=== PATIENT | female | born 1945 | race Caucasian/White ===

== ENCOUNTER → 2017-08-24 | Day surgery (SDC) | payer OTHER ==
[2017-08-04 11:38] VITALS: Ht 170.2 cm; Wt 80.9 kg
[~2017-08-24] VITALS: Ht 170.2 cm; Wt 80.9 kg
[~2017-08-24] MED LIST: 500ML BSSPLUS 0.5ML EPI1:1000 IRRIG ONE; ACETAMINOPHEN 325 MG TAB PO PRN; ASPI325T4 PO; ATOR-24 PO; ATROPINE SULFATE 0.1 MG/ML 5ML SYR IV PRN; ATROPINE SULFATE 1% OP OINT PER APPLICATION CHARGE ONE; ATROPINE SULFATE 1% OP SOLN 2 ML BTL ONE; BSS FLUSH ONE; BUPIVACAINE HCL 0.75% 10 ML AMP/VIAL ONE; BUPR-79 PO; CEFAZOLIN SOD 1 GM VIAL ONE; CHOL1000 PO; DEXAMETHASONE SOD INJ 4 MG/ML VIAL ONE; EpINEphrine INJ 1MG/ML AMP 1 MG/ML AMP ONE; FENTANYL CITRATE INJ 50 MCG/1 ML 2 ML VIAL IV PRN; FENTANYL CITRATE INJ 50 MCG/1 ML 2 ML VIAL ONE; HYALURONIDASE HUMAN 150 UNIT/ML INJ ONE; INDOCYANINE GREEN 25 MG/10 ML ONE; LABETALOL HCL IV 5 MG/ML 20ML IV PRN; LACTATED RINGER'S 1000ML 500 ML IV SCH; LIDOCAINE HCL 2% 2 ML VIAL (20MG/ML) ONE; MELO-83 PO; MIDAZOLAM HCL 1 MG/ML 2ML VIAL ONE; NEOMYCIN/POLYMYX/DEXAMETH OP OINT PER APP CHARGE ONE; NORT25CA PO; OCUCOAT 1 ML SOLN IO ONE; ONDANSETRON INJ 2 MG/ML 2 ML VIAL IV PRN; OXYB1TAB31 PO; POVIDONE-IODINE OP SOLN (SURGERY CNTR CHARGING ONLY) ONE; PRLSR20 PO; PROPARACAINE 0.5% OP SOLN PER DROP CHARGE OPL SCH; PROPOFOL IV EMULSION 10 MG/ML 20 ML VIAL IV ONE; SUMA50TA15 PO; TIMOLOL MALEATE 0.5% OP SOLN PER DROP CHARGE ONE; TOPI100T20 PO; TRAZ100T29 PO; TRIAMCINOLONE ACETONIDE OPHTH 40 MG/ML VIAL STERILE IO ONE; VANCOMYCIN HCL 1000MG/20ML VIAL ONE; VERA1TAB60 PO
[2017-08-24] MEDS: PHENYLEPHRINE HCL 2.5% OP SOLN PER DROP CHARGE OPL SCH ×2 (08:06→08:12)
[2017-08-24] MEDS: TROPICAMIDE 1% OP SOLN PER DROP CHARGE OPL SCH ×2 (08:07→08:13)
--- NOTE | 2017-08-24 08:26 | History & Physical Bridge - SC ---
H&P Re-Evaluation Bridge Note: Pt has macular pucker left eye and is having vitrectomy left eye. I have examined the patient, reviewed the History & Physical and in the interval since the performance of the History & Physical I have noted the following changes of clinical significance: No changes noted
--- NOTE | 2017-08-24 09:18 | [facility] Operative Report ---
Operative Report Date of Service Aug 24, 2017. Operative Report PREOPERATIVE DIAGNOSIS: Epiretinal membrane, left eye. ICD10: H35.372 POSTOPERATIVE DIAGNOSIS: same. PROCEDURE: 1. Pars plana vitrectomy, 23 gauge. 2. Membrane peeling of the internal limiting membrane and overlying epiretinal membrane. All to the left eye. CPT CODE: 83159 SURGEON: Israel Mcintosh D.O. COMPLICATIONS: None. ESTIMATED BLOOD LOSS: None. SPECIMENS: None. ANESTHESIA: Retrobulbar block and MAC. INDICATIONS FOR PROCEDURE: The patient has an epiretinal membrane that is visually significant. Vitrectomy surgery is indicated to decrease risk of vision loss and potentially improve vision. CONSENT: The risks, benefits and alternatives were discussed with the patient including but not limited to decreased visual acuity, failure to achieve desired results, loss of the eye, infection, pain, glaucoma, lens changes, retinal tears, retinal detachment, the need for more procedures, drooping of the eyelid, blindness, and double vision. The patient is aware of risks and consents to the surgery. Consent is signed and on the chart. OPERATION AND FINDINGS: The patient was brought to the operating room where the patient was identified by name, date, and medical record number. The surgical site was confirmed with the informed written consent. The patient was sedated by the anesthesiology team after which a 50:50 mixture of 2% lidocaine and 0.75% bupivacaine with hyaluronidase was administered in a standard retrobulbar fashion. A total of 4 ml was administered without difficulty. The patient was then prepped and draped in the usual sterile manner for retinal surgery. A wire lid speculum was placed and an Jonny 23-gauge trocar cannula system was employed. The inferior temporal trocar cannula was first placed in an angled fashion 3.75mm posterior to the surgical limbus and the infusion cannula was inserted into this cannula after which the intravitreal position was verified prior to turning the infusion on. Two more trocar cannulas were then inserted in an angled fashion, one in the superior temporal, and one in the superior nasal quadrant both 3.75mm posterior to the surgical limbus. A light pipe and vitrector were then introduced into the eye and the BIOM wide angle viewing system was brought into place. Standard core vitrectomy was performed the vitreous was insured to be totally detached from the posterior pole with the aid of the vitrector. Next 0.05ml of indocyanine green was placed over the macular surface to stain the internal limiting membrane. This was washed from the eye after 10 seconds. At this point a flat contact lens was placed on the surface of the eye and a flex scraper and ILM forceps were used to gently peel the internal limiting membrane and overlying epiretinal membrane off of the macular surface without difficulty. At this point scleral depression was performed for 360 degrees and no retinal tears or detachments were noted. The trocar cannulas were then removed and found to be water tight. The intraocular pressure was found to be within normal limits by palpation and subconjunctival injections of Kefzol and dexamethasone were administered inferiorly and superiorly. The wire lid speculum was removed. Maxitrol was applied to the surface of the eye. A light patch and shield were taped over the surface of the eye and the patient left the Operating Room in stable condition having tolerated the procedure well. DISPOSITION: The patient has an appointment the following morning in the Ophthalmology Clinic. The patient is to call immediately if there are any problems overnight. I attest to the content of the Intraoperative Record and any orders documented therein. Any exceptions are noted below.
--- NOTE | 2017-08-24 09:18 | Discharge Instructions-SurgCtr ---
Discharge Instructions Date of Service Aug 24, 2017. Visit Reason for Visit: Left Eye Epiretinal Membrane Discharge Discharge Diagnosis / Problem: same Discharge Goals Goal(s): Improve function Activity Recommendations Activity Limitations: per Instructions/Follow-up section Anesthesia . Post Anesthesia Instructions: If you have had General Anesthesia or IV Sedation: * Do not drive today. * Resume driving when surgeon permits. * Do not make important decisions or sign legal documents today. * Call surgeon for: 1. Temperature elevations greater than 101 degrees F. 2. Uncontrollable pain. 3. Excessive bleeding. 4. Persistent nausea and vomiting. 5. Medication intolerance (nausea, vomiting or rash). * For nausea and vomiting use only clear liquids such as: tea, soda, bouillon until nausea subsides, then gradually increase diet as tolerated. * If you have any concerns or questions, call your surgeon's office. If physician is unavailable and it is an emergency, call 911 or go to the nearest emergency room. . Instructions / Follow-Up Instructions / Follow-Up * May take Tylenol if needed for discomfort. * Do NOT remove eye shield. * NO straining, heavy lifting (>15 pounds) or bending below waist. * Avoid getting water or soap directly into operative eye. * Do NOT rub eye. If you experience increasing eye pain not relieved by medication, please contact us immediately at [phone]. If you are unable to reach someone at the above number, call [phone] and ask to speak with the EYE DOCTOR RAND TACKER. Inform them that you are a Dr. Mcintosh patient who had recent surgery. Diet Recommendations Home Diet: resume previous diet Procedures Procedures Performed: Left Eye 23 Gauge Vitrectomy, Membrane Peeling Pending Studies Studies pending at discharge: no Medical Emergencies . Who to Call and When: Medical Emergencies: If at any time you feel your situation is an emergency, please call 911 immediately. . Non-Emergent Contact Non-Emergency issues call your: Aircraft Painter Apprentice . . "Provider Documentation" section prepared by Israel Mcintosh. .
[2017-08-24 09:21] VITALS: TEMP 36.1
[2017-08-24 09:47] VITALS: BP 126/77; PULSE 73; O2SAT 97
--- NOTE | 2017-08-24 09:50 | Anesthesia Progress Nt - [facility] ---
Anesthesia Post Op Note Date & Time Aug 24, 2017 at 09:49 Vital Signs Pain Intensity: 3 Vital Signs Past 12 Hours Date Time Temp Pulse Resp B/P (MAP) Pulse Ox O2 Delivery O2 Flow Rate FiO2 08/24/17 09:47 73 16 126/77 (93) 97 Room Air 08/24/17 09:21 36.1 60 16 156/84 (108) 98 Room Air 08/24/17 07:56 36.4 81 18 141/63 (89) 97 Room Air Notes Mental Status: alert / awake / arousable, participated in evaluation Pt Amnestic to Procedure: Yes Nausea / Vomiting: adequately controlled Pain: adequately controlled Airway Patency, RR, SpO2: stable & adequate BP & HR: stable & adequate Hydration State: stable & adequate Anesthetic Complications: no major complications apparent
== END | disposition home or self-care (01) ==
LOC: X.SURG 07:47
PROVIDERS: ATTEND Ophthalmology
DX: H35.372 Puckering of macula, left eye (principal); F41.1 Generalized anxiety disorder; G47.00 Insomnia, unspecified; M47.816 Spondylosis without myelopathy or radiculopathy, lumbar region; D64.9 Anemia, unspecified; E11.9 Type 2 diabetes mellitus without complications; I10 Essential (primary) hypertension; E78.00 Pure hypercholesterolemia, unspecified; M19.90 Unspecified osteoarthritis, unspecified site; E66.9 Obesity, unspecified; E78.5 Hyperlipidemia, unspecified; F33.40 Major depressive disorder, recurrent, in remission, unspecified; Z98.41 Cataract extraction status, right eye; Z98.42 Cataract extraction status, left eye; Z87.81 Personal history of (healed) traumatic fracture; Z90.710 Acquired absence of both cervix and uterus; Z83.3 Family history of diabetes mellitus; Z96.649 Presence of unspecified artificial hip joint; Z82.49 Family history of ischemic heart disease and other diseases of the circulatory system; Z82.0 Family history of epilepsy and other diseases of the nervous system; Z83.42 Family history of familial hypercholesterolemia; Z68.30 Body mass index [BMI] 30.0-30.9, adult; Z79.82 Long term (current) use of aspirin

== ENCOUNTER 2018-09-01 07:07 | Inpatient (IN) ==
[2018-09-01] MEDS ORDERED: PIPERACILL/TAZOBAC CONSULT ACTIVE PRN (12:18)
[2018-09-01] MEDS ORDERED: PHENAZOPYRIDINE HCL 200 MG TAB PO PRN (12:58)
[2018-09-01 13:03] LABS: Hematocrit (blood only) 35.1 % (37-47); Hemoglobin 11.6 g/dL (12.0-16.0); Immature Granulocytes # (auto) 0.03 K/uL (0.00-0.02); Immature Granulocytes % (auto) 0.3 %; Lymphocytes % (auto) 6.8 %; Mean Corpuscular Volume 89.8 fL (80-100); Mean Platelet Volume 9.8 fL (7.4-10.4); Monocytes # (auto) 1.24 K/uL (0.11-0.59); Monocytes % (auto) 12.1 %; Neutrophils # (auto) 8.29 K/uL (1.4-6.5); Neutrophils % (auto) 80.8 %; Platelet Count 98 K/uL (130-400); Platelet Estimate Decreased (Normal); RDW Coefficient of Variation 12.8 % (11.5-14.5); RDW Standard Deviation 41.6 fL (36.4-46.3); Red Blood Count 3.91 M/uL (4.2-5.4); White Blood Count 10.26 K/uL (4.8-10.8)
[2018-09-01 13:11] LABS: Albumin Level 2.7 gm/dl (3.4-5.0); BUN Creatinine Ratio 18.7 (10-20); Calcium 7.8 mg/dl (8.5-10.1); Creatinine Clr Calc Pharmacy 73.6 ml/min; Est GFR (African American) 74.5; Est GFR (Non-African American) 64.3; Magnesium 1.7 mg/dl (1.8-2.4); Potassium 3.4 mmol/L (3.5-5.1)
[2018-09-01 13:13] LABS: INR 1.1 (0.9-1.1); Prothrombin Time 11.4 Seconds (9.0-12.0)
[2018-09-01 13:14] LABS: Albumin Globulin Ratio 0.8 (0.9-2); Bilirubin,Total 0.5 mg/dl (0.2-1); Globulin 3.5 gm/dl (2.5-4.0); Total Protein 6.2 gm/dl (6.4-8.2)
--- NOTE | 2018-09-01 13:26 | XRay Report ---
KUB CLINICAL HISTORY: UTI, evaluate for stone COMPARISON STUDY: None. FINDINGS: A right pelvic calcification reflects a phlebolith. Postoperative findings within the lumba r spine are noted as well as bilateral hip arthroplasties. No urinary calculi are identified. Moderat e gaseous distention of the transverse colon is noted. IMPRESSION: 1. No urinary calculus identified. 2. Moderate gaseous distention of the transverse colon, a nonspecific finding. Electronically signed by: Emanuel Lacey M.D. 09/01/2018 1:25 PM
[2018-09-01] MEDS: SODIUM CHLORIDE 0.9% 1000ML 1,000 ML IV SCH ×3 (13:28→23:49)
[2018-09-01] MEDS: PIPERACILLIN/TAZOBACTAM 4.5 GM in DEXTROSE 5% 100 ML IV SCH ×2 (13:28→20:37)
[2018-09-01] MEDS: IBUPROFEN 600 MG TAB PO PRN (13:28)
--- NOTE | 2018-09-01 13:36 | History & Physical Report ---
Date of Service September 01, 2018 Assessment & Plan (1) UTI (urinary tract infection): -Transferred from [facility], admitted to [facility] -Patient presented with 5 days of fevers, chills, body aches, generalized weakness -On presentation to [facility], temp 103F, HR 102, BP 148/52; initial lactate 2.3 with repeat being 1.6, UA grossly positive for UTI, WBC 11.5 K -Possible early sepsis -History of recurrent UTIs, with most recent cultures growing tetracycline resistant enterococcus and pansensitive E. coli -About 3 weeks ago, was treated with amoxicillin for enterococcus UTI after cystoscopy -S/P Zosyn and Invanz at [facility], will continue with Zosyn for now -Blood and urine cultures obtained at [facility], will need to follow results -Repeat labs on arrival to [facility] show WBC 10.2 K, lactic acid 1.7 -Febrile at 38.8; will utilize Motrin for now given the amount of Tylenol patient received [facility] (renal functions WNL) -IVF -KUB negative for renal calculi, consider CT if patient does not improve (2) Thrombocytopenia: -Platelet count 98K -No history of thrombocytopenia -No signs of bleeding -Possibly reactionary due to underlying infection -Follow CBC (3) Abnormal chest x-ray: -CXR [facility] suggesting possible right basilar infiltrate, however patient currently without pulmonary symptoms (4) HTN (hypertension): -BP controlled, continue verapamil (5) Diabetes mellitus type 2, diet-controlled: -Hgb A1c 5.9 05/2018 -Mild hyperglycemia noted on labs today, likely due to infection -will utilize NovoLog per protocol while hospitalized (6) Dyslipidemia: -Continue statin (7) Anxiety: (8) Depression: -Continue bupropion, nortriptyline, trazodone (9) Migraine: -Continue Topamax (10) DVT prophylaxis: -SCDs due to thrombocytopenia History of Present Illness Chief Complaint: Fever Primary Care Provider: Feliciano Steen MD 73 year old female who was transferred from [facility] ED for admission for fever and UTI. Patient reports she started to feel sick about 5 days ago. She reports body aches, chills, and generalized weakness. She did not take her temperature but suspected she had one. She reports a poor appetite but denies abdominal pain, nausea, vomiting, or diarrhea. No chest pain, shortness of breath, lightheadedness, dizziness, diaphoresis, syncopal events. No cough or sputum production. She has history of recurrent UTIs but denies any urinary symptoms. On 08/06, patient had a cysto for evaluation of microscopic hematuria and persistent urinary symptoms. Cultures grew enterococcus and patient was placed on amoxicillin which she has since completed. Pathology noted to be benign. When patient presented to [facility] ED last evening, she was febrile at 103, heart rate 102, BP stable at 148/52. Labs show WBC 11.5 K, creatinine 1.1, lactic acid 2.3 with recheck being 1.6. Patient was given Tylenol, Zosyn, Invanz, [address] was negative for acute findings. CXR questioned a right basilar pneumonia. At the time of my exam, patient is resting in bed in no acute distress reports she is feeling better. Vitals on arrival include temp 38.8, heart rate 93, BP 148/62. Allergies Allergy/AdvReac Type Severity Reaction Status Date / Time pregabalin Allergy Unknown SEVERE Unverified 08/24/17 07:54 EDEMA FROM KNEES TO FEET Home Medications Home Medications Medication Instructions Recorded Confirmed Type aspirin 81 mg PO DAILY 09/01/18 09/01/18 History atorvastatin 40 mg HS 09/01/18 09/01/18 History bupropion HCl 150 mg PO BID 09/01/18 09/01/18 History conjugated estrogens [Premarin] 1 applic VAGINAL MOWEFR 09/01/18 09/01/18 History meloxicam 15 mg PO DAILY 09/01/18 09/01/18 History nortriptyline 50 mg PO HS 09/01/18 09/01/18 History omeprazole 20 mg PO DAILY 09/01/18 09/01/18 History oxybutynin chloride 5 mg PO DAILY 09/01/18 09/01/18 History phenazopyridine [Pyridium] 200 mg PO TID PRN 09/01/18 09/01/18 History sumatriptan succinate [Imitrex] 50 mg PO UD PRN 09/01/18 09/01/18 History topiramate 100 mg PO HS 09/01/18 09/01/18 History trazodone 100 mg PO HS 02/27/19 02/27/19 History verapamil 240 mg PO DAILY 09/01/18 09/01/18 History Past Med/Surg History Medical History Anxiety (Chronic) Depression (Chronic) Migraine (Chronic) Esophageal stricture (Chronic) HTN (hypertension) (Chronic) Dyslipidemia (Chronic) Diabetes mellitus type 2, diet-controlled (Chronic) H/O: hysterectomy (Inactive) Surgical History H/O bladder repair surgery (Chronic) History of total left hip arthroplasty (Chronic) S/P TYLER (total abdominal hysterectomy) (Chronic) History of nasal surgery (Chronic) Previous back surgery (Chronic) History of cataract surgery (Chronic) H/O repair of left rotator cuff (Chronic) History of back surgery (Inactive) History of cataract surgery (Inactive) History of hip replacement (Inactive) left and right Family History Brother Heart attack, Onset Age: 46 Fatal Mother Parkinson's disease Father Multiple sclerosis Social History Preferred Language: Portuguese Communication Ability: Effective 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 Beliefs That Will Affect Care: None Current Living Situation: Spouse Other Information That Helps Us Care for You: No Feels Safe at Home: Yes Safety Concerns: Feels Safe At This Time Smoking Status: Never smoker Hx Alcohol Use: No Hx Substance Use: No Review of Systems ROS per HPI, all other systems reviewed and negative Physical Exam Vital Signs (Past 24 Hours): Last Vital Signs Temp 38.8 C H 09/01/18 11:17 Pulse 93 H 09/01/18 11:17 Resp 18 09/01/18 11:17 BP 148/62 H 09/01/18 11:17 Pulse Ox 98 09/01/18 11:17 Constitutional: WD/WN, vitals as above Eyes: PERRL, conjunctivae normal, anicteric sclerae ENMT: external ear and nose normal, oropharynx normal Respiratory: normal respiratory effort, lungs clear to auscultation Cardiovascular: Rate/Rhythm: regular rate and regular rhythm Vessels: normal peripheral pulses Extremities: no edema Gastrointestinal (Abdomen): normal bowel sounds, soft, nontender, no hepatosplenomegaly Musculoskeletal: no cyanosis or clubbing, extremities motor strength 5/5 Skin: no rashes, warm and dry Neurologic: PERRL, EOMI, accommodation nl, no face palsy, no dysarthria Psychiatric: A+Ox3, euthymic affect Genitourinary: no CVA tenderness Results & Data Laboratory Results Laboratory Last Values WBC 10.26 K/uL (4.8-10.8) 09/01/18 12: RBC 3.91 M/uL (4.2-5.4) L 09/01/18 12:28 Hgb 11.6 g/dL (12.0-16.0) L 09/01/18 12:28 Hct 35.1 % (37-47) L 09/01/18 12:28 MCV 89.8 fL (80-100) 09/01/18 12: MCH 29.7 pg (25-34) 09/01/18 12: MCHC 33.0 g/dL (32-36) 09/01/18 12:28 RDW Std Deviation 41.6 fL (36.4-46.3) 09/01/18 12:28 RDW Coeff of Cristel 12.8 % (11.5-14.5) 09/01/18 12: Plt Count 98 K/uL (130-400) L 09/01/18 12: MPV 9.8 fL (7.4-10.4) 09/01/18 12:28 Immature Gran % (Auto) 0.3 % 09/01/18 12:28 Neut % (Auto) 80.8 % 09/01/18 12:28 Lymph % (Auto) 6.8 % 09/01/18 12:28 Preston % (Auto) 12.1 % 09/01/18 12:28 Eos % (Auto) 0.0 % 09/01/18 12:28 Baso % (Auto) 0.0 % 09/01/18 12:28 Immature Gran # (Auto) 0.03 K/uL (0.00-0.02) H 09/01/18 12:28 Neut # (Auto) 8.29 K/uL (1.4-6.5) H 09/01/18 12:28 Lymph # (Auto) 0.70 K/uL (1.2-3.4) L 09/01/18 12:28 Preston # (Auto) 1.24 K/uL (0.11-0.59) H 09/01/18 12:28 Eos # (Auto) 0.00 K/uL (0-0.5) 09/01/18 12:28 Baso # (Auto) 0.00 K/uL (0-0.2) 09/01/18 12:28 Platelet Estimate Decreased (Normal) 09/01/18 12:28 PT 11.4 Seconds (9.0-12.0) 09/01/18 12:28 INR 1.1 (0.9-1.1) 09/01/18 12:28 Sodium 137 mmol/L (136-145) 09/01/18 12:28 Potassium 3.4 mmol/L (3.5-5.1) L 09/01/18 12:28 Chloride 110 mmol/L (98-107) H 09/01/18 12:28 Carbon Dioxide 20 mmol/L (21-32) L 09/01/18 12:28 Anion Gap 7.0 (3-11) 09/01/18 12:28 BUN 17 mg/dl (7-18) 09/01/18 12:28 Creatinine 0.89 mg/dl (0.6-1.2) 09/01/18 12:28 Est Cr Clr Drug Dosing 73.6 ml/min 09/01/18 12:28 Est GFR ( Amer) 74.5 09/01/18 12:28 Est GFR (Non-Af Amer) 64.3 09/01/18 12:28 BUN/Creatinine Ratio 18.7 (10-20) 09/01/18 12:28 Glucose 135 mg/dl (70-99) H 09/01/18 12:28 Lactate 1.7 mmol/L (0.4-2.0) 09/01/18 12:28 Calcium 7.8 mg/dl (8.5-10.1) L 09/01/18 12:28 Magnesium 1.7 mg/dl (1.8-2.4) L 09/01/18 12:28 Total Bilirubin 0.5 mg/dl (0.2-1) 09/01/18 12:28 AST 10 U/L (15-37) L 09/01/18 12:28 ALT 14 U/L (12-78) 09/01/18 12:28 Alkaline Phosphatase 103 U/L (45-117) 09/01/18 12:28 Total Protein 6.2 gm/dl (6.4-8.2) L 09/01/18 12:28 Albumin 2.7 gm/dl (3.4-5.0) L 09/01/18 12:28 Globulin 3.5 gm/dl (2.5-4.0) 09/01/18 12:28 Albumin/Globulin Ratio 0.8 (0.9-2) L 09/01/18 12:28 Code Status & VTE Plan VTE Prophylaxis Plan VTE Prophylaxis will be ordered: Yes Supervising Physician Co-Signing Physician Notes I have seen and examined the patient with nurse practitioner and agree with the assessment and plan as above and would like to comment that the is a 73 year old Female with medical history pertinent for recurrent Urinary tract infections (most recent cultures growing tetracycline resistant enterococcus and pansensitive E. coli) and current urine specimens growing from the transferring hospital from [facility] and recent instrumentation to bladder with cystoscopy by [facility] affiliated urology service. While being evaluated at [facility] for fever which is presumed to be from urinary tract infection, there was no genitourinary imaging and patient was sent to [facility] primarily because of the [facility] associated urology service is from this area. At this time, [facility] imaging in [facility] does not show any renal stones or suggestion of pyelonephritis. while this may still be a complicated urinary tract infection, do not believe immediate instrumentation by urologist is needed at this time. will attempt to treat with broad spectrum antibiotics. If patient's fever and symptoms does not respond to symptoms then will consider further abdominal/pelvic imaging and/or obtain urology consultation. will monitor if patient develops urinary retention and bladder scan as needed. currently no hahn Thrombocytopenia should be monitored closely in case of any interventions needed by urology agree with other medical issues and plans as listed by nurse practitioner Physical Exam General: obese Neuro: awake and alert, verbal Heart: regular rate Lungs: clear to auscultation bilaterally Abdomen: soft, nontender, bowel sounds present. abdomen feels warm to the touch Bladder: no tenderness on palpation Extremities: moves all extremities
[2018-09-01] MEDS ORDERED: HEPARIN SOD 5,000 UNIT/0.5 ML VIAL SQ SCH (14:00)
[2018-09-01] MEDS ORDERED: POTASSIUM CHLORIDE 20 MEQ TABCR PO STA (14:03)
[2018-09-01] MEDS ORDERED: GLUCOSE 40% GEL 15 GM TUBE PO PRN (14:05)
[2018-09-01] MEDS ORDERED: GLUCOSE 10 TABS/TUBE PO PRN (14:05)
[2018-09-01] MEDS ORDERED: DEXTROSE 50% 50 ML SYRINGE IV PRN (14:05)
[2018-09-01] MEDS ORDERED: GLUCAGON FOR INJ 1 MG VIAL SQ PRN (14:05)
[2018-09-01] MEDS ORDERED: CARBOHYDRATES FOR HYPOGLYCEMIA PO PRN (14:05)
[2018-09-01] MEDS: PREMARIN VAG CRM 14 APPLN/30 GM TUBE PV SCH (14:08)
[2018-09-01] MEDS: ASPIRIN 81 MG ECTAB PO SCH (14:26)
[2018-09-01] MEDS: PANTOprazole 40 MG TAB PO SCH (14:26)
[2018-09-01] MEDS: VERAPAMIL HCL 240 MG TABCR PO SCH (14:26)
[2018-09-01] MEDS ORDERED: MAGNESIUM SULFATE / D5W 1 GM/100 ML BAG IV ONE (14:30)
[2018-09-01] MEDS: INSULIN ASPART 100 UNITS/ML 3 ML PEN SC SCH ×2 (18:00→20:42)
--- NOTE | 2018-09-01 18:57 | Urology Consultation ---
Date of Consultation September 01, 2018 Assessment & Plan (1) UTI (urinary tract infection): sepsis- urine is the most likely source. will await cultures.. suspect blood cultures will be + as well with the fevers and rigors she had. she is comfrotable and fluids have helped along with ov abt It is worrying she had no typical cystitis symptoms during the illness. I asked pt and family to use thermometer at home with any future illnesses as we may have an opportunity to get her treated sooner if she reports any fevers prior to her progressing to such a serious illness like this time. happily she is already improving her lactic acid She is on typical therapy for utis, and has just started the topical estrogen cream 2 weeks ago so there has not been enough time to see if it is going to help. will follow. Present on Admission?: Yes History of Present Illness Reason for Consultation: Sepsis Requesting Physician: Dr Hutchins Attending Physician: Dimitry Hutchins MD History of Present Illness I am asked by Ely Verdin PA-C and Dr Hutchins to evaluate and treat patient for sepsis. She had an overwhelming febrile infectious illness starting 4 days prior to admission. She had a busy long 12 hr day going to [employer] then a golf show and was tired and achey Thursday night when she returned home. She slept well but woke up with headache and diffuse myalgias thursday am. She took her migraine medicine and went back to bed. when she woke up her headache was still present which is unusual for her. She began with chills on Thursday and poor appetite. Urine was not dark or cloudy or malodorous and she had no dysuria or specific kidney pain. Thursday she again had fatigue poor appetite, chills and body aches. Thursday night she had rigors and Thursday at 11pm she collapsed. She was taken by ambulance to [facility] and given IV fluids and iv abt. KUB was normal. She is feeling improved now after treatment but still tired. Allergies Allergy/AdvReac Type Severity Reaction Status Date / Time pregabalin Allergy Unknown SEVERE Unverified 08/24/17 07:54 EDEMA FROM KNEES TO FEET Home Medications Home Medications Medication Instructions Recorded Confirmed Type aspirin 81 mg PO DAILY 09/01/18 09/01/18 History atorvastatin 40 mg HS 09/01/18 09/01/18 History bupropion HCl 150 mg PO BID 09/01/18 09/01/18 History conjugated estrogens [Premarin] 1 applic VAGINAL MOWEFR 09/01/18 09/01/18 History meloxicam 15 mg PO DAILY 09/01/18 09/01/18 History nortriptyline 50 mg PO HS 09/01/18 09/01/18 History omeprazole 20 mg PO DAILY 09/01/18 09/01/18 History oxybutynin chloride 5 mg PO DAILY 09/01/18 09/01/18 History phenazopyridine [Pyridium] 200 mg PO TID PRN 09/01/18 09/01/18 History sumatriptan succinate [Imitrex] 50 mg PO UD PRN 09/01/18 09/01/18 History topiramate 100 mg PO HS 09/01/18 09/01/18 History trazodone 100 mg PO HS 09/01/18 09/01/18 History verapamil 240 mg PO DAILY 09/01/18 09/01/18 History Patient History Medical History Anxiety (Chronic) Depression (Chronic) Migraine (Chronic) Esophageal stricture (Chronic) HTN (hypertension) (Chronic) Dyslipidemia (Chronic) Diabetes mellitus type 2, diet-controlled (Chronic) H/O: hysterectomy (Inactive) Surgical History H/O bladder repair surgery (Chronic) History of total left hip arthroplasty (Chronic) S/P TYLER (total abdominal hysterectomy) (Chronic) History of nasal surgery (Chronic) Previous back surgery (Chronic) History of cataract surgery (Chronic) H/O repair of left rotator cuff (Chronic) History of back surgery (Inactive) History of cataract surgery (Inactive) History of hip replacement (Inactive) left and right Family History Brother Heart attack, Onset Age: 46 Fatal Mother Parkinson's disease Father Multiple sclerosis Social History Preferred Language: Central African Communication Ability: Effective Show Host Or Hostess Required: No Beliefs That Will Affect Care: None Current Living Situation: Spouse Other Information That Helps Us Care for You: No Feels Safe at Home: Yes Safety Concerns: Feels Safe At This Time Smoking Status: Never smoker Hx Alcohol Use: No Hx Substance Use: No Review of Systems pmh- DM, CAD, PVD, PSH- TAHBSO, left [employer], soc- retired, + children, no tobacco no alcohol ROS- no chest pain no SOB, + fever, + chills, + nausea, + weakness, no seizure, Bowels normal, no rash, no dysphagia Physical Exam Vital Signs (Past 24 Hours): Last Vital Signs Temp 36.8 C 09/01/18 16:58 Pulse 84 09/01/18 15:13 Resp 20 09/01/18 15:13 BP 126/63 09/01/18 15:13 Pulse Ox 96 09/01/18 15:13 Constitutional: WD/WN, vitals as above well developed and + obese; no acute distress Eyes: PERRL, conjunctivae normal, anicteric sclerae Respiratory: normal respiratory effort, lungs clear to auscultation Gastrointestinal (Abdomen): normal bowel sounds, soft, nontender, no hepatosplenomegaly Inspection/Auscultation: abdomen normal to inspection Skin: no rashes, warm and dry Psychiatric: A+Ox3, euthymic affect Orientation: oriented x 3 excellent historian
[2018-09-01] MEDS: ATORVASTATIN 40 MG TAB PO SCH (20:38)
[2018-09-01] MEDS: TRAZODONE HCL 100 MG TAB PO SCH (20:40)
[2018-09-01] MEDS: BuPROPion SR 150 MG TABCR PO SCH (20:41)
[2018-09-01] MEDS: NORTRIPTYLINE HCL 25 MG CAP PO SCH (20:42)
[2018-09-01] MEDS: TOPIRAMATE 100 MG TAB PO SCH (21:48)
[2018-09-02] MEDS: PIPERACILLIN/TAZOBACTAM 4.5 GM in DEXTROSE 5% 100 ML IV SCH ×3 (05:25→20:37)
[2018-09-02 07:34] LABS: Hematocrit (blood only) 31.8 % (37-47); Hemoglobin 10.4 g/dL (12.0-16.0); Mean Corpuscular Hgb Conc 32.7 g/dL (32-36); Mean Corpuscular Volume 89.6 fL (80-100); RDW Standard Deviation 42.8 fL (36.4-46.3); Red Blood Count 3.55 M/uL (4.2-5.4); White Blood Count 8.97 K/uL (4.8-10.8)
[2018-09-02] MEDS: ASPIRIN 81 MG ECTAB PO SCH (07:38)
[2018-09-02] MEDS: PANTOprazole 40 MG TAB PO SCH (07:38)
[2018-09-02] MEDS: BuPROPion SR 150 MG TABCR PO SCH ×2 (07:39→20:35)
[2018-09-02 07:41] LABS: Mean Platelet Volume 10.2 fL (7.4-10.4); Platelet Count 97 K/uL (130-400)
[2018-09-02] MEDS: OXYBUTYNIN CHLORIDE XL 5 MG TABCR PO SCH (07:42)
[2018-09-02] MEDS: VERAPAMIL HCL 240 MG TABCR PO SCH (07:43)
[2018-09-02 07:55] LABS: BUN Creatinine Ratio 22.4 (10-20); Calcium 7.7 mg/dl (8.5-10.1); Creatinine Clr Calc Pharmacy 87.3 ml/min; Est GFR (African American) 91.7; Est GFR (Non-African American) 79.1; Potassium 3.7 mmol/L (3.5-5.1)
[2018-09-02] MEDS: INSULIN ASPART 100 UNITS/ML 3 ML PEN SC SCH ×4 (08:43→20:38)
[2018-09-02] MEDS: SODIUM CHLORIDE 0.9% 1000ML 1,000 ML IV SCH ×2 (08:44→18:11)
[2018-09-02] MEDS: IBUPROFEN 600 MG TAB PO PRN (08:46)
[2018-09-02] MEDS ORDERED: SODIUM CHLORIDE 0.65% NA SOLN 45 ML (OCEAN) PRN (15:07)
--- NOTE | 2018-09-02 17:10 | Hospitalist Progress Note ---
Date of Service September 02, 2018 Assessment & Plan (1) Sepsis: resuscitated. Pulm and/or urine source. See below for details. (2) Pneumonia: RML infiltrate on xray at [facility]. Continue Zosyn. (3) UTI (urinary tract infection): Patient with recent positive urine culture in early August after a cystoscopy revealing tetracycline-resistant enterococcus. She presented with 5 days of fevers chills and body aches as well as generalized weakness to outside hospital ([facility]) just prior to arrival to [facility]. On presentation she was febrile and appeared septic. She was treated with broad-spectrum antibiotics and was transferred to [facility] as her Urologist has privileges here. Her urine was grossly positive for a urinary tract infection, however to date urine culture remains negative. Continue Zosyn (4) Thrombocytopenia: Stable, improved, likely related to consumption during infection (5) HTN (hypertension): -BP controlled, continue verapamil per home regimen. (6) Diabetes mellitus type 2, diet-controlled: Diet controlled, well controlled. A1c 5.9 in 05/2018. Continue fingersticks and NovoLog for coverage as needed. (7) Dyslipidemia: Lipitor (8) Depression: -Continue bupropion, nortriptyline, trazodone (9) Migraine: -Continue Topamax for migraine prophylaxis. She denies any headache since admission. (10) DVT prophylaxis: SCDs Full code Disposition-continue hospitalization. Workup today to include CT abdomen and pelvis. Lesvia Spain DO [facility] Hospitalist Subjective 73-year-old female presented with sepsis to outside hospital likely secondary to urinary source. She denies any symptoms today specifically, but reports some generalized weakness and fatigue. Appetite is low today. Physical Exam Vital Signs (Past 24 Hours): Last Vital Signs Temp 36.6 C 09/02/18 15:03 Pulse 71 09/02/18 15:03 Resp 16 09/02/18 15:03 BP 137/71 09/02/18 15:03 Pulse Ox 96 09/02/18 15:03 CONSTITUTIONAL: obese, vitals as above, NAD, lying supine in bed EYES: normal conjuctivae, no scleral icterus ENT: OP clear, MMM, no sinus TTP NECK: No LAD, no stiffness or restricted ROM. RESPIRATORY: clear to auscultation bilaterally, no crackles, rales or wheezes, normal respiratory effort CARDIOVASCULAR: regular rate and rhythm, S1 and 2 heard without murmurs, gallops or rubs, no JVD, no peripheral edema GASTROINTESTINAL: soft, nontender, nondistended, no CVA tenderness MUSCULOSKELETAL: moves all extremities equally, no gross focal deficits. G enerally weak. SKIN: warm and dry NEUROLOGIC: normal cognition, normal speech, no gross focal deficits. PSYCHIATRIC: alert cooperative and oriented to person, place and time.
[2018-09-02] MEDS: TRAZODONE HCL 100 MG TAB PO SCH (20:36)
[2018-09-02] MEDS: NORTRIPTYLINE HCL 25 MG CAP PO SCH (20:36)
[2018-09-02] MEDS: ATORVASTATIN 40 MG TAB PO SCH (20:36)
[2018-09-02] MEDS: TOPIRAMATE 100 MG TAB PO SCH (20:36)
[2018-09-03] MEDS: SODIUM CHLORIDE 0.9% 1000ML 1,000 ML IV SCH (03:54)
[2018-09-03] MEDS: PIPERACILLIN/TAZOBACTAM 4.5 GM in DEXTROSE 5% 100 ML IV SCH ×3 (04:00→20:50)
[2018-09-03 07:02] LABS: Hematocrit (blood only) 31.6 % (37-47); Hemoglobin 10.4 g/dL (12.0-16.0); Mean Corpuscular Hgb Conc 32.9 g/dL (32-36); Mean Corpuscular Volume 88.5 fL (80-100); Mean Platelet Volume 10.2 fL (7.4-10.4); Platelet Count 109 K/uL (130-400); RDW Coefficient of Variation 13.1 % (11.5-14.5); RDW Standard Deviation 42.7 fL (36.4-46.3); Red Blood Count 3.57 M/uL (4.2-5.4); White Blood Count 7.48 K/uL (4.8-10.8)
[2018-09-03] MEDS: OXYBUTYNIN CHLORIDE XL 5 MG TABCR PO SCH (08:06)
[2018-09-03] MEDS: IBUPROFEN 600 MG TAB PO PRN (08:06)
[2018-09-03] MEDS: PANTOprazole 40 MG TAB PO SCH (08:07)
[2018-09-03] MEDS: BuPROPion SR 150 MG TABCR PO SCH ×2 (08:07→20:52)
[2018-09-03] MEDS: ASPIRIN 81 MG ECTAB PO SCH (08:07)
[2018-09-03] MEDS: VERAPAMIL HCL 240 MG TABCR PO SCH (08:07)
[2018-09-03] MEDS: INSULIN ASPART 100 UNITS/ML 3 ML PEN SC SCH ×2 (08:35→14:50)
--- NOTE | 2018-09-03 08:44 | XRay Report ---
XR chest 1V portable CLINICAL HISTORY: fever, h/o pneumonia/sepsis COMPARISON STUDY: Chest radiograph January 16, 2016. FINDINGS: Anterior cervical spine fusion is incidentally noted. Lung volumes are diminished. This sug gests a hypoventilatory study. There are bibasilar opacities. There is pulmonary vascular congestion with possible mild pulmonary edema. Cardiac size is within normal limits. There may be a trace left p leural effusion. IMPRESSION: 1. Low lung volumes with bibasilar opacities which may reflect pneumonia or atelectasis. Radiographic follow up is recommended. 2. Pulmonary vascular congestion with possible mild pulmonary edema. Electronically signed by: Emanuel Lacey M.D. 09/03/2018 8:42 AM
--- NOTE | 2018-09-03 11:22 | Hospitalist Progress Note ---
Date of Service September 03, 2018 Assessment & Plan (1) Sepsis: resuscitated. Pulm and/or urine source. See below for details. (2) Pneumonia: RML infiltrate on xray at [facility]. Temp was up this morning. Chest x- ray reveals bibasilar atelectasis versus infiltrates. She reports coughing that is nonproductive. She is not much improved at this point. Continue Zosyn for empiric coverage of pneumonia. Of note blood cultures were checked to [facility] and are still negative to date. (3) UTI (urinary tract infection): Patient with recent positive urine culture in early August after a cystoscopy revealing tetracycline-resistant enterococcus. She presented with 5 days of fevers chills and body aches as well as generalized weakness to outside hospital ([facility]) just prior to arrival. On presentation she was febrile and appeared septic. She was treated with broad-spectrum antibiotics and was transferred to [facility] as she has a urology specialist who has privileges here. Her urine was grossly positive for a urinary tract infection, however to date urine culture remains negative. She has a new finding of CVA tenderness on the right today and is not much clinically improved overall. She also had a temperature this morning despite Zosyn continued for the last [address] of her abdomen pelvis without contrast and continue Zosyn at this time. We will continue to watch for urine culture results, however despite these being negative, will still likely treat for acute pyelonephritis. Appreciate urology weighing in. Patient is to continue estrogen cream for prophylaxis of recurrent UTIs which is an issue for her. (4) Thrombocytopenia: Stable, improved, likely related to consumption during infection (5) HTN (hypertension): -BP controlled, continue verapamil per home regimen. (6) Diabetes mellitus type 2, diet-controlled: Diet controlled, well controlled. A1c 5.9 in 05/2018. Fingersticks have been well under goal. Discontinuing NovoLog and fingersticks at this time. Continue diabetic diet. (7) Dyslipidemia: Lipitor (8) Depression: -Continue bupropion, nortriptyline, trazodone (9) Migraine: -Continue Topamax for migraine prophylaxis. She denies any headache since admission. (10) DVT prophylaxis: SCDs, start Lovenox as platelets greater than 100 K Full code Disposition-continue hospitalization. Workup today to include CT abdomen and pelvis. Lesvia Spain DO [facility] Hospitalist Subjective Reports not feeling much improved today. Reports persistent urgency of urination which is worse than her chronic urgency. Denies any dysuria but reports Pyridium has helped things in the past and she would like to try that. Denies any nausea and vomiting however, has no appetite. She is tolerating some p.o. Temp was up this morning. New CVA tenderness on the right was assessed on physical exam today. Overall she does not feel any worse but she does not feel any better. She does report some coughing that is nonproductive. She generally reports feeling weak. Physical Exam Vital Signs (Past 24 Hours): Last Vital Signs Temp 37.4 C 09/03/18 09:56 Pulse 92 H 09/03/18 07:27 Resp 22 09/03/18 07:27 BP 145/73 H 09/03/18 07:27 Pulse Ox 91 09/03/18 07:27 CONSTITUTIONAL: obese, vitals as above, NAD, lying supine in bed EYES: normal conjuctivae, no scleral icterus RESPIRATORY: clear to auscultation bilaterally, no crackles, rales or wheezes, normal respiratory effort CARDIOVASCULAR: regular rate and rhythm, S1 and 2 heard without murmurs, gallops or rubs, no JVD, no peripheral edema GASTROINTESTINAL: soft, nontender, nondistended, +CVA tenderness on the right MUSCULOSKELETAL: moves all extremities equally, no gross focal deficits. Generally weak. SKIN: warm and dry NEUROLOGIC: normal cognition, normal speech, no gross focal deficits. PSYCHIATRIC: alert cooperative and oriented to person, place and time. Results & Data Laboratory Results Short CBC 09/03/18 Range/Units 06:53 WBC 7.48 (4.8-10.8) K/uL Hgb 10.4 L (12.0-16.0) g/dL Hct 31.6 L (37-47) % Plt Count 109 L (130-400) K/uL Medications Administered Current Inpatient Medications Aspirin (Ecotrin Ectab) 81 mg PO DAILY [facility] Stop: 10/01/18 12:59 Last Admin: 09/03/18 08:07 Dose: 81 mg Documented by: Atorvastatin Calcium (Lipitor) 40 mg PO HS [facility] Stop: 10/01/18 20:59 Last Admin: 09/02/18 20:36 Dose: 40 mg Documented by: Bupropion HCl (Wellbutrin-Sr) 150 mg PO BID [facility] Stop: 10/01/18 20:59 Last Admin: 09/03/18 08:07 Dose: 150 mg Documented by: Dextrose (Dextrose 50%) 25 - 50 ml IV UD PRN; Protocol PRN Reason: Hypoglycemia Protocol Stop: 10/01/18 14:04 Estrogens Conjugated (Premarin Vag) 1 appln PV MOWEFR [facility] Stop: 10/01/18 13:59 Last Admin: 09/01/18 14:08 Dose: Not Given Documented by: Glucagon (Glucagen) 1 mg SQ UD PRN; Protocol PRN Reason: Hypoglycemia Protocol Stop: 10/01/18 14:04 Glucose (Glucose 40%) 15 - 30 gm PO UD PRN; Protocol PRN Reason: Hypoglycemia Protocol Stop: 10/01/18 14:04 Glucose (Dex4 Glucose) 4 - 8 tabs PO UD PRN; Protocol PRN Reason: Hypoglycemia Protocol Stop: 10/01/18 14:04 Piperacillin Sod/Tazobactam (Sod 4.5 gm/ Dextrose) 120 mls @ 30 mls/hr IV Q8H [facility]; Protocol Stop: 09/11/18 12:59 Last Infusion: 09/03/18 08:04 Dose: Infused Documented by: Ibuprofen (Motrin) 600 mg PO Q6H PRN PRN Reason: pain/fever Stop: 10/01/18 12:17 Last Admin: 09/03/18 08:06 Dose: 600 mg Documented by: Insulin Aspart (Novolog Flexpen) 0 units SC ACHS [facility] Stop: 10/01/18 16:29 Last Admin: 09/03/18 08:35 Dose: 3 units Documented by: Miscellaneous (Carbohydrates For Hypoglycemia) 15 - 30 gm PO UD PRN PRN Reason: Hypoglycemia Treatment Stop: 10/01/18 14:04 Miscellaneous Information (Consult) 1 ea N/A UD PRN PRN Reason: Consult Stop: 10/01/18 12:17 Nortriptyline HCl (Pamelor) 50 mg PO HS [facility] Stop: 10/01/18 20:59 Last Admin: 09/02/18 20:36 Dose: 50 mg Documented by: Oxybutynin Chloride (Ditropan Xl) 5 mg PO DAILY [facility] Stop: 10/02/18 08:59 Last Admin: 09/03/18 08:06 Dose: 5 mg Documented by: Pantoprazole Sodium (Protonix) 40 mg PO DAILY [facility] Stop: 10/01/18 12:59 Last Admin: 09/03/18 08:07 Dose: 40 mg Documented by: Phenazopyridine HCl (Pyridium) 200 mg PO TID PRN PRN Reason: urinary symptom Stop: 10/01/18 12:57 Sodium Chloride ([place] Nasal) 1 sprays NA PRN PRN PRN Reason: Dryness Stop: 10/02/18 15:06 Topiramate (Topamax) 100 mg PO HS [facility] Stop: 10/01/18 20:59 Last Admin: 09/02/18 20:36 Dose: 100 mg Documented by: Trazodone HCl (Desyrel) 100 mg PO HS [facility] Stop: 10/01/18 20:59 Last Admin: 09/02/18 20:36 Dose: 100 mg Documented by: Verapamil HCl (Calan Sr) 240 mg PO DAILY [facility] Stop: 10/01/18 12:59 Last Admin: 09/03/18 08:07 Dose: 240 mg Documented by:
--- NOTE | 2018-09-03 12:07 | CT Scan Report ---
CT OF THE ABDOMEN AND PELVIS WITHOUT CONTRAST CLINICAL HISTORY: UTI, +CVA tend, not clin improved COMPARISON STUDY: KUB September 01, 2018. TECHNIQUE: Axial images of the abdomen and pelvis were obtained without IV contrast. Images were revi ewed in the axial, sagittal, and coronal planes. Automated exposure control was utilized for the berenice dy. A dose lowering technique was utilized adhering to the principles of ALARA. FINDINGS: Imaged portions of the lower chest demonstrate small bilateral pleural effusions. Interlobu lar septal thickening indicates pulmonary edema. There are bilateral lower lobe, lingular and right m iddle lobe airspace opacities. Evaluation of the abdomen and pelvis is suboptimal on this unenhanced exam. No pneumatosis, free air or portal venous gas is present. A small amount of ascites within the right upper quadrant is noted. There is a small amount of ascites within the pelvis as well. Images o f the pelvis are degraded by streak artifact from bilateral hip arthroplasties. A 3 mm calculus withi n the lower pole of the left kidney is present. There is no hydronephrosis or hydroureter. Evaluation for distal ureteral calculi is difficult given streak artifact. Postoperative findings within the sp ine are noted. Unenhanced images of liver, spleen, adrenal glands are unremarkable. Marked fatty atro phy of the pancreas is noted. No biliary or pancreatic ductal dilatation. There is no evidence for a bowel obstruction. There is sigmoid diverticulosis without evidence for acute diverticulitis. No susp icious osseous lesions are noted. No renal abscess is identified on this unenhanced exam. There is no significant perinephric infiltration. IMPRESSION: 1. 3 mm left renal calculus. No hydronephrosis. No ureteral calculi identified although evaluation fo r distal ureteral calculi is difficult given streak artifact from hip arthroplasties. 2. No renal abscess on unenhanced CT. 3. Small bilateral pleural effusions with mild pulmonary edema. Bilateral lower lobe, lingular and ri ght middle lobe opacities which may reflect atelectasis or pneumonia. 4. Small abdominal and pelvic ascites. 5. Electronically signed by: Emanuel Lacey M.D. 09/03/2018 12:06 PM
[2018-09-03] MEDS: PREMARIN VAG CRM 14 APPLN/30 GM TUBE PV SCH (12:37)
[2018-09-03] MEDS ORDERED: FUROSEMIDE 10 MG in SYRINGE 0 ML IV ONE (13:00)
[2018-09-03] MEDS ORDERED: ENOXAPARIN INJ 40 MG/0.4 ML SYR SQ ONE (13:00)
[2018-09-03] MEDS: PHENAZOPYRIDINE HCL 200 MG TAB PO SCH ×2 (13:23→20:52)
[2018-09-03] MEDS: TRAZODONE HCL 100 MG TAB PO SCH (20:51)
[2018-09-03] MEDS: TOPIRAMATE 100 MG TAB PO SCH (20:51)
[2018-09-03] MEDS: NORTRIPTYLINE HCL 25 MG CAP PO SCH (20:51)
[2018-09-03] MEDS: ATORVASTATIN 40 MG TAB PO SCH (20:51)
[2018-09-04] MEDS: PIPERACILLIN/TAZOBACTAM 4.5 GM in DEXTROSE 5% 100 ML IV SCH ×2 (04:57→13:33)
[2018-09-04 06:45] LABS: Hemoglobin 9.7 g/dL (12.0-16.0); Mean Corpuscular Hgb Conc 33.4 g/dL (32-36); Mean Corpuscular Volume 88.1 fL (80-100); Mean Platelet Volume 9.9 fL (7.4-10.4); Platelet Count 137 K/uL (130-400); RDW Coefficient of Variation 13.3 % (11.5-14.5); RDW Standard Deviation 42.9 fL (36.4-46.3); Red Blood Count 3.29 M/uL (4.2-5.4); White Blood Count 5.93 K/uL (4.8-10.8)
[2018-09-04 07:32] LABS: BUN Creatinine Ratio 14.3 (10-20); Calcium 7.9 mg/dl (8.5-10.1); Creatinine Clr Calc Pharmacy 82.9 ml/min; Est GFR (African American) 86.1; Est GFR (Non-African American) 74.3; Potassium 3.6 mmol/L (3.5-5.1)
[2018-09-04] MEDS: VERAPAMIL HCL 240 MG TABCR PO SCH (08:53)
[2018-09-04] MEDS: ASPIRIN 81 MG ECTAB PO SCH (08:54)
[2018-09-04] MEDS: BuPROPion SR 150 MG TABCR PO SCH ×2 (08:54→20:59)
[2018-09-04] MEDS: PANTOprazole 40 MG TAB PO SCH (08:54)
[2018-09-04] MEDS: PHENAZOPYRIDINE HCL 200 MG TAB PO SCH ×3 (08:54→20:58)
[2018-09-04] MEDS: ENOXAPARIN INJ 40 MG/0.4 ML SYR SQ SCH (09:16)
--- NOTE | 2018-09-04 14:47 | Hospitalist Progress Note ---
Date of Service September 04, 2018 Assessment & Plan (1) Sepsis: resuscitated. Pulm and/or urine source. See below for details. (2) Pneumonia: RML infiltrate on xray at [facility]. Not visualized on CXR here, but she did have bilateral infiltrates at the bases consistent with atelectasis vs infection. Zosyn has been continued since admission and she is clinically improved. Nonproductive Cough yesterday, which was likely secondary to fluid overload in setting of appropriate aggressive resuscitation efforts, has resolved today after IVF stopped and Lasix was given x one dose. Will transition her to Levaquin 750 mg p.o. times 5 days. This will cover her from a pulmonary and urine standpoint. Of note urinalysis revealed evidence of infection, however, culture was finalized revealing <10K CFU of normal sabi. Additionally, she just took a 10-day course of amoxicillin as outpatient in early August, so would like to give her something different. (3) UTI (urinary tract infection): [facility] reports a final urine culture today of less than 10,000 colony- forming units of mixed sabi. The patient reports a resolution of bladder discomfort with Pyridium overnight. Transition to Levaquin as above. Continue with estrogen for prevention of recurrent UTIs. (4) Thrombocytopenia: Stable, improved, likely related to consumption during infection (5) HTN (hypertension): -BP controlled, continue verapamil per home regimen. (6) Diabetes mellitus type 2, diet-controlled: Diet controlled, well controlled. A1c 5.9 in 05/2018. Fingersticks and Novolog coverage were discontinued as she is in range consistently. Cont ADA diet. (7) Dyslipidemia: Lipitor (8) Depression: -Continue bupropion, nortriptyline, trazodone no hold as can interact with FQ and cause QTc prolongation. Will need to hold while taking the Levaquin. (9) Migraine: -Continue Topamax for migraine prophylaxis. She denies any headache since admission. (10) Anemia: Likely 2/2 dilutional effect. No bleeding. (11) DVT prophylaxis: SCDs, will add Lovenox today Full code Disposition-Likely DC in am. Lesvia Spain, [facility] Hospitalist Subjective clinically improved overall today tolerating PO denies abdominal pain or CVA tenderness reports resolution of urgency and dysuria no fevers or chills got some sleep overnight. at bedside and all plan was discussed with him. All questions answered. Physical Exam Vital Signs (Past 24 Hours): Last Vital Signs Temp 36.6 C 09/04/18 07:32 Pulse 75 09/04/18 07:32 Resp 20 09/04/18 07:32 BP 137/78 09/04/18 07:32 Pulse Ox 94 09/04/18 07:32 CONSTITUTIONAL: obese, vitals as above, NAD, lying supine in bed EYES: normal conjuctivae, no scleral icterus RESPIRATORY: clear to auscultation bilaterally, no crackles, rales or wheezes, normal respiratory effort CARDIOVASCULAR: regular rate and rhythm, S1 and 2 heard without murmurs, gallops or rubs, no JVD, no peripheral edema GASTROINTESTINAL: soft, nontender, nondistended, +CVA tenderness on the right MUSCULOSKELETAL: moves all extremities equally, no gross focal deficits. Generally weak. SKIN: warm and dry NEUROLOGIC: normal cognition, normal speech, no gross focal deficits. PSYCHIATRIC: alert cooperative and oriented to person, place and time. Results & Data Laboratory Results Short CBC 09/04/18 Range/Units 06:08 WBC 5.93 (4.8-10.8) K/uL Hgb 9.7 L (12.0-16.0) g/dL Hct 29.0 L (37-47) % Plt Count 137 (130-400) K/uL BMP 09/04/18 06:08 Sodium 141 Potassium 3.6 Chloride 114 H Carbon Dioxide 19 L BUN 11 Creatinine 0.79 Glucose 127 H Calcium 7.9 L Medications Administered Current Inpatient Medications Aspirin (Ecotrin Ectab) 81 mg PO DAILY [facility] Stop: 10/01/18 12:59 Last Admin: 09/04/18 08:54 Dose: 81 mg Documented by: Atorvastatin Calcium (Lipitor) 40 mg PO HS [facility] Stop: 10/01/18 20:59 Last Admin: 09/03/18 20:51 Dose: 40 mg Documented by: Bupropion HCl (Wellbutrin-Sr) 150 mg PO BID [facility] Stop: 10/01/18 20:59 Last Admin: 09/04/18 08:54 Dose: 150 mg Documented by: Enoxaparin Sodium (Lovenox) 40 mg SQ QAM [facility] Stop: 10/04/18 08:59 Last Admin: 09/04/18 09:16 Dose: 40 mg Documented by: Estrogens Conjugated (Premarin Vag) 1 appln PV MOWEFR [facility] Stop: 10/01/18 13:59 Last Admin: 09/03/18 12:37 Dose: Not Given Documented by: Piperacillin Sod/Tazobactam (Sod 4.5 gm/ Dextrose) 120 mls @ 30 mls/hr IV Q8H [facility]; Protocol Stop: 09/11/18 12:59 Last Admin: 09/04/18 13:33 Dose: 30 mls/hr Documented by: Ibuprofen (Motrin) 600 mg PO Q6H PRN PRN Reason: pain/fever Stop: 10/01/18 12:17 Last Admin: 09/03/18 08:06 Dose: 600 mg Documented by: Miscellaneous Information (Consult) 1 ea N/A UD PRN PRN Reason: Consult Stop: 10/01/18 12:17 Nortriptyline HCl (Pamelor) 50 mg PO HS [facility] Stop: 10/01/18 20:59 Last Admin: 09/03/18 20:51 Dose: 50 mg Documented by: Oxybutynin Chloride (Ditropan Xl) 5 mg PO DAILY [facility] Stop: 10/02/18 08:59 Last Admin: 09/03/18 08:06 Dose: 5 mg Documented by: Pantoprazole Sodium (Protonix) 40 mg PO DAILY [facility] Stop: 10/01/18 12:59 Last Admin: 09/04/18 08:54 Dose: 40 mg Documented by: Phenazopyridine HCl (Pyridium) 200 mg PO TID [facility] Stop: 09/05/18 13:59 Last Admin: 09/04/18 13:37 Dose: 200 mg Documented by: Sodium Chloride ([place] Nasal) 1 sprays NA PRN PRN PRN Reason: Dryness Stop: 10/02/18 15:06 Topiramate (Topamax) 100 mg PO HS [facility] Stop: 10/01/18 20:59 Last Admin: 09/03/18 20:51 Dose: 100 mg Documented by: Trazodone HCl (Desyrel) 100 mg PO HS [facility] Stop: 10/01/18 20:59 Last Admin: 09/03/18 20:51 Dose: 100 mg Documented by: Verapamil HCl (Calan Sr) 240 mg PO DAILY [facility] Stop: 10/01/18 12:59 Last Admin: 09/04/18 08:53 Dose: 240 mg Documented by:
[2018-09-04] MEDS ORDERED: ENOXAPARIN INJ 40 MG/0.4 ML SYR SQ SCH (15:15)
[2018-09-04] MEDS: ATORVASTATIN 40 MG TAB PO SCH (20:58)
[2018-09-04] MEDS: NORTRIPTYLINE HCL 25 MG CAP PO SCH (20:59)
[2018-09-04] MEDS: TOPIRAMATE 100 MG TAB PO SCH (21:00)
[2018-09-04] MEDS ORDERED: levoFLOXacin 750 MG TAB PO SCH (21:00)
[2018-09-05] MEDS: BuPROPion SR 150 MG TABCR PO SCH (08:06)
[2018-09-05] MEDS: PANTOprazole 40 MG TAB PO SCH (08:06)
[2018-09-05] MEDS: ENOXAPARIN INJ 40 MG/0.4 ML SYR SQ SCH (08:07)
[2018-09-05] MEDS: VERAPAMIL HCL 240 MG TABCR PO SCH (08:07)
[2018-09-05] MEDS: ASPIRIN 81 MG ECTAB PO SCH (08:07)
[2018-09-05] MEDS: PHENAZOPYRIDINE HCL 200 MG TAB PO SCH (08:07)
[2018-09-05 08:17] LABS: Hematocrit (blood only) 31.1 % (37-47); Hemoglobin 10.3 g/dL (12.0-16.0); Mean Corpuscular Hgb Conc 33.1 g/dL (32-36); Mean Corpuscular Volume 88.4 fL (80-100); Mean Platelet Volume 9.6 fL (7.4-10.4); Platelet Count 145 K/uL (130-400); RDW Coefficient of Variation 13.5 % (11.5-14.5); RDW Standard Deviation 43.4 fL (36.4-46.3); Red Blood Count 3.52 M/uL (4.2-5.4)
[2018-09-05] MEDS: OXYBUTYNIN CHLORIDE XL 5 MG TABCR PO SCH (08:26)
[2018-09-05 08:36] LABS: Calcium 8.4 mg/dl (8.5-10.1); Creatinine Clr Calc Pharmacy 100.7 ml/min; Est GFR (African American) 102.1; Est GFR (Non-African American) 88.1
[2018-09-05 09:24] LABS: BUN Creatinine Ratio 18.8 (10-20)
[2018-09-05] MEDS ORDERED: POTASSIUM CHLORIDE 20 MEQ TABCR PO ONE (10:45)
--- NOTE | 2018-09-05 11:48 | Discharge Summary ---
Date of Service September 05, 2018 Admission HPI Per Admitting Provider 73 year old female who was transferred from [facility] ED for admission for fever and UTI. Patient reports she started to feel sick about 5 days ago. She reports body aches, chills, and generalized weakness. She did not take her temperature but suspected she had one. She reports a poor appetite but denies abdominal pain, nausea, vomiting, or diarrhea. No chest pain, shortness of breath, lightheadedness, dizziness, diaphoresis, syncopal events. No cough or sputum production. She has history of recurrent UTIs but denies any urinary symptoms. On 08/06, patient had a cysto for evaluation of microscopic hematuria and p ersistent urinary symptoms. Cultures grew enterococcus and patient was placed on amoxicillin which she has since completed. Pathology noted to be benign. When patient presented to [facility] ED last evening, she was febrile at 103, heart rate 102, BP stable at 148/52. Labs show WBC 11.5 K, creatinine 1.1, lactic acid 2.3 with recheck being 1.6. Patient was given Tylenol, Zosyn, Invanz, [address] was negative for acute findings. CXR questioned a right basilar pneumonia. At the time of my exam, patient is resting in bed in no acute distress reports she is feeling better. Vitals on arrival include temp 38.8, heart rate 93, BP 148/62. Admission Exam Per Admitting Provider WD/WN, vitals as above Eyes: PERRL, conjunctivae normal, anicteric sclerae ENMT: external ear and nose normal, oropharynx normal Respiratory: normal respiratory effort, lungs clear to auscultation Cardiovascular: Rate/Rhythm: regular rate and regular rhythm Vessels: normal peripheral pulses Extremities: no edema Gastrointestinal (Abdomen): normal bowel sounds, soft, nontender, no hepatosplenomegaly Musculoskeletal: no cyanosis or clubbing, extremities motor strength 5/5 Skin: no rashes, warm and dry Neurologic: PERRL, EOMI, accommodation nl, no face palsy, no dysarthria Psychiatric: A+Ox3, euthymic affect Genitourinary: no CVA tenderness Principal Diagnosis Sepsis-resolved UTI Pneumonia Discharge Data Allergies Allergy/AdvReac Type Severity Reaction Status Date / Time pregabalin Allergy Unknown SEVERE Unverified 08/24/17 07:54 EDEMA FROM KNEES TO FEET Consultations 09/01/18 19:40 Consult Urology Routine Ordered Studies 09/03/18 11:30 CT abd pelvis wo con Urgent Hospital Course (1) Sepsis: resuscitated. Pulm and/or urine source. See below for details. (2) Pneumonia: (3) UTI (urinary tract infection): (4) Thrombocytopenia: (5) HTN (hypertension): (6) Diabetes mellitus type 2, diet-controlled: (7) Dyslipidemia: (8) Depression: (9) Migraine: (10) Anemia: 73-year-old female was transferred from [facility] for sepsis. On presentation to [facility] her temp was 103 F, heart rate 102, blood pressure 148/52. Initial lactate was 2.3 with repeat 1.6. Her white blood cell count was 11.5K. She had a known history of recurrent UTIs with most recent history of tetracycline-resistant enterococcus UTI after cystoscopy. She was transferred to [facility] as her urologist was here. She was given Zosyn and Invanz at [facility] and was continued on Zosyn at [facility]. Blood and urine cultures were obtained to [facility] and were followed. At time of discharge from [facility] finalized urine culture revealed no growth, and blood cultures were also negative to date. She was initially admitted to the floor and remained febrile. Aggressive fluid resuscitation was appropriately given. A KUB was negative for renal calculus. She had a thrombocytopenia secondary to infection which resolved during the admission with antibiotics. She was also found to have a right middle lobe infiltrate at [facility], but without pneumonia symptoms. She did start coughing on day 2 of hospitalization, but this was nonproductive. Repeat chest x-ray and subsequent CT of the abdomen and pelvis was performed revealing pulmonary edema, likely secondary to aggressive fluid resuscitation. She was given one dose of Lasix IV with complete resolution of shortness of breath. Zosyn was ultimately switched to Levaquin 750 mg p.o. daily to cover both pulmonary and urine sources. Amoxicillin was considered but not used as patient was recently treated with this 3 weeks ago as outpatient. Per urology she should continue her topical estrogen cream as instructed to help prevent recurrent UTIs moving forward. At time of discharge she was stable and afebrile for greater than 48 hours. She was tolerating p.o., ambulating at baseline and mentating at baseline. As she was started on Levaquin, trazodone was instructed to be held until antibiotic course was completed. This was to avoid unnecessary QTc prolongation. An EKG was performed to measure a QTC which was 471, not a contraindication for fluoroquinolone therapy. She and her verbalized understanding of all instructions with intent to comply. It is recommended that she follow-up with primary care within 1 week of discharge. Physical exam at time of discharge was unremarkable. Total Time Total Time Spent Total Time Spent (In Minutes): 60 Total Time Includes: Examination of the Patient, Discharge Planning, Medication Reconciliation and Communication With Other Providers Discharge Plan Discharge Items Patient Disposition: Home - Self-Care Reason For Visit: UTI Discharge Diagnosis: Sepsis-resolved UTI Pneumonia Condition: Good Discharge Goals: Decrease discomfort Activity: Resume your previous activity Non-emergency contact: Primary Care Provider Call non-emergency contact if: you have any medication questions, your symptoms worsen, your pain is not controlled, your pain is worsening, your pain is unusual for you, your pain is concerning for you and you have a fever Follow-up/Referrals: Feliciano Steen MD [Primary Care Provider] - Diet: Carb Consistent or DM2 and Heart Healthy Addtl Provider Instructions: Please take all medications as instructed on discharge list below. Please continue to hold taking the TRAZODONE while you are taking the LEVAQUIN. It is ok to resume this when the LEVAQUIN course is completed. It is recommended that you have a followup chest xray in 4-6 weeks to ensure complete resolution of the pneumonia. It is recommended that you follow up with your primary care provider within one week of discharge. Someone from our staff will call you on Thursday to set that up. It was a pleasure taking care of you! Please call if you have any questions or problems. You can reach a [facility] hospitalist on duty at [facility] 24 hours a day by calling [phone]. Take care of yourself. Lesvia Spain, [facility] [address] [facility] Hospitalist Prescriptions: New levofloxacin 750 mg Tablet 750 mg PO DAILY@2100 6 Days Qty: 6 RF: 0 Continued phenazopyridine [Pyridium] 200 mg Tablet 200 mg PO TID PRN (Reason: urinary symptom) RF: 0 aspirin 81 mg Tablet,Delayed Release (Dr/Ec) 81 mg PO DAILY RF: 0 Premarin 0.625 mg/gram cream 1 applic Vaginal MOWEFR RF: 0 atorvastatin 40 mg tablet 40 mg HS RF: 0 bupropion HCl 150 mg tablet sustained-release 12 hr 150 mg PO BID RF: 0 meloxicam 15 mg tablet 15 mg PO DAILY RF: 0 sumatriptan succinate [Imitrex] 50 mg Tablet 50 mg PO UD PRN (Reason: Migraine Headache) RF: 0 nortriptyline 25 mg capsule 50 mg PO HS RF: 0 trazodone 100 mg tablet 100 mg PO HS RF: 0 oxybutynin chloride 5 mg tablet extended release 24hr 5 mg PO DAILY RF: 0 omeprazole 20 mg capsule,delayed release(DR/EC) 20 mg PO DAILY RF: 0 verapamil 240 mg tablet extended release 240 mg PO DAILY RF: 0 topiramate 100 mg tablet 100 mg PO HS RF: 0 Stand-Alone Forms: [facility] Discharge Orders: Discharge Order (Routine); Ordered 09/05/18 Ordered By: Lesvia Spain Admission Data Admit Date/Time: 09/01/18 11:07 Attending Provider: Lesvia Spain Admit Provider: Dimitry Hutchins Primary Care Provider: Feliciano Steen Other Providers: Amy Bridges ; Lesvia Spain Service: Medical Other Interventions: Discharge Summary Assessment (RN) Last Done: 09/05/18 11:36 DC Date/Time DO NOT enter until pt leaves facility: 09/05/18 12:17
== END 2018-09-05 12:17 | disposition home or self-care (01) | DRG 871 ==
LOC: SUATTDRO 11:07 → 4E 11:07

== ENCOUNTER 2019-03-23 15:26 | Inpatient (IN) ==
[2019-03-23 16:15] LABS: Appearance Urine Cloudy (Clear); Bilirubin Urine Negative (Negative); Blood Urine 1+ (Negative); Color Urine Yellow; Glucose Urine UA Negative (Negative); Ketones Urine Negative (Negative); Leukocyte Esterase Urine 3+ (Negative); Nitrite Urine Negative (Negative); Protein Urine Negative (Negative); Specific Gravity Urine 1.012 (1.000-1.030); Urobilinogen Urine Negative (Negative)
[2019-03-23 16:37] LABS: Bacteria Urine Automated 1+ (Negative); Cast Urine Automated 0 /lpf (0-5); RBC Urine Automated 0-4 /hpf (0-4); WBC Urine Automated >30 /hpf (0-5)
[2019-03-23 18:07] LABS: Basophils # (auto) 0.02 K/uL (0-0.2); Basophils % (auto) 0.2 %; Eosinophils # (auto) 0.03 K/uL (0-0.5); Eosinophils % (auto) 0.3 %; Hematocrit (blood only) 33.5 % (37-47); Immature Granulocytes # (auto) 0.02 K/uL (0.00-0.02); Immature Granulocytes % (auto) 0.2 %; Lymphocytes # (auto) 1.25 K/uL (1.2-3.4); Lymphocytes % (auto) 12.5 %; Mean Corpuscular Hemoglobin 29.3 pg (25-34); Mean Corpuscular Hgb Conc 32.8 g/dL (32-36); Mean Corpuscular Volume 89.1 fL (80-100); Mean Platelet Volume 9.8 fL (7.4-10.4); Neutrophils # (auto) 7.47 K/uL (1.4-6.5); Neutrophils % (auto) 74.8 %; Platelet Count 158 K/uL (130-400); RDW Coefficient of Variation 13.3 % (11.5-14.5); RDW Standard Deviation 43.6 fL (36.4-46.3); Red Blood Count 3.76 M/uL (4.2-5.4); White Blood Count 9.99 K/uL (4.8-10.8)
[2019-03-23 18:23] LABS: Albumin Level 3.2 gm/dl (3.4-5.0); BUN Creatinine Ratio 12.7 (10-20); Calcium 9.1 mg/dl (8.5-10.1); Creatinine Clr Calc Pharmacy 43.1 ml/min; Est GFR (African American) 51.9; Est GFR (Non-African American) 44.8; Potassium 3.9 mmol/L (3.5-5.1)
[2019-03-23 18:26] LABS: Albumin Globulin Ratio 0.8 (0.9-2); Bilirubin,Total 0.6 mg/dl (0.2-1); Globulin 4.2 gm/dl (2.5-4.0); Total Protein 7.4 gm/dl (6.4-8.2)
[2019-03-23] MEDS ORDERED: SODIUM CHLORIDE 0.9% 1000ML 500 ML IV ONE (18:37)
[2019-03-23] MEDS ORDERED: SULFAMETHOXAZOLE/TRIMETHOPRIM DS 800/160MG TAB PO ONE (18:37)
--- NOTE | 2019-03-23 19:12 | CT Scan Report ---
CT OF THE ABDOMEN AND PELVIS WITHOUT CONTRAST CLINICAL HISTORY: Right flank pain. Evaluate for stone. COMPARISON STUDY: CT of the abdomen and pelvis September 03, 2018. TECHNIQUE: Axial images of the abdomen and pelvis were obtained without IV contrast. Images were revi ewed in the axial, sagittal, and coronal planes. Automated exposure control was utilized for the berenice dy. A dose lowering technique was utilized adhering to the principles of ALARA. FINDINGS: Incidental note is made of bilateral total hip arthroplasties and postoperative findings wi thin the lumbar spine. A 4 mm left ureteropelvic junction calculus results in moderate left hydroneph rosis. There is a punctate left renal calculus. There is no right hydronephrosis. Images of the pelvi s are degraded by streak artifact from bilateral hip arthroplasties. Unenhanced images of the liver, spleen, adrenal glands are unremarkable. Glandular atrophy of the pancreas is noted. There is no evid ence for a bowel obstruction. No pneumatosis, free air or portal venous gas is noted. Borderline sple nomegaly is unchanged. Trace fluid within the pelvis is noted. Colonic diverticulosis is present with out evidence for acute diverticulitis. IMPRESSION: 1. 4 mm left ureteropelvic junction calculus results in moderate left hydronephrosis with mild perine phric infiltration. 2. Punctate left renal calculus. Electronically signed by: Emanuel Lacey M.D. 03/23/2019 7:11 PM
[2019-03-23] MEDS ORDERED: PIPERACILL/TAZOBAC CONSULT ACTIVE PRN ×2 (19:19→22:48)
[2019-03-23] MEDS ORDERED: PIPERACILLIN/TAZOBACTAM 4.5 GM/120 ML BAG IV ONE (19:19)
[2019-03-23] MEDS ORDERED: ACETAMINOPHEN 1000 MG/100 ML IV IV ONE (19:43)
[2019-03-23] MEDS ORDERED: fentaNYL citrate 100 MCG/2 ML VIAL IV PRN (20:11)
[2019-03-23] MEDS ORDERED: LABETALOL HCL IV 5 MG/ML 20ML IV PRN (20:11)
[2019-03-23] MEDS ORDERED: ONDANSETRON INJ 2 MG/ML 2 ML VIAL IV PRN (20:11)
[2019-03-23] MEDS ORDERED: PHENYLEPHRINE 100MCG/ML 5ML SYR IV PRN (20:11)
[2019-03-23] MEDS ORDERED: ATROPINE SULFATE 0.1 MG/ML 10ML SYR IV PRN (20:11)
[2019-03-23] MEDS ORDERED: HYDROmorphone INJ 1 MG/ML SYRINGE IV PRN (20:11)
[2019-03-23] MEDS ORDERED: ePHEDrine sulfate 50 MG/ML AMP IV PRN (20:11)
--- NOTE | 2019-03-23 20:12 | Anesthesiology Consultation ---
Date of Service March 23, 2019 Assessment & Plan (1) Encounter for pre-operative examination: Chart Review Chart Review: Acceptable Risk for Surgery and Patient NOT seen in Pre Admission Testing Consults Requested none History Surgery Operation Date: 03/23/19 19:45 Proposed Procedures p Ureteral Stent Insertion/Removal - Amy Bridges MD Height/Weight Height: 5 ft 4 in Weight: 81.4 kg Allergies Allergy/AdvReac Type Severity Reaction Status Date / Time pregabalin Allergy Intermediate SEVERE Verified 03/23/19 17:01 EDEMA FROM KNEES TO FEET Medications Home Medications Medication Instructions Recorded Confirmed Last Taken aspirin 81 mg PO DAILY 09/01/18 03/23/19 03/22/19 atorvastatin 40 mg HS 09/01/18 03/23/19 03/22/19 bupropion HCl 150 mg PO BID 09/01/18 03/23/19 03/22/19 meloxicam 15 mg PO DAILY 09/01/18 03/23/19 03/22/19 nortriptyline 50 mg PO HS 09/01/18 03/23/19 03/22/19 omeprazole 20 mg PO DAILY 09/01/18 03/23/19 03/22/19 sumatriptan succinate [Imitrex] 50 mg PO UD PRN 09/01/18 03/23/19 Unknown topiramate 100 mg PO HS 09/01/18 03/23/19 03/22/19 trazodone 100 mg PO HS 09/01/18 03/23/19 03/22/19 verapamil 240 mg PO DAILY 09/01/18 03/23/19 03/22/19 losartan 25 mg PO DAILY 03/23/19 03/23/19 03/22/19 Past Medical History Medical History Anxiety (Chronic) Depression (Chronic) Migraine (Chronic) Esophageal stricture (Chronic) HTN (hypertension) (Chronic) Dyslipidemia (Chronic) Diabetes mellitus type 2, diet-controlled (Chronic) H/O: hysterectomy (Inactive) Past Family History Family History Brother Myocardial infarction, Onset Age: 46 Fatal Mother Parkinson's disease Father Multiple sclerosis Past Surgical History Surgical History H/O bladder repair surgery (Chronic) History of total left hip arthroplasty (Chronic) S/P TYLER (total abdominal hysterectomy) (Chronic) History of nasal surgery (Chronic) Previous back surgery (Chronic) History of cataract surgery (Chronic) H/O repair of left rotator cuff (Chronic) History of back surgery (Inactive) History of cataract surgery (Inactive) History of hip replacement (Inactive) left and right Social History Smoking Status: Never smoker Hx Alcohol Use: No Hx Substance Use: No Physical Exam Vital Signs Last Vital Signs Temp 39.4 C H 03/23/19 19:36 Pulse 75 03/23/19 19:07 Resp 22 03/23/19 19:07 BP 168/57 H 03/23/19 19:07 Pulse Ox 92 03/23/19 19:07 Testing Laboratory Results 03/23/19 17:57 03/23/19 17:57 Urine Color Yellow 03/23/19 15:45 Urine Appearance Cloudy (Clear) A 03/23/19 15:45 Urine pH 7.0 (4.5-7.5) 03/23/19 15:45 Ur Specific [place] 1.012 (1.000-1.030) 03/23/19 15:45 Urine Protein Negative (Negative) 03/23/19 15:45 Urine Glucose (UA) Negative (Negative) 03/23/19 15:45 Urine Ketones Negative (Negative) 03/23/19 15:45 Urine Nitrite Negative (Negative) 03/23/19 15:45 Ur Leukocyte Esterase 3+ (Negative) H 03/23/19 15:45 Urine WBC (Auto) >30 /hpf (0-5) H 03/23/19 15:45 Urine RBC (Auto) 0-4 /hpf (0-4) 03/23/19 15:45 U Hyaline Cast (Auto) 0 /lpf (0-5) 03/23/19 15:45 U Epithel Cells (Auto) 10-20 /lpf (0-5) H 03/23/19 15:45 Urine Bacteria (Auto) 1+ (Negative) H 03/23/19 15:45 Electrocardiogram Date: 09/05/18 Findings: + NSR @ (67) and + RBBB Chest X-Ray Date: 02/28/19 XR chest 2V routine CLINICAL HISTORY: fever ro pneumonia cough COMPARISON STUDY: 01/26/2019 FINDINGS: The bones soft tissues and hemidiaphragms are normal. The cardiomediastinal silhouette is normal. The lungs are clear. The pulmonary vasculature is normal. Minimal platelike atelectasis left base IMPRESSION: Negative chest. Minimal platelike atelectasis left base. The above report was generated using voice recognition software. It may contain grammatical, syntax or spelling errors. Electronically signed by: Papito Haskins M.D. 02/28/2019 10:40 PM Dictated: 02/28/19 2239 Transcribed: 02/28/19 2239
--- NOTE | 2019-03-23 20:39 | History & Physical Report ---
Date of Service March 23, 2019 Assessment & Plan (1) UTI (urinary tract infection): (2) Renal calculi: -Admit to MedSurg -Patient sent to the ED by referral PCP for evaluation of right flank pain, altered mental status -In the ED, CT ABD/pelvis showing 4 mm UPJ stone; UA suggest UTI -History of recurrent UTIs in the past, most recent urine culture 02/28 + for MSSA; patient initially treated with Cipro however changed to Bactrim once cultures resulted -Currently possible early sepsis; febrile 39.4, altered mental status; no leukocytosis, BP stable; check lactate -S/P Zosyn in the ED, will continue with -Urology notified by ED; patient going urgently to the OR tonight for cystoscopy (3) HTN (hypertension): -BP stable, continue verapamil and losartan (4) Diabetes mellitus type 2, diet-controlled: -NovoLog per protocol while hospitalized (5) Dyslipidemia: -Continue statin (6) Depression: (7) Anxiety: (8) Migraine: -Continue home meds (9) DVT prophylaxis: -SCDs due to invasive procedure this evening History of Present Illness Chief Complaint: Right flank pain Primary Care Provider: Feliciano Steen MD 73-year-old female who presents the ED for evaluation of right flank pain. Patient is somewhat confused and history is limited from her at this time. Family is the bedside. Patient was seen in the ED on 02/28 and diagnosed with UTI. She was discharged on Cipro however culture was positive for MSSA and patient was placed on Bactrim course which she completed. About 1 week ago, patient developed right flank pain. Family at the bedside reports that she is decompensated over the past couple of days. They report increasing confusion. Chills and rigors, however she did not take her temperature. She has had urinary frequency. Appetite has been poor however no nausea, vomiting, abdominal pain, diarrhea. No chest pain or shortness of breath. Denies lightheadedness, dizziness, diaphoresis, syncopal events. Patient was seen by her PCP and was sent to the ED for further evaluation. In the ED, CT ABD/pelvis is showing 4 mm left UPJ stone. Patient was initially afebrile however spiked a fever of 39.4. Labs are unremarkable. Patient was given IVF and IV Zosyn. Urology was contacted by the ED and patient will be going emergently to the OR tonight for cystoscopy. Allergies Allergy/AdvReac Type Severity Reaction Status Date / Time pregabalin Allergy Intermediate SEVERE Verified 03/23/19 17:01 EDEMA FROM KNEES TO FEET Home Medications Home Medications Medication Instructions Recorded Confirmed Type aspirin 81 mg PO DAILY 09/01/18 03/23/19 History atorvastatin 40 mg HS 09/01/18 03/23/19 History bupropion HCl 150 mg PO BID 09/01/18 03/23/19 History meloxicam 15 mg PO DAILY 09/01/18 03/23/19 History nortriptyline 50 mg PO HS 09/01/18 03/23/19 History omeprazole 20 mg PO DAILY 09/01/18 03/23/19 History sumatriptan succinate [Imitrex] 50 mg PO UD PRN 09/01/18 03/23/19 History topiramate 100 mg PO HS 09/01/18 03/23/19 History trazodone 100 mg PO HS 09/01/18 03/23/19 History verapamil 240 mg PO DAILY 09/01/18 03/23/19 History losartan 25 mg PO DAILY 03/23/19 03/23/19 History oxybutynin chloride 5 mg PO DAILY 03/23/19 03/23/19 History Past Med/Surg History Medical History Anxiety (Chronic) Depression (Chronic) Migraine (Chronic) Esophageal stricture (Chronic) HTN (hypertension) (Chronic) Dyslipidemia (Chronic) Diabetes mellitus type 2, diet-controlled (Chronic) Ureteral stone with hydronephrosis H/O: hysterectomy (Inactive) Surgical History H/O bladder repair surgery (Chronic) History of total left hip arthroplasty (Chronic) S/P TYLER (total abdominal hysterectomy) (Chronic) History of nasal surgery (Chronic) Previous back surgery (Chronic) History of cataract surgery (Chronic) H/O repair of left rotator cuff (Chronic) History of back surgery (Inactive) History of cataract surgery (Inactive) History of hip replacement (Inactive) left and right Family History Brother Myocardial infarction, Onset Age: 46 Fatal Mother Parkinson's disease Father Multiple sclerosis Social History Preferred Language: Filipino Communication Ability: Effective Airplane Cabin Attendant Required: No Beliefs That Will Affect Care: None Current Living Situation: Spouse Feels Safe at Home: Yes Smoking Status: Never smoker Hx Alcohol Use: No Hx Substance Use: No Review of Systems Review of Systems: ROS per HPI, all other systems reviewed and negative Physical Exam Physical Exam: Please refer to Dr. Smith's addendum for physical exam. Results & Data Vital Signs (Past 12 Hours) Vital Signs Temp Pulse Pulse Resp BP BP Pulse Ox 03/23/19 20:16 88 18 123/48 L 96 03/23/19 19:36 39.4 C H 03/23/19 19:07 75 22 168/57 H 92 03/23/19 17:56 84 30 H 128/104 H 94 03/23/19 17:41 36.8 C 03/23/19 15:39 36.7 C 77 18 123/63 99 Laboratory Results Short CBC 03/23/19 Range/Units 17:57 WBC 9.99 (4.8-10.8) K/uL Hgb 11.0 L (12.0-16.0) g/dL Hct 33.5 L (37-47) % Plt Count 158 (130-400) K/uL BMP 03/23/19 17:57 Sodium 138 Potassium 3.9 Chloride 106 Carbon Dioxide 22 BUN 15 Creatinine 1.20 Glucose 141 H Calcium 9.1 Liver Function 03/23/19 Range/Units 17:57 Total Bilirubin 0.6 (0.2-1) mg/dl AST 7 L (15-37) U/L ALT 11 L (12-78) U/L Alkaline Phosphatase 111 (45-117) U/L Albumin 3.2 L (3.4-5.0) gm/dl Urine 03/23/19 Range/Units 15:45 Urine Color Yellow Urine Appearance Cloudy A (Clear) Urine pH 7.0 (4.5-7.5) Ur Specific [place] 1.012 (1.000-1.030) Urine Protein Negative (Negative) Urine Glucose (UA) Negative (Negative) Diagnostic Findings CT ABD/PELVIS IMPRESSION: 1. 4 mm left ureteropelvic junction calculus results in moderate left hydronephrosis with mild perinephric infiltration. 2. Punctate left renal calculus. Code Status & VTE Plan VTE Prophylaxis Plan VTE Prophylaxis will be ordered: Yes Supervising Physician Co-Signing Physician Notes Patient is a 73-year-old female with history of hypertension, diet-controlled diabetes, depression, migraine, recurrent urinary tract infections and other problems presents with history of confusion, flank pain, increased urinary frequency, poor appetite, fever and chills which have been gradually worsening over 1 week. Patient denies any chest pain, shortness of breath, dizziness, nausea. Family reports she has been intermittently confused for the last 2 days. She was found to be febrile while in ED. CT abdomen showed 4 mm left ureteropelvic junction calculus, moderate left hydronephrosis with mild perinephric infiltration. Also noted punctate left renal calculus. Physical Exam: Vitals signs as noted above General Appearance:Moderately built and nourished, no apparent distress Head: normocephalic, Atraumatic Eyes: normal inspection, EOMI Neck: supple, Trachea midline Respiratory/Chest: Normal breath sounds, CTA Cardiovascular: S1, S2, + murmur Abdomen/GI:Soft, Non tender, CVA tender, Suprapubic tender, Bowel sounds present Extremities/Musculoskelatal:normal inspection, no edema Neurologic/Psych:AAOX3, grossly no focal neurological deficits Skin: normal color, warm Complicated urinary tract infection Obstructive uropathy secondary to renal calculi Possible sepsis Continue IV fluids, Zosyn, pain control Blood and urine cultures Urology consulted for cystoscopy and possible stent placement Start on flomax as able DM II Diet-controlled Check A1c Insulin sliding scale per protocol while hospitalized I personally reviewed the record. Patient is interviewed and examined at [facility]. Patient's care is coordinated with Ely Verdin [facility]. Please refer to the documentation above for details of patient's presentation and for discussion of other issues. (1) UTI (urinary tract infection) Hematuria presence: without hematuria Urinary tract infection type: site unspecified Qualified Code(s): N39.0 - Urinary tract infection, site not specified
--- NOTE | 2019-03-23 20:47 | Urology Consultation ---
Date of Consultation March 23, 2019 Assessment & Plan (1) HTN (hypertension): (2) Diabetes mellitus type 2, diet-controlled: (3) Renal calculi: has 4mm left upj stone with hydro and sepsis to OR now for cysto left stent in hospital admission for about 3 days getting zosyn in the ER, covers her prior urine bacteria Present on Admission?: Yes History of Present Illness Reason for Consultation: sepsis with left ureteral stone Requesting Physician: Ely Verdin PA-C History of Present Illness I am asked by Ely Verdin PA-C to evaluate and treat patient for left ureteral stone. She has had pain and weakness today. She has abdominal pain but no emesis. SHe has normal white count. ct shows left upj 4mm stone with hydro and some stranding. she spiked a high fever in ER a bit ago. She is getting zosyn. She has had frequent utis with a prior episode of sepsis in Aug 2018. Allergies Allergy/AdvReac Type Severity Reaction Status Date / Time pregabalin Allergy Intermediate SEVERE Verified 03/23/19 17:01 EDEMA FROM KNEES TO FEET Home Medications Home Medications Medication Instructions Recorded Confirmed Type aspirin 81 mg PO DAILY 09/01/18 03/23/19 History atorvastatin 40 mg HS 09/01/18 03/23/19 History bupropion HCl 150 mg PO BID 09/01/18 03/23/19 History meloxicam 15 mg PO DAILY 09/01/18 03/23/19 History nortriptyline 50 mg PO HS 09/01/18 03/23/19 History omeprazole 20 mg PO DAILY 09/01/18 03/23/19 History sumatriptan succinate [Imitrex] 50 mg PO UD PRN 09/01/18 03/23/19 History topiramate 100 mg PO HS 09/01/18 03/23/19 History trazodone 100 mg PO HS 09/01/18 03/23/19 History verapamil 240 mg PO DAILY 09/01/18 03/23/19 History losartan 25 mg PO DAILY 03/23/19 03/23/19 History oxybutynin chloride 5 mg PO DAILY 03/23/19 03/23/19 History Patient History Medical History Anxiety (Chronic) Depression (Chronic) Migraine (Chronic) Esophageal stricture (Chronic) HTN (hypertension) (Chronic) Dyslipidemia (Chronic) Diabetes mellitus type 2, diet-controlled (Chronic) Ureteral stone with hydronephrosis H/O: hysterectomy (Inactive) Surgical History H/O bladder repair surgery (Chronic) History of total left hip arthroplasty (Chronic) S/P TYLER (total abdominal hysterectomy) (Chronic) History of nasal surgery (Chronic) Previous back surgery (Chronic) History of cataract surgery (Chronic) H/O repair of left rotator cuff (Chronic) History of back surgery (Inactive) History of cataract surgery (Inactive) History of hip replacement (Inactive) left and right Family History Brother Myocardial infarction, Onset Age: 46 Fatal Mother Parkinson's disease Father Multiple sclerosis Social History Preferred Language: Macedonian Communication Ability: Effective Planning Associate Required: No Beliefs That Will Affect Care: None Current Living Situation: Spouse Feels Safe at Home: Yes Smoking Status: Never smoker Hx Alcohol Use: No Hx Substance Use: No Review of Systems Review of Systems: PMH- HTN, cholesterol, DM, depression and anxiety, migraine Soc- retired, no tobacco ROS- + fever sand chills, nausea present no emesis, + confusion, + fatigue, bowels ok, appetite fair, no seizures, Physical Exam Physical Exam: tired appearing, flushed, lying on her right side. answers questions appropriately chest- no rales or wheezes, shallow breaths, no dyspnea heart- regular rate and rhythm ext- no edema Results & Data Vital Signs (Past 12 Hours) Vital Signs Temp Pulse Pulse Resp BP BP Pulse Ox 03/23/19 20:16 88 18 123/48 L 96 03/23/19 19:36 39.4 C H 03/23/19 19:07 75 22 168/57 H 92 03/23/19 17:56 84 30 H 128/104 H 94 03/23/19 17:41 36.8 C 03/23/19 15:39 36.7 C 77 18 123/63 99
[2019-03-23] MEDS ORDERED: IOTHALAMATE MEGLUMINE II 17.2% 250 ML VIAL ONE (20:55)
[2019-03-23] MEDS ORDERED: fentaNYL citrate 100 MCG/2 ML VIAL ONE (21:12)
[2019-03-23] MEDS ORDERED: LIDOCAINE HCL 2% 2 ML VIAL/AMP(20MG/ML) INFIL ONE (21:13)
[2019-03-23] MEDS ORDERED: PROPOFOL IV EMULSION 10 MG/ML 20 ML VIAL IV ONE (21:13)
--- NOTE | 2019-03-23 21:26 | Operative Report ---
Post Operative Report Pre & Post Diagnosis Operation Date: 03/23/19 19:45 Pre-Op Diagnosis: Left ureteral stone, with sepsis Post-Op Diagnosis: Left ureteral stone, with sepsis Procedure Operation Date: 03/23/19 19:45 Actual Procedures p Cystoscopy, Left Ureteral Stent Insertion(Left) - Amy Bridges MD Surgeon Amy Bridges MD Fur Dresser none Estimated Blood Loss 0 Findings Consistent with Post-Op Diagnosis radio-lucent stone left upper ureter Fluids 200 Specimens urine for culture Drains 6 fr 24 centimeter double j stent Anesthesia Type MAC Complications none Disposition Accompanied Patient To Recovery: Yes Disposition: Surgical ICU Indications fever with obstructing left ureteral stone Description of Procedure Patient was sedated and placed in lithotomy position. Her genitals were prepped and draped in sterile fashion. Time out held with team. I placed a 21 fr rigid cystoscope to bladder. The urine is very cloudy with white debris. the bladder is mildly inflamed. I sent a urine for culture. The urethra is unremarkable. The UOs are round lateral position. I placed a road runner wire up left ureter and placed a 24 centimeter 6 Fr double J stent easily. There is brisk cloudy efflux after placement. I left bladder empty and concluded case. SHe transferred to recovery under my escort, in stable condition. Plan: inpatient stay for sepsis zosyn until blood and urine culture returned ASA 2e clean contaminated case 8 seconds fluoro zosyn antibiotic supervisor telephone information I attest to the content of the Intraoperative Record and any orders documented therein. Any exceptions are noted below.
--- NOTE | 2019-03-23 21:29 | Anesthesiology Progress Note ---
Date of Service March 23, 2019 Anesthesia Post Procedure Vital Signs Vital Signs: Temp Pulse Pulse Resp BP BP Pulse Ox 03/23/19 20:16 88 18 123/48 L 96 03/23/19 19:36 39.4 C H 03/23/19 19:07 75 22 168/57 H 92 03/23/19 17:56 84 30 H 128/104 H 94 03/23/19 17:41 36.8 C 03/23/19 15:39 36.7 C 77 18 123/63 99 Pain Intensity Flank: Pain Intensity: 0 Transfer of Care Handoff Completed per policy Notes Mental Status: alert / awake / arousable Patient Amnestic to Procedure: Yes Nausea / Vomiting: adequately controlled Pain: adequately controlled Airway Patency, RR, SpO2: stable & adequate BP & HR: stable & adequate Hydration State: stable & adequate Anesthetic Complications: no major complications apparent and Pt Satisfied with anesthetic care Notes: The patient is awake and her vital signs are stable in recovery.
[2019-03-23] MEDS ORDERED: DEXTROSE 50% 50 ML SYRINGE IV PRN (22:03)
[2019-03-23] MEDS ORDERED: GLUCOSE 40% GEL 15 GM TUBE PO PRN (22:03)
[2019-03-23] MEDS ORDERED: CARBOHYDRATES FOR HYPOGLYCEMIA PO PRN (22:03)
[2019-03-23] MEDS ORDERED: MoRPHine SULFATE 2 MG/ML CARP IV PRN (22:03)
[2019-03-23] MEDS ORDERED: GLUCAGON FOR INJ 1 MG VIAL SQ PRN (22:03)
[2019-03-23] MEDS ORDERED: GLUCOSE 10 TABS/TUBE PO PRN (22:03)
[2019-03-23] MEDS: SODIUM CHLORIDE 0.9% 1000ML 1,000 ML IV SCH (22:04)
[2019-03-23] MEDS: TOPIRAMATE 100 MG TAB PO SCH (22:41)
[2019-03-23] MEDS: ATORVASTATIN 40 MG TAB PO SCH (22:41)
[2019-03-23] MEDS: INSULIN ASPART 100 UNITS/ML 3 ML PEN SC SCH (22:42)
--- NOTE | 2019-03-23 22:57 | Emergency Department Note ---
Entered by Noelle Cunha acting as a scribe for History of Present Illness General Chief complaint: Illness Stated complaint: POSSIBLE SEPSIS, REF BY [facility] Source: patient History of Present Illness Provider complaint: Urinary symptoms Onset (ago): hour(s) Location: back Pain Consistency: + constant Maximum Pain Intensity: 5 Quality: + constant Associated symptoms: + cough, + fever/chills (fever) and + other (Positive: urinary frequency, lower back soreness, Negative: urinary burning, runny nose, congestion); no nausea/vomiting (vomiting) The patient is a 73 year old female with past medical history of anemia, sepsis, pneumonia, DVT prophylaxis, UTI, who presents to the ED with complaints of constant urinary symptoms that started today. The patient reports she has urination frequency but no burning. She notes she has had three similar episodes in the past. The patient states she has lower back soreness started a week ago w hich is worsened with movement. She reports the back soreness has been consistent with past episodes. The patient denies the pain radiating down her legs. She reports she had a fever this morning at the doctors office. She additionally notes she was referred here because the doctor is concerned about pyelonephritis or sepsis. The patient denies vomiting, congestion, or runny nose. She notes she has a cough. Home Medications Home Medications Medication Instructions Recorded Confirmed Type aspirin 81 mg PO DAILY 09/01/18 03/23/19 History atorvastatin 40 mg HS 09/01/18 03/23/19 History bupropion HCl 150 mg PO BID 09/01/18 03/23/19 History meloxicam 15 mg PO DAILY 09/01/18 03/23/19 History nortriptyline 50 mg PO HS 09/01/18 03/23/19 History omeprazole 20 mg PO DAILY 09/01/18 03/23/19 History sumatriptan succinate [Imitrex] 50 mg PO UD PRN 09/01/18 03/23/19 History topiramate 100 mg PO HS 09/01/18 03/23/19 History trazodone 100 mg PO HS 09/01/18 03/23/19 History verapamil 240 mg PO DAILY 09/01/18 03/23/19 History losartan 25 mg PO DAILY 03/23/19 03/23/19 History oxybutynin chloride 5 mg PO DAILY 03/23/19 03/23/19 History Allergies Allergy/AdvReac Type Severity Reaction Status Date / Time pregabalin Allergy Intermediate SEVERE Verified 03/23/19 17:01 EDEMA FROM KNEES TO FEET Past Med/Surg History Medical History Anxiety (Chronic) Depression (Chronic) Migraine (Chronic) Esophageal stricture (Chronic) HTN (hypertension) (Chronic) Dyslipidemia (Chronic) Diabetes mellitus type 2, diet-controlled (Chronic) Ureteral stone with hydronephrosis H/O: hysterectomy (Inactive) Surgical History H/O bladder repair surgery (Chronic) History of total left hip arthroplasty (Chronic) S/P TYLER (total abdominal hysterectomy) (Chronic) History of nasal surgery (Chronic) Previous back surgery (Chronic) History of cataract surgery (Chronic) H/O repair of left rotator cuff (Chronic) History of back surgery (Inactive) History of cataract surgery (Inactive) History of hip replacement (Inactive) left and right Family History Brother Myocardial infarction, Onset Age: 46 Fatal Mother Parkinson's disease Father Multiple sclerosis Social History Preferred Language: Mohawk Communication Ability: Effective Physician Pediatrician Required: No Beliefs That Will Affect Care: None Current Living Situation: Spouse Current Living Situation Comment: Home with spouse Other Information That Helps Us Care for You: No Feels Safe at Home: Yes Safety Concerns: Feels Safe At This Time Smoking Status: Never smoker Do You Dip or Chew Tobacco: No ; Second Hand Exposure: No ; Tobacco Cessation Education Requested by Patient: No Hx Alcohol Use: No Hx Substance Use: No Review of Systems See HPI for pertinent positives & negatives. and A total of 10 systems reviewed and were otherwise negative Physical Exam Vital Signs Vital Signs - 24 hr 03/23/19 15:39 03/23/19 17:41 03/23/19 17:56 Temperature 36.7 C 36.8 C Temperature Source Oral Oral Sepsis Recent Fever Within 48 Hours No Sepsis New/Unexplained Change in Mental Status No Sepsis Action Taken by Nursing No Action Required Pulse Rate 77 Pulse Rate [Finger] 84 Pulse Rhythm Regular Pulse Strength Normal Respiratory Rate 18 30 H Respiratory Effort / Characteristics Non-Labored Respiratory Depth Normal Respiratory Pattern Regular Blood Pressure 123/63 Blood Pressure [Right Arm] 128/104 H Blood Pressure Mean 83 Blood Pressure Mean [Right Arm] 112 Pulse Oximetry 99 94 Oxygen Delivery Method Room Air Room Air 03/23/19 19:07 03/23/19 19:36 03/23/19 20:16 Temperature 39.4 C H Temperature Source Oral Sepsis Recent Fever Within 48 Hours Sepsis New/Unexplained Change in Mental Status Sepsis Action Taken by Nursing Pulse Rate Pulse Rate [Finger] 75 88 Pulse Rhythm Pulse Strength Respiratory Rate 22 18 Respiratory Effort / Characteristics Respiratory Depth Respiratory Pattern Blood Pressure Blood Pressure [Right Arm] 168/57 H 123/48 L Blood Pressure Mean Blood Pressure Mean [Right Arm] 94 73 Pulse Oximetry 92 96 Oxygen Delivery Method Room Air Room Air Constitutional: Vital signs reviewed. Eyes: Pupils are equal round reactive to light. Conjunctiva are noninjected. ENT: Pharynx is clear without erythema or exudate. Mucous membranes are moist. Neck supple without meningeal signs. Respiratory: Clear to auscultation bilaterally. Breath sounds are equal bila terally. Cardiovascular: Regular rate and rhythm. No rubs or gallops. GI: Soft, nondistended and nontender. Bowel sounds are present. Musculoskeletal: No peripheral edema. No lower extremity tenderness. No CVA tenderness. Integumentary: No cyanosis. Neurological: The patient is awake and alert. No focal deficits. Psychiatric: Normal affect. Course 1636: The patient was evaluated in room B9. A complete history and physical exam was performed. 1914: I checked on the patient and updated her on test results. The patient sees Dr. Bridges. I put a page out. 1919: I discussed the patient's case with Dr. Bridges, Urology. She will see the patient in the morning and requested that she needs to be put on clear liquids in case she needs to go to OR. 1932: I discussed the patient's case with Dr. Larson, [facility] Hospitalist. 1949: The patient spiked a fever and Dr. Bridges informed she is taking her to the OR. Consultations Consultation #1: I discussed the patient's case with Dr. Bridges, Urology. She will see the patient in the morning and requested that she needs to be put on clear liquids in case she needs to go to OR. Time: 19:20 Consultation #2: I discussed the patient's case with Dr. Larson, [facility] Hospitalist. Time: 19:33 Administered Medications Atorvastatin Calcium (Lipitor) 40 mg PO HS DELORIS Stop: 04/22/19 22:02 Last Admin: 03/23/19 22:41 Dose: 40 mg Documented by: [id number] Sodium Chloride (Nss 1000ml) 1,000 mls @ 125 mls/hr IV .Q8H DELORIS Stop: 04/22/19 20:14 Last Admin: 03/23/19 22:04 Dose: 125 mls/hr Documented by: [id number] Insulin Aspart (Novolog Flexpen) 0 units SC ACHS DELORIS Stop: 04/22/19 22:02 Last Admin: 03/23/19 22:42 Dose: Not Given Documented by: [id number] Cosigned by: [id number] Topiramate (Topamax) 100 mg PO HS DELORIS Stop: 04/22/19 22:02 Last Admin: 03/23/19 22:41 Dose: 100 mg Documented by: [id number] Discontinued Medications Acetaminophen (Ofirmev) Confirm Administered Dose 1,000 mg IV .STK-MED ONE Stop: 03/23/19 19:44 Last Admin: 03/23/19 19:45 Dose: 650 mg Documented by: [id number] Sodium Chloride (Nss 1000ml) 500 mls @ 999 mls/hr IV .Q31M ONE Stop: 03/23/19 19:07 Last Infusion: 03/23/19 19:33 Dose: 0 mls/hr Documented by: [id number] Admin: 03/23/19 19:02 Dose: 999 mls/hr Documented by: [id number] Piperacillin Sod/Tazobactam Sod (Zosyn) 4.5 gm in 120 mls @ 240 mls/hr IV NOW ONE Stop: 03/23/19 19:48 Last Infusion: 03/23/19 22:20 Dose: 0 mls/hr Documented by: [id number] Infusion: 03/23/19 20:35 Dose: 200 mls/hr Documented by: [id number] Infusion: 03/23/19 19:44 Dose: 0 mls/hr Documented by: [id number] Admin: 03/23/19 19:32 Dose: 240 mls/hr Documented by: [id number] Iothalamate Meglumine (Cysto-Conray Ii) Confirm Administered Dose 250 ml .ROUTE .STK-MED ONE Stop: 03/23/19 20:56 Last Admin: 03/23/19 22:20 Dose: Not Given Documented by: [id number] Trimethoprim/Sulfamethoxazole (Septra Ds 800/160mg Tab) 1 tab PO NOW ONE Stop: 03/23/19 18:38 Last Admin: 03/23/19 19:02 Dose: 1 tab Documented by: [id number] Medical Decision Making Differential Diagnosis Differential Diagnosis: UTI, pyelonephritis, strain, renal colic, pancreatitis Medical Records Attestation: I reviewed the patient's medical records. The patient was called by the pharmacist on February 08 for MSSA in the urine culture. She was prescribed 5 days of Bactrim and was told to stop the Cipro she was originally prescribed. She was seen in the ED on the for UTI symptoms. Home Medications Current Medication List: was personally reviewed by me Laboratory Data Attestation: I reviewed the patient's lab results. Result diagrams: 03/23/19 17:57 03/23/19 17:57 Lab Results 03/23/19 03/23/19 03/23/19 Range/Units 15:45 17:57 17:57 WBC 9.99 (4.8-10.8) K/uL RBC 3.76 L (4.2-5.4) M/uL Hgb 11.0 L (12.0-16.0) g/dL Hct 33.5 L (37-47) % MCV 89.1 (80-100) fL MCH 29.3 (25-34) pg MCHC 32.8 (32-36) g/dL RDW Std Deviation 43.6 (36.4-46.3) fL RDW Coeff of Cristel 13.3 (11.5-14.5) % Plt Count 158 (130-400) K/uL MPV 9.8 (7.4-10.4) fL Immature Gran % (Auto) 0.2 % Neut % (Auto) 74.8 % Lymph % (Auto) 12.5 % Hardin % (Auto) 12.0 % Eos % (Auto) 0.3 % Baso % (Auto) 0.2 % Immature Gran # (Auto) 0.02 (0.00-0.02) K/uL Neut # (Auto) 7.47 H (1.4-6.5) K/uL Lymph # (Auto) 1.25 (1.2-3.4) K/uL Hardin # (Auto) 1.20 H (0.11-0.59) K/uL Eos # (Auto) 0.03 (0-0.5) K/uL Baso # (Auto) 0.02 (0-0.2) K/uL Sodium 138 (136-145) mmol/L Potassium 3.9 (3.5-5.1) mmol/L Chloride 106 (98-107) mmol/L Carbon Dioxide 22 (21-32) mmol/L Anion Gap 10.0 (3-11) BUN 15 (7-18) mg/dl Creatinine 1.20 (0.6-1.2) mg/dl Est Cr Clr Drug Dosing 43.1 ml/min Est GFR ( Amer) 51.9 Est GFR (Non-Af Amer) 44.8 BUN/Creatinine Ratio 12.7 (10-20) Glucose 141 H (70-99) mg/dl Lactate (0.4-2.0) mmol/L Calcium 9.1 (8.5-10.1) mg/dl Total Bilirubin 0.6 (0.2-1) mg/dl AST 7 L (15-37) U/L ALT 11 L (12-78) U/L Alkaline Phosphatase 111 (45-117) U/L Total Protein 7.4 (6.4-8.2) gm/dl Albumin 3.2 L (3.4-5.0) gm/dl Globulin 4.2 H (2.5-4.0) gm/dl Albumin/Globulin Ratio 0.8 L (0.9-2) Lipase 30 L (73-393) U/L Urine Color Yellow Urine Appearance Cloudy A (Clear) Urine pH 7.0 (4.5-7.5) Ur Specific [place] 1.012 (1.000-1.030) Urine Protein Negative (Negative) Urine Glucose (UA) Negative (Negative) Urine Ketones Negative (Negative) Urine Blood 1+ H (Negative) Urine Nitrite Negative (Negative) Urine Bilirubin Negative (Negative) Urine Urobilinogen Negative (Negative) Ur Leukocyte Esterase 3+ H (Negative) Urine WBC (Auto) >30 H (0-5) /hpf Urine RBC (Auto) 0-4 (0-4) /hpf U Hyaline Cast (Auto) 0 (0-5) /lpf U Epithel Cells (Auto) 10-20 H (0-5) /lpf Urine Bacteria (Auto) 1+ H (Negative) 03/23/19 Range/Units 20:34 WBC (4.8-10.8) K/uL RBC (4.2-5.4) M/uL Hgb (12.0-16.0) g/dL Hct (37-47) % MCV (80-100) fL MCH (25-34) pg MCHC (32-36) g/dL RDW Std Deviation (36.4-46.3) fL RDW Coeff of Cristel (11.5-14.5) % Plt Count (130-400) K/uL MPV (7.4-10.4) fL Immature Gran % (Auto) % Neut % (Auto) % Lymph % (Auto) % Hardin % (Auto) % Eos % (Auto) % Baso % (Auto) % Immature Gran # (Auto) (0.00-0.02) K/uL Neut # (Auto) (1.4-6.5) K/uL Lymph # (Auto) (1.2-3.4) K/uL Hardin # (Auto) (0.11-0.59) K/uL Eos # (Auto) (0-0.5) K/uL Baso # (Auto) (0-0.2) K/uL Sodium (136-145) mmol/L Potassium (3.5-5.1) mmol/L Chloride (98-107) mmol/L Carbon Dioxide (21-32) mmol/L Anion Gap (3-11) BUN (7-18) mg/dl Creatinine (0.6-1.2) mg/dl Est Cr Clr Drug Dosing ml/min Est GFR ( Amer) Est GFR (Non-Af Amer) BUN/Creatinine Ratio (10-20) Glucose (70-99) mg/dl Lactate 1.2 (0.4-2.0) mmol/L Calcium (8.5-10.1) mg/dl Total Bilirubin (0.2-1) mg/dl AST (15-37) U/L ALT (12-78) U/L Alkaline Phosphatase (45-117) U/L Total Protein (6.4-8.2) gm/dl Albumin (3.4-5.0) gm/dl Globulin (2.5-4.0) gm/dl Albumin/Globulin Ratio (0.9-2) Lipase (73-393) U/L Urine Color Urine Appearance (Clear) Urine pH (4.5-7.5) Ur Specific [place] (1.000-1.030) Urine Protein (Negative) Urine Glucose (UA) (Negative) Urine Ketones (Negative) Urine Blood (Negative) Urine Nitrite (Negative) Urine Bilirubin (Negative) Urine Urobilinogen (Negative) Ur Leukocyte Esterase (Negative) Urine WBC (Auto) (0-5) /hpf Urine RBC (Auto) (0-4) /hpf U Hyaline Cast (Auto) (0-5) /lpf U Epithel Cells (Auto) (0-5) /lpf Urine Bacteria (Auto) (Negative) Imaging Data Radiologist's Impression: Radiology results as stated below per my review and the radiologist's interpretation: CT OF THE ABDOMEN AND PELVIS WITHOUT CONTRAST CLINICAL HISTORY: Right flank pain. Evaluate for stone. COMPARISON STUDY: CT of the abdomen and pelvis September 03, 2018. TECHNIQUE: Axial images of the abdomen and pelvis were obtained without IV contrast. Images were reviewed in the axial, sagittal, and coronal planes. Automated exposure control was utilized for the study. A dose lowering technique was utilized adhering to the principles of ALARA. FINDINGS: Incidental note is made of bilateral total hip arthroplasties and postoperative findings within the lumbar spine. A 4 mm left ureteropelvic junction calculus results in moderate left hydronephrosis. There is a punctate left renal calculus. There is no right hydronephrosis. Images of the pelvis are degraded by streak artifact from bilateral hip arthroplasties. Unenhanced images of the liver, spleen, adrenal glands are unremarkable. Glandular atrophy of the pancreas is noted. There is no evidence for a bowel obstruction. No pneumatosis, free air or portal venous gas is noted. Borderline splenomegaly is unchanged. Trace fluid within the pelvis is noted. Colonic diverticulosis is present without evidence for acute diverticulitis. IMPRESSION: 1. 4 mm left ureteropelvic junction calculus results in moderate left hydronephrosis with mild perinephric infiltration. 2. Punctate left renal calculus. Electronically signed by: Emanuel Lacey M.D. 03/23/2019 7:11 PM Blood Pressure Blood Pressure Findings: Elevated blood pressure Blood Pressure Disposition: further management by hospitalist JOSE Hunter I did evaluate the patient as noted above. The patient is presenting with urinary symptoms with pain in her flank. She has had 2 recent UTIs treated with antibiotics. IV access was established. I did treat her with normal saline IV. I did order a urine analysis. She does have evidence of infection. I did treat her with Bactrim based on her prior culture. I did order and review the patient's blood work as noted in the electronic medical record. Her white count is not elevated. She has stable anemia 1.2. I did order a CT of the abdomen and pelvis. I did review the images myself as well as the radiology report as described above. She does have a left 4 mm UPJ stone with hydronephrosis and perinephric stranding. I did go ahead and treat her with Zosyn IV. I did discuss the test results with her and her family. I did recommend hospitalization for further care and evaluation. I did speak to Dr. Bridges of urology who recommends she be placed on clear liquids in case she needed an em ergent stent if she spiked a fever. I did discuss the case with the hospitalist and outpatient case manager. She then developed a fever and she was given Tylenol IV. Dr. Bridges was called back and the patient was taken to the OR for stent placement. Impression & Plan UTI (urinary tract infection), Anemia, Uropathy, obstructive, Renal colic Discharge Plan Visit Data *Final* Discharge Date/Time: 03/23/19 20:40 Chief Complaint: Illness Stated Complaint: POSSIBLE SEPSIS, REF BY [facility] ED Provider: Curtis Valdes Discharge Problem: UTI (urinary tract infection), Anemia, Uropathy, obstructive, Renal colic Patient Disposition: Admitted As Inpatient Discharge Instructions Interventions: ED Discharge Assessment Last Done: 03/23/19 20:40 Discharge Problem: UTI (urinary tract infection) Qualifiers: Urinary tract infection type: site unspecified Hematuria presence: without hematuria Qualified Code(s): N39.0 - Urinary tract infection, site not specified The scribe's documentation has been prepared under my direction and personally reviewed by me in its entirety. I confirm that the note above accurately reflects all work, treatment, procedures, and medical decision making performed by me.
[2019-03-23] MEDS ORDERED: PIPERACILLIN/TAZOBACTAM 3.375 GM in DEXTROSE 5% 100 ML IV ONE (23:00)
[2019-03-24] MEDS: ACETAMINOPHEN 325 MG TAB PO PRN ×2 (01:18→19:28)
[2019-03-24] MEDS ORDERED: KETOROLAC TROMETHAMINE 15 MG/ML VIAL IV ONE ×2 (02:46→21:00)
[2019-03-24] MEDS ORDERED: PIPERACILLIN/TAZOBACTAM 3.375 GM in DEXTROSE 5% 100 ML IV SCH (04:00)
[2019-03-24] MEDS: SODIUM CHLORIDE 0.9% 1000ML 1,000 ML IV SCH ×3 (06:20→21:12)
[2019-03-24 07:11] LABS: Hematocrit (blood only) 29.2 % (37-47); Hemoglobin 9.3 g/dL (12.0-16.0); Mean Corpuscular Hemoglobin 28.3 pg (25-34); Mean Corpuscular Hgb Conc 31.8 g/dL (32-36); Mean Corpuscular Volume 88.8 fL (80-100); Mean Platelet Volume 9.7 fL (7.4-10.4); Platelet Count 134 K/uL (130-400); RDW Coefficient of Variation 13.3 % (11.5-14.5); RDW Standard Deviation 43.6 fL (36.4-46.3); Red Blood Count 3.29 M/uL (4.2-5.4); White Blood Count 9.62 K/uL (4.8-10.8)
[2019-03-24 07:35] LABS: BUN Creatinine Ratio 11.5 (10-20); Creatinine Clr Calc Pharmacy 45.4 ml/min; Est GFR (African American) 55.2; Est GFR (Non-African American) 47.7; Potassium 3.4 mmol/L (3.5-5.1)
[2019-03-24] MEDS: VERAPAMIL HCL 240 MG TABCR PO SCH (08:05)
[2019-03-24] MEDS: OXYBUTYNIN CHLORIDE 5 MG TAB PO SCH (08:06)
[2019-03-24] MEDS: ASPIRIN 81 MG ECTAB PO SCH (08:06)
[2019-03-24] MEDS: LOSARTAN POTASSIUM 25 MG TAB PO SCH (08:06)
[2019-03-24] MEDS: BuPROPion SR 150 MG TABCR PO SCH ×2 (08:06→21:17)
[2019-03-24 08:28] LABS: Estimated Average Glucose 140 mg/dl; Hemoglobin A1C 6.5 % (4.5-5.6)
--- NOTE | 2019-03-24 09:23 | Fluoroscopy Report ---
FL KUB CLINICAL HISTORY: 73 years-old Female presenting with LT CYSTO STENT. TECHNIQUE: 2 fluoroscopic image(s) recorded as part of an intraoperative procedure. COMPARISON: CT from earlier today. FINDINGS/IMPRESSION: A guidewire was advanced into the left renal pelvis. Subsequently, a left ureteral stent was placed. Partially visualized lumbar posterior fusion hardware and laminectomy defects. Please see surgical report for further details. Fluoroscopy dosage (mGy): 1.65. Fluoroscopy time: 8.5 seconds. Number or time of high level fluoroscopy (HLF), digital spot, or digital subtraction images: 0. Electronically signed by: Jose Donohue M.D. 03/24/2019 9:22 AM
--- NOTE | 2019-03-24 10:08 | Anesthesiology Progress Note ---
Date of Service March 24, 2019 Anesthesia Post Procedure Vital Signs Vital Signs: Temp Pulse Pulse Pulse Pulse Resp BP 03/24/19 07:27 37.0 C 58 L 17 03/24/19 04:40 37.2 C 03/24/19 02:51 39.6 C H 85 21 03/24/19 02:37 38.8 C H 03/24/19 01:15 37.7 C H 03/24/19 01:00 37.8 C H 69 19 03/24/19 00:00 37.0 C 69 17 03/23/19 23:00 37.1 C 68 16 03/23/19 22:26 37.2 C 67 16 03/23/19 22:06 37.5 C 16 03/23/19 21:45 36.6 C 72 16 03/23/19 21:35 72 16 03/23/19 21:25 36.5 C 78 16 03/23/19 20:16 88 18 03/23/19 19:36 39.4 C H 03/23/19 19:07 75 22 03/23/19 17:56 84 30 H 03/23/19 17:41 36.8 C 03/23/19 15:39 36.7 C 77 18 123/63 BP BP Pulse Ox 03/24/19 07:27 121/57 L 98 03/24/19 04:40 03/24/19 02:51 129/71 94 03/24/19 02:37 03/24/19 01:15 03/24/19 01:00 147/55 H 96 03/24/19 00:00 118/68 96 03/23/19 23:00 106/58 L 95 03/23/19 22:26 110/64 96 03/23/19 22:06 108/55 L 94 03/23/19 21:45 117/50 L 97 03/23/19 21:35 121/51 L 97 03/23/19 21:25 122/40 L 94 03/23/19 20:16 123/48 L 96 03/23/19 19:36 03/23/19 19:07 168/57 H 92 03/23/19 17:56 128/104 H 94 03/23/19 17:41 03/23/19 15:39 99 Pain Intensity Flank: Pain Intensity: 0 Notes Mental Status: alert / awake / arousable and participated in evaluation Nausea / Vomiting: adequately controlled Pain: adequately controlled Airway Patency, RR, SpO2: stable & adequate BP & HR: stable & adequate Hydration State: stable & adequate
[2019-03-24] MEDS: INSULIN ASPART 100 UNITS/ML 3 ML PEN SC SCH ×4 (10:21→21:20)
[2019-03-24] MEDS: cefTRIAXone SODIUM 2,000 MG in DEXTROSE 5% 50 ML IV SCH (11:25)
--- NOTE | 2019-03-24 18:13 | Hospitalist Progress Note ---
Date of Service March 24, 2019 Assessment & Plan (1) UTI (urinary tract infection): Completed UTI in the setting of obstructed left ureter pelvic renal stone with left hydro-nephrosis Continue empiric antibiotic with IV Zosyn Follow cultures (2) Renal calculi: Presented with flank pain, fever CT abdomen pelvis noncontrast showed 1. 4 mm left ureteropelvic junction calculus resulting moderate left hydronephrosis with mild perinephric infiltration Appreciate input from urology Status post left ureteric stent placement Patient reports symptomatic improvement of left flank pain, Experiencing a burning sensation patient which is common after stent placement No IV antibiotic as patient continues to spike temperature intermittently (3) HTN (hypertension): -BP stable, continue verapamil and losartan (4) Diabetes mellitus type 2, diet-controlled: -NovoLog per protocol while hospitalized (5) Dyslipidemia: -Continue statin (6) Depression: (7) Anxiety: (8) Migraine: -Continue home meds (9) DVT prophylaxis: -SCD and teds, patient is encouraged to ambulate Disposition: Expected to be discharged home in next 24 to 48 hours if remains afebrile Subjective Been spiking temperature, Still experiencing left-sided flank pain, intermittent hematuria No nausea vomiting Feels tired and wiped out Physical Exam Constitutional: + ill appearing Eyes: PERRL, conjunctivae normal, anicteric sclerae ENMT: external ear and nose normal, oropharynx normal Neck: trachea midline, no thyromegaly Respiratory: normal respiratory effort, lungs clear to auscultation Cardiovascular: RRR, no murmur, no edema Gastrointestinal (Abdomen): Percussion/Palpation: + abdomen tender Left CVA tenderness Musculoskeletal: no cyanosis or clubbing, extremities motor strength 5/5 Skin: no rashes, warm and dry Neurologic: PERRL, EOMI, accommodation nl, no face palsy, no dysarthria Psychiatric: A+Ox3, euthymic affect Orientation: alert and oriented x 3 Speech: normal rate/rhythm/volume of speech Results & Data Vital Signs (Past 12 Hours) Vital Signs Temp Pulse Resp BP Pulse Ox 03/24/19 15:58 37.2 C 57 L 18 109/47 L 96 03/24/19 07:27 37.0 C 58 L 17 121/57 L 98 (1) UTI (urinary tract infection) Hematuria presence: without hematuria Urinary tract infection type: site unspecified Qualified Code(s): N39.0 - Urinary tract infection, site not specified
[2019-03-24] MEDS ORDERED: KETOROLAC 30 MG/ML VIAL IV ONE (20:35)
[2019-03-24] MEDS: ATORVASTATIN 40 MG TAB PO SCH (21:17)
[2019-03-24] MEDS: TRAZODONE HCL 100 MG TAB PO SCH (21:17)
[2019-03-24] MEDS: TOPIRAMATE 100 MG TAB PO SCH (21:17)
[2019-03-24] MEDS: NORTRIPTYLINE HCL 25 MG CAP PO SCH (21:17)
[2019-03-25] MEDS: SODIUM CHLORIDE 0.9% 1000ML 1,000 ML IV SCH (04:56)
[2019-03-25] MEDS: ASPIRIN 81 MG ECTAB PO SCH (08:29)
[2019-03-25] MEDS: BuPROPion SR 150 MG TABCR PO SCH ×2 (08:29→21:18)
[2019-03-25] MEDS: OXYBUTYNIN CHLORIDE 5 MG TAB PO SCH (08:29)
[2019-03-25] MEDS: LOSARTAN POTASSIUM 25 MG TAB PO SCH (08:29)
[2019-03-25] MEDS: VERAPAMIL HCL 240 MG TABCR PO SCH (08:29)
[2019-03-25] MEDS: INSULIN ASPART 100 UNITS/ML 3 ML PEN SC SCH ×4 (08:31→21:46)
[2019-03-25] MEDS: cefTRIAXone SODIUM 2,000 MG in DEXTROSE 5% 50 ML IV SCH (11:55)
[2019-03-25] MEDS: ACETAMINOPHEN 325 MG TAB PO PRN (13:19)
--- NOTE | 2019-03-25 17:20 | Urology Progress Note ---
Date of Service March 25, 2019 Assessment & Plan (1) Renal calculi: POD#2 s/p cysto left stent should be able to go out on bactri plan to see her in office on thursday (already had appt ) will plan for stone removal surgery in 1-2 weeks as outpatient Present on Admission?: Yes Subjective Patient resting comfortably. We reports fair appetite, no fevers, and feeling tired. Urine aith staph. [facility] Review of Systems Constitutional: + body aches, + fatigue, + anorexia and + daytime sleepiness; no fever Genitourinary: + dysuria, + urinary urgency and + nocturia; no hematuria Physical Exam Constitutional: well nourished, + obese, healthy appearing and comfortable Results & Data Vital Signs (Past 12 Hours) Vital Signs Temp Pulse Resp BP Pulse Ox 03/25/19 15:19 36.5 C 73 19 124/69 93 03/25/19 07:39 37.0 C 80 19 143/74 H 98
--- NOTE | 2019-03-25 18:47 | Hospitalist Progress Note ---
Date of Service March 25, 2019 Assessment & Plan (1) UTI (urinary tract infection): Completed UTI in the setting of obstructed left ureter pelvic renal stone with left hydro-nephrosis Urine culture: Positive for staph aureus MSSA Continue IV antibiotic with Zosyn Has been afebrile since yesterday, plan to transition to oral antibiotic possible tomorrow (2) Renal calculi: Presented with flank pain, fever CT abdomen pelvis noncontrast showed 1. 4 mm left ureteropelvic junction calculus resulting moderate left hydronephrosis with mild perinephric infiltration Appreciate input from urology Status post left ureteric stent placement Patient reports symptomatic improvement of left flank pain, Experiencing a burning sensation patient which is common after stent placement On IV Zosyn for MSSA UTI Appreciate input from urology, will plan to see patient in the clinic in 2 weeks for repeat urologic procedure to remove stone (3) HTN (hypertension): -BP stable, continue verapamil and losartan (4) Diabetes mellitus type 2, diet-controlled: -NovoLog per protocol while hospitalized (5) Dyslipidemia: -Continue statin (6) Depression: (7) Anxiety: (8) Migraine: -Continue home meds (9) DVT prophylaxis: -SCD and teds, patient is encouraged to ambulate Disposition: Expected to be discharged home in next 24 to 48 hours if remains afebrile Subjective Been spiking temperature, Still experiencing left-sided flank pain, intermittent hematuria No nausea vomiting Feels tired and wiped out Physical Exam Constitutional: + ill appearing Eyes: PERRL, conjunctivae normal, anicteric sclerae ENMT: external ear and nose normal, oropharynx normal Neck: trachea midline, no thyromegaly Respiratory: normal respiratory effort, lungs clear to auscultation Cardiovascular: RRR, no murmur, no edema Gastrointestinal (Abdomen): Percussion/Palpation: + abdomen tender Musculoskeletal: no cyanosis or clubbing, extremities motor strength 5/5 Skin: no rashes, warm and dry Neurologic: PERRL, EOMI, accommodation nl, no face palsy, no dysarthria Psychiatric: A+Ox3, euthymic affect Orientation: alert and oriented x 3 Speech: normal rate/rhythm/volume of speech Results & Data Vital Signs (Past 12 Hours) Vital Signs Temp Pulse Resp BP Pulse Ox 03/25/19 15:19 36.5 C 73 19 124/69 93 09/20/19 07:39 37.0 C 80 19 143/74 H 98 (1) UTI (urinary tract infection) Hematuria presence: without hematuria Urinary tract infection type: site unspecified Qualified Code(s): N39.0 - Urinary tract infection, site not specified
[2019-03-25] MEDS: ATORVASTATIN 40 MG TAB PO SCH (21:18)
[2019-03-25] MEDS: NORTRIPTYLINE HCL 25 MG CAP PO SCH (21:18)
[2019-03-25] MEDS: TRAZODONE HCL 100 MG TAB PO SCH (21:18)
[2019-03-25] MEDS: TOPIRAMATE 100 MG TAB PO SCH (21:18)
[2019-03-26] MEDS: BuPROPion SR 150 MG TABCR PO SCH (08:39)
[2019-03-26] MEDS: OXYBUTYNIN CHLORIDE 5 MG TAB PO SCH (08:39)
[2019-03-26] MEDS: LOSARTAN POTASSIUM 25 MG TAB PO SCH (08:39)
[2019-03-26] MEDS: ASPIRIN 81 MG ECTAB PO SCH (08:40)
[2019-03-26] MEDS: VERAPAMIL HCL 240 MG TABCR PO SCH (08:40)
[2019-03-26] MEDS: INSULIN ASPART 100 UNITS/ML 3 ML PEN SC SCH ×2 (08:42→12:46)
[2019-03-26] MEDS: cefTRIAXone SODIUM 2,000 MG in DEXTROSE 5% 50 ML IV SCH (11:58)
--- NOTE | 2019-03-26 14:29 | Discharge Summary ---
Date of Service March 26, 2019 Admission HPI Per Admitting Provider 73-year-old female who presents the ED for evaluation of right flank pain. Patient is somewhat confused and history is limited from her at this time. Family is the bedside. Patient was seen in the ED on 02/28 and diagnosed with UTI. She was discharged on Cipro however culture was positive for MSSA and patient was placed on Bactrim course which she completed. About 1 week ago, patient developed right flank pain. Family at the bedside reports that she is decompensated over the past couple of days. They report increasing confusion. Chills and rigors, however she did not take her temperature. She has had urinary frequency. Appetite has been poor however no nausea, vomiting, abdominal pain, diarrhea. No chest pain or shortness of breath. Denies lightheadedness, dizziness, diaphoresis, syncopal events. Patient was seen by her PCP and was sent to the ED for further evaluation. In the ED, CT ABD/pelvis is showing 4 mm left UPJ stone. Patient was initially afebrile however spiked a fever of 39.4. Labs are unremarkable. Patient was given IVF and IV Zosyn. Urology was contacted by the ED and patient will be going emergently to the OR [facility] for cystoscopy. Principal Diagnosis KIDNEY STONE Discharge Data Allergies Allergy/AdvReac Type Severity Reaction Status Date / Time pregabalin Allergy Intermediate SEVERE Verified 03/23/19 17:01 EDEMA FROM KNEES TO FEET Consultations 03/23/19 19:19 ED Decision to Admit Stat 03/23/19 22:03 Consult Urology Routine Procedures Performed Operation Date: 03/23/19 19:45 Actual Procedures p Cystoscopy, Left Ureteral Stent Insertion(Left) - mAy Emery MD Ordered Studies 03/23/19 16:42 CT abd pelvis wo con Stat 03/23/19 19:51 FL KUB Routine FL fluoroscopy <1hr Routine Hospital Course (1) UTI (urinary tract infection): Completed UTI in the setting of obstructed left ureter pelvic renal stone with left hydro-nephrosis Urine culture: Positive for staph aureus MSSA no fever or chills pt remains asymptomatic no sign of ongoing infection abx changed to PO Keflex , complete 10 more days of tx (2) Renal calculi: Presented with flank pain, fever CT abdomen pelvis noncontrast showed 1. 4 mm left ureteropelvic junction calculus resulting moderate left hydronephrosis with mild perinephric infiltration Appreciate input from urology Status post left ureteric stent placement Patient reports symptomatic improvement of left flank pain, Experiencing a burning sensation patient which is common after stent placement abx PO Keflex 500 mg BID Appreciate input from urology, pt is scheduled for URology follow up in clinic next week (3) HTN (hypertension): -BP stable, continue verapamil and losartan (4) Diabetes mellitus type 2, diet-controlled: -NovoLog per protocol while hospitalized (5) Dyslipidemia: -Continue statin (6) Depression: (7) Anxiety: (8) Migraine: -Continue home meds (9) DVT prophylaxis: -SCD and teds, patient is encouraged to ambulate Disposition: stable to be discharged home today Total Time Total Time Spent Total Time Spent (In Minutes): APPROX 35 M INS Total Time Includes: Examination of the Patient, Discharge Planning and Medication Reconciliation Discharge Plan Discharge Items Patient Disposition: Home - Self-Care Reason For Visit: UTI,RENAL CELCULI Discharge Diagnosis: KIDNEY STONE Activity: Resume your previous activity Non-emergency contact: Primary Care Provider Call non-emergency contact if: you have any medication questions Follow-up/Referrals: Feliciano Steen MD [Primary Care Provider] - Amy Emery MD [Physician] - Diet: Heart Healthy Addtl Attending Provider Instructions: FOLLOW UP WITH DR EMERY ( UROLOGY ) SCHEDULED FOLLOW UP WITH YOUR FAMILY PHYSICIAN DR STEEN IN 1 WEEK KEEP YOUR SELF HYDRATED , DRINK PLENTY OF FLUIDS PLEASE NOTIFY YOUR FAMILY PHYSICIAN OR COME TO ER IF IT IS AFTER HOURS -IF YOU STARTED TO EXPERIENCE MORE PAIN , DEVELOP FEVER OR CHILLS Pending Studies at Discharge: No Stand-Alone Forms: My [facility] [employer] [facility] Medications and DC Order Prescriptions: New cephalexin [Keflex] 500 mg capsule 500 mg PO BID 10 Days Qty: 20 RF: 0 phenazopyridine [Pyridium] 100 mg tablet 100 mg PO Q8H PRN (Reason: DYSURA) Qty: 20 RF: 0 Continued aspirin 81 mg Tablet,Delayed Release (Dr/Ec) 81 mg PO DAILY RF: 0 atorvastatin 40 mg tablet 40 mg HS RF: 0 bupropion HCl 150 mg tablet sustained-release 12 hr 150 mg PO BID RF: 0 meloxicam 15 mg tablet 15 mg PO DAILY RF: 0 sumatriptan succinate [Imitrex] 50 mg Tablet 50 mg PO UD PRN (Reason: Migraine Headache) RF: 0 nortriptyline 25 mg capsule 50 mg PO HS RF: 0 trazodone 100 mg tablet 100 mg PO HS RF: 0 omeprazole 20 mg capsule,delayed release(DR/EC) 20 mg PO DAILY RF: 0 verapamil 240 mg tablet extended release 240 mg PO DAILY RF: 0 topiramate 100 mg tablet 100 mg PO HS RF: 0 losartan 25 mg tablet 25 mg PO DAILY RF: 0 oxybutynin chloride 5 mg tablet 5 mg PO DAILY RF: 0 Discharge Orders: Discharge Order (Routine); Ordered 03/26/19 Ordered By: Chinyere Cueva Admission Data Admit Date/Time: 03/23/19 20:41 Attending Provider: Chinyere Cueva Admit Provider: Marky Smith Primary Care Provider: Feliciano Steen Other Providers: Francisco Larson Jennifer
[2019-03-26] MEDS ORDERED: cephALEXin 500 MG CAP PO ONE (16:00)
--- NOTE | 2019-03-30 10:22 | Coding Query ---
To promote full compliance with coding requirements relating to patient care, provider participation is requested in all cases of certified procedural coder uncertainty. Please assist us with the question(s) below: Coding Question(s): The diagnosis below was documented in the H&P then subsequently fell off all further documentation. Please indicate if it is still a possible diagnosis or ruled out. Physician's Response(s): SEPSIS ( x ) Diagnosed and POA ( ) Diagnosed and not POA ( ) Ruled out ( ) Other (please specify) MTDD
== END 2019-03-26 14:44 | disposition home or self-care (01) | DRG 854 ==
LOC: ED 15:26 → 3W 20:40 → OR 20:40 → 3W 20:41

== ENCOUNTER 2019-10-09 16:43 | Inpatient (IN) ==
[2019-10-09] MEDS ORDERED: ONDANSETRON INJ 2 MG/ML 2 ML VIAL IV STA (17:02)
[2019-10-09] MEDS ORDERED: cefTRIAXone SODIUM 1,000 MG/50 ML BAG IV STA (17:06)
[2019-10-09 17:11] LABS: Appearance Urine Turbid (Clear); Bacteria Urine Automated 3+ (Negative); Bilirubin Urine Negative (Negative); Blood Urine 3+ (Negative); Color Urine Yellow; Epithelial Cell Urine Auto >30 /lpf (0-5); Glucose Urine UA Negative (Negative); Ketones Urine Negative (Negative); Leukocyte Esterase Urine 3+ (Negative); Nitrite Urine Positive (Negative); Protein Urine 1+ (Negative); RBC Urine Automated >30 /hpf (0-4); Specific Gravity Urine 1.017 (1.000-1.030); Urobilinogen Urine Negative (Negative); WBC Urine Automated >30 /hpf (0-5)
[2019-10-09] MEDS ORDERED: SODIUM CHLORIDE 0.9% 500 ML IV SCH ×2 (17:15→20:30)
--- NOTE | 2019-10-09 17:15 | Emergency Department Note ---
History of Present Illness General Chief complaint: Urinary Symptoms Stated complaint: UTI SYMPTOMS Time Seen by Provider: 10/09/19 16:58 History of Present Illness Maximum Pain Intensity: 0 The patient is a 74-year-old female who presented to the emergency department for an evaluation of dysuria and frequency. The patient has a history of urinary tract infection in the past. She states that she began having symptoms approximately 4 days ago. She did not call her primary care physician or her primary urologist. She has a history of ureteral stenting because of hydronephrosis in the past. She does not feel that this was secondary to a kidney stone. She states that she had ureteral stricture in the past. She denies having any vomiting but does have some suprapubic pain back pain as well as nausea. The patient did not take any medication for fever prior to arrival. He denies having any chest pain or weakness. She does complain of a slight cough which is not productive. She is had no travel. The patient states her symptoms are moderate and she feels that she started frequent urination which has increased over the last few hours. Home Medications Home Medications Medication Instructions Recorded Confirmed Type atorvastatin [Lipitor] 40 mg PO HS 09/01/18 10/09/19 History bupropion HCl 150 mg PO BID 09/01/18 10/09/19 History meloxicam [Mobic] 15 mg PO QAM 09/01/18 10/09/19 History nortriptyline [Pamelor] 50 mg PO HS 09/01/18 10/09/19 History omeprazole 20 mg PO QAM 09/01/18 10/09/19 History sumatriptan succinate [Imitrex] 50 mg PO UD PRN 09/01/18 10/09/19 History trazodone 100 mg PO HS 09/01/18 10/09/19 History verapamil [Calan SR] 240 mg PO HS 09/01/18 10/09/19 History losartan [Cozaar] 25 mg PO QAM 03/23/19 10/09/19 History oxybutynin chloride 5 mg PO QAM 03/23/19 10/09/19 History aspirin [Aspir-81] 81 mg PO DAILY 10/09/19 10/09/19 History Allergies Allergy/AdvReac Type Severity Reaction Status Date / Time pregabalin Allergy Intermediate SEVERE Verified 04/05/20 18:27 EDEMA FROM KNEES TO FEET Past Med/Surg History Medical History Anxiety (Chronic) Depression (Chronic) Diabetes mellitus type 2, diet-controlled (Chronic) Dyslipidemia (Chronic) Esophageal stricture (Chronic) HTN (hypertension) (Chronic) Migraine (Chronic) Ureteral stone with hydronephrosis Surgical History H/O bladder repair surgery (Chronic) H/O repair of left rotator cuff (Chronic) H/O: hysterectomy (Inactive) History of back surgery (Inactive) History of cataract surgery (Inactive) History of cataract surgery (Chronic) History of hip replacement (Inactive) left and right History of nasal surgery (Chronic) History of total left hip arthroplasty (Chronic) Previous back surgery (Chronic) S/P TYLER (total abdominal hysterectomy) (Chronic) Family History Brother Myocardial infarction, Onset Age: 46 Fatal Mother Parkinson's disease Father Multiple sclerosis Social History Preferred Language: Swazi Communication Ability: Effective 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 and A total of 10 systems reviewed and were otherwise negative Physical Exam Vital Signs Vital Signs - 24 hr 10/09/19 16:51 10/09/19 17:35 10/09/19 18:26 Temperature 37.9 C H Temperature Source Oral Pulse Rate 85 Pulse Rate [Apical] 88 Pulse Rhythm Regular Pulse Strength Normal Respiratory Rate 20 16 Respiratory Effort / Characteristics Non-Labored Spontaneous Respiratory Depth Normal Respiratory Pattern Regular Blood Pressure 177/72 H Blood Pressure [Left Arm] 170/93 H Blood Pressure Mean 107 Blood Pressure Mean [Left Arm] 118 Blood Pressure Position Sitting Pulse Oximetry 96 97 94 Oxygen Delivery Method Room Air Room Air Room Air Sepsis Recent Fever Within 48 Hours No Sepsis Action Taken by Nursing No Action Required 10/09/19 18:36 Temperature 39.5 C H Temperature Source Oral Pulse Rate Pulse Rate [Apical] Pulse Rhythm Pulse Strength Respiratory Rate Respiratory Effort / Characteristics Respiratory Depth Respiratory Pattern Blood Pressure Blood Pressure [Left Arm] Blood Pressure Mean Blood Pressure Mean [Left Arm] Blood Pressure Position Pulse Oximetry Oxygen Delivery Method Sepsis Recent Fever Within 48 Hours Sepsis Action Taken by Nursing GENERAL: Patient is awake alert in no acute distress patient is resting comfortably and showing no signs of anxiety EYES: The conjunctivae are clear. The pupils are round and reactive. EARS, NOSE, MOUTH AND THROAT: The nose is without any evidence of any deformity. Mucous membranes are moist. Tongue is midline. NECK: The neck is nontender and supple. RESPIRATORY: Normal respiratory effort is noted there is no evidence of wheezing rhonchi or rales CARDIOVASCULAR: Regular rate and rhythm noted there no murmurs rubs or gallops normal S1 normal S2. GASTROINTESTINAL: Suprapubic tenderness was noted to palpation. There is no guarding rigidity. BACK: There was no midline tenderness noted palpation. There was mild CVA tenderness to palpation. MUSCULOSKELETAL/EXTREMITIES: There is no evidence of gross deformity full range of motion is noted in the hips and shoulders. SKIN: There is no obvious evidence of any rash. There are no petechiae, pallor or cyanosis noted. NEUROLOGIC: Patient is awake alert and oriented x3. Course Course 184: I discussed this case with Dr. Bridges who is covering for the [facility] neurology group. She is the patient's primary urologist and agrees with inpatient management at this time given the patient's findings but she does not likely require stenting at this time. I discussed this with the patient. I agree with this plan at this time. 1929: I discussed this case with Dr. Polo. He is agreed to evaluate the patient in the emergency department for further management and disposition. Administered Medications Atorvastatin Calcium (Lipitor) 40 mg PO HS [facility] Stop: 11/08/19 20:59 Last Admin: 10/09/19 21:34 Dose: 40 mg Documented by: [id number] Bupropion HCl (Wellbutrin-Sr) 150 mg PO BID [facility] Stop: 11/08/19 20:59 Last Admin: 10/09/19 21:35 Dose: 150 mg Documented by: [id number] Sodium Chloride (Nss 1000ml) 1,000 mls @ 125 mls/hr IV .Q8H [facility] Stop: 10/10/19 03:56 Last Admin: 10/09/19 22:31 Dose: 125 mls/hr Documented by: [id number] Insulin Aspart (Novolog Flexpen) 0 units SC ACHS [facility] Stop: 11/08/19 20:59 Last Admin: 10/09/19 21:36 Dose: Not Given Documented by: [id number] Cosigned by: [id number] Nortriptyline HCl (Pamelor) 50 mg PO [facility] Stop: 11/08/19 20:59 Last Admin: 10/09/19 21:34 Dose: 50 mg Documented by: [id number] Trazodone HCl (Desyrel) 100 mg PO [facility] Stop: 11/08/19 20:59 Last Admin: 10/09/19 21:34 Dose: 100 mg Documented by: [id number] Verapamil HCl (Calan Sr) 240 mg PO [facility] Stop: 11/08/19 20:59 Last Admin: 10/09/19 21:34 Dose: 240 mg Documented by: [id number] Discontinued Medications Acetaminophen (Tylenol) 1,000 mg PO NOW STA Stop: 10/09/19 18:35 Last Admin: 10/09/19 18:40 Dose: 1,000 mg Documented by: [id number] Sodium Chloride (Nss) 500 mls @ 999 mls/hr IV .Q31M [facility] Stop: 10/09/19 17:45 Last Infusion: 10/09/19 18:11 Dose: 0 mls/hr Documented by: [id number] Admin: 10/09/19 17:16 Dose: 999 mls/hr Documented by: [id number] Ceftriaxone Sodium (Rocephin) 1,000 mg in 50 mls @ 100 mls/hr IV NOW STA Stop: 10/09/19 17:35 Last Infusion: 10/09/19 18:11 Dose: 0 mls/hr Documented by: [id number] Admin: 10/09/19 17:16 Dose: 100 mls/hr Documented by: [id number] Sodium Chloride (Nss 1000ml) 500 mls @ 999 mls/hr IV .Q31M ONE Stop: 10/09/19 19:04 Last Infusion: 10/09/19 19:08 Dose: 0 mls/hr Documented by: [id number] Admin: 10/09/19 18:37 Dose: 999 mls/hr Documented by: [id number] Sodium Chloride (Nss) 500 mls @ 500 mls/hr IV .Q1H [facility] Stop: 10/09/19 21:29 Last Infusion: 10/09/19 22:31 Dose: 0 mls/hr Documented by: [id number] Admin: 10/09/19 21:18 Dose: 500 mls/hr Documented by: [id number] Piperacillin Sod/Tazobactam (Sod 4.5 gm/ Dextrose) 120 mls @ 200 mls/hr IV ONE ONE; Protocol Stop: 10/09/19 21:50 Last Admin: 10/09/19 22:31 Dose: 200 mls/hr Documented by: [id number] Miscellaneous (Patient's Height And/Or Weight Needed) 1 ea N/A Q2H [facility] Stop: 11/08/19 20:14 Last Admin: 10/09/19 22:35 Dose: Not Given Documented by: [id number] Ondansetron HCl (Zofran) 4 mg IV NOW STA Stop: 10/09/19 17:03 Last Admin: 10/09/19 17:16 Dose: 4 mg Documented by: [id number] Medical Decision Making Differential Diagnosis Etiologies such as appendicitis, diverticulitis, obstruction, inflammatory bowel disease, renal colic, PUD, biliary pathology, pancreatitis, mesenteric ischemia, aortic pathology, infections, genitourinary, UTI, perforated viscus, as well as others were entertained. Medical Records Attestation: I reviewed the patient's medical records. Home Medications Current Medication List: was personally reviewed by me Laboratory Data Attestation: I reviewed the patient's lab results. Result diagrams: 10/09/19 17:32 10/09/19 17:32 Lab Results 10/09/19 10/09/19 Range/Units 17:32 17:32 WBC 10.93 H (4.8-10.8) K/uL RBC 4.18 L (4.2-5.4) M/uL Hgb 12.4 (12.0-16.0) g/dL Hct 38.1 (37-47) % MCV 91.1 (80-100) fL MCH 29.7 (25-34) pg MCHC 32.5 (32-36) g/dL RDW Std Deviation 42.4 (36.4-46.3) fL RDW Coeff of Cristel 12.7 (11.5-14.5) % Plt Count 176 (130-400) K/uL MPV 9.4 (7.4-10.4) fL Immature Gran % (Auto) 0.4 % Neut % (Auto) 83.7 % Lymph % (Auto) 8.2 % Haralson % (Auto) 7.0 % Eos % (Auto) 0.5 % Baso % (Auto) 0.2 % Immature Gran # (Auto) 0.04 H (0.00-0.02) K/uL Neut # (Auto) 9.16 H (1.4-6.5) K/uL Lymph # (Auto) 0.90 L (1.2-3.4) K/uL Haralson # (Auto) 0.76 H (0.11-0.59) K/uL Eos # (Auto) 0.05 (0-0.5) K/uL Baso # (Auto) 0.02 (0-0.2) K/uL Sodium 135 L (136-145) mmol/L Potassium 4.6 (3.5-5.1) mmol/L Chloride 103 (98-107) mmol/L Carbon Dioxide 24 (21-32) mmol/L Anion Gap 8.0 (3-11) BUN 19 H (7-18) mg/dl Creatinine 1.11 (0.6-1.2) mg/dl Est Cr Clr Drug Dosing Not Reportable Est GFR ( Amer) 56.7 Est GFR (Non-Af Amer) 48.9 BUN/Creatinine Ratio 16.8 (10-20) Glucose 131 H (70-99) mg/dl Calcium 8.9 (8.5-10.1) mg/dl Total Bilirubin 0.3 (0.2-1) mg/dl AST 7 L (15-37) U/L ALT 14 (12-78) U/L Alkaline Phosphatase 133 H (45-117) U/L Total Protein 7.6 (6.4-8.2) gm/dl Albumin 3.3 L (3.4-5.0) gm/dl Globulin 4.3 H (2.5-4.0) gm/dl Albumin/Globulin Ratio 0.8 L (0.9-2) Lipase 30 L (73-393) U/L Imaging Data Radiologist's Impression: CT OF THE ABDOMEN AND PELVIS WITHOUT CONTRAST CLINICAL HISTORY: flank pain and fever COMPARISON STUDY: CT of the abdomen and pelvis March 23, 2019. TECHNIQUE: Axial images of the abdomen and pelvis were obtained without IV contrast. Images were reviewed in the axial, sagittal, and coronal planes. Automated exposure control was utilized for the study. A dose lowering technique was utilized adhering to the principles of ALARA. FINDINGS: Mild lingular and right middle lobe airspace opacities favor scarring. These are unchanged. Unenhanced images of the liver, spleen, adrenal glands are unremarkable. Pancreatic glandular atrophy is again noted. No biliary or pancreatic ductal dilatation is noted. There is mild right hydronephrosis and hydroureter. No ureteral calculi are identified although the distal right ureter is obscured by streak artifact from bilateral hip arthroplasties. There is no evidence for a bowel obstruction. Sigmoid diverticulosis is noted without evidence for acute diverticulitis. The appendix is not visualized. There is no lymphadenopathy. There are no suspicious osseous lesions. IMPRESSION: 1. Mild right hydronephrosis and hydroureter. No ureteral calculi identified although distal ureter obscured by streak artifact from bilateral hip arthroplasties. Differential considerations include a recently passed right- sided calculus, an infectious process or less likely a small occult distal right ureteral calculus. 2. No bowel obstruction. 3. Mild lingular and right middle lobe airspace opacities which favor scarring or atelectasis. ACT 112: Negative or not required by law. Electronically signed by: Emanuel Lacey M.D. 10/09/2019 6:25 PM Dictated: 10/09/191815 Transcribed: 10/09/191815 XR chest 1V portable CLINICAL HISTORY: Cough. COMPARISON STUDY: Chest radiograph February 28, 2019. FINDINGS: Lung volumes are normal. Minimal left basilar opacity favors atelectasis. There is no pneumothorax or pleural effusion. Cardiac size is stable. Mediastinal contours are normal. There is no evidence for pulmonary edema. Incidental note is made of postoperative findings within the cervical spine. IMPRESSION: No acute cardiopulmonary findings. ACT 112: Negative or not required by law. Electronically signed by: Emanuel Lacey M.D. 10/09/2019 6:16 PM Dictated: 04/11/22 1813 Transcribed: 10/09/191813 Blood Pressure Blood Pressure Findings: Elevated blood pressure Blood Pressure Disposition: further management by hospitalist MDM Narrative The patient is a 74-year-old female who presented to the emergency department for an evaluation of dysuria and frequency. The patient was found to have flank pain as well as low-grade fever. The patient was found to have signs of urinary tract infection on urinalysis. I reviewed the patient's previous urinalysis. She has a history of Staphylococcus aureus in her urine which has traditionally been pansensitive. The patient was started on IV fluids as well as IV Rocephin in the emergency department. I discussed the patient's laboratory and radiographic studies with her. She was reevaluated multiple times. She was found to have signs of hydronephrosis on the CAT scan. I was concerned that this could represent some degree of worsening pyelonephritis. I discussed this case with the patient's primary urologist. I also discussed this case with the hospitalist team. The patient started having rigors while she was in the emergency department. I am very concerned this represents worsening of a higher tract urinary infection. This reason I feel she may require further inpatient management. Impression & Plan Acute pyelonephritis, Fever, Hydronephrosis, Hematuria Discharge Plan Visit Data *Final* Discharge Date/Time: 10/09/19 19:40 Chief Complaint: Urinary Symptoms Stated Complaint: UTI SYMPTOMS ED Provider: Brian Guerrero Discharge Problem: Acute pyelonephritis, Fever, Hydronephrosis, Hematuria Patient Disposition: Admitted As Inpatient Condition: Good Discharge Instructions Interventions: ED Discharge Assessment Last Done: 10/09/19 19:40 Discharge Problem: Fever Qualifiers: Fever type: unspecified Qualified Code(s): R50.9 - Fever, unspecified Hydronephrosis Qualifiers: Hydronephrosis type: unspecified Qualified Code(s): N13.30 - Unspecified hydronephrosis Hematuria Qualifiers: Hematuria type: unspecified type Qualified Code(s): R31.9 - Hematuria, unspecified
[2019-10-09 18:02] LABS: Basophils # (auto) 0.02 K/uL (0-0.2); Basophils % (auto) 0.2 %; Eosinophils # (auto) 0.05 K/uL (0-0.5); Eosinophils % (auto) 0.5 %; Hematocrit (blood only) 38.1 % (37-47); Hemoglobin 12.4 g/dL (12.0-16.0); Immature Granulocytes # (auto) 0.04 K/uL (0.00-0.02); Immature Granulocytes % (auto) 0.4 %; Lymphocytes % (auto) 8.2 %; Mean Corpuscular Hemoglobin 29.7 pg (25-34); Mean Corpuscular Hgb Conc 32.5 g/dL (32-36); Mean Corpuscular Volume 91.1 fL (80-100); Mean Platelet Volume 9.4 fL (7.4-10.4); Monocytes # (auto) 0.76 K/uL (0.11-0.59); Neutrophils # (auto) 9.16 K/uL (1.4-6.5); Neutrophils % (auto) 83.7 %; Platelet Count 176 K/uL (130-400); RDW Coefficient of Variation 12.7 % (11.5-14.5); RDW Standard Deviation 42.4 fL (36.4-46.3); Red Blood Count 4.18 M/uL (4.2-5.4); White Blood Count 10.93 K/uL (4.8-10.8)
--- NOTE | 2019-10-09 18:17 | XRay Report ---
XR chest 1V portable CLINICAL HISTORY: Cough. COMPARISON STUDY: Chest radiograph February 28, 2019. FINDINGS: Lung volumes are normal. Minimal left basilar opacity favors atelectasis. There is no pneum othorax or pleural effusion. Cardiac size is stable. Mediastinal contours are normal. There is no lewis dence for pulmonary edema. Incidental note is made of postoperative findings within the cervical spin e. IMPRESSION: No acute cardiopulmonary findings. ACT 112: Negative or not required by law. Electronically signed by: Emanuel Lacey M.D. 10/09/2019 6:16 PM
[2019-10-09 18:19] LABS: Alanine Aminotransferase 14 U/L (12-78); Albumin Level 3.3 gm/dl (3.4-5.0); Aspartate Aminotransferase 7 U/L (15-37); BUN Creatinine Ratio 16.8 (10-20); Blood Urea Nitrogen 19 mg/dl (7-18); Calcium 8.9 mg/dl (8.5-10.1); Carbon Dioxide 24 mmol/L (21-32); Chloride 103 mmol/L (98-107); Est GFR (African American) 56.7; Est GFR (Non-African American) 48.9; Glucose 131 mg/dl (70-99); Lipase 30 U/L (73-393); Potassium 4.6 mmol/L (3.5-5.1); Sodium 135 mmol/L (136-145)
[2019-10-09 18:22] LABS: Albumin Globulin Ratio 0.8 (0.9-2); Alkaline Phosphatase 133 U/L (45-117); Bilirubin,Total 0.3 mg/dl (0.2-1); Globulin 4.3 gm/dl (2.5-4.0); Total Protein 7.6 gm/dl (6.4-8.2)
--- NOTE | 2019-10-09 18:26 | CT Scan Report ---
CT OF THE ABDOMEN AND PELVIS WITHOUT CONTRAST CLINICAL HISTORY: flank pain and fever COMPARISON STUDY: CT of the abdomen and pelvis March 23, 2019. TECHNIQUE: Axial images of the abdomen and pelvis were obtained without IV contrast. Images were revi ewed in the axial, sagittal, and coronal planes. Automated exposure control was utilized for the berenice dy. A dose lowering technique was utilized adhering to the principles of ALARA. FINDINGS: Mild lingular and right middle lobe airspace opacities favor scarring. These are unchanged. Unenhanced images of the liver, spleen, adrenal glands are unremarkable. Pancreatic glandular atroph y is again noted. No biliary or pancreatic ductal dilatation is noted. There is mild right hydronephr osis and hydroureter. No ureteral calculi are identified although the distal right ureter is obscured by streak artifact from bilateral hip arthroplasties. There is no evidence for a bowel obstruction. Sigmoid diverticulosis is noted without evidence for acute diverticulitis. The appendix is not visual ized. There is no lymphadenopathy. There are no suspicious osseous lesions. IMPRESSION: 1. Mild right hydronephrosis and hydroureter. No ureteral calculi identified although distal ureter o bscured by streak artifact from bilateral hip arthroplasties. Differential considerations include a r ecently passed right-sided calculus, an infectious process or less likely a small occult distal right ureteral calculus. 2. No bowel obstruction. 3. Mild lingular and right middle lobe airspace opacities which favor scarring or atelectasis. ACT 112: Negative or not required by law. Electronically signed by: Emanuel Lacey M.D. 10/09/2019 6:25 PM
[2019-10-09] MEDS ORDERED: ACETAMINOPHEN 500 MG TAB PO STA (18:34)
[2019-10-09] MEDS ORDERED: SODIUM CHLORIDE 0.9% 1000ML 500 ML IV ONE (18:34)
[2019-10-09] MEDS ORDERED: MoRPHine SULFATE 2 MG/ML CARP IV PRN (19:23)
[2019-10-09] MEDS ORDERED: GLUCAGON FOR INJ 1 MG VIAL SQ PRN (19:57)
[2019-10-09] MEDS ORDERED: MAGNESIUM HYDROXIDE SUSP 30 ML UDC PO PRN (19:57)
[2019-10-09] MEDS ORDERED: GLUCOSE 10 TABS/TUBE PO PRN (19:57)
[2019-10-09] MEDS ORDERED: ALUMINUM/MAGNESIUM SUSP 30 ML UDC PO PRN (19:57)
[2019-10-09] MEDS ORDERED: CARBOHYDRATES FOR HYPOGLYCEMIA PO PRN (19:57)
[2019-10-09] MEDS ORDERED: DEXTROSE 50% 50 ML SYRINGE IV PRN (19:57)
[2019-10-09] MEDS ORDERED: SODIUM CHLORIDE 0.9% 1000ML 1,000 ML IV SCH (19:57)
[2019-10-09] MEDS ORDERED: PIPERACILL/TAZOBAC CONSULT ACTIVE PRN (19:57)
[2019-10-09] MEDS ORDERED: ONDANSETRON INJ 2 MG/ML 2 ML VIAL IV PRN (19:57)
[2019-10-09] MEDS ORDERED: GLUCOSE 40% GEL 15 GM TUBE PO PRN (19:57)
[2019-10-09] MEDS ORDERED: PATIENT'S HEIGHT AND/OR WEIGHT NEEDED SCH (20:15)
[2019-10-09] MEDS ORDERED: VANCOMYCIN CONSULT ACTIVE PRN (20:23)
[2019-10-09] MEDS ORDERED: INSULIN ASPART 100 UNITS/ML 3 ML PEN SC SCH (21:00)
[2019-10-09] MEDS ORDERED: PIPERACILLIN/TAZOBACTAM 4.5 GM in DEXTROSE 5% 100 ML IV ONE (21:15)
[2019-10-09] MEDS ORDERED: VANCOMYCIN HCL 1,750 MG in SODIUM CHLORIDE 0.9% 500 ML IV ONE (21:15)
--- NOTE | 2019-10-09 21:24 | History and Physical Report ---
DATE OF ADMISSION: 10/09/2019 CHIEF COMPLAINT: Fever. HISTORY OF PRESENT ILLNESS: This is a 74-year-old female with past medical history significant for type 2 diabetes, not on any medications, hyperlipidemia, hypertension, history of esophageal stricture, history of pyelonephritis, left ureteral calculus, history of spondylolisthesis of lumbar region, status post left hip replacement, migraines, normocytic anemia, history of sepsis due to Pseudomonas with acute organ dysfunction, history of recurrent major depression, generalized anxiety disorder, persistent insomnia who lives at home with her and comes with fever. The patient says she has fever for the last 4 days and also has some cough, and brings up whitish phlegm since the last 4 days. She is not getting better, so she came to the ER and she also complains of lower back pain on right side, her hip pain got worse . She has a history of recurrent UTI with renal calculi in March with moderate left hydronephrosis at that time. She was at that time status post left hip replacement and cultures grew MSSA. Today in the ER, UA was positive and she was spiking temperature, white count of 10.9 and CAT scan showing mild right hydronephrosis and hydroureter. No ureteral calculus identified, possible passed right-sided calculus. The patient currently seems to be resting comfortably. Has some headaches. She has chronic migraines. Denies any blurred vision, no earache, no runny nose, no sore throat, no difficulty swallowing. Appetite is okay. Difficulty sleeping in the last couple of days because of low back pain. Denies any chest pain, no shortness of breath, no nausea, no abdominal pain, no diarrhea or constipation, no blood in stools or black stools. Has frequent urination. Denies any hematuria or burning micturition, no rash. ALLERGIES: PREGABALIN. PAST MEDICAL HISTORY: As mentioned above. PAST SURGICAL HISTORY: Left shoulder surgery, cystoscopy with lithotripsy, cystourethroscopy with biopsy, cervical fusion in 2008, laser surgery of the right cataract, partial removal of the eye fluid on the left side, bilateral cataract surgery, repair of the nose septum fracture, repair of the sciatic nerve with laminectomy, total abdominal hysterectomy with removal of tubes, left total hip replacement and prosthesis. MEDICATIONS: The patient is currently on aspirin 81 mg p.o. daily, atorvastatin 40 mg p.o. at bedtime, bupropion 150 mg p.o. b.i.d., Cozaar 25 mg q.a.m., meloxicam 15 mg p.o. q.a.m., nortriptyline 50 mg p.o. at bedtime, omeprazole 20 mg p.o. q.a.m., oxybutynin 5 mg p.o. q.a.m., sumatriptan p.r.n., trazodone 100 mg p.o. at bedtime, verapamil 240 mg p.o. at bedtime. FAMILY HISTORY: Significant for brother has diabetes, heart disorder, daughter has headaches. SOCIAL HISTORY: , lives with her . No smoking, no alcohol, no drug use. REVIEW OF SYMPTOMS: As per HPI. Rest of the review of systems is negative. PHYSICAL EXAMINATION: GENERAL: The patient is of moderate build, not in acute distress. VITAL SIGNS: Temperature 39.5, pulse 90, respiratory rate 16, blood pressure 116/77, oxygen 93% on room air. HEENT: No pallor, no icterus. Extraocular muscles intact. NECK: No neck masses. Supple. CARDIOVASCULAR: S1, S2 heard, regular rate and rhythm, no murmur, no gallop. RESPIRATORY SYSTEM: Normal AP diameter. No accessory muscle use. No wheezing, no crackles. ABDOMEN: Soft, bowel sounds present. Nontender. Right CVA tenderness present. No distention. CENTRAL NERVOUS SYSTEM: Cranial nerves II-XII grossly intact, nonfocal. EXTREMITIES: No edema, no erythema. LABORATORY DATA: WBC 10.9, hemoglobin 12.4, hematocrit 38.1, platelets 176. Sodium 135, potassium 4.6, chloride 103, bicarbonate 24, BUN 19, creatinine 1.1, serum glucose 131, calcium 8.9, total bilirubin 0.3, AST 7, ALT 14, alkaline phosphatase 133. Lipase 30. Urinalysis positive for leukocyte esterase and nitrite, +[address] of abdomen and pelvis shows mild right hydronephrosis and hydroureter. No ureterocalculi identified, although distal ureter obscured by streak artifact from bilateral hip arthroplasties. Differential considerations include a recently passed right-sided calculus and infectious process or less likely a small occult distal right ureteral calculus. No bowel obstruction. Mild lingular and right middle lobe airspace opacity which favors scarring or atelectasis. Chest x-ray, no acute findings. ASSESSMENT AND PLAN: This is a 74-year-old female who presents with fever and cough and found to have urinary tract infection. 1. Fever, most likely sepsis secondary to urinary tract infection. Meets criteria for sepsis with tachycardia, fever spike, elevated white count and urinary tract infection. CAT scan is showing right hydronephrosis, possible recently passed stone or possible occult distal small stone. Urology was notified by the Emergency Room. History of methicillin-sensitive Staphylococcus aureus infection in the urine. Empirically started on IV Zosyn and vancomycin for now, IV fluids. Follow the cultures. Consult urology in the morning and closely monitor. 2. History of diabetes, not on any medications. Continue the patient with insulin sliding scale. HbA1c level. Follow up blood sugars. 3. Hyperlipidemia. Continue statin. 4. Depression with anxiety. Continue Wellbutrin. 5. Hypertension, on Cozaar and verapamil. We will follow the blood pressure. 6. Gastroesophageal reflux disease, on proton pump inhibitor. 7. Deep vein thrombosis prophylaxis, sequential compression devices. DISPOSITION: Closely monitor in the medical floor. Level 1 full code. MTDD
--- NOTE | 2019-10-09 21:27 | Pharmacy Report ---
Pharmacy Abx Initial Consult - Date of Service October 09, 2019 - Pharmacy Dosing Scope Date of Consult: 10/09/19 Consultation requested by: Dr. Larson Pharmacy is consulted to initiate vancomycin and Zosyn IV dosing therapy, order appropriate labs and adjust drug dose/frequency. - Subjective The patient is a 74 year old F admitted on 10/09/19 19:22. - Objective Height: 5 ft 4 in Weight: 80.9 kg Vital Signs (Past 12hrs): Vital Signs Temp Pulse Pulse Resp BP BP Pulse Ox 10/09/19 20:00 38.9 C H 95 H 16 174/74 H 93 10/09/19 19:40 39.5 C H 10/09/19 19:26 90 16 169/77 H 92 10/09/19 18:36 39.5 C H 10/09/19 18:26 88 16 170/93 H 94 10/09/19 17:35 97 10/09/19 16:51 37.9 C H 85 20 177/72 H 96 Lab Results (24hrs): Laboratory Tests (24 Hours) 10/09/19 10/09/19 17:32 17:32 WBC 10.93 H Neut # (Auto) 9.16 H Creatinine 1.11 Est Cr Clr Drug Dosing Not Reportable Micro Results: 10/09/19 Unknown Urine Culture - Pending Urine,Clean Catch - Assessment & Plan Assessment 74 year old F receiving empiric vancomycin and Zosyn for treatment of complicated UTI. Patient has a history of ureteral stent placement due to hydronephrosis and recurrent UTI - multiple previous urine cultures growing levy- sensitive MSSA. Patient complains of dysuria and increased frequency of urination on admission. Patient also febrile on admission (Tmax: 39.5). Urine culture pending. Plan Vancomycin IV * Estimated PK Parameters: Vd 0.7 L/kg, Aki 0.039 hr-1, t1/2 17 hr * Loading dose: 1750 mg (22 mg/kg) * Maintenance dose: 1000 mg IV (12 mg/kg) every 18 hours * Goal trough level for UTI : 10 to 20 mcg/mL Piperacillin/tazobactam * 4.5 g bolus administered over 30 minutes, then 3.375 g IV extended infusion every 8 hours for CrCl greater than 20 mL/min OR every 12 hours for CrCl 20 mL/min or less and dialysis. Pharmacy will continue to follow and will adjust dose/frequency as necessary. Thank you.
[2019-10-09] MEDS: ATORVASTATIN 40 MG TAB PO SCH (21:34)
[2019-10-09] MEDS: NORTRIPTYLINE HCL 25 MG CAP PO SCH (21:34)
[2019-10-09] MEDS: VERAPAMIL HCL 240 MG TABCR PO SCH (21:34)
[2019-10-09] MEDS: TRAZODONE HCL 100 MG TAB PO SCH (21:34)
[2019-10-09] MEDS: BuPROPion SR 150 MG TABCR PO SCH (21:35)
[2019-10-10] MEDS: PIPERACILLIN/TAZOBACTAM 3.375 GM in DEXTROSE 5% 100 ML IV SCH ×2 (02:14→11:03)
[2019-10-10] MEDS: ACETAMINOPHEN 325 MG TAB PO PRN ×3 (03:35→16:40)
[2019-10-10 05:56] LABS: Hematocrit (blood only) 33.4 % (37-47); Hemoglobin 10.7 g/dL (12.0-16.0); Mean Corpuscular Hemoglobin 29.3 pg (25-34); Mean Corpuscular Volume 91.5 fL (80-100); Mean Platelet Volume 9.4 fL (7.4-10.4); Platelet Count 183 K/uL (130-400); RDW Coefficient of Variation 12.7 % (11.5-14.5); RDW Standard Deviation 42.9 fL (36.4-46.3); Red Blood Count 3.65 M/uL (4.2-5.4); White Blood Count 11.35 K/uL (4.8-10.8)
[2019-10-10 06:27] LABS: BUN Creatinine Ratio 14.6 (10-20); Calcium 8.2 mg/dl (8.5-10.1); Creatinine Clr Calc Pharmacy 45.8 ml/min; Est GFR (African American) 56.7; Est GFR (Non-African American) 48.9; Potassium 4.3 mmol/L (3.5-5.1)
[2019-10-10] MEDS ORDERED: Nursing to Pharmacy Communication ONE ×2 (06:52→09:32)
[2019-10-10] MEDS ORDERED: INSULIN ASPART 100 UNITS/ML 3 ML PEN SC SCH (07:00)
[2019-10-10 07:19] LABS: Estimated Average Glucose 137 mg/dl; Hemoglobin A1C 6.4 % (4.5-5.6)
--- NOTE | 2019-10-10 07:21 | Urology Consultation ---
Date of Consultation October 10, 2019 Assessment & Plan (1) Acute pyelonephritis: right complicated uti likely a pyelonephritis but the stranding around the kidney is not impressive on the ct scan. I do not see a distal ureteral stone and her bladder symptoms do not suggest one but the ureteral dilation is moderate not mild. Her right flank pain has resolved so perhaps she passed a stone yesterday prior to ct scan. We will allow her to eat normally today and do not plan to stent the right side but with any failure to progress or clinical worsening we will have to reconsider this. Will follow Present on Admission?: Yes History of Present Illness Reason for Consultation: uti Requesting Physician: Dr Cueva Attending Physician: Chinyere Cueva MD History of Present Illness I am asked by Dr Cueva to evaluate and treat for UTI. She has a history of frequent uti with sepsis and obstructing ureteral stones. She began with urinary frequency just yesterday but had fevers and feeling unwell for a few days prior to that. She is voiding bout hourly overnight here in hospital but she gets complete relief of bladder pressure once she voids. She had right flank pain yesterday but none this am. She had high fevers yesterday and early this am. Allergies Allergy/AdvReac Type Severity Reaction Status Date / Time pregabalin Allergy Intermediate SEVERE Verified 10/09/19 18:27 EDEMA FROM KNEES TO FEET Home Medications Home Medications Medication Instructions Recorded Confirmed Type atorvastatin [Lipitor] 40 mg PO HS 09/01/18 10/09/19 History bupropion HCl 150 mg PO BID 09/01/18 10/09/19 History meloxicam [Mobic] 15 mg PO QAM 09/01/18 10/09/19 History nortriptyline [Pamelor] 50 mg PO HS 09/01/18 10/09/19 History omeprazole 20 mg PO QAM 09/01/18 10/09/19 History sumatriptan succinate [Imitrex] 50 mg PO UD PRN 09/01/18 10/09/19 History trazodone 100 mg PO HS 09/01/18 10/09/19 History verapamil [Calan SR] 240 mg PO HS 09/01/18 10/09/19 History losartan [Cozaar] 25 mg PO QAM 03/23/19 10/09/19 History oxybutynin chloride 5 mg PO QAM 03/23/19 10/09/19 History aspirin [Aspir-81] 81 mg PO DAILY 10/09/19 10/09/19 History Patient History Medical History Anxiety (Chronic) Depression (Chronic) Diabetes mellitus type 2, diet-controlled (Chronic) Dyslipidemia (Chronic) Esophageal stricture (Chronic) HTN (hypertension) (Chronic) Migraine (Chronic) Ureteral stone with hydronephrosis Surgical History H/O bladder repair surgery (Chronic) H/O repair of left rotator cuff (Chronic) H/O: hysterectomy (Inactive) History of back surgery (Inactive) History of cataract surgery (Inactive) History of cataract surgery (Chronic) History of hip replacement (Inactive) left and right History of nasal surgery (Chronic) History of total left hip arthroplasty (Chronic) Previous back surgery (Chronic) S/P TYLER (total abdominal hysterectomy) (Chronic) Family History Brother Myocardial infarction, Onset Age: 46 Fatal Mother Parkinson's disease Father Multiple sclerosis Social History Preferred Language: Nepalese Communication Ability: Effective 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 Beliefs That Will Affect Care: None Current Living Situation: Spouse Current Living Situation Comment: Home with spouse Other Information That Helps Us Care for You: No Feels Safe at Home: Yes Safety Concerns: Feels Safe At This Time Smoking Status: Never smoker Do You Dip or Chew Tobacco: No ; Second Hand Exposure: No ; Tobacco Cessation Education Requested by Patient: No Hx Alcohol Use: No Hx Substance Use: No Review of Systems Review of Systems: PMH- htn, cholesterol, borderline DM, back surgeries, hysterectomy, cervical and lumbar spine surgeries, hip replacement Soc- lives with and other family nearby, never tobacco no alcohol, retired Fam Hx- no one else with stones ROS- + fevers + chills, no shortness of breath, no rash, no emesis, mild nausea, bowels fine, no seizures, + weakness and fatigue. Physical Exam Constitutional: WD/WN, vitals as above + obese, cooperative and comfortable; no acute distress appears tired but is awake and answers questions appropriately Eyes: PERRL, conjunctivae normal, anicteric sclerae Respiratory: normal respiratory effort and able to speak in complete sentences; no retractions and no cough Gastrointestinal (Abdomen): normal bowel sounds, soft, nontender, no hepatosplenomegaly Skin: no rashes, warm and dry Psychiatric: A+Ox3, euthymic affect Results & Data Vital Signs (Past 12 Hours) Vital Signs Temp Pulse Pulse Pulse Resp BP Pulse Ox 10/10/19 03:27 39.2 C H 73 18 118/64 94 10/10/19 00:12 95 H 10/09/19 23:18 37.7 C H 80 15 131/66 94 10/09/19 20:00 38.9 C H 95 H 16 174/74 H 93 10/09/19 19:40 39.5 C H 10/09/19 19:26 90 16 169/77 H 92
[2019-10-10] MEDS: LOSARTAN POTASSIUM 25 MG TAB PO SCH (08:15)
[2019-10-10] MEDS: PANTOprazole 40 MG TAB PO SCH (08:15)
[2019-10-10] MEDS: OXYBUTYNIN CHLORIDE 5 MG TAB PO SCH (08:15)
[2019-10-10] MEDS: ASPIRIN 81 MG ECTAB PO SCH (08:15)
[2019-10-10] MEDS: BuPROPion SR 150 MG TABCR PO SCH ×2 (08:15→20:53)
[2019-10-10] MEDS: INSULIN ASPART 100 UNITS/ML 3 ML PEN SC SCH ×3 (12:16→20:54)
[2019-10-10] MEDS ORDERED: VANCOMYCIN HCL 1,000 MG in SODIUM CHLORIDE 0.9% 250 ML IV SCH (15:00)
--- NOTE | 2019-10-10 16:48 | Hospitalist Progress Note ---
Date of Service October 10, 2019 Assessment & Plan (1) Acute pyelonephritis: admitted fever , rt flank pain hx of renal stone in past CT abdomen /pelvis non contrast : Mild right hydronephrosis and hydroureter. No ureteral calculi identified although distal ureter obscured by streak artifact from bilateral hip arthroplasties. Differential considerations include a recently passed right- sided calculus, an infectious process or less likely a small occult distal right ureteral calculus. Differential considerations include a recently passed right- sided calculus, an infectious process or less likely a small occult distal right ureteral calculus. no evidence of sepsis appreciate input from Urology possible passage of stone no urological intervention needed recommends treatment with antibiotic only COMPLICATED UTI: urine culture : Ecoli, sensitivity pending IV zosyn D/amanda started on IV rocephin will follow sensitivity /plan to change to oral abx once result is obtained DISPOSITION ; plan to d/c home tomorrow Admission and Anticipated Discharge Date Admission Date: October 09, 2019 Subjective afebrile no complain of flank pain , no nausea had headache since 1 hrs , getting relief with Tylenol hx of Migrane headache , does not feel this is like her typical migraine headache refuses to try Imitrex willing for trial of Toradol no cough , no SOB , no fever or chills Review of Systems Review of Systems: All systems reviewed & are unremarkable except as noted in HPI & below Constitutional: no fever, no fatigue and no anorexia Respiratory: no cough, no dyspnea, no pain with cough and no wheezing Gastrointestinal: no abdominal pain, no nausea and no vomiting Genitourinary: no dysuria, no difficulty urinating, no urinary frequency, no urinary hesitancy and no flank pain Physical Exam Constitutional: WD/WN, vitals as above no acute distress Eyes: PERRL, conjunctivae normal, anicteric sclerae ENMT: external ear and nose normal, oropharynx normal Neck: trachea midline, no thyromegaly Respiratory: normal respiratory effort, lungs clear to auscultation Cardiovascular: RRR, no murmur, no edema Gastrointestinal (Abdomen): normal bowel sounds, soft, nontender, no hepatosplenomegaly Musculoskeletal: no cyanosis or clubbing, extremities motor strength 5/5 Skin: no rashes, warm and dry Neurologic: PERRL, EOMI, accommodation nl, no face palsy, no dysarthria Psychiatric: A+Ox3, euthymic affect Results & Data Results & Data ([facility]) Vital Signs (Past 12 Hours) Vital Signs Temp Pulse Pulse Resp BP Pulse Ox 10/10/19 15:28 37.6 C H 87 18 110/55 L 91 10/10/19 12:15 37.8 C H 10/10/19 11:13 38.1 C H 74 18 112/50 L 98 10/10/19 07:40 61 10/10/19 07:22 36.7 C 62 18 115/64 93
[2019-10-10] MEDS ORDERED: SUMAtriptan succinate 50 MG TAB PO PRN (16:53)
[2019-10-10] MEDS ORDERED: KETOROLAC TROMETHAMINE 15 MG/ML VIAL IV ONE (17:09)
[2019-10-10] MEDS ORDERED: cefTRIAXone SODIUM 2,000 MG in DEXTROSE 5% 50 ML IV SCH (17:30)
[2019-10-10] MEDS: VERAPAMIL HCL 240 MG TABCR PO SCH (20:50)
[2019-10-10] MEDS: TRAZODONE HCL 100 MG TAB PO SCH (20:51)
[2019-10-10] MEDS: NORTRIPTYLINE HCL 25 MG CAP PO SCH (20:51)
[2019-10-10] MEDS: ATORVASTATIN 40 MG TAB PO SCH (20:52)
[2019-10-10] MEDS ORDERED: KETOROLAC TROMETHAMINE 15 MG/ML VIAL IV PRN (23:00)
[2019-10-11] MEDS: ACETAMINOPHEN 325 MG TAB PO PRN ×2 (03:08→09:07)
[2019-10-11] MEDS: INSULIN ASPART 100 UNITS/ML 3 ML PEN SC SCH ×2 (09:00→13:02)
[2019-10-11] MEDS: ASPIRIN 81 MG ECTAB PO SCH (09:01)
[2019-10-11] MEDS: OXYBUTYNIN CHLORIDE 5 MG TAB PO SCH (09:01)
[2019-10-11] MEDS: LOSARTAN POTASSIUM 25 MG TAB PO SCH (09:01)
[2019-10-11] MEDS: PANTOprazole 40 MG TAB PO SCH (09:02)
[2019-10-11] MEDS: BuPROPion SR 150 MG TABCR PO SCH (09:02)
--- NOTE | 2019-10-11 11:52 | Urology Progress Note ---
Date of Service October 11, 2019 Assessment & Plan (1) Acute pyelonephritis: right complicated uti likely a pyelonephritis but the stranding around the kidney is not impressive on the ct scan. I do not see a distal ureteral stone and her bladder symptoms do not suggest one but the ureteral dilation is moderate not mild. Her right flank pain has resolved so perhaps she passed a stone prior to ct scan. she continues to imprve impressively quickly. Afebrile for 24 hours. her urine culture is growing only a levy sensitive e coli. If no fevers rest of today I suggest discharge this evening on 7 more days of bactrim twice daily. Present on Admission?: Yes Subjective patient sitting up at bedside eating lunch. She feels stronger. her right flank pain has not returned. She has a headache and just took imitrex for it. No nausea or emesis. No fevers since yesterday at 11am (24 hrs). Making good amounts of urine. Review of Systems Review of Systems: + headache, mild fatigue, appetite good, no chills, no fevers, no chest pain, no cough no SOB Physical Exam Physical Exam: gen- sitting up in bed, looks tired, eating well. skin color normal. not sweating. Results & Data Vital Signs (Past 12 Hours) Vital Signs Temp Pulse Resp BP Pulse Ox 10/11/19 09:00 145/69 H 10/11/19 08:00 36.9 C 64 18 103/66 96
[2019-10-11] MEDS ORDERED: SULFAMETHOXAZOLE/TRIMETHOPRIM DS 800/160MG TAB PO SCH (15:00)
--- NOTE | 2019-10-11 15:39 | Discharge Summary ---
Date of Service October 11, 2019 Admission HPI Per Admitting Provider DICTATED BY: Francisco Larson MD DATE OF ADMISSION: 10/09/2019 CHIEF COMPLAINT: Fever. HISTORY OF PRESENT ILLNESS: This is a 74-year-old female with past medical history significant for type 2 diabetes, not on any medications, hyperlipidemia, hypertension, history of esophageal stricture, history of pyelonephritis, left ureteral calculus, history of spondylolisthesis of lumbar region, status post left hip replacement, migraines, normocytic anemia, history of sepsis due to Pseudomonas with acute organ dysfunction, history of recurrent major depression, generalized anxiety disorder, persistent insomnia who lives at home with her and comes with fever. The patient says she has fever for the last 4 days and also has some cough, and brings up whitish phlegm since the last 4 days. She is not getting better, so she came to the ER and she also complains of lower back pain on right side, her hip pain got worse . She has a history of recurrent UTI with renal calculi in March with moderate left hydronephrosis at that time. She was at that time status post left hip replacement and cultures grew MSSA. Today in the ER, UA was positive and she was spiking temperature, white count of 10.9 and CAT scan showing mild right hydronephrosis and hydroureter. No ureteral calculus identified, possible passed right-sided calculus. The patient currently seems to be resting comfortably. Has some headaches. She has chronic migraines. Denies any blurred vision, no earache, no runny nose, no sore throat, no difficulty swallowing. Appetite is okay. Difficulty sleeping in the last couple of days because of low back pain. Denies any chest pain, no shortness of breath, no nausea, no abdominal pain, no diarrhea or constipation, no blood in stools or black stools. Has frequent urination. Denies any hematuria or burning micturition, no rash. Principal Diagnosis COMPLICATED UTI Discharge Exam Constitutional WD/WN, vitals as above no acute distress Eyes PERRL, conjunctivae normal, anicteric sclerae ENMT external ear and nose normal, oropharynx normal Neck trachea midline, no thyromegaly Respiratory normal respiratory effort, lungs clear to auscultation Cardiovascular RRR, no murmur, no edema Gastrointestinal (Abdomen) normal bowel sounds, soft, nontender, no hepatosplenomegaly Musculoskeletal no cyanosis or clubbing, extremities motor strength 5/5 Skin no rashes, warm and dry Neurologic PERRL, EOMI, accommodation nl, no face palsy, no dysarthria Psychiatric A+Ox3, euthymic affect Discharge Data Allergies Allergy/AdvReac Type Severity Reaction Status Date / Time pregabalin Allergy Intermediate SEVERE Verified 10/09/19 18:27 EDEMA FROM KNEES TO FEET Consultations 10/09/19 18:55 ED Decision to Admit Stat 10/09/19 19:57 Consult Urology Routine Ordered Studies 10/09/19 17:02 CT abd pelvis wo con Stat Hospital Course (1) Acute pyelonephritis: admitted fever , rt flank pain hx of renal stone in past symptoms has resolved, no fever or chills Rt sided flank pain has resolved CT abdomen /pelvis non contrast : Mild right hydronephrosis and hydroureter. No ureteral calculi identified although distal ureter obscured by streak artifact from bilateral hip arthroplasties. Differential considerations include a recently passed right- sided calculus, an infectious process or less likely a small occult distal right ureteral calculus. Differential considerations include a recently passed right- sided calculus, an infectious process or less likely a small occult distal right ureteral calculus. no evidence of sepsis appreciate input from Urology possible passage of stone no urological intervention needed COMPLICATED UTI: urine culture : Ecoli, levy sensitive will be discharged home with 7 days of Bactrim DS BID DISPOSITION ; D/c Home today Total Time Total Time Spent Total Time Spent (In Minutes): 30 mins Total Time Includes: Discharge Planning and Medication Reconciliation Discharge Plan Discharge Items Patient Disposition: Home - Self-Care Reason For Visit: UTI Discharge Diagnosis: COMPLICATED UTI Condition on Discharge: Good Activity: Resume your previous activity Non-emergency contact: Primary Care Provider Call non-emergency contact if: you have any medication questions Follow-up/Referrals: Feliciano Steen MD [Primary Care Provider] - 10/18/19 10:45 am (please note that your previous appointment on 10/13 has changed time to 10:45) Diet: Carb Consistent or DM2 and Heart Healthy Addtl Attending Provider Instructions: COMPLETE ANTIBIOTIC BACTRIM DS 1 TABLET TWICE DAILY FOR 7 DAYS -FOR URINARY TRACT INFECTION Pending Studies at Discharge: No Stand-Alone Forms: My [employer], Smoking Cessation Medications and DC Order Prescriptions: New sulfamethoxazole-trimethoprim 800-160 mg Tablet 1 tab PO BID 5 Days Qty: 10 RF: 0 Continued atorvastatin [Lipitor] 40 mg tablet 40 mg PO HS RF: 0 bupropion HCl 150 mg tablet sustained-release 12 hr 150 mg PO BID RF: 0 meloxicam [Mobic] 15 mg tablet 15 mg PO QAM RF: 0 sumatriptan succinate [Imitrex] 50 mg Tablet 50 mg PO UD PRN (Reason: Migraine Headache) RF: 0 nortriptyline [Pamelor] 25 mg capsule 50 mg PO HS RF: 0 trazodone 100 mg tablet 100 mg PO HS RF: 0 omeprazole 20 mg capsule,delayed release(DR/EC) 20 mg PO QAM RF: 0 verapamil [Calan SR] 240 mg tablet extended release 240 mg PO HS RF: 0 losartan [Cozaar] 25 mg tablet 25 mg PO QAM RF: 0 oxybutynin chloride 5 mg tablet 5 mg PO QAM RF: 0 aspirin [Aspir-81] 81 mg Tablet,Delayed Release (Dr/Ec) 81 mg PO DAILY RF: 0 Discharge Orders: Discharge Order (Routine); Ordered 10/11/19 Ordered By: Chinyere Cueva Admission Data Admit Date/Time: 10/09/19 19:22 Attending Provider: Chinyere Cueva Admit Provider: Francisco Larson Primary Care Provider: Feliciano Steen Other Providers: Francisco Larson ; Amy Bridges
== END 2019-10-11 16:22 | disposition home or self-care (01) | DRG 690 ==
LOC: ED 16:43 → 2W 19:22

== ENCOUNTER 2020-04-14 09:31 | Inpatient (IN) ==
[2020-04-14] MEDS ORDERED: cefTRIAXone SODIUM 1,000 MG/50 ML BAG IV STA (09:43)
[2020-04-14] MEDS ORDERED: ONDANSETRON INJ 2 MG/ML 2 ML VIAL IV STA (09:43)
[2020-04-14] MEDS ORDERED: SODIUM CHLORIDE 0.9% 1000ML 1,000 ML IV ONE (09:43)
[2020-04-14] MEDS ORDERED: ACETAMINOPHEN 500 MG TAB PO STA (09:45)
[2020-04-14] MEDS ORDERED: IOVERSOL 100ml IV ONE (09:49)
[2020-04-14 09:56] LABS: Appearance Urine Cloudy (Clear); Bacteria Urine Automated 4+ (Negative); Bilirubin Urine Negative (Negative); Blood Urine 2+ (Negative); Color Urine Yellow; Glucose Urine UA Negative (Negative); Ketones Urine Negative (Negative); Leukocyte Esterase Urine 3+ (Negative); Nitrite Urine Negative (Negative); Specific Gravity Urine 1.014 (1.000-1.030); Urobilinogen Urine Negative (Negative); WBC Urine Automated >30 /hpf (0-5); pH Urine 8.5 (4.5-7.5)
--- NOTE | 2020-04-14 10:02 | Emergency Department Note ---
Impression & Plan Acute pyelonephritis, Fever, Hydronephrosis, Acute alteration in mental status ED Provider Note NAME: EDWARDO BOJORQUEZ AGE: 74 SEX: F : 1945 ARRIVES VIA: Walk-In INFORMANT: Patient, the patient's daughter ED PROVIDER(S): Brian Guerrero DO CHIEF COMPLAINT: Dysuria and frequency. HPI: The patient is a 74-year-old female who presented to the emergency department for an evaluation of fever altered mental status and urinary frequ ency. Patient started having the symptoms last evening. She has been experiencing chills. She does have a history of urinary tract infection in the past. She has a history of hydronephrosis. She was seen in our facility in March for similar complaints. At that time she was treated and was feeling much better on subsequent follow-up. She is not seen her family doctor today. She has had no vomiting but does complain of nausea. She complains of right flank pain. She did not take any medication for fever prior to arrival. Her daughter states that she is very concerned because her mother appears to be "confused and off". She has had to stop to urinate multiple times and even had urinary incontinence. She denies having any lower extremity swelling but does complain of generalized muscle aches. The patient used to have a urologist however the urologist moved away and the patient no longer has a primary urologist. She had a stent in the kidney at one time but this is since been removed. ROS: See above HPI for pertinent positives & negatives. A total of 10 systems reviewed and were otherwise negative. PAST MEDICAL HISTORY: See Below PAST SURGICAL HISTORY: See Below FAMILY HISTORY: See Below SOCIAL HISTORY: See Below HOME MEDICATIONS: See Below ALLERGIES: See Below VITALS: See Below PHYSICAL EXAMINATION: GENERAL: The patient is awake and alert. She is somewhat anxious appearing but does not appear to be uncomfortable. EYES: The conjunctivae are clear. The pupils are round and reactive. EARS, NOSE, MOUTH AND THROAT: The nose is without any evidence of any deformity. Mucous membranes are dry. NECK: The neck is nontender and supple. RESPIRATORY: Normal respiratory effort is noted there is no evidence of wheezing rhonchi or rales CARDIOVASCULAR: Regular rate and rhythm noted there no murmurs rubs or gallops normal S1 normal S2. GASTROINTESTINAL: The abdomen is soft. Abdomen is nontender. BACK: No midline tenderness was noted. Right CVA tenderness was noted to percussion. Range of motion appears intact. MUSCULOSKELETAL/EXTREMITIES: There is no evidence of gross deformity full range of motion is noted in the hips and shoulders. SKIN: There is no obvious evidence of any rash. Trace pedal edema was noted bilaterally. NEUROLOGIC: Patient is oriented to person place and situation. Patellar tendon reflexes were 2+ bilaterally. MEDICAL DECISION MAKING: The patient is a 74-year-old female who presented to the emergency department for an evaluation of altered mental status and fever. The patient also had urinary tract symptoms. She has a history of hydronephrosis in the past. She does not currently have a stent. The patient's history and physical exam appear to be consistent with significant infection. For this reason she was treated with IV fluids and IV antibiotics upon arrival. Blood cultures and other laboratory studies were obtained. I discussed the patient's laboratory and radiographic studies with her and her daughter. Given her findings I do feel the patient may require inpatient management to further evaluate the cause of her symptoms as well as discuss the possibility that she may have an anatomic cause for her pyelonephritis. I discussed her case with the [facility]. They will evaluate the patient in the emergency department for f urther management and disposition. Triage Nursing notes reviewed. Prior medical records reviewed Vital Signs: reviewed and remarkable for elevated blood pressure Differential diagnosis: Infection, dehydration, metabolic abnormality, hypo/hyperglycemia, electrolyte disturbance, anemia, hypoxia, cardiac sources, intracerebral event, toxicologic, neurologic, as well as other pathologies. ER treatment provided: See below Diagnostics interpreted by me: ECG: EKG was obtained in the emergency department. My interpretation is normal sinus rhythm at 98 bpm. PVCs were noted. Inferior Q waves with an incomplete right bundle branch block pattern was noted. This was compared to a tracing from March 19, 2020. The ectopy noted today is new compared to the earlier tracing. Otherwise no significant changes are noted. Cardiac Monitoring: An order was placed for continuous cardiac monitoring. The monitor shows a rate of 115 bpm with sinus tachycardia rhythm. Laboratory studies: As stated above and show below. Imaging studies: See below Consultation(s): 1140: I discussed this case with Dr. Cueva Past Med/Surg History Medical History Anxiety Depression Diabetes mellitus type 2, diet-controlled Dyslipidemia Esophageal stricture HTN (hypertension) Migraine Ureteral stone with hydronephrosis Surgical History H/O bladder repair surgery H/O repair of left rotator cuff H/O: hysterectomy History of back surgery History of cataract surgery History of cataract surgery History of hip replacement left and right History of nasal surgery History of total left hip arthroplasty Previous back surgery S/P TYLER (total abdominal hysterectomy) Family History Brother Myocardial infarction, Onset Age: 46 Fatal Mother Parkinson's disease Father Multiple sclerosis Social History Smoking Status: Never smoker Second Hand Exposure: No; Hx Alcohol Use: No Hx Substance Use: No Preferred Language: Occitan Communication Ability: Effective Signals Collection Technician Required: No Beliefs That Will Affect Care: None Current Living Situation: Spouse Current Living Situation Comment: Home with spouse Feels Safe at Home: Yes Assistive Devices: None Allergies Allergies Allergy/AdvReac Type Severity Reaction Status Date / Time pregabalin Allergy Severe Edema Verified 04/14/20 10:08 Home Meds Home Medications Medication Instructions Recorded Confirmed atorvastatin [Lipitor] 40 mg PO HS 09/01/18 04/14/20 bupropion HCl 150 mg PO BID 09/01/18 04/14/20 meloxicam [Mobic] 15 mg PO QAM 09/01/18 04/14/20 nortriptyline [Pamelor] 25 mg PO HS 09/01/18 04/14/20 omeprazole 20 mg PO QAM 09/01/18 04/14/20 sumatriptan succinate [Imitrex] 50 mg PO DIRECTED PRN 09/01/18 04/14/20 trazodone 100 mg PO HS 09/01/18 04/14/20 verapamil [Calan SR] 240 mg PO HS 09/01/18 04/14/20 losartan [Cozaar] 25 mg PO QAM 03/23/19 04/14/20 oxybutynin chloride 5 mg PO QAM 03/19/20 04/14/20 aspirin [Aspirin Low-Strength] 81 mg PO DAILY 10/10/20 10/10/20 Previous Rx's Medication Instructions Recorded Saccharomyces boulardii [Florastor] 250 mg PO BID #20 cap 03/19/20 Results & Data (ED) Vital Signs Vital Signs - 24 hr 04/14/20 09:34 04/14/20 10:37 04/14/20 11:29 Temperature 38.1 C H 37.1 C Temperature Source Oral Oral Pulse Rate 104 H Pulse Rate [Finger] 110 H Pulse Rhythm Regular Pulse Strength Normal Respiratory Rate 22 18 Respiratory Effort / Characteristics Non-Labored Spontaneous Respiratory Depth Normal Respiratory Pattern Regular Blood Pressure 173/69 H Blood Pressure [Right Arm] 183/91 H Blood Pressure Mean 103 Blood Pressure Mean [Right Arm] 121 Blood Pressure Position Sitting Pulse Oximetry 92 97 Oxygen Delivery Method Room Air Sepsis Recent Fever Within 48 Hours Yes Sepsis New/Unexplained Change in Mental Status No Sepsis Action Taken by Nursing No Action Required Home Medications Current Medication List: was personally reviewed by me Laboratory Data Attestation: I reviewed the patient's lab results. Result diagrams: 04/14/20 09:10 04/14/20 09:10 Lab Results 04/14/20 04/14/20 04/14/20 Range/Units 09:10 09:10 09:10 WBC 15.14 H (4.8-10.8) K/uL RBC 4.22 (4.2-5.4) M/uL Hgb 12.7 (12.0-16.0) g/dL POC Hgb (12.0-16.0) g/dl Hct 38.4 (37-47) % POC Hct (37-47) % MCV 91.0 (80-100) fL MCH 30.1 (25-34) pg MCHC 33.1 (32-36) g/dL RDW Std Deviation 45.5 (36.4-46.3) fL RDW Coeff of Cristel 13.7 (11.5-14.5) % Plt Count 149 (130-400) K/uL MPV 9.6 (7.4-10.4) fL Immature Gran % (Auto) 0.3 % Neut % (Auto) 87.0 % Lymph % (Auto) 5.4 % Forrest % (Auto) 7.1 % Eos % (Auto) 0.1 % Baso % (Auto) 0.1 % Neut # (Auto) 13.18 H (1.4-6.5) K/uL Lymph # (Auto) 0.82 L (1.2-3.4) K/uL Forrest # (Auto) 1.07 H (0.11-0.59) K/uL Eos # (Auto) 0.02 (0-0.5) K/uL Baso # (Auto) 0.01 (0-0.2) K/uL Immature Gran # (Auto) 0.04 H (0.00-0.02) K/uL ESR 25 H (0-21) mm/hr PT 10.6 (9.0-12.0) Seconds INR 1.0 (0.9-1.1) APTT 26.8 (21.0-31.0) Seconds PTT Ratio 1.0 POC Sodium (135-144) mmol/L Sodium (136-145) mmol/L POC Potassium (3.3-5.0) mmol/L Potassium (3.5-5.1) mmol/L POC Chloride (101-112) mmol/L Chloride (98-107) mmol/L Carbon Dioxide (21-32) mmol/L POC Total CO2 (24-31) mmol/L Anion Gap (3-11) POC Anion Gap (16-25) mmol/L POC BUN (7-18) mg/dl BUN (7-18) mg/dl Creatinine (0.6-1.2) mg/dl POC Creatinine (0.6-1.3) mg/dl Est Cr Clr Drug Dosing ml/min Est GFR ( Amer) Est GFR (Non-Af Amer) BUN/Creatinine Ratio (10-20) Glucose (70-99) mg/dl POC Glucose (other) (70-99) mg/dl Calcium (8.5-10.1) mg/dl POC Ioniz Calcium Marilu (1.12-1.32) mmol/l Total Bilirubin (0.2-1) mg/dl AST (15-37) U/L ALT (12-78) U/L Alkaline Phosphatase (45-117) U/L Troponin I (0-0.045) ng/ml C-Reactive Protein (0-0.29) mg/dl Total Protein (6.4-8.2) gm/dl Albumin (3.4-5.0) gm/dl Globulin (2.5-4.0) gm/dl Albumin/Globulin Ratio (0.9-2) Procalcitonin (0-0.5) ng/ml Urine Color Urine Appearance (Clear) Urine pH (4.5-7.5) Ur Specific Bernie (1.000-1.030) Urine Protein (Negative) Urine Glucose (UA) (Negative) Urine Ketones (Negative) Urine Blood (Negative) Urine Nitrite (Negative) Urine Bilirubin (Negative) Urine Urobilinogen (Negative) Ur Leukocyte Esterase (Negative) Urine WBC (Auto) (0-5) /hpf Urine RBC (Auto) (0-4) /hpf U Hyaline Cast (Auto) (0-5) /lpf U Epithel Cells (Auto) (0-5) /lpf Urine Bacteria (Auto) (Negative) 04/14/20 04/14/20 04/14/20 Range/Units 09:10 09:10 09:44 WBC (4.8-10.8) K/uL RBC (4.2-5.4) M/uL Hgb (12.0-16.0) g/dL POC Hgb (12.0-16.0) g/dl Hct (37-47) % POC Hct (37-47) % MCV (80-100) fL MCH (25-34) pg MCHC (32-36) g/dL RDW Std Deviation (36.4-46.3) fL RDW Coeff of Cristel (11.5-14.5) % Plt Count (130-400) K/uL MPV (7.4-10.4) fL Immature Gran % (Auto) % Neut % (Auto) % Lymph % (Auto) % Forrest % (Auto) % Eos % (Auto) % Baso % (Auto) % Neut # (Auto) (1.4-6.5) K/uL Lymph # (Auto) (1.2-3.4) K/uL Forrest # (Auto) (0.11-0.59) K/uL Eos # (Auto) (0-0.5) K/uL Baso # (Auto) (0-0.2) K/uL Immature Gran # (Auto) (0.00-0.02) K/uL ESR (0-21) mm/hr PT (9.0-12.0) Seconds INR (0.9-1.1) APTT (21.0-31.0) Seconds PTT Ratio POC Sodium (135-144) mmol/L Sodium 135 L (136-145) mmol/L POC Potassium (3.3-5.0) mmol/L Potassium 4.3 (3.5-5.1) mmol/L POC Chloride (101-112) mmol/L Chloride 105 (98-107) mmol/L Carbon Dioxide 24 (21-32) mmol/L POC Total CO2 (24-31) mmol/L Anion Gap 5.0 (3-11) POC Anion Gap (16-25) mmol/L POC BUN (7-18) mg/dl BUN 19 H (7-18) mg/dl Creatinine 1.27 H (0.6-1.2) mg/dl POC Creatinine (0.6-1.3) mg/dl Est Cr Clr Drug Dosing 35.0 ml/min Est GFR ( Amer) 48.1 Est GFR (Non-Af Amer) 41.5 BUN/Creatinine Ratio 14.6 (10-20) Glucose 188 H (70-99) mg/dl POC Glucose (other) (70-99) mg/dl Calcium 8.8 (8.5-10.1) mg/dl POC Ioniz Calcium Marilu (1.12-1.32) mmol/l Total Bilirubin 0.4 (0.2-1) mg/dl AST 14 L (15-37) U/L ALT 22 (12-78) U/L Alkaline Phosphatase 116 (45-117) U/L Troponin I < 0.015 (0-0.045) ng/ml C-Reactive Protein 6.69 H (0-0.29) mg/dl Total Protein 7.2 (6.4-8.2) gm/dl Albumin 3.4 (3.4-5.0) gm/dl Globulin 3.8 (2.5-4.0) gm/dl Albumin/Globulin Ratio 0.9 (0.9-2) Procalcitonin 0.25 (0-0.5) ng/ml Urine Color Yellow Urine Appearance Cloudy A (Clear) Urine pH 8.5 H (4.5-7.5) Ur Specific Bernie 1.014 (1.000-1.030) Urine Protein 1+ H (Negative) Urine Glucose (UA) Negative (Negative) Urine Ketones Negative (Negative) Urine Blood 2+ H (Negative) Urine Nitrite Negative (Negative) Urine Bilirubin Negative (Negative) Urine Urobilinogen Negative (Negative) Ur Leukocyte Esterase 3+ H (Negative) Urine WBC (Auto) >30 H (0-5) /hpf Urine RBC (Auto) 10-30 H (0-4) /hpf U Hyaline Cast (Auto) 1-5 (0-5) /lpf U Epithel Cells (Auto) 10-20 H (0-5) /lpf Urine Bacteria (Auto) 4+ H (Negative) 04/14/20 Range/Units 10:01 WBC (4.8-10.8) K/uL RBC (4.2-5.4) M/uL Hgb (12.0-16.0) g/dL POC Hgb 13.6 (12.0-16.0) g/dl Hct (37-47) % POC Hct 40 (37-47) % MCV (80-100) fL MCH (25-34) pg MCHC (32-36) g/dL RDW Std Deviation (36.4-46.3) fL RDW Coeff of Cristel (11.5-14.5) % Plt Count (130-400) K/uL MPV (7.4-10.4) fL Immature Gran % (Auto) % Neut % (Auto) % Lymph % (Auto) % Forrest % (Auto) % Eos % (Auto) % Baso % (Auto) % Neut # (Auto) (1.4-6.5) K/uL Lymph # (Auto) (1.2-3.4) K/uL Forrest # (Auto) (0.11-0.59) K/uL Eos # (Auto) (0-0.5) K/uL Baso # (Auto) (0-0.2) K/uL Immature Gran # (Auto) (0.00-0.02) K/uL ESR (0-21) mm/hr PT (9.0-12.0) Seconds INR (0.9-1.1) APTT (21.0-31.0) Seconds PTT Ratio POC Sodium 135 (135-144) mmol/L Sodium (136-145) mmol/L POC Potassium 4.3 (3.3-5.0) mmol/L Potassium (3.5-5.1) mmol/L POC Chloride 103 (101-112) mmol/L Chloride (98-107) mmol/L Carbon Dioxide (21-32) mmol/L POC Total CO2 20 L (24-31) mmol/L Anion Gap (3-11) POC Anion Gap 18.0 (16-25) mmol/L POC BUN 18 (7-18) mg/dl BUN (7-18) mg/dl Creatinine (0.6-1.2) mg/dl POC Creatinine 1.0 (0.6-1.3) mg/dl Est Cr Clr Drug Dosing ml/min Est GFR ( Amer) Est GFR (Non-Af Amer) BUN/Creatinine Ratio (10-20) Glucose (70-99) mg/dl POC Glucose (other) 186 H (70-99) mg/dl Calcium (8.5-10.1) mg/dl POC Ioniz Calcium Marilu 1.15 (1.12-1.32) mmol/l Total Bilirubin (0.2-1) mg/dl AST (15-37) U/L ALT (12-78) U/L Alkaline Phosphatase (45-117) U/L Troponin I (0-0.045) ng/ml C-Reactive Protein (0-0.29) mg/dl Total Protein (6.4-8.2) gm/dl Albumin (3.4-5.0) gm/dl Globulin (2.5-4.0) gm/dl Albumin/Globulin Ratio (0.9-2) Procalcitonin (0-0.5) ng/ml Urine Color Urine Appearance (Clear) Urine pH (4.5-7.5) Ur Specific Bernie (1.000-1.030) Urine Protein (Negative) Urine Glucose (UA) (Negative) Urine Ketones (Negative) Urine Blood (Negative) Urine Nitrite (Negative) Urine Bilirubin (Negative) Urine Urobilinogen (Negative) Ur Leukocyte Esterase (Negative) Urine WBC (Auto) (0-5) /hpf Urine RBC (Auto) (0-4) /hpf U Hyaline Cast (Auto) (0-5) /lpf U Epithel Cells (Auto) (0-5) /lpf Urine Bacteria (Auto) (Negative) Administered Medications Discontinued Medications Acetaminophen (Acetaminophen 500 Mg Tab) 1,000 mg PO NOW STA Stop: 04/14/20 09:46 Last Admin: 04/14/20 10:17 Dose: 1,000 mg Documented by: [id number] Ceftriaxone Sodium (Rocephin) 1,000 mg in 50 mls @ 100 mls/hr IV NOW STA Stop: 04/14/20 10:12 Last Infusion: 04/14/20 10:57 Dose: 0 mls/hr Documented by: [id number] Admin: 04/14/20 10:16 Dose: 100 mls/hr Documented by: [id number] Sodium Chloride (Nss 1000ml) 1,000 mls @ 999 mls/hr IV .Q1H1M ONE Stop: 04/14/20 10:43 Last Admin: 04/14/20 10:17 Dose: 999 mls/hr Documented by: [id number] Ioversol (Ioversol 100ml) 93 ml IV ONCE ONE Stop: 04/14/20 09:50 Last Admin: 04/14/20 09:49 Dose: 93 ml Documented by: [id number] Ondansetron HCl (Ondansetron Inj 2 Mg/Ml 2 Ml Vial) 4 mg IV NOW STA Stop: 04/14/20 09:44 Last Admin: 04/14/20 10:17 Dose: 4 mg Documented by: [id number] Imaging Data Radiologist's Impression: Patient: EDWARDO BOJORQUEZ Admit Date: 04/14/20 MR#: [id number] Address1: [address] [place] [address] Acct ID:[id number] Address2: Date: 1945 [facility] Zip: [place] [id number] Age: 74 Location: ED Sex: F Room/Bed: Att Phy: Diagnosis: UTI Irma Phy: Feliciano Steen MD Service Date: 04/14/20 Fam Phy: Interpreting Phy: Emanuel Lacey MD Admit Phy: Ordering Phy: Brian Guerrero DO cc: ~ CT OF THE HEAD WITHOUT CONTRAST CLINICAL HISTORY: Altered mental status. COMPARISON STUDY: No previous studies for comparison. CT DOSE: 1970.87 mGy.cm TECHNIQUE: Helical axial images of the head were obtained without IV contrast. Automated exposure control was utilized for the study. A dose lowering technique was utilized adhering to the principles of ALARA. FINDINGS: No acute intracranial hemorrhage, midline shift or mass effect is present. The ventricular system is unremarkable. The basilar cisterns are patent. No extra-axial collections are present. There are no findings to suggest acute dural sinus thrombosis or acute territorial infarct. No significant calvarial abnormalities are present. Visualized portions of the sinuses and mastoid air cells are clear. IMPRESSION: No acute intracranial findings. ACT 112: Negative or not required by law. Electronically signed by: Emanuel Lacey M.D. 04/14/2020 11:18 AM Dictated: 04/14/201115 Transcribed: 04/14/201115 Patient: EDWARDO BOJORQUEZ Admit Date: 04/14/20 MR#: [id number] Address1: [address] [place] [address] [place] Acct ID:[id number] Address2: Date: 1945 [facility] Zip: [place] [address] Age: 74 Location: ED Sex: F Room/Bed: Att Phy: Diagnosis: UTI Irma Phy: Feliciano Steen MD Service Date: 04/14/20 [facility] Phy: Interpreting Phy: Emanuel Lacey MD Admit Phy: Ordering Phy: Brian Guerrero DO cc: ~ XR chest 1V portable CLINICAL HISTORY: fever COMPARISON STUDY: Chest radiograph January 24, 2020. FINDINGS: Anterior cervical spine fusion is noted. Patient is rotated. Cardiac size is normal. Allowing for rotation, mediastinal contours are unremarkable. There is no pneumothorax or pleural effusion. There is no consolidation or evidence for pulmonary edema. Linear right basilar opacity reflects subsegmental atelectasis. The appearance of the chest is unchanged. IMPRESSION: No acute cardiopulmonary findings. No change in appearance of the chest. ACT 112: Negative or not required by law. Electronically signed by: Emanuel Lacey M.D. 04/14/2020 10:07 AM Dictated: 04/14/201004 Transcribed: 04/14/201004 Patient: EDWARDO BOJORQUEZ Admit Date: 04/14/20 MR#: [id number] Address1: [address] [place] [address] [place] Acct ID:[id number] Address2: Date: 1945 [facility] Zip: [place] [address] Age: 74 Location: ED Sex: F Room/Bed: Att Phy: Diagnosis: UTI Irma Phy: Feliciano Steen MD Service Date: 04/14/20 Fam Phy: Interpreting Phy: Emanuel Lacey MD Admit Phy: Ordering Phy: Brian Guerrero DO cc: ~ CT OF THE ABDOMEN AND PELVIS WITH CONTRAST CLINICAL HISTORY: fever and UTI COMPARISON STUDY: CT of the abdomen and pelvis January 24, 2020. TECHNIQUE: Following IV administration of 93 mL of Optiray-320, axial images of the abdomen and pelvis were obtained from the lung bases to the proximal femurs. Images were reviewed in the axial, sagittal, and coronal planes. IV contrast was administered without complication. Automated exposure control was utilized for the study. A dose lowering technique was utilized adhering to the principles of ALARA. FINDINGS: Lung bases are unremarkable. No pneumatosis, free air or portal venous gas is present. Total and split megaly is unchanged. The liver, adrenal glands are unremarkable. There is pancreatic glandular atrophy. No biliary or pancreatic ductal dilatation is noted. No evidence for a bowel obstruction. There are postoperative findings within the spine with multilevel degenerative changes. Colonic diverticulosis is noted without evidence for acute diverticulitis. A moderate amount stool within the colon is noted. No bowel wall thickening is noted. Images of the pelvis are degraded by streak artifact from hip arthroplasties. There is moderate bladder wall thickening with adjacent infiltration. Mild right hydroureteronephrosis is noted. This was shown on prior exam. This has slightly decreased since prior exam. There is no left hydronephrosis. There is heterogeneity of the right kidney with multiple hypoenhancing foci. There is no renal abscess. There is thickening and enhancement of the right collecting system and ureter. There is mild right perinephric infiltration. No ureteral calculus is identified. IMPRESSION: 1. Heterogeneous enhancement of the right kidney with striated nephrogram, perinephric infiltration and urothelial thickening of the right collecting system and right ureter. Mild right hydroureteronephrosis, shown on prior exam. Given bladder wall thickening, the findings favor cystitis with ascending infectious process with right pyelonephritis. No ureteral calculi. No renal abscess. An occult obstructing distal right ureteral lesion is within the differential but considered less likely. 2. Moderate amount of stool within the colon. No bowel obstruction. ACT 112: Negative or not required by law. Electronically signed by: Emanuel Lacey M.D. 04/14/2020 11:33 AM Dictated: 04/14/20 1122 Transcribed: 04/14/201121 Blood Pressure Blood Pressure Findings: Elevated blood pressure Blood Pressure Disposition: further management by hospitalist Discharge Plan Visit Data Chief Complaint: Urinary Symptoms Stated Complaint: UTI ED Provider: Brian Guerrero Discharge Problem: Acute pyelonephritis, Fever, Hydronephrosis, Acute alteration in mental status Patient Disposition: Being Evaluated by Hospitalist Condition: Good Forms Stand Alone Forms: [facility] [place] Prescriptions Prescriptions: No Action atorvastatin [Lipitor] 40 mg tablet 40 mg PO HS RF: 0 bupropion HCl 150 mg tablet sustained-release 12 hr 150 mg PO BID RF: 0 meloxicam [Mobic] 15 mg tablet 15 mg PO QAM RF: 0 sumatriptan succinate [Imitrex] 50 mg Tablet 50 mg PO DIRECTED PRN (Reason: Migraine Headache) RF: 0 nortriptyline [Pamelor] 25 mg capsule 25 mg PO HS RF: 0 trazodone 100 mg tablet 100 mg PO HS RF: 0 omeprazole 20 mg capsule,delayed release(DR/EC) 20 mg PO QAM RF: 0 verapamil [Calan SR] 240 mg tablet extended release 240 mg PO HS RF: 0 losartan [Cozaar] 25 mg tablet 25 mg PO QAM RF: 0 oxybutynin chloride 5 mg tablet extended release 24hr 5 mg PO QAM RF: 0 Saccharomyces boulardii [Florastor] 250 mg capsule 250 mg PO BID Qty: 20 RF: 0 aspirin [Aspirin Low-Strength] 81 mg Tablet,Delayed Release (Dr/Ec) 81 mg PO DAILY RF: 0 Referrals Referrals: Feliciano Steen MD [Primary Care Provider] - Discharge Problem: Fever Qualifiers: Fever type: due to other condition Qualified Code(s): R50.81 - Fever presenting with conditions classified elsewhere Hydronephrosis Qualifiers: Hydronephrosis type: unspecified Qualified Code(s): N13.30 - Unspecified hydronephrosis
[2020-04-14 10:04] LABS: Protein Urine 1+ (Negative); Sulfosalicylic Acid Urine Positive (Negative)
[2020-04-14 10:08] LABS: Basophils # (auto) 0.01 K/uL (0-0.2); Basophils % (auto) 0.1 %; Eosinophils # (auto) 0.02 K/uL (0-0.5); Eosinophils % (auto) 0.1 %; Hematocrit (blood only) 38.4 % (37-47); Hemoglobin 12.7 g/dL (12.0-16.0); Immature Granulocytes # (auto) 0.04 K/uL (0.00-0.02); Immature Granulocytes % (auto) 0.3 %; Lymphocytes # (auto) 0.82 K/uL (1.2-3.4); Lymphocytes % (auto) 5.4 %; Mean Corpuscular Hemoglobin 30.1 pg (25-34); Mean Corpuscular Hgb Conc 33.1 g/dL (32-36); Mean Platelet Volume 9.6 fL (7.4-10.4); Monocytes # (auto) 1.07 K/uL (0.11-0.59); Monocytes % (auto) 7.1 %; Neutrophils # (auto) 13.18 K/uL (1.4-6.5); Platelet Count 149 K/uL (130-400); RDW Coefficient of Variation 13.7 % (11.5-14.5); RDW Standard Deviation 45.5 fL (36.4-46.3); Red Blood Count 4.22 M/uL (4.2-5.4); White Blood Count 15.14 K/uL (4.8-10.8)
--- NOTE | 2020-04-14 10:08 | XRay Report ---
XR chest 1V portable CLINICAL HISTORY: fever COMPARISON STUDY: Chest radiograph January 24, 2020. FINDINGS: Anterior cervical spine fusion is noted. Patient is rotated. Cardiac size is normal. Allowi ng for rotation, mediastinal contours are unremarkable. There is no pneumothorax or pleural effusion. There is no consolidation or evidence for pulmonary edema. Linear right basilar opacity reflects sub segmental atelectasis. The appearance of the chest is unchanged. IMPRESSION: No acute cardiopulmonary findings. No change in appearance of the chest. ACT 112: Negative or not required by law. Electronically signed by: Emanuel Lacey M.D. 04/14/2020 10:07 AM
[2020-04-14 10:14] LABS: iSTAT Hemoglobin 13.6 g/dl (12.0-16.0); iSTAT Ionized Calcium 1.15 mmol/l (1.12-1.32); iSTAT Potassium 4.3 mmol/L (3.3-5.0)
[2020-04-14 10:20] LABS: Partial Thromboplastin Time 26.8 Seconds (21.0-31.0); Prothrombin Time 10.6 Seconds (9.0-12.0)
[2020-04-14 10:24] LABS: Alanine Aminotransferase 22 U/L (12-78); Albumin Level 3.4 gm/dl (3.4-5.0); Aspartate Aminotransferase 14 U/L (15-37); BUN Creatinine Ratio 14.6 (10-20); Blood Urea Nitrogen 19 mg/dl (7-18); C Reactive Protein 6.69 mg/dl (0-0.29); Calcium 8.8 mg/dl (8.5-10.1); Carbon Dioxide 24 mmol/L (21-32); Chloride 105 mmol/L (98-107); Est GFR (African American) 48.1; Est GFR (Non-African American) 41.5; Glucose 188 mg/dl (70-99); Potassium 4.3 mmol/L (3.5-5.1); Sodium 135 mmol/L (136-145)
[2020-04-14 10:29] LABS: Albumin Globulin Ratio 0.9 (0.9-2); Alkaline Phosphatase 116 U/L (45-117); Bilirubin,Total 0.4 mg/dl (0.2-1); Globulin 3.8 gm/dl (2.5-4.0); Total Protein 7.2 gm/dl (6.4-8.2); Troponin I < 0.015 ng/ml (0-0.045)
--- NOTE | 2020-04-14 11:19 | CT Scan Report ---
CT OF THE HEAD WITHOUT CONTRAST CLINICAL HISTORY: Altered mental status. COMPARISON STUDY: No previous studies for comparison. CT DOSE: 1970.87 mGy.cm TECHNIQUE: Helical axial images of the head were obtained without IV contrast. Automated exposure con trol was utilized for the study. A dose lowering technique was utilized adhering to the principles o f ALARA. FINDINGS: No acute intracranial hemorrhage, midline shift or mass effect is present. The ventricular system is unremarkable. The basilar cisterns are patent. No extra-axial collections are present. Ther e are no findings to suggest acute dural sinus thrombosis or acute territorial infarct. No significan t calvarial abnormalities are present. Visualized portions of the sinuses and mastoid air cells are c lear. IMPRESSION: No acute intracranial findings. ACT 112: Negative or not required by law. Electronically signed by: Emanuel Lacey M.D. 04/14/2020 11:18 AM
--- NOTE | 2020-04-14 11:34 | CT Scan Report ---
CT OF THE ABDOMEN AND PELVIS WITH CONTRAST CLINICAL HISTORY: fever and UTI COMPARISON STUDY: CT of the abdomen and pelvis January 24, 2020. TECHNIQUE: Following IV administration of 93 mL of Optiray-320, axial images of the abdomen and pelvi s were obtained from the lung bases to the proximal femurs. Images were reviewed in the axial, sagitt al, and coronal planes. IV contrast was administered without complication. Automated exposure contro l was utilized for the study. A dose lowering technique was utilized adhering to the principles of A MORRO. FINDINGS: Lung bases are unremarkable. No pneumatosis, free air or portal venous gas is present. Tota l and split megaly is unchanged. The liver, adrenal glands are unremarkable. There is pancreatic glan dular atrophy. No biliary or pancreatic ductal dilatation is noted. No evidence for a bowel obstructi on. There are postoperative findings within the spine with multilevel degenerative changes. Colonic d iverticulosis is noted without evidence for acute diverticulitis. A moderate amount stool within the colon is noted. No bowel wall thickening is noted. Images of the pelvis are degraded by streak artifa ct from hip arthroplasties. There is moderate bladder wall thickening with adjacent infiltration. Mil d right hydroureteronephrosis is noted. This was shown on prior exam. This has slightly decreased sin ce prior exam. There is no left hydronephrosis. There is heterogeneity of the right kidney with multi ple hypoenhancing foci. There is no renal abscess. There is thickening and enhancement of the right c ollecting system and ureter. There is mild right perinephric infiltration. No ureteral calculus is id entified. IMPRESSION: 1. Heterogeneous enhancement of the right kidney with striated nephrogram, perinephric infiltration a nd urothelial thickening of the right collecting system and right ureter. Mild right hydroureteroneph rosis, shown on prior exam. Given bladder wall thickening, the findings favor cystitis with ascending infectious process with right pyelonephritis. No ureteral calculi. No renal abscess. An occult obstr ucting distal right ureteral lesion is within the differential but considered less likely. 2. Moderate amount of stool within the colon. No bowel obstruction. ACT 112: Negative or not required by law. Electronically signed by: Emaneul Lacey M.D. 04/14/2020 11:33 AM
[2020-04-14] MEDS ORDERED: ALUMINUM/MAGNESIUM SUSP 30 ML UDC PO PRN (12:04)
[2020-04-14] MEDS ORDERED: ONDANSETRON INJ 2 MG/ML 2 ML VIAL IV PRN (12:04)
[2020-04-14] MEDS ORDERED: MAGNESIUM HYDROXIDE SUSP 30 ML UDC PO PRN (12:04)
[2020-04-14] MEDS ORDERED: POLYETHYLENE (MIRALAX) 17 GM PACK PO PRN (12:04)
[2020-04-14] MEDS ORDERED: SODIUM CHLORIDE 0.9% 1000ML 1,000 ML IV SCH (12:15)
--- NOTE | 2020-04-14 12:15 | History & Physical Report ---
Date of Service April 14, 2020 Assessment & Plan (1) Acute pyelonephritis: Presents with fever, leukocytosis, UA grossly positive, Prior history of recurrent urinary tract infection, chronic right sided hydronephrosis CT abdomen pelvis as outlined above No evidence of sepsis Patient started with empiric IV antibiotic with Rocephin, ordered for urine culture, will follow report (2) Hydronephrosis: CT abdomen pelvis shows: . Heterogeneous enhancement of the right kidney with striated nephrogram, perinephric infiltration and urothelial thickening of the right collecting system and right ureter. Mild right hydroureteronephrosis, shown on prior exam. Given bladder wall thickening, the findings favor cystitis with ascending infectious process with right pyelonephritis. No ureteral calculi. No renal abscess. An occult obstructing distal right ureteral lesion is within the differential but considered less likely. Continue treatment for acute pyelonephritis as outlined above, urology consult requested Acute renal failure CKD stage III: Creatinine elevated from baseline, hold meloxicam, and losartan Avoid NSAIDs, contrast study Ordered for gentle IV fluids, repeat BMP in a.m. (3) Acute alteration in mental status: Possible metabolic encephalopathy secondary to infection/UTI/pyelonephritis, dehydration, acute renal failure CT head shows no acute change Mental status improved to approximate baseline Continue treatment of UTI and renal failure as outlined above After fall precaution, Caution for ing, CODE STATUS: Full code DVT prophylaxis: Subcu heparin Disposition: Expected to be discharged home when medically stable PT OT evaluation and social service consult for discharge planning will compare we will continue to follow this patient from tomorrow 04/15/2020 History of Present Illness Chief Complaint: Fever, confusion, right-sided flank pain Primary Care Provider: Feliciano Steen MD This is 74-year-old female, with past medical history of recurrent urinary tract infection, brought to ER by daughter, as patient started to spike a temperature since last night with chills and Rigor daughter noticed this morning pt appeared to be confused , unable to follow commands , putting her underpants on top of her trouser last night pt was totally alert and oriented per daughter -pt gets episodes of confusion with prior UTI's in the ER pt appeared to be back to her baseline mental status , able to answer questions appropriately , admits of feeling confused this AM pt Reports of having urinary urgency, frequency for past 2 days, denies of any dysuria , no blood in urine felt nauseous , no vomiting . complains of rt sided back /rt flank pain started since yesterday History of recurrent urinary tract infection, was admitted on October 2019 for complicated UTI, 2 ER visits on January 2020, and March 2020 with similar complain. In the ER patient was afebrile, had mild leukocytosis, UA grossly positive, CT abdomen pelvis showed right-sided hydro-. Tubular necrosis with right perinephric stranding suggestive of acute pyelonephritis Allergies Allergy/AdvReac Type Severity Reaction Status Date / Time pregabalin AdvReac Intermediate Edema Verified 04/14/20 13:30 Home Medications Home Medications Medication Instructions Recorded Confirmed Type atorvastatin [Lipitor] 40 mg PO HS 09/01/18 04/14/20 History bupropion HCl 150 mg PO BID 09/01/18 04/14/20 History meloxicam [Mobic] 15 mg PO QAM 09/01/18 04/14/20 History nortriptyline [Pamelor] 25 mg PO HS 09/01/18 04/14/20 History omeprazole 20 mg PO QAM 09/01/18 04/14/20 History sumatriptan succinate [Imitrex] 50 mg PO DIRECTED PRN 09/01/18 04/14/20 History trazodone 100 mg PO HS 09/01/18 04/14/20 History verapamil [Calan SR] 240 mg PO HS 09/01/18 04/14/20 History losartan [Cozaar] 25 mg PO QAM 03/23/19 04/14/20 History Saccharomyces boulardii [Florastor] 250 mg PO BID #20 cap 03/19/20 04/14/20 Rx oxybutynin chloride 5 mg PO QAM 03/19/20 04/14/20 History aspirin [Aspirin Low-Strength] 81 mg PO DAILY 04/14/20 04/14/20 History Past Med/Surg History Medical History Anxiety Depression Diabetes mellitus type 2, diet-controlled Dyslipidemia Esophageal stricture HTN (hypertension) Migraine Ureteral stone with hydronephrosis Surgical History H/O bladder repair surgery H/O repair of left rotator cuff H/O: hysterectomy History of back surgery History of cataract surgery History of cataract surgery History of hip replacement left and right History of nasal surgery History of total left hip arthroplasty Previous back surgery S/P TYLER (total abdominal hysterectomy) Family History Brother Myocardial infarction, Onset Age: 46 Fatal Mother Parkinson's disease Father Multiple sclerosis Social History Smoking Status: Never smoker Second Hand Exposure: No; Hx Alcohol Use: No Hx Substance Use: No Preferred Language: Romanian Communication Ability: Effective 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 Beliefs That Will Affect Care: None Current Living Situation: Spouse Current Living Situation Comment: Home with spouse Feels Safe at Home: Yes Assistive Devices: None Review of Systems Review of Systems: All systems reviewed & are unremarkable except as noted in HPI & below Constitutional: + fever and + chills Gastrointestinal: + nausea; no abdominal pain and no vomiting Genitourinary: as per Subjective / HPI, + urinary frequency and + urinary incontinence; no dysuria and no hematuria Physical Exam Constitutional: WD/WN, vitals as above no acute distress Eyes: PERRL, conjunctivae normal, anicteric sclerae ENMT: external ear and nose normal, oropharynx normal Neck: trachea midline, no thyromegaly Respiratory: normal respiratory effort, lungs clear to auscultation Cardiovascular: RRR, no murmur, no edema Gastrointestinal (Abdomen): Percussion/Palpation: abdomen soft; abdomen nontender right flank pain Musculoskeletal: no cyanosis or clubbing, extremities motor strength 5/5 Skin: no rashes, warm and dry Neurologic: PERRL, EOMI, accommodation nl, no face palsy, no dysarthria Psychiatric: A+Ox3, euthymic affect Results & Data Results & Data ([facility]) Vital Signs (Past 12 Hours) Vital Signs Temp Pulse Pulse Resp BP BP Pulse Ox 04/14/20 11:29 37.1 C 04/14/20 10:37 110 H 18 183/91 H 97 04/14/20 09:34 38.1 C H 104 H 22 173/[address] abdomen pelvis with contrast: IMPRESSION: 1. Heterogeneous enhancement of the right kidney with striated nephrogram, perinephric infiltration and urothelial thickening of the right collecting system and right ureter. Mild right hydroureteronephrosis, shown on prior exam. Given bladder wall thickening, the findings favor cystitis with ascending infectious process with right pyelonephritis. No ureteral calculi. No renal abscess. An occult obstructing distal right ureteral lesion is within the differential but considered less likely. 2. Moderate amount of stool within the colon. No bowel obstruction. Code Status & VTE Plan VTE Prophylaxis Plan VTE Prophylaxis will be ordered: Yes (1) Hydronephrosis Hydronephrosis type: unspecified Qualified Code(s): N13.30 - Unspecified hydronephrosis
--- NOTE | 2020-04-14 12:16 | Electrocardiogram Report ---
Test Reason : Blood Pressure : / mmHG Vent. Rate : 098 BPM Atrial Rate : 098 BPM P-R Int : 142 ms QRS Dur : 136 ms QT Int : 378 ms P-R-T Axes : 002 -64 003 degrees QTc Int : 482 ms Sinus rhythm with occasional Premature ventricular complexes Right bundle branch block Left anterior fascicular block Bifascicular block Cannot rule out Inferior infarct (masked by fascicular block?) , age undetermined Abnormal ECG When compared with ECG of 19-MAR-2020 21:26, Premature ventricular complexes are now Present Inverted T waves have replaced nonspecific T wave abnormality in Inferior leads Confirmed by Brian Connor ([id number]) on 04/14/2020 12:16:11 PM Referred By: REFERRED SELF Confirmed By:Brian Connor
[2020-04-14] MEDS ORDERED: LORazepam 0.5 MG/1 ML VIAL IV STA (12:55)
[2020-04-14] MEDS ORDERED: SUMAtriptan succinate 50 MG TAB PO PRN (13:50)
[2020-04-14] MEDS: HEPARIN SOD 5,000 UNIT/0.5 ML VIAL SQ SCH ×2 (14:11→20:37)
[2020-04-14 14:44] LABS: BUN Creatinine Ratio 14.7 (10-20); Calcium 8.1 mg/dl (8.5-10.1); Creatinine Clr Calc Pharmacy 40.7 ml/min; Est GFR (African American) 57.9; Potassium 4.4 mmol/L (3.5-5.1)
[2020-04-14] MEDS: ACETAMINOPHEN 325 MG TAB PO PRN ×2 (14:58→20:38)
--- NOTE | 2020-04-14 17:14 | Urology Consultation ---
Date of Consultation April 14, 2020 Assessment & Plan (1) Acute pyelonephritis: Patient presented with acute UTI with signs of pyelonephritis and AMS. On supportive care and abx with hydration and monitoring. Has tmax 38.1. Previous issues with severe UTI. Previous hospitalization. Has improved with hydration and support in past. Likely need 10-14 days of treatment. Should consider cystoscopy and ureteroscopy on right to assess for stricture, stone, or other issues. Likely need to consider catheterization if reflux causing pyelonephritis. Plan to monitor. Patient's complication med and surgical history was reviewed and summarized as above. All imaging was reviewed and interpreted by myself. Continue supportive care. Plan for outpatient followup. (2) Hydronephrosis: History of Present Illness Attending Physician: Chinyere Cueva MD History of Present Illness New consultation for patient with UTI/Pyelo, discomfort, and ill feelings. Patient developed sudden onset of pain into flank going down and radiating into groin and back in waves comes and goes. Can be severe at times. History of Pyelo and UTI. Previously seen by Dr. Bridges. Had similar episode in Spring. Discussed and reviewed patient's family history for any history of issues, infections, and disease. Also, discussed patient's medical/surgery history especially related to any history of urinary issues or stone disease. Patient was admitted and is undergoing observation with broad spectrum IV antibiotics. Allergies Allergy/AdvReac Type Severity Reaction Status Date / Time pregabalin AdvReac Intermediate Edema Verified 04/14/20 13:30 Home Medications Home Medications Medication Instructions Recorded Confirmed Type atorvastatin [Lipitor] 40 mg PO HS 09/01/18 04/14/20 History bupropion HCl 150 mg PO BID 09/01/18 04/14/20 History meloxicam [Mobic] 15 mg PO QAM 09/01/18 04/14/20 History nortriptyline [Pamelor] 25 mg PO HS 09/01/18 04/14/20 History omeprazole 20 mg PO QAM 09/01/18 04/14/20 History sumatriptan succinate [Imitrex] 50 mg PO DIRECTED PRN 09/01/18 04/14/20 History trazodone 100 mg PO HS 09/01/18 04/14/20 History verapamil [Calan SR] 240 mg PO HS 09/01/18 04/14/20 History losartan [Cozaar] 25 mg PO QAM 03/23/19 04/14/20 History Saccharomyces boulardii [Florastor] 250 mg PO BID #20 cap 03/19/20 04/14/20 Rx oxybutynin chloride 5 mg PO QAM 03/19/20 04/14/20 History aspirin [Aspirin Low-Strength] 81 mg PO DAILY 04/14/20 04/14/20 History Patient History Medical History Anxiety Depression Diabetes mellitus type 2, diet-controlled Dyslipidemia Esophageal stricture HTN (hypertension) Migraine Ureteral stone with hydronephrosis Surgical History H/O bladder repair surgery H/O repair of left rotator cuff H/O: hysterectomy History of back surgery History of cataract surgery History of cataract surgery History of hip replacement left and right History of nasal surgery History of total left hip arthroplasty Previous back surgery S/P TYLER (total abdominal hysterectomy) Family History Brother Myocardial infarction, Onset Age: 46 Fatal Mother Parkinson's disease Father Multiple sclerosis Social History Smoking Status: Never smoker Second Hand Exposure: No; Do You Dip or Chew Tobacco: No; Tobacco Cessation Education Requested by Patient: No Hx Alcohol Use: No Hx Substance Use: No Preferred Language: Armenian Communication Ability: Effective 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 Patient is well nourished and well kept. HEENT: Normocephalic Atraumatic. Inspection normal. Cranial Nerves 2-12 Grossly intact. Nares are clear. Neck is supple. Normal inspection of face. Normal inspection of neck. Neurologic: No deficits on inspection. Baseline for motor function and sensory. Psychologic: Normal affect. Respiratory: Nonlabored. No use of accessory muscles. No tachypnea or dyspnea. Cardiovascular: No tachycardia Skin: [place] and Dry. No rashes or visible lesions. Extremities: Moving without issues. No motor deficits on inspection Lymphatics: No edema Abdomen: Soft Non-distended. No acites. No rebound or guarding. Results & Data ([facility]) Vital Signs (Past 12 Hours) Vital Signs Temp Pulse Pulse Resp BP BP Pulse Ox 04/14/20 14:14 37.3 C 82 20 106/67 95 04/14/20 14:00 80 04/14/20 12:56 139/54 L 04/14/20 11:29 37.1 C 04/14/20 10:37 110 H 18 183/91 H 97 04/14/20 09:34 38.1 C H 104 H 22 173/69 H 92 PG Care Time/CCT Total # of Minutes Spent Total Time Spent with Patient: Total time spent is greater than 50% in coordination of care (as documented) at patient's floor/unit and/or counseling patient: Coding Level of Care Code 35324 Inpt Consult Level 5 Diagnoses Acute pyelonephritis N10 Hydronephrosis N13.30 Hydronephrosis type: unspecified (1) Hydronephrosis Hydronephrosis type: unspecified Qualified Code(s): N13.30 - Unspecified hydronephrosis
[2020-04-14] MEDS: traZODone HCL 100 MG TAB PO SCH (20:39)
[2020-04-14] MEDS: VERAPAMIL HCL 240 MG TABCR PO SCH (20:39)
[2020-04-14] MEDS: buPROPion SR 150 MG TABCR PO SCH (20:40)
[2020-04-14] MEDS: NORTRIPTYLINE HCL 25 MG CAP PO SCH (20:40)
[2020-04-14] MEDS: ATORVASTATIN 40 MG TAB PO SCH (20:40)
[2020-04-14] MEDS: SACCHAROMYCES BOULARDII 250 MG CAP PO SCH (20:40)
[2020-04-15] MEDS: HEPARIN SOD 5,000 UNIT/0.5 ML VIAL SQ SCH ×3 (06:20→20:44)
[2020-04-15 07:27] LABS: Basophils # (auto) 0.01 K/uL (0-0.2); Basophils % (auto) 0.1 %; Eosinophils # (auto) 0.01 K/uL (0-0.5); Eosinophils % (auto) 0.1 %; Hematocrit (blood only) 34.7 % (37-47); Hemoglobin 10.7 g/dL (12.0-16.0); Immature Granulocytes # (auto) 0.03 K/uL (0.00-0.02); Immature Granulocytes % (auto) 0.3 %; Lymphocytes # (auto) 1.16 K/uL (1.2-3.4); Lymphocytes % (auto) 10.8 %; Mean Corpuscular Hemoglobin 28.8 pg (25-34); Mean Corpuscular Hgb Conc 30.8 g/dL (32-36); Mean Corpuscular Volume 93.5 fL (80-100); Mean Platelet Volume 9.1 fL (7.4-10.4); Monocytes # (auto) 0.98 K/uL (0.11-0.59); Monocytes % (auto) 9.1 %; Neutrophils # (auto) 8.55 K/uL (1.4-6.5); Neutrophils % (auto) 79.6 %; Platelet Count 127 K/uL (130-400); Red Blood Count 3.71 M/uL (4.2-5.4); White Blood Count 10.74 K/uL (4.8-10.8)
[2020-04-15 07:59] LABS: BUN Creatinine Ratio 13.1 (10-20); Calcium 8.5 mg/dl (8.5-10.1); Creatinine Clr Calc Pharmacy 48.5 ml/min; Est GFR (African American) 58.6; Est GFR (Non-African American) 50.5; Potassium 4.4 mmol/L (3.5-5.1)
[2020-04-15] MEDS: ASPIRIN 81 MG ECTAB PO SCH (08:56)
[2020-04-15] MEDS: SACCHAROMYCES BOULARDII 250 MG CAP PO SCH ×2 (08:56→20:42)
[2020-04-15] MEDS: OXYBUTYNIN CHLORIDE XL 5 MG TABCR PO SCH (08:56)
[2020-04-15] MEDS: buPROPion SR 150 MG TABCR PO SCH ×2 (08:56→20:43)
[2020-04-15] MEDS: PANTOprazole 40 MG TAB PO SCH (08:56)
[2020-04-15] MEDS: ACETAMINOPHEN 325 MG TAB PO PRN ×2 (08:57→20:41)
[2020-04-15] MEDS: cefTRIAXone SODIUM 1,000 MG in DEXTROSE 5% 50 ML IV SCH (11:00)
--- NOTE | 2020-04-15 19:49 | Hospitalist Progress Note ---
Date of Service April 15, 2020 Assessment & Plan (1) Acute pyelonephritis: Presents on admission with flank pain associated with fever and leukocytosis UA positive for Leukocytes and bacteria CT abd/pelvis showed heterogeneous enhancement of the right kidney with striated nephrogram, perinephric infiltration and urothelial thickening of the right collecting system and right ureter. Urine cx positive for Ecoli Continue IV Rocephin WBC normalized Follow urine sensitivity Will need 10 to 14 days course of antibiotic (2) Hydronephrosis: CT showed mild right hydroureteronephrosis Urology on board Might need cystoscopy and ureteroscopy on right to assess for stricture, stone, or other issues. Follow up with urology Acute renal failure CKD stage III Creatinine on admission 1.2 Meloxicam and losartan help Avoid nephrotoxic agent Continue IVF (3) Acute alteration in mental status: Possible metabolic encephalopathy secondary to infection/UTI/pyelonephritis, dehydration, acute renal failure CT head shows no acute change Resolved CODE STATUS: Full code DVT prophylaxis: Subcu heparin Disposition: Discharge once medically stable Admission and Anticipated Discharge Date Admission Date: April 14, 2020 Subjective Pt was seen and examined Lying in bed with no distress with at bed side pt said that she continues to have tenderness in her flank area She said that she feels weak Denies any chest pain, palpitation and SOB Physical Exam Physical Exam: General- No acute distress Head- atraumatic Eyes- PERRL, EOMI, ENT- oropharynx clear Neck- supple, no JVD Lungs- clear to auscultation Heart- regular rhythm; no murmur Abdomen- normal bowel sounds, soft, nontender Extremities- no calf tenderness Neuro- alert, oriented x 3; PERRL, EOMI; no facial palsy; no dysarthria Skin- warm & dry Results & Data Results & Data ([facility]) Vital Signs (Past 12 Hours) Vital Signs Temp Pulse Pulse Resp BP BP Pulse Ox 04/15/20 19:00 37.9 C H 90 18 159/75 H 92 04/15/20 15:26 91 H 04/15/20 15:00 37.2 C 86 18 128/78 94 04/15/20 11:00 37.6 C H 77 18 110/51 L 91 (1) Hydronephrosis Hydronephrosis type: unspecified Qualified Code(s): N13.30 - Unspecified hydronephrosis
[2020-04-15] MEDS: VERAPAMIL HCL 240 MG TABCR PO SCH (20:41)
[2020-04-15] MEDS: ATORVASTATIN 40 MG TAB PO SCH (20:42)
[2020-04-15] MEDS: traZODone HCL 100 MG TAB PO SCH (20:42)
[2020-04-15] MEDS: NORTRIPTYLINE HCL 25 MG CAP PO SCH (20:43)
[2020-04-16] MEDS: HEPARIN SOD 5,000 UNIT/0.5 ML VIAL SQ SCH ×2 (06:05→14:47)
[2020-04-16 07:07] LABS: Basophils # (auto) 0.02 K/uL (0-0.2); Basophils % (auto) 0.3 %; Eosinophils # (auto) 0.08 K/uL (0-0.5); Eosinophils % (auto) 1.2 %; Hematocrit (blood only) 32.1 % (37-47); Hemoglobin 10.3 g/dL (12.0-16.0); Immature Granulocytes # (auto) 0.02 K/uL (0.00-0.02); Immature Granulocytes % (auto) 0.3 %; Mean Corpuscular Hemoglobin 29.6 pg (25-34); Mean Corpuscular Hgb Conc 32.1 g/dL (32-36); Mean Corpuscular Volume 92.2 fL (80-100); Mean Platelet Volume 9.7 fL (7.4-10.4); Monocytes # (auto) 0.68 K/uL (0.11-0.59); Monocytes % (auto) 9.9 %; Neutrophils # (auto) 4.96 K/uL (1.4-6.5); Neutrophils % (auto) 72.3 %; Platelet Count 120 K/uL (130-400); RDW Coefficient of Variation 13.9 % (11.5-14.5); RDW Standard Deviation 46.5 fL (36.4-46.3); Red Blood Count 3.48 M/uL (4.2-5.4); White Blood Count 6.86 K/uL (4.8-10.8)
[2020-04-16 07:37] LABS: BUN Creatinine Ratio 13.8 (10-20); Calcium 8.4 mg/dl (8.5-10.1); Creatinine Clr Calc Pharmacy 47.1 ml/min; Est GFR (African American) 56.7; Est GFR (Non-African American) 48.9; Potassium 4.1 mmol/L (3.5-5.1)
[2020-04-16] MEDS: PANTOprazole 40 MG TAB PO SCH (08:18)
[2020-04-16] MEDS: buPROPion SR 150 MG TABCR PO SCH (08:19)
[2020-04-16] MEDS: ASPIRIN 81 MG ECTAB PO SCH (08:19)
[2020-04-16] MEDS: SACCHAROMYCES BOULARDII 250 MG CAP PO SCH (08:19)
[2020-04-16] MEDS: OXYBUTYNIN CHLORIDE XL 5 MG TABCR PO SCH (08:19)
[2020-04-16] MEDS: cefTRIAXone SODIUM 1,000 MG in DEXTROSE 5% 50 ML IV SCH (10:16)
--- NOTE | 2020-04-16 18:20 | Hospitalist Progress Note ---
Date of Service April 16, 2020 Assessment & Plan (1) Acute pyelonephritis: Presents on admission with flank pain associated with fever and leukocytosis UA positive for Leukocytes and bacteria CT abd/pelvis showed heterogeneous enhancement of the right kidney with striated nephrogram, perinephric infiltration and urothelial thickening of the right collecting system and right ureter. Urine cx positive for Ecoli that is pansensitive WBC normalized and has been afebrile On IV Rocephin, will transition to oral keflex to complete 10 to 14 days course (2) Hydronephrosis: CT showed mild right hydroureteronephrosis Urology on board Might need cystoscopy and ureteroscopy on right to assess for stricture, stone, or other issues. Follow up with urology outpatient Acute renal failure CKD stage III Creatinine on admission 1.2 received IVF, creatinine 1.1 today Meloxicam and losartan on hold Avoid nephrotoxic agent (3) Acute alteration in mental status: Possible metabolic encephalopathy secondary to infection/UTI/pyelonephritis, dehydration, acute renal failure CT head shows no acute change Resolved CODE STATUS: Full code DVT prophylaxis: Subcu heparin Disposition: Will discharge home today Admission and Anticipated Discharge Date Admission Date: April 14, 2020 Subjective Pt was seen and examined Lying in bed with no distress Pt said that she feels much better She said that her flank pain improves She said that she would like to go home today Denies any chest pain, palpitation, dizziness and SOB Physical Exam Physical Exam: General- No acute distress Head- atraumatic Eyes- PERRL, EOMI, ENT- oropharynx clear Neck- supple, no JVD Lungs- clear to auscultation Heart- regular rhythm; no murmur Abdomen- normal bowel sounds, soft, nontender Extremities- no calf tenderness Neuro- alert, oriented x 3; PERRL, EOMI; no facial palsy; no dysarthria Skin- warm & dry Results & Data Results & Data ([facility]) Vital Signs (Past 12 Hours) Vital Signs Temp Pulse Pulse Resp BP BP Pulse Ox 04/16/20 17:19 36.9 C 81 18 147/74 H 110/51 L 94 04/16/20 15:00 36.9 C 81 18 147/74 H 94 04/16/20 14:20 73 04/16/20 11:47 36.8 C 77 20 116/63 94 04/16/20 07:50 36.8 C 64 18 128/75 93 04/16/20 07:00 65 (1) Hydronephrosis Hydronephrosis type: unspecified Qualified Code(s): N13.30 - Unspecified hydronephrosis
[2020-04-16] MEDS ORDERED: cephALEXin 500 MG CAP PO SCH (18:30)
--- NOTE | 2020-04-19 23:41 | Discharge Summary ---
Date of Service April 16, 2020 Admission HPI Per Admitting Provider This is 74-year-old female, with past medical history of recurrent urinary tract infection, brought to ER by daughter, as patient started to spike a temperature since last night with chills and Rigor daughter noticed this morning pt appeared to be confused , unable to follow commands , putting her underpants on top of her trouser last night pt was totally alert and oriented per daughter -pt gets episodes of confusion with prior UTI's in the ER pt appeared to be back to her baseline mental status , able to answer questions appropriately , admits of feeling confused this AM pt Reports of having urinary urgency, frequency for past 2 days, denies of any dysuria , no blood in urine felt nauseous , no vomiting . complains of rt sided back /rt flank pain started since yesterday History of recurrent urinary tract infection, was admitted on October 2019 for complicated UTI, 2 ER visits on January 2020, and March 2020 with similar complain. In the ER patient was afebrile, had mild leukocytosis, UA grossly positive, CT abdomen pelvis showed right-sided hydro-. Tubular necrosis with right perinephric stranding suggestive of acute pyelonephritis Admission Exam Per Admitting Provider Constitutional: WD/WN, vitals as above no acute distress Eyes: PERRL, conjunctivae normal, anicteric sclerae ENMT: external ear and nose normal, oropharynx normal Neck: trachea midline, no thyromegaly Respiratory: normal respiratory effort, lungs clear to auscultation Cardiovascular: RRR, no murmur, no edema Gastrointestinal: Percussion/Palpation: abdomen soft; abdomen nontender right flank pain Musculoskeletal: no cyanosis or clubbing, extremities motor strength 5/5 Skin: no rashes, warm and dry Neurologic: PERRL, EOMI, accommodation nl, no face palsy, no dysarthria Psychiatric: A+Ox3, euthymic affect Principal Diagnosis Acute pyelonephritis: Hydronephrosis: Acute alteration in mental status: Discharge Exam General- No acute distress Head- atraumatic Eyes- PERRL, EOMI, ENT- oropharynx clear Neck- supple, no JVD Lungs- clear to auscultation Heart- regular rhythm; no murmur Abdomen- normal bowel sounds, soft, nontender Extremities- no calf tenderness Neuro- alert, oriented x 3; PERRL, EOMI; no facial palsy; no dysarthria Skin- warm & dry Discharge Data Allergies Allergy/AdvReac Type Severity Reaction Status Date / Time pregabalin AdvReac Intermediate Edema Verified 04/14/20 13:30 Consultations 04/14/20 11:38 ED Decision to Admit Stat 04/14/20 12:04 Consult Urology Routine Ordered Studies 04/14/20 09:43 CT abd pelvis IV con only Stat CT head/brain wo con Stat CT OF THE HEAD WITHOUT CONTRAST CLINICAL HISTORY: Altered mental status. COMPARISON STUDY: No previous studies for comparison. CT DOSE: 1970.87 mGy.cm TECHNIQUE: Helical axial images of the head were obtained without IV contrast. Automated exposure control was utilized for the study. A dose lowering technique was utilized adhering to the principles of ALARA. FINDINGS: No acute intracranial hemorrhage, midline shift or mass effect is present. The ventricular system is unremarkable. The basilar cisterns are patent. No extra-axial collections are present. There are no findings to suggest acute dural sinus thrombosis or acute territorial infarct. No significant calvarial abnormalities are present. Visualized portions of the sinuses and mastoid air cells are clear. IMPRESSION: No acute intracranial findings. ACT 112: Negative or not required by law. Electronically signed by: Emanuel Lacey M.D. 04/14/2020 11:18 AM Dictated: 04/14/20 1116 Transcribed: 04/14/20 1116 XR chest 1V portable CLINICAL HISTORY: fever COMPARISON STUDY: Chest radiograph January 24, 2020. FINDINGS: Anterior cervical spine fusion is noted. Patient is rotated. Cardiac size is normal. Allowing for rotation, mediastinal contours are unremarkable. There is no pneumothorax or pleural effusion. There is no consolidation or evidence for pulmonary edema. Linear right basilar opacity reflects subsegmental atelectasis. The appearance of the chest is unchanged. IMPRESSION: No acute cardiopulmonary findings. No change in appearance of the chest. ACT 112: Negative or not required by law. Electronically signed by: Emanuel Lacey M.D. 04/14/2020 10:07 AM Dictated: 04/14/20 1005 Transcribed: 04/14/[address] OF THE ABDOMEN AND PELVIS WITH CONTRAST CLINICAL HISTORY: fever and UTI COMPARISON STUDY: CT of the abdomen and pelvis January 24, 2020. TECHNIQUE: Following IV administration of 93 mL of Optiray-320, axial images of the abdomen and pelvis were obtained from the lung bases to the proximal femurs. Images were reviewed in the axial, sagittal, and coronal planes. IV contrast was administered without complication. Automated exposure control was utilized for the study. A dose lowering technique was utilized adhering to the principles of ALARA. FINDINGS: Lung bases are unremarkable. No pneumatosis, free air or portal venous gas is present. Total and split megaly is unchanged. The liver, adrenal glands are unremarkable. There is pancreatic glandular atrophy. No biliary or pancreatic ductal dilatation is noted. No evidence for a bowel obstruction. There are postoperative findings within the spine with multilevel degenerative changes. Colonic diverticulosis is noted without evidence for acute diverticulitis. A moderate amount stool within the colon is noted. No bowel wall thickening is noted. Images of the pelvis are degraded by streak artifact from hip arthroplasties. There is moderate bladder wall thickening with adjacent infiltration. Mild right hydroureteronephrosis is noted. This was shown on prior exam. This has slightly decreased since prior exam. There is no left hydronephrosis. There is heterogeneity of the right kidney with multiple hypoenhancing foci. There is no renal abscess. There is thickening and enhancement of the right collecting system and ureter. There is mild right perinephric infiltration. No ureteral calculus is identified. IMPRESSION: 1. Heterogeneous enhancement of the right kidney with striated nephrogram, perinephric infiltration and urothelial thickening of the right collecting system and right ureter. Mild right hydroureteronephrosis, shown on prior exam. Given bladder wall thickening, the findings favor cystitis with ascending infectious process with right pyelonephritis. No ureteral calculi. No renal abscess. An occult obstructing distal right ureteral lesion is within the differential but considered less likely. 2. Moderate amount of stool within the colon. No bowel obstruction. ACT 112: Negative or not required by law. Electronically signed by: Emanuel Lacey M.D. 04/14/2020 11:33 AM Dictated: 04/14/20 112 Transcribed: 04/14/20 112 Hospital Course (1) Acute pyelonephritis: Presents on admission with flank pain associated with fever and leukocytosis UA positive for Leukocytes and bacteria CT abd/pelvis showed heterogeneous enhancement of the right kidney with striated nephrogram, perinephric infiltration and urothelial thickening of the right collecting system and right ureter. Urine cx positive for Ecoli that is pansensitive WBC normalized and has been afebrile On IV Rocephin, will transition to oral keflex to complete 10 to 14 days course (2) Hydronephrosis: CT showed mild right hydroureteronephrosis Urology on board Might need cystoscopy and ureteroscopy on right to assess for stricture, stone, or other issues. Follow up with urology outpatient Acute renal failure CKD stage III Creatinine on admission 1.2 received IVF, creatinine 1.1 today Meloxicam and losartan on hold Avoid nephrotoxic agent (3) Acute alteration in mental status: Possible metabolic encephalopathy secondary to infection/UTI/pyelonephritis, dehydration, acute renal failure CT head shows no acute change Resolved CODE STATUS: Full code DVT prophylaxis: Subcu heparin Disposition: Will discharge home today Total Time Total Time Spent Total Time Spent (In Minutes): 35 minutes Total Time Includes: Examination of the Patient, Discharge Planning, Medication Reconciliation, Communication With Other Providers and Other Discharge Plan Discharge Items Patient Disposition: Home - Self-Care Reason For Visit: PEYLONEPHRITIS Discharge Diagnosis: Acute pyelonephritis: Hydronephrosis: Acute alteration in mental status: Condition on Discharge: Good Activity: Resume your previous activity Non-emergency contact: Primary Care Provider Call non-emergency contact if: you have any medication questions, your pain is concerning for you, you have a fever and your temperature is above 101 Follow-up/Referrals: Feliciano Steen MD [Primary Care Provider] - Diet: Heart Healthy Addtl Attending Provider Instructions: Follow up with your primary care provider Dr. Steen within 1 week (please call to schedule for the appointment) Follow up with [facility] urology Dr. Valdez to arrange for possible cysto scopy (Please call to schedule for the appointment Complete the course of the antibiotic with keflex Pending Studies at Discharge: No Stand-Alone Forms: My [facility], Smoking Cessation Medications and DC Order Prescriptions: New cephalexin 500 mg Capsule 500 mg PO BID 10 Days Qty: 20 RF: 0 Continued atorvastatin [Lipitor] 40 mg tablet 40 mg PO HS RF: 0 bupropion HCl 150 mg tablet sustained-release 12 hr 150 mg PO BID RF: 0 meloxicam [Mobic] 15 mg tablet 15 mg PO QAM RF: 0 sumatriptan succinate [Imitrex] 50 mg Tablet 50 mg PO DIRECTED PRN (Reason: Migraine Headache) RF: 0 nortriptyline [Pamelor] 25 mg capsule 25 mg PO HS RF: 0 trazodone 100 mg tablet 100 mg PO HS RF: 0 omeprazole 20 mg capsule,delayed release(DR/EC) 20 mg PO QAM RF: 0 verapamil [Calan SR] 240 mg tablet extended release 240 mg PO HS RF: 0 losartan [Cozaar] 25 mg tablet 25 mg PO QAM RF: 0 oxybutynin chloride 5 mg tablet extended release 24hr 5 mg PO QAM RF: 0 Saccharomyces boulardii [Florastor] 250 mg capsule 250 mg PO BID Qty: 20 RF: 0 aspirin 81 mg Tablet,Delayed Release (Dr/Ec) 81 mg PO DAILY RF: 0 Discharge Orders: Discharge Order (Routine); Ordered 04/16/20 Ordered By: Luis Alberto Huddleston Admission Data Admit Date/Time: 04/14/20 12:05 Attending Provider: Luis Alberto Huddleston Admit Provider: Chinyere Cueva Primary Care Provider: Feliciano Steen Other Providers: Chinyere Cueva ; Rafi Brown ; Kai Odom ; Wicho Hagan I. ; Doroteo Veras ; Cecille Sauceda ; Ely Rutherford ; Hernandez Valdez ; Josseline Rhodes ; Susan Jarvis ; Amy Acevedo ; Curtis Garcia ; Teetee Gavin ; Nanette Burton Other Interventions: Discharge Summary Assessment (RN) Last Done: 04/16/20 18:38
[2020-04-21] MEDS ORDERED: INFLUENZA ADMINISTRATION CHARGE ONE (09:00)
[2020-04-21] MEDS ORDERED: INFLUENZA VACCINE HIGH DOSE 65+ 0.5 ML SYR IM ONE (09:00)
== END 2020-04-16 19:30 | disposition home or self-care (01) | DRG 689 ==
LOC: ED 09:31 → SUATTDRO 12:05 → 2N 12:05

== ENCOUNTER 2020-06-03 15:35 | Inpatient (IN) ==
[2020-06-03] MEDS ORDERED: SODIUM CHLORIDE 0.9% 1000ML 1,000 ML IV SCH ×2 (16:15)
[2020-06-03] MEDS ORDERED: ACETAMINOPHEN 500 MG TAB PO STA (16:17)
--- NOTE | 2020-06-03 16:27 | Emergency Department Note ---
Impression & Plan Fever, Abdominal pain, lower, Urinary tract infection symptoms ED Provider Note INFORMANT: Patient ED PROVIDER(S): Shlomo Stone MD CHIEF COMPLAINT: Urinary symptoms PLAN: Disposition: Admitted Condition: Good MEDICAL DECISION MAKING: Patient presented emergency room complaining of urinary symptoms, abdominal pain and flank pain. She was febrile. She was given Tylenol and hydrated. Cultures were obtained. Urinalysis was performed and was concerning for infection. CT imaging was performed and revealed bilateral pyelonephritis and cystitis. Record review indicates the patient has had a pansensitive E. coli. The patient was treated with IV cefepime and given IV daptomycin for broad-spectrum co verage. She had an unremarkable CBC and chemistry panel otherwise. She will need further management in the hospital. [facility] Patient was evaluated and admitted for further management. Triage Nursing notes reviewed and agree them. Prior medical records reviewed. Her outpatient culture as noted above. Pansensitive E. coli. Vital Signs: reviewed and remarkable for fever Differential diagnosis: Pyelonephritis, COVID-19 infection, appendicitis, sepsis, UTI, pneumonia, metabolic, electrolyte abnormalities, cardiac sources, intracerebral event, toxicologic, neurologic, as well as other pathologies. Diagnostics interpreted by me: ECG: Twelve-lead ECG reveals sinus rhythm at 74 bpm. PVCs. Nonspecific intraventricular conduction delay. No ST elevation or depression. Normal axis. No PVCs. Cardiac Monitoring: Cardiac monitoring ordered by me: The patient was placed on continuous cardiac monitoring and observed. It revealed a normal sinus rhythm at 80 beats per minute without ectopy or evidence of dysrhythmia. Imaging studies: CT scan as above. Bilateral pyelonephritis. I refer to the EMR for further details. Consultation(s): Dr.Palepu Melva HPI: The patient is a 70 year old female who presents to the Emergency Room with complaints of urinary symptoms. This started few days ago and is recurrent. The patient was diagnosed with UTI and placed on 10 days of antibiotics which over the last 2 days does not seem to be helping.. The patient also notes the following associated symptoms, suprapubic abdominal pain, right lower quadrant abdominal pain and right flank pain. The patient also notes fevers, fatigue, and nasal congestion. No Covid exposures per patient's history. No loss of taste or smell. The patient has found no relieving factors. Current pain is rated as 5/10. Pt denies LOC, headache, chills, diaphoresis, visual changes, neck pain, chest pain, breathing difficulties, nausea, vomiting, L back pain, melena, hematochezia, numbness, weakness, lymphadenopathy, rash, or other complaints. ROS: See above HPI for pertinent positives & negatives. A total of 10 systems reviewed and were otherwise negative. PAST MEDICAL HISTORY:See Below, UTI PAST SURGICAL HISTORY:See Below, bladder surgery, hysterectomy FAMILY HISTORY:See Below SOCIAL HISTORY:See Below, HOME MEDICATIONS:See Below ALLERGIES:See Below VITALS:See Below PHYSICAL EXAMINATION: GENERAL: Awake, tired-appearing, in no distress HENT: Normocephalic, atraumatic. Oropharynx unremarkable. EYES: Normal conjunctiva. Sclera non-icteric. NECK: Inspection normal. Non-tender. Supple. No nuchal rigidity. FROM. No masses. RESPIRATORY: Clear to auscultation. No wheezes. No rales. Normal respiratory effort. CARDIAC: Normal rate. Normal rhythm. No murmurs. No rubs. Extremities warm and well perfused. Pulses equal. No JVD. GI: Soft, non-distended. No tenderness to palpation. No rebound or guarding. No masses. RECTAL: Deferred. MUSCULOSKELETAL: Atraumatic. Chest examination reveals no tenderness. The back is symmetrical on inspection without obvious abnormality. There is no CVA tenderness to palpation. No joint edema. LOWER EXTREMITIES: Calves are equal size bilaterally and non-tender. No edema. No discoloration. NEURO: Normal sensorium. No sensory or motor deficits noted. SKIN: No rash or jaundice noted. Shlomo Stone MD Past Med/Surg History Medical History (Updated 06/03/20 @ 16:25 by Shlomo Stone MD) Acute alteration in mental status Acute pyelonephritis Acute pyelonephritis Anxiety Depression Diabetes mellitus type 2, diet-controlled Dyslipidemia Esophageal stricture Fever HTN (hypertension) Hydronephrosis Migraine Ureteral stone with hydronephrosis Surgical History H/O bladder repair surgery H/O repair of left rotator cuff H/O: hysterectomy History of back surgery History of cataract surgery History of cataract surgery History of hip replacement left and right History of nasal surgery History of total left hip arthroplasty Previous back surgery S/P TYLER (total abdominal hysterectomy) Family History Brother Myocardial infarction, Onset Age: 46 Fatal Mother Parkinson's disease Father Multiple sclerosis Social History Smoking Status: Never smoker Second Hand Exposure: No; Hx Alcohol Use: No Hx Substance Use: No Preferred Language: Luxembourgish Communication Ability: Effective Pump Runner Required: No Beliefs That Will Affect Care: None marital status: Current Living Situation: Spouse Current Living Situation Comment: Home with spouse Other Information That Helps Us Care for You: No Feels Safe at Home: Yes Safety Concerns: Feels Safe At This Time Assistive Devices: Glasses and Hearing Aid - Bilateral Allergies Allergies Allergy/AdvReac Type Severity Reaction Status Date / Time duloxetine [From Cymbalta] Allergy Unknown Unknown Verified 06/03/20 19:28 fluticasone [From Flonase] Allergy Unknown Unknown Verified 06/03/20 19:28 morphine [From Avinza] Allergy Unknown Unknown Verified 06/03/20 19:28 pregabalin AdvReac Intermediate Edema Verified 06/03/20 19:28 Home Meds Home Medications Medication Instructions Recorded Confirmed atorvastatin [Lipitor] 40 mg PO HS 09/01/18 06/03/20 bupropion HCl 150 mg PO BID 09/01/18 06/03/20 meloxicam [Mobic] 15 mg PO QAM 09/01/18 06/03/20 nortriptyline [Pamelor] 50 mg PO HS 09/01/18 06/03/20 omeprazole 20 mg PO QAM 09/01/18 06/03/20 sumatriptan succinate [Imitrex] 50 mg PO DIRECTED PRN 09/01/18 06/03/20 trazodone 100 mg PO HS 09/01/18 06/03/20 verapamil [Calan SR] 240 mg PO QAM 09/01/18 06/03/20 losartan [Cozaar] 25 mg PO QAM 03/23/19 06/03/20 oxybutynin chloride 5 mg PO QAM 03/19/20 06/03/20 aspirin 81 mg PO DAILY 10/10/20 11/29/20 Results & Data (ED) Vital Signs Vital Signs - 24 hr 06/03/20 15:48 06/03/20 16:08 06/03/20 16:15 Temperature 38.5 C H Temperature Source Oral Pulse Rate 75 74 72 Pulse Rate [Apical] Pulse Rate from SpO2 Sensor 75 73 Pulse Rhythm [Apical] Respiratory Rate 16 13 23 Respiratory Effort / Characteristics Non-Labored Spontaneous Respiratory Depth Normal Respiratory Pattern Regular Blood Pressure 118/78 Blood Pressure [Left Arm] Blood Pressure Mean 91 Blood Pressure Mean [Left Arm] Blood Pressure Position Sitting Blood Pressure Position [Left Arm] Pulse Oximetry 96 97 95 Oxygen Delivery Method Room Air Sepsis Recent Fever Within 48 Hours Yes Sepsis New/Unexplained Change in Mental Status No Sepsis Action Taken by Nursing No Action Required 06/03/20 16:30 06/03/20 16:31 06/03/20 16:33 Temperature Temperature Source Pulse Rate 74 75 Pulse Rate [Apical] 75 Pulse Rate from SpO2 Sensor 74 75 Pulse Rhythm [Apical] Respiratory Rate 16 20 19 Respiratory Effort / Characteristics Non-Labored Respiratory Depth Normal Respiratory Pattern Blood Pressure 144/61 H Blood Pressure [Left Arm] 144/61 H Blood Pressure Mean 101 Blood Pressure Mean [Left Arm] 88 Blood Pressure Position Blood Pressure Position [Left Arm] Pulse Oximetry 94 99 99 Oxygen Delivery Method Room Air Sepsis Recent Fever Within 48 Hours Sepsis New/Unexplained Change in Mental Status Sepsis Action Taken by Nursing 06/03/20 16:40 06/03/20 16:45 06/03/20 17:03 Temperature Temperature Source Pulse Rate 75 Pulse Rate [Apical] 76 Pulse Rate from SpO2 Sensor 72 Pulse Rhythm [Apical] Regular Respiratory Rate 22 24 Respiratory Effort / Characteristics Non-Labored Respiratory Depth Normal Respiratory Pattern Regular Blood Pressure Blood Pressure [Left Arm] 144/61 H Blood Pressure Mean Blood Pressure Mean [Left Arm] 88 Blood Pressure Position Blood Pressure Position [Left Arm] Lying Pulse Oximetry 98 96 Oxygen Delivery Method Room Air Sepsis Recent Fever Within 48 Hours Sepsis New/Unexplained Change in Mental Status Sepsis Action Taken by Nursing 06/03/20 17:04 06/03/20 17:08 06/03/20 17:15 Temperature Temperature Source Pulse Rate 74 74 77 Pulse Rate [Apical] Pulse Rate from SpO2 Sensor 75 87 Pulse Rhythm [Apical] Respiratory Rate 25 H 25 H 23 Respiratory Effort / Characteristics Respiratory Depth Respiratory Pattern Blood Pressure 149/52 H 163/54 H 172/66 H Blood Pressure [Left Arm] Blood Pressure Mean 110 85 111 Blood Pressure Mean [Left Arm] Blood Pressure Position Blood Pressure Position [Left Arm] Pulse Oximetry 95 92 92 Oxygen Delivery Method Sepsis Recent Fever Within 48 Hours Sepsis New/Unexplained Change in Mental Status Sepsis Action Taken by Nursing 06/03/20 17:25 06/03/20 17:30 06/03/20 17:44 Temperature 38.6 C H Temperature Source Oral Pulse Rate 79 Pulse Rate [Apical] Pulse Rate from SpO2 Sensor 78 Pulse Rhythm [Apical] Respiratory Rate 24 Respiratory Effort / Characteristics Respiratory Depth Respiratory Pattern Blood Pressure 165/64 H Blood Pressure [Left Arm] Blood Pressure Mean 92 Blood Pressure Mean [Left Arm] Blood Pressure Position Blood Pressure Position [Left Arm] Pulse Oximetry 93 93 Oxygen Delivery Method Room Air Sepsis Recent Fever Within 48 Hours Sepsis New/Unexplained Change in Mental Status Sepsis Action Taken by Nursing 06/03/20 17:45 06/03/20 18:55 06/03/20 19:09 Temperature 36.8 C Temperature Source Oral Pulse Rate 79 73 71 Pulse Rate [Apical] 72 Pulse Rate from SpO2 Sensor 73 71 Pulse Rhythm [Apical] Regular Respiratory Rate 18 18 18 Respiratory Effort / Characteristics Non-Labored Respiratory Depth Normal Respiratory Pattern Blood Pressure 118/48 L 152/63 H Blood Pressure [Left Arm] 118/48 L Blood Pressure Mean 77 107 Blood Pressure Mean [Left Arm] 71 Blood Pressure Position Blood Pressure Position [Left Arm] Lying Pulse Oximetry 94 94 Oxygen Delivery Method Room Air Sepsis Recent Fever Within 48 Hours Sepsis New/Unexplained Change in Mental Status Sepsis Action Taken by Nursing Laboratory Data Result diagrams: 06/03/20 17:48 06/03/20 17:48 Lab Results 06/03/20 06/03/20 06/03/20 Range/Units 16:35 16:35 17:01 WBC (4.8-10.8) K/uL RBC (4.2-5.4) M/uL Hgb (12.0-16.0) g/dL Hct (37-47) % MCV (80-100) fL MCH (25-34) pg MCHC (32-36) g/dL RDW Std Deviation (36.4-46.3) fL RDW Coeff of Cristel (11.5-14.5) % Plt Count (130-400) K/uL MPV (7.4-10.4) fL Immature Gran % (Auto) % Neut % (Auto) % Lymph % (Auto) % [place] % (Auto) % Eos % (Auto) % Baso % (Auto) % Neut # (Auto) (1.4-6.5) K/uL Lymph # (Auto) (1.2-3.4) K/uL [place] # (Auto) (0.11-0.59) K/uL Eos # (Auto) (0-0.5) K/uL Baso # (Auto) (0-0.2) K/uL Immature Gran # (Auto) (0.00-0.02) K/uL PT (9.0-12.0) Seconds INR (0.9-1.1) APTT (21.0-31.0) Seconds PTT Ratio Sodium (136-145) mmol/L Potassium (3.5-5.1) mmol/L Chloride (98-107) mmol/L Carbon Dioxide (21-32) mmol/L Anion Gap (3-11) BUN (7-18) mg/dl Creatinine (0.6-1.2) mg/dl Est Cr Clr Drug Dosing ml/min Est GFR ( Amer) Est GFR (Non-Af Amer) BUN/Creatinine Ratio (10-20) Glucose (70-99) mg/dl Lactate (0.4-2.0) mmol/L Calcium (8.5-10.1) mg/dl Magnesium (1.8-2.4) mg/dl Total Bilirubin (0.2-1) mg/dl AST (15-37) U/L ALT (12-78) U/L Alkaline Phosphatase (45-117) U/L Total Protein (6.4-8.2) gm/dl Albumin (3.4-5.0) gm/dl Globulin (2.5-4.0) gm/dl Albumin/Globulin Ratio (0.9-2) Urine Color Yellow Urine Appearance Turbid A (Clear) Urine pH 6.0 (4.5-7.5) Ur Specific Raymond 1.014 (1.000-1.030) Urine Protein 2+ H (Negative) Urine Glucose (UA) Negative (Negative) Urine Ketones 1+ H (Negative) Urine Blood 3+ H (Negative) Urine Nitrite Positive A (Negative) Urine Bilirubin Negative (Negative) Urine Urobilinogen Negative (Negative) Ur Leukocyte Esterase 3+ H (Negative) Urine WBC (Auto) >30 H (0-5) /hpf Urine RBC (Auto) 10-30 H (0-4) /hpf U Hyaline Cast (Auto) 0 (0-5) /lpf U Epithel Cells (Auto) 10-20 H (0-5) /lpf Urine Bacteria (Auto) 1+ H (Negative) Urine Yeast Not Reportable COVID-19 Eval Order Covid19 IDNow [facility] SARS-CoV-2, RNA, NAAT NEGATIVE (NEGATIVE) 06/03/20 06/03/20 06/03/20 Range/Units 17:48 17:48 17:48 WBC 10.74 (4.8-10.8) K/uL RBC 3.66 L (4.2-5.4) M/uL Hgb 10.9 L (12.0-16.0) g/dL Hct 33.4 L (37-47) % MCV 91.3 (80-100) fL MCH 29.8 (25-34) pg MCHC 32.6 (32-36) g/dL RDW Std Deviation 45.7 (36.4-46.3) fL RDW Coeff of Cristel 14.0 (11.5-14.5) % Plt Count 156 (130-400) K/uL MPV 9.4 (7.4-10.4) fL Immature Gran % (Auto) 0.3 % Neut % (Auto) 84.9 % Lymph % (Auto) 7.2 % [place] % (Auto) 7.4 % Eos % (Auto) 0.1 % Baso % (Auto) 0.1 % Neut # (Auto) 9.12 H (1.4-6.5) K/uL Lymph # (Auto) 0.77 L (1.2-3.4) K/uL [place] # (Auto) 0.80 H (0.11-0.59) K/uL Eos # (Auto) 0.01 (0-0.5) K/uL Baso # (Auto) 0.01 (0-0.2) K/uL Immature Gran # (Auto) 0.03 H (0.00-0.02) K/uL PT 11.4 (9.0-12.0) Seconds INR 1.1 (0.9-1.1) APTT 25.5 (21.0-31.0) Seconds PTT Ratio 0.9 Sodium 137 (136-145) mmol/L Potassium 3.5 (3.5-5.1) mmol/L Chloride 107 (98-107) mmol/L Carbon Dioxide 22 (21-32) mmol/L Anion Gap 8.0 (3-11) BUN 14 (7-18) mg/dl Creatinine 1.00 (0.6-1.2) mg/dl Est Cr Clr Drug Dosing 51.4 ml/min Est GFR ( Amer) 64.3 Est GFR (Non-Af Amer) 55.5 BUN/Creatinine Ratio 14.4 (10-20) Glucose 141 H (70-99) mg/dl Lactate (0.4-2.0) mmol/L Calcium 8.2 L (8.5-10.1) mg/dl Magnesium 1.5 L (1.8-2.4) mg/dl Total Bilirubin 0.4 (0.2-1) mg/dl AST 12 L (15-37) U/L ALT 17 (12-78) U/L Alkaline Phosphatase 98 (45-117) U/L Total Protein 6.2 L (6.4-8.2) gm/dl Albumin 3.0 L (3.4-5.0) gm/dl Globulin 3.2 (2.5-4.0) gm/dl Albumin/Globulin Ratio 0.9 (0.9-2) Urine Color Urine Appearance (Clear) Urine pH (4.5-7.5) Ur Specific Raymond (1.000-1.030) Urine Protein (Negative) Urine Glucose (UA) (Negative) Urine Ketones (Negative) Urine Blood (Negative) Urine Nitrite (Negative) Urine Bilirubin (Negative) Urine Urobilinogen (Negative) Ur Leukocyte Esterase (Negative) Urine WBC (Auto) (0-5) /hpf Urine RBC (Auto) (0-4) /hpf U Hyaline Cast (Auto) (0-5) /lpf U Epithel Cells (Auto) (0-5) /lpf Urine Bacteria (Auto) (Negative) Urine Yeast COVID-19 Eval Order SARS-CoV-2, RNA, NAAT (NEGATIVE) 06/03/20 Range/Units 17:48 WBC (4.8-10.8) K/uL RBC (4.2-5.4) M/uL Hgb (12.0-16.0) g/dL Hct (37-47) % MCV (80-100) fL MCH (25-34) pg MCHC (32-36) g/dL RDW Std Deviation (36.4-46.3) fL RDW Coeff of Cristel (11.5-14.5) % Plt Count (130-400) K/uL MPV (7.4-10.4) fL Immature Gran % (Auto) % Neut % (Auto) % Lymph % (Auto) % [place] % (Auto) % Eos % (Auto) % Baso % (Auto) % Neut # (Auto) (1.4-6.5) K/uL Lymph # (Auto) (1.2-3.4) K/uL [place] # (Auto) (0.11-0.59) K/uL Eos # (Auto) (0-0.5) K/uL Baso # (Auto) (0-0.2) K/uL Immature Gran # (Auto) (0.00-0.02) K/uL PT (9.0-12.0) Seconds INR (0.9-1.1) APTT (21.0-31.0) Seconds PTT Ratio Sodium (136-145) mmol/L Potassium (3.5-5.1) mmol/L Chloride (98-107) mmol/L Carbon Dioxide (21-32) mmol/L Anion Gap (3-11) BUN (7-18) mg/dl Creatinine (0.6-1.2) mg/dl Est Cr Clr Drug Dosing ml/min Est GFR ( Amer) Est GFR (Non-Af Amer) BUN/Creatinine Ratio (10-20) Glucose (70-99) mg/dl Lactate 0.9 (0.4-2.0) mmol/L Calcium (8.5-10.1) mg/dl Magnesium (1.8-2.4) mg/dl Total Bilirubin (0.2-1) mg/dl AST (15-37) U/L ALT (12-78) U/L Alkaline Phosphatase (45-117) U/L Total Protein (6.4-8.2) gm/dl Albumin (3.4-5.0) gm/dl Globulin (2.5-4.0) gm/dl Albumin/Globulin Ratio (0.9-2) Urine Color Urine Appearance (Clear) Urine pH (4.5-7.5) Ur Specific Raymond (1.000-1.030) Urine Protein (Negative) Urine Glucose (UA) (Negative) Urine Ketones (Negative) Urine Blood (Negative) Urine Nitrite (Negative) Urine Bilirubin (Negative) Urine Urobilinogen (Negative) Ur Leukocyte Esterase (Negative) Urine WBC (Auto) (0-5) /hpf Urine RBC (Auto) (0-4) /hpf U Hyaline Cast (Auto) (0-5) /lpf U Epithel Cells (Auto) (0-5) /lpf Urine Bacteria (Auto) (Negative) Urine Yeast COVID-19 Eval Order SARS-CoV-2, RNA, NAAT (NEGATIVE) Administered Medications Discontinued Medications Acetaminophen (Acetaminophen 500 Mg Tab) 1,000 mg PO NOW STA Stop: 06/03/20 16:18 Last Admin: 06/03/20 16:30 Dose: 1,000 mg Documented by: [id number] Sodium Chloride (Nss 1000ml) 1,000 mls @ 999 mls/hr IV .Q1H1M [facility] Stop: 06/03/20 17:15 Last Infusion: 06/03/20 18:01 Dose: 0 mls/hr Documented by: [id number] Admin: 06/03/20 17:00 Dose: 999 mls/hr Documented by: [id number] Sodium Chloride (Nss 1000ml) 1,000 mls @ 150 mls/hr IV .Q6H40M [facility] Stop: 07/03/20 16:14 Last Admin: 06/03/20 18:35 Dose: 150 mls/hr Documented by: [id number] Cefepime HCl (Maxipime) 2,000 mg in 20 mls @ 5 mls/min IV NOW STA; Protocol Stop: 06/03/20 18:02 Last Admin: 06/03/20 18:52 Dose: 5 mls/min Documented by: [id number] Daptomycin 400 mg/ Syringe 8 mls @ 4 mls/min IV NOW ONE; Protocol Stop: 06/03/20 19:10 Last Admin: 06/03/20 19:36 Dose: 4 mls/min Documented by: [id number] Ioversol (Ioversol 100ml) 93 ml IV ONCE ONE Stop: 06/03/20 18:40 Last Admin: 06/03/20 18:40 Dose: 93 ml Documented by: [id number] Discharge Plan Visit Data Chief Complaint: Urinary Symptoms Stated Complaint: URINARY FREQUENCY/URGENCY ED Provider: Shlomo Stone Discharge Problem: Fever, Abdominal pain, lower, Urinary tract infection symptoms Patient Disposition: Admitted As Inpatient Discharge Instructions Interventions: ED Discharge Assessment Last Done: 06/03/20 20:41
[2020-06-03 17:15] LABS: Appearance Urine Turbid (Clear); Bacteria Urine Automated 1+ (Negative); Bilirubin Urine Negative (Negative); Blood Urine 3+ (Negative); Color Urine Yellow; Glucose Urine UA Negative (Negative); Ketones Urine 1+ (Negative); Leukocyte Esterase Urine 3+ (Negative); Nitrite Urine Positive (Negative); Protein Urine 2+ (Negative); Specific Gravity Urine 1.014 (1.000-1.030); Urobilinogen Urine Negative (Negative); WBC Urine Automated >30 /hpf (0-5)
--- NOTE | 2020-06-03 17:30 | XRay Report ---
SINGLE VIEW CHEST CLINICAL HISTORY: Sepsis. FINDINGS: An AP, portable, upright chest radiograph is compared to study dated 04/14/2020. The examin ation is degraded by portable technique and patient rotation. The cardiomediastinal silhouette is u nremarkable. There is mild elevation of the left hemidiaphragm and bibasilar atelectasis. No airspace consolidation or large pleural effusion is identified. No pneumothorax is seen. The skeletal structu res are osteopenic. The bony thorax is grossly intact. Fusion hardware is noted in the lower cervical spine. IMPRESSION: No active disease in the chest. ACT 112: Negative or not required by law. Electronically signed by: Barry Bailon M.D. 06/03/2020 5:28 PM
[2020-06-03 17:42] LABS: Cast Urine Automated 0 /lpf (0-5)
[2020-06-03] MEDS ORDERED: CEFEPIME 2,000 MG/20 ML VIAL IV STA (17:59)
[2020-06-03 18:05] LABS: Basophils # (auto) 0.01 K/uL (0-0.2); Basophils % (auto) 0.1 %; Eosinophils # (auto) 0.01 K/uL (0-0.5); Eosinophils % (auto) 0.1 %; Hematocrit (blood only) 33.4 % (37-47); Hemoglobin 10.9 g/dL (12.0-16.0); Immature Granulocytes # (auto) 0.03 K/uL (0.00-0.02); Immature Granulocytes % (auto) 0.3 %; Lymphocytes # (auto) 0.77 K/uL (1.2-3.4); Lymphocytes % (auto) 7.2 %; Mean Corpuscular Hemoglobin 29.8 pg (25-34); Mean Corpuscular Hgb Conc 32.6 g/dL (32-36); Mean Corpuscular Volume 91.3 fL (80-100); Mean Platelet Volume 9.4 fL (7.4-10.4); Monocytes % (auto) 7.4 %; Neutrophils # (auto) 9.12 K/uL (1.4-6.5); Neutrophils % (auto) 84.9 %; Platelet Count 156 K/uL (130-400); RDW Standard Deviation 45.7 fL (36.4-46.3); Red Blood Count 3.66 M/uL (4.2-5.4); White Blood Count 10.74 K/uL (4.8-10.8)
[2020-06-03 18:15] LABS: INR 1.1 (0.9-1.1); Partial Thromboplastin Ratio 0.9; Partial Thromboplastin Time 25.5 Seconds (21.0-31.0); Prothrombin Time 11.4 Seconds (9.0-12.0)
[2020-06-03 18:22] LABS: BUN Creatinine Ratio 14.4 (10-20); Calcium 8.2 mg/dl (8.5-10.1); Creatinine Clr Calc Pharmacy 51.4 ml/min; Est GFR (African American) 64.3; Est GFR (Non-African American) 55.5; Magnesium 1.5 mg/dl (1.8-2.4); Potassium 3.5 mmol/L (3.5-5.1)
[2020-06-03 18:25] LABS: Albumin Globulin Ratio 0.9 (0.9-2); Bilirubin,Total 0.4 mg/dl (0.2-1); Globulin 3.2 gm/dl (2.5-4.0); Total Protein 6.2 gm/dl (6.4-8.2)
[2020-06-03] MEDS ORDERED: IOVERSOL 100ml IV ONE (18:39)
--- NOTE | 2020-06-03 19:00 | CT Scan Report ---
CT SCAN OF THE ABDOMEN AND PELVIS WITH IV CONTRAST CLINICAL HISTORY: Right-sided and suprapubic abdominal pain. COMPARISON STUDY: Abdominal CT dated 04/14/2020 and 09/03/2018. TECHNIQUE: Following the IV administration of 93 cc of Optiray 320, CT scan of the abdomen and pelvi s is performed from the lung bases to the proximal femora. Images are reviewed in the axial, sagittal , and coronal planes. IV contrast was administered without complication. A dose lowering technique wa s utilized adhering to the principles of ALARA. The examination is degraded by significant metallic s treak artifact from 1. Hardware in the lumbar spine and hips. CT DOSE: 651.46 mGy.cm FINDINGS: Lung bases: The heart is normal in size and without pericardial effusion. There is elevation of the l eft hemidiaphragm with bibasilar scarring/atelectasis. A calcified granuloma is seen in the lingula. No airspace consolidation or pleural effusion is identified. There is a small hiatal hernia. Liver: The contrast-enhanced liver is normal in size, contour, and attenuation. There is no intrahepa tic biliary ductal dilatation. The hepatic veins and portal veins are patent. Gallbladder: Unremarkable. Spleen: Normal in size and attenuation. Pancreas: There is near-complete fatty atrophy of the pancreas. An 8mm pancreatic nodule versus perip ancreatic lymph node is seen on image #120. Adrenal glands: Unremarkable. Kidneys: The contrast enhanced kidneys demonstrate cortical atrophy. There is mild bilateral hydronep hrosis, right greater than left. Urothelial thickening is identified within the renal pelvis bilatera lly and along the course of both ureters. There is mild associated periureteral stranding. There is h eterogeneous perfusion of both kidneys, right greater than left. Abdominal vasculature: The abdominal aorta is normal in course and caliber noting moderate to advance d atherosclerotic calcification. Bowel: There is moderate colonic diverticulosis without CT evidence of acute diverticulitis. No bowel obstruction is seen. Mild fecal retention is noted in the colon. The appendix is not visualized. Peritoneum: There is no intraperitoneal free air or abdominal ascites. Lymphadenopathy: None. Pelvic viscera: Evaluation of the pelvis is significantly degraded by streak artifact from bilateral hip arthroplasties. The bladder wall is thickened and hyperemic. There is pericystic inflammation. Th e uterus is surgically absent. No adnexal lesion is seen. Skeletal structures: The skeletal structures are osteopenic. Degenerative change is noted throughout the thoracolumbar spine. There is postoperative change from laminectomy and posterior fusion seen at L2-S1. A mild chronic superior endplate compression deformity is noted in T12. No lytic or blastic le sions are seen. Bilateral hip arthroplasties are in place. IMPRESSION: 1. Findings are consistent with cystitis and bilateral pyelonephritis. Correlation with clinical find ings and urinalysis will be required. 2. There is mild bilateral hydronephrosis, right greater than left. 3. There is near-complete fatty replacement of the pancreas, with an 8 mm pancreatic nodule versus pe ripancreatic lymph node seen in the pancreatic body. A pancreatic nodule is favored, and a small isle t cell tumor could have this appearance. Nonemergent GI follow-up is recommended. ACT 112: Negative or not required by law. Electronically signed by: Barry Bailon M.D. 06/03/2020 6:58 PM
[2020-06-03] MEDS ORDERED: DAPTOmycin 400 MG in SYRINGE 0 ML IV ONE (19:09)
[2020-06-03] MEDS ORDERED: ATORVASTATIN 40 MG TAB PO SCH (21:06)
[2020-06-03] MEDS ORDERED: SUMAtriptan succinate 50 MG TAB PO PRN (21:06)
[2020-06-03] MEDS ORDERED: ONDANSETRON INJ 2 MG/ML 2 ML VIAL IV PRN (21:06)
[2020-06-03] MEDS ORDERED: POLYETHYLENE (MIRALAX) 17 GM PACK PO PRN (21:06)
[2020-06-03] MEDS ORDERED: POTASSIUM CHLORIDE CRTAB 20 MEQ TABCR PO STA (21:06)
[2020-06-03] MEDS ORDERED: MEROPENEM CONSULT ACITVE PRN (21:06)
--- NOTE | 2020-06-03 21:34 | History and Physical Report ---
DATE OF ADMISSION: 06/03/2020 CHIEF COMPLAINT: Recurrent UTI and pyelonephritis. HISTORY OF PRESENT ILLNESS: A 74-year-old female with past medical history significant for type 2 diabetes, not on any medications, hyperlipidemia, chronic kidney disease stage III, hypertension, esophageal stricture, recurrent UTI, recurrent pyelonephritis, spondylolisthesis, migraines, normocytic anemia, recurrent major depression, generalized anxiety disorder, persistent insomnia, history of sepsis, obesity. The patient lives with her , comes because of urinary symptoms. She is having urgency and frequency of urine and also burning micturition going for some time. She just finished a course of Keflex, but is not getting better. She is also having some abdominal discomfort and back pain. She also comes with some headache. Denies any fever, chills. No nausea, no vomiting, no diarrhea or constipation. No cough, no shortness of breath, no chest pain, no blurred vision, no earache, no runny nose, no sore throat. Currently hemodynamically stable. ALLERGIES: LYRICA,AVINZA, CYMBALTA, FLONASE. PAST MEDICAL HISTORY: As mentioned above. PAST SURGICAL HISTORY: Left shoulder arthroscopy, cystourethroscopy with ureteral lithotripsy, cystoscopy, cervical spurs removed, and cervical fusion in 2008, lasering of secondary cataract on right side, lumbar spine decompression and fusion, left eye, partial removal of eye fluid, cataract bilateral, repair of the nose septum, repair of sciatica with laminectomy, total abdominal hysterectomy with removal of ovaries, left total hip replacement. MEDICATIONS: The patient is on aspirin 81 mg p.o. daily, Lipitor 40 mg p.o. at bedtime, bupropion 150 mg p.o. b.i.d., Cozaar 25 mg p.o. a.m., meloxicam 15 mg p.o. q.a.m., nortriptyline 50 mg p.o. at bedtime, omeprazole 20 mg p.o. a.m., oxybutynin 5 mg p.o. a.m., Imitrex 50 mg p.r.n., trazodone 100 mg at bedtime, verapamil 240 mg p.o. a.m. FAMILY HISTORY: Significant for brother has diabetes, heart disorder, son has hypertension, daughter has headaches. SOCIAL HISTORY: . No smoking, no alcohol, no drug use. REVIEW OF SYMPTOMS: As per HPI. Rest of review of systems negative. PHYSICAL EXAMINATION: GENERAL: The patient is of moderate built, not in acute distress. VITAL SIGNS: Temperature 36.8, pulse 71, respiratory rate 18, blood pressure 159/68, oxygen 96% on room air, T-max is 38.6. HEENT: Pupils equal, round, reactive to light. Oral mucosa moist. NECK: No JVD, no neck masses. CARDIOVASCULAR: S1, S2 heard, regular rate and rhythm, no murmur, no gallop. RESPIRATORY SYSTEM: Normal AP diameter. No accessory muscle use. No wheezing, no crackles. ABDOMEN: Soft, bowel sounds present, nontender. No distention, no CVA tenderness. CENTRAL NERVOUS SYSTEM: Cranial nerves II-XII grossly intact, nonfocal. EXTREMITIES: No edema, no erythema. LABORATORY DATA: WBC 10, hemoglobin 10.9, hematocrit 33.4, platelets 156. PT 11.4, INR 1.1, APTT 25.5. Sodium 137, potassium 3.5, chloride 107, bicarbonate 22, BUN 14, creatinine 1, serum glucose 141. Lactate 0.9, calcium 8.2, magnesium 1.5, total bilirubin 0.4, AST 12, ALT 17, alkaline phosphatase 98. Urinalysis, urine nitrite positive, urine leukocyte esterase +3. SARS-CoV-2 RNA negative. IMAGING: Chest x-ray, no active disease in the chest. CT abdomen and pelvis, findings are consistent with cystitis and bilateral pyelonephritis, mild bilateral hydronephrosis, right greater than left, complete fatty replacement of the pancreas, 8 mm pancreatic bisi versus peripancreatic lymph node seen in the pancreatic body, seems pancreatic node but small islet cell tumor could have this appearance, nonemergent GI followup is recommended. EKG: Sinus rhythm with occasional PVCs at a rate of 74, no acute ST changes seen. ASSESSMENT AND PLAN: This 74-year-old female presents with recurrent pyelonephritis. 1. Recurrent pyelonephritis. Bilateral, supposed to get cystoscopy on 06/18/2020 by Urology, as per the patient, she has just finished a course of Keflex, but symptoms are not getting better. ER started on cefepime and dapto, will continue dapto and meropenem. Follow the cultures. IV fluids, gentle fluids and consult Urology in a.m. for further recommendations. Closely monitor in medical floor. 2. Hypomagnesemia. Will replace. 3. Diabetes, not on medication. We will place on insulin sliding scale. Follow HbA1c level. We will follow the blood sugars. 4. Hypertension. Continue verapamil and losartan. We will monitor blood pressure. 5. Hyperlipidemia. Hold Lipitor while she is on daptomycin. 6. Depression and anxiety. Continue bupropion. 7. Headaches, migraines headaches. On Imitrex p.r.n. 8. Gastroesophageal reflux disease, Protonix. 9.Ckd stage 3. baseline cr 1.0. will follow labs. 10. Pancreatic nodule.Gi consult when stable. 11Anemia hb 10.9 Follow anemia workup 12. Deep venous thrombosis prophylaxis, Lovenox. DISPOSITION: Monitor in the medical floor. Expect to discharge home. Follow with family doctor. Level 1 full code. MTDD
[2020-06-03] MEDS ORDERED: GLUCAGON FOR INJ 1 MG VIAL SQ PRN (21:45)
[2020-06-03] MEDS ORDERED: DEXTROSE 50% 50 ML SYRINGE IV PRN (21:45)
[2020-06-03] MEDS ORDERED: CARBOHYDRATES FOR HYPOGLYCEMIA PO PRN (21:45)
[2020-06-03] MEDS ORDERED: GLUCOSE 10 TABS/TUBE PO PRN (21:45)
[2020-06-03] MEDS ORDERED: GLUCOSE 40% GEL 15 GM TUBE PO PRN (21:45)
[2020-06-03] MEDS: MAGNESIUM SULFATE / D5W 1 GM/100 ML BAG IV SCH (22:10)
[2020-06-03] MEDS: ATORVASTATIN 40 MG TAB PO SCH (22:10)
[2020-06-03] MEDS: traZODone HCL 100 MG TAB PO SCH (22:10)
[2020-06-03] MEDS: buPROPion SR 150 MG TABCR PO SCH (22:11)
[2020-06-03] MEDS: NORTRIPTYLINE HCL 25 MG CAP PO SCH (22:11)
[2020-06-03] MEDS: MEROPENEM 500 MG in SYRINGE 0 ML IV SCH (22:11)
[2020-06-03] MEDS: ENOXAPARIN INJ 40 MG/0.4 ML SYR SQ SCH (22:11)
[2020-06-03] MEDS: SODIUM CHLORIDE 0.9% 1000ML 1,000 ML IV SCH (22:27)
[2020-06-03] MEDS: INSULIN ASPART 100 UNITS/ML 3 ML PEN SC SCH (22:33)
[2020-06-03] MEDS: ACETAMINOPHEN 325 MG TAB PO PRN (23:53)
[2020-06-04] MEDS: MAGNESIUM SULFATE / D5W 1 GM/100 ML BAG IV SCH (00:38)
[2020-06-04] MEDS ORDERED: KETOROLAC 30 MG/ML VIAL IV ONE (01:17)
[2020-06-04] MEDS: MEROPENEM 500 MG in SYRINGE 0 ML IV SCH ×2 (05:30→12:22)
[2020-06-04 05:40] LABS: Basophils # (auto) 0.01 K/uL (0-0.2); Basophils % (auto) 0.1 %; Eosinophils # (auto) 0.01 K/uL (0-0.5); Eosinophils % (auto) 0.1 %; Hemoglobin 10.1 g/dL (12.0-16.0); Immature Granulocytes # (auto) 0.05 K/uL (0.00-0.02); Immature Granulocytes % (auto) 0.5 %; Lymphocytes # (auto) 0.85 K/uL (1.2-3.4); Lymphocytes % (auto) 8.6 %; Mean Corpuscular Hemoglobin 29.7 pg (25-34); Mean Corpuscular Hgb Conc 32.6 g/dL (32-36); Mean Corpuscular Volume 91.2 fL (80-100); Mean Platelet Volume 9.4 fL (7.4-10.4); Monocytes # (auto) 0.96 K/uL (0.11-0.59); Monocytes % (auto) 9.7 %; Neutrophils # (auto) 8.04 K/uL (1.4-6.5); Platelet Count 155 K/uL (130-400); RDW Coefficient of Variation 14.1 % (11.5-14.5); RDW Standard Deviation 46.6 fL (36.4-46.3); White Blood Count 9.92 K/uL (4.8-10.8)
[2020-06-04 06:05] LABS: BUN Creatinine Ratio 13.3 (10-20); Calcium 8.1 mg/dl (8.5-10.1); Creatinine Clr Calc Pharmacy 54.4 ml/min; Est GFR (African American) 69.3; Est GFR (Non-African American) 59.8; Magnesium 2.4 mg/dl (1.8-2.4); Potassium 3.5 mmol/L (3.5-5.1)
[2020-06-04 06:12] LABS: Ferritin 80.8 ng/ml (8-388)
[2020-06-04 06:25] LABS: Folate (Folic Acid) > 20.00 ng/ml (>5.38); Vitamin B12 > 2000 pg/ml (193-986)
[2020-06-04 06:45] LABS: Estimated Average Glucose 143 mg/dl; Hemoglobin A1C 6.6 % (4.5-5.6)
--- NOTE | 2020-06-04 07:58 | Urology Consultation ---
Date of Consultation June 04, 2020 Assessment & Plan (1) Acute pyelonephritis: 74 yo F admitted for fever, acute pyelonephritis. - Febrile overnight, Tmax 39.5 06/04 @0113 - Labs reviewed - WBC improved to 9.92, creatinine WNL - UC&S and BCx pending - continue broad spectrum antibiotics - follow cultures - Imaging and plan of care reviewed with Dr. Valdez - CT findings consistent with cystitis and bilateral pyelonephritis, mild bilateral hydronephrosis, right greater than left - Continue antibiotics, hydration, and supportive care - Plan for cystoscopy with bilateral retrograde pyelograms, possible ureteroscopy and possible biopsy on 06/18/[address] Valdez - Recommend 14 days of antibiotics, continue antibiotic therapy until planned procedure - Will continue to follow closely with primary team History of Present Illness Reason for Consultation: Recurrent pyelonephritis Requesting Physician: Dr. Larson Attending Physician: Chinyere Cueva MD History of Present Illness 74 yo F admitted for fever, acute pyelonephritis. PMHx of hypertension, dyslipidemia, type 2 diabetes, migraine, depression, anxiety, UTI. Patient is known to our service, follows with Dr. Valdez. She was recently hospitalized at [facility] from 04/14 through 04/16/20 for acute pyelonephritis, urine grew E. coli. She was seen in our clinic for hospital follow-up and plans made for cystoscopy with bilateral retrograde pyelograms possible ureteroscopy and possible biopsy on 06/18/[address] Valdez. She presented to [facility] ED on 06/03/20 with c/o fever, abdominal pain, and urinary symptoms. She was on a 10 day course of Keflex from her PCP and symptoms worsened prompting ER evaluation. Temperature on arrival was 38.5. Lab work: creatinine 1.00, WBC 10.74, lactate 0.9, UA positive for nitrites, +1 bacteria, 10-30 RBCs, >30 WBCs. Urine and blood cultures collected. COVID testing negative. She was treated with IV fluids, Tylenol, IV Cefepime and IV Daptomycin in the ED. She was admitted for further evaluation and management. Our service is consulted for recurrent pyelonephritis. CT A/P with IV contrast demonstrated mild bilateral hydronephrosis, right greater than left. Urothelial thickening is identified within the renal pelvis bilaterally and along the course of both ureters. There is mild associated periureteral stranding. There is heterogeneous perfusion of both kidneys, right greater than left. The bladder wall is thickened and hyperemic. There is pericystic inflammation. Findings consistent with cystitis and bilateral pyelonephritis. Chart review: Tmax 39.5 06/04 @0113 Creatinine - 0.94 WBC - 9.92 UC&S - pending BCx - pending On IV Meropenem and Daptomycin Patient seen and examined at bedside this AM. Sleeping on arrival, arouses easily to speech. Reports she is feeling a little better since admission. Currently experiencing some chills. Denies recent fever. Reports fever overnight. No nausea or vomiting. Low appetite. Voiding spontaneously. Reports some incontinence which she reports happens when she has UTI. No hematuria. Dysuria improved. Reports mild right sided abdominal and flank pain, improved since admission. No additional urological concerns today. Allergies Allergy/AdvReac Type Severity Reaction Status Date / Time duloxetine [From Cymbalta] Allergy Unknown Unknown Verified 06/03/20 19:28 fluticasone [From Flonase] Allergy Unknown Unknown Verified 06/03/20 19:28 morphine [From Avinza] Allergy Unknown Unknown Verified 06/03/20 19:28 pregabalin AdvReac Intermediate Edema Verified 06/03/20 19:28 Home Medications Medication Instructions Recorded Confirmed Type atorvastatin [Lipitor] 40 mg PO HS 09/01/18 06/03/20 History bupropion HCl 150 mg PO BID 09/01/18 06/03/20 History meloxicam [Mobic] 15 mg PO QAM 09/01/18 06/03/20 History nortriptyline [Pamelor] 50 mg PO HS 09/01/18 06/03/20 History omeprazole 20 mg PO QAM 09/01/18 06/03/20 History sumatriptan succinate [Imitrex] 50 mg PO DIRECTED PRN 09/01/18 06/03/20 History trazodone 100 mg PO HS 09/01/18 06/03/20 History verapamil [Calan SR] 240 mg PO QAM 09/01/18 06/03/20 History losartan [Cozaar] 25 mg PO QAM 03/23/19 06/03/20 History oxybutynin chloride 5 mg PO QAM 03/19/20 06/03/20 History aspirin 81 mg PO DAILY 04/14/20 06/03/20 History Patient History Medical History Acute alteration in mental status Acute pyelonephritis Acute pyelonephritis Anxiety Depression Diabetes mellitus type 2, diet-controlled Dyslipidemia Esophageal stricture Fever HTN (hypertension) Hydronephrosis Migraine Ureteral stone with hydronephrosis Surgical History H/O bladder repair surgery H/O repair of left rotator cuff H/O: hysterectomy History of back surgery History of cataract surgery History of cataract surgery History of hip replacement left and right History of nasal surgery History of total left hip arthroplasty Previous back surgery S/P TYLER (total abdominal hysterectomy) Family History Brother Myocardial infarction, Onset Age: 46 Fatal Mother Parkinson's disease Father Multiple sclerosis Social History Smoking Status: Never smoker Second Hand Exposure: No; Hx Alcohol Use: No Hx Substance Use: No Preferred Language: Urdu Communication Ability: Effective Civil Estimator Required: No Beliefs That Will Affect Care: None marital status: Current Living Situation: Spouse Current Living Situation Comment: Home with spouse Other Information That Helps Us Care for You: No Feels Safe at Home: Yes Safety Concerns: Feels Safe At This Time Assistive Devices: Glasses and Hearing Aid - Bilateral Review of Systems Constitutional: as per Subjective / HPI Gastrointestinal: as per Subjective / HPI Genitourinary: as per Subjective / HPI Physical Exam Constitutional: no acute distress Respiratory: normal respiratory effort and able to speak in complete sentences; no respiratory distress and no labored breathing Cardiovascular: Extremities: no pedal edema Gastrointestinal (Abdomen): Inspection/Auscultation: abdomen normal to inspection; abdomen not distended Percussion/Palpation: + abdomen tender (mild tenderness generalized on right abdomen) and abdomen soft; no guarding Musculoskeletal: Head/Neck/Chest: normocephalic and head atraumatic Skin: warm and dry Neurologic: moves all extremities and awake Psychiatric: Orientation: alert and oriented x 3 Genitourinary: mild tenderness to palpation on right flank Results & Data ([facility]) Vital Signs (Past 12 Hours) Vital Signs Temp Pulse Resp BP BP Pulse Ox 06/04/20 07:15 37.1 C 19 151/67 H 96 06/04/20 02:02 37.2 C 06/04/20 01:13 39.5 C H 06/03/20 23:35 39.5 C H 83 16 168/80 H 93 06/03/20 21:09 36.9 C 79 20 128/62 93 06/03/20 20:00 159/68 H 96 PG Care Time/CCT Total # of Minutes Spent Total Time Spent with Patient: Total time spent is greater than 50% in coordination of care (as documented) at patient's floor/unit and/or counseling patient: Coding Level of Care Code 18427 Inpt Consult Level 3 Diagnoses Acute pyelonephritis N10
[2020-06-04] MEDS: ASPIRIN 81 MG ECTAB PO SCH (08:28)
[2020-06-04] MEDS: LOSARTAN POTASSIUM 25 MG TAB PO SCH (08:28)
[2020-06-04] MEDS: VERAPAMIL HCL 240 MG TABCR PO SCH (08:28)
[2020-06-04] MEDS: buPROPion SR 150 MG TABCR PO SCH ×2 (08:28→20:26)
[2020-06-04] MEDS: PANTOprazole 40 MG TAB PO SCH (08:28)
[2020-06-04] MEDS: OXYBUTYNIN CHLORIDE XL 5 MG TABCR PO SCH (08:28)
[2020-06-04] MEDS: INSULIN ASPART 100 UNITS/ML 3 ML PEN SC SCH ×4 (08:31→20:49)
[2020-06-04] MEDS: SODIUM CHLORIDE 0.9% 1000ML 1,000 ML IV SCH (09:15)
--- NOTE | 2020-06-04 11:13 | Electrocardiogram Report ---
Test Reason : Blood Pressure : / mmHG Vent. Rate : 074 BPM Atrial Rate : 074 BPM P-R Int : 128 ms QRS Dur : 138 ms QT Int : 372 ms P-R-T Axes : -15 -19 000 degrees QTc Int : 412 ms Sinus rhythm with occasional Premature ventricular complexes Right bundle branch block Abnormal ECG When compared with ECG of 14-APR-2020 10:36, QT has shortened Confirmed by Israel Moura ([id number]) on 06/04/2020 11:13:26 AM Referred By: REFERRED SELF Confirmed By:Wes Moura
[2020-06-04] MEDS: ACETAMINOPHEN 325 MG TAB PO PRN (12:29)
--- NOTE | 2020-06-04 17:44 | Hospitalist Progress Note ---
Date of Service June 04, 2020 Assessment & Plan (1) Pyelonephritis, acute: 1) Acute pyelonephritis: Presents on admission with flank pain associated with fever and leukocytosis UA positive for Leukocytes and bacteria CT A/P with IV contrast demonstrated mild bilateral hydronephrosis, right greater than left. Urothelial thickening is identified within the renal pelvis bilaterally and along the course of both ureters. There is mild associated periureteral stranding. There is heterogeneous perfusion of both kidneys, right greater than left. The bladder wall is thickened and hyperemic. There is pericystic inflammation. Findings consistent with cystitis and bilateral pyelonephritis. urine culture : gram negative bacilli recent admission with similar presentation Urine cx 04/2020 : positive for Ecoli that is pansensitive cont Imipenem , will deascalate Abx once sensitivity is available (2) Hydronephrosis: CT finding as above Urology on board-appreciate consult recommends to cont with Abx treatment out patinet cystoscopy and ureteroscopy scheduled on jun CODE STATUS: Full code Disposition: discharge home when medically stable Admission and Anticipated Discharge Date Admission Date: June 03, 2020 Subjective Follow up visit : for Pylonephritis /Flank pain Pt report feeling a bit better still very weak and fatigued abdominal pain /flank pain has improved afebrile since admission no nausea /vomiting appetitie remains poor Review of Systems Review of Systems: All systems reviewed & are unremarkable except as noted in HPI & below Physical Exam Constitutional: WD/WN, vitals as above + ill appearing Eyes: + anicteric sclerae ENMT: external ear and nose normal, oropharynx normal Neck: trachea midline, no thyromegaly Respiratory: normal respiratory effort, lungs clear to auscultation Cardiovascular: RRR, no murmur, no edema Gastrointestinal (Abdomen): Percussion/Palpation: abdomen soft; abdomen nontender Skin: no rashes, warm and dry Neurologic: PERRL, EOMI, accommodation nl, no face palsy, no dysarthria Psychiatric: A+Ox3, euthymic affect Results & Data Results & Data ([facility]) Vital Signs (Past 12 Hours) Vital Signs Temp Resp BP Pulse Ox 06/04/20 15:36 36.9 C 16 123/56 L 93 06/04/20 07:15 37.1 C 19 151/67 H 96
[2020-06-04] MEDS ORDERED: PIPERACILL/TAZOBAC CONSULT ACTIVE PRN (18:24)
[2020-06-04] MEDS ORDERED: PIPERACILLIN/TAZOBACTAM 3.375 GM in DEXTROSE 5% 100 ML IV ONE (19:00)
[2020-06-04] MEDS ORDERED: DAPTOmycin 350 MG in SYRINGE 0 ML IV SCH (20:00)
[2020-06-04] MEDS: ATORVASTATIN 40 MG TAB PO SCH (20:24)
[2020-06-04] MEDS: NORTRIPTYLINE HCL 25 MG CAP PO SCH (20:25)
[2020-06-04] MEDS: traZODone HCL 100 MG TAB PO SCH (20:25)
[2020-06-04] MEDS: ENOXAPARIN INJ 40 MG/0.4 ML SYR SQ SCH (20:26)
[2020-06-05] MEDS: ACETAMINOPHEN 325 MG TAB PO PRN
[2020-06-05 06:40] LABS: Creatinine Clr Calc Pharmacy 56.8 ml/min
--- NOTE | 2020-06-05 08:08 | Urology Progress Note ---
Date of Service June 05, 2020 Assessment & Plan (1) Pyelonephritis, acute: (2) Fever: 74 year-old female patient, with multiple comorbidities, admitted with fever and acute pyelonephritis. - Patient with some clinical improvement since hospital admission. - Did have elevated temperature overnight, temp 36.8 this morning. - Labs reviewed - creatinine stable. - Blood cultures no growth after 24 hours. - Preliminary urine culture with gram negative bacilli, continue broad-spectrum antibiotics and follow cultures. - Continue with hydration and supportive care. - Plan for cystoscopy with bilateral retrograde pyelograms, possible ureteroscopy and possible biopsy on 06/18/[address] Valdez. - Recommend continuing antibiotic therapy until surgical intervention. - Will continue to follow closely with primary team. Admission and Anticipated Discharge Date Admission Date: June 03, 2020 Supervising Physician Co-Signing Physician Notes Agree with plan pt clinically improving. Culture pseudomonas levy sensitive Subjective Patient examined this morning, reports she is feeling better overall. Does report intermittent feelings of fevers and chills, although improving. Denies dysuria or hematuria. Does note urinary frequency/urgency. Denies significant flank pain. Denies nausea or vomiting. Has been out of bed without dizziness/lightheadedness. Chart review: Temperature 38.3 last evening. Repeat temperature this morning 36.8. 06/04 Wbc 9.92 Creatinine today 0.90 Preliminary urine culture with gram negative bacilli. Preliminary blood cultures no growth after 24 hours. Patient currently on IV Zosyn. Denies additional urologic concerns today. Review of Systems Constitutional: as per Subjective / HPI Respiratory: no cough and no dyspnea Gastrointestinal: as per Subjective / HPI; no nausea and no vomiting Genitourinary: as per Subjective / HPI Neurologic: as per Subjective / HPI Physical Exam Constitutional: well developed and well nourished; no acute distress and not ill appearing Respiratory: normal respiratory effort and able to speak in complete sentences; no respiratory distress and no audible wheezes Gastrointestinal (Abdomen): Inspection/Auscultation: abdomen normal to inspection; abdomen not distended Percussion/Palpation: abdomen soft; abdomen nontender and no guarding Psychiatric: Orientation: alert, oriented x 3 and cooperative Affect: euthymic affect Results & Data ([facility]) Vital Signs (Past 12 Hours) Vital Signs Temp Pulse Resp BP Pulse Ox 06/05/20 07:47 36.8 C 75 18 107/65 95 06/04/20 23:20 38.3 C H 80 16 144/60 H 95 PG Care Time/CCT Total # of Minutes Spent Total Time Spent with Patient: Total time spent is greater than 50% in coordination of care (as documented) at patient's floor/unit and/or counseling patient: Coding Level of Care Code 50340 Subseq Hosp Care Lvl 2 Diagnoses Pyelonephritis, acute N10 Fever R50.9
[2020-06-05] MEDS: buPROPion SR 150 MG TABCR PO SCH ×2 (08:35→20:51)
[2020-06-05] MEDS: OXYBUTYNIN CHLORIDE XL 5 MG TABCR PO SCH (08:35)
[2020-06-05] MEDS: VERAPAMIL HCL 240 MG TABCR PO SCH (08:35)
[2020-06-05] MEDS: ASPIRIN 81 MG ECTAB PO SCH (08:36)
[2020-06-05] MEDS: PANTOprazole 40 MG TAB PO SCH (08:36)
[2020-06-05] MEDS: LOSARTAN POTASSIUM 25 MG TAB PO SCH (08:36)
[2020-06-05] MEDS: PIPERACILLIN/TAZOBACTAM 3.375 GM in DEXTROSE 5% 100 ML IV SCH ×2 (08:48)
[2020-06-05] MEDS: INSULIN ASPART 100 UNITS/ML 3 ML PEN SC SCH ×4 (09:27→20:51)
--- NOTE | 2020-06-05 14:12 | Hospitalist Progress Note ---
Date of Service June 05, 2020 Assessment & Plan (1) Pyelonephritis, acute: 1) Acute pyelonephritis/complicated UTI Presents on admission with flank pain associated with fever and leukocytosis CT A/P with IV contrast demonstrated mild bilateral hydronephrosis, right gr eater than left. Urothelial thickening is identified within the renal pelvis bilaterally and along the course of both ureters. There is mild associated periureteral stranding. There is heterogeneous perfusion of both kidneys, right greater than left. The bladder wall is thickened and hyperemic. There is pericystic inflammation. Findings consistent with cystitis and bilateral pyelonephritis. urine culture :pseudomonas -levy sensitive Abx adjusted to IV Cefepime renal function /Cr remains stable , WBC -normal /blood culture no growth cont IV Abx during hospital stay Abx can be changed to PO Cipro ( sensitive ) given recurrent infection and hydronephrosis cont Abx for next 2 weeks nt till urologic procedure (2)Bilateral Hydroureteronephrosis: CT finding as above appreciate Urology follow up - Plan for cystoscopy with bilateral retrograde pyelograms, possible ureteroscopy and possible biopsy on 06/18/[address] Valdez. - Recommend continuing antibiotic therapy until surgical intervention. CODE STATUS: Full code Disposition: discharge home in next 1-2 days when clinically improved Admission and Anticipated Discharge Date Admission Date: June 03, 2020 Subjective Follow up visit for acute Pyelonephritis /bilateral Hydronephrosis /complicated UTI : has been afebrile overnight still feels very weak and wiped out no nausea or vomiting , appetite has improved no abdominal pain , minimum flank pain -noticeable with change of position and movement only . no urinary urgency or frequency , no hematuria offers no other complain no cough or SOB Review of Systems Review of Systems: All systems reviewed & are unremarkable except as noted in HPI & below Constitutional: + fatigue, + malaise and + weakness; no fever, no chills, no sweats, no body aches and no anorexia Respiratory: no cough, no dyspnea and no dyspnea on exertion Cardiovascular: no chest pain, no lightheadedness and no edema Gastrointestinal: no abdominal pain, no nausea, no vomiting and no chantel rrhea/loose stools flank pain has improved Genitourinary: + flank pain (improved ); no dysuria, no urinary frequency, no urinary urgency and no nocturia Physical Exam Constitutional: WD/WN, vitals as above + ill appearing Eyes: + anicteric sclerae ENMT: external ear and nose normal, oropharynx normal Neck: trachea midline, no thyromegaly Respiratory: normal respiratory effort, lungs clear to auscultation Cardiovascular: RRR, no murmur, no edema Gastrointestinal (Abdomen): Percussion/Palpation: abdomen soft; abdomen n ontender Musculoskeletal: no cyanosis or clubbing, extremities motor strength 5/5 Skin: no rashes, warm and dry Neurologic: PERRL, EOMI, accommodation nl, no face palsy, no dysarthria Psychiatric: A+Ox3, euthymic affect Results & Data Results & Data ([facility]) Vital Signs (Past 12 Hours) Vital Signs Temp Pulse Resp BP Pulse Ox 06/05/20 07:47 36.8 C 75 18 107/65 95
[2020-06-05] MEDS: CEFEPIME 2,000 MG in SYRINGE 0 ML IV SCH (17:01)
[2020-06-05] MEDS: ATORVASTATIN 40 MG TAB PO SCH (20:50)
[2020-06-05] MEDS: traZODone HCL 100 MG TAB PO SCH (20:50)
[2020-06-05] MEDS: ENOXAPARIN INJ 40 MG/0.4 ML SYR SQ SCH (20:51)
[2020-06-05] MEDS: NORTRIPTYLINE HCL 25 MG CAP PO SCH (20:51)
[2020-06-06] MEDS: ACETAMINOPHEN 325 MG TAB PO PRN (00:51)
[2020-06-06] MEDS: CEFEPIME 2,000 MG in SYRINGE 0 ML IV SCH (05:21)
[2020-06-06 07:18] LABS: Creatinine Clr Calc Pharmacy 52.2 ml/min; Est GFR (African American) 65.9; Est GFR (Non-African American) 56.8
--- NOTE | 2020-06-06 08:47 | Urology Progress Note ---
Date of Service June 06, 2020 Assessment & Plan (1) Pyelonephritis, acute: (2) Fever: 74 year-old female patient, with multiple comorbidities, admitted with fever and acute pyelonephritis. - Patient clinically progressing as expected. - Now afebrile. - Labs reviewed - creatinine stable. - Blood cultures no growth after 48 hours. - Urine culture with pansensitive Pseudomonas, currently on Cefepime with plans to transition to PO Ciprofloxacin. - Continue with hydration and supportive care. - Plan for outpatient cystoscopy with bilateral retrograde pyelograms, possible ureteroscopy and possible biopsy on 06/18/[address] Valdez. - Recommend continuing antibiotic therapy until surgical intervention. - Will continue to follow while inpatient. Admission and Anticipated Discharge Date Admission Date: June 03, 2020 Subjective Patient feeling much better this morning, reports she now feels "human again". Denies fevers or chills. Denies dysuria or hematuria. Denies urinary frequency but notes urinary urgency. Feels she is emptying her bladder well. Denies significant flank pain but does have chronic lower back pain. Denies nausea or vomiting. Has been out of bed without dizziness/lightheadedness. Chart review: Afebrile, last elevated temperature 06/04 at 2320. 06/04 Wbc 9.92 Creatinine today 0.98 Urine culture with >100,000 cfu pansensitive Pseudomonas. Preliminary blood cultures no growth after 48 hours. Patient currently on IV Cefepime. Denies additional urologic concerns today. Review of Systems Constitutional: as per Subjective / HPI; no fever and no chills Gastrointestinal: as per Subjective / HPI; no nausea and no vomiting Genitourinary: as per Subjective / HPI Neurologic: as per Subjective / HPI Physical Exam Constitutional: well developed and well nourished; no acute distress and not ill appearing Respiratory: normal respiratory effort and able to speak in complete sentences; no respiratory distress and no audible wheezes Gastrointestinal (Abdomen): Inspection/Auscultation: abdomen normal to inspection; abdomen not distended Percussion/Palpation: abdomen soft; abdomen nontender and no guarding Psychiatric: Orientation: alert, oriented x 3 and cooperative Affect: euthymic affect Genitourinary: no CVA tenderness Results & Data ([facility]) Vital Signs (Past 12 Hours) Vital Signs Temp Pulse Resp BP Pulse Ox 06/06/20 08:12 36.8 C 72 18 141/77 H 96 12/02/20 00:10 36.9 C 76 16 128/69 94 PG Care Time/CCT Total # of Minutes Spent Total Time Spent with Patient: Total time spent is greater than 50% in coordination of care (as documented) at patient's floor/unit and/or counseling patient: Coding Level of Care Code 53868 Subseq Hosp Care Lvl 2 Diagnoses Pyelonephritis, acute N10 Fever R50.9
[2020-06-06] MEDS: INSULIN ASPART 100 UNITS/ML 3 ML PEN SC SCH ×3 (09:31→17:16)
[2020-06-06] MEDS: LOSARTAN POTASSIUM 25 MG TAB PO SCH (09:32)
[2020-06-06] MEDS: ASPIRIN 81 MG ECTAB PO SCH (09:32)
[2020-06-06] MEDS: VERAPAMIL HCL 240 MG TABCR PO SCH (09:32)
[2020-06-06] MEDS: OXYBUTYNIN CHLORIDE XL 5 MG TABCR PO SCH (09:32)
[2020-06-06] MEDS: PANTOprazole 40 MG TAB PO SCH (09:32)
[2020-06-06] MEDS: buPROPion SR 150 MG TABCR PO SCH (09:33)
[2020-06-06] MEDS ORDERED: CIPROFLOXACIN 500 MG TAB PO SCH ×2 (16:00→21:00)
--- NOTE | 2020-06-06 16:08 | Discharge Summary ---
Date of Service June 06, 2020 Admission HPI Per Admitting Provider CHIEF COMPLAINT: Recurrent UTI and pyelonephritis. HISTORY OF PRESENT ILLNESS: A 74-year-old female with past medical history significant for type 2 diabetes, not on any medications, hyperlipidemia, chronic kidney disease stage III, hypertension, esophageal stricture, recurrent UTI, recurrent pyelonephritis, spondylolisthesis, migraines, normocytic anemia, recurrent major depression, generalized anxiety disorder, persistent insomnia, history of sepsis, obesity. The patient lives with her , comes because of urinary symptoms. She is having urgency and frequency of urine and also burning micturition going for some time. She just finished a course of Keflex, but is not getting better. She is also having some abdominal discomfort and back pain. She also comes with some headache. Denies any fever, chills. No nausea, no vomiting, no diarrhea or constipation. No cough, no shortness of breath, no chest pain, no blurred vision, no earache, no runny nose, no sore throat. Currently hemodynamically stable. Admission Exam Per Admitting Provider GENERAL: The patient is of moderate built, not in acute distress. VITAL SIGNS: Temperature 36.8, pulse 71, respiratory rate 18, blood pressure 159/68, oxygen 96% on room air, T-max is 38.6. HEENT: Pupils equal, round, reactive to light. Oral mucosa moist. NECK: No JVD, no neck masses. CARDIOVASCULAR: S1, S2 heard, regular rate and rhythm, no murmur, no gallop. RESPIRATORY SYSTEM: Normal AP diameter. No accessory muscle use. No wheezing, no crackles. ABDOMEN: Soft, bowel sounds present, nontender. No distention, no CVA tenderness. CENTRAL NERVOUS SYSTEM: Cranial nerves II-XII grossly intact, nonfocal. EXTREMITIES: No edema, no erythema. Principal Diagnosis COMPLICATED UTI -URINE CULTURE -PSEUDOMONAS BILATERAL HYDROURETERONEPHROSIS ( SWELLING OF BOTH KIDNEYS AND URETER ) HTN Discharge Exam Constitutional: WD/WN, vitals as above + ill appearing Eyes: + anicteric sclerae ENMT: external ear and nose normal, oropharynx normal Neck: trachea midline, no thyromegaly Respiratory: normal respiratory effort, lungs clear to auscultation Cardiovascular: RRR, no murmur, no edema Gastrointestinal: Percussion/Palpation: abdomen soft; abdomen nontender Musculoskeletal: no cyanosis or clubbing, extremities motor strength 5/5 Skin: no rashes, warm and dry Neurologic: PERRL, EOMI, accommodation nl, no face palsy, no dysarthria Psychiatric: A+Ox3, euthymic affect Discharge Data Allergies Allergy/AdvReac Type Severity Reaction Status Date / Time duloxetine [From Cymbalta] Allergy Unknown Unknown Verified 06/03/20 19:28 fluticasone [From Flonase] Allergy Unknown Unknown Verified 06/03/20 19:28 morphine [From Avinza] Allergy Unknown Unknown Verified 06/03/20 19:28 pregabalin AdvReac Intermediate Edema Verified 06/03/20 19:28 Consultations 06/03/20 19:53 ED Decision to Admit Stat 06/03/20 21:06 Consult Case Management - Discharge Planning Routine 06/04/20 08:00 Consult Urology Routine Ordered Studies 06/03/20 16:14 CT abd pelvis IV con only Stat SINGLE VIEW CHEST CLINICAL HISTORY: Sepsis. FINDINGS: An AP, portable, upright chest radiograph is compared to study dated 04/14/2020. The examination is degraded by portable technique and patient rotation. The cardiomediastinal silhouette is unremarkable. There is mild elevation of the left hemidiaphragm and bibasilar atelectasis. No airspace consolidation or large pleural effusion is identified. No pneumothorax is seen. The skeletal structures are osteopenic. The bony thorax is grossly intact. Fusion hardware is noted in the lower cervical spine. IMPRESSION: No active disease in the chest. ACT 112: Negative or not required by law. Electronically signed by: Barry Bailon M.D. 06/03/2020 5:28 PM Dictated: 06/03/208Transcribed: 06/03/[address] SCAN OF THE ABDOMEN AND PELVIS WITH IV CONTRAST CLINICAL HISTORY: Right-sided and suprapubic abdominal pain. COMPARISON STUDY: Abdominal CT dated 04/14/2020 and 09/03/2018. TECHNIQUE: Following the IV administration of 93 cc of Optiray 320, CT scan of the abdomen and pelvis is performed from the lung bases to the proximal femora. Images are reviewed in the axial, sagittal, and coronal planes. IV contrast was administered without complication. A dose lowering technique was utilized adhering to the principles of ALARA. The examination is degraded by significant metallic streak artifact from 1. Hardware in the lumbar spine and hips. CT DOSE: 651.46 mGy.cm FINDINGS: Lung bases: The heart is normal in size and without pericardial effusion. There is elevation of the left hemidiaphragm with bibasilar scarring/atelectasis. A calcified granuloma is seen in the lingula. No airspace consolidation or pleural effusion is identified. There is a small hiatal hernia. Liver: The contrast-enhanced liver is normal in size, contour, and attenuation. There is no intrahepatic biliary ductal dilatation. The hepatic veins and portal veins are patent. Gallbladder: Unremarkable. Spleen: Normal in size and attenuation. Pancreas: There is near-complete fatty atrophy of the pancreas. An 8mm pancreatic nodule versus peripancreatic lymph node is seen on image #120. Adrenal glands: Unremarkable. Kidneys: The contrast enhanced kidneys demonstrate cortical atrophy. There is mild bilateral hydronephrosis, right greater than left. Urothelial thickening is identified within the renal pelvis bilaterally and along the course of both ureters. There is mild associated periureteral stranding. There is heterogeneous perfusion of both kidneys, right greater than left. Abdominal vasculature: The abdominal aorta is normal in course and caliber noting moderate to advanced atherosclerotic calcification. Bowel: There is moderate colonic diverticulosis without CT evidence of acute diverticulitis. No bowel obstruction is seen. Mild fecal retention is noted in the colon. The appendix is not visualized. Peritoneum: There is no intraperitoneal free air or abdominal ascites. Lymphadenopathy: None. Pelvic viscera: Evaluation of the pelvis is significantly degraded by streak artifact from bilateral hip arthroplasties. The bladder wall is thickened and hyperemic. There is pericystic inflammation. The uterus is surgically absent. No adnexal lesion is seen. Skeletal structures: The skeletal structures are osteopenic. Degenerative change is noted throughout the thoracolumbar spine. There is postoperative change from laminectomy and posterior fusion seen at L2-S1. A mild chronic superior endplate compression deformity is noted in T12. No lytic or blastic lesions are seen. Bilateral hip arthroplasties are in place. IMPRESSION: 1. Findings are consistent with cystitis and bilateral pyelonephritis. Correlation with clinical findings and urinalysis will be required. 2. There is mild bilateral hydronephrosis, right greater than left. 3. There is near-complete fatty replacement of the pancreas, with an 8 mm pancreatic nodule versus peripancreatic lymph node seen in the pancreatic body. A pancreatic nodule is favored, and a small islet cell tumor could have this appearance. Nonemergent GI follow-up is recommended. ACT 112: Negative or not required by law. Electronically signed by: Barry Bailon M.D. 06/03/2020 6:58 PM Dictated: 06/03/201845Transcribed: 06/03/201845 Hospital Course (1) Pyelonephritis, acute: 1) Acute pyelonephritis/complicated UTI Presents on admission with flank pain associated with fever and leukocytosis CT A/P with IV contrast demonstrated mild bilateral hydronephrosis, right greater than left. Urothelial thickening is identified within the renal pelvis bilaterally and along the course of both ureters. There is mild associated periureteral stranding. There is heterogeneous perfusion of both kidneys, right greater than left. The bladder wall is thickened and hyperemic. There is pericystic inflammation. Findings consistent with cystitis and bilateral pyelonephritis. urine culture :pseudomonas -levy sensitive Abx adjusted to IV Cefepime renal function /Cr remains stable , WBC -normal /blood culture no growth cont IV Abx during hospital stay Abx can be changed to PO Cipro ( sensitive ) given recurrent infection and hydronephrosis cont Abx for next 2 weeks till urologic procedure (2)Bilateral Hydroureteronephrosis: CT finding as above appreciate Urology follow up - Plan for cystoscopy with bilateral retrograde pyelograms, possible ureteroscopy and possible biopsy on 06/18/[address] Valdez. - Recommend continuing antibiotic therapy until surgical intervention. CODE STATUS: Full code Disposition: Follow up with PCP Follow up with Urology Dr. Valdez Total Time Total Time Spent Total Time Spent (In Minutes): 35 minutes Total Time Includes: Examination of the Patient, Discharge Planning, Medication Reconciliation, Communication With Other Providers and Other Discharge Plan Discharge Items Patient Disposition: Home - Self-Care Reason For Visit: URINARY SYMPTOMS Discharge Diagnosis: COMPLICATED UTI -URINE CULTURE -PSEUDOMONAS BILATERAL HYDROURETERONEPHROSIS ( SWELLING OF BOTH KIDNEYS AND URETER ) Activity: Resume your previous activity Non-emergency contact: Primary Care Provider Call non-emergency contact if: you have any medication questions Follow-up/Referrals: Hernandez Valdez DO [Physician] - ( Plan for cystoscopy with bilateral retrograde pyelograms, possible ureteroscopy and possible biopsy on 06/18/[address] Valdez.) Feliciano Steen MD [Primary Care Provider] - (Date & Time 06/11/2020 12:00 PM Provider Josseline Sosa [facility] [place] ) Diet: Regular Addtl Attending Provider Instructions: You are scheduled for cystoscopy with bilateral retrograde pyelograms, possible ureteroscopy and possible biopsy on 06/18/[address] Valdez. Follow up with your primary care provider Dr. Steen on 06/11/2020 at 12:00 PM Continue Antibiotic therapy with Cipro till Urology procedure take over the counter Pro-biotics three times daily while taking antibiotic to prevent diarrhea /gastroenteritis ( c diff ) due to antibiotic please notify your family physician or seek medical attention if you develop any fever , worsening of abdominal pain Pending Studies at Discharge: No Stand-Alone Forms: My [facility] [employer], Smoking Cessation Medications and DC Order Prescriptions: New ciprofloxacin HCl 500 mg Tablet 500 mg PO Q12 13 Days Qty: 26 RF: 0 Continued atorvastatin [Lipitor] 40 mg tablet 40 mg PO HS RF: 0 bupropion HCl 150 mg tablet sustained-release 12 hr 150 mg PO BID RF: 0 meloxicam [Mobic] 15 mg tablet 15 mg PO QAM RF: 0 sumatriptan succinate [Imitrex] 50 mg Tablet 50 mg PO DIRECTED PRN (Reason: Migraine Headache) RF: 0 nortriptyline [Pamelor] 25 mg capsule 50 mg PO HS RF: 0 trazodone 100 mg tablet 100 mg PO HS RF: 0 omeprazole 20 mg capsule,delayed release(DR/EC) 20 mg PO QAM RF: 0 verapamil [Calan SR] 240 mg tablet extended release 240 mg PO QAM RF: 0 losartan [Cozaar] 25 mg tablet 25 mg PO QAM RF: 0 oxybutynin chloride 5 mg tablet extended release 24hr 5 mg PO QAM RF: 0 aspirin 81 mg Tablet,Delayed Release (Dr/Ec) 81 mg PO DAILY RF: 0 Discharge Orders: Discharge Order (Routine); Ordered 06/06/20 Ordered By: Luis Alberto Walker/Other Patient Handouts: Managing Type 2 Diabetes, A1C Admission Data Admit Date/Time: 06/03/20 19:50 Attending Provider: Luis Alberto Huddleston Admit Provider: Francisco Larson Primary Care Provider: Feliciano Steen Other Providers: Francisco Larson ; Hernandez Valdez ; Dimitry Hutchins ; Chinyere Cueva
== END 2020-06-06 18:30 | disposition home or self-care (01) | DRG 690 ==
LOC: ED 15:35 → SUATTDRO 19:50 → 3W 19:50

== ENCOUNTER 2020-08-01 07:10 | Inpatient (IN) ==
--- NOTE | 2020-07-25 12:20 | Anesthesiology Consultation ---
Date of Service July 25, 2020 Assessment & Plan (1) Encounter for pre-operative examination: Chart Review Chart Review: Acceptable Risk for Surgery and Patient NOT seen in Pre Admission Testing - Check BSG AM DOS Per nursing assessment 07/25/20, patient denies any recent travel. No known Covid positive contacts or Covid related symptoms. Covid test 07/23/20= negative Cysto, bladder biopsy 06/18/20= Done under MAC. No anesthesia issues noted per anesthesia record. History Surgery Operation Date: 07/30/20 09:05 Proposed Procedures p Right Sacroiliac Joint Fusion - Diogo Oconnell DO Height/Weight Height: 5 ft 5 in Weight: 81.647 kg Allergies Allergy/AdvReac Type Severity Reaction Status Date / Time duloxetine [From Cymbalta] Allergy Unknown Unknown Verified 07/25/20 11:45 fluticasone [From Flonase] Allergy Unknown Unknown Verified 07/25/20 11:45 pregabalin AdvReac Intermediate Edema Verified 07/25/20 11:45 Medications Home Medications Medication Instructions Recorded Confirmed Last Taken atorvastatin [Lipitor] 40 mg PO PM 09/01/18 07/25/20 06/17/20 22:00 bupropion HCl 150 mg PO BID 09/01/18 07/25/20 06/17/20 22:00 meloxicam [Mobic] 15 mg PO QAM 09/01/18 07/25/20 2 Days Ago ~06/16/20 nortriptyline [Pamelor] 50 mg PO HS 09/01/18 07/25/20 06/17/20 22:00 omeprazole 20 mg PO QAM 09/01/18 07/25/20 06/18/20 07:30 sumatriptan succinate [Imitrex] 50 mg PO DIRECTED PRN 09/01/18 07/25/20 Unknown trazodone 100 mg PO HS 09/01/18 07/25/20 06/17/20 22:00 verapamil [Calan SR] 240 mg PO QAM 09/01/18 07/25/20 06/18/20 07:00 losartan [Cozaar] 25 mg PO QAM 03/23/19 07/25/20 06/17/20 09:00 oxybutynin chloride 5 mg PO QAM 03/19/20 07/25/2006/17/20 09:00 acetaminophen [Tylenol] 650 mg PO QID PRN 06/18/20 07/25/20 06/17/20 18:00 phenazopyridine [Pyridium] 200 mg PO Q8H PRN #10 tab 06/18/20 07/25/20 Unknown tamsulosin 0.4 mg PO HS #30 cap 06/18/20 07/25/20 Unknown [id number]-[id number]-[id number] 1 tab PO DAILY PRN 07/25/20 07/25/20 Unknown [Excedrin Extra Strength] Past Medical History Medical History Anxiety Chronic back pain Increased recently Depression Diabetes mellitus type 2, diet-controlled Glucose well controlled per patient > NO MEDS Dyslipidemia Esophageal stricture NO ISSUES AT PRESENT GERD (gastroesophageal reflux disease) Well controlled and stable HTN (hypertension) Migraine Past Family History Family History Brother Myocardial infarction, Onset Age: 46 Fatal Diabetes 4 BROTHERS WITH THIS Mother Parkinson's disease Father Multiple sclerosis Past Surgical History Surgical History H/O bladder repair surgery H/O repair of left rotator cuff H/O: hysterectomy History of back surgery LUMBAR X2 History of cataract surgery BILAT History of colonoscopy History of cystoscopy bilat stents History of esophagogastroduodenoscopy (EGD) History of hip replacement left and right History of nasal surgery History of tooth extraction Hx of fusion of cervical spine ROM IS GOOD PER PT Social History Smoking Status: Never smoker Do You Dip or Chew Tobacco: No Hx Alcohol Use: No Hx Substance Use: No substance use type: does not use Testing Laboratory Results Laboratory Tests 06/04/20 07/23/20 07/23/20 05:18 14:59 14:59 WBC 8.38 Hgb 11.4 L Hct 36.5 L Plt Count 187 PT 10.7 INR 1.0 Sodium Potassium Chloride Carbon Dioxide BUN Creatinine Glucose Hemoglobin A1c 6.6 H 07/23/20 14:59 WBC Hgb Hct Plt Count PT INR Sodium 143 Potassium 4.2 Chloride 110 H Carbon Dioxide 27 BUN 27 H Creatinine 1.19 Glucose 161 H Hemoglobin A1c Anemia chronic and stable 07/23/20= URINE CULTURE: Alpha strep, not enterococcus. >100,000 CFU/ml; no sensitivities to follow T&S: A positive, antibody negative Electrocardiogram Date: 07/23/20 NSR with sinus arrhythmia at 62bpm. LAD. RBBB. Compared to EKG from Jun 03, 2020, PVCs are no longer present per cardio. Chest X-Ray Date: 07/23/20 Findings: + NAD There is mild bibasilar atelectasis
[~2020-08-01 07:10] MED LIST changes: -500ML BSSPLUS 0.5ML EPI1:1000 IRRIG ONE; -ACETAMINOPHEN 325 MG TAB PO PRN; +ACETAMINOPHEN 500 MG TAB PO SCH; -ASPI325T4 PO; -ATOR-24 PO; -ATROPINE SULFATE 0.1 MG/ML 5ML SYR IV PRN; -ATROPINE SULFATE 1% OP OINT PER APPLICATION CHARGE ONE; -ATROPINE SULFATE 1% OP SOLN 2 ML BTL ONE; +BACITRACIN INJ 50,000 UNIT VIAL ONE; -BSS FLUSH ONE; -BUPIVACAINE HCL 0.75% 10 ML AMP/VIAL ONE; +BUPIVACAINE/EPINEPHRINE 0.5% MPF 1:200,000 30 ML VIAL ONE; -BUPR-79 PO; -CEFAZOLIN SOD 1 GM VIAL ONE; -CHOL1000 PO; +CeleBREX 200 MG CAP PO SCH; -DEXAMETHASONE SOD INJ 4 MG/ML VIAL ONE; -EpINEphrine INJ 1MG/ML AMP 1 MG/ML AMP ONE; -FENTANYL CITRATE INJ 50 MCG/1 ML 2 ML VIAL IV PRN; -FENTANYL CITRATE INJ 50 MCG/1 ML 2 ML VIAL ONE; +GABAPENTIN 300 MG CAP PO SCH; -HYALURONIDASE HUMAN 150 UNIT/ML INJ ONE; -INDOCYANINE GREEN 25 MG/10 ML ONE; -LABETALOL HCL IV 5 MG/ML 20ML IV PRN; -LACTATED RINGER'S 1000ML 500 ML IV SCH; -LIDOCAINE HCL 2% 2 ML VIAL (20MG/ML) ONE; +LR 15ML/HR IV SCH; -MELO-83 PO; -MIDAZOLAM HCL 1 MG/ML 2ML VIAL ONE; -NEOMYCIN/POLYMYX/DEXAMETH OP OINT PER APP CHARGE ONE; -NORT25CA PO; -OCUCOAT 1 ML SOLN IO ONE; -ONDANSETRON INJ 2 MG/ML 2 ML VIAL IV PRN; -OXYB1TAB31 PO; -POVIDONE-IODINE OP SOLN (SURGERY CNTR CHARGING ONLY) ONE; -PRLSR20 PO; -PROPARACAINE 0.5% OP SOLN PER DROP CHARGE OPL SCH; -PROPOFOL IV EMULSION 10 MG/ML 20 ML VIAL IV ONE; -SUMA50TA15 PO; -TIMOLOL MALEATE 0.5% OP SOLN PER DROP CHARGE ONE; -TOPI100T20 PO; -TRAZ100T29 PO; -TRIAMCINOLONE ACETONIDE OPHTH 40 MG/ML VIAL STERILE IO ONE; -VANCOMYCIN HCL 1000MG/20ML VIAL ONE; -VERA1TAB60 PO; +ceFAZolin 2000MG 2,000 MG/15 ML SYR IV SCH
[2020-08-01] MEDS ORDERED: fentaNYL citrate 100 MCG/2 ML VIAL ONE (07:11)
[2020-08-01] MEDS ORDERED: MIDAZOLAM HCL 1 MG/ML 2ML VIAL ONE (07:11)
--- NOTE | 2020-08-01 07:30 | History & Physical Bridge Note ---
Date of Service August 01, 2020 History & Physical Bridge Note I have examined the patient, reviewed the History & Physical and in the interval since the performance of the History & Physical I have noted the following changes of clinical significance: no changes noted
--- NOTE | 2020-08-01 07:31 | History & Physical Report ---
Date of Service August 01, 2020 Assessment & Plan (1) Sacroiliitis: Admission and Anticipated Discharge Date Admission Date: Right sacroiliac joint fusion History of Present Illness Chief Complaint: Right sacroiliitis Primary Care Provider: Josseline Sosa DO This is a 74-year-old female well-known to me presents with chronic persistent sacroiliitis. After failing course of nonoperative care is here for surgical invention. Allergies Allergy/AdvReac Type Severity Reaction Status Date / Time duloxetine [From Cymbalta] Allergy Unknown Unknown Verified 07/25/20 11:45 fluticasone [From Flonase] Allergy Unknown Unknown Verified 07/25/20 11:45 pregabalin AdvReac Intermediate Edema Verified 07/25/20 11:45 Home Medications Medication Instructions Recorded Confirmed Type atorvastatin [Lipitor] 40 mg PO PM 09/01/18 07/25/20 History bupropion HCl 150 mg PO BID 09/01/18 07/25/20 History meloxicam [Mobic] 15 mg PO QAM 09/01/18 07/25/20 History nortriptyline [Pamelor] 50 mg PO HS 09/01/18 07/25/20 History omeprazole 20 mg PO QAM 09/01/18 07/25/20 History sumatriptan succinate [Imitrex] 50 mg PO DIRECTED PRN 09/01/18 07/25/20 History trazodone 100 mg PO HS 09/01/18 07/25/20 History verapamil [Calan SR] 240 mg PO QAM 09/01/18 07/25/20 History losartan [Cozaar] 25 mg PO QAM 03/23/19 07/25/20 History oxybutynin chloride 5 mg PO QAM 03/19/20 07/25/20 History acetaminophen [Tylenol] 650 mg PO QID PRN 06/18/20 07/25/20 History phenazopyridine [Pyridium] 200 mg PO Q8H PRN #10 tab 06/18/20 07/25/20 Rx tamsulosin 0.4 mg PO HS #30 cap 06/18/20 07/25/20 Rx [id number]-[id number]-lyblmbys 1 tab PO DAILY PRN 07/25/20 07/25/20 History [Excedrin Extra Strength] Past Med/Surg History Medical History Anxiety Chronic back pain Increased recently Depression Diabetes mellitus type 2, diet-controlled Glucose well controlled per patient > NO MEDS Dyslipidemia Esophageal stricture NO ISSUES AT PRESENT GERD (gastroesophageal reflux disease) Well controlled and stable HTN (hypertension) Migraine Surgical History H/O bladder repair surgery H/O repair of left rotator cuff H/O: hysterectomy History of back surgery LUMBAR X2 History of cataract surgery BILAT History of colonoscopy History of cystoscopy bilat stents History of esophagogastroduodenoscopy (EGD) History of hip replacement left and right History of nasal surgery History of tooth extraction Hx of fusion of cervical spine ROM IS GOOD PER PT Family History Brother Myocardial infarction, Onset Age: 46 Fatal Diabetes 4 BROTHERS WITH THIS Mother Parkinson's disease Father Multiple sclerosis Social History Smoking Status: Never smoker Second Hand Exposure: No; Do You Dip or Chew Tobacco: No; Tobacco Cessation Education Requested by Patient: No Hx Alcohol Use: No Hx Substance Use: No Preferred Language: Malaysian Communication Ability: Effective Slot Ambassador Required: No Beliefs That Will Affect Care: None marital status: Current Living Situation: Spouse Current Living Situation Comment: Home with spouse Other Information That Helps Us Care for You: No Feels Safe at Home: Yes Safety Concerns: Feels Safe At This Time Assistive Devices: Glasses and Hearing Aid - Bilateral Physical Exam Physical Exam: Patient is alert and oriented Heart regular rate and rhythm Lungs clear to auscultation
[2020-08-01] MEDS ORDERED: fentaNYL citrate 100 MCG/2 ML VIAL IV PRN (07:48)
[2020-08-01] MEDS ORDERED: LIDOCAINE HCL 2% 2 ML VIAL/AMP(20MG/ML) INFIL ONE (07:48)
[2020-08-01] MEDS ORDERED: PROPOFOL IV EMULSION 10 MG/ML 20 ML VIAL IV ONE (07:48)
[2020-08-01] MEDS ORDERED: ePHEDrine sulfate 50 MG/ML AMP IV PRN (07:48)
[2020-08-01] MEDS ORDERED: ONDANSETRON INJ 2 MG/ML 2 ML VIAL ONE (07:48)
[2020-08-01] MEDS ORDERED: HYDROmorphone INJ 1 MG/ML SYRINGE IV PRN ×2 (07:48→10:36)
[2020-08-01] MEDS ORDERED: ROCURONIUM BROMIDE 10 MG/ML 5 ML VIAL IV ONE (07:48)
[2020-08-01] MEDS ORDERED: ATROPINE SULFATE 0.1 MG/ML 10ML SYR IV PRN (07:48)
[2020-08-01] MEDS ORDERED: ONDANSETRON INJ 2 MG/ML 2 ML VIAL IV PRN ×2 (07:48→10:36)
[2020-08-01] MEDS ORDERED: DEXAMETHASONE SOD INJ 4 MG/ML VIAL ONE (08:48)
[2020-08-01] MEDS ORDERED: GLYCOPYRROLATE 0.2 MG/ML VIAL ONE (08:48)
[2020-08-01] MEDS ORDERED: NEOSTIGMINE METHYLSULFATE 1 MG/ML 10ML VIAL ONE (08:48)
--- NOTE | 2020-08-01 09:12 | Operative Report ---
Post Operative Report Pre & Post Diagnosis Operation Date: 08/01/20 08:40 Pre-Op Diagnosis: SI Joint Dysfunction Post-Op Diagnosis: SI Joint Dysfunction I identified the patient and participated in the time-out.: Yes Procedure Operation Date: 08/01/20 08:40 Actual Procedures #1 open right SI joint fusion. #2 placement of 25 mm allograft filled with in fuse collagen sponge within the right SI joint. #3 placement of 3 percutaneous globus SI joint screws CRAIN-coated. Surgeon Digoo Oconnell, Calibration Engineer Aditi Longo Estimated Blood Loss 10 Findings Consistent with Post-Op Diagnosis Specimens None Indications This is a 74-year-old female well-known to the presents with above-mentioned diagnosis after failing course of nonoperative care is here for surgical intervention Description of Procedure Patient was met with identified informed consent obtained. Patient was then take n to the operative suite underwent an patient placed in a prone position the chest table chest padded bolsters. All bony prominences well-padded eyes inspected to ensure no external pressure placed upon the. This point the right upper buttock was prepped and draped in a sterile fashion. With the assistance of fluoroscopy identified the right SI joint. Sharp dissection was performed down to and exposing the joint. I then drilled out and curetted out the right SI joint and placed a 25 mm bony allograft filled with infuse collagen sponge directly within the joint. After this was tamped into position. A second incision was placed along the right upper buttock along the lines of the posterior sacral slope. A guidewire was then placed across the proximal section of the SI joint. I verified positions with inlet outlet and lateral views. The guidewire was in appropriate position cannulas were placed and I drilled across the guidewire. I then placed a 50 mm CRAIN-coated slotted screw filled with local autograft and infuse collagen sponge across the joint. A second guidewire was placed distally in a similar fashion. A 45 mm CRAIN-coated slotted screw filled with infuse collagen sponge and local autograft was placed as well. Lastly a third screw was placed in a similar fashion the screw was 40 mm in length CRAIN- coated slotted filled with infuse collagen sponge and local autograft. All screws demonstrated excellent purchase and excellent alignment on all views. The incisions were then copiously irrigated closed with subcutaneous Vicryl and 4 Monocryl for final skin closure. Steri-Strip sterile dressings placed. Patient waken taken PACU stable condition. Please note anger was present at the entire procedure and all the patient positioning complex portions of the surgery and final skin closure. I attest to the content of the Intraoperative Record and any orders documented therein. Any exceptions are noted below.
--- NOTE | 2020-08-01 09:34 | Fluoroscopy Report ---
FL sacrum HISTORY: 74 years-old Female RT SIJ FUSION STATUS post fusion of the left SI joint COMPARISON: CT abdomen and pelvis 06/03/2020 TECHNIQUE: 3 spot fluoroscopic images of the left SI joint were obtained utilizing 88.2 seconds fluor oscopy time FINDINGS: Interval placement of 3 cannulated screws within the left SI joint which appear intact. Partially ramiro ged posterior interbody kirsten and screw fusion hardware of the lumbar spine with left hip total joint a rthroplasty. On the lateral projection, there are linear metallic density foci correlating with surgi linda sponges which are reportedly known by the surgeon per technologist notes. IMPRESSION: Fluoroscopic assistance as above. ACT 112: Negative or not required by law. The above report was generated using voice recognition software. It may contain grammatical, syntax o r spelling errors. Electronically signed by: Gregory Oquendo M.D. 08/01/2020 9:33 AM
[2020-08-01] MEDS ORDERED: PROMETHAZINE HCL 12.5 MG in SODIUM CHLORIDE 0.9% 50 ML IV PRN (10:36)
[2020-08-01] MEDS ORDERED: HYDROmorphone INJ 0.5 MG/0.5 ML SYR IV PRN (10:36)
[2020-08-01] MEDS ORDERED: diphenhydrAMINE Capsule 25 MG CAP PO PRN (10:36)
[2020-08-01] MEDS ORDERED: hydrOXYzine HCl 25 MG TAB PO PRN (10:36)
[2020-08-01] MEDS ORDERED: DO NOT ADMINISTER FLU VACCINE PRN (10:36)
[2020-08-01] MEDS ORDERED: LORazepam 0.5 MG TAB PO PRN (10:36)
[2020-08-01] MEDS ORDERED: METOCLOPRAMIDE HCL INJ 5 MG/ML 2 ML VIAL IV PRN (10:36)
[2020-08-01] MEDS ORDERED: PHENAZOPYRIDINE HCL 200 MG TAB PO PRN (10:36)
[2020-08-01] MEDS ORDERED: oxyCODONE HCL IR 5 MG TAB (IMMEDIATE RELEASE) PO PRN (10:36)
[2020-08-01] MEDS ORDERED: FAMOTIDINE 20 MG TAB PO PRN (10:36)
[2020-08-01] MEDS ORDERED: NALOXONE HCL 0.4 MG/1 ML VIAL/CARP IV PRN (10:36)
[2020-08-01] MEDS ORDERED: ACETAMINOPHEN 1,000 MG/100 ML VIAL IV PRN (10:36)
[2020-08-01] MEDS ORDERED: ONDANSETRON 4 MG OD TAB PO PRN (10:36)
[2020-08-01] MEDS ORDERED: NON-FORMULARY MEDICATION (Acetaminophen [Tylenol] 325 mg Capsule) PO PRN (10:36)
[2020-08-01] MEDS ORDERED: DO NOT ADMINISTER PNEUMOCOCCAL VACCINE PRN (10:36)
[2020-08-01] MEDS ORDERED: bisacodyL 10 MG SUPP PR PRN (10:36)
[2020-08-01] MEDS ORDERED: SUMAtriptan succinate 50 MG TAB PO PRN (10:36)
[2020-08-01] MEDS ORDERED: MAGNESIUM HYDROXIDE SUSP 30 ML UDC PO PRN (10:36)
[2020-08-01] MEDS ORDERED: LORazepam 0.5 MG/1 ML VIAL IV PRN (10:36)
[2020-08-01] MEDS ORDERED: ALUMINUM/MAGNESIUM SUSP 30 ML UDC PO PRN (10:36)
[2020-08-01] MEDS ORDERED: SOD PHOSPHATE/SOD BIPHOSPHATE ENEMA 132 ML BTL PR PRN (10:36)
--- NOTE | 2020-08-01 11:26 | Consultation ---
Date of Consultation August 01, 2020 Assessment & Plan (1) Sacroiliitis: S/P open R SI Joint Fusion POD #[address] Oconnell EBL 10 ml tolerated procedure well Pain/wound management per Ortho Activity and therapy as directed by Ortho Encourage incentive spirometry Monitor H&H (2) Diabetes mellitus type 2, diet-controlled: Diet controlled, last A1c 6.3 on 07/24/2020 Monitor bsg post operatively, if bsg consistently less < 180 can d/c (3) HTN (hypertension): Blood pressure elevated postoperatively, did not take losartan or verapamil Give losartan 25 mg x 1 now, if continues to remain elevated will also order a dose of verapamil Otherwise continue as scheduled tomorrow (4) Anemia: Preop H&H 11.4 and 36.5 Normocytic normochromic Monitor (5) Depression: Depression with anxiety Continue Wellbutrin, trazodone and nortriptyline Mood stable Disposition: Per primary Follow-up: PCP Dr. Sosa upon discharge Patient was seen and examined in collaboration with Dr. Gregg, please see addendum Thank you for this consultation. We will follow the patient with you during their hospital stay. You can reach a [facility] via pager @ [phone]. Supervising Physician Co-Signing Physician Notes SI Joint Dysfunction S/P #1 open right SI joint fusion. #2 placement of 25 mm allograft filled with infuse collagen sponge within the right SI joint. #3 placement of 3 percutaneous globus SI joint screws CRAIN-coated Postoperative hypoxia -resolved History of diabetes mellitus type 2 History of hypertension History of chronic kidney History of depression History of GERD Patient is doing okay. She was sleeping prior to my arrival. Did not appear to be any distress. Reports currently pain is well controlled. Denies any chest pain, shortness of breath or any dizziness. No abdominal pain. Currently on room air. Resume [employer] antihypertensive regimen as her systolic blood pressure was in the 150s. Continue with pharmacy glycemic control Continue with current PD medications. Pain control/anticoagulation as per primary team. She was discussed with KATIE Isaacs History of Present Illness Requesting Physician: Dr. Oconnell Reason for Consultation: Postop medical management Attending Physician: Diogo Oconnell DO History of Present Illness This is a 74-year-old female who has significant past medical history of diet-controlled T2DM, HTN, HLD, CKD stage III, depression with anxiety, history of recurrent UTIs, esophageal stricture, chronic back pain secondary to postlaminectomy syndrome who underwent elective SI joint fusion by Dr. Oconnell. She tolerated the procedure well and has no postoperative concerns. Her current pain is centralized to incision and is a 4/10, described as an ache. She denies fever, chills, sweats, lightheadedness, dizziness, syncope, chest pain, shortness of breath, cough, nausea, vomiting, abdominal pain, dysuria, increased urgency or frequency with urination, melena. Prior to procedure she denies difficulty moving bowels or passing urine. This morning prior to procedure she took Wellbutrin and omeprazole but did not take any of her BP medications. She does have history of diet-controlled diabetes. She does not take any oral hypoglycemics. Her hypertension is controlled with losartan and verapamil. Currently she does have elevated blood pressure but did not take any of her morning medications. Allergies Allergy/AdvReac Type Severity Reaction Status Date / Time duloxetine [From Cymbalta] Allergy Mild Unknown Verified 08/01/20 07:32 fluticasone [From Flonase] AdvReac Severe Nausea Verified 08/01/20 07:32 pregabalin AdvReac Intermediate Edema Verified 08/01/20 07:32 Home Medications Medication Instructions Recorded Confirmed Type atorvastatin [Lipitor] 40 mg PO PM 09/01/18 08/01/20 History bupropion HCl 150 mg PO BID 09/01/18 08/01/20 History meloxicam [Mobic] 15 mg PO QAM 09/01/18 08/01/20 History nortriptyline [Pamelor] 50 mg PO HS 09/01/18 08/01/20 History omeprazole 20 mg PO QAM 09/01/18 08/01/20 History sumatriptan succinate [Imitrex] 50 mg PO DIRECTED PRN 09/01/18 08/01/20 History trazodone 100 mg PO HS 09/01/18 08/01/20 History verapamil [Calan SR] 240 mg PO QAM 09/01/18 08/01/20 History losartan [Cozaar] 25 mg PO QAM 03/23/19 08/01/20 History oxybutynin chloride 5 mg PO QAM 03/19/20 08/01/20 History acetaminophen [Tylenol] 650 mg PO QID PRN 06/18/20 08/01/20 History phenazopyridine [Pyridium] 200 mg PO Q8H PRN #10 tab 06/18/20 08/01/20 Rx [id number] 1 tab PO DAILY PRN 07/25/20 08/01/20 History [Excedrin Extra Strength] aspirin [Aspir-81] 81 mg PO DAILY 08/01/20 08/01/20 History Patient History Medical History Anxiety Chronic back pain Increased recently Depression Diabetes mellitus type 2, diet-controlled Glucose well controlled per patient > NO MEDS Dyslipidemia Esophageal stricture NO ISSUES AT PRESENT GERD (gastroesophageal reflux disease) Well controlled and stable HTN (hypertension) Migraine Surgical History H/O bladder repair surgery H/O repair of left rotator cuff H/O: hysterectomy History of back surgery LUMBAR X2 History of cataract surgery BILAT History of colonoscopy History of cystoscopy bilat stents History of esophagogastroduodenoscopy (EGD) History of hip replacement left and right History of nasal surgery History of tooth extraction Hx of fusion of cervical spine ROM IS GOOD PER PT Family History Brother Myocardial infarction, Onset Age: 46 Fatal Diabetes 4 BROTHERS WITH THIS Mother Parkinson's disease Father Multiple sclerosis Social History Smoking Status: Never smoker Second Hand Exposure: No; Do You Dip or Chew Tobacco: No; Tobacco Cessation Education Requested by Patient: No Hx Alcohol Use: No Hx Substance Use: No Preferred Language: Tongan Communication Ability: Effective Night Assistant Required: No Beliefs That Will Affect Care: None marital status: Current Living Situation: Spouse Current Living Situation Comment: Home with spouse Other Information That Helps Us Care for You: No Feels Safe at Home: Yes Safety Concerns: Feels Safe At This Time Assistive Devices: Cane, Glasses, Hearing Aid - Left, Hearing Aid - Right and Walker Review of Systems Review of Systems: All systems reviewed & are unremarkable except as noted in HPI & below Physical Exam Physical Exam: Constitutional: WD/WN, female, vitals as above, NAD, lying in bed, pleasant, conversing easily Head: Normocephalic, Atraumatic Eyes: PERRL, conjunctivae normal, anicteric sclerae ENMT: external ear and nose normal, oropharynx normal Neck: trachea midline, no thyromegaly normal visual inspection Respiratory: on room air, normal respiratory effort, lungs clear to auscultation, no wheeze, rales, rhonchi. Normal insp/exp effort, no accessory muscle use Cardiovascular: RRR, soft 1/6 NIKKIE noted RUSB, no radiation, no edema, SCD/teds in place. vessels: no JVD or carotid bruit Chest: normal inspection of chest Abdomen: normal bowel sounds, soft, nontender, no hepatosplenomegaly Musculoskeletal: no cyanosis or clubbing, extremities motor strength 5/5 Skin: no rashes, warm and dry normal turgor Neurologic: PERRL, EOMI, accommodation nl, no face palsy, no dysarthria CN's II-XI intact bilaterally and moves all extremities Psychiatric: A+Ox3, euthymic affect Lymphatic: no cervical or axillary lymphadenopathy : deferred Results & Data ([facility]) Vital Signs (Past 12 Hours) Vital Signs Temp Pulse Pulse Resp BP BP Pulse Ox 08/01/20 10:55 71 18 149/73 H 97 08/01/20 10:25 36.5 C 76 18 164/79 H 92 08/01/20 10:05 36.6 C 74 22 172/69 H 99 08/01/20 09:55 73 22 170/66 H 99 08/01/20 09:45 74 23 162/69 H 99 08/01/20 09:35 74 17 163/68 H 100 08/01/20 09:25 36.3 C L 89 20 175/70 H 98 08/01/20 07:45 36.4 C L 85 20 199/87 H 96 Laboratory Results Preop lab studies done 07/23/2020 WBC 8.38, H&H 11.4 and 36.5, platelet 187, BUN 27, creatinine 1.19 A1c 6.3 on 07/24/2020 Diagnostic Findings Fluoro: FINDINGS: Interval placement of 3 cannulated screws within the left SI joint which appear intact. Partially imaged posterior interbody kirsten and screw fusion hardware of the lumbar spine with left hip total joint arthroplasty. On the lateral projection, there are linear metallic density foci correlating with surgical sponges which are reportedly known by the surgeon per technologist notes. IMPRESSION: Fluoroscopic assistance as above. Medications Administered Acetaminophen (Acetaminophen 500 Mg Tab) 1,000 mg PO PREOP DELORIS Stop: 08/01/20 16:00 Last Admin: 08/01/20 08:00 Dose: 1,000 mg Documented by: [id number] Celecoxib (Celebrex 200 Mg Cap) 200 mg PO PREOP DELORIS Stop: 08/01/20 16:00 Last Admin: 08/01/20 08:00 Dose: 200 mg Documented by: [id number] Gabapentin (Gabapentin 300 Mg Cap) 300 mg PO PREOP DELORIS Stop: 08/01/20 16:00 Last Admin: 08/01/20 08:00 Dose: 300 mg Documented by: [id number] Lactated Ringer's (Lr) 1,000 mls @ 15 mls/hr IV .Q24H DELORIS Stop: 08/02/20 05:59 Last Infusion: 08/01/20 08:14 Dose: 0 mls/hr Documented by: [id number] Admin: 08/01/20 07:55 Dose: 15 mls/hr Documented by: [id number] Cefazolin Sodium (Ancef 2000mg) 2,000 mg in 15 mls @ 3.75 mls/min IV PREOP DELORIS; Protocol Stop: 08/01/20 16:00 Last Admin: 08/01/20 08:14 Dose: 3.75 mls/min Documented by: [id number] Discontinued Medications Bacitracin (Bacitracin Inj 50,000 Unit Vial) Confirm Administered Dose 50,000 units .ROUTE .STK-MED ONE Stop: 08/01/20 07:08 Last Admin: 08/01/20 08:58 Dose: 50,000 units Documented by: [id number] Bupivacaine HCl/Epinephrine Bitart (Bupivacaine/Epinephrine 0.5% Mpf 1:200,000 30 Ml Vial) Confirm Administered Dose 30 ml .ROUTE .STK-MED ONE Stop: 08/01/20 07:08 Last Admin: 08/01/20 08:58 Dose: 25 ml Documented by: [id number] ECG Rate (beats per minute): 62 Findings: + RBBB
[2020-08-01] MEDS ORDERED: LOSARTAN POTASSIUM 25 MG TAB PO ONE (11:30)
[2020-08-01] MEDS: LACTATED RINGER'S 1,000 ML IV SCH ×2 (11:35→21:16)
--- NOTE | 2020-08-01 12:24 | Anesthesiology Progress Note ---
Date of Service August 01, 2020 Anesthesia Post Procedure Vital Signs Vital Signs: Temp Pulse Pulse Pulse Resp BP BP 08/01/20 11:26 69 16 08/01/20 11:25 71 16 159/74 H 08/01/20 10:55 71 18 149/73 H 08/01/20 10:25 36.5 C 76 18 164/79 H 08/01/20 10:05 36.6 C 74 22 172/69 H 08/01/20 09:55 73 22 170/66 H 08/01/20 09:45 74 23 162/69 H 08/01/20 09:35 74 17 163/68 H 08/01/20 09:25 36.3 C L 89 20 175/70 H 08/01/20 07:45 36.4 C L 85 20 199/87 H Pulse Ox 08/01/20 11:26 94 08/01/20 11:25 84 L 08/01/20 10:55 97 08/01/20 10:25 92 08/01/20 10:05 99 08/01/20 09:55 99 08/01/20 09:45 99 08/01/20 09:35 100 08/01/20 09:25 98 08/01/20 07:45 96 Pain Intensity Right Hip: Pain Intensity: 4 Back: Pain Intensity: 4 Transfer of Care Handoff Completed per policy Notes Mental Status: alert / awake / arousable and participated in evaluation Patient Amnestic to Procedure: Yes Nausea / Vomiting: adequately controlled Pain: adequately controlled Airway Patency, RR, SpO2: stable & adequate BP & HR: stable & adequate Hydration State: stable & adequate Anesthetic Complications: no major complications apparent and Pt Satisfied with anesthetic care
[2020-08-01] MEDS: ceFAZolin 2000MG 2,000 MG/15 ML SYR IV SCH ×2 (15:31→23:56)
[2020-08-01] MEDS: EXCEDRIN: ORDER AWAITING ACTION SCH ×2 (15:37→23:56)
[2020-08-01] MEDS: ACETAMINOPHEN 500 MG TAB PO PRN (15:40)
[2020-08-01] MEDS ORDERED: VERAPAMIL HCL 240 MG TABCR PO STA (16:22)
[2020-08-01] MEDS: traMADol HCL 50 MG TABLET PO PRN (21:27)
[2020-08-01] MEDS: buPROPion SR 150 MG TABCR PO SCH (22:10)
[2020-08-01] MEDS: NORTRIPTYLINE HCL 25 MG CAP PO SCH (22:10)
[2020-08-01] MEDS: traZODone HCL 100 MG TAB PO SCH (22:10)
[2020-08-01] MEDS: DOCUSATE SODIUM/SENNA 50/8.6MG TAB PO SCH (22:10)
[2020-08-01] MEDS: ATORVASTATIN 40 MG TAB PO SCH (22:10)
[2020-08-02] MEDS: POLYETHYLENE (MIRALAX) 17 GM PACK PO SCH ×3 (05:49→17:56)
[2020-08-02] MEDS: PANTOprazole 40 MG TAB PO SCH (07:39)
[2020-08-02] MEDS: LOSARTAN POTASSIUM 25 MG TAB PO SCH (07:39)
[2020-08-02] MEDS: VERAPAMIL HCL 240 MG TABCR PO SCH (07:39)
[2020-08-02] MEDS: buPROPion SR 150 MG TABCR PO SCH ×2 (07:40→21:17)
[2020-08-02] MEDS: OXYBUTYNIN CHLORIDE XL 5 MG TABCR PO SCH (07:40)
[2020-08-02] MEDS: EXCEDRIN: ORDER AWAITING ACTION SCH (08:11)
--- NOTE | 2020-08-02 09:08 | Hospitalist Progress Note ---
Date of Service August 02, 2020 Assessment & Plan (1) Sacroiliitis: S/P open R SI Joint Fusion POD #[address] Kourtney TO 10 ml Tolerated procedure well Pain/wound management per Ortho Activity and therapy as directed by Ortho Encourage incentive spirometry H/H stable Surgery planning to d/c tmrw (2) Diabetes mellitus type 2, diet-controlled: Diet controlled, last A1c 6.3 on 07/24/2020 Monitor bsg - 224 this AM. Will add novalog SSI while in-patient (3) HTN (hypertension): Normotensive. Continue home losartan and verapamil (4) Anemia: Preop H&H 11.4 and 36.5 Normocytic normochromic Monitor (5) Depression: Depression with anxiety Continue Wellbutrin, trazodone and nortriptyline Mood stable Disposition: Per primary Follow-up: PCP Dr. oSsa upon discharge Patient was seen and examined in collaboration with Dr. Gregg, please see addendum Thank you for this consultation. We will follow the patient with you during their hospital stay. You can [facility] via pager @ [phone]. Admission and Anticipated Discharge Date Admission Date: August 01, 2020 Supervising Physician Co-Signing Physician Notes SI Joint Dysfunction S/P #1 open right SI joint fusion. #2 placement of 25 mm allograft filled with infuse collagen sponge within the right SI joint. #3 placement of 3 percutaneous globus SI joint screws CRAIN-coated Postoperative hypoxia -resolved History of diabetes mellitus type 2 History of hypertension History of chronic kidney History of depression History of GERD Overall doing okay. Reports pain is well controlled. However, she was hypertensive overnight. Continue with chronic [employer] PHARMACIST medications including verapamil and losartan. Will add hydralazine 10 mg as needed every 6 hours for systolic blood pressure greater than 180. Continue to work with PT/OT. Likely to be discharged tomorrow. DVT prophylaxis as per primary team. Patient was seen and discussed with KATIE Suh Subjective Patient seen and examined in 383-1. Surgical pain much improved. No nerve pain postoperatively. Tolerated diet without issue. No fever, chills, lightheadedness, headache, chest pain, SOB, nausea, vomiting, abdominal pain, dysuria, diarrhea or constipation. Ambulating with PT without issue. Review of Systems Review of Systems: At least ten systems reviewed and negative except as noted in the HPI. Physical Exam Physical Exam: Constitutional: WD/WN, female, vitals as above, NAD, sitting in bedside chair, pleasant, conversing easily Head: Normocephalic, Atraumatic Eyes: PERRL, conjunctivae normal, anicteric sclerae ENMT: external ear and nose normal, oropharynx normal Neck: trachea midline, no thyromegaly normal visual inspection Respiratory: on room air, normal respiratory effort, lungs clear to auscultation, no wheeze, rales, rhonchi. Normal insp/exp effort, no accessory muscle use Cardiovascular: RRR, soft 1/6 NIKKIE noted RUSB, no radiation, no edema Chest: normal inspection of chest Abdomen: normal bowel sounds, soft, nontender, no hepatosplenomegaly Musculoskeletal: surgical dressing c/d/i. No cyanosis or clubbing, extremities motor strength 5/5 Skin: no rashes, warm and dry normal turgor Neurologic: PERRL, EOMI, accommodation nl, no face palsy, no dysarthria CN's II-XI intact bilaterally and moves all extremities Psychiatric: A+Ox3, euthymic affect Results & Data Results & Data ([facility]) Vital Signs (Past 12 Hours) Vital Signs Temp Pulse Resp BP BP Pulse Ox 08/02/20 07:09 36.7 C 83 18 173/75 H 93 08/02/20 04:07 36.7 C 70 18 152/71 H 93 08/01/20 23:05 36.8 C 76 16 109/67 93 Laboratory Results Short CBC 08/02/20 Range/Units 09:50 WBC 12.14 H (4.8-10.8) K/uL Hgb 11.4 L (12.0-16.0) g/dL Hct 35.4 L (37-47) % Plt Count 204 (130-400) K/uL BMP 08/02/20 09:50 Sodium 140 Potassium 4.4 Chloride 110 H Carbon Dioxide 26 BUN 27 H Creatinine 1.21 H Glucose 136 H Calcium 9.0
[2020-08-02 10:12] LABS: Hematocrit (blood only) 35.4 % (37-47); Hemoglobin 11.4 g/dL (12.0-16.0); Mean Corpuscular Hemoglobin 28.9 pg (25-34); Mean Corpuscular Hgb Conc 32.2 g/dL (32-36); Mean Corpuscular Volume 89.8 fL (80-100); Mean Platelet Volume 9.7 fL (7.4-10.4); Platelet Count 204 K/uL (130-400); RDW Coefficient of Variation 13.6 % (11.5-14.5); RDW Standard Deviation 44.5 fL (36.4-46.3); Red Blood Count 3.94 M/uL (4.2-5.4); White Blood Count 12.14 K/uL (4.8-10.8)
--- NOTE | 2020-08-02 10:23 | Orthopedic Progress Note ---
Date of Service August 02, 2020 Assessment & Plan (1) Sacroiliitis: Admission and Anticipated Discharge Date Admission Date: August 01, 2020 This time we will continue physical therapy anticipate possible discharge home tomorrow. Subjective Patient's symptoms are markedly improved. She did fall last evening but has no symptoms this morning. She is ambulating without difficulties today. Physical Exam Physical Exam: On exam I had her stand out of her chair she did so without difficulty without evidence of pain. Good strength testing. Results & Data ([facility]) Vital Signs (Past 12 Hours) Vital Signs Temp Pulse Resp BP BP Pulse Ox 08/02/20 07:09 36.7 C 83 18 173/75 H 93 08/02/20 04:07 36.7 C 70 18 152/71 H 93 08/01/20 23:05 36.8 C 76 16 109/67 93
[2020-08-02 10:36] LABS: Creatinine Clr Calc Pharmacy 43.1 ml/min; Potassium 4.4 mmol/L (3.5-5.1)
[2020-08-02] MEDS ORDERED: GLUCOSE 40% GEL 15 GM TUBE PO PRN (11:33)
[2020-08-02] MEDS ORDERED: GLUCAGON FOR INJ 1 MG VIAL SQ PRN (11:33)
[2020-08-02] MEDS ORDERED: GLUCOSE 10 TABS/TUBE PO PRN (11:33)
[2020-08-02] MEDS ORDERED: DEXTROSE 50% 50 ML SYRINGE IV PRN (11:33)
[2020-08-02] MEDS ORDERED: CARBOHYDRATES FOR HYPOGLYCEMIA PO PRN (11:33)
[2020-08-02] MEDS: INSULIN ASPART 100 UNITS/ML 3 ML PEN SC SCH ×3 (12:55→20:53)
[2020-08-02] MEDS ORDERED: hydrALAZINE HCL 20 MG/ML VIAL IV PRN (12:59)
[2020-08-02] MEDS: ACETAMINOPHEN 500 MG TAB PO PRN (14:48)
[2020-08-02] MEDS: traMADol HCL 50 MG TABLET PO PRN (21:15)
[2020-08-02] MEDS: NORTRIPTYLINE HCL 25 MG CAP PO SCH (21:16)
[2020-08-02] MEDS: traZODone HCL 100 MG TAB PO SCH (21:16)
[2020-08-02] MEDS: DOCUSATE SODIUM/SENNA 50/8.6MG TAB PO SCH (21:16)
[2020-08-02] MEDS: ATORVASTATIN 40 MG TAB PO SCH (21:17)
[2020-08-03] MEDS: POLYETHYLENE (MIRALAX) 17 GM PACK PO SCH ×3 (00:07→12:13)
[2020-08-03 06:36] LABS: Basophils # (auto) 0.02 K/uL (0-0.2); Basophils % (auto) 0.2 %; Eosinophils # (auto) 0.11 K/uL (0-0.5); Eosinophils % (auto) 1.3 %; Hemoglobin 10.5 g/dL (12.0-16.0); Immature Granulocytes # (auto) 0.03 K/uL (0.00-0.02); Immature Granulocytes % (auto) 0.4 %; Lymphocytes # (auto) 2.06 K/uL (1.2-3.4); Lymphocytes % (auto) 24.5 %; Mean Corpuscular Hemoglobin 28.6 pg (25-34); Mean Corpuscular Hgb Conc 31.8 g/dL (32-36); Mean Corpuscular Volume 89.9 fL (80-100); Mean Platelet Volume 9.7 fL (7.4-10.4); Monocytes # (auto) 0.65 K/uL (0.11-0.59); Monocytes % (auto) 7.7 %; Neutrophils # (auto) 5.55 K/uL (1.4-6.5); Neutrophils % (auto) 65.9 %; Platelet Count 153 K/uL (130-400); RDW Coefficient of Variation 13.7 % (11.5-14.5); RDW Standard Deviation 44.8 fL (36.4-46.3); Red Blood Count 3.67 M/uL (4.2-5.4); White Blood Count 8.42 K/uL (4.8-10.8)
[2020-08-03 07:04] LABS: BUN Creatinine Ratio 26.8 (10-20); Calcium 9.1 mg/dl (8.5-10.1); Creatinine Clr Calc Pharmacy 46.5 ml/min; Est GFR (Non-African American) 48.4; Potassium 4.3 mmol/L (3.5-5.1)
[2020-08-03 07:08] VITALS: TEMP 97.9
[2020-08-03] MEDS: buPROPion SR 150 MG TABCR PO SCH (08:06)
[2020-08-03] MEDS: OXYBUTYNIN CHLORIDE XL 5 MG TABCR PO SCH (08:06)
[2020-08-03] MEDS: LOSARTAN POTASSIUM 25 MG TAB PO SCH (08:06)
[2020-08-03] MEDS: VERAPAMIL HCL 240 MG TABCR PO SCH (08:06)
[2020-08-03] MEDS: PANTOprazole 40 MG TAB PO SCH (08:06)
[2020-08-03] MEDS: ACETAMINOPHEN 500 MG TAB PO PRN (08:11)
[2020-08-03] MEDS: INSULIN ASPART 100 UNITS/ML 3 ML PEN SC SCH ×2 (08:53→12:39)
--- NOTE | 2020-08-03 10:50 | Discharge Summary ---
Date of Service August 03, 2020 Admission HPI Per Admitting Provider This is a 74-year-old female well-known to me presents with chronic persistent sacroiliitis. After failing course of nonoperative care is here for surgical invention. Principal Diagnosis Sacroiliitis Discharge Data Allergies Allergy/AdvReac Type Severity Reaction Status Date / Time duloxetine [From Cymbalta] Allergy Mild Unknown Verified 08/01/20 07:32 fluticasone [From Flonase] AdvReac Severe Nausea Verified 08/01/20 07:32 pregabalin AdvReac Intermediate Edema Verified 08/01/20 07:32 Consultations 08/01/20 10:36 Consult Hospitalist Routine Procedures Performed Operation Date: 08/01/20 08:40 Actual Procedures p Right Sacroiliac Joint Fusion(Right) - Diogo Oconnell DO Ordered Studies 08/01/20 08:40 FL fluoroscopy <1hr Routine FL sacrum Routine Hospital Course (1) Sacroiliitis: Patient underwent right SI joint fusion trial results to go orthopedic for postop labor postop #1 she was up and tolerating therapy well. Progressed the postop day or 2. Pain well controlled. Subsequently discharged home. Discharge orders instructions from the chart for further review. Total Time Total Time Spent Total Time Spent (In Minutes): 20 minutes Discharge Plan Discharge Items Patient Disposition: Home - Self-Care Reason For Visit: SI Joint Dysfunction Discharge Diagnosis: Sacroiliitis Lifting: No more than 5 pounds Bathing: No limitations Weightbearing: Right toe touch Non-emergency contact: Primary Care Provider Call non-emergency contact if: you have any medication questions Follow-up/Referrals: Josseline Sosa DO [Primary Care Provider] - Diet: Regular Addtl Attending Provider Instructions: Patient is to remain toe-touch weightbearing to the right lower extremity with use of walker. She will follow-up in 2 weeks as scheduled. Pending Studies at Discharge: No Stand-Alone Forms: My GetBack, Smoking Cessation Medications and DC Order Prescriptions: New tramadol 50 mg tablet 50 mg PO Q6H PRN (Reason: pain, moderate) Qty: 20 RF: 0 Continued atorvastatin [Lipitor] 40 mg tablet 40 mg PO PM RF: 0 bupropion HCl 150 mg tablet sustained-release 12 hr 150 mg PO BID RF: 0 meloxicam [Mobic] 15 mg tablet 15 mg PO QAM RF: 0 sumatriptan succinate [Imitrex] 50 mg Tablet 50 mg PO DIRECTED PRN (Reason: Migraine Headache) RF: 0 nortriptyline [Pamelor] 25 mg capsule 50 mg PO HS RF: 0 trazodone 100 mg tablet 100 mg PO HS RF: 0 omeprazole 20 mg capsule,delayed release(DR/EC) 20 mg PO QAM RF: 0 verapamil [Calan SR] 240 mg tablet extended release 240 mg PO QAM RF: 0 losartan [Cozaar] 25 mg tablet 25 mg PO QAM RF: 0 oxybutynin chloride 5 mg tablet extended release 24hr 5 mg PO QAM RF: 0 acetaminophen [Tylenol] 325 mg Capsule 650 mg PO QID PRN (Reason: Pain) RF: 0 phenazopyridine [Pyridium] 200 mg tablet 200 mg PO Q8H PRN (Reason: pain) Qty: 10 RF: 0 Excedrin Extra Strength 250-250-65 mg Tablet 1 tab PO DAILY PRN (Reason: Pain) RF: 0 aspirin [Aspir-81] 81 mg Tablet,Delayed Release (Dr/Ec) 81 mg PO DAILY RF: 0 Discharge Orders: Discharge Order (Routine); Ordered 08/03/20 Ordered By: Diogo Oconnell Admission Data Admit Date/Time: 08/01/20 09:38 Attending Provider: Diogo Oconnell Admit Provider: Diogo Oconnell Primary Care Provider: Josseline Sosa Other Providers: Lesvia Spain ; Contreras Gregg
--- NOTE | 2020-08-03 11:00 | Hospitalist Progress Note ---
Date of Service August 03, 2020 Assessment & Plan (1) Sacroiliitis: S/P open R SI Joint Fusion POD #[address] Kourtney TO 10 ml Tolerated procedure well Pain/wound management per Ortho Activity and therapy as directed by Ortho Encourage incentive spirometry H/H stable (2) Diabetes mellitus type 2, diet-controlled: Diet controlled, last A1c 6.3 on 07/24/2020 Monitor bsg - 224 this AM. Will add novalog SSI while in-patient (3) HTN (hypertension): Normotensive. Continue home losartan and verapamil (4) Anemia: Preop H&H 11.4 and 36.5 Normocytic normochromic Monitor (5) Depression: Depression with anxiety Continue Wellbutrin, trazodone and nortriptyline Mood stable Disposition: Per primary Follow-up: PCP Dr. Sosa upon discharge Patient was seen and examined in collaboration with Dr. Gregg, please see addendum Thank you for this consultation. We will follow the patient with you during their hospital stay. You can reach a member of the [facility] Team 26/01 via pager @ [phone]. Admission and Anticipated Discharge Date Admission Date: August 01, 2020 Supervising Physician Co-Signing Physician Notes SI Joint Dysfunction S/P #1 open right SI joint fusion. #2 placement of 25 mm allograft filled with infuse collagen sponge within the right SI joint. #3 placement of 3 percutaneous globus SI joint screws CRAIN-coated Postoperative hypoxia -resolved History of diabetes mellitus type 2 History of hypertension History of chronic kidney History of depression History of GERD No new issues. Review of system is negative. Pain is well controlled. Patient have had episodes of hypertension. Recommended to follow-up with her PCP for repeat blood pressure check and adjustment for antihypertensive regimen. Patient was seen and discussed with KATIE Suh Subjective Patient seen and examined in 383-1. Surgical pain much improved. No nerve pain postoperatively. Continues to feel well despite being fatigued from sleeping poorly last night. No fever, chills, lightheadedness, headache, chest pain, SOB, nausea, vomiting, abdominal pain, dysuria, diarrhea or constipation. Ambulating with PT without issue. Ready to be discharged home. Review of Systems Review of Systems: At least ten systems reviewed and negative except as noted in the HPI. Physical Exam Physical Exam: Constitutional: WD/WN, female, vitals as above, NAD, lying in bed, pleasant, conversing easily Head: Normocephalic, Atraumatic Eyes: PERRL, conjunctivae normal, anicteric sclerae ENMT: external ear and nose normal, oropharynx normal Neck: trachea midline, no thyromegaly normal visual inspection Respiratory: on room air, normal respiratory effort, lungs clear to auscultation, no wheeze, rales, rhonchi. Normal insp/exp effort, no accessory muscle use Cardiovascular: RRR, soft 1/6 NIKKIE noted RUSB, no radiation, no edema Chest: normal inspection of chest Abdomen: normal bowel sounds, soft, nontender, no hepatosplenomegaly Musculoskeletal: surgical dressing c/d/i. No cyanosis or clubbing, extremities motor strength 5/5 Skin: no rashes, warm and dry normal turgor Neurologic: PERRL, EOMI, accommodation nl, no face palsy, no dysarthria CN's II-XI intact bilaterally and moves all extremities Psychiatric: A+Ox3, euthymic affect Results & Data Results & Data ([facility]) Vital Signs (Past 12 Hours) Vital Signs Temp Pulse Resp BP Pulse Ox 08/03/20 07:00 36.6 C 85 18 159/78 H 98 08/02/20 23:53 36.7 C 82 16 127/75 96 Laboratory Results Short CBC 08/03/20 Range/Units 06:00 WBC 8.42 (4.8-10.8) K/uL Hgb 10.5 L (12.0-16.0) g/dL Hct 33.0 L (37-47) % Plt Count 153 (130-400) K/uL [facility] 08/03/20 06:00 Sodium 139 Potassium 4.3 Chloride 107 Carbon Dioxide 26 BUN 30 H Creatinine 1.12 Glucose 107 H Calcium 9.1
[2020-08-03 11:06] VITALS: O2SAT 94
[2020-08-03 15:18] VITALS: BP 159/78; PULSE 86
== END 2020-08-03 16:19 | disposition home or self-care (01) | DRG 460 ==
LOC: ASU 07:10 → 3N 09:38

== ENCOUNTER 2020-08-10 19:21 | Inpatient (IN) ==
--- NOTE | 2020-08-10 19:59 | Emergency Department Note ---
History of Present Illness General Chief complaint: Weakness Stated complaint: WEAKNESS/BODY ACHES Time Seen by Provider: 08/10/20 19:41 Source: patient History of Present Illness Provider complaint: Fatigue and body aches Onset (ago): day(s) 2 Location: upper extremity, lower extremity, left and right Severity: moderate Pain Consistency: + constant Quality: + aching Relieved By: + none Associated symptoms: + fever/chills, + malaise, + nausea/vomiting (Nausea no vomiting) and + weakness; no chest pain, no cough, no headaches and no shortness of breath This is a 74-year-old female with a history of frequent UTIs presenting with symptoms concerning her for UTI. Whenever she gets a UTI she gets general malaise and weakness which started 2 days ago. She was last on antibiotics in June of last year for a UTI. She had a negative Covid test before her surgery last month. She complains of diffuse body aches. No modifying factors. She did have associated fever of 100.8 today. She is not vomiting but feels nauseated. She complains of generalized weakness without any focal deficits. She has had no cough, chest pain, shortness of breath, abdominal pain or diarrhea. Home Medications Medication Instructions Recorded Confirmed Type atorvastatin [Lipitor] 40 mg PO PM 09/01/18 08/01/20 History bupropion HCl 150 mg PO BID 09/01/18 08/01/20 History meloxicam [Mobic] 15 mg PO QAM 09/01/18 08/01/20 History nortriptyline [Pamelor] 50 mg PO HS 09/01/18 08/01/20 History omeprazole 20 mg PO QAM 09/01/18 08/01/20 History sumatriptan succinate [Imitrex] 50 mg PO DIRECTED PRN 09/01/18 08/01/20 History trazodone 100 mg PO HS 09/01/18 08/01/20 History verapamil [Calan SR] 240 mg PO QAM 09/01/18 08/01/20 History losartan [Cozaar] 25 mg PO QAM 03/23/19 08/01/20 History oxybutynin chloride 5 mg PO QAM 03/19/20 08/01/20 History acetaminophen [Tylenol] 650 mg PO QID PRN 06/18/20 08/01/20 History phenazopyridine [Pyridium] 200 mg PO Q8H PRN #10 tab 06/18/20 08/01/20 Rx Excedrin Extra Strength 1 tab PO DAILY PRN 07/25/20 08/01/20 History aspirin 81 mg PO DAILY 08/01/20 08/01/20 History tramadol 50 mg PO Q6H PRN #20 tab 08/02/20 Rx Allergies Allergy/AdvReac Type Severity Reaction Status Date / Time duloxetine [From Cymbalta] Allergy Mild Unknown Verified 08/01/20 07:32 fluticasone [From Flonase] AdvReac Severe Nausea Verified 08/01/20 07:32 pregabalin AdvReac Intermediate Edema Verified 08/01/20 07:32 Past Med/Surg History Medical History Anxiety Chronic back pain Increased recently Depression Diabetes mellitus type 2, diet-controlled Glucose well controlled per patient > NO MEDS Dyslipidemia Esophageal stricture NO ISSUES AT PRESENT GERD (gastroesophageal reflux disease) Well controlled and stable HTN (hypertension) Migraine Surgical History H/O bladder repair surgery H/O repair of left rotator cuff H/O: hysterectomy History of back surgery LUMBAR X2 History of cataract surgery BILAT History of colonoscopy History of cystoscopy bilat stents History of esophagogastroduodenoscopy (EGD) History of hip replacement left and right History of nasal surgery History of tooth extraction Hx of fusion of cervical spine ROM IS GOOD PER PT Family History Brother Myocardial infarction, Onset Age: 46 Fatal Diabetes 4 BROTHERS WITH THIS Mother Parkinson's disease Father Multiple sclerosis Social History Smoking Status: Never smoker Second Hand Exposure: No; Hx Alcohol Use: No Hx Substance Use: No Preferred Language: Setswana Communication Ability: Effective Concrete Pourer Required: No Beliefs That Will Affect Care: None marital status: Current Living Situation: Spouse Current Living Situation Comment: Home with spouse Feels Safe at Home: Yes Assistive Devices: Walker Review of Systems See HPI for pertinent positives & negatives. and A total of 10 systems reviewed and were otherwise negative Physical Exam Vital Signs Vital Signs - 24 hr 08/10/20 19:11 08/10/20 20:40 08/10/20 21:10 Temperature 37.8 C H Temperature Source Oral Pulse Rate 90 Pulse Rate [Right Finger] 86 Respiratory Rate 18 20 Respiratory Depth Normal Blood Pressure 197/87 H Blood Pressure [Right Arm] 155/75 H Blood Pressure Mean 123 Blood Pressure Mean [Right Arm] 101 Pulse Oximetry 98 92 95 Oxygen Delivery Method Room Air Room Air Room Air Sepsis Recent Fever Within 48 Hours Yes Sepsis New/Unexplained Change in Mental Status No Sepsis Action Taken by Nursing No Action Required Constitutional: Vital signs reviewed. Eyes: Pupils are equal round reactive to light. Conjunctiva are noninjected. ENT: Pharynx is clear without erythema or exudate. Mucous membranes are moist. Neck supple without meningeal signs. Respiratory: Clear to auscultation bilaterally. Breath sounds are equal bilaterally. Cardiovascular: Regular rate and rhythm. No rubs or gallops. GI: Soft, nondistended and nontender. Bowel sounds are present. Musculoskeletal: No peripheral edema. No CVA tenderness. Integumentary: No cyanosis. or jaundice. Neurological: The patient is awake and alert. No focal deficits. Psychiatric: Slightly anxious appearing. Course Administered Medications Discontinued Medications Piperacillin Sod/Tazobactam Sod (Zosyn) 4.5 gm in 120 mls @ 240 mls/hr IV NOW ONE Stop: 08/10/20 21:11 Last Infusion: 08/10/20 21:43 Dose: 0 mls/hr Documented by: [id number] Admin: 08/10/20 21:13 Dose: 240 mls/hr Documented by: [id number] Medical Decision Making Differential Diagnosis UTI, sepsis, pyelonephritis, bacteremia, pneumonia, metabolic derangement Medical Records Attestation: I reviewed the patient's medical records. I did perform a limited focused review of portions of the patient's old chart on the electronic medical record. The patient had back surgery last month for sacroiliitis by Dr. Oconnell. Home Medications Current Medication List: was personally reviewed by me Laboratory Data Attestation: I reviewed the patient's lab results. Result diagrams: 08/10/20 19:59 08/10/20 19:59 Lab Results 08/10/20 08/10/20 08/10/20 Range/Units 19:50 19:59 19:59 WBC 10.75 (4.8-10.8) K/uL RBC 3.79 L (4.2-5.4) M/uL Hgb 10.8 L (12.0-16.0) g/dL Hct 33.8 L (37-47) % MCV 89.2 (80-100) fL MCH 28.5 (25-34) pg MCHC 32.0 (32-36) g/dL RDW Std Deviation 45.0 (36.4-46.3) fL RDW Coeff of Cristel 13.8 (11.5-14.5) % Plt Count 163 (130-400) K/uL MPV 9.6 (7.4-10.4) fL Immature Gran % (Auto) 0.3 % Neut % (Auto) 83.6 % Lymph % (Auto) 7.6 % [place] % (Auto) 8.1 % Eos % (Auto) 0.3 % Baso % (Auto) 0.1 % Neut # (Auto) 8.99 H (1.4-6.5) K/uL Lymph # (Auto) 0.82 L (1.2-3.4) K/uL [place] # (Auto) 0.87 H (0.11-0.59) K/uL Eos # (Auto) 0.03 (0-0.5) K/uL Baso # (Auto) 0.01 (0-0.2) K/uL Immature Gran # (Auto) 0.03 H (0.00-0.02) K/uL PT 10.4 (9.0-12.0) Seconds INR 1.0 (0.9-1.1) APTT 24.1 (21.0-31.0) Seconds PTT Ratio 0.9 Sodium (136-145) mmol/L Potassium (3.5-5.1) mmol/L Chloride (98-107) mmol/L Carbon Dioxide (21-32) mmol/L Anion Gap (3-11) BUN (7-18) mg/dl Creatinine (0.6-1.2) mg/dl Est Cr Clr Drug Dosing ml/min Est GFR ( Amer) Est GFR (Non-Af Amer) BUN/Creatinine Ratio (10-20) Glucose (70-99) mg/dl Lactate (0.4-2.0) mmol/L Calcium (8.5-10.1) mg/dl Magnesium (1.8-2.4) mg/dl Total Bilirubin (0.2-1) mg/dl AST (15-37) U/L ALT (12-78) U/L Alkaline Phosphatase (45-117) U/L Troponin I (0-0.045) ng/ml Total Protein (6.4-8.2) gm/dl Albumin (3.4-5.0) gm/dl Globulin (2.5-4.0) gm/dl Albumin/Globulin Ratio (0.9-2) Urine Color Yellow Urine Appearance Turbid A (Clear) Urine pH 5.5 (4.5-7.5) Ur Specific [place] 1.018 (1.000-1.030) Urine Protein 1+ H (Negative) Urine Glucose (UA) Negative (Negative) Urine Ketones Negative (Negative) Urine Blood 2+ H (Negative) Urine Nitrite Positive A (Negative) Urine Bilirubin Negative (Negative) Urine Urobilinogen Negative (Negative) Ur Leukocyte Esterase 2+ H (Negative) Urine WBC (Auto) >30 H (0-5) /hpf Urine RBC (Auto) 10-30 H (0-4) /hpf U Hyaline Cast (Auto) 1-5 (0-5) /lpf U Epithel Cells (Auto) 10-20 H (0-5) /lpf Urine Bacteria (Auto) 4+ H (Negative) Urine Yeast Not Reportable 08/10/20 08/10/20 Range/Units 19:59 19:59 WBC (4.8-10.8) K/uL RBC (4.2-5.4) M/uL Hgb (12.0-16.0) g/dL Hct (37-47) % MCV (80-100) fL MCH (25-34) pg MCHC (32-36) g/dL RDW Std Deviation (36.4-46.3) fL RDW Coeff of Cristel (11.5-14.5) % Plt Count (130-400) K/uL MPV (7.4-10.4) fL Immature Gran % (Auto) % Neut % (Auto) % Lymph % (Auto) % [place] % (Auto) % Eos % (Auto) % Baso % (Auto) % Neut # (Auto) (1.4-6.5) K/uL Lymph # (Auto) (1.2-3.4) K/uL [place] # (Auto) (0.11-0.59) K/uL Eos # (Auto) (0-0.5) K/uL Baso # (Auto) (0-0.2) K/uL Immature Gran # (Auto) (0.00-0.02) K/uL PT (9.0-12.0) Seconds INR (0.9-1.1) APTT (21.0-31.0) Seconds PTT Ratio Sodium 138 (136-145) mmol/L Potassium 4.1 (3.5-5.1) mmol/L Chloride 108 H (98-107) mmol/L Carbon Dioxide 25 (21-32) mmol/L Anion Gap 5.0 (3-11) BUN 19 H (7-18) mg/dl Creatinine 1.16 (0.6-1.2) mg/dl Est Cr Clr Drug Dosing 46.1 ml/min Est GFR ( Amer) 53.7 Est GFR (Non-Af Amer) 46.3 BUN/Creatinine Ratio 16.3 (10-20) Glucose 169 H (70-99) mg/dl Lactate 1.5 (0.4-2.0) mmol/L Calcium 8.8 (8.5-10.1) mg/dl Magnesium 1.9 (1.8-2.4) mg/dl Total Bilirubin 0.4 (0.2-1) mg/dl AST 5 L (15-37) U/L ALT 14 (12-78) U/L Alkaline Phosphatase 126 H (45-117) U/L Troponin I < 0.015 (0-0.045) ng/ml Total Protein 7.2 (6.4-8.2) gm/dl Albumin 3.3 L (3.4-5.0) gm/dl Globulin 3.9 (2.5-4.0) gm/dl Albumin/Globulin Ratio 0.8 L (0.9-2) Urine Color Urine Appearance (Clear) Urine pH (4.5-7.5) Ur Specific [place] (1.000-1.030) Urine Protein (Negative) Urine Glucose (UA) (Negative) Urine Ketones (Negative) Urine Blood (Negative) Urine Nitrite (Negative) Urine Bilirubin (Negative) Urine Urobilinogen (Negative) Ur Leukocyte Esterase (Negative) Urine WBC (Auto) (0-5) /hpf Urine RBC (Auto) (0-4) /hpf U Hyaline Cast (Auto) (0-5) /lpf U Epithel Cells (Auto) (0-5) /lpf Urine Bacteria (Auto) (Negative) Urine Yeast Imaging Data Radiologist's Impression: XR chest 1V portable HISTORY: 74 years-old Female SEPSIS acute sepsis COMPARISON: Chest radiograph 07/23/2020 TECHNIQUE: Portable AP view the chest FINDINGS: Cardiac silhouette is mildly enlarged. Mild linear subsegmental left lung base densities. No pneumothorax, pleural effusion or overt pulmonary edema. Cervical spinal fusion hardware. IMPRESSION: 1. Cardiomegaly. 2. Mild linear subsegmental left lung base opacities suggest atelectasis. ACT 112: Negative or not required by law. The above report was generated using voice recognition software. It may contain grammatical, syntax or spelling errors. Electronically signed by: Gregory Oquendo M.D. 08/10/2020 8:08 PM Dictated: 08/10/202006 Transcribed: 08/10/202006 ECG Data Attestation: I personally reviewed and interpreted this ECG as follows: Indication: + weakness Rate (beats per minute): 91 Rhythm: + normal sinus ECG Intervals/blocks: + Right Bundle branch block ECG [place]: + Left axis deviation ECG Findings: no PVCs MDM Narrative I did evaluate the patient as noted above. Patient is presenting with generalized weakness and malaise with fever for the past 2 days. She states she has a history of frequent UTIs and feels that she might have another UTI. IV access was established. I did place an order for continuous cardiac monitoring. The monitor showed normal sinus rhythm at a rate of 88 bpm. I did order and personally review the patient's 12-lead EKG as described above. She has a right bundle branch block. I did order and personally reviewed the images of the patient's chest x-ray as described above. She has what appears to be mild linear atelectasis in the left lower lobe. I did order a urine analysis. She does have a UTI. Blood cultures were ordered. I did treat the patient with Zosyn 4.5 g IV. Prior urine cultures grew out E. coli which was pansensitive and Pseudomonas. I did order and review the patient's blood work as noted in the electronic medical record. Her white blood cell count is 10.7. Her hemoglobin is 10.8. Her last hemoglobin was 10.5 last month. Electrolytes are unremarkable. Troponin is negative. I did discuss the test results with the patient. Patient stated that she did not feel well enough to go home. She felt too weak. She will be hospitalized for further care and evaluation. I did discuss case with hospitalist and case finisher. Impression & Plan Generalized weakness, Acute UTI Discharge Plan Visit Data Chief Complaint: Weakness Stated Complaint: WEAKNESS/BODY ACHES ED Provider: Curtis Valdes Discharge Problem: Generalized weakness, Acute UTI Patient Disposition: Being Evaluated by Hospitalist Forms Stand Alone Forms: My [facility] Prescriptions Prescriptions: No Action atorvastatin [Lipitor] 40 mg tablet 40 mg PO PM RF: 0 bupropion HCl 150 mg tablet sustained-release 12 hr 150 mg PO BID RF: 0 meloxicam [Mobic] 15 mg tablet 15 mg PO QAM RF: 0 sumatriptan succinate [Imitrex] 50 mg Tablet 50 mg PO DIRECTED PRN (Reason: Migraine Headache) RF: 0 nortriptyline [Pamelor] 25 mg capsule 50 mg PO HS RF: 0 trazodone 100 mg tablet 100 mg PO HS RF: 0 omeprazole 20 mg capsule,delayed release(DR/EC) 20 mg PO QAM RF: 0 verapamil [Calan SR] 240 mg tablet extended release 240 mg PO QAM RF: 0 losartan [Cozaar] 25 mg tablet 25 mg PO QAM RF: 0 oxybutynin chloride 5 mg tablet extended release 24hr 5 mg PO QAM RF: 0 acetaminophen [Tylenol] 325 mg Capsule 650 mg PO QID PRN (Reason: Pain) RF: 0 phenazopyridine [Pyridium] 200 mg tablet 200 mg PO Q8H PRN (Reason: pain) Qty: 10 RF: 0 Excedrin Extra Strength 250-250-65 mg Tablet 1 tab PO DAILY PRN (Reason: Pain) RF: 0 aspirin 81 mg Tablet,Delayed Release (Dr/Ec) 81 mg PO DAILY RF: 0 tramadol 50 mg tablet 50 mg PO Q6H PRN (Reason: pain, moderate) Qty: 20 RF: 0 Referrals Referrals: Josseline Sosa, [Primary Care Provider] -
--- NOTE | 2020-08-10 20:09 | XRay Report ---
XR chest 1V portable HISTORY: 74 years-old Female SEPSIS acute sepsis COMPARISON: Chest radiograph 07/23/2020 TECHNIQUE: Portable AP view the chest FINDINGS: Cardiac silhouette is mildly enlarged. Mild linear subsegmental left lung base densities. No pneumoth orax, pleural effusion or overt pulmonary edema. Cervical spinal fusion hardware. IMPRESSION: 1. Cardiomegaly. 2. Mild linear subsegmental left lung base opacities suggest atelectasis. ACT 112: Negative or not required by law. The above report was generated using voice recognition software. It may contain grammatical, syntax o r spelling errors. Electronically signed by: Gergory Oquendo M.D. 08/10/2020 8:08 PM
[2020-08-10 20:11] LABS: Basophils # (auto) 0.01 K/uL (0-0.2); Basophils % (auto) 0.1 %; Eosinophils # (auto) 0.03 K/uL (0-0.5); Eosinophils % (auto) 0.3 %; Hematocrit (blood only) 33.8 % (37-47); Hemoglobin 10.8 g/dL (12.0-16.0); Immature Granulocytes # (auto) 0.03 K/uL (0.00-0.02); Immature Granulocytes % (auto) 0.3 %; Lymphocytes # (auto) 0.82 K/uL (1.2-3.4); Lymphocytes % (auto) 7.6 %; Mean Corpuscular Hemoglobin 28.5 pg (25-34); Mean Corpuscular Volume 89.2 fL (80-100); Mean Platelet Volume 9.6 fL (7.4-10.4); Monocytes # (auto) 0.87 K/uL (0.11-0.59); Monocytes % (auto) 8.1 %; Neutrophils # (auto) 8.99 K/uL (1.4-6.5); Neutrophils % (auto) 83.6 %; Platelet Count 163 K/uL (130-400); RDW Coefficient of Variation 13.8 % (11.5-14.5); Red Blood Count 3.79 M/uL (4.2-5.4); White Blood Count 10.75 K/uL (4.8-10.8)
[2020-08-10 20:25] LABS: Partial Thromboplastin Ratio 0.9; Partial Thromboplastin Time 24.1 Seconds (21.0-31.0); Prothrombin Time 10.4 Seconds (9.0-12.0)
[2020-08-10 20:26] LABS: Appearance Urine Turbid (Clear); Bacteria Urine Automated 4+ (Negative); Bilirubin Urine Negative (Negative); Blood Urine 2+ (Negative); Color Urine Yellow; Glucose Urine UA Negative (Negative); Ketones Urine Negative (Negative); Leukocyte Esterase Urine 2+ (Negative); Nitrite Urine Positive (Negative); Protein Urine 1+ (Negative); Specific Gravity Urine 1.018 (1.000-1.030); Urobilinogen Urine Negative (Negative); WBC Urine Automated >30 /hpf (0-5); pH Urine 5.5 (4.5-7.5)
[2020-08-10 20:31] LABS: Alanine Aminotransferase 14 U/L (12-78); Albumin Level 3.3 gm/dl (3.4-5.0); Aspartate Aminotransferase 5 U/L (15-37); BUN Creatinine Ratio 16.3 (10-20); Blood Urea Nitrogen 19 mg/dl (7-18); Calcium 8.8 mg/dl (8.5-10.1); Carbon Dioxide 25 mmol/L (21-32); Chloride 108 mmol/L (98-107); Creatinine Clr Calc Pharmacy 46.1 ml/min; Est GFR (African American) 53.7; Est GFR (Non-African American) 46.3; Glucose 169 mg/dl (70-99); Magnesium 1.9 mg/dl (1.8-2.4); Potassium 4.1 mmol/L (3.5-5.1); Sodium 138 mmol/L (136-145)
[2020-08-10 20:36] LABS: Albumin Globulin Ratio 0.8 (0.9-2); Alkaline Phosphatase 126 U/L (45-117); Bilirubin,Total 0.4 mg/dl (0.2-1); Globulin 3.9 gm/dl (2.5-4.0); Total Protein 7.2 gm/dl (6.4-8.2); Troponin I < 0.015 ng/ml (0-0.045)
[2020-08-10] MEDS ORDERED: PIPERACILL/TAZOBAC CONSULT ACTIVE PRN (20:42)
[2020-08-10] MEDS ORDERED: PIPERACILLIN/TAZOBACTAM 4.5 GM/120 ML BAG IV ONE (20:42)
[2020-08-11] MEDS ORDERED: ACETAMINOPHEN 325 MG TAB PO STA (00:14)
[2020-08-11] MEDS ORDERED: ONDANSETRON INJ 2 MG/ML 2 ML VIAL IV PRN (02:50)
[2020-08-11] MEDS ORDERED: SUMAtriptan succinate 50 MG TAB PO PRN (02:50)
[2020-08-11] MEDS ORDERED: POLYETHYLENE (MIRALAX) 17 GM PACK PO PRN (02:50)
[2020-08-11] MEDS ORDERED: ACETAMINOPHEN 325 MG TAB PO PRN (02:50)
[2020-08-11] MEDS ORDERED: DEXTROSE 50% 50 ML SYRINGE IV PRN (03:45)
[2020-08-11] MEDS ORDERED: GLUCAGON FOR INJ 1 MG VIAL SQ PRN (03:45)
[2020-08-11] MEDS ORDERED: GLUCOSE 40% GEL 15 GM TUBE PO PRN (03:45)
[2020-08-11] MEDS ORDERED: CARBOHYDRATES FOR HYPOGLYCEMIA PO PRN (03:45)
[2020-08-11] MEDS ORDERED: GLUCOSE 10 TABS/TUBE PO PRN (03:45)
[2020-08-11] MEDS: SODIUM CHLORIDE 0.9% 1000ML 1,000 ML IV SCH ×2 (03:52→14:04)
--- NOTE | 2020-08-11 04:56 | History and Physical Report ---
DATE OF ADMISSION: 08/11/2020 CHIEF COMPLAINT: Weakness and urinary symptoms. HISTORY OF PRESENT ILLNESS: This is a 74-year-old female with past medical history significant for type 2 diabetes, hyperlipidemia, benign pancreatic neoplasm, thyroid nodule, hypertension, history of esophageal stricture, history of recurrent UTI, history of spondylosis of lumbar region, migraines, recurrent depression, generalized anxiety disorder, history of normocytic anemia, history of recent right sacroiliac joint fusion on 08/01/2020. She lives with her . Currently after surgery, she is walking with walker and not weight bearing on right leg. She is not putting any weight on the right leg .Last couple of days, she is having urinary frequency, burning micturition, and also not feeling well, poor appetite, and today she started developing fever, which prompted her to come to the ER. She has a history of multiple UTIs in the past with Escherichia coli, pseudomonas, and MSSA. In the ER, she is hemodynamically stable, but has temp spike. No leukocytosis, but urinalysis is positive for UTI. SARS-CoV-2 negative. Chest x-ray is okay. Currently resting comfortably. Has some headache now. Denies any blurred vision, no earache, no runny nose, no sore throat, no cough, no dysphagia, no chest pain, no shortness of breath. Was nauseous earlier and had an episode of vomiting. No abdominal pain, no diarrhea or constipation. Denies any blood in the stools or black stools. Denies any blood in the urine. No rash. ALLERGIES: CYMBALTA, FLUTICASONE, PREGABALIN. PAST MEDICAL HISTORY: As mentioned above. PAST SURGICAL HISTORY: Left shoulder arthroplasty, left cysto lithotripsy, cystoscopy, cervical spurs removed and cervical fusion in 2008, left partial removal of the eye fluid, lumbar spinal fusion with bone graft, bilateral cataract surgery, total abdominal hysterectomy with removal of tubes, total hip replacement on the left side. MEDICATIONS: The patient is on nortriptyline 25-50 mg p.o. at bedtime, aspirin 81 mg p.o. daily, omeprazole 20 mg p.o. daily, losartan 25 mg p.o. daily, trazodone 100 mg p.o. at bedtime, verapamil 240 mg p.o. daily, Lipitor 40 mg p.o. daily, bupropion SR 150 mg p.o. b.i.d., oxybutynin XL 5 mg p.o. daily, meloxicam 15 mg p.o. daily, Imitrex 50 mg p.r.n. FAMILY HISTORY: Significant for brother had diabetes, heart disorder; son has hypertension; daughter has headaches. SOCIAL HISTORY: . No smoking, no alcohol, no drug use. REVIEW OF SYSTEMS: As per HPI. Rest of the review of systems negative. PHYSICAL EXAMINATION: GENERAL: The patient is of moderate build, not in acute distress. VITAL SIGNS: Temperature 37.2, pulse 91, respiratory rate 20, blood pressure 163/83, oxygen 94% on room air. HEENT: Pupils equal, round, reactive to light. Oral mucosa moist. NECK: No neck masses. CARDIOVASCULAR: S1, S2 heard, regular rate and rhythm. No murmur, no gallop. RESPIRATORY SYSTEM: Normal AP diameter. No accessory muscle use. No wheezing, no crackles. ABDOMEN: Soft, bowel sounds present, nontender. No distention. CENTRAL NERVOUS SYSTEM: Cranial nerves II through XII grossly intact, nonfocal. MUSCULOSKELETAL: Recent right sacroiliac joint fusion surgery. Surgical site is clean. No erythema or drainage seen. EXTREMITIES: No edema or erythema. LABORATORY DATA: WBC 10.7, hemoglobin 10.8, hematocrit 33.8, platelets 163. PT 10.4, INR 1, APTT 24.1. Sodium 138, potassium 4.1, chloride 108, bicarb 25, BUN 19, creatinine 1.1, serum glucose 169, lactate 1.5, calcium 8.8, magnesium 1.9, total bilirubin 0.4, AST 5, ALT 14, alkaline phosphatase 126. Troponin I less than 0.015. Urinalysis positive for nitrite and leukocyte esterase and +4 bacteria. SARS-CoV-2 RNA negative. IMAGING DATA: Chest x-ray, no acute findings. ASSESSMENT AND PLAN: This is a 74-year-old female who presents with urinary symptoms and weakness. 1. Recurrent urinary tract infection and weakness most likely from urinary tract infection: She has a history of urinary tract infection with Escherichia coli, pseudomonas, methicillin-susceptible Staphylococcus aureus. ER started empirically on Zosyn, which will bel continued. Follow the cultures. IV normal saline 100 mL per hour. Monitor in the medical floor. PT and OT when stable. 2. Recent right sacroiliac joint fusion surgery: Nonweightbearing on the right leg. PT and OT when stable. Follow up with orthopedics. 3. Type 2 diabetes: Not on any medication. Placed on diabetic diet. Follow the hemoglobin A1c levels, follow the blood sugars. 4. Gastroesophageal reflux disease, on omeprazole. 5. Hypertension, on Cozaar and verapamil. We will monitor the blood pressure. 6. Depression, generalized anxiety disorder: On trazodone, nortriptyline, Wellbutrin. 7. History of migraines, on Imitrex p.r.n. 8. History of hyperlipidemia, on Lipitor. 9. Deep vein thrombosis prophylaxis, sequential compression devices for now. 10. Disposition: Closely monitor in the medical floor. PT and OT prior to discharge. Social service to help with discharge planning. Level 1 full code. MTDD
[2020-08-11] MEDS: PIPERACILLIN/TAZOBACTAM 3.375 GM in DEXTROSE 5% 100 ML IV SCH ×3 (05:18→20:45)
[2020-08-11 05:37] LABS: Basophils # (auto) 0.01 K/uL (0-0.2); Basophils % (auto) 0.1 %; Eosinophils # (auto) 0.02 K/uL (0-0.5); Eosinophils % (auto) 0.2 %; Hemoglobin 10.7 g/dL (12.0-16.0); Immature Granulocytes # (auto) 0.03 K/uL (0.00-0.02); Immature Granulocytes % (auto) 0.3 %; Lymphocytes % (auto) 9.9 %; Mean Corpuscular Hgb Conc 32.4 g/dL (32-36); Mean Corpuscular Volume 89.4 fL (80-100); Mean Platelet Volume 9.3 fL (7.4-10.4); Monocytes # (auto) 1.14 K/uL (0.11-0.59); Monocytes % (auto) 11.2 %; Neutrophils # (auto) 7.94 K/uL (1.4-6.5); Neutrophils % (auto) 78.3 %; Platelet Count 150 K/uL (130-400); RDW Coefficient of Variation 13.7 % (11.5-14.5); RDW Standard Deviation 44.8 fL (36.4-46.3); Red Blood Count 3.69 M/uL (4.2-5.4); White Blood Count 10.14 K/uL (4.8-10.8)
[2020-08-11 06:05] LABS: BUN Creatinine Ratio 13.7 (10-20); Calcium 8.5 mg/dl (8.5-10.1); Creatinine Clr Calc Pharmacy 49.5 ml/min; Est GFR (African American) 58.6; Est GFR (Non-African American) 50.5; Magnesium 1.7 mg/dl (1.8-2.4); Potassium 4.3 mmol/L (3.5-5.1)
[2020-08-11] MEDS: traMADol HCL 50 MG TABLET PO PRN ×2 (06:36→15:55)
[2020-08-11 06:44] LABS: Estimated Average Glucose 137 mg/dl; Hemoglobin A1C 6.4 % (4.5-5.6)
[2020-08-11] MEDS ORDERED: MAGNESIUM SULFATE / D5W 1 GM/100 ML BAG IV ONE (09:00)
[2020-08-11] MEDS: INSULIN ASPART 100 UNITS/ML 3 ML PEN SC SCH ×4 (09:29→20:47)
[2020-08-11] MEDS: MELOXICAM 7.5 MG TAB PO SCH (09:32)
[2020-08-11] MEDS: buPROPion SR 150 MG TABCR PO SCH ×2 (09:32→20:46)
[2020-08-11] MEDS: PANTOprazole 40 MG TAB PO SCH (09:32)
[2020-08-11] MEDS: ASPIRIN 81 MG ECTAB PO SCH (09:33)
[2020-08-11] MEDS: OXYBUTYNIN CHLORIDE XL 5 MG TABCR PO SCH (09:33)
[2020-08-11] MEDS ORDERED: ACETAMINOPHEN 325 MG TAB PO ONE (10:16)
[2020-08-11] MEDS: VERAPAMIL HCL 240 MG TABCR PO SCH (10:18)
[2020-08-11] MEDS: LOSARTAN POTASSIUM 25 MG TAB PO SCH (10:18)
--- NOTE | 2020-08-11 10:19 | Ultrasound Report ---
RENAL ULTRASOUND HISTORY: Urinary tract infection. r/o renal stone COMPARISON: Abdomen and pelvis CT 06/03/2020. FINDINGS: Right kidney: 9.8 cm. No hydronephrosis. Mild cortical thinning. Left kidney: 10.0 cm. Partially obscured by overlying bowel gas. No hydronephrosis. Mild cortical thi nning. Bladder: Decompressed and not clearly identified. IMPRESSION: No hydronephrosis or renal stones identified. ACT 112: Negative or not required by law. Electronically signed by: Jaime Hawkins M.D. 08/11/2020 10:17 AM
--- NOTE | 2020-08-11 10:20 | Hospitalist Progress Note ---
Date of Service August 11, 2020 Assessment & Plan Admission and Anticipated Discharge Date Admission Date: August 11, 2020 Subjective Pt seen and examined in room 387. She is laying in bed, resting, complains of headache and feeling tired. Currently no chest pain or shortness of breath, she has some mild nausea but no abd. pain. Cont. IV Abx, follow up urine cultx. Will obtain Renal US. Tylenol now for CRAIN. Will cont. to closely monitor. Results & Data Results & Data ([facility]) Vital Signs (Past 12 Hours) Vital Signs Temp Pulse Pulse Pulse Resp BP BP 08/11/20 10:15 37.2 C 87 165/77 H 08/11/20 08:00 37.5 C 88 18 157/67 H 08/11/20 02:35 37.5 C 94 H 18 08/11/20 02:00 37.2 C 91 H 20 163/83 H 08/11/20 01:30 89 16 168/83 H 08/11/20 01:00 88 18 183/82 H 08/11/20 00:30 89 18 170/79 H 08/11/20 00:00 89 19 166/86 H 08/10/20 23:31 92 H 25 H 08/10/20 23:30 91 H 16 173/78 H 08/10/20 23:00 91 H 24 175/75 H BP Pulse Ox 08/11/20 10:15 08/11/20 08:00 91 08/11/20 02:35 158/78 H 96 08/11/20 02:00 95 08/11/20 01:30 94 08/11/20 01:00 94 08/11/20 00:30 95 08/11/20 00:00 91 08/10/20 23:31 91 08/10/20 23:30 92 08/10/20 23:00 91
[2020-08-11] MEDS: traZODone HCL 100 MG TAB PO SCH (20:45)
[2020-08-11] MEDS: NORTRIPTYLINE HCL 25 MG CAP PO SCH (20:46)
[2020-08-11] MEDS: ATORVASTATIN 40 MG TAB PO SCH (20:46)
[2020-08-12] MEDS: SODIUM CHLORIDE 0.9% 1000ML 1,000 ML IV SCH ×3 (00:07→19:27)
[2020-08-12] MEDS: PIPERACILLIN/TAZOBACTAM 3.375 GM in DEXTROSE 5% 100 ML IV SCH (05:34)
[2020-08-12 06:52] LABS: Hematocrit (blood only) 28.5 % (37-47); Hemoglobin 9.3 g/dL (12.0-16.0); Mean Corpuscular Hemoglobin 28.8 pg (25-34); Mean Corpuscular Hgb Conc 32.6 g/dL (32-36); Mean Corpuscular Volume 88.2 fL (80-100); Mean Platelet Volume 9.7 fL (7.4-10.4); Platelet Count 157 K/uL (130-400); RDW Coefficient of Variation 13.7 % (11.5-14.5); RDW Standard Deviation 44.5 fL (36.4-46.3); Red Blood Count 3.23 M/uL (4.2-5.4)
[2020-08-12 07:20] LABS: BUN Creatinine Ratio 13.1 (10-20); Calcium 8.2 mg/dl (8.5-10.1); Creatinine Clr Calc Pharmacy 56.3 ml/min; Est GFR (African American) 68.4; Magnesium 1.8 mg/dl (1.8-2.4); Phosphorus 2.4 mg/dl (2.5-4.9); Potassium 3.6 mmol/L (3.5-5.1)
--- NOTE | 2020-08-12 08:04 | Hospitalist Progress Note ---
Date of Service August 12, 2020 Assessment & Plan (1) Acute UTI: (2) Generalized weakness: (3) Previous back surgery: This is a 74-year-old female who presents with urinary symptoms and weakness. 1. Recurrent urinary tract infection and weakness most likely from urinary tract infection: She has a history of urinary tract infection with Escherichia coli, pseudomonas, methicillin-susceptible Staphylococcus aureus. Hx of renal stones and multiple procedures w/ urology. ER started empirically on Zosyn, which was continued. Renal US obtained - negative for stones/ hydronephrosis Ucltx - E.coli, switch Abx to Cipro IV normal saline 100 mL per hour. Monitor in the medical floor. PT and OT 2. Recent right sacroiliac joint fusion surgery: Nonweightbearing on the right leg. PT and OT when stable. Follow up with orthopedics. 3. Type 2 diabetes: Not on any medication. Placed on diabetic diet. Current hemoglobin A1c 6.4%, follow the blood sugars. 4. Gastroesophageal reflux disease, on omeprazole. 5. Hypertension, on Cozaar and verapamil. We will monitor the blood pressure. 6. Depression, generalized anxiety disorder: On trazodone, nortriptyline, Wellbutrin. 7. History of migraines, on Imitrex p.r.n. 8. History of hyperlipidemia, on Lipitor. DVT ppx, SCDs for now. Disposition: Closely monitor in the medical floor. PT and OT prior to discharge. Admission and Anticipated Discharge Date Admission Date: August 11, 2020 Subjective Pt seen in follow up of recurrent compl. UTI She is laying in bed, resting, feeling tired. Currently no chest pain or shortness of breath Review of Systems Review of Systems: All systems reviewed & are unremarkable except as noted in HPI & below Constitutional: + fatigue; no fever and no chills Respiratory: no cough and no dyspnea Cardiovascular: no chest pain and no palpitations Gastrointestinal: no abdominal pain, no nausea and no vomiting Physical Exam Physical Exam: GENERAL: The patient is of moderate build, not in acute distress. HEENT: NC/AT, Pupils equal, round, reactive to light. Oral mucosa moist. NECK: No neck masses. CARDIOVASCULAR: S1, S2 heard, regular rate and rhythm. No murmur, no gallop. RESPIRATORY SYSTEM: Normal AP diameter. No accessory muscle use. No wheezing, no crackles. ABDOMEN: Soft, bowel sounds present, nontender. No distention. NEURO: alert and oriented x3. speech fluent, no facial asymmetry, moves extremities MUSCULOSKELETAL: Recent right sacroiliac joint fusion surgery. Surgical site is clean. No erythema or drainage seen. EXTREMITIES: No edema or erythema. Results & Data Results & Data ([facility]) Vital Signs (Past 12 Hours) Vital Signs Temp Pulse Resp BP BP Pulse Ox 08/12/20 07:28 36.8 C 73 20 123/54 L 93 08/11/20 23:42 37.2 C 80 14 147/69 H 93 Laboratory Results 08/12/20 08/12/20 08/11/20 Range/Units 06:27 06:27 20:44 WBC 6.80 (4.8-10.8) K/uL RBC 3.23 L (4.2-5.4) M/uL Hgb 9.3 L (12.0-16.0) g/dL Hct 28.5 L (37-47) % MCV 88.2 (80-100) fL MCH 28.8 (25-34) pg MCHC 32.6 (32-36) g/dL RDW Std Deviation 44.5 (36.4-46.3) fL RDW Coeff of Cristel 13.7 (11.5-14.5) % Plt Count 157 (130-400) K/uL MPV 9.7 (7.4-10.4) fL Sodium 141 (136-145) mmol/L Potassium 3.6 D (3.5-5.1) mmol/L Chloride 110 H (98-107) mmol/L Carbon Dioxide 22 (21-32) mmol/L Anion Gap 9.0 (3-11) BUN 12 (7-18) mg/dl Creatinine 0.95 (0.6-1.2) mg/dl Est Cr Clr Drug Dosing 56.3 ml/min Est GFR ( Amer) 68.4 Est GFR (Non-Af Amer) 59.0 BUN/Creatinine Ratio 13.1 (10-20) Glucose 124 H (70-99) mg/dl POC Glucose 188 H (70-99) mg/dl Calcium 8.2 L (8.5-10.1) mg/dl Phosphorus 2.4 L (2.5-4.9) mg/dl Magnesium 1.8 (1.8-2.4) mg/dl 08/11/20 08/11/20 08/11/20 Range/Units 17:20 12:39 08:32 WBC (4.8-10.8) K/uL RBC (4.2-5.4) M/uL Hgb (12.0-16.0) g/dL Hct (37-47) % MCV (80-100) fL MCH (25-34) pg MCHC (32-36) g/dL RDW Std Deviation (36.4-46.3) fL RDW Coeff of Cristel (11.5-14.5) % Plt Count (130-400) K/uL MPV (7.4-10.4) fL Sodium (136-145) mmol/L Potassium (3.5-5.1) mmol/L Chloride (98-107) mmol/L Carbon Dioxide (21-32) mmol/L Anion Gap (3-11) BUN (7-18) mg/dl Creatinine (0.6-1.2) mg/dl Est Cr Clr Drug Dosing ml/min Est GFR ( Amer) Est GFR (Non-Af Amer) BUN/Creatinine Ratio (10-20) Glucose (70-99) mg/dl POC Glucose 130 H 140 H 152 H (70-99) mg/dl Calcium (8.5-10.1) mg/dl Phosphorus (2.5-4.9) mg/dl Magnesium (1.8-2.4) mg/dl Medications Administered Current Inpatient Medications Acetaminophen (Acetaminophen 325 Mg Tab) 650 mg PO Q4H PRN PRN Reason: pain/fever Stop: 09/10/20 02:49 Aspirin (Aspirin 81 Mg Ectab) 81 mg PO DAILY [facility] Stop: 09/10/20 08:59 Last Admin: 08/11/20 09:33 Dose: 81 mg Documented by: Atorvastatin Calcium (Atorvastatin 40 Mg Tab) 40 mg PO PM [facility] Stop: 09/10/20 20:59 Last Admin: 08/11/20 20:46 Dose: 40 mg Documented by: Bupropion HCl (Bupropion Sr 150 Mg Tabcr) 150 mg PO BID [facility] Stop: 09/10/20 08:59 Last Admin: 08/11/20 20:46 Dose: 150 mg Documented by: Dextrose (Dextrose 50% 50 Ml Syringe) 25 - 50 ml IV UD PRN; Protocol PRN Reason: Hypoglycemia Protocol Stop: 09/10/20 03:44 Glucagon (Glucagon For Inj 1 Mg Vial) 1 mg SQ UD PRN; Protocol PRN Reason: Hypoglycemia Protocol Stop: 09/10/20 03:44 Glucose (Glucose 40% Gel 15 Gm Tube) 15 - 30 gm PO UD PRN; Protocol PRN Reason: Hypoglycemia Protocol Stop: 09/10/20 03:44 Glucose (Glucose 10 Tabs/Tube) 4 - 8 tabs PO UD PRN; Protocol PRN Reason: Hypoglycemia Protocol Stop: 09/10/20 03:44 Sodium Chloride (Nss 1000ml) 1,000 mls @ 100 mls/hr IV .Q10H [facility] Stop: 09/10/20 02:49 Last Admin: 08/12/20 00:07 Dose: 100 mls/hr Documented by: Piperacillin Sod/Tazobactam (Sod 3.375 gm/ Dextrose) 115 mls @ 28.75 mls/hr IV Q8H [facility]; Protocol Stop: 08/21/20 03:59 Last Admin: 08/12/20 05:34 Dose: 28.8 mls/hr Documented by: Insulin Aspart (Insulin Aspart 100 Units/Ml 3 Ml Pen) 0 units SC ACHS [facility] Stop: 09/10/20 07:29 Last Admin: 08/11/20 20:47 Dose: 2 units Documented by: Losartan Potassium (Losartan Potassium 25 Mg Tab) [facility] mg [place] [facility] Stop: 09/10/20 08:59 Last Admin: 08/11/20 10:18 Dose: 25 mg Documented by: Meloxicam (Meloxicam 7.5 Mg Tab) 15 mg PO QAM [facility] Stop: 09/10/20 08:59 Last Admin: 08/11/20 09:32 Dose: 15 mg Documented by: Miscellaneous (Carbohydrates For Hypoglycemia ) 15 - 30 gm PO UD PRN PRN Reason: Hypoglycemia Treatment Stop: 09/10/20 03:44 Miscellaneous Information (Piperacill/Tazobac Consult Active) 1 ea N/A UD PRN PRN Reason: Consult Stop: 09/09/20 20:41 Nortriptyline HCl (Nortriptyline Hcl 25 Mg Cap) 50 mg PO HS [facility] Stop: 09/10/20 20:59 Last Admin: 08/11/20 20:46 Dose: 50 mg Documented by: Ondansetron HCl (Ondansetron Inj 2 Mg/Ml 2 Ml Vial) 4 mg IV Q6H PRN PRN Reason: Nausea Stop: 09/10/20 02:49 Oxybutynin Chloride (Oxybutynin Chloride Xl 5 Mg Tabcr) [address] [facility] Stop: 09/10/20 08:59 Last Admin: 08/11/20 09:33 Dose: 5 mg Documented by: Pantoprazole Sodium (Pantoprazole 40 Mg Tab) [address] [facility] Stop: 09/10/20 08:59 Last Admin: 08/11/20 09:32 Dose: 40 mg Documented by: Polyethylene Glycol (Polyethylene (Miralax) 17 Gm Pack) 17 gm PO DAILY PRN PRN Reason: Constipation Stop: 09/10/20 02:49 Sumatriptan Succinate (Sumatriptan Succinate 50 Mg Tab) 50 mg PO PRN PRN PRN Reason: Migraine Headache Stop: 09/10/20 02:49 Tramadol HCl (Tramadol Hcl 50 Mg Tablet) 50 mg PO Q6H PRN PRN Reason: pain, moderate Stop: 09/10/20 02:49 Last Admin: 08/11/20 15:55 Dose: 50 mg Documented by: Trazodone HCl (Trazodone Hcl 100 Mg Tab) 100 mg PO [facility] Stop: 09/10/20 20:59 Last Admin: 08/11/20 20:45 Dose: 100 mg Documented by: Verapamil HCl (Verapamil Hcl 240 Mg Tabcr) [address] [facility] Stop: 09/10/20 08:59 Last Admin: 08/11/20 10:18 Dose: 240 mg Documented by:
[2020-08-12] MEDS: VERAPAMIL HCL 240 MG TABCR PO SCH (08:59)
[2020-08-12] MEDS: ASPIRIN 81 MG ECTAB PO SCH (09:00)
[2020-08-12] MEDS: LOSARTAN POTASSIUM 25 MG TAB PO SCH (09:00)
[2020-08-12] MEDS: OXYBUTYNIN CHLORIDE XL 5 MG TABCR PO SCH (09:00)
[2020-08-12] MEDS: MELOXICAM 7.5 MG TAB PO SCH (09:01)
[2020-08-12] MEDS: PANTOprazole 40 MG TAB PO SCH (09:01)
[2020-08-12] MEDS: buPROPion SR 150 MG TABCR PO SCH ×2 (09:01→20:22)
[2020-08-12] MEDS: INSULIN ASPART 100 UNITS/ML 3 ML PEN SC SCH ×4 (09:25→21:28)
[2020-08-12] MEDS: CIPROFLOXACIN / D5W 400 MG/200 ML BAG IV SCH ×2 (09:30→20:16)
[2020-08-12] MEDS ORDERED: LIDOCAINE 5% 1 PATCH TD PRN (10:02)
[2020-08-12] MEDS ORDERED: POTASSIUM CHLORIDE CRTAB 20 MEQ TABCR PO ONE (10:30)
[2020-08-12] MEDS ORDERED: MAGNESIUM SULFATE / D5W 1 GM/100 ML BAG IV ONE (10:30)
--- NOTE | 2020-08-12 11:06 | Electrocardiogram Report ---
Test Reason : Blood Pressure : / mmHG Vent. Rate : 091 BPM Atrial Rate : 091 BPM P-R Int : 148 ms QRS Dur : 134 ms QT Int : 382 ms P-R-T Axes : 009 -50 022 degrees QTc Int : 469 ms Normal sinus rhythm Left axis deviation Right bundle branch block Abnormal ECG When compared with ECG of 23-JUL-2020 15:27, No significant change was found Confirmed by Rafi Chandra ([id number]) on 08/12/2020 11:06:14 AM Referred By: REFERRED SELF Confirmed By:Rafi Chandra
[2020-08-12] MEDS: ADVANCED PROBIOTIC 1250 MG CAPSULE PO SCH (11:15)
[2020-08-12] MEDS: POT PHOSPHATE MONOBASIC W/ SOD TAB PO SCH ×3 (12:36→20:21)
[2020-08-12] MEDS: NORTRIPTYLINE HCL 25 MG CAP PO SCH (20:21)
[2020-08-12] MEDS: ATORVASTATIN 40 MG TAB PO SCH (20:22)
[2020-08-12] MEDS: traZODone HCL 100 MG TAB PO SCH (20:23)
[2020-08-13 06:07] LABS: Hematocrit (blood only) 28.5 % (37-47); Hemoglobin 9.1 g/dL (12.0-16.0); Mean Corpuscular Hemoglobin 28.3 pg (25-34); Mean Corpuscular Hgb Conc 31.9 g/dL (32-36); Mean Corpuscular Volume 88.8 fL (80-100); Mean Platelet Volume 9.5 fL (7.4-10.4); Platelet Count 143 K/uL (130-400); RDW Coefficient of Variation 13.7 % (11.5-14.5); RDW Standard Deviation 45.1 fL (36.4-46.3); Red Blood Count 3.21 M/uL (4.2-5.4); White Blood Count 5.22 K/uL (4.8-10.8)
[2020-08-13] MEDS: SODIUM CHLORIDE 0.9% 1000ML 1,000 ML IV SCH (06:26)
[2020-08-13 06:45] LABS: BUN Creatinine Ratio 16.5 (10-20); Calcium 8.6 mg/dl (8.5-10.1); Creatinine Clr Calc Pharmacy 56.9 ml/min; Est GFR (African American) 69.3; Est GFR (Non-African American) 59.8; Magnesium 1.9 mg/dl (1.8-2.4); Potassium 3.9 mmol/L (3.5-5.1)
[2020-08-13 06:47] LABS: Phosphorus 3.4 mg/dl (2.5-4.9)
--- NOTE | 2020-08-13 08:10 | Hospitalist Progress Note ---
Date of Service August 13, 2020 Assessment & Plan (1) Acute UTI: (2) Generalized weakness: (3) Previous back surgery: This is a 74-year-old female who presents with urinary symptoms and weakness. 1. Recurrent urinary tract infection and weakness most likely from urinary tract infection: She has a history of urinary tract infection with Escherichia coli, pseudomonas, methicillin-susceptible Staphylococcus aureus. Hx of renal stones and multiple procedures w/ urology. ER started empirically on Zosyn, which was continued. Renal US obtained - negative for stones/ hydronephrosis Ucltx - E.coli, switched Abx to Cipro IV normal saline 100 mL per hour, will now stop. Monitor in the medical floor. PT and OT - ok to return home after UTI managed 2. Recent right sacroiliac joint fusion surgery: Nonweightbearing on the right leg. PT and OT when stable. Follow up with orthopedics. 3. Type 2 diabetes: Not on any medication. Placed on diabetic diet. Current hemoglobin A1c 6.4%, follow the blood sugars. 4. Gastroesophageal reflux disease, on omeprazole. 5. Hypertension, on Cozaar and verapamil. We will monitor the blood pressure. 6. Depression, generalized anxiety disorder: On trazodone, nortriptyline, Wellbutrin. 7. History of migraines, on Imitrex p.r.n. 8. History of hyperlipidemia, on Lipitor. DVT ppx, SCDs for now. Disposition: Closely monitor in the medical floor. PT and OT prior to discharge. Admission and Anticipated Discharge Date Admission Date: August 11, 2020 Subjective Pt seen in follow up of recurrent compl. UTI She is sitting up in chair, resting, feeling tired but reports that she is feeling better Currently no chest pain or shortness of breath, no abd. pain, n/v Reports frequent urination Discussed w/ PT at the bedside - pt ok to return home after UTI managed Review of Systems Review of Systems: All systems reviewed & are unremarkable except as noted in HPI & below Constitutional: + fatigue; no fever and no chills Respiratory: no cough and no dyspnea Cardiovascular: no chest pain, no palpitations and no edema Gastrointestinal: no abdominal pain, no nausea and no vomiting Genitourinary: + urinary frequency Physical Exam Physical Exam: GENERAL: The patient is of moderate build, not in acute distress. HEENT: NC/AT, Pupils equal, round, reactive to light. Oral mucosa moist. NECK: No neck masses. CARDIOVASCULAR: S1, S2 heard, regular rate and rhythm. No murmur, no gallop. RESPIRATORY SYSTEM: Normal AP diameter. No accessory muscle use. No wheezing, no crackles. ABDOMEN: Soft, bowel sounds present, nontender. No distention. NEURO: alert and oriented x3. speech fluent, no facial asymmetry, moves extremities MUSCULOSKELETAL: Recent right sacroiliac joint fusion surgery. Surgical site is clean. No erythema or drainage seen. EXTREMITIES: No edema or erythema. Results & Data Results & Data ([facility]) Vital Signs (Past 12 Hours) Vital Signs Temp Pulse Resp BP Pulse Ox 08/13/20 07:48 36.7 C 75 16 148/78 H 95 08/12/20 23:11 36.9 C 81 14 144/71 H 98 Laboratory Results 08/13/20 08/13/20 08/12/20 Range/Units 05:29 05:29 20:26 WBC 5.22 (4.8-10.8) K/uL RBC 3.21 L (4.2-5.4) M/uL Hgb 9.1 L (12.0-16.0) g/dL Hct 28.5 L (37-47) % MCV 88.8 (80-100) fL MCH 28.3 (25-34) pg MCHC 31.9 L (32-36) g/dL RDW Std Deviation 45.1 (36.4-46.3) fL RDW Coeff of Cristel 13.7 (11.5-14.5) % Plt Count 143 (130-400) K/uL MPV 9.5 (7.4-10.4) fL Sodium 143 (136-145) mmol/L Potassium 3.9 (3.5-5.1) mmol/L Chloride 114 H (98-107) mmol/L Carbon Dioxide 22 (21-32) mmol/L Anion Gap 7.0 (3-11) BUN 15 (7-18) mg/dl Creatinine 0.94 (0.6-1.2) mg/dl Est Cr Clr Drug Dosing 56.9 ml/min Est GFR ( Amer) 69.3 Est GFR (Non-Af Amer) 59.8 BUN/Creatinine Ratio 16.5 (10-20) Glucose 125 H (70-99) mg/dl POC Glucose 171 H (70-99) mg/dl Calcium 8.6 (8.5-10.1) mg/dl Phosphorus 3.4 D (2.5-4.9) mg/dl Magnesium 1.9 (1.8-2.4) mg/dl 08/12/20 08/12/20 Range/Units 17:03 12:12 WBC (4.8-10.8) K/uL RBC (4.2-5.4) M/uL Hgb (12.0-16.0) g/dL Hct (37-47) % MCV (80-100) fL MCH (25-34) pg MCHC (32-36) g/dL RDW Std Deviation (36.4-46.3) fL RDW Coeff of Cristel (11.5-14.5) % Plt Count (130-400) K/uL MPV (7.4-10.4) fL Sodium (136-145) mmol/L Potassium (3.5-5.1) mmol/L Chloride (98-107) mmol/L Carbon Dioxide (21-32) mmol/L Anion Gap (3-11) BUN (7-18) mg/dl Creatinine (0.6-1.2) mg/dl Est Cr Clr Drug Dosing ml/min Est GFR ( Amer) Est GFR (Non-Af Amer) BUN/Creatinine Ratio (10-20) Glucose (70-99) mg/dl POC Glucose 117 H 92 (70-99) mg/dl Calcium (8.5-10.1) mg/dl Phosphorus (2.5-4.9) mg/dl Magnesium (1.8-2.4) mg/dl Medications Administered Current Inpatient Medications Acetaminophen (Acetaminophen 325 Mg Tab) 650 mg PO Q4H PRN PRN Reason: pain/fever Stop: 09/10/20 02:49 Aspirin (Aspirin 81 Mg Ectab) 81 mg PO DAILY [facility] Stop: 09/10/20 08:59 Last Admin: 08/12/20 09:00 Dose: 81 mg Documented by: Atorvastatin Calcium (Atorvastatin 40 Mg Tab) 40 mg PO PM [facility] Stop: 09/10/20 20:59 Last Admin: 08/12/20 20:22 Dose: 40 mg Documented by: Bupropion HCl (Bupropion Sr 150 Mg Tabcr) 150 mg PO BID [facility] Stop: 09/10/20 08:59 Last Admin: 08/12/20 20:22 Dose: 150 mg Documented by: Dextrose (Dextrose 50% 50 Ml Syringe) 25 - 50 ml IV UD PRN; Protocol PRN Reason: Hypoglycemia Protocol Stop: 09/10/20 03:44 Glucagon (Glucagon For Inj 1 Mg Vial) 1 mg SQ UD PRN; Protocol PRN Reason: Hypoglycemia Protocol Stop: 09/10/20 03:44 Glucose (Glucose 40% Gel 15 Gm Tube) 15 - 30 gm PO UD PRN; Protocol PRN Reason: Hypoglycemia Protocol Stop: 09/10/20 03:44 Glucose (Glucose 10 Tabs/Tube) 4 - 8 tabs PO UD PRN; Protocol PRN Reason: Hypoglycemia Protocol Stop: 09/10/20 03:44 Sodium Chloride (Nss 1000ml) 1,000 mls @ 100 mls/hr IV .Q10H [facility] Stop: 09/10/20 02:49 Last Admin: 08/13/20 06:26 Dose: 100 mls/hr Documented by: Ciprofloxacin (Cipro / D5w) 400 mg in 200 mls @ 100 mls/hr IV Q12H [facility]; Protocol Stop: 08/22/20 08:59 Last Infusion: 08/12/20 22:16 Dose: Infused Documented by: Insulin Aspart (Insulin Aspart 100 Units/Ml 3 Ml Pen) 0 units SC ACHS [facility] Stop: 09/10/20 07:29 Last Admin: 08/12/20 21:28 Dose: 300 units Documented by: Lactobacillus Acidoph/Casei/Rhamnos (Advanced Probiotic 1250 Mg Capsule) 2 cap PO DAILY [facility] Stop: 09/11/20 10:59 Last Admin: 08/12/20 11:15 Dose: 2 cap Documented by: Lidocaine (Lidocaine 5% 1 Patch) 1 patch TD QAM PRN PRN Reason: pain/ muscle spasm, L flank Stop: 09/11/20 10:14 Losartan Potassium (Losartan Potassium 25 Mg Tab) 25 mg PO QAM [facility] Stop: 09/10/20 08:59 Last Admin: 08/12/20 09:00 Dose: 25 mg Documented by: Meloxicam (Meloxicam 7.5 Mg Tab) 15 mg PO QAM [facility] Stop: 09/10/20 08:59 Last Admin: 08/12/20 09:01 Dose: 15 mg Documented by: Miscellaneous (Carbohydrates For Hypoglycemia ) 15 - 30 gm PO UD PRN PRN Reason: Hypoglycemia Treatment Stop: 09/10/20 03:44 Miscellaneous (Remove Lidoderm Patch) 1 ea N/A DAILY@2100 [facility] Stop: 09/11/20 20:59 Last Admin: 08/12/20 20:25 Dose: Not Given Documented by: Nortriptyline HCl (Nortriptyline Hcl 25 Mg Cap) 50 mg PO [facility] Stop: 09/10/20 20:59 Last Admin: 08/12/20 20:21 Dose: 50 mg Documented by: Ondansetron HCl (Ondansetron Inj 2 Mg/Ml 2 Ml Vial) 4 mg IV Q6H PRN PRN Reason: Nausea Stop: 09/10/20 02:49 Oxybutynin Chloride (Oxybutynin Chloride Xl 5 Mg [facility]cr) [facility] Stop: 09/10/20 08:59 Last Admin: 08/12/20 09:00 Dose: 5 mg Documented by: Pantoprazole Sodium (Pantoprazole 40 Mg Tab) [facility] Stop: 09/10/20 08:59 Last Admin: 08/12/20 09:01 Dose: 40 mg Documented by: Polyethylene Glycol (Polyethylene (Miralax) 17 Gm Pack) 17 gm PO DAILY PRN PRN Reason: Constipation Stop: 09/10/20 02:49 Potassium Phosphate (Pot Phosphate Monobasic W/ Sod Tab) 1 tab PO QID [facility] Stop: 09/11/20 12:59 Last Admin: 08/12/20 20:21 Dose: 1 tab Documented by: Sumatriptan Succinate (Sumatriptan Succinate 50 Mg Tab) 50 mg PO PRN PRN PRN Reason: Migraine Headache Stop: 09/10/20 02:49 Tramadol HCl (Tramadol Hcl 50 Mg Tablet) 50 mg PO Q6H PRN PRN Reason: pain, moderate Stop: 09/10/20 02:49 Last Admin: 08/11/20 15:55 Dose: 50 mg Documented by: Trazodone HCl (Trazodone Hcl 100 Mg Tab) 100 mg PO [facility] Stop: 09/10/20 20:59 Last Admin: 08/12/20 20:23 Dose: 100 mg Documented by: Verapamil HCl (Verapamil Hcl 240 Mg Tabcr) [facility] Stop: 09/10/20 08:59 Last Admin: 08/12/20 08:59 Dose: 240 mg Documented by:
[2020-08-13] MEDS: LOSARTAN POTASSIUM 25 MG TAB PO SCH (09:19)
[2020-08-13] MEDS: ASPIRIN 81 MG ECTAB PO SCH (09:19)
[2020-08-13] MEDS: ADVANCED PROBIOTIC 1250 MG CAPSULE PO SCH (09:19)
[2020-08-13] MEDS: VERAPAMIL HCL 240 MG TABCR PO SCH (09:19)
[2020-08-13] MEDS: POT PHOSPHATE MONOBASIC W/ SOD TAB PO SCH ×4 (09:20→22:41)
[2020-08-13] MEDS: buPROPion SR 150 MG TABCR PO SCH ×2 (09:20→22:41)
[2020-08-13] MEDS: OXYBUTYNIN CHLORIDE XL 5 MG TABCR PO SCH (09:20)
[2020-08-13] MEDS: PANTOprazole 40 MG TAB PO SCH (09:21)
[2020-08-13] MEDS: MELOXICAM 7.5 MG TAB PO SCH (09:21)
[2020-08-13] MEDS: CIPROFLOXACIN / D5W 400 MG/200 ML BAG IV SCH ×2 (09:21→20:18)
[2020-08-13] MEDS: INSULIN ASPART 100 UNITS/ML 3 ML PEN SC SCH ×4 (10:38→22:08)
[2020-08-13] MEDS: traZODone HCL 100 MG TAB PO SCH (20:19)
[2020-08-13] MEDS: ATORVASTATIN 40 MG TAB PO SCH (20:19)
[2020-08-13] MEDS: NORTRIPTYLINE HCL 25 MG CAP PO SCH (22:09)
[2020-08-14 07:03] LABS: Hematocrit (blood only) 27.7 % (37-47); Hemoglobin 8.9 g/dL (12.0-16.0); Mean Corpuscular Hemoglobin 28.2 pg (25-34); Mean Corpuscular Hgb Conc 32.1 g/dL (32-36); Mean Corpuscular Volume 87.7 fL (80-100); Mean Platelet Volume 9.6 fL (7.4-10.4); Platelet Count 172 K/uL (130-400); RDW Coefficient of Variation 13.8 % (11.5-14.5); RDW Standard Deviation 44.1 fL (36.4-46.3); Red Blood Count 3.16 M/uL (4.2-5.4); White Blood Count 4.97 K/uL (4.8-10.8)
[2020-08-14 07:40] LABS: BUN Creatinine Ratio 20.1 (10-20); Calcium 8.7 mg/dl (8.5-10.1); Creatinine Clr Calc Pharmacy 55.7 ml/min; Est GFR (African American) 67.5; Est GFR (Non-African American) 58.3; Potassium 3.6 mmol/L (3.5-5.1)
[2020-08-14] MEDS: POT PHOSPHATE MONOBASIC W/ SOD TAB PO SCH ×2 (08:55→14:28)
[2020-08-14] MEDS: buPROPion SR 150 MG TABCR PO SCH (08:56)
[2020-08-14] MEDS: PANTOprazole 40 MG TAB PO SCH (08:56)
[2020-08-14] MEDS: LOSARTAN POTASSIUM 25 MG TAB PO SCH (08:56)
[2020-08-14] MEDS: ADVANCED PROBIOTIC 1250 MG CAPSULE PO SCH (08:56)
[2020-08-14] MEDS: OXYBUTYNIN CHLORIDE XL 5 MG TABCR PO SCH (08:56)
[2020-08-14] MEDS: ASPIRIN 81 MG ECTAB PO SCH (08:56)
[2020-08-14] MEDS: VERAPAMIL HCL 240 MG TABCR PO SCH (08:57)
[2020-08-14] MEDS: CIPROFLOXACIN / D5W 400 MG/200 ML BAG IV SCH (08:57)
[2020-08-14] MEDS: MELOXICAM 7.5 MG TAB PO SCH (08:58)
--- NOTE | 2020-08-14 09:53 | Hospitalist Progress Note ---
Date of Service August 14, 2020 Assessment & Plan (1) Acute UTI: (2) Generalized weakness: (3) Previous back surgery: This is a 74-year-old female who presents with urinary symptoms and weakness. 1. Recurrent UTI and weakness most likely from urinary tract infection: She has a history of urinary tract infection with Escherichia coli, pseudomonas, methicillin-susceptible Staphylococcus aureus. Hx of renal stones and multiple procedures w/ urology. ER started empirically on Zosyn, which was continued. Renal US obtained - negative for stones/ hydronephrosis Ucltx - E.coli, switched Abx to Cipro, will also cont. as outpt Follow up w/ Dr. Solis (urology) as outpt IV normal saline 100 mL per hour, initially. Monitor in the medical floor. PT and OT - ok to return home 2. Recent right sacroiliac joint fusion surgery: Nonweightbearing on the right leg. PT and OT when stable. Follow up with orthopedics. 3. Type 2 diabetes: Not on any medication. Placed on diabetic diet. Current hemoglobin A1c 6.4%, follow the blood sugars. 4. Gastroesophageal reflux disease, on omeprazole. 5. Hypertension, on Cozaar and verapamil. We will monitor the blood pressure. 6. Depression, generalized anxiety disorder: On trazodone, nortriptyline, We llbutrin. 7. History of migraines, on Imitrex p.r.n. 8. History of hyperlipidemia, on Lipitor. DVT ppx, SCDs for now. Disposition: Plan to [place] home Admission and Anticipated Discharge Date Admission Date: August 11, 2020 Subjective Pt seen in follow up of recurrent compl. UTI She is laying in bed, resting, reports that she is feeling better Currently no chest pain or shortness of breath, no abd. pain, n/v Reports frequent urination (since June) Discussed w/ PT at the bedside - pt ok to return home after UTI managed Discussed w/ pt to follow up w/ Dr. Solis (urology) Review of Systems Review of Systems: All systems reviewed & are unremarkable except as noted in HPI & below Constitutional: no fever and no chills Respiratory: no cough and no dyspnea Cardiovascular: no chest pain and no palpitations Gastrointestinal: no abdominal pain, no nausea and no vomiting Genitourinary: + urinary frequency Physical Exam Physical Exam: GENERAL: The patient is of moderate build, not in acute distress. HEENT: NC/AT, Pupils equal, round, reactive to light. Oral mucosa moist. NECK: No neck masses. CARDIOVASCULAR: S1, S2 heard, regular rate and rhythm. No murmur, no gallop. RESPIRATORY SYSTEM: Normal AP diameter. No accessory muscle use. No wheezing, no crackles. ABDOMEN: Soft, bowel sounds present, nontender. No distention. NEURO: alert and oriented x3. speech fluent, no facial asymmetry, moves extremities MUSCULOSKELETAL: Recent right sacroiliac joint fusion surgery. Surgical site is clean. No erythema or drainage seen. EXTREMITIES: No edema or erythema. Results & Data Results & Data ([facility]) Vital Signs (Past 12 Hours) Vital Signs Temp Pulse Pulse Resp BP Pulse Ox 08/14/20 07:36 36.6 C 82 19 114/67 95 08/13/20 23:20 36.7 C 59 L 16 98/54 L 94 Laboratory Results 08/14/20 08/14/20 08/14/20 Range/Units 08:02 06:03 06:03 WBC 4.97 (4.8-10.8) K/uL RBC 3.16 L (4.2-5.4) M/uL Hgb 8.9 L (12.0-16.0) g/dL Hct 27.7 L (37-47) % MCV 87.7 (80-100) fL MCH 28.2 (25-34) pg MCHC 32.1 (32-36) g/dL RDW Std Deviation 44.1 (36.4-46.3) fL RDW Coeff of Cristel 13.8 (11.5-14.5) % Plt Count 172 (130-400) K/uL MPV 9.6 (7.4-10.4) fL Sodium 143 (136-145) mmol/L Potassium 3.6 (3.5-5.1) mmol/L Chloride 113 H (98-107) mmol/L Carbon Dioxide 21 (21-32) mmol/L Anion Gap 10.0 (3-11) BUN 19 H (7-18) mg/dl Creatinine 0.96 (0.6-1.2) mg/dl Est Cr Clr Drug Dosing 55.7 ml/min Est GFR ( Amer) 67.5 Est GFR (Non-Af Amer) 58.3 BUN/Creatinine Ratio 20.1 H (10-20) Glucose 116 H (70-99) mg/dl POC Glucose 131 H (70-99) mg/dl Calcium 8.7 (8.5-10.1) mg/dl 08/13/20 08/13/20 08/13/20 Range/Units 20:45 17:19 12:20 WBC (4.8-10.8) K/uL RBC (4.2-5.4) M/uL Hgb (12.0-16.0) g/dL Hct (37-47) % MCV (80-100) fL MCH (25-34) pg MCHC (32-36) g/dL RDW Std Deviation (36.4-46.3) fL RDW Coeff of Cristel (11.5-14.5) % Plt Count (130-400) K/uL MPV (7.4-10.4) fL Sodium (136-145) mmol/L Potassium (3.5-5.1) mmol/L Chloride (98-107) mmol/L Carbon Dioxide (21-32) mmol/L Anion Gap (3-11) BUN (7-18) mg/dl Creatinine (0.6-1.2) mg/dl Est Cr Clr Drug Dosing ml/min Est GFR ( Amer) Est GFR (Non-Af Amer) BUN/Creatinine Ratio (10-20) Glucose (70-99) mg/dl POC Glucose 139 H 138 H 84 (70-99) mg/dl Calcium (8.5-10.1) mg/dl Medications Administered Current Inpatient Medications Acetaminophen (Acetaminophen 325 Mg Tab) 650 mg PO Q4H PRN PRN Reason: pain/fever Stop: 09/10/20 02:49 Aspirin (Aspirin 81 Mg Ectab) 81 mg PO DAILY DELORIS Stop: 09/10/20 08:59 Last Admin: 08/14/20 08:56 Dose: 81 mg Documented by: Atorvastatin Calcium (Atorvastatin 40 Mg Tab) 40 mg PO PM DELORIS Stop: 09/10/20 20:59 Last Admin: 08/13/20 20:19 Dose: 40 mg Documented by: Bupropion HCl (Bupropion Sr 150 Mg Tabcr) 150 mg PO BID DELORIS Stop: 09/10/20 08:59 Last Admin: 08/14/20 08:56 Dose: 150 mg Documented by: Dextrose (Dextrose 50% 50 Ml Syringe) 25 - 50 ml IV UD PRN; Protocol PRN Reason: Hypoglycemia Protocol Stop: 09/10/20 03:44 Glucagon (Glucagon For Inj 1 Mg Vial) 1 mg SQ UD PRN; Protocol PRN Reason: Hypoglycemia Protocol Stop: 09/10/20 03:44 Glucose (Glucose 40% Gel 15 Gm Tube) 15 - 30 gm PO UD PRN; Protocol PRN Reason: Hypoglycemia Protocol Stop: 09/10/20 03:44 Glucose (Glucose 10 Tabs/Tube) 4 - 8 tabs PO UD PRN; Protocol PRN Reason: Hypoglycemia Protocol Stop: 09/10/20 03:44 Ciprofloxacin (Cipro / D5w) 400 mg in 200 mls @ 100 mls/hr IV Q12H [facility]; Protocol Stop: 08/22/20 08:59 Last Admin: 08/14/20 08:57 Dose: 100 mls/hr Documented by: Insulin Aspart (Insulin Aspart 100 Units/Ml 3 Ml Pen) 0 units SC ACHS [facility] Stop: 09/10/20 07:29 Last Admin: 08/13/20 22:08 Dose: Not Given Documented by: Lactobacillus Acidoph/Casei/Rhamnos (Advanced Probiotic 1250 Mg Capsule) 2 cap PO DAILY [facility] Stop: 09/11/20 10:59 Last Admin: 08/14/20 08:56 Dose: 2 cap Documented by: Lidocaine (Lidocaine 5% 1 Patch) 1 patch TD QAM PRN PRN Reason: pain/ muscle spasm, L flank Stop: 09/11/20 10:14 Losartan Potassium (Losartan Potassium 25 Mg Tab) 25 mg PO QAM [facility] Stop: 09/10/20 08:59 Last Admin: 08/14/20 08:56 Dose: 25 mg Documented by: Meloxicam (Meloxicam 7.5 Mg Tab) 15 mg PO QAM [facility] Stop: 09/10/20 08:59 Last Admin: 08/14/20 08:58 Dose: 15 mg Documented by: Miscellaneous (Carbohydrates For Hypoglycemia ) 15 - 30 gm PO UD PRN PRN Reason: Hypoglycemia Treatment Stop: 09/10/20 03:44 Miscellaneous (Remove Lidoderm Patch) 1 ea N/A DAILY@2100 [facility] Stop: 09/11/20 20:59 Last Admin: 08/13/20 22:41 Dose: Not Given Documented by: Nortriptyline HCl (Nortriptyline Hcl 25 Mg Cap) 50 mg PO HS [facility] Stop: 09/10/20 20:59 Last Admin: 08/13/20 22:09 Dose: 50 mg Documented by: Ondansetron HCl (Ondansetron Inj 2 Mg/Ml 2 Ml Vial) 4 mg IV Q6H PRN PRN Reason: Nausea Stop: 09/10/20 02:49 Oxybutynin Chloride (Oxybutynin Chloride Xl 5 Mg Tabcr) 5 mg PO QAM [facility] Stop: 09/10/20 08:59 Last Admin: 08/14/20 08:56 Dose: 5 mg Documented by: Pantoprazole Sodium (Pantoprazole 40 Mg Tab) 40 mg PO QAM [facility] Stop: 09/10/20 08:59 Last Admin: 08/14/20 08:56 Dose: 40 mg Documented by: Polyethylene Glycol (Polyethylene (Miralax) 17 Gm Pack) 17 gm PO DAILY PRN PRN Reason: Constipation Stop: 09/10/20 02:49 Potassium Chloride (Potassium Chloride Crtab 20 Meq Tabcr) 40 meq PO NOW STA Stop: 08/14/20 09:51 Potassium Phosphate (Pot Phosphate Monobasic W/ Sod Tab) 1 tab PO QID DELORIS Stop: 09/11/20 12:59 Last Admin: 08/14/20 08:55 Dose: 1 tab Documented by: Sumatriptan Succinate (Sumatriptan Succinate 50 Mg Tab) 50 mg PO PRN PRN PRN Reason: Migraine Headache Stop: 09/10/20 02:49 Tramadol HCl (Tramadol Hcl 50 Mg Tablet) 50 mg PO Q6H PRN PRN Reason: pain, moderate Stop: 09/10/20 02:49 Last Admin: 08/11/20 15:55 Dose: 50 mg Documented by: Trazodone HCl (Trazodone Hcl 100 Mg Tab) 100 mg PO HS [facility] Stop: 09/10/20 20:59 Last Admin: 08/13/20 20:19 Dose: 100 mg Documented by: Verapamil HCl (Verapamil Hcl 240 Mg Tabcr) 240 mg PO QAM [facility] Stop: 09/10/20 08:59 Last Admin: 08/14/20 08:57 Dose: 240 mg Documented by:
[2020-08-14] MEDS: INSULIN ASPART 100 UNITS/ML 3 ML PEN SC SCH ×2 (10:29→12:12)
[2020-08-14] MEDS ORDERED: POTASSIUM CHLORIDE CRTAB 20 MEQ TABCR PO ONE (10:30)
--- NOTE | 2020-08-14 13:08 | Discharge Summary ---
Date of Service August 14, 2020 Admission HPI Per Admitting Provider This is a 74-year-old female with past medical history significant for type 2 diabetes, hyperlipidemia, benign pancreatic neoplasm, thyroid nodule, hypertension, history of esophageal stricture, history of recurrent UTI, history of spondylosis of lumbar region, migraines, recurrent depression, generalized anxiety disorder, history of normocytic anemia, history of recent right sacroiliac joint fusion on 08/01/2020. She lives with her . Currently after surgery, she is walking with walker and not weight bearing on right leg. She is not putting any weight on the right leg .Last couple of days, she is having urinary frequency, burning micturition, and also not feeling well, poor appetite, and today she started developing fever, which prompted her to come to the ER. She has a history of multiple UTIs in the past with Escherichia coli, pseudomonas, and MSSA. In the ER, she is hemodynamically stable, but has temp spike. No leukocytosis, but urinalysis is positive for UTI. SARS-CoV-2 negative. Chest x-ray is okay. Currently resting comfortably. Has some headache now. Denies any blurred vision, no earache, no runny nose, no sore throat, no cough, no dysphagia, no chest pain, no shortness of breath. Was nauseous earlier and had an episode of vomiting. No abdominal pain, no diarrhea or constipation. Denies any blood in the stools or black stools. Denies any blood in the urine. No rash. Admission Exam Per Admitting Provider GENERAL: The patient is of moderate build, not in acute distress. VITAL SIGNS: Temperature 37.2, pulse 91, respiratory rate 20, blood pressure 163/83, oxygen 94% on room air. HEENT: Pupils equal, round, reactive to light. Oral mucosa moist. NECK: No neck masses. CARDIOVASCULAR: S1, S2 heard, regular rate and rhythm. No murmur, no gallop. RESPIRATORY SYSTEM: Normal AP diameter. No accessory muscle use. No wheezing, no crackles. ABDOMEN: Soft, bowel sounds present, nontender. No distention. CENTRAL NERVOUS SYSTEM: Cranial nerves II through XII grossly intact, nonfocal. MUSCULOSKELETAL: Recent right sacroiliac joint fusion surgery. Surgical site is clean. No erythema or drainage seen. EXTREMITIES: No edema or erythema. Principal Diagnosis UTI (recurrent) Discharge Exam GENERAL: The patient is of moderate build, not in acute distress. HEENT: NC/AT, Pupils equal, round, reactive to light. Oral mucosa moist. NECK: No neck masses. CARDIOVASCULAR: S1, S2 heard, regular rate and rhythm. No murmur, no gallop. RESPIRATORY SYSTEM: Normal AP diameter. No accessory muscle use. No wheezing, no crackles. ABDOMEN: Soft, bowel sounds present, nontender. No distention. NEURO: alert and oriented x3. speech fluent, no facial asymmetry, moves extremities MUSCULOSKELETAL: Recent right sacroiliac joint fusion surgery. Surgical site is clean. No erythema or drainage seen. EXTREMITIES: No edema or erythema. Discharge Data Allergies Allergy/AdvReac Type Severity Reaction Status Date / Time duloxetine [From Cymbalta] Allergy Mild Unknown Verified 08/10/20 23:24 fluticasone [From Flonase] AdvReac Severe Nausea Verified 08/10/20 23:24 pregabalin AdvReac Intermediate Edema Verified 08/10/20 23:24 Consultations 08/10/20 20:42 ED Decision to Admit Stat 08/11/20 02:50 Consult Case Management - Discharge Planning Routine Ordered Studies 08/11/20 08:38 US renal/blad retro comp Urgent FINDINGS: Right kidney: 9.8 cm. No hydronephrosis. Mild cortical thinning. Left kidney: 10.0 cm. Partially obscured by overlying bowel gas. No hydronephrosis. Mild cortical thinning. Bladder: Decompressed and not clearly identified. IMPRESSION: No hydronephrosis or renal stones identified. Hospital Course (1) Acute UTI: (2) Generalized weakness: (3) Previous back surgery: This is a 74-year-old female who presents with urinary symptoms and weakness. 1. Recurrent UTI and weakness most likely from urinary tract infection: She has a history of urinary tract infection with Escherichia coli, pseudomonas, methicillin-susceptible Staphylococcus aureus. Hx of renal stones and multiple procedures w/ urology. ER started empirically on Zosyn, which was continued. Renal US obtained - negative for stones/ hydronephrosis Ucltx - E.coli, switched Abx to Cipro, will also cont. as outpt Follow up w/ Dr. Solis (urology) as outpt IV normal saline 100 mL per hour, initially. Monitor in the medical floor. PT and OT - ok to return home 2. Recent right sacroiliac joint fusion surgery: Nonweightbearing on the right leg. PT and OT. Follow up with orthopedics. 3. Type 2 diabetes: Not on any medication. Placed on diabetic diet. Current hemoglobin A1c 6.4%, follow the blood sugars.Follow up as outpt 4. Gastroesophageal reflux disease, on omeprazole. 5. Hypertension, on Cozaar and verapamil. We will monitor the blood pressure. 6. Depression, generalized anxiety disorder: On trazodone, nortriptyline, Wellbutrin. 7. History of migraines, on Imitrex p.r.n. 8. History of hyperlipidemia, on Lipitor. DVT ppx, SCDs for now. Disposition: Plan to [place] home Total Time Total Time Spent Total Time Spent (In Minutes): 35 Total Time Includes: Examination of the Patient, Discharge Planning, Medication Reconciliation and Communication With Other Providers Discharge Plan Discharge Items Patient Disposition: Home - Self-Care Reason For Visit: WEAKNESS Discharge Diagnosis: UTI (recurrent) Activity: Per Instructions section Non-emergency contact: Primary Care Provider, Specialist and Urologist Call non-emergency contact if: you have any medication questions and your symptoms worsen Follow-up/Referrals: Josseline Sosa DO [Primary Care Provider] - 08/20/20 10:40 am (Date & Time 08/20/2020 10:40 AM Provider Josseline Sosa DO Department Family [facility] PLEASE NOTE THAT THIS IS A TELEHEALTH APPOINTMENT. PLEASE FOLLOW THE INSTRUCTIONS PROVIDED IN YOUR EMAIL. IF YOU HAVE ANY QUESTIONS, PLEASE CALL ) Diet: Carb Consistent or DM2 and Heart Healthy Addtl Attending Provider Instructions: Take antibiotic, Ciprofloxacin, for next 4 days. Please contact urology office (Dr. Solis) for a follow up appointment. Follow up with your family doctor, the appointment will be scheduled for you, and will be via telehealth (internet). Pending Studies at Discharge: No Stand-Alone Forms: My [employer], Smoking Cessation Medications and DC Order Prescriptions: New Advanced Probiotic 625 mg (10 billion cell) Capsule 2 cap PO DAILY Qty: 10 RF: 0 ciprofloxacin HCl 500 mg tablet 500 mg PO Q12H 4 Days Qty: 8 RF: 0 Continued atorvastatin [Lipitor] 40 mg tablet 40 mg PO PM RF: 0 bupropion HCl 150 mg tablet sustained-release 12 hr 150 mg PO BID RF: 0 meloxicam [Mobic] 15 mg tablet 15 mg PO QAM RF: 0 sumatriptan succinate [Imitrex] 50 mg Tablet 50 mg PO DIRECTED PRN (Reason: Migraine Headache) RF: 0 nortriptyline [Pamelor] 25 mg capsule 50 mg PO HS RF: 0 trazodone 100 mg tablet 100 mg PO HS RF: 0 omeprazole 20 mg capsule,delayed release(DR/EC) 20 mg PO QAM RF: 0 verapamil [Calan SR] 240 mg tablet extended release 240 mg PO QAM RF: 0 losartan [Cozaar] 25 mg tablet 25 mg PO QAM RF: 0 oxybutynin chloride 5 mg tablet extended release 24hr 5 mg PO QAM RF: 0 acetaminophen [Tylenol] 325 mg Capsule 650 mg PO QID PRN (Reason: Pain) RF: 0 Excedrin Extra Strength 250-250-65 mg Tablet 1 tab PO DAILY PRN (Reason: Pain) RF: 0 aspirin 81 mg Tablet,Delayed Release (Dr/Ec) 81 mg PO DAILY RF: 0 tramadol 50 mg tablet 50 mg PO Q6H PRN (Reason: pain, moderate) Qty: 20 RF: 0 Discharge Orders: Discharge Order (Routine); Ordered 08/14/20 Ordered By: Kishore Walker/Other Patient Handouts: High Blood Sugar (Hyperglycemia), Hypoglycemia (Low Blood Sugar), Managing Type 2 Diabetes Admission Data Admit Date/Time: 08/11/20 01:58 Attending Provider: Kishore Velasco Admit Provider: Francisco Larson Primary Care Provider: Josseline Sosa Other Providers: Francisco Larson
== END 2020-08-14 16:27 | disposition home or self-care (01) | DRG 690 ==
LOC: ED 19:21 → 3N 08-11 01:58

== ENCOUNTER 2020-09-15 17:57 | Inpatient (IN) ==
--- NOTE | 2020-09-15 19:04 | Emergency Department Note ---
Impression & Plan Acute UTI, Generalized weakness, Dehydration, Hypomagnesemia, Hypophosphatemia ED Provider Note NAME: EDWARDO BOJORQUEZ AGE: 75 SEX: F ARRIVES VIA: Walk-In INFORMANT: Patient, ED PROVIDER(S): Suleiman Vaughan MD CHIEF COMPLAINT: Weakness, fatigue, bodyaches. PLAN: Disposition: Admit MEDICAL DECISION MAKING: The patient is a pleasant 75-year-old woman with a past medical history of type 2 diabetes, hypertension, hyperlipidemia, history of pancreatic neoplasm, thyroid nodule, esophageal stricture, recurrent UTI, lumbar spondylosis, everett charlie, depression, monserrat, normocytic anemia, history of right sacroiliac joint fusion who presents emergency department company by her concern for worsening generalized weakness, body aches and feverishness with suspicion of possible UTI given her history with symptoms that evolved abruptly throughout today in the setting of feeling well yesterday. They deny any cough, congestion, chest pain, shortness of breath, known COVID-19 exposures. She denies diarrhea. She does report a flare of her migraines which began today as well that is typical and severity and character to her normal migraines. Her reports that her weakness was so severe that she was unable to ambulate without significant assistance. Of note, the report she was seen by urology for her chronic symptoms of incontinence and had a evaluation for possible retention but had normal postvoid evaluation. On arrival patient is fatigued appearing but no acute distress, afebrile with stable vital signs. She is clinically dry appearing with generalized weakness throughout without focal neurologic deficits. Neck is supple with full range of motion. WBC 12K increased from prior. H/H 11.7/34.4 increased from prior likely related to a component of hemoconcentration given the patient's clinically dry appearan ce. Platelets within normal limits. Chemistry without metabolic acidosis. BUN/creatinine> 20 in setting of suspected dehydration. Magnesium 1.6 and phosphorus 2.2 with repletion initiated. Electrolytes otherwise unremarkable. LFTs unremarkable. Troponin negative/undetectable. Lipase is not elevated. UA is suspicious for infection with positive nitrites, leukoesterase, WBCs and 4+ bacteria. Patient was given initial dose of ceftriaxone. COVID-19 RNA, ARISTEO was negative. On reevaluation patient was feeling improved after IV fluid hydration, APAP. While she was feeling improved and regained some strength able to ambulate with some assistance she and her both agreed with plan for admission given she is still not returned to baseline. [facility] for [facility]. Triage Nursing notes reviewed and agree them. Prior medical records reviewed Vital Signs: reviewed and remarkable for no significant abnormalities Differential diagnosis: Infection, dehydration, metabolic abnormality, hypo/hyperglycemia, electrolyte disturbance, anemia, hypoxia, cardiac sources, intracerebral event, toxicologic, neurologic, as well as other pathologies. ER treatment provided: See below. Diagnostics interpreted by me: ECG: Normal sinus rhythm with sinus arrhythmia, 84 bpm, left axis deviation, right bundle branch block, no ectopy, no overt ST elevation or depression, QTC 451, QRS 136. Cardiac Monitoring: An order for continuous cardiac monitoring was placed and demonstrated normal sinus rhythm, 84 bpm, no ectopy. Laboratory studies: See below Imaging studies: XR chest 1V portable HISTORY: 75 years-old Female Chest Pain acute atypical chest pain COMPARISON: Chest radiograph 08/10/2020 TECHNIQUE: Portable AP view of the chest FINDINGS: Cardiac silhouette is mildly enlarged. No pneumothorax, pleural effusion, airspace consolidation or overt pulmonary edema. Minimal linear right basilar atelectasis/scarring. Degenerative changes of the shoulders and spine. Cervical spinal fusion hardware. IMPRESSION: No acute process. Consultation(s): Case [facility] the patient for [facility]. HPI: The patient is a pleasant 75-year-old woman with a past medical history of type 2 diabetes, hypertension, hyperlipidemia, history of pancreatic neoplasm, thyroid nodule, esophageal stricture, recurrent UTI, lumbar spondylosis, migraines, depression, monserrat, normocytic anemia, history of right sacroiliac joint fusion who presents emergency department company by her concern for worsening generalized weakness, body aches and feverishness with suspicion of possible UTI given her history with symptoms that evolved abruptly throughout today in the setting of feeling well yesterday. They deny any cough, congestion, chest pain, shortness of breath, known COVID-19 exposures. She denies diarrhea. She does report a flare of her migraines which began today as well that is typical and severity and character to her normal migraines. Her reports that her weakness was so severe that she was unable to ambulate without significant assistance. Of note, the report she was seen by urology for her chronic symptoms of incontinence and had a evaluation for possible retention but had normal postvoid evaluation. ROS: See above HPI for pertinent positives & negatives. A total of 10 systems reviewed and were otherwise negative. PAST MEDICAL HISTORY:See Below PAST SURGICAL HISTORY:See Below FAMILY HISTORY:See Below SOCIAL HISTORY:See Below HOME MEDICATIONS:See Below ALLERGIES:See Below VITALS:See Below PHYSICAL EXAMINATION: GENERAL: Awake, alert, fatigued-appearing, in no distress HENT: Normocephalic, atraumatic. Oropharynx with dry mucous membranes and otherwise unremarkable. EYES: Normal conjunctiva. Sclera non-icteric. EOMI. No nystamgus. PEARRL. NECK: Supple. No nuchal rigidity. FROM. No JVD. RESPIRATORY: Clear to auscultation. CARDIAC: Regular rate, normal rhythm. Extremities warm and well perfused. Pulses equal. ABDOMEN: Soft, non-distended. No tenderness to palpation. No rebound or guarding. No masses. RECTAL: Deferred. MUSCULOSKELETAL: Chest examination reveals no tenderness. The back is symmetrical on inspection without obvious abnormality. There is no CVA tenderness to palpation. No joint edema. LOWER EXTREMITIES: Calves are equal size bilaterally and non-tender. No edema. No discoloration. NEURO: Normal sensorium. No sensory or motor deficits noted. Symmetric generalized weakness throughout with 4/5 strength and SILT x 4 extremities. Cerebellar function intact including [id number], alternating palms, [id number]. SKIN: No rash or jaundice noted. Suleiman Vaughan MD Past Med/Surg History Medical History Anxiety Chronic back pain Increased recently Depression Diabetes mellitus type 2, diet-controlled Glucose well controlled per patient > NO MEDS Dyslipidemia Esophageal stricture NO ISSUES AT PRESENT GERD (gastroesophageal reflux disease) Well controlled and stable HTN (hypertension) Migraine Surgical History H/O bladder repair surgery H/O repair of left rotator cuff H/O: hysterectomy History of back surgery LUMBAR X2 History of cataract surgery BILAT History of colonoscopy History of cystoscopy bilat stents History of esophagogastroduodenoscopy (EGD) History of hip replacement left and right History of nasal surgery History of tooth extraction Hx of fusion of cervical spine ROM IS GOOD PER PT Family History Brother Myocardial infarction, Onset Age: 46 Fatal Diabetes 4 BROTHERS WITH THIS Mother Parkinson's disease Father Multiple sclerosis Social History Smoking Status: Never smoker Second Hand Exposure: No; Hx Alcohol Use: No Hx Substance Use: No Preferred Language: Vietnamese Communication Ability: Effective Jewel Inspector Required: No Beliefs That Will Affect Care: None marital status: Current Living Situation: Spouse Current Living Situation Comment: Home with spouse Feels Safe at Home: Yes Safety Concerns: Feels Safe At This Time Assistive Devices: Glasses and Hearing Aid - Bilateral Allergies Allergies Allergy/AdvReac Type Severity Reaction Status Date / Time duloxetine [From Cymbalta] Allergy Mild Unknown Verified 09/15/20 20:16 fluticasone [From Flonase] AdvReac Severe Nausea Verified 09/15/20 20:16 pregabalin AdvReac Intermediate Edema Verified 09/15/20 20:16 Home Meds Home Medications Medication Instructions Recorded Confirmed atorvastatin [Lipitor] 40 mg PO PM 09/01/18 09/15/20 bupropion HCl 150 mg PO BID 09/01/18 09/15/20 meloxicam [Mobic] 15 mg PO QAM 09/01/18 09/15/20 nortriptyline [Pamelor] 50 mg PO HS 09/01/18 09/15/20 omeprazole 20 mg PO QAM 09/01/18 09/15/20 sumatriptan succinate [Imitrex] 50 mg PO DIRECTED PRN 09/01/18 09/15/20 trazodone 100 mg PO HS 09/01/18 09/15/20 verapamil [Calan SR] 240 mg PO QAM 09/01/18 09/15/20 losartan [Cozaar] 25 mg PO QAM 03/23/19 09/15/20 oxybutynin chloride 5 mg PO QAM 03/19/20 09/15/20 acetaminophen [Tylenol] 650 mg PO QID PRN 06/18/20 09/15/20 Excedrin Extra Strength 1 tab PO DAILY PRN 07/25/20 09/15/20 Previous Rx's Medication Instructions Recorded tramadol 50 mg PO Q6H PRN #20 tab 08/02/20 L.acidop,peggy,lac,rha-B.lac,hema 2 cap PO DAILY #10 cap 08/14/20 [Advanced Probiotic] Results & Data (ED) Vital Signs Vital Signs - 24 hr 09/15/20 18:15 09/15/20 19:55 09/15/20 20:00 Temperature 36.9 C Temperature Source Oral Pulse Rate 81 83 84 Pulse Rate from SpO2 Sensor 82 86 Pulse Rhythm Regular Pulse Strength Normal Respiratory Rate 20 19 16 Respiratory Effort / Characteristics Non-Labored Respiratory Depth Normal Respiratory Pattern Regular Blood Pressure 150/73 H 173/86 H 179/77 H Blood Pressure Mean 98 115 111 Blood Pressure Position Sitting Pulse Oximetry 94 92 92 Oxygen Delivery Method Room Air Room Air Room Air Oxygen Flow Rate Sepsis Recent Fever Within 48 Hours No Sepsis New/Unexplained Change in Mental Status No Sepsis Action Taken by Nursing No Action Required 09/15/20 20:11 09/15/20 20:30 09/15/20 21:00 Temperature Temperature Source Pulse Rate 87 86 Pulse Rate from SpO2 Sensor 86 87 Pulse Rhythm Pulse Strength Respiratory Rate 20 18 Respiratory Effort / Characteristics Respiratory Depth Respiratory Pattern Blood Pressure 187/84 H 165/82 H Blood Pressure Mean 118 109 Blood Pressure Position Pulse Oximetry 94 93 Oxygen Delivery Method Room Air Oxygen Flow Rate Sepsis Recent Fever Within 48 Hours Sepsis New/Unexplained Change in Mental Status Sepsis Action Taken by Nursing 09/15/20 21:30 09/15/20 21:34 09/15/20 21:35 Temperature Temperature Source Pulse Rate 86 86 85 Pulse Rate from SpO2 Sensor 85 85 86 Pulse Rhythm Pulse Strength Respiratory Rate 14 20 15 Respiratory Effort / Characteristics Respiratory Depth Respiratory Pattern Blood Pressure 152/69 H Blood Pressure Mean 96 Blood Pressure Position Pulse Oximetry 88 L 92 90 Oxygen Delivery Method Nasal Cannula Oxygen Flow Rate 2 Sepsis Recent Fever Within 48 Hours Sepsis New/Unexplained Change in Mental Status Sepsis Action Taken by Nursing 09/15/20 22:03 09/15/20 22:30 09/15/20 23:25 Temperature Temperature Source Pulse Rate 84 84 82 Pulse Rate from SpO2 Sensor 86 83 82 Pulse Rhythm Pulse Strength Respiratory Rate 16 23 20 Respiratory Effort / Characteristics Respiratory Depth Respiratory Pattern Blood Pressure 150/61 H 157/75 H 149/82 H Blood Pressure Mean 90 102 104 Blood Pressure Position Pulse Oximetry 95 94 95 Oxygen Delivery Method Room Air Oxygen Flow Rate Sepsis Recent Fever Within 48 Hours Sepsis New/Unexplained Change in Mental Status Sepsis Action Taken by Nursing 09/16/20 00:00 09/16/20 00:11 09/16/20 00:56 Temperature Temperature Source Pulse Rate 84 85 82 Pulse Rate from SpO2 Sensor 84 83 81 Pulse Rhythm Pulse Strength Respiratory Rate 22 24 22 Respiratory Effort / Characteristics Respiratory Depth Respiratory Pattern Blood Pressure 169/86 H 181/87 H 185/86 H Blood Pressure Mean 113 118 119 Blood Pressure Position Pulse Oximetry 95 96 96 Oxygen Delivery Method Room Air Room Air Room Air Oxygen Flow Rate Sepsis Recent Fever Within 48 Hours Sepsis New/Unexplained Change in Mental Status Sepsis Action Taken by Nursing 09/16/20 01:00 Temperature Temperature Source Pulse Rate 81 Pulse Rate from SpO2 Sensor 82 Pulse Rhythm Pulse Strength Respiratory Rate 18 Respiratory Effort / Characteristics Respiratory Depth Respiratory Pattern Blood Pressure 187/99 H Blood Pressure Mean 128 Blood Pressure Position Pulse Oximetry 94 Oxygen Delivery Method Oxygen Flow Rate Sepsis Recent Fever Within 48 Hours Sepsis New/Unexplained Change in Mental Status Sepsis Action Taken by Nursing Laboratory Data Attestation: I reviewed the patient's lab results. Result diagrams: 09/15/20 20:07 09/15/20 21:32 Lab Results 09/15/20 09/15/20 09/15/20 Range/Units 19:40 19:57 19:57 WBC (4.8-10.8) K/uL RBC (4.2-5.4) M/uL Hgb (12.0-16.0) g/dL Hct (37-47) % MCV (80-100) fL MCH (25-34) pg MCHC (32-36) g/dL RDW Std Deviation (36.4-46.3) fL RDW Coeff of Cristel (11.5-14.5) % Plt Count (130-400) K/uL MPV (7.4-10.4) fL Immature Gran % (Auto) % Neut % (Auto) % Lymph % (Auto) % [place] % (Auto) % Eos % (Auto) % Baso % (Auto) % Neut # (Auto) (1.4-6.5) K/uL Lymph # (Auto) (1.2-3.4) K/uL [place] # (Auto) (0.11-0.59) K/uL Eos # (Auto) (0-0.5) K/uL Baso # (Auto) (0-0.2) K/uL Immature Gran # (Auto) (0.00-0.02) K/uL Sodium Potassium Chloride Carbon Dioxide Anion Gap BUN Creatinine Est Cr Clr Drug Dosing Est GFR ( Amer) Est GFR (Non-Af Amer) BUN/Creatinine Ratio Glucose Calcium Phosphorus Magnesium Total Bilirubin Direct Bilirubin AST ALT Alkaline Phosphatase Total Creatine Kinase Troponin I Total Protein Albumin Globulin Albumin/Globulin Ratio Lipase TSH Urine Color Yellow Urine Appearance Cloudy A (Clear) Urine pH 5.5 (4.5-7.5) Ur Specific [place] 1.016 (1.000-1.030) Urine Protein 1+ H (Negative) Urine Glucose (UA) Negative (Negative) Urine Ketones Negative (Negative) Urine Blood 2+ H (Negative) Urine Nitrite Positive A (Negative) Urine Bilirubin Negative (Negative) Urine Urobilinogen Negative (Negative) Ur Leukocyte Esterase 3+ H (Negative) Urine WBC (Auto) >30 H (0-5) /hpf Urine RBC (Auto) 0-4 (0-4) /hpf U Hyaline Cast (Auto) 1-5 (0-5) /lpf U Epithel Cells (Auto) 20-30 H (0-5) /lpf Urine Bacteria (Auto) 4+ H (Negative) Lyme Disease IgG Ab (Negative) Lyme Disease IgM Ab (Negative) COVID-19 Eval Order Covid19 IDNow [facility] SARS-CoV-2, RNA, NAAT NEGATIVE (NEGATIVE) 09/15/20 09/15/20 09/15/20 Range/Units 20:07 20:07 21:32 WBC 12.00 H (4.8-10.8) K/uL RBC 4.04 L (4.2-5.4) M/uL Hgb 11.7 L (12.0-16.0) g/dL Hct 34.4 L (37-47) % MCV 85.1 (80-100) fL MCH 29.0 (25-34) pg MCHC 34.0 (32-36) g/dL RDW Std Deviation 43.9 (36.4-46.3) fL RDW Coeff of Cristel 14.0 (11.5-14.5) % Plt Count 202 (130-400) K/uL MPV 10.8 H (7.4-10.4) fL Immature Gran % (Auto) 0.3 % Neut % (Auto) 81.7 % Lymph % (Auto) 9.9 % [place] % (Auto) 7.6 % Eos % (Auto) 0.3 % Baso % (Auto) 0.2 % Neut # (Auto) 9.82 H (1.4-6.5) K/uL Lymph # (Auto) 1.19 L (1.2-3.4) K/uL [place] # (Auto) 0.91 H (0.11-0.59) K/uL Eos # (Auto) 0.03 (0-0.5) K/uL Baso # (Auto) 0.02 (0-0.2) K/uL Immature Gran # (Auto) 0.03 H (0.00-0.02) K/uL Sodium Cancelled 137 Potassium Cancelled 4.0 Chloride Cancelled 108 H Carbon Dioxide Cancelled 23 Anion Gap Cancelled 6.0 BUN Cancelled 23 H Creatinine Cancelled 0.99 Est Cr Clr Drug Dosing Cancelled 46.7 Est GFR ( Amer) Cancelled 64.6 Est GFR (Non-Af Amer) Cancelled 55.7 BUN/Creatinine Ratio Cancelled 23.3 H Glucose Cancelled 127 H Calcium Cancelled 8.6 Phosphorus Cancelled 2.2 L Magnesium Cancelled 1.6 L Total Bilirubin Cancelled 0.4 Direct Bilirubin Cancelled < 0.1 AST Cancelled 9 L ALT Cancelled 15 Alkaline Phosphatase Cancelled 123 H Total Creatine Kinase Cancelled 32 Troponin I Cancelled < 0.015 Total Protein Cancelled 6.2 L Albumin Cancelled 2.9 L Globulin Cancelled 3.3 Albumin/Globulin Ratio Cancelled 0.9 Lipase Cancelled 31 L TSH Cancelled 1.110 Urine Color Urine Appearance (Clear) Urine pH (4.5-7.5) Ur Specific [place] (1.000-1.030) Urine Protein (Negative) Urine Glucose (UA) (Negative) Urine Ketones (Negative) Urine Blood (Negative) Urine Nitrite (Negative) Urine Bilirubin (Negative) Urine Urobilinogen (Negative) Ur Leukocyte Esterase (Negative) Urine WBC (Auto) (0-5) /hpf Urine RBC (Auto) (0-4) /hpf U Hyaline Cast (Auto) (0-5) /lpf U Epithel Cells (Auto) (0-5) /lpf Urine Bacteria (Auto) (Negative) Lyme Disease IgG Ab (Negative) Lyme Disease IgM Ab (Negative) COVID-19 Eval Order SARS-CoV-2, RNA, NAAT (NEGATIVE) 09/15/20 Range/Units 21:33 WBC (4.8-10.8) K/uL RBC (4.2-5.4) M/uL Hgb (12.0-16.0) g/dL Hct (37-47) % MCV (80-100) fL MCH (25-34) pg MCHC (32-36) g/dL RDW Std Deviation (36.4-46.3) fL RDW Coeff of Cristel (11.5-14.5) % Plt Count (130-400) K/uL MPV (7.4-10.4) fL Immature Gran % (Auto) % Neut % (Auto) % Lymph % (Auto) % [place] % (Auto) % Eos % (Auto) % Baso % (Auto) % Neut # (Auto) (1.4-6.5) K/uL Lymph # (Auto) (1.2-3.4) K/uL [place] # (Auto) (0.11-0.59) K/uL Eos # (Auto) (0-0.5) K/uL Baso # (Auto) (0-0.2) K/uL Immature Gran # (Auto) (0.00-0.02) K/uL Sodium Potassium Chloride Carbon Dioxide Anion Gap BUN Creatinine Est Cr Clr Drug Dosing Est GFR ( Amer) Est GFR (Non-Af Amer) BUN/Creatinine Ratio Glucose Calcium Phosphorus Magnesium Total Bilirubin Direct Bilirubin AST ALT Alkaline Phosphatase Total Creatine Kinase Troponin I Total Protein Albumin Globulin Albumin/Globulin Ratio Lipase TSH Urine Color Urine Appearance (Clear) Urine pH (4.5-7.5) Ur Specific [place] (1.000-1.030) Urine Protein (Negative) Urine Glucose (UA) (Negative) Urine Ketones (Negative) Urine Blood (Negative) Urine Nitrite (Negative) Urine Bilirubin (Negative) Urine Urobilinogen (Negative) Ur Leukocyte Esterase (Negative) Urine WBC (Auto) (0-5) /hpf Urine RBC (Auto) (0-4) /hpf U Hyaline Cast (Auto) (0-5) /lpf U Epithel Cells (Auto) (0-5) /lpf Urine Bacteria (Auto) (Negative) Lyme Disease IgG Ab Negative (Negative) Lyme Disease IgM Ab Negative (Negative) COVID-19 Eval Order SARS-CoV-2, RNA, NAAT (NEGATIVE) Administered Medications Sodium Chloride (Nss 1000ml) 1,000 mls @ 50 mls/hr IV .Q20H ONE Stop: 09/17/20 00:06 Last Admin: 09/16/20 04:17 Dose: 50 mls/hr Documented by: [id number] Insulin Aspart (Insulin Aspart 100 Units/Ml 3 Ml Pen) 0 units SC ACHS DELORIS Stop: 10/16/20 04:06 Last Admin: 09/16/20 04:37 Dose: 1 units Documented by: [id number] Cosigned by: [id number] Discontinued Medications Acetaminophen (Acetaminophen 325 Mg Tab) 650 mg PO NOW STA Stop: 09/16/20 03:17 Last Admin: 09/16/20 03:24 Dose: Not Given Documented by: [id number] Acetaminophen (Acetaminophen 325 Mg Tab) Confirm Administered Dose 650 mg .ROUTE .STK-MED ONE Stop: 09/16/20 03:20 Last Admin: 09/16/20 03:21 Dose: 650 mg Documented by: [id number] Sodium Chloride (Nss 1000ml) 1,000 mls @ 999 mls/hr IV .Q1H1M ONE Stop: 09/15/20 20:20 Last Infusion: 09/15/20 21:00 Dose: 0 mls/hr Documented by: [id number] Admin: 09/15/20 19:48 Dose: 999 mls/hr Documented by: [id number] Acetaminophen (Ofirmev) 1,000 mg in 100 mls @ 400 mls/hr IV NOW STA Stop: 09/15/20 19:34 Last Infusion: 09/15/20 20:40 Dose: 0 mls/hr Documented by: [id number] Admin: 09/15/20 19:48 Dose: 400 mls/hr Documented by: [id number] Magnesium Sulfate/Dextrose (Magnesium Sulfate / D5w) 1 gm in 100 mls @ 100 mls/hr IV NOW STA Stop: 09/15/20 23:57 Last Infusion: 09/16/20 01:03 Dose: 0 mls/hr Documented by: [id number] Admin: 03/14/21 00:05 Dose: 100 mls/hr Documented by: [id number] Ceftriaxone Sodium (Rocephin) 2,000 mg in 70 mls @ 140 mls/hr IV NOW STA Stop: 09/15/20 23:28 Last Infusion: 09/16/20 00:02 Dose: 0 mls/hr Documented by: [id number] Admin: 09/15/20 23:17 Dose: 140 mls/hr Documented by: [id number] Cefepime HCl (Maxipime) 2,000 mg in 20 mls @ 5 mls/min IV NOW STA; Protocol Stop: 09/15/20 23:58 Last Admin: 09/16/20 00:04 Dose: 5 mls/min Documented by: [id number] Losartan Potassium (Losartan Potassium 50 Mg Tab) 50 mg PO NOW STA Stop: 09/16/20 00:19 Last Admin: 09/16/20 00:45 Dose: 50 mg Documented by: [id number] Potassium Phosphate (Pot Phosphate Monobasic W/ Sod Tab) 2 tab PO NOW STA Stop: 09/15/20 22:59 Last Admin: 09/15/20 23:17 Dose: 2 tab Documented by: [id number] Discharge Plan Visit Data Chief Complaint: Illness Stated Complaint: WEAKNESS, FEVER, AMS ED Provider: Suleiman Vaughan Discharge Problem: Acute UTI, Generalized weakness, Dehydration, Hypomagnesemia, Hypophosphatemia Patient Disposition: Admitted As Inpatient Discharge Instructions Interventions: ED Discharge Assessment Last Done: 09/16/20 03:39
[2020-09-15] MEDS ORDERED: ACETAMINOPHEN 1,000 MG/100 ML VIAL IV STA (19:20)
[2020-09-15] MEDS ORDERED: SODIUM CHLORIDE 0.9% 1000ML 1,000 ML IV ONE (19:20)
[2020-09-15 20:11] LABS: Appearance Urine Cloudy (Clear); Bacteria Urine Automated 4+ (Negative); Bilirubin Urine Negative (Negative); Blood Urine 2+ (Negative); Color Urine Yellow; Epithelial Cell Urine Auto 20-30 /lpf (0-5); Glucose Urine UA Negative (Negative); Ketones Urine Negative (Negative); Leukocyte Esterase Urine 3+ (Negative); Nitrite Urine Positive (Negative); Protein Urine 1+ (Negative); RBC Urine Automated 0-4 /hpf (0-4); Specific Gravity Urine 1.016 (1.000-1.030); Urobilinogen Urine Negative (Negative); WBC Urine Automated >30 /hpf (0-5); pH Urine 5.5 (4.5-7.5)
[2020-09-15 20:22] LABS: Basophils # (auto) 0.02 K/uL (0-0.2); Basophils % (auto) 0.2 %; Eosinophils # (auto) 0.03 K/uL (0-0.5); Eosinophils % (auto) 0.3 %; Hematocrit (blood only) 34.4 % (37-47); Hemoglobin 11.7 g/dL (12.0-16.0); Immature Granulocytes # (auto) 0.03 K/uL (0.00-0.02); Immature Granulocytes % (auto) 0.3 %; Lymphocytes # (auto) 1.19 K/uL (1.2-3.4); Lymphocytes % (auto) 9.9 %; Mean Corpuscular Volume 85.1 fL (80-100); Mean Platelet Volume 10.8 fL (7.4-10.4); Monocytes # (auto) 0.91 K/uL (0.11-0.59); Monocytes % (auto) 7.6 %; Neutrophils # (auto) 9.82 K/uL (1.4-6.5); Neutrophils % (auto) 81.7 %; Platelet Count 202 K/uL (130-400); RDW Standard Deviation 43.9 fL (36.4-46.3); Red Blood Count 4.04 M/uL (4.2-5.4)
--- NOTE | 2020-09-15 20:44 | XRay Report ---
XR chest 1V portable HISTORY: 75 years-old Female Chest Pain acute atypical chest pain COMPARISON: Chest radiograph 08/10/2020 TECHNIQUE: Portable AP view of the chest FINDINGS: Cardiac silhouette is mildly enlarged. No pneumothorax, pleural effusion, airspace consolidation or o vert pulmonary edema. Minimal linear right basilar atelectasis/scarring. Degenerative changes of the shoulders and spine. Cervical spinal fusion hardware. IMPRESSION: No acute process. ACT 112: Negative or not required by law. The above report was generated using voice recognition software. It may contain grammatical, syntax o r spelling errors. Electronically signed by: Gregory Oquendo M.D. 09/15/2020 8:42 PM
[2020-09-15 22:04] LABS: Alanine Aminotransferase 15 U/L (12-78); Albumin Level 2.9 gm/dl (3.4-5.0); Aspartate Aminotransferase 9 U/L (15-37); BUN Creatinine Ratio 23.3 (10-20); Bilirubin Direct < 0.1 mg/dl (0-0.2); Blood Urea Nitrogen 23 mg/dl (7-18); Calcium 8.6 mg/dl (8.5-10.1); Carbon Dioxide 23 mmol/L (21-32); Chloride 108 mmol/L (98-107); Creatinine Clr Calc Pharmacy 46.7 ml/min; Est GFR (African American) 64.6; Est GFR (Non-African American) 55.7; Glucose 127 mg/dl (70-99); Lipase 31 U/L (73-393); Magnesium 1.6 mg/dl (1.8-2.4); Sodium 137 mmol/L (136-145)
[2020-09-15 22:13] LABS: Albumin Globulin Ratio 0.9 (0.9-2); Alkaline Phosphatase 123 U/L (45-117); Bilirubin,Total 0.4 mg/dl (0.2-1); Creatine Kinase 32 U/L (26-192); Globulin 3.3 gm/dl (2.5-4.0); Phosphorus 2.2 mg/dl (2.5-4.9); Total Protein 6.2 gm/dl (6.4-8.2); Troponin I < 0.015 ng/ml (0-0.045)
[2020-09-15] MEDS ORDERED: MAGNESIUM SULFATE / D5W 1 GM/100 ML BAG IV STA (22:58)
[2020-09-15] MEDS ORDERED: POT PHOSPHATE MONOBASIC W/ SOD TAB PO STA (22:58)
[2020-09-15] MEDS ORDERED: cefTRIAXone SODIUM 2,000 MG/70 ML BAG IV STA (22:59)
[2020-09-15] MEDS ORDERED: CEFEPIME 2,000 MG/20 ML VIAL IV STA (23:55)
[2020-09-16] MEDS ORDERED: LOSARTAN POTASSIUM 50 MG TAB PO STA (00:18)
--- NOTE | 2020-09-16 00:23 | History & Physical Report ---
Date of Service September 16, 2020 Assessment & Plan (1) Hypertensive crisis, unspecified: Secondary to sepsis, recurrent UTIs Home NSAID contributory hyperlipidemia, on statin Rx DM2 on oral medications, well-controlled as of recent hemoglobin A1c of 6.09 August 2020 chronic back pain status post surgery chronic anemia, hemoglobin better than baseline likely secondary to hemoconcentration mood disorder at baseline Medical telemetry Titrate losartan Hold meloxicam for now given uncontrolled BP Cultures, check lactic acid, Cefepime IVF Basal insulin, ISS BG goal [id number], carb count coverage PT OT eval DVT prophylaxis per Lovenox subcu Full code Text document was generated using [employer] It voice recognition software. It may contain grammatical or spelling errors. Kindly contact undersigned for clarification of any documentation item in question. History of Present Illness Chief Complaint: Weakness, body aches, possible UTI as per records. Primary Care Provider: Josseline Sosa, History obtained from patient, family, and records. Medical history significant for hypertension, hyperlipidemia, DM2 on oral medications, chronic back pain status post surgery, recurrent UTI, chronic anemia (baseline hemoglobin 9-10), mood disorder. Last confinement August 2020 for recurrent UTI. Urine CS grew E. coli. Patient discharged on ciprofloxacin course. 2 days history of generalized weakness, body aches, feverishness at home. Achy frontal headache symptoms somewhat different from migraine as per patient. Poor appetite. Patient brought by to the ER for suspected UTI symptoms. IV Ceftriaxone given at the ER for UTI. Medical History as above Surgical History : Shoulder surgery, lithotripsy, neck and back surgery, cataract surgeries, nasal fracture surgery, TYLER, hip replacement Family History : DM, heart disease Personal/Social history : Non-smoker, no EtOH intake, retired RN Allergies Allergy/AdvReac Type Severity Reaction Status Date / Time duloxetine [From Cymbalta] Allergy Mild Unknown Verified 09/15/20 20:16 fluticasone [From Flonase] AdvReac Severe Nausea Verified 09/15/20 20:16 pregabalin AdvReac Intermediate Edema Verified 09/15/20 20:16 Home Medications Medication Instructions Recorded Confirmed Type atorvastatin [Lipitor] 40 mg PO PM 09/01/18 09/15/20 History bupropion HCl 150 mg PO BID 09/01/18 09/15/20 History meloxicam [Mobic] 15 mg PO QAM 09/01/18 09/15/20 History nortriptyline [Pamelor] 50 mg PO HS 09/01/18 09/15/20 History omeprazole 20 mg PO QAM 09/01/18 09/15/20 History sumatriptan succinate [Imitrex] 50 mg PO DIRECTED PRN 09/01/18 09/15/20 History trazodone 100 mg PO HS 09/01/18 09/15/20 History verapamil [Calan SR] 240 mg PO QAM 09/01/18 09/15/20 History losartan [Cozaar] 25 mg PO QAM 03/23/19 09/15/20 History oxybutynin chloride 5 mg PO QAM 03/19/20 09/15/20 History acetaminophen [Tylenol] 650 mg PO QID PRN 06/18/20 09/15/20 History Excedrin Extra Strength 1 tab PO DAILY PRN 07/25/20 09/15/20 History tramadol 50 mg PO Q6H PRN #20 tab 08/02/20 09/15/20 Rx L.acidop,peggy,lac,rha-B.lac,hema 2 cap PO DAILY #10 cap 08/14/20 09/15/20 Rx [Advanced Probiotic] Past Med/Surg History Medical History Anxiety Chronic back pain Increased recently Depression Diabetes mellitus type 2, diet-controlled Glucose well controlled per patient > NO MEDS Dyslipidemia Esophageal stricture NO ISSUES AT PRESENT GERD (gastroesophageal reflux disease) Well controlled and stable HTN (hypertension) Migraine Surgical History H/O bladder repair surgery H/O repair of left rotator cuff H/O: hysterectomy History of back surgery LUMBAR X2 History of cataract surgery BILAT History of colonoscopy History of cystoscopy bilat stents History of esophagogastroduodenoscopy (EGD) History of hip replacement left and right History of nasal surgery History of tooth extraction Hx of fusion of cervical spine ROM IS GOOD PER PT Family History Brother Myocardial infarction, Onset Age: 46 Fatal Diabetes 4 BROTHERS WITH THIS Mother Parkinson's disease Father Multiple sclerosis Social History Smoking Status: Never smoker Second Hand Exposure: No; Hx Alcohol Use: No Hx Substance Use: No Preferred Language: Wolof Communication Ability: Effective Head Tennis Professional Required: No Beliefs That Will Affect Care: None marital status: Current Living Situation: Spouse Current Living Situation Comment: Home with spouse Feels Safe at Home: Yes Safety Concerns: Feels Safe At This Time Assistive Devices: Glasses and Hearing Aid - Bilateral Review of Systems Review of Systems: As per HPI, all 10 systems reviewed, all other ROS negative Physical Exam Physical Exam: GENERAL: Comfortable, pleasant, no respiratory distress SKIN: Pallor, warm HEENT: Pale palpebral conjunctivae, no ptosis, dry buccal mucosa NECK : Supple, no tenderness CHEST : CTA, no tenderness HEART : RRR, no obvious murmurs ABDOMEN: Some distention, nontender EXTREMITIES : Minimal LE swelling, no LE tenderness, no other conspicuous defo rmities noted NEUROLOGIC : Coherent, no facial asymmetry, no other gross focality Results & Data Results [facility] ([facility]) Vital Signs (Past 12 Hours) Vital Signs Temp Pulse Resp BP Pulse Ox 09/15/20 23:25 82 20 149/82 H 95 09/15/20 22:30 84 23 157/75 H 94 09/15/20 22:03 84 16 150/61 H 95 09/15/20 21:35 85 15 90 09/15/20 21:34 86 20 152/69 H 92 09/15/20 21:30 86 14 88 L 09/15/20 21:00 86 18 165/82 H 93 09/15/20 20:30 87 20 187/84 H 94 09/15/20 20:00 84 16 179/77 H 92 09/15/20 19:55 83 19 173/86 H 92 09/15/20 18:15 36.9 C 81 20 150/73 H 94 Laboratory Results Laboratory Results WBC 12.00 K/uL (4.8-10.8) H 09/15/20 20:07 RBC 4.04 M/uL (4.2-5.4) L 09/15/20 20:07 Hgb 11.7 g/dL (12.0-16.0) L 09/15/20 20:07 Hct 34.4 % (37-47) L 09/15/20 20:07 MCV 85.1 fL (80-100) 09/15/20 20:07 MCH 29.0 pg (25-34) 09/15/20 20:07 MCHC 34.0 g/dL (32-36) 09/15/20 20:07 RDW Std Deviation 43.9 fL (36.4-46.3) 09/15/20 20:07 RDW Coeff of Cristel 14.0 % (11.5-14.5) 09/15/20 20:07 Plt Count 202 K/uL (130-400) 09/15/20 20:07 MPV 10.8 fL (7.4-10.4) H 09/15/20 20:07 Immature Gran % (Auto) 0.3 % 09/15/20 20:07 Neut % (Auto) 81.7 % 09/15/20 20:07 Lymph % (Auto) 9.9 % 09/15/20 20:07 Hughes % (Auto) 7.6 % 09/15/20 20:07 Eos % (Auto) 0.3 % 09/15/20 20:07 Baso % (Auto) 0.2 % 09/15/20 20:07 Neut # (Auto) 9.82 K/uL (1.4-6.5) H 09/15/20 20:07 Lymph # (Auto) 1.19 K/uL (1.2-3.4) L 09/15/20 20:07 Hughes # (Auto) 0.91 K/uL (0.11-0.59) H 09/15/20 20:07 Eos # (Auto) 0.03 K/uL (0-0.5) 09/15/20 20:07 Baso # (Auto) 0.02 K/uL (0-0.2) 09/15/20 20:07 Immature Gran # (Auto) 0.03 K/uL (0.00-0.02) H 09/15/20 20:07 Sodium 137 mmol/L (136-145) 09/15/20 21:32 Potassium 4.0 mmol/L (3.5-5.1) 09/15/20 21:32 Chloride 108 mmol/L (98-107) H 09/15/20 21:32 Carbon Dioxide 23 mmol/L (21-32) 09/15/20 21:32 Anion Gap 6.0 (3-11) 09/15/20 21:32 BUN 23 mg/dl (7-18) H 09/15/20 21:32 Creatinine 0.99 mg/dl (0.6-1.2) 09/15/20 21:32 Est Cr Clr Drug Dosing 46.7 ml/min 09/15/20 21:32 Est GFR ( Amer) 64.6 09/15/20 21:32 Est GFR (Non-Af Amer) 55.7 09/15/20 21:32 BUN/Creatinine Ratio 23.3 (10-20) H 09/15/20 21:32 Glucose 127 mg/dl (70-99) H 09/15/20 21: Calcium 8.6 mg/dl (8.5-10.1) 09/15/20 21: Phosphorus 2.2 mg/dl (2.5-4.9) L 09/15/20 21: Magnesium 1.6 mg/dl (1.8-2.4) L 09/15/20 21:32 Total Bilirubin 0.4 mg/dl (0.2-1) 09/15/20 21: Direct Bilirubin < 0.1 mg/dl (0-0.2) 09/15/20 21: AST 9 U/L (15-37) L 09/15/20 21:32 ALT 15 U/L (12-78) 09/15/20 21:32 Alkaline Phosphatase 123 U/L (45-117) H 09/15/20 21: Total Creatine Kinase 32 U/L (26-192) 09/15/20 21:32 Troponin I < 0.015 ng/ml (0-0.045) 09/15/20 21: Total Protein 6.2 gm/dl (6.4-8.2) L 09/15/20 21: Albumin 2.9 gm/dl (3.4-5.0) L 09/15/20 21:32 Globulin 3.3 gm/dl (2.5-4.0) 09/15/20 21:32 Albumin/Globulin Ratio 0.9 (0.9-2) 09/15/20 21: Lipase 31 U/L (73-393) L 09/15/20 21:32 TSH 1.110 uIu/ml (0.300-4.500) 09/15/20 21:32 Urine Color Yellow 09/15/20 19:40 Urine Appearance Cloudy (Clear) A 09/15/20 19:40 Urine pH 5.5 (4.5-7.5) 09/15/20 19:40 Ur Specific Galax 1.016 (1.000-1.030) 09/15/20 19:40 Urine Protein 1+ (Negative) H 09/15/20 19:40 Urine Glucose (UA) Negative (Negative) 09/15/20 19:40 Urine Ketones Negative (Negative) 09/15/20 19:40 Urine Blood 2+ (Negative) H 09/15/20 19:40 Urine Nitrite Positive (Negative) A 09/15/20 19:40 Urine Bilirubin Negative (Negative) 09/15/20 19:40 Urine Urobilinogen Negative (Negative) 09/15/20 19:40 Ur Leukocyte Esterase 3+ (Negative) H 09/15/20 19:40 Urine WBC (Auto) >30 /hpf (0-5) H 09/15/20 19:40 Urine RBC (Auto) 0-4 /hpf (0-4) 09/15/20 19:40 U Hyaline Cast (Auto) 1-5 /lpf (0-5) 09/15/20 19:40 U Epithel Cells (Auto) 20-30 /lpf (0-5) H 09/15/20 19:40 Urine Bacteria (Auto) 4+ (Negative) H 09/15/20 19:40 COVID-19 Eval Order Cov[facility] 09/15/20 19:57 SARS-CoV-2, RNA, NAAT NEGATIVE (NEGATIVE) 09/15/20 19:[address] head initial read: No acute intracranial hemorrhage, mass-effect or edema. No evidence of acute cortical stroke. Chest x-ray : No acute process. EKG as per my interpretation : Rate 85, NSR, LAD, LAFB, RBBB, upsloping ST depression lateral leads
[2020-09-16 01:08] LABS: Lyme Ab IgG w/WB Rflx Negative (Negative); Lyme Ab IgM w/WB Rflx Negative (Negative)
[2020-09-16] MEDS ORDERED: ACETAMINOPHEN 325 MG TAB PO STA (03:16)
[2020-09-16] MEDS ORDERED: ACETAMINOPHEN 325 MG TAB ONE (03:19)
[2020-09-16] MEDS ORDERED: CARBOHYDRATES FOR HYPOGLYCEMIA PO PRN (04:07)
[2020-09-16] MEDS ORDERED: DEXTROSE 50% 50 ML SYRINGE IV PRN (04:07)
[2020-09-16] MEDS ORDERED: GLUCAGON FOR INJ 1 MG VIAL SQ PRN (04:07)
[2020-09-16] MEDS ORDERED: GLUCOSE 40% GEL 15 GM TUBE PO PRN (04:07)
[2020-09-16] MEDS ORDERED: SODIUM CHLORIDE 0.9% 1000ML 1,000 ML IV ONE (04:07)
[2020-09-16] MEDS ORDERED: CEFEPIME CONSULT ACTIVE PRN (04:07)
[2020-09-16] MEDS ORDERED: traMADol HCL 50 MG TABLET PO PRN (04:07)
[2020-09-16] MEDS ORDERED: NON-FORMULARY MEDICATION (Acetaminophen [Tylenol] 325 mg Capsule) PO PRN (04:07)
[2020-09-16] MEDS ORDERED: HYDROmorphone INJ 0.5 MG/0.5 ML SYR IV PRN (04:07)
[2020-09-16] MEDS ORDERED: PROMETHAZINE HCL 12.5 MG in SODIUM CHLORIDE 0.9% 50 ML IV PRN (04:07)
[2020-09-16] MEDS ORDERED: GLUCOSE 10 TABS/TUBE PO PRN (04:07)
[2020-09-16] MEDS: INSULIN ASPART 100 UNITS/ML 3 ML PEN SC SCH ×5 (04:37→20:31)
[2020-09-16] MEDS ORDERED: INSULIN GLARGINE SOLOSTAR 100 UNITS/ML 3 ML PEN SC STA ×2 (05:06→20:29)
[2020-09-16] MEDS: tiZANidine HCL 4 MG TABLET PO PRN ×2 (05:25→12:31)
[2020-09-16 06:05] LABS: Basophils # (auto) 0.01 K/uL (0-0.2); Basophils % (auto) 0.1 %; Eosinophils # (auto) 0.02 K/uL (0-0.5); Eosinophils % (auto) 0.2 %; Hemoglobin 10.8 g/dL (12.0-16.0); Immature Granulocytes # (auto) 0.03 K/uL (0.00-0.02); Immature Granulocytes % (auto) 0.3 %; Lymphocytes # (auto) 0.86 K/uL (1.2-3.4); Lymphocytes % (auto) 8.3 %; Mean Corpuscular Hemoglobin 28.1 pg (25-34); Mean Corpuscular Hgb Conc 32.7 g/dL (32-36); Mean Corpuscular Volume 85.9 fL (80-100); Mean Platelet Volume 9.5 fL (7.4-10.4); Monocytes # (auto) 0.95 K/uL (0.11-0.59); Monocytes % (auto) 9.1 %; Neutrophils # (auto) 8.55 K/uL (1.4-6.5); Platelet Count 123 K/uL (130-400); RDW Coefficient of Variation 13.9 % (11.5-14.5); RDW Standard Deviation 43.4 fL (36.4-46.3); Red Blood Count 3.84 M/uL (4.2-5.4); White Blood Count 10.42 K/uL (4.8-10.8)
[2020-09-16] MEDS: LIDOCAINE 5% 1 PATCH TD SCH (06:11)
[2020-09-16 06:46] LABS: BUN Creatinine Ratio 20.3 (10-20); Calcium 8.2 mg/dl (8.5-10.1); Creatinine Clr Calc Pharmacy 58.6 ml/min; Est GFR (African American) 75.5; Est GFR (Non-African American) 65.2; Magnesium 1.9 mg/dl (1.8-2.4); Phosphorus 2.7 mg/dl (2.5-4.9); Potassium 3.5 mmol/L (3.5-5.1)
[2020-09-16] MEDS: VERAPAMIL HCL 240 MG TABCR PO SCH (08:24)
[2020-09-16] MEDS: ADVANCED PROBIOTIC 1250 MG CAPSULE PO SCH (08:25)
[2020-09-16] MEDS: buPROPion SR 150 MG TABCR PO SCH ×2 (08:25→20:27)
[2020-09-16] MEDS: PANTOprazole 40 MG TAB PO SCH ×2 (08:25→09:54)
[2020-09-16] MEDS: ENOXAPARIN INJ 40 MG/0.4 ML SYR SQ SCH (09:55)
--- NOTE | 2020-09-16 10:23 | CT Scan Report ---
CT SCAN OF THE BRAIN WITHOUT IV CONTRAST CLINICAL HISTORY: Headache. COMPARISON STUDY: CT of the brain dated 04/14/2020. TECHNIQUE: Unenhanced axial CT scan of the brain is performed from the vertex to the skull base. A do se lowering technique was utilized adhering to the principles of ALARA. CT DOSE: 614.27 mGy.cm FINDINGS: Brain parenchyma: There are age-related involutional changes noting mild subcortical and periventric ular microangiopathic change. There is no hemorrhage, mass effect, or evidence of acute territorial i schemia by CT criteria. Arevalo-white matter differentiation is preserved. No extra-axial fluid collecti on is seen. Ventricles, sulci, cisterns: Prominent secondary to involutional change. Intracranial vasculature: There is mild atherosclerotic calcification of the cavernous carotid arteri es. Calvarium: Unremarkable. Soft tissues: There is minimal right frontal scalp contusion. Sinuses and mastoids: The visualized paranasal sinuses are clear. The mastoid air cells are well pneu matized. Orbits: The bony orbits are grossly intact. There are bilateral ocular lens implants. IMPRESSION: There is no hemorrhage, mass effect, or evidence of acute territorial ischemia by CT crit eduarda. ACT 112: Negative or not required by law. Electronically signed by: Barry Bailon M.D. 09/16/2020 10:21 AM
[2020-09-16] MEDS: ACETAMINOPHEN 325 MG TAB PO PRN ×3 (11:37→20:26)
--- NOTE | 2020-09-16 12:37 | Electrocardiogram Report ---
Test Reason : Blood Pressure : / mmHG Vent. Rate : 084 BPM Atrial Rate : 084 BPM P-R Int : 148 ms QRS Dur : 136 ms QT Int : 382 ms P-R-T Axes : 014 -36 024 degrees QTc Int : 451 ms Normal sinus rhythm with sinus arrhythmia Left axis deviation Right bundle branch block Abnormal ECG When compared with ECG of 10-AUG-2020 19:48, No significant change was found Confirmed by Brian Connor ([id number]) on 09/16/2020 12:37:20 PM Referred By: REFERRED SELF Confirmed By:Brian Connor
--- NOTE | 2020-09-16 14:14 | Hospitalist Progress Note ---
Date of Service September 16, 2020 Assessment & Plan (1) Acute UTI: Present on admission with fever, weakness UA positive nitrite, leukocytes and bacteria Urine cx grew E coli Blood cx pending Received IV Rocephin in the ER, then transition to Cefepime Continue IV Cefepime Will follow urine sensitivity (2) Hypertensive crisis, unspecified: Possible related to acute illness (headache and body ache) BP increased to 208/88 Losartan increased to 50mg daily Continue monitor BP Headache Possible related to elevate BP CT head no hemorrhage, mass effect, or evidence of acute territorial ischemia Clinically Improves DM type 2 Well control Hemoglobin A1c of 6.4 (August 2020) Not on any diabetic med Continue monitor Chronic back pain status post surgery Continue to hold NSAIDs Continue IV pain control Weakness Mostly due to UTI CT head showed no acute finding PT/Ot eval Fall precaution DVT px on Lovenox CODE STATUS FULL CODE Admission and Anticipated Discharge Date Admission Date: September 16, 2020 Subjective Pt was seen and examined for follow up of fever, weakness Pt said that she feels a little better today She said that her strength improves Denies any chest pain, palpitation, dizziness and SOB Review of Systems Review of Systems: All systems reviewed & are unremarkable except as noted in Subjective Physical Exam Physical Exam: General- No acute distress Head- atraumatic Eyes- PERRL, EOMI, ENT- oropharynx clear Neck- supple, no JVD Lungs- clear to auscultation Heart- regular rhythm; no murmur Abdomen- normal bowel sounds, soft, nontender Extremities- no calf tenderness Neuro- alert, oriented x 3; PERRL, EOMI; no facial palsy; no dysarthria Skin- warm & dry Results & Data Results & Data ([facility]) Vital Signs (Past 12 Hours) Vital Signs Temp Pulse Pulse Resp BP BP Pulse Ox 09/16/20 12:28 39.3 C H 09/16/20 11:27 38.1 C H 78 20 155/74 H 91 09/16/20 07:18 85 09/16/20 07:00 36.6 C 71 18 129/73 92 09/16/20 06:25 36.8 C 09/16/20 05:03 38.2 C H 09/16/20 04:08 38.3 C H 18 148/65 H 93 09/16/20 04:07 98 H 09/16/20 03:39 90 18 173/114 H 94 09/16/20 03:14 38.2 C H 09/16/20 03:03 91 H 14 175/80 H 94 09/16/20 01:30 85 18 208/88 H 95
[2020-09-16] MEDS: NORTRIPTYLINE HCL 25 MG CAP PO SCH (20:26)
[2020-09-16] MEDS: ATORVASTATIN 40 MG TAB PO SCH (20:27)
[2020-09-16] MEDS: traZODone HCL 100 MG TAB PO SCH (20:27)
[2020-09-17] MEDS ORDERED: CEFEPIME 2,000 MG in SYRINGE 0 ML IV SCH
[2020-09-17] MEDS: ACETAMINOPHEN 325 MG TAB PO PRN ×2 (03:17→12:11)
[2020-09-17] MEDS: ADVANCED PROBIOTIC 1250 MG CAPSULE PO SCH (08:01)
[2020-09-17] MEDS: LOSARTAN POTASSIUM 50 MG TAB PO SCH (08:02)
[2020-09-17] MEDS: VERAPAMIL HCL 240 MG TABCR PO SCH (08:02)
[2020-09-17] MEDS: buPROPion SR 150 MG TABCR PO SCH ×2 (08:03→21:06)
[2020-09-17] MEDS: PANTOprazole 40 MG TAB PO SCH (08:03)
[2020-09-17] MEDS: LIDOCAINE 5% 1 PATCH TD SCH (08:05)
[2020-09-17] MEDS: ENOXAPARIN INJ 40 MG/0.4 ML SYR SQ SCH (08:05)
[2020-09-17] MEDS: INSULIN GLARGINE SOLOSTAR 100 UNITS/ML 3 ML PEN SC SCH (08:11)
[2020-09-17] MEDS: INSULIN ASPART 100 UNITS/ML 3 ML PEN SC SCH ×4 (08:13→20:55)
[2020-09-17] MEDS ORDERED: INSULIN GLARGINE SOLOSTAR 100 UNITS/ML 3 ML PEN SC SCH (09:00)
[2020-09-17 09:16] LABS: BUN Creatinine Ratio 15.4 (10-20); Calcium 8.5 mg/dl (8.5-10.1); Creatinine Clr Calc Pharmacy 57.4 ml/min; Est GFR (African American) 73.5; Est GFR (Non-African American) 63.4; Potassium 3.4 mmol/L (3.5-5.1)
[2020-09-17] MEDS ORDERED: POTASSIUM CHLORIDE CRTAB 20 MEQ TABCR PO STA (10:16)
--- NOTE | 2020-09-17 19:19 | Hospitalist Progress Note ---
Date of Service September 17, 2020 Assessment & Plan (1) Acute UTI: Possible sepsis secondary to UTI, ruled out Present on admission with fever, weakness UA positive nitrite, leukocytes and bacteria Urine cx grew E coli Blood cx no growth Received IV Rocephin in the ER, then transition to Cefepime IV Cefepime was changed to Rocephin Will transition to PO abx on discharge case discussed with urology as per family request, urology recommended outpatient follow up once discharge (2) Hypertensive crisis, unspecified: Possible related to acute illness (headache and body ache) BP on admission 208/88 Continue Losartan 50mg daily Continue monitor BP Headache Possible related to elevate BP CT head no hemorrhage, mass effect, or evidence of acute territorial ischemia Clinically Improves DM type 2 Well control Hemoglobin A1c of 6.4 (August 2020) Not on any diabetic med Continue monitor Chronic back pain status post surgery Continue to hold NSAIDs Continue IV pain control Weakness Mostly due to UTI CT head showed no acute finding PT/Ot eval Fall precaution DVT px on Lovenox CODE STATUS FULL CODE Admission and Anticipated Discharge Date Admission Date: September 16, 2020 Subjective Pt was seen and examined for follow up of fever, weakness Pt said that she feels a little better today Denies any chest pain, palpitation, dizziness and SOB Review of Systems Review of Systems: All systems reviewed & are unremarkable except as noted in Subjective Physical Exam Physical Exam: General- No acute distress Head- atraumatic Eyes- PERRL, EOMI, ENT- oropharynx clear Neck- supple, no JVD Lungs- clear to auscultation Heart- regular rhythm; no murmur Abdomen- normal bowel sounds, soft, nontender Extremities- no calf tenderness Neuro- alert, oriented x 3; PERRL, EOMI; no facial palsy; no dysarthria Skin- warm & dry Results & Data Results & Data ([facility]) Vital Signs (Past 12 Hours) Vital Signs Temp Pulse Pulse Resp BP BP Pulse Ox 09/17/20 19:07 36.6 C 68 20 159/76 H 96 09/17/20 16:00 67 09/17/20 15:07 36.9 C 79 18 107/60 92 09/17/20 12:46 09/17/20 11:30 36.5 C 75 20 118/57 L 95 09/17/20 07:20 78 Pulse Ox 09/17/20 19:07 09/17/20 16:00 09/17/20 15:07 09/17/20 12:46 95 09/17/20 11:30 09/17/20 07:20
[2020-09-17] MEDS: traZODone HCL 100 MG TAB PO SCH (21:06)
[2020-09-17] MEDS: ATORVASTATIN 40 MG TAB PO SCH (21:06)
[2020-09-17] MEDS: NORTRIPTYLINE HCL 25 MG CAP PO SCH (21:06)
[2020-09-17] MEDS ORDERED: cefTRIAXone SODIUM 2,000 MG in DEXTROSE 5% 50 ML IV SCH (22:00)
[2020-09-18] MEDS: ENOXAPARIN INJ 40 MG/0.4 ML SYR SQ SCH (08:45)
[2020-09-18] MEDS: buPROPion SR 150 MG TABCR PO SCH (08:45)
[2020-09-18] MEDS: LIDOCAINE 5% 1 PATCH TD SCH (08:46)
[2020-09-18] MEDS: VERAPAMIL HCL 240 MG TABCR PO SCH (08:47)
[2020-09-18] MEDS: PANTOprazole 40 MG TAB PO SCH (08:47)
[2020-09-18] MEDS: LOSARTAN POTASSIUM 50 MG TAB PO SCH (08:47)
[2020-09-18] MEDS: ADVANCED PROBIOTIC 1250 MG CAPSULE PO SCH (08:47)
[2020-09-18] MEDS: INSULIN GLARGINE SOLOSTAR 100 UNITS/ML 3 ML PEN SC SCH (08:48)
[2020-09-18] MEDS: INSULIN ASPART 100 UNITS/ML 3 ML PEN SC SCH ×2 (08:48→12:21)
[2020-09-18 10:23] LABS: BUN Creatinine Ratio 14.8 (10-20); Calcium 9.7 mg/dl (8.5-10.1); Creatinine Clr Calc Pharmacy 41.8 ml/min; Est GFR (African American) 51.2; Est GFR (Non-African American) 44.2; Potassium 3.5 mmol/L (3.5-5.1)
--- NOTE | 2020-09-18 15:26 | Hospitalist Progress Note ---
Date of Service September 18, 2020 Assessment & Plan (1) Acute UTI: Possible sepsis secondary to UTI, ruled out Present on admission with fever, weakness UA positive nitrite, leukocytes and bacteria Urine cx grew E coli Blood cx no growth Received IV Rocephin in the ER, then transition to Cefepime IV Cefepime was changed to Rocephin Will transition to PO Keflex to complete the course of the antibiotic case discussed with urology as per family request, urology recommended outpatient follow up once discharge (Schedule for 10/02) (2) Hypertensive crisis, unspecified: Possible related to acute illness (headache and body ache) BP on admission 208/88 Continue Losartan 50mg daily Continue monitor BP Headache Possible related to elevate BP CT head no hemorrhage, mass effect, or evidence of acute territorial ischemia Clinically Improves DM type 2 Well control Hemoglobin A1c of 6.4 (August 2020) Not on any diabetic med Continue monitor Chronic back pain status post surgery Continue to hold NSAIDs Continue IV pain control Weakness Mostly due to UTI CT head showed no acute finding PT/Ot eval Fall precaution DVT px on Lovenox CODE STATUS FULL CODE Disposition Will discharge home today Admission and Anticipated Discharge Date Admission Date: September 16, 2020 Subjective Pt was seen and examined for follow up of fever, weakness Pt said that she feels much better better today She said that her energy in better Denies any chest pain, palpitation, dizziness and SOB Physical Exam Physical Exam: General- No acute distress Head- atraumatic Eyes- PERRL, EOMI, ENT- oropharynx clear Neck- supple, no JVD Lungs- clear to auscultation Heart- regular rhythm; no murmur Abdomen- normal bowel sounds, soft, nontender Extremities- no calf tenderness Neuro- alert, oriented x 3; PERRL, EOMI; no facial palsy; no dysarthria Skin- warm & dry Results & Data Results & Data ([facility]) Vital Signs (Past 12 Hours) Vital Signs Temp Pulse Pulse Resp BP BP Pulse Ox 09/18/20 11:06 36.4 C L 80 20 127/77 94 09/18/20 07:43 77 09/18/20 07:41 36.9 C 80 18 120/66 94 09/18/20 03:43 37.0 C 78 16 151/81 H 96
--- NOTE | 2020-10-02 23:29 | Discharge Summary ---
Date of Service September 18, 2020 Admission HPI Per Admitting Provider History obtained from patient, family, and records. Medical history significant for hypertension, hyperlipidemia, DM2 on oral medications, chronic back pain status post surgery, recurrent UTI, chronic anemia (baseline hemoglobin 9-10), mood disorder. Last confinement August 2020 for recurrent UTI. Urine CS grew E. coli. Patient discharged on ciprofloxacin course. 2 days history of generalized weakness, body aches, feverishness at home. Achy frontal headache symptoms somewhat different from migraine as per patient. Poor appetite. Patient brought by to the ER for suspected UTI symptoms. IV Ceftriaxone given at the ER for UTI. 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 Exam Per Admitting Provider GENERAL: Comfortable, pleasant, no respiratory distress SKIN: Pallor, warm HEENT: Pale palpebral conjunctivae, no ptosis, dry buccal mucosa NECK : Supple, no tenderness CHEST : CTA, no tenderness HEART : RRR, no obvious murmurs ABDOMEN: Some distention, nontender EXTREMITIES : Minimal LE swelling, no LE tenderness, no other conspicuous deformities noted NEUROLOGIC : Coherent, no facial asymmetry, no other gross focality Principal Diagnosis Urinary track infection Hypertensive crisis, unspecified: Headache Diabetes Chronic back pain Weakness Discharge Exam General- No acute distress Head- atraumatic Eyes- PERRL, EOMI, ENT- oropharynx clear Neck- supple, no JVD Lungs- clear to auscultation Heart- regular rhythm; no murmur Abdomen- normal bowel sounds, soft, nontender Extremities- no calf tenderness Neuro- alert, oriented x 3; PERRL, EOMI; no facial palsy; no dysarthria Skin- warm & dry Discharge Data Allergies Allergy/AdvReac Type Severity Reaction Status Date / Time duloxetine [From Cymbalta] Allergy Mild Unknown Verified 09/15/20 20:16 fluticasone [From Flonase] AdvReac Severe Nausea Verified 09/15/20 20:16 pregabalin AdvReac Intermediate Edema Verified 09/15/20 20:16 Consultations 09/15/20 23:21 ED Decision to Admit Stat Ordered Studies 09/16/20 00:17 CT head/brain wo con Urgent CT SCAN OF THE BRAIN WITHOUT IV CONTRAST CLINICAL HISTORY: Headache. COMPARISON STUDY: CT of the brain dated 04/14/2020. TECHNIQUE: Unenhanced axial CT scan of the brain is performed from the vertex to the skull base. A dose lowering technique was utilized adhering to the principles of ALARA. CT DOSE: 614.27 mGy.cm FINDINGS: Brain parenchyma: There are age-related involutional changes noting mild subcortical and periventricular microangiopathic change. There is no hemorrhage, mass effect, or evidence of acute territorial ischemia by CT criteria. Arevalo- white matter differentiation is preserved. No extra-axial fluid collection is seen. Ventricles, sulci, cisterns: Prominent secondary to involutional change. Intracranial vasculature: There is mild atherosclerotic calcification of the cavernous carotid arteries. Calvarium: Unremarkable. Soft tissues: There is minimal right frontal scalp contusion. Sinuses and mastoids: The visualized paranasal sinuses are clear. The mastoid air cells are well pneumatized. Orbits: The bony orbits are grossly intact. There are bilateral ocular lens implants. IMPRESSION: There is no hemorrhage, mass effect, or evidence of acute territorial ischemia by CT criteria. ACT 112: Negative or not required by law. Electronically signed by: Barry Bailon M.D. 09/16/2020 10:21 AM Dictated: 09/16/20 1019Transcribed: 09/16/20 1019 XR chest 1V portable HISTORY: 75 years-old Female Chest Pain acute atypical chest pain COMPARISON: Chest radiograph 08/10/2020 TECHNIQUE: Portable AP view of the chest FINDINGS: Cardiac silhouette is mildly enlarged. No pneumothorax, pleural effusion, airspace consolidation or overt pulmonary edema. Minimal linear right basilar atelectasis/scarring. Degenerative changes of the shoulders and spine. Cervical spinal fusion hardware. IMPRESSION: No acute process. ACT 112: Negative or not required by law. The above report was generated using voice recognition software. It may contain grammatical, syntax or spelling errors. Electronically signed by: Gregory Oquendo M.D. 09/15/2020 8:42 PM Dictated: 09/15/202040Transcribed: 09/15/202040 Hospital Course (1) Acute UTI: Possible sepsis secondary to UTI, ruled out Present on admission with fever, weakness UA positive nitrite, leukocytes and bacteria Urine cx grew E coli Blood cx no growth Received IV Rocephin in the ER, then transition to Cefepime IV Cefepime was changed to Rocephin Will transition to PO Keflex to complete the course of the antibiotic case discussed with urology as per family request, urology recommended outpatient follow up once discharge (Schedule for 10/02) (2) Hypertensive crisis, unspecified: Possible related to acute illness (headache and body ache) BP on admission 208/88 Continue Losartan 50mg daily Continue monitor BP Headache Possible related to elevate BP CT head no hemorrhage, mass effect, or evidence of acute territorial ischemia Clinically Improves DM type 2 Well control Hemoglobin A1c of 6.4 (August 2020) Not on any diabetic med Continue monitor Chronic back pain status post surgery Continue to hold NSAIDs Continue IV pain control Weakness Mostly due to UTI CT head showed no acute finding PT/Ot eval Fall precaution DVT px on Lovenox CODE STATUS FULL CODE Disposition Will discharge home today Total Time Total Time Spent Total Time Spent (In Minutes): 35 minutes Total Time Includes: Examination of the Patient, Discharge Planning, Medication Reconciliation, Communication With Other Providers and Other Discharge Plan Discharge Items Patient Disposition: Home - Self-Care Reason For Visit: UNCONTROLLED HTN, COMPLICATED UTI Discharge Diagnosis: Urinary track infection Hypertensive crisis, unspecified: Headache Diabetes Chronic back pain Weakness Activity: Resume your previous activity Non-emergency contact: Primary Care Provider Call non-emergency contact if: you have any medication questions Follow-up/Referrals: Hernandez Valdez DO [Physician] - (You have an appointment scheduled with Dr. Valdez on October 03. The office will call you with the appointment time. [facility] [address] [place] [address] ) Josseline Sosa DO [Primary Care Provider] - (Date & Time 09/24/2020 12:00 PM Provider Leah Win DO Department Family [facility] [place] ) Diet: Carb Consistent or DM2 Addtl Attending Provider Instructions: Follow up with your Primary care provider Dr. Win on 09/24/20 @ 12:00PM Follow up with urology Dr. Solis on 10/03 Complete the course of the antibiotic with Keflex Fall precaution Pending Studies at Discharge: No Stand-Alone Forms: My [facility], Smoking Cessation Medications and DC Order Prescriptions: Continued atorvastatin [Lipitor] 40 mg tablet 40 mg PO PM RF: 0 bupropion HCl 150 mg tablet sustained-release 12 hr 150 mg PO BID RF: 0 meloxicam [Mobic] 15 mg tablet 15 mg PO QAM RF: 0 sumatriptan succinate [Imitrex] 50 mg Tablet 50 mg PO DIRECTED PRN (Reason: Migraine Headache) RF: 0 nortriptyline [Pamelor] 25 mg capsule 50 mg PO HS RF: 0 trazodone 100 mg tablet 100 mg PO HS RF: 0 omeprazole 20 mg capsule,delayed release(DR/EC) 20 mg PO QAM RF: 0 verapamil [Calan SR] 240 mg tablet extended release 240 mg PO QAM RF: 0 losartan [Cozaar] 25 mg tablet 25 mg PO QAM RF: 0 acetaminophen [Tylenol] 325 mg Capsule 650 mg PO QID PRN (Reason: Pain) RF: 0 Advanced Probiotic 625 mg (10 billion cell) Capsule 2 cap PO DAILY Qty: 10 RF: 0 Excedrin Extra Strength 250-250-65 mg Tablet 1 tab PO DAILY PRN (Reason: Pain) RF: 0 tramadol 50 mg tablet 50 mg PO Q6H PRN (Reason: pain, moderate) Qty: 20 RF: 0 No Action oxybutynin chloride 10 mg tablet extended release 24hr 10 mg PO DAILY Qty: 30 RF: 1 Discharge Orders: Discharge Order (Routine); Ordered 09/18/20 Ordered By: Luis Alberto Huddleston Admission Data Admit Date/Time: 09/16/20 01:03 Attending Provider: Luis Alberto Huddleston Admit Provider: Sebastian Dumont Primary Care Provider: Josseline Sosa Other Interventions: Discharge Summary Assessment (RN) Last Done: 09/18/20 15:55
== END 2020-09-18 16:57 | disposition home or self-care (01) | DRG 690 ==
LOC: ED 17:57 → 2W 09-16 01:03

== ENCOUNTER 2021-01-14 20:56 | Inpatient (IN) ==
[2021-01-14] MEDS ORDERED: SODIUM CHLORIDE 0.9% 1000ML 1,000 ML IV STA (23:30)
[2021-01-14] MEDS ORDERED: SODIUM CHLORIDE 0.9% 500 ML IV STA (23:30)
[2021-01-14 23:42] LABS: Basophils # (auto) 0.02 K/uL (0-0.2); Basophils % (auto) 0.1 %; Eosinophils # (auto) 0.07 K/uL (0-0.5); Eosinophils % (auto) 0.5 %; Hematocrit (blood only) 35.7 % (37-47); Hemoglobin 11.5 g/dL (12.0-16.0); Immature Granulocytes # (auto) 0.03 K/uL (0.00-0.02); Immature Granulocytes % (auto) 0.2 %; Lymphocytes # (auto) 0.79 K/uL (1.2-3.4); Lymphocytes % (auto) 5.8 %; Mean Corpuscular Hemoglobin 27.8 pg (25-34); Mean Corpuscular Hgb Conc 32.2 g/dL (32-36); Mean Corpuscular Volume 86.2 fL (80-100); Mean Platelet Volume 9.5 fL (7.4-10.4); Monocytes # (auto) 0.61 K/uL (0.11-0.59); Monocytes % (auto) 4.5 %; Neutrophils % (auto) 88.9 %; Platelet Count 192 K/uL (130-400); RDW Coefficient of Variation 13.6 % (11.5-14.5); Red Blood Count 4.14 M/uL (4.2-5.4); White Blood Count 13.52 K/uL (4.8-10.8)
[2021-01-14] MEDS ORDERED: ACETAMINOPHEN 1,000 MG/100 ML VIAL IV STA (23:47)
[2021-01-14] MEDS ORDERED: CIPROFLOXACIN / D5W 400 MG/200 ML BAG IV STA (23:54)
[2021-01-15] LABS: Alanine Aminotransferase 13 U/L (12-78); Albumin Level 3.2 gm/dl (3.4-5.0); Aspartate Aminotransferase 6 U/L (15-37); BUN Creatinine Ratio 19.4 (10-20); Blood Urea Nitrogen 21 mg/dl (7-18); Calcium 8.8 mg/dl (8.5-10.1); Carbon Dioxide 25 mmol/L (21-32); Chloride 106 mmol/L (98-107); Est GFR (African American) 58.8 ml/min; Est GFR (Non-African American) 50.7 ml/min; Glucose 156 mg/dl (70-99); Potassium 4.2 mmol/L (3.5-5.1); Sodium 137 mmol/L (136-145)
[2021-01-15 00:02] LABS: Albumin Globulin Ratio 0.9 (0.9-2); Alkaline Phosphatase 117 U/L (45-117); Bilirubin,Total 0.4 mg/dl (0.2-1); Globulin 3.5 gm/dl (2.5-4.0); Total Protein 6.7 gm/dl (6.4-8.2)
[2021-01-15 01:21] LABS: Appearance Urine Cloudy (Clear); Bacteria Urine Automated Negative (Negative); Bilirubin Urine Negative (Negative); Blood Urine 3+ (Negative); Color Urine Dark Yellow; Glucose Urine UA Negative (Negative); Ketones Urine Negative (Negative); Leukocyte Esterase Urine 2+ (Negative); Nitrite Urine Positive (Negative); Protein Urine 1+ (Negative); Specific Gravity Urine 1.011 (1.000-1.030); Urobilinogen Urine Negative (Negative); WBC Urine Automated >30 /hpf (0-5)
[2021-01-15 01:32] LABS: RBC Urine Automated >30 /hpf (0-4)
--- NOTE | 2021-01-15 03:41 | Emergency Department Note ---
History of Present Illness General Chief complaint: Fever Stated complaint: HAD PROCEDURE TODAY, NOW RUNNING A FEVER Time Seen by Provider: 01/14/21 23:15 Source: patient, family () and RN notes reviewed Mode of arrival: ambulatory Limitations: no limitations History of Present Illness Provider complaint: Cystoscopy today, fever and blood in the urine Maximum Pain Intensity: 5 This patient is a 75-year-old female who presents to the emergency department with complaints of a fever and blood in the Hahn catheter bag. Patient states she had a cystoscopy today with Dr. Valdez of urology due to bladder dysfunction. She was having dynamic testing and therefore has had several cy stoscopies over the last few months. Patient does believe she received IV antibiotics during the procedure. She states she took Keflex this evening as prescribed. She developed some chills and sweats and was noted to be febrile to 101 degrees. Patient did have some lower abdominal pressure but realized her Hahn catheter was kinked. Once this was unkinked the pressure has since resolved. Patient denies any vomiting, chest pain, shortness of breath and diarrhea. Of note, the patient had recent surgery on the left wrist after a fracture (unrelated to the cystoscopy) and is scheduled to see [place] [facility] tomorrow for suture removal. Home Medications Medication Instructions Recorded Confirmed Type atorvastatin 40 mg tablet (Lipitor) 40 mg PO QPM 09/01/18 01/14/21 History bupropion HCl 150 mg tablet,12 hr 150 mg PO BID 09/01/18 01/14/21 History sustained-release meloxicam 15 mg tablet (Mobic) 15 mg PO QAM 09/01/18 01/14/21 History nortriptyline 25 mg capsule 50 mg PO HS 09/01/18 01/14/21 History (Pamelor) omeprazole 20 mg capsule,delayed 20 mg PO QAM 09/01/18 01/14/21 History release sumatriptan succinate 50 mg tablet 50 mg PO DIRECTED PRN 09/01/18 01/14/21 History (Imitrex) trazodone 100 mg tablet 100 mg PO HS 09/01/18 01/14/21 History verapamil 240 mg tablet,extended 240 mg PO QAM 09/01/18 01/14/21 History release (Calan SR) losartan 25 mg tablet (Cozaar) 25 mg PO QAM 03/23/19 01/14/21 History acetaminophen 325 mg capsule 650 mg PO DIRECTED PRN 06/18/20 01/14/21 History (Tylenol) pomijdz-ogirmepemdrot-zrfcjsfn 250 1 tab PO UD PRN 07/25/20 01/14/21 History mg-250 mg-65 mg tablet (Excedrin Extra Strength) oxybutynin chloride 10 mg 10 mg PO QAM 01/01/21 01/14/21 History tablet,extended release 24 hr phenazopyridine 200 mg tablet 200 mg PO Q8H PRN #10 tab 01/14/21 01/14/21 Rx (Pyridium) cefdinir 300 mg capsule 300 mg PO BID #14 cap 01/17/21 Rx Allergies Allergy/AdvReac Type Severity Reaction Status Date / Time duloxetine [From Cymbalta] Allergy Unknown Unknown Verified 01/14/21 23:13 fluticasone [From Flonase] AdvReac Unknown Nausea Verified 01/14/21 23:13 pregabalin AdvReac Unknown Edema Verified 01/14/21 23:13 Past Med/Surg History Medical History Arm fracture, left LEFT FOREARM - SURGERY PLANNED FOR 01/02/21, CURRENTLY SPLINTED Chronic back pain Chronic kidney disease, stage 4 (severe) PT REPORTS KIDNEY DISEASE STAGE 4 - MONITORS...NO CURRENT OR HX DIALYSIS Depression Diabetes mellitus type 2, diet-controlled Glucose well controlled per patient > NO MEDS Dyslipidemia Esophageal stricture HX ESOPHAGEAL DILATION YRS AGO - NO ISSUES AT PRESENT Frequent UTI HX OF FREQUENT UTI'S - HX SEPSIS X 2 - NO KNOWN UTI CURRENTLY GERD (gastroesophageal reflux disease) Well controlled and stable History of kidney stones HTN (hypertension) Migraine Urinary incontinence REASON FOR UPCOMING PROCEDURE Surgical History H/O bladder repair surgery H/O repair of left rotator cuff H/O: hysterectomy History of back surgery LUMBAR X2 History of back surgery JUL 2020 , SI JOINT FUSION RIGHT History of cataract surgery BILAT History of colonoscopy History of cystoscopy bilat stents , NO STENTS CURRENT - TOTAL OF 2 (ONE UNDER ANESTHESIA AND ONE IN THE OFFICE) - MOST RECENT JUN 2020 History of esophagogastroduodenoscopy (EGD) History of hip replacement left and right History of nasal surgery History of tooth extraction Hx of fusion of cervical spine ROM IS GOOD PER PT Family History Brother Myocardial infarction, Onset Age: 46 Fatal Diabetes 4 BROTHERS WITH THIS Mother Parkinson's disease Father Multiple sclerosis Social History Smoking Status: Never smoker Second Hand Exposure: No; Hx Alcohol Use: No Hx Substance Use: No Preferred Language: [place] Islander Communication Ability: Effective Developmental Services Worker Required: No Beliefs That Will Affect Care: None marital status: Current Living Situation: Spouse Current Living Situation Comment: Home with spouse Feels Safe at Home: Yes Assistive Devices: Hearing Aid - Bilateral Review of Systems See HPI for pertinent positives & negatives. and A total of 10 systems reviewed and were otherwise negative Physical Exam Vital Signs Vital Signs - 24 hr 01/14/21 21:01 01/14/21 23:56 01/15/21 01:34 Temperature 36.5 C 37.6 C H 37.0 C Temperature Source Temporal Artery Scan Oral Oral Pulse Rate 92 H Pulse Rate [Apical] Respiratory Rate 16 Respiratory Depth Normal Blood Pressure [Right Arm] Blood Pressure Mean [Right Arm] Blood Pressure Position Lying Pulse Oximetry 92 Oxygen Delivery Method Room Air Sepsis Recent Fever Within 48 Hours No Sepsis New/Unexplained Change in Mental Status No Sepsis Action Taken by Nursing No Action Required 01/15/21 02:45 Temperature Temperature Source Pulse Rate Pulse Rate [Apical] 72 Respiratory Rate 14 Respiratory Depth Normal Blood Pressure [Right Arm] 171/75 H Blood Pressure Mean [Right Arm] 107 Blood Pressure Position Pulse Oximetry 94 Oxygen Delivery Method Room Air Sepsis Recent Fever Within 48 Hours Sepsis New/Unexplained Change in Mental Status Sepsis Action Taken by Nursing Vital signs reviewed. General: Well-appearing 75 yo female, in no significant distress. HEENT: No conjunctival injection, PERRLA, neck supple. Atraumatic. Cardiovascular: Regular rate and rhythm, no extra sounds. Pulmonary: Clear to auscultation bilaterally, normal work of breathing. Abdomen: Soft, obese, nontender, nondistended, positive bowel sounds. Musculoskeletal: Atraumatic, no peripheral edema. : hahn cath in place, dark straw colored urine with mild sediment noted Neurologic: Patient awake alert and oriented x 3 Skin: Warm, dry, no rash Course Administered Medications Discontinued Medications Acetaminophen (Acetaminophen 325 Mg Tab) 650 mg PO Q4H PRN PRN Reason: pain/fever Stop: 02/14/21 04:23 Last Admin: 01/15/21 09:02 Dose: 650 mg Documented by: [id number] Atorvastatin Calcium (Atorvastatin 40 Mg Tab) 40 mg PO QPM DELORIS Stop: 02/14/21 20:59 Last Admin: 01/16/21 21:31 Dose: 40 mg Documented by: [id number] Admin: 01/15/21 21:22 Dose: 40 mg Documented by: [id number] Bupropion HCl (Bupropion Sr 150 Mg Tabcr) 150 mg PO BID DELORIS Stop: 02/14/21 08:59 Last Admin: 01/17/21 09:00 Dose: 150 mg Documented by: [id number] Admin: 01/16/21 21:31 Dose: 150 mg Documented by: [id number] Admin: 01/16/21 09:23 Dose: 150 mg Documented by: [id number] Admin: 01/15/21 21:22 Dose: 150 mg Documented by: [id number] Admin: 01/15/21 09:03 Dose: 150 mg Documented by: [id number] Docusate Sodium (Docusate Sodium 100 Mg Cap) 100 mg PO BID DELORIS Stop: 02/15/21 20:59 Last Admin: 01/17/21 09:03 Dose: 100 mg Documented by: [id number] Admin: 01/16/21 21:31 Dose: 100 mg Documented by: [id number] Enoxaparin Sodium (Enoxaparin Inj 40 Mg/0.4 Ml Syr) 40 mg SQ Q24H DELORIS Stop: 02/14/21 05:59 Last Admin: 01/17/21 05:41 Dose: 40 mg Documented by: [id number] Admin: 01/16/21 05:40 Dose: 40 mg Documented by: [id number] Admin: 01/15/21 06:06 Dose: 40 mg Documented by: [id number] Sodium Chloride (Nss) 500 mls @ 999 mls/hr IV .Q31M STA Stop: 01/15/21 00:00 Last Infusion: 01/15/21 01:34 Dose: 0 mls/hr Documented by: [id number] Admin: 01/15/21 00:09 Dose: 999 mls/hr Documented by: [id number] Sodium Chloride (Nss 1000ml) 1,000 mls @ 125 mls/hr IV .Q8H STA Stop: 01/15/21 07:29 Last Infusion: 01/15/21 05:21 Dose: 0 mls/hr Documented by: [id number] Admin: 01/15/21 00:12 Dose: 125 mls/hr Documented by: [id number] Acetaminophen (Ofirmev) 1,000 mg in 100 mls @ 400 mls/hr IV NOW STA Stop: 01/15/21 00:01 Last Infusion: 01/15/21 01:34 Dose: 0 mls/hr Documented by: [id number] Admin: 01/15/21 00:10 Dose: 400 mls/hr Documented by: [id number] Ciprofloxacin (Cipro / D5w) 400 mg in 200 mls @ 100 mls/hr IV NOW STA; Protocol Stop: 01/15/21 01:53 Last Infusion: 01/15/21 02:13 Dose: 0 mls/hr Documented by: [id number] Admin: 01/15/21 00:13 Dose: 100 mls/hr Documented by: [id number] Sodium Chloride (Nss 1000ml) 1,000 mls @ 100 mls/hr IV .Q10H DELORIS Stop: 01/15/21 14:23 Last Infusion: 01/15/21 16:36 Dose: 0 mls/hr Documented by: [id number] Admin: 01/15/21 05:13 Dose: 100 mls/hr Documented by: [id number] Cefepime HCl 2,000 mg/ Syringe 20 mls @ 5 mls/min IV Q24H DELORIS; Protocol Stop: 01/25/21 04:59 Last Admin: 01/17/21 05:41 Dose: 5 mls/min Documented by: [id number] Admin: 01/16/21 05:40 Dose: 5 mls/min Documented by: [id number] Admin: 01/15/21 05:12 Dose: 5 mls/min Documented by: [id number] Insulin Aspart (Insulin Aspart 100 Units/Ml 3 Ml Pen) 0 units SC ACHS DELORIS Stop: 02/14/21 07:29 Last Admin: 01/17/21 09:03 Dose: Not Given Documented by: [id number] Admin: 01/16/21 21:23 Dose: Not Given Documented by: [id number] Cosigned by: [id number] Admin: 01/16/21 17:27 Dose: Not Given Documented by: [id number] Cosigned by: [id number] Admin: 01/16/21 12:25 Dose: Not Given Documented by: [id number] Cosigned by: [id number] Admin: 01/16/21 09:01 Dose: Not Given Documented by: [id number] Cosigned by: [id number] Admin: 01/15/21 21:03 Dose: Not Given Documented by: [id number] Admin: 01/15/21 17:53 Dose: Not Given Documented by: [id number] Admin: 01/15/21 13:21 Dose: Not Given Documented by: [id number] Admin: 01/15/21 09:06 Dose: Not Given Documented by: [id number] Losartan Potassium (Losartan Potassium 25 Mg Tab) 25 mg PO QAM DELORIS Stop: 02/14/21 08:59 Last Admin: 01/17/21 09:00 Dose: 25 mg Documented by: [id number] Admin: 01/16/21 09:23 Dose: 25 mg Documented by: [id number] Admin: 01/15/21 09:03 Dose: 25 mg Documented by: [id number] Meloxicam (Meloxicam 7.5 Mg Tab) 15 mg PO QAM DELORIS Stop: 02/14/21 08:59 Last Admin: 01/17/21 09:00 Dose: 15 mg Documented by: [id number] Admin: 01/16/21 09:23 Dose: 15 mg Documented by: [id number] Admin: 01/15/21 09:03 Dose: 15 mg Documented by: [id number] Nortriptyline HCl (Nortriptyline Hcl 25 Mg Cap) 50 mg PO DELORIS Stop: 02/14/21 20:59 Last Admin: 01/16/21 21:31 Dose: 50 mg Documented by: [id number] Admin: 01/15/21 21:23 Dose: 50 mg Documented by: [id number] Oxybutynin Chloride (Oxybutynin Chloride Xl 5 Mg Tabcr) 10 mg PO QAM DELORIS Stop: 02/14/21 08:59 Last Admin: 01/17/21 09:01 Dose: 10 mg Documented by: [id number] Admin: 01/16/21 09:23 Dose: 10 mg Documented by: [id number] Admin: 01/15/21 09:03 Dose: 10 mg Documented by: [id number] Pantoprazole Sodium (Pantoprazole 40 Mg Tab) 40 mg PO QAM DELORIS Stop: 02/14/21 08:59 Last Admin: 01/17/21 09:01 Dose: 40 mg Documented by: [id number] Admin: 01/16/21 09:23 Dose: 40 mg Documented by: [id number] Admin: 01/15/21 09:03 Dose: 40 mg Documented by: [id number] Polyethylene Glycol (Polyethylene (Miralax) 17 Gm Pack) 17 gm PO DAILY PRN PRN Reason: Constipation Stop: 02/14/21 04:23 Last Admin: 01/15/21 16:49 Dose: 17 gm Documented by: [id number] Polyethylene Glycol (Polyethylene (Miralax) 17 Gm Pack) 17 gm PO ONE ONE Stop: 01/16/21 16:25 Last Admin: 01/16/21 17:04 Dose: Not Given Documented by: [id number] Trazodone HCl (Trazodone Hcl 100 Mg Tab) 100 mg PO HS [facility] Stop: 02/14/21 20:59 Last Admin: 01/16/21 21:31 Dose: 100 mg Documented by: [id number] Admin: 01/15/21 21:22 Dose: 100 mg Documented by: [id number] Verapamil HCl (Verapamil Hcl 240 Mg Tabcr) 240 mg PO QAM [facility] Stop: 02/14/21 08:59 Last Admin: 01/17/21 09:01 Dose: 240 mg Documented by: [id number] Admin: 01/16/21 09:23 Dose: 240 mg Documented by: [id number] Admin: 01/15/21 09:03 Dose: 240 mg Documented by: [id number] Medical Decision Making Differential Diagnosis Viral syndrome, pneumonia, influenza, meningitis, urinary tract infection, sepsis, bacteremia, as well as other pathologies. Medical Records Attestation: I reviewed the patient's medical records. Home Medications Current Medication List: was personally reviewed by me Laboratory Data Attestation: I reviewed the patient's lab results. Result diagrams: 01/17/21 05:50 01/17/21 05:50 Lab Results 01/14/21 01/14/21 01/14/21 Range/Units 23:30 23:30 23:30 WBC 13.52 H (4.8-10.8) K/uL RBC 4.14 L (4.2-5.4) M/uL Hgb 11.5 L (12.0-16.0) g/dL Hct 35.7 L (37-47) % MCV 86.2 (80-100) fL MCH 27.8 (25-34) pg MCHC 32.2 (32-36) g/dL RDW Std Deviation 43.0 (36.4-46.3) fL RDW Coeff of Cristel 13.6 (11.5-14.5) % Plt Count 192 (130-400) K/uL MPV 9.5 (7.4-10.4) fL Immature Gran % (Auto) 0.2 % Neut % (Auto) 88.9 % Lymph % (Auto) 5.8 % [place] % (Auto) 4.5 % Eos % (Auto) 0.5 % Baso % (Auto) 0.1 % Neut # (Auto) 12.00 H (1.4-6.5) K/uL Lymph # (Auto) 0.79 L (1.2-3.4) K/uL [place] # (Auto) 0.61 H (0.11-0.59) K/uL Eos # (Auto) 0.07 (0-0.5) K/uL Baso # (Auto) 0.02 (0-0.2) K/uL Immature Gran # (Auto) 0.03 H (0.00-0.02) K/uL Sodium 137 (136-145) mmol/L Potassium 4.2 (3.5-5.1) mmol/L Chloride 106 (98-107) mmol/L Carbon Dioxide 25 (21-32) mmol/L Anion Gap 6.0 (3-11) BUN 21 H (7-18) mg/dl Creatinine 1.07 (0.6-1.2) mg/dl Est Cr Clr Drug Dosing Not Reportable Est GFR ( Amer) 58.8 ml/min Est GFR (Non-Af Amer) 50.7 ml/min BUN/Creatinine Ratio 19.4 (10-20) Glucose 156 H (70-99) mg/dl Lactate 0.7 (0.4-2.0) mmol/L Calcium 8.8 (8.5-10.1) mg/dl Total Bilirubin 0.4 (0.2-1) mg/dl AST 6 L (15-37) U/L ALT 13 (12-78) U/L Alkaline Phosphatase 117 (45-117) U/L Total Protein 6.7 (6.4-8.2) gm/dl Albumin 3.2 L (3.4-5.0) gm/dl Globulin 3.5 (2.5-4.0) gm/dl Albumin/Globulin Ratio 0.9 (0.9-2) Procalcitonin (0-0.5) ng/ml Urine Color Urine Appearance (Clear) Urine pH (4.5-7.5) Ur Specific [place] (1.000-1.030) Urine Protein (Negative) Urine Glucose (UA) (Negative) Urine Ketones (Negative) Urine Blood (Negative) Urine Nitrite (Negative) Urine Bilirubin (Negative) Urine Urobilinogen (Negative) Ur Leukocyte Esterase (Negative) Urine WBC (Auto) (0-5) /hpf Urine RBC (Auto) (0-4) /hpf U Hyaline Cast (Auto) (0-5) /lpf U Epithel Cells (Auto) (0-5) /lpf Urine Bacteria (Auto) (Negative) Urine Yeast COVID-19 Eval Order SARS-CoV-2 (PCR) (Negative) 01/14/21 01/15/21 01/15/21 Range/Units 23:30 00:25 02:00 WBC (4.8-10.8) K/uL RBC (4.2-5.4) M/uL Hgb (12.0-16.0) g/dL Hct (37-47) % MCV (80-100) fL MCH (25-34) pg MCHC (32-36) g/dL RDW Std Deviation (36.4-46.3) fL RDW Coeff of Cristel (11.5-14.5) % Plt Count (130-400) K/uL MPV (7.4-10.4) fL Immature Gran % (Auto) % Neut % (Auto) % Lymph % (Auto) % [place] % (Auto) % Eos % (Auto) % Baso % (Auto) % Neut # (Auto) (1.4-6.5) K/uL Lymph # (Auto) (1.2-3.4) K/uL [place] # (Auto) (0.11-0.59) K/uL Eos # (Auto) (0-0.5) K/uL Baso # (Auto) (0-0.2) K/uL Immature Gran # (Auto) (0.00-0.02) K/uL Sodium (136-145) mmol/L Potassium (3.5-5.1) mmol/L Chloride (98-107) mmol/L Carbon Dioxide (21-32) mmol/L Anion Gap (3-11) BUN (7-18) mg/dl Creatinine (0.6-1.2) mg/dl Est Cr Clr Drug Dosing Est GFR ( Amer) ml/min Est GFR (Non-Af Amer) ml/min BUN/Creatinine Ratio (10-20) Glucose (70-99) mg/dl Lactate (0.4-2.0) mmol/L Calcium (8.5-10.1) mg/dl Total Bilirubin (0.2-1) mg/dl AST (15-37) U/L ALT (12-78) U/L Alkaline Phosphatase (45-117) U/L Total Protein (6.4-8.2) gm/dl Albumin (3.4-5.0) gm/dl Globulin (2.5-4.0) gm/dl Albumin/Globulin Ratio (0.9-2) Procalcitonin 0.60 H (0-0.5) ng/ml Urine Color Dark Yellow Urine Appearance Cloudy A (Clear) Urine pH 7.0 (4.5-7.5) Ur Specific [place] 1.011 (1.000-1.030) Urine Protein 1+ H (Negative) Urine Glucose (UA) Negative (Negative) Urine Ketones Negative (Negative) Urine Blood 3+ H (Negative) Urine Nitrite Positive A (Negative) Urine Bilirubin Negative (Negative) Urine Urobilinogen Negative (Negative) Ur Leukocyte Esterase 2+ H (Negative) Urine WBC (Auto) >30 H (0-5) /hpf Urine RBC (Auto) >30 H (0-4) /hpf U Hyaline Cast (Auto) 1-5 (0-5) /lpf U Epithel Cells (Auto) 5-10 H (0-5) /lpf Urine Bacteria (Auto) Negative (Negative) Urine Yeast Not Reportable COVID-19 Eval Order Covid19 at [facility] SARS-CoV-2 (PCR) (Negative) 01/15/21 Range/Units 02:00 WBC (4.8-10.8) K/uL RBC (4.2-5.4) M/uL Hgb (12.0-16.0) g/dL Hct (37-47) % MCV (80-100) fL MCH (25-34) pg MCHC (32-36) g/dL RDW Std Deviation (36.4-46.3) fL RDW Coeff of Cristel (11.5-14.5) % Plt Count (130-400) K/uL MPV (7.4-10.4) fL Immature Gran % (Auto) % Neut % (Auto) % Lymph % (Auto) % [place] % (Auto) % Eos % (Auto) % Baso % (Auto) % Neut # (Auto) (1.4-6.5) K/uL Lymph # (Auto) (1.2-3.4) K/uL [place] # (Auto) (0.11-0.59) K/uL Eos # (Auto) (0-0.5) K/uL Baso # (Auto) (0-0.2) K/uL Immature Gran # (Auto) (0.00-0.02) K/uL Sodium (136-145) mmol/L Potassium (3.5-5.1) mmol/L Chloride (98-107) mmol/L Carbon Dioxide (21-32) mmol/L Anion Gap (3-11) BUN (7-18) mg/dl Creatinine (0.6-1.2) mg/dl Est Cr Clr Drug Dosing Est GFR ( Amer) ml/min Est GFR (Non-Af Amer) ml/min BUN/Creatinine Ratio (10-20) Glucose (70-99) mg/dl Lactate (0.4-2.0) mmol/L Calcium (8.5-10.1) mg/dl Total Bilirubin (0.2-1) mg/dl AST (15-37) U/L ALT (12-78) U/L Alkaline Phosphatase (45-117) U/L Total Protein (6.4-8.2) gm/dl Albumin (3.4-5.0) gm/dl Globulin (2.5-4.0) gm/dl Albumin/Globulin Ratio (0.9-2) Procalcitonin (0-0.5) ng/ml Urine Color Urine Appearance (Clear) Urine pH (4.5-7.5) Ur Specific [place] (1.000-1.030) Urine Protein (Negative) Urine Glucose (UA) (Negative) Urine Ketones (Negative) Urine Blood (Negative) Urine Nitrite (Negative) Urine Bilirubin (Negative) Urine Urobilinogen (Negative) Ur Leukocyte Esterase (Negative) Urine WBC (Auto) (0-5) /hpf Urine RBC (Auto) (0-4) /hpf U Hyaline Cast (Auto) (0-5) /lpf U Epithel Cells (Auto) (0-5) /lpf Urine Bacteria (Auto) (Negative) Urine Yeast COVID-19 Eval Order SARS-CoV-2 (PCR) NEGATIVE (Negative) Imaging Data Attestation: I personally reviewed and interpreted this imaging study as follows: My Impression: Chest x-ray to my interpretation reveals cardiomegaly, hardware in the cervical spine. No focal lung consolidation or failure. There is intraluminal air under the left hemidiaphragm. Blood Pressure Blood Pressure Findings: Normal blood pressure Blood Pressure Disposition: did not require urgent referral MDM Narrative This patient was evaluated and appeared to be in no significant distress. IV access was obtained and laboratory work was drawn. An order for cardiac monitoring was placed and the patient is noted to be in a normal sinus rhythm at 69 bpm. Blood cultures were drawn and a urine was sent. The patient was medicated with IV Cipro she was on p.o. Keflex. Patient does have a slight WBC elevation and a UA that is concerning for infection. Case was discussed with the hospitalist service who will evaluate the patient for further management. Patient and were informed of the findings and plan and agree. Impression & Plan Fever, UTI (urinary tract infection), S/P cystoscopy Discharge Plan Visit Data Chief Complaint: Fever Stated Complaint: HAD PROCEDURE TODAY, NOW RUNNING A FEVER ED Provider: Alma Gomez Discharge Problem: Fever, UTI (urinary tract infection), S/P cystoscopy Patient Disposition: Admitted As Inpatient Discharge Instructions Interventions: ED Discharge Assessment Last Done: 01/15/21 03:59
[2021-01-15] MEDS ORDERED: SUMAtriptan succinate 50 MG TAB PO PRN (04:24)
[2021-01-15] MEDS ORDERED: PHENAZOPYRIDINE HCL 200 MG TAB PO PRN (04:24)
[2021-01-15] MEDS ORDERED: ACETAMINOPHEN 325 MG TAB PO PRN (04:24)
[2021-01-15] MEDS ORDERED: POLYETHYLENE (MIRALAX) 17 GM PACK PO PRN (04:24)
[2021-01-15] MEDS ORDERED: SODIUM CHLORIDE 0.9% 1000ML 1,000 ML IV SCH (04:24)
[2021-01-15] MEDS ORDERED: ONDANSETRON INJ 2 MG/ML 2 ML VIAL IV PRN (04:24)
--- NOTE | 2021-01-15 04:53 | History and Physical Report ---
DATE OF ADMISSION: 01/15/2021. CHIEF COMPLAINT: Fever. HISTORY OF PRESENT ILLNESS: This is a 75-year-old female with past medical history significant for type 2 diabetes, dyslipidemia, pancreatic benign neoplasm, hypertension, recurrent UTI, chronic kidney disease stage III, sacroiliitis, migraines, normocytic anemia, recurrent depression, generalized anxiety disorder, persistent insomnia, history of sepsis, obesity, status post laminectomy syndrome who lives at home with her . Ambulates okay, sometimes uses a cane. Comes because of fever. The patient yesterday had cystoscopy for incontinence. The patient states she had a cystoscopy done in June for recurrent UTIs and since then having incontinence. She was sent home on Keflex, but had developed fever. In the ER, temperature was 37.6, and white count was 13.5 and urinalysis was positive. She is having some headache, no blurred visions, no earache, no runny nose, no sore throat, no cough, no chest pain, no shortness of breath. She had an episode of vomiting earlier, then she received Percocet. No abdominal pain, no flank pains. No diarrhea or constipation. Currently constantly Incontinent. Currently, resting comfortably and hemodynamically stable. ALLERGIES: DULOXETINE, FLONASE, PREGABALIN. PAST MEDICAL HISTORY: As mentioned above. PAST SURGICAL HISTORY: Left shoulder arthroscopy, cystourethroscopy with lithotripsy, hysteroscopy, cervical fusion surgery, lasering of secondary cataract, lumbar spine decompression and fusion, left partial removal of eye fluid, cataract surgery, repair of nasal septum, repair of sciatic nerve, total abdominal hysterectomy with removal of tubes, left total hip replacement. MEDICATIONS: The patient is on Tylenol 650 mg p.o. p.r.n., atorvastatin 40 mg p.o. p.m., bupropion 150 mg p.o. b.i.d., Keflex 500 mg p.o. b.i.d., Excedrin Extra Strength p.r.n., losartan 25 mg p.o. a.m., meloxicam 15 mg p.o. a.m., nortriptyline 50 mg p.o. at bedtime, omeprazole 20 mg p.o. a.m., oxybutynin 10 mg p.o. a.m., Pyridium 200 mg p.o. 8 hours p.r.n., Imitrex p.r.n., trazodone 100 mg p.o. at bedtime, verapamil 240 mg p.o. a.m. FAMILY HISTORY: Significant for brother has diabetes, heart disorder; son has hypertension; daughter has headaches. SOCIAL HISTORY: , no smoking, no alcohol, no drug use. REVIEW OF SYSTEMS: As per HPI. Rest of the review of systems is negative. PHYSICAL EXAMINATION: GENERAL: The patient is of moderate build, not in acute distress. VITAL SIGNS: T-max 37.6, pulse 92, respiratory rate 16, blood pressure 128/73, oxygen 92% on room air. HEENT: Pupils equal, round and reactive to light. Oral mucosa moist. NECK: No JVD. No neck masses. CARDIOVASCULAR: S1 and S2 heard. Regular rate and rhythm. No murmur, no gallop. RESPIRATORY SYSTEM: Normal AP diameter. No accessory muscle use. No wheezing, no crackles. ABDOMEN: Soft, bowel sounds present, nontender, nondistended. No CVA tenderness. No guarding or rigidity. CENTRAL NERVOUS SYSTEM: Cranial nerves II-XII grossly intact, nonfocal. EXTREMITIES: No edema, no erythema. LABORATORY DATA: WBC 13.5, hemoglobin 11.5, hematocrit 35.7, platelets 192. Sodium 137, potassium 4.2, chloride 106, bicarbonate 25, BUN 21, creatinine 1.07, serum glucose 156. Lactate 0.7, calcium 8.8, total bilirubin 0.4, AST 6, ALT 13, alkaline phosphatase 117. Procalcitonin 0.6. Urinalysis is positive for nitrite. SARS-CoV-2 PCR pending. IMAGING DATA: Chest x-ray, no acute findings. ASSESSMENT AND PLAN: This is a 75-year-old female who presents with fever. 1. Fever: Recurrent urinary tract infection, status post cystoscopy yesterday for incontinence and got discharged on Keflex, but still comes with fever. Her UA is positive. Since she failed p.o. antibiotics, we will admit to hospital for IV antibiotics. Received a dose of IV Cipro in the ER. Will continue with IV cefepime. Follow the cultures. Recent cultures levy sensitive e.coli. Gentle fluids. Monitor in the medical floor. 2. History of hypertension: Continue her home medication of losartan. 3. History of hyperlipidemia: Continue statin. 4. History of generalized anxiety disorder and depression: Continue, bupropion, nortriptyline. 5. Insomnia: Continue trazodone. 6. Migraines: Continue home pain medications. 7. Urinary incontinence. Continue oxybutynin. Follow up with urology. 8. Diabetes: Not on any medications. Will follow HbA1c levels. Placed on insulin sliding scale. 9. Chronic kidney disease stage III: Creatinine is 1.07. Will follow the labs. 10. Deep venous thrombosis prophylaxis: Lovenox. DISPOSITION: Closely monitor in the medical floor. PT, OT prior to discharge. Social service to help with discharge planning. Job ID: [id number] DANIELA
[2021-01-15] MEDS ORDERED: CEFEPIME CONSULT ACTIVE PRN (04:54)
[2021-01-15] MEDS: CEFEPIME 2,000 MG in SYRINGE 0 ML IV SCH (05:12)
[2021-01-15] MEDS ORDERED: CARBOHYDRATES FOR HYPOGLYCEMIA PO PRN (05:15)
[2021-01-15] MEDS ORDERED: DEXTROSE 50% 50 ML SYRINGE IV PRN (05:15)
[2021-01-15] MEDS ORDERED: GLUCOSE 40% GEL 15 GM TUBE PO PRN (05:15)
[2021-01-15] MEDS ORDERED: GLUCAGON FOR INJ 1 MG VIAL IM PRN (05:15)
[2021-01-15] MEDS ORDERED: GLUCOSE 10 TABS/TUBE PO PRN (05:15)
[2021-01-15] MEDS: ENOXAPARIN INJ 40 MG/0.4 ML SYR SQ SCH (06:06)
[2021-01-15 06:55] LABS: Basophils # (auto) 0.01 K/uL (0-0.2); Basophils % (auto) 0.1 %; Eosinophils # (auto) 0.19 K/uL (0-0.5); Eosinophils % (auto) 1.9 %; Hematocrit (blood only) 33.5 % (37-47); Hemoglobin 10.5 g/dL (12.0-16.0); Immature Granulocytes # (auto) 0.01 K/uL (0.00-0.02); Immature Granulocytes % (auto) 0.1 %; Lymphocytes # (auto) 1.21 K/uL (1.2-3.4); Mean Corpuscular Hemoglobin 27.4 pg (25-34); Mean Corpuscular Hgb Conc 31.3 g/dL (32-36); Mean Corpuscular Volume 87.5 fL (80-100); Monocytes % (auto) 7.9 %; Neutrophils # (auto) 7.85 K/uL (1.4-6.5); Platelet Count 172 K/uL (130-400); RDW Coefficient of Variation 13.7 % (11.5-14.5); RDW Standard Deviation 43.6 fL (36.4-46.3); Red Blood Count 3.83 M/uL (4.2-5.4); White Blood Count 10.07 K/uL (4.8-10.8)
[2021-01-15 07:29] LABS: BUN Creatinine Ratio 18.1 (10-20); Calcium 8.2 mg/dl (8.5-10.1); Creatinine Clr Calc Pharmacy 45.4 ml/min; Est GFR (African American) 61.6 ml/min; Est GFR (Non-African American) 53.1 ml/min; Magnesium 1.8 mg/dl (1.8-2.4)
[2021-01-15 08:11] LABS: Estimated Average Glucose 134 mg/dl; Hemoglobin A1C 6.3 % (4.5-5.6)
--- NOTE | 2021-01-15 08:13 | XRay Report ---
XR chest 1V portable HISTORY: 75 years-old Female Fever acute fever COMPARISON: Chest radiograph 09/15/2020 TECHNIQUE: Portable AP view of the chest FINDINGS: Cardiac silhouette is enlarged. Mild chronic interstitial coarsening. Mild persistent left hemidiaphr agmatic elevation. There is no pneumothorax, pleural effusion, airspace consolidation or overt pulmon colleen edema. Minimal linear scarring/atelectasis of the right lung base. Degenerative changes of the sh oulders and spine. Cervical spinal fusion hardware. IMPRESSION: No acute process. ACT 112: Negative or not required by law. The above report was generated using voice recognition software. It may contain grammatical, syntax o r spelling errors. Electronically signed by: Zane Oquendo M.D. 01/15/2021 8:12 AM
[2021-01-15] MEDS: VERAPAMIL HCL 240 MG TABCR PO SCH (09:03)
[2021-01-15] MEDS: PANTOprazole 40 MG TAB PO SCH (09:03)
[2021-01-15] MEDS: LOSARTAN POTASSIUM 25 MG TAB PO SCH (09:03)
[2021-01-15] MEDS: MELOXICAM 7.5 MG TAB PO SCH (09:03)
[2021-01-15] MEDS: OXYBUTYNIN CHLORIDE XL 5 MG TABCR PO SCH (09:03)
[2021-01-15] MEDS: buPROPion SR 150 MG TABCR PO SCH ×2 (09:03→21:22)
[2021-01-15] MEDS: INSULIN ASPART 100 UNITS/ML 3 ML PEN SC SCH ×4 (09:06→21:03)
--- NOTE | 2021-01-15 15:03 | Urology Consultation ---
Date of Consultation January 15, 2021 Assessment & Plan (1) UTI (urinary tract infection): 75 year old female admitted for fever and complicated UTI s/p cystoscopy procedure. - Pt POD #1 s/p Cystoscopy with Hydrodistension under Anesthesia, Instillation of Contrast for Cystogram, bilateral retrograde pyelograms, urethral dilation with Dr. Valdez - Afebrile, nontoxic, VSS, lab work reviewed - creatinine 1.03, WBC 10.07 - Urine and BCx pending - on IV Cefepime, follow cultures - No acute intervention indicated at this time - Continue supportive care, antibiotics, and management per primary team - Maintain Freire catheter for now - likely for duration of antibiotic therapy - Will continue to follow History of Present Illness Reason for Consultation: Complicated UTI s/p cystoscopy Requesting Physician: Dr. Cueva Attending Physician: Chinyere Cueva MD History of Present Illness 75 year old female with past medical history of hypertension, type 2 diabetes, dyslipidemia, chronic kidney disease, depression, anxiety, incontinence, and lower urinary tract symptoms admitted for fever, complicated UTI s/p cystoscopy procedure. Patient is known to our service. She is recently s/p Cystoscopy with Hydrodistension under Anesthesia, Instillation of Contrast for Cystogram, bilateral retrograde pyelograms, urethral dilation on 01/14/[address] Valdez. Patient was discharged to home after procedure with Keflex. She presented to [facility] ED on 01/14/21 with complaint of fever and hematuria in the Freire catheter bag. She was afebrile on arrival. Lab work showed creatinine 1.07, WBC 13.52, Hgb 11.5. UA positive for nitrates, 2+ leukocytes, >30 WBCs, >30 RBCs, negative bacteria. Urine and blood cultures collected. She was treated with IV fluids, IV Ciprofloxacin, and Acetaminophen in ED. She was admitted to hospital medicine service. Our service is consulted for complicated UTI s/p cystoscopy. Chart review: Afebrile Creatinine 1.03 WBC 10.07 Hgb 10.5 UC&S pending BCx pending On IV Cefepime Patient seen and examined at bedside. She is resting in bed on arrival, arouses easily to her name. She is feeling better since admission. No abdominal or bladder pain. She has mild right flank discomfort. She is tolerating diet. No nausea or vomiting. Tolerating Freire catheter. Freire intact, patent and draining yellow urine with small amount of blood tinged sediment in tubing. No fever or chills. No additional concerns at this time. Allergies Allergy/AdvReac Type Severity Reaction Status Date / Time duloxetine [From Cymbalta] Allergy Unknown Unknown Verified 01/14/21 23:13 fluticasone [From Flonase] AdvReac Unknown Nausea Verified 01/14/21 23:13 pregabalin AdvReac Unknown Edema Verified 01/14/21 23:13 Home Medications Medication Instructions Recorded Confirmed Type atorvastatin [Lipitor] 40 mg PO QPM 09/01/18 01/14/21 History bupropion HCl 150 mg PO BID 09/01/18 01/14/21 History meloxicam [Mobic] 15 mg PO QAM 09/01/18 01/14/21 History nortriptyline [Pamelor] 50 mg PO HS 09/01/18 01/14/21 History omeprazole 20 mg PO QAM 09/01/18 01/14/21 History sumatriptan succinate [Imitrex] 50 mg PO DIRECTED PRN 09/01/18 01/14/21 History trazodone 100 mg PO HS 09/01/18 01/14/21 History verapamil [Calan SR] 240 mg PO QAM 09/01/18 01/14/21 History losartan [Cozaar] 25 mg PO QAM 03/23/19 01/14/21 History acetaminophen [Tylenol] 650 mg PO DIRECTED PRN 06/18/20 01/14/21 History Excedrin Extra Strength 1 tab PO UD PRN 07/25/20 01/14/21 History oxybutynin chloride 10 mg PO QAM 01/01/21 01/14/21 History cephalexin 500 mg PO BID 14 Days #28 cap 01/14/21 01/14/21 Rx phenazopyridine [Pyridium] 200 mg PO Q8H PRN #10 tab 01/14/21 01/14/21 Rx Patient History Medical History Arm fracture, left LEFT FOREARM - SURGERY PLANNED FOR 01/02/21, CURRENTLY SPLINTED Chronic back pain Chronic kidney disease, stage 4 (severe) PT REPORTS KIDNEY DISEASE STAGE 4 - MONITORS...NO CURRENT OR HX DIALYSIS Depression Diabetes mellitus type 2, diet-controlled Glucose well controlled per patient > NO MEDS Dyslipidemia Esophageal stricture HX ESOPHAGEAL DILATION YRS AGO - NO ISSUES AT PRESENT Frequent UTI HX OF FREQUENT UTI'S - HX SEPSIS X 2 - NO KNOWN UTI CURRENTLY GERD (gastroesophageal reflux disease) Well controlled and stable History of kidney stones HTN (hypertension) Migraine Urinary incontinence REASON FOR UPCOMING PROCEDURE Surgical History H/O bladder repair surgery H/O repair of left rotator cuff H/O: hysterectomy History of back surgery LUMBAR X2 History of back surgery JUL 2020 , SI JOINT FUSION RIGHT History of cataract surgery BILAT History of colonoscopy History of cystoscopy bilat stents , NO STENTS CURRENT - TOTAL OF 2 (ONE UNDER ANESTHESIA AND ONE IN THE OFFICE) - MOST RECENT JUN 2020 History of esophagogastroduodenoscopy (EGD) History of hip replacement left and right History of nasal surgery History of tooth extraction Hx of fusion of cervical spine ROM IS GOOD PER PT Family History Brother Myocardial infarction, Onset Age: 46 Fatal Diabetes 4 BROTHERS WITH THIS Mother Parkinson's disease Father Multiple sclerosis Social History Smoking Status: Never smoker Second Hand Exposure: No; Do You Dip or Chew Tobacco: No; Tobacco Cessation Education Requested by Patient: No Hx Alcohol Use: No Hx Substance Use: No Preferred Language: Arabic Communication Ability: Effective Field Rep Required: No Beliefs That Will Affect Care: None marital status: Current Living Situation: Spouse Current Living Situation Comment: Home with spouse Other Information That Helps Us Care for You: No Feels Safe at Home: Yes Safety Concerns: Feels Safe At This Time Assistive Devices: Glasses and Hearing Aid - Bilateral Review of Systems Constitutional: as per Subjective / HPI Gastrointestinal: as per Subjective / HPI Genitourinary: as per Subjective / HPI Physical Exam Constitutional: well developed and well nourished; no acute distress and not ill appearing Respiratory: normal respiratory effort and able to speak in complete sentences; no respiratory distress and no labored breathing Cardiovascular: Extremities: no pedal edema Gastrointestinal (Abdomen): Inspection/Auscultation: abdomen normal to inspection; abdomen not distended Percussion/Palpation: abdomen soft; abdomen nontender and no guarding Musculoskeletal: Head/Neck/Chest: normocephalic and head atraumatic Skin: no rashes, warm and dry Neurologic: moves all extremities Psychiatric: Orientation: alert and oriented x 3 Genitourinary: Freire catheter intact, patent, and draining yellow urine with scant blood tinged sediment in tubing Results & Data ([facility]) Vital Signs (Past 12 Hours) Vital Signs Temp Pulse Pulse Resp BP BP Pulse Ox 01/15/21 07:22 37 C 75 16 148/71 H 96 01/15/21 04:44 36.6 C 71 16 145/71 H 93 01/15/21 03:59 69 16 90/70 L 94 PG Care Time/CCT Total # of Minutes Spent Total Time Spent with Patient: Total time spent is greater than 50% in coordination of care (as documented) at patient's floor/unit and/or counseling patient: Coding Level of Care Code 99408 Inpt Consult Level 3 Diagnoses UTI (urinary tract infection) T83.511A; N39.0 Encounter type: initial encounter Indwelling urinary catheter type: indwelling urethral catheter Urinary tract infection type: catheter-associated UTI (1) UTI (urinary tract infection) Encounter type: initial encounter Indwelling urinary catheter type: indwelling urethral catheter Urinary tract infection type: catheter-associated UTI Qualified Code(s): T83.511A - Infection and inflammatory reaction due to indwelling urethral catheter, initial encounter; N39.0 - Urinary tract infection, site not specified
--- NOTE | 2021-01-15 17:57 | Communication Note ---
Date of Service: January 15, 2021 pt admitted earlier on 01/15/21 , please see H&P for detail Patient underwent cystoscopy on 01/14/2021 for urinary retention. was sent home with PO keflex return to ER with complain of fever , flank pain on right and hematuria seen at bedside , daughter was visiting feels much better , no fever or chills no nausea, tolreating diet pt is on IV cefepime pending urine culture urology consult appreciated left wrist fracture ; s/p recent ORIF by [facility] orthopedics , pt is scheduled for post op follow up and suture removal at orthopedics office given complex nature of fracture and procedure , ortho consulted to assess the post op wound and to remove suture if appropriate Chinyere Cueva MD
[2021-01-15] MEDS: traZODone HCL 100 MG TAB PO SCH (21:22)
[2021-01-15] MEDS: ATORVASTATIN 40 MG TAB PO SCH (21:22)
[2021-01-15] MEDS: NORTRIPTYLINE HCL 25 MG CAP PO SCH (21:23)
[2021-01-16] MEDS: CEFEPIME 2,000 MG in SYRINGE 0 ML IV SCH (05:40)
[2021-01-16] MEDS: ENOXAPARIN INJ 40 MG/0.4 ML SYR SQ SCH (05:40)
[2021-01-16] MEDS: INSULIN ASPART 100 UNITS/ML 3 ML PEN SC SCH ×4 (09:01→21:23)
[2021-01-16] MEDS: OXYBUTYNIN CHLORIDE XL 5 MG TABCR PO SCH (09:23)
[2021-01-16] MEDS: MELOXICAM 7.5 MG TAB PO SCH (09:23)
[2021-01-16] MEDS: buPROPion SR 150 MG TABCR PO SCH ×2 (09:23→21:31)
[2021-01-16] MEDS: LOSARTAN POTASSIUM 25 MG TAB PO SCH (09:23)
[2021-01-16] MEDS: VERAPAMIL HCL 240 MG TABCR PO SCH (09:23)
[2021-01-16] MEDS: PANTOprazole 40 MG TAB PO SCH (09:23)
--- NOTE | 2021-01-16 13:40 | Urology Progress Note ---
Date of Service January 16, 2021 Assessment & Plan (1) UTI (urinary tract infection): Plan: 75 year old female admitted for fever and suspected complicated UTI s/p cystoscopy procedure. - Pt POD #2 s/p Cystoscopy with Hydrodistension under Anesthesia, Instillation of Contrast for Cystogram, bilateral retrograde pyelograms, urethral dilation with Dr. Valdez - Afebrile, creatinine and WBC stable - no new labs at time of visit - Urine culture prelim no growth, BCx NGTD - on IV Cefepime, follow cultures - No acute intervention indicated at this time - Continue supportive care, antibiotics, and management per primary team - Okay for discharge home from perspective when medically stable - Recommend home with course of PO antibiotics for complicated UTI - based on previous E. coli sensitivities - Maintain Freire catheter for duration of antibiotic therapy - Will arrange outpatient follow-up with our service for voiding trial Thank you for allowing us to participate in the acute care of Ms. Berry. Please reconsult us with additional questions, concerns or changes in patient status. Admission and Anticipated Discharge Date Admission Date: January 15, 2021 Subjective Patient sitting up in bedside chair No acute issues overnight Feeling much better today No pain at present Tolerating PO diet, no nausea or vomiting Freire catheter intact, patent and draining clear yellow urine with small clot/sediment noted No fever or chills She feels ready for discharge Chart review: Afebrile, no new labs today, UC&S prelim no growth, BCx NGTD, On IV Cefepime No additional concerns today. Review of Systems Constitutional: as per Subjective / HPI Gastrointestinal: as per Subjective / HPI Genitourinary: as per Subjective / HPI Physical Exam Constitutional: well developed and well nourished; no acute distress and not ill appearing Respiratory: normal respiratory effort and able to speak in complete sentences; no respiratory distress and no labored breathing Gastrointestinal (Abdomen): Inspection/Auscultation: abdomen normal to inspec tion; abdomen not distended Musculoskeletal: Head/Neck/Chest: normocephalic and head atraumatic Skin: no rashes, warm and dry Neurologic: moves all extremities and awake Psychiatric: Orientation: alert and oriented x 3 Genitourinary: Freire intact, patent and draining clear yellow urine with small clot/sediment in tubing Results & Data ([facility]) Vital Signs (Past 12 Hours) Vital Signs Temp Pulse Resp BP Pulse Ox 01/16/21 06:11 36.8 C 82 16 157/76 H 93 PG Care Time/CCT Total # of Minutes Spent Total Time Spent with Patient: Total time spent is greater than 50% in coordination of care (as documented) at patient's floor/unit and/or counseling patient: Coding Level of Care Code 76297 Subseq Hosp Care Lvl 2 Diagnoses UTI (urinary tract infection) T83.511A; N39.0 Encounter type: initial encounter Indwelling urinary catheter type: indwelling urethral catheter Urinary tract infection type: catheter-associated UTI (1) UTI (urinary tract infection) Encounter type: initial encounter Indwelling urinary catheter type: indwelling urethral catheter Urinary tract infection type: catheter-associated UTI Qualified Code(s): T83.511A - Infection and inflammatory reaction due to indwelling urethral catheter, initial encounter; N39.0 - Urinary tract infection, site not specified
[2021-01-16] MEDS ORDERED: POLYETHYLENE (MIRALAX) 17 GM PACK PO ONE (16:24)
--- NOTE | 2021-01-16 19:52 | Hospitalist Progress Note ---
Date of Service January 16, 2021 Assessment & Plan (1) UTI (urinary tract infection): Plan: Patient is a 75 yr female who presents with fever after recent Cystoscopy Procedure Suspected Recurrent UTI H/O Cystoscopy with Hydrodistension under Anesthesia, Instillation of Contrast for Cystogram, bilateral retrograde pyelograms, urethral dilation with Dr. Valdez POD#2 H/O UTI diagnosed on 01/10/21 Urine Cx from 01/10/21: E.coli Repeat Urine Cx:Negative Blood Cx: Negative to date Continue IV Cefepime Appreciate Urology Input Plan to transition to PO abx upon discharge Needs follow up with Urology upon discharge Hypertension: Continue home medication Hyperlipidemia: Continue statin. Recent Wrist Fracture Orthopedics consulted Generalized anxiety disorder Depression Continue, bupropion, nortriptyline. Insomnia: Continue trazodone. Migraines: Continue home pain medications. Urinary incontinence Continue oxybutynin DM II Diet controlled HbA1C:6.3 Insulin sliding scale for now CKD III Monitor renal function DVT Px: Lovenox SQ Admission and Anticipated Discharge Date Admission Date: January 15, 2021 Subjective Patient is seen and examined at bedside States having minimal discomfort of left wrist from recent fracture Family at bedside Denies chest pain, dyspnea, dizziness, nausea, abdominal pain Reports constipation Offers no other complaints Review of Systems Review of Systems: All systems reviewed & are unremarkable except as noted in Subjective Physical Exam Physical Exam: Physical Exam: Vitals signs as noted above General Appearance:Moderately built and nourished, no apparent distress Head: normocephalic, Atraumatic Eyes: normal inspection, EOMI Neck: supple, Trachea midline Respiratory/Chest: Normal breath sounds, CTA, No accessory muscle use Cardiovascular: S1, S2, No murmur Abdomen/GI:Soft, Non tender, Bowel sounds present Extremities/Musculoskeletal:normal inspection, no edema, Left wrist in splint Neurologic/Psych:AAOX3, grossly no focal neurological deficits Skin: normal color, warm Results & Data Results & Data ([facility]) Vital Signs (Past 12 Hours) Vital Signs Temp Pulse Resp BP Pulse Ox 01/16/21 15:56 36.6 C 64 20 114/67 94 (1) UTI (urinary tract infection) Encounter type: initial encounter Indwelling urinary catheter type: indwelling urethral catheter Urinary tract infection type: catheter-associated UTI Qualified Code(s): T83.511A - Infection and inflammatory reaction due to indwelling urethral catheter, initial encounter; N39.0 - Urinary tract infection, site not specified
[2021-01-16] MEDS: DOCUSATE SODIUM 100 MG CAP PO SCH (21:31)
[2021-01-16] MEDS: ATORVASTATIN 40 MG TAB PO SCH (21:31)
[2021-01-16] MEDS: NORTRIPTYLINE HCL 25 MG CAP PO SCH (21:31)
[2021-01-16] MEDS: traZODone HCL 100 MG TAB PO SCH (21:31)
[2021-01-17] MEDS: CEFEPIME 2,000 MG in SYRINGE 0 ML IV SCH (05:41)
[2021-01-17] MEDS: ENOXAPARIN INJ 40 MG/0.4 ML SYR SQ SCH (05:41)
[2021-01-17 06:27] LABS: Hematocrit (blood only) 32.5 % (37-47); Hemoglobin 10.5 g/dL (12.0-16.0); Mean Corpuscular Hemoglobin 27.6 pg (25-34); Mean Corpuscular Hgb Conc 32.3 g/dL (32-36); Mean Corpuscular Volume 85.5 fL (80-100); Mean Platelet Volume 9.3 fL (7.4-10.4); Platelet Count 195 K/uL (130-400); RDW Coefficient of Variation 13.6 % (11.5-14.5); RDW Standard Deviation 42.5 fL (36.4-46.3); White Blood Count 6.76 K/uL (4.8-10.8)
[2021-01-17 07:02] LABS: BUN Creatinine Ratio 21.5 (10-20); Calcium 8.8 mg/dl (8.5-10.1); Est GFR (African American) 49.7 ml/min; Est GFR (Non-African American) 42.9 ml/min; Potassium 4.3 mmol/L (3.5-5.1)
[2021-01-17] MEDS: LOSARTAN POTASSIUM 25 MG TAB PO SCH (09:00)
[2021-01-17] MEDS: buPROPion SR 150 MG TABCR PO SCH (09:00)
[2021-01-17] MEDS: MELOXICAM 7.5 MG TAB PO SCH (09:00)
[2021-01-17] MEDS: OXYBUTYNIN CHLORIDE XL 5 MG TABCR PO SCH (09:01)
[2021-01-17] MEDS: VERAPAMIL HCL 240 MG TABCR PO SCH (09:01)
[2021-01-17] MEDS: PANTOprazole 40 MG TAB PO SCH (09:01)
[2021-01-17] MEDS: INSULIN ASPART 100 UNITS/ML 3 ML PEN SC SCH (09:03)
[2021-01-17] MEDS: DOCUSATE SODIUM 100 MG CAP PO SCH (09:03)
--- NOTE | 2021-01-17 09:56 | Hospitalist Progress Note ---
Date of Service January 17, 2021 Assessment & Plan (1) UTI (urinary tract infection): Plan: Patient is a 75 yr female who presents with fever after recent Cystoscopy Procedure Suspected Recurrent UTI H/O Cystoscopy with Hydrodistension under Anesthesia, Instillation of Contrast for Cystogram, bilateral retrograde pyelograms, urethral dilation with Dr. Valdez POD#2 H/O UTI diagnosed on 01/10/21 Urine Cx from 01/10/21: E.coli Repeat Urine Cx:Negative Blood Cx: Negative to date Continue IV Cefepime Day #3 Appreciate Urology Input Plan to transition to PO abx to complete the course Needs follow up with Urology upon discharge Hypertension: Continue home medication Hyperlipidemia: Continue statin. Recent Wrist Fracture Orthopedics consulted Generalized anxiety disorder Depression Continue, bupropion, nortriptyline. Insomnia: Continue trazodone. Migraines: Continue home pain medications. Urinary incontinence Continue oxybutynin DM II Diet controlled HbA1C:6.3 Insulin sliding scale for now CKD III Monitor renal function DVT Px: Lovenox SQ Admission and Anticipated Discharge Date Admission Date: January 15, 2021 Subjective Patient is seen and examined at bedside States feeling well today Offers no complaints Eager to get discharged Denies chest pain, dyspnea, dizziness, nausea, abdominal pain, wrist pain Review of Systems Review of Systems: All systems reviewed & are unremarkable except as noted in Subjective Physical Exam Physical Exam: Physical Exam: Vitals signs as noted above General Appearance:Moderately built and nourished, no apparent distress Head: normocephalic, Atraumatic Eyes: normal inspection, EOMI Neck: supple, Trachea midline Respiratory/Chest: Normal breath sounds, CTA, No accessory muscle use Cardiovascular: S1, S2, No murmur Abdomen/GI:Soft, Non tender, Bowel sounds present Extremities/Musculoskeletal:normal inspection, no edema, Left wrist in splint Neurologic/Psych:AAOX3, grossly no focal neurological deficits Skin: normal color, warm Results & Data Results & Data ([facility]) Vital Signs (Past 12 Hours) Vital Signs Temp Pulse Pulse Resp BP BP Pulse Ox 01/17/21 07:52 36.5 C 70 18 114/64 94 01/16/21 23:47 36.4 C L 86 18 151/74 H 97 (1) UTI (urinary tract infection) Encounter type: initial encounter Indwelling urinary catheter type: indwelling urethral catheter Urinary tract infection type: catheter-associated UTI Qualified Code(s): T83.511A - Infection and inflammatory reaction due to indwelling urethral catheter, initial encounter; N39.0 - Urinary tract infection, site not specified
--- NOTE | 2021-01-17 10:06 | Discharge Summary ---
Date of Service January 17, 2021 Admission HPI Per Admitting Provider CHIEF COMPLAINT: Fever. HISTORY OF PRESENT ILLNESS: This is a 75-year-old female with past medical history significant for type 2 diabetes, dyslipidemia, pancreatic benign neoplasm, hypertension, recurrent UTI, chronic kidney disease stage III, sacroiliitis, migraines, normocytic anemia, recurrent depression, generalized anxiety disorder, persistent insomnia, history of sepsis, obesity, status post laminectomy syndrome who lives at home with her . Ambulates okay, sometimes uses a cane. Comes because of fever. The patient yesterday had cystoscopy for incontinence. The patient states she had a cystoscopy done in June for recurrent UTIs and since then having incontinence. She was sent home on Keflex, but had developed fever. In the ER, temperature was 37.6, and white count was 13.5 and urinalysis was positive. She is having some headache, no blurred visions, no earache, no runny nose, no sore throat, no cough, no chest pain, no shortness of breath. She had an episode of vomiting earlier, then she received Percocet. No abdominal pain, no flank pains. No diarrhea or constipation. Currently constantly Incontinent. Currently, resting comfortably and hemodynamically stable. Admission Exam Per Admitting Provider PHYSICAL EXAMINATION: GENERAL: The patient is of moderate build, not in acute distress. VITAL SIGNS: T-max 37.6, pulse 92, respiratory rate 16, blood pressure 128/73, oxygen 92% on room air. HEENT: Pupils equal, round and reactive to light. Oral mucosa moist. NECK: No JVD. No neck masses. CARDIOVASCULAR: S1 and S2 heard. Regular rate and rhythm. No murmur, no gallop. RESPIRATORY SYSTEM: Normal AP diameter. No accessory muscle use. No wheezing, no crackles. ABDOMEN: Soft, bowel sounds present, nontender, nondistended. No CVA tenderness. No guarding or rigidity. CENTRAL NERVOUS SYSTEM: Cranial nerves II-XII grossly intact, nonfocal. EXTREMITIES: No edema, no erythema. Principal Diagnosis Urinary tract infection Discharge Data Allergies Allergy/AdvReac Type Severity Reaction Status Date / Time duloxetine [From Cymbalta] Allergy Unknown Unknown Verified 01/14/21 23:13 fluticasone [From Flonase] AdvReac Unknown Nausea Verified 01/14/21 23:13 pregabalin AdvReac Unknown Edema Verified 01/14/21 23:13 Consultations 01/15/21 01:55 ED Decision to Admit Stat 01/15/21 14:01 Consult Urology Routine 01/16/21 09:51 Consult Orthopedic Surgery Routine Hospital Course (1) UTI (urinary tract infection): Patient is a 75 yr female who presents with fever after recent Cystoscopy Procedure Suspected Recurrent UTI H/O Cystoscopy with Hydrodistension under Anesthesia, Instillation of Contrast for Cystogram, bilateral retrograde pyelograms, urethral dilation with Dr. Valdez POD#2 H/O UTI diagnosed on 01/10/21 Urine Cx from 01/10/21: E.coli Repeat Urine Cx:Negative Blood Cx: Negative to date Continue IV Cefepime Day #3 Appreciate Urology Input Plan to transition to PO abx to complete the course Needs follow up with Urology upon discharge Hypertension: Continue home medication Hyperlipidemia: Continue statin. Recent Wrist Fracture Orthopedics consulted Generalized anxiety disorder Depression Continue, bupropion, nortriptyline. Insomnia: Continue trazodone. Migraines: Continue home pain medications. Urinary incontinence Continue oxybutynin DM II Diet controlled HbA1C:6.3 Insulin sliding scale for now CKD III Monitor renal function DVT Px: Lovenox SQ Total Time Total Time Spent Total Time Spent (In Minutes): 39 minutes Discharge Plan Discharge Items Patient Disposition: Home - Self-Care Reason For Visit: FEVER Discharge Diagnosis: Urinary tract infection Activity: Per Instructions section Exercise/Sports: Gradually increase as tolerated Non-emergency contact: Primary Care Provider, Surgeon and Urologist Call non-emergency contact if: you have any medication questions, your symptoms worsen, your pain is not controlled, your pain is concerning for you and you have a fever Follow-up/Referrals: Josseline Sosa DO [Primary Care Provider] - (Date & Time 01/23/2021 12:00 PM Provider Josseline Sosa DO Department [facility] [place] ) [facility] Urology,Nurse [FAKE FOR SCHEDULES] - 01/28/21 1:00 pm Diet: Carb Consistent or DM2 and Heart Healthy Addtl Attending Provider Instructions: Follow up with your Primary care physician on 01/23/2021 12:00 PM Follow up with your Urologist on 01/28/21 at 1:00PM as scheduled Follow up with your Orthopedic Surgeon as recommended Complete the antibiotic course as prescribed. Your final blood cultures are pending at the time of discharge. Follow-up with your physician for results. Seek immediate medical attention if your symptoms reoccur or worsen Please take all medications as instructed on discharge list below. Please call if you have any questions or problems. You can reach a [facility] hospitalist on duty at [facility] 24 hours a day by calling [phone] Pending Studies at Discharge: Yes Studies:: Blood Cultures Stand-Alone Forms: My [facility], Smoking Cessation Medications and DC Order Prescriptions: New cefdinir 300 mg capsule 300 mg PO BID Qty: 14 RF: 0 Continued atorvastatin [Lipitor] 40 mg tablet 40 mg PO QPM RF: 0 bupropion HCl 150 mg tablet sustained-release 12 hr 150 mg PO BID RF: 0 meloxicam [Mobic] 15 mg tablet 15 mg PO QAM RF: 0 sumatriptan succinate [Imitrex] 50 mg Tablet 50 mg PO DIRECTED PRN (Reason: Migraine Headache) RF: 0 nortriptyline [Pamelor] 25 mg capsule 50 mg PO HS RF: 0 trazodone 100 mg tablet 100 mg PO HS RF: 0 omeprazole 20 mg capsule,delayed release(DR/EC) 20 mg PO QAM RF: 0 verapamil [Calan SR] 240 mg tablet extended release 240 mg PO QAM RF: 0 losartan [Cozaar] 25 mg tablet 25 mg PO QAM RF: 0 acetaminophen [Tylenol] 325 mg Capsule 650 mg PO DIRECTED PRN (Reason: Pain) RF: 0 Excedrin Extra Strength 250-250-65 mg Tablet 1 tab PO UD PRN (Reason: Pain) RF: 0 oxybutynin chloride 10 mg tablet extended release 24hr 10 mg PO QAM RF: 0 phenazopyridine [Pyridium] 200 mg tablet 200 mg PO Q8H PRN (Reason: pain) Qty: 10 RF: 0 Discontinued cephalexin 500 mg capsule 500 mg PO BID 14 Days Qty: 28 RF: 0 Discharge Orders: Discharge Order (Routine); Ordered 01/17/21 Ordered By: Marky Walker/Other Patient Handouts: A1C, High Blood Sugar (Hyperglycemia), Hypoglycemia (Low Blood Sugar), Managing Type 2 Diabetes, 5 Steps for Eating Healthier Admission Data Admit Date/Time: 01/15/21 02:27 Attending Provider: Marky Smith Admit Provider: Francisco Larson Primary Care Provider: Josseline Sosa Other Providers: Francisco Larson ; Rafi Brown ; Kai Odom ; Doroteo Vears ; Ely Rutherford ; Hernandez Valdez ; Josseline Rhodes ; Susan Jarvis ; Amy Burton ; Curtis Garcia ; Teetee Gavin ; Nanette Burton ; Diogo Oconnell ; Kevin Hernandez ; Shahab Velázquez ; Gracy Alvarez ; Curtis Nguyen ; Aditi Phelps ; Nile Kincaid ; Doroteo Lunsford ; Papito Fernando ; Otis White ; Doroteo Peck ; Jhony Lance ; Festus Rahman ; Austen Bonds ; Jovany Taylor ; Aditi Masterson ; Jairo Sandhu ; Arsen Hammer ; Sofia Recinos ; Shlomo Liu ; Ely Monroe Other Interventions: Discharge Summary Assessment (RN) Last Done: 01/17/21 10:19
--- NOTE | 2021-01-17 10:17 | Orthopedic Consultation ---
Date of Consultation January 17, 2021 Assessment & Plan (1) Fracture of left distal radius: She is a little over 2 weeks out from her ORIF of a left distal radius fracture by Dr. Lunsford. Her wound looks good. Sutures were removed today without difficulty. Continue with range of motion exercises on her left wrist and hand. No pushing, pulling, lifting greater than 1 pound. She should follow-up as scheduled with Dr. Lunsford at [facility] [place]. History of Present Illness Reason for Consultation: Recent left wrist surgery Attending Physician: Marky Smith MD History of Present Illness Ms. Berry is a 75-year-old male who recently underwent ORIF of a left distal radius fracture by Dr. Lunsford about 2 weeks ago on January 02. She was supposed to see him in clinic 2 days ago on January 15, but missed that appointment since she was admitted to the hospital. She was supposed to have sutures removed that day. She is leaving on vacation later today after her discharge. She reports no problems with her left wrist. She has gotten started with therapy, and has a removable thermoplastic splint made. She says that she already has another follow-up appointment scheduled with Dr. Lunsford Allergies Allergy/AdvReac Type Severity Reaction Status Date / Time duloxetine [From Cymbalta] Allergy Unknown Unknown Verified 01/14/21 23:13 fluticasone [From Flonase] AdvReac Unknown Nausea Verified 01/14/21 23:13 pregabalin AdvReac Unknown Edema Verified 01/14/21 23:13 Home Medications Medication Instructions Recorded Confirmed Type atorvastatin 40 mg tablet (Lipitor) 40 mg PO QPM 09/01/18 01/14/21 History bupropion HCl 150 mg tablet,12 hr 150 mg PO BID 09/01/18 01/14/21 History sustained-release meloxicam 15 mg tablet (Mobic) 15 mg PO QAM 09/01/18 01/14/21 History nortriptyline 25 mg capsule 50 mg PO HS 09/01/18 01/14/21 History (Pamelor) omeprazole 20 mg capsule,delayed 20 mg PO QAM 09/01/18 01/14/21 History release sumatriptan succinate 50 mg tablet 50 mg PO DIRECTED PRN 09/01/18 01/14/21 History (Imitrex) trazodone 100 mg tablet 100 mg PO HS 09/01/18 01/14/21 History verapamil 240 mg tablet,extended 240 mg PO QAM 09/01/18 01/14/21 History release (Calan SR) losartan 25 mg tablet (Cozaar) 25 mg PO QAM 03/23/19 01/14/21 History acetaminophen 325 mg capsule 650 mg PO DIRECTED PRN 06/18/20 01/14/21 History (Tylenol) [id number]-[id number] 250 1 tab PO UD PRN 07/25/20 01/14/21 History mg-250 mg-65 mg tablet (Excedrin Extra Strength) oxybutynin chloride 10 mg 10 mg PO QAM 01/01/21 01/14/21 History tablet,extended release 24 hr cephalexin 500 mg capsule 500 mg PO BID 14 Days #28 cap 01/14/21 01/14/21 Rx phenazopyridine 200 mg tablet 200 mg PO Q8H PRN #10 tab 01/14/21 01/14/21 Rx (Pyridium) cefdinir 300 mg capsule 300 mg PO BID #14 cap 01/17/21 Rx Patient History Medical History Arm fracture, left LEFT FOREARM - SURGERY PLANNED FOR 01/02/21, CURRENTLY SPLINTED Chronic back pain Chronic kidney disease, stage 4 (severe) PT REPORTS KIDNEY DISEASE STAGE 4 - MONITORS...NO CURRENT OR HX DIALYSIS Depression Diabetes mellitus type 2, diet-controlled Glucose well controlled per patient > NO MEDS Dyslipidemia Esophageal stricture HX ESOPHAGEAL DILATION YRS AGO - NO ISSUES AT PRESENT Frequent UTI HX OF FREQUENT UTI'S - HX SEPSIS X 2 - NO KNOWN UTI CURRENTLY GERD (gastroesophageal reflux disease) Well controlled and stable History of kidney stones HTN (hypertension) Migraine Urinary incontinence REASON FOR UPCOMING PROCEDURE Surgical History H/O bladder repair surgery H/O repair of left rotator cuff H/O: hysterectomy History of back surgery LUMBAR X2 History of back surgery JUL 2020 , SI JOINT FUSION RIGHT History of cataract surgery BILAT History of colonoscopy History of cystoscopy bilat stents , NO STENTS CURRENT - TOTAL OF 2 (ONE UNDER ANESTHESIA AND ONE IN THE OFFICE) - MOST RECENT JUN 2020 History of esophagogastroduodenoscopy (EGD) History of hip replacement left and right History of nasal surgery History of tooth extraction Hx of fusion of cervical spine ROM IS GOOD PER PT Family History Brother Myocardial infarction, Onset Age: 46 Fatal Diabetes 4 BROTHERS WITH THIS Mother Parkinson's disease Father Multiple sclerosis Social History Smoking Status: Never smoker Second Hand Exposure: No; Hx Alcohol Use: No Hx Substance Use: No Preferred Language: Albanian Communication Ability: Effective Liquid Sugar Fortifier Required: No Beliefs That Will Affect Care: None marital status: Current Living Situation: Spouse Current Living Situation Comment: Home with spouse Feels Safe at Home: Yes Assistive Devices: Hearing Aid - Bilateral Physical Exam Physical Exam: Examination of the left wrist reveals a very well-healed surgical incision without evidence of infection. Nonabsorbable subcutaneous suture is in place; this was removed without difficulty. Sensation is intact to light touch in the median nerve distribution. Results & Data ([facility]) Vital Signs (Past 12 Hours) Vital Signs Temp Pulse Pulse Resp BP BP Pulse Ox 01/17/21 07:52 36.5 C 70 18 114/64 94 01/16/21 23:47 36.4 C L 86 18 151/74 H 97
== END 2021-01-17 11:16 | disposition home or self-care (01) | DRG 699 ==
LOC: ED 20:56 → SUATTDRO 01-15 02:27 → 3N 01-15 02:27

== ENCOUNTER 2021-03-10 14:38 | Inpatient (IN) ==
[2021-03-10] MEDS ORDERED: CEFEPIME 2,000 MG/20 ML VIAL IV STA (15:53)
[2021-03-10] MEDS ORDERED: SODIUM CHLORIDE 0.9% 1000ML 1,000 ML IV SCH ×2 (16:00→18:57)
--- NOTE | 2021-03-10 16:03 | Emergency Department Note ---
Impression & Plan Bacteremia, Acute UTI, Chills, Positive blood culture ED Provider Note CountNAME: EDWARDO BOJORQUEZ AGE: 75 SEX: F : 1945 ARRIVES VIA: Walk-In INFORMANT: [Patient] ED PROVIDER(S): [Barry Peralta MD] CHIEF COMPLAINT: Infection HISTORY OF PRESENT ILLNESS: The patient is a 75-year-old female who has had 2 days of chills. She is always incontinent of urine so she has not noticed any change in her urination. She has not had nausea or vomiting. No cough or cold or congestion. No shortness of breath or abdominal pain. No rash. The patient was seen in this ED yest erday, she was given ceftriaxone and placed on Omnicef. She was diagnosed with a UTI. Since being discharged, 2 of her 4 blood cultures have returned with gram-negative bacilli. She was called by this hospital and told report back for hospitalization/admission. The patient feels similar to how she felt yesterday. REVIEW OF SYSTEMS: See HPI for pertinent positives and negatives. A total of ten systems were reviewed and were otherwise negative. PMHx/PSHx: See Below SOCIAL HISTORY: See Below. PHYSICAL EXAM: GENERAL: Patient is in no acute distress. HEENT: No acute trauma, normocephalic atraumatic, mucous membranes moist, no nasal congestion, no scleral icterus. NECK: No stridor, no adenopathy, no meningismus, trachea is midline. LUNGS: Clear to auscultation bilaterally, no wheeze, no rhonchi, breath sounds equal. HEART: Bradycardic, regular rhythm, no murmurs. ABDOMEN: Soft, nontender, bowel sounds positive, no hernias, no peritonitis. EXTREMITIES: No cyanosis or edema, full range of motion of all the joints without pain or difficulty, no signs for acute trauma. NEUROLOGIC: Oriented x 3, no acute motor or sensory deficits, no focal weakness. SKIN: No rash, no jaundice, no diaphoresis. DIFFERENTIAL DIAGNOSIS: Sepsis, UTI, pneumonia, metabolic abnormality, electrolyte abnormalities, cardiac sources, cellulitis, UTI, bacteremia, intracerebral event, toxicologic etiology, neurologic event, as well as other pathologies. EMERGENCY DEPARTMENT COURSE/PROCEDURES: ECG: Indication was possible sepsis. The ECG shows a wide-complex rhythm, possibly an escape rhythm. There is a right bundle branch block pattern. The rate is 52. There is no ST elevation, no PVCs. The QTc is 435. Compared to an ECG from 15 September 2020, the rate has decreased. Sinus rhythm is no longer present. Continuous Cardiac Monitoring: An order was placed for continuous cardiac monitoring. The monitor shows a rate of 77 with normal sinus rhythm. Critical Care Note: I have personally spent 47 minutes of critical care time in the direct management of this patient. This includes bedside care, interpretation of diagnostic studies, and testing, discussion with consultants, patient, and family members, and other required patient management activities. This 47 minutes is in excess of all separately billable procedures. MEDICAL DECISION MAKING: There is a mild leukocytosis at 11, this could be consistent with infection. Patient does have a mild anemia with a hemoglobin of 10.9. Platelet count is normal. Creatinine was elevated at 1.42. This creatinine value is above her baseline and likely consistent with some dehydration. Lactic acid level was not elevated making severe sepsis less likely. No concerning liver enzyme elevatio n. Urinalysis is consistent with infection. Urine culture from yesterday showed gram-negative bacilli. Blood cultures from yesterday showed 2 of 4 with gram-negative bacilli. Covid testing was done, this was negative. The patient presents with bacteremia. This was determined by blood culture r esults from yesterday. She is in need of a hospital stay and IV antibiotic therapy. Patient was given IV saline for hydration. She received 1 L. She was given IV cefepime as antibiotic therapy. Patient understands the need for the hospital stay. I did discuss her case with the assistant case manager. The on-call hospitalist was consulted. Her blood pressure seems improved compared to when she first arrived. Past Med/Surg History Medical History Arm fracture, left LEFT FOREARM - SURGERY PLANNED FOR 01/02/21, CURRENTLY SPLINTED Chronic back pain Chronic kidney disease, stage 4 (severe) PT REPORTS KIDNEY DISEASE STAGE 4 - MONITORS...NO CURRENT OR HX DIALYSIS CKD (chronic kidney disease), stage III Depression Depression with anxiety Diabetes mellitus type 2, diet-controlled Glucose well controlled per patient > NO MEDS Dyslipidemia Esophageal stricture HX ESOPHAGEAL DILATION YRS AGO - NO ISSUES AT PRESENT Frequent UTI HX OF FREQUENT UTI'S - HX SEPSIS X 2 - NO KNOWN UTI CURRENTLY GERD (gastroesophageal reflux disease) Well controlled and stable History of kidney stones HTN (hypertension) Migraine Urinary incontinence REASON FOR UPCOMING PROCEDURE Surgical History H/O bladder repair surgery H/O repair of left rotator cuff H/O: hysterectomy History of back surgery LUMBAR X2 History of back surgery JUL 2020 , SI JOINT FUSION RIGHT History of cataract surgery BILAT History of colonoscopy History of cystoscopy bilat stents , NO STENTS CURRENT - TOTAL OF 2 (ONE UNDER ANESTHESIA AND ONE IN THE OFFICE) - MOST RECENT JUN 2020 History of esophagogastroduodenoscopy (EGD) History of hip replacement left and right History of nasal surgery History of tooth extraction Hx of fusion of cervical spine ROM IS GOOD PER PT Family History Brother Myocardial infarction, Onset Age: 46 Fatal Diabetes 4 BROTHERS WITH THIS Mother Parkinson's disease Father Multiple sclerosis Social History Smoking Status: Never smoker Second Hand Exposure: No; Hx Alcohol Use: No Hx Substance Use: No Preferred Language: Belarusian Communication Ability: Effective Interventional Neuroradiologist Required: No Beliefs That Will Affect Care: None marital status: Current Living Situation: Spouse Current Living Situation Comment: Home with spouse Other Information That Helps Us Care for You: No Feels Safe at Home: Yes Safety Concerns: Feels Safe At This Time Assistive Devices: Glasses, Hearing Aid - Bilateral, Hearing Aid - Left and Hearing Aid - Right Allergies Allergies Allergy/AdvReac Type Severity Reaction Status Date / Time duloxetine [From Cymbalta] Allergy Unknown Unknown Verified 03/10/21 15:58 pregabalin AdvReac Intermediate EDEMA FROM Verified 03/10/21 15:58 KNEES TO FEET fluticasone [From Flonase] AdvReac Mild Nausea Verified 03/10/21 15:58 Home Meds Home Medications Medication Instructions Recorded Confirmed atorvastatin 40 mg tablet (Lipitor) 40 mg PO HS 09/01/18 03/10/21 bupropion HCl 150 mg tablet,12 hr 150 mg PO BID 09/01/18 03/10/21 sustained-release (Wellbutrin SR) meloxicam 15 mg tablet (Mobic) 15 mg PO QAM 09/01/18 03/10/21 nortriptyline 25 mg capsule 50 mg PO HS 09/01/18 03/10/21 (Pamelor) omeprazole 20 mg capsule,delayed 20 mg PO QAM 09/01/18 03/10/21 release sumatriptan succinate 50 mg tablet 50 mg PO DIRECTED PRN 09/01/18 03/10/21 (Imitrex) trazodone 100 mg tablet 100 mg PO HS 09/01/18 03/10/21 verapamil 240 mg tablet,extended 240 mg PO QAM 09/01/18 03/10/21 release (Calan SR) losartan 25 mg tablet (Cozaar) 25 mg PO QAM 03/23/19 03/10/21 [id number]-dhykqntdeekna-[id number] 250 1 tab PO UD PRN 07/25/20 03/10/21 mg-250 mg-65 mg tablet (Excedrin Extra Strength) acetaminophen 500 mg tablet 500 mg PO Q6H PRN 03/09/21 03/10/21 (Tylenol Extra Strength) Previous Rx's Medication Instructions Recorded cefdinir 300 mg capsule 300 mg PO BID 10 Days #20 cap 03/09/21 Results & Data (ED) Vital Signs Vital Signs - 24 hr 03/10/21 14:40 03/10/21 16:14 03/10/21 16:17 Temperature 36.6 C Temperature Source Temporal Artery Scan Pulse Rate 60 Pulse Rate [Apical] 77 77 Pulse Rhythm [Apical] Regular Respiratory Rate 18 16 16 Respiratory Effort / Characteristics Non-Labored Respiratory Depth Normal Normal Blood Pressure 100/51 L Blood Pressure [Left Arm] 125/80 125/80 Blood Pressure Mean 67 Blood Pressure Mean [Left Arm] 95 95 Pulse Oximetry 95 98 95 Oxygen Delivery Method Room Air Room Air Room Air Sepsis Recent Fever Within 48 Hours Yes Sepsis New/Unexplained Change in Mental Status N/A Sepsis Action Taken by Nursing No Action Required Home Medications Current Medication List: was personally reviewed by me Laboratory Data Attestation: I reviewed the patient's lab results. Result diagrams: 03/10/21 16:00 03/10/21 17:02 Lab Results 03/10/21 03/10/21 03/10/21 Range/Units 16:00 16:00 16:00 WBC 11.53 H (4.8-10.8) K/uL RBC 3.99 L (4.2-5.4) M/uL Hgb 10.9 L (12.0-16.0) g/dL Hct 34.7 L (37-47) % MCV 87.0 (80-100) fL MCH 27.3 (25-34) pg MCHC 31.4 L (32-36) g/dL RDW Std Deviation 43.8 (36.4-46.3) fL RDW Coeff of Cristel 13.8 (11.5-14.5) % Plt Count 170 (130-400) K/uL MPV 10.2 (7.4-10.4) fL Immature Gran % (Auto) 0.3 % Neut % (Auto) 75.3 % Lymph % (Auto) 13.2 % [place] % (Auto) 9.0 % Eos % (Auto) 2.0 % Baso % (Auto) 0.2 % Neut # (Auto) 8.68 H (1.4-6.5) K/uL Lymph # (Auto) 1.52 (1.2-3.4) K/uL [place] # (Auto) 1.04 H (0.11-0.59) K/uL Eos # (Auto) 0.23 (0-0.5) K/uL Baso # (Auto) 0.02 (0-0.2) K/uL Immature Gran # (Auto) 0.04 H (0.00-0.02) K/uL Sodium 137 (136-145) mmol/L Potassium (3.5-5.1) mmol/L Chloride 107 (98-107) mmol/L Carbon Dioxide 27 (21-32) mmol/L Anion Gap 3.0 (3-11) BUN 20 H (7-18) mg/dl Creatinine 1.42 H (0.6-1.2) mg/dl Est Cr Clr Drug Dosing Not Reportable Est GFR ( Amer) 41.8 ml/min Est GFR (Non-Af Amer) 36.0 ml/min BUN/Creatinine Ratio 14.3 (10-20) Glucose 105 H (70-99) mg/dl Lactate (0.4-2.0) mmol/L Calcium 8.7 (8.5-10.1) mg/dl Magnesium (1.8-2.4) mg/dl Total Bilirubin 0.5 (0.2-1) mg/dl AST (15-37) U/L ALT 19 (12-78) U/L Alkaline Phosphatase 123 H (45-117) U/L Total Protein 7.0 (6.4-8.2) gm/dl Albumin 3.3 L (3.4-5.0) gm/dl Globulin 3.7 (2.5-4.0) gm/dl Albumin/Globulin Ratio 0.9 (0.9-2) Procalcitonin 8.61 H (0-0.5) ng/ml Urine Color Urine Appearance (Clear) Urine pH (4.5-7.5) Ur Specific [place] (1.000-1.030) Urine Protein (Negative) Urine Glucose (UA) (Negative) Urine Ketones (Negative) Urine Blood (Negative) Urine Nitrite (Negative) Urine Bilirubin (Negative) Urine Urobilinogen (Negative) Ur Leukocyte Esterase (Negative) Urine WBC (Auto) (0-5) /hpf Urine RBC (Auto) (0-4) /hpf U Hyaline Cast (Auto) (0-5) /lpf U Epithel Cells (Auto) (0-5) /lpf Urine Bacteria (Auto) (Negative) COVID-19 Eval Order SARS-CoV-2 (PCR) (Negative) 03/10/21 03/10/21 03/10/21 Range/Units 16:00 16:00 16:10 WBC (4.8-10.8) K/uL RBC (4.2-5.4) M/uL Hgb (12.0-16.0) g/dL Hct (37-47) % MCV (80-100) fL MCH (25-34) pg MCHC (32-36) g/dL RDW Std Deviation (36.4-46.3) fL RDW Coeff of Cristel (11.5-14.5) % Plt Count (130-400) K/uL MPV (7.4-10.4) fL Immature Gran % (Auto) % Neut % (Auto) % Lymph % (Auto) % [place] % (Auto) % Eos % (Auto) % Baso % (Auto) % Neut # (Auto) (1.4-6.5) K/uL Lymph # (Auto) (1.2-3.4) K/uL [place] # (Auto) (0.11-0.59) K/uL Eos # (Auto) (0-0.5) K/uL Baso # (Auto) (0-0.2) K/uL Immature Gran # (Auto) (0.00-0.02) K/uL Sodium (136-145) mmol/L Potassium (3.5-5.1) mmol/L Chloride (98-107) mmol/L Carbon Dioxide (21-32) mmol/L Anion Gap (3-11) BUN (7-18) mg/dl Creatinine (0.6-1.2) mg/dl Est Cr Clr Drug Dosing Est GFR ( Amer) ml/min Est GFR (Non-Af Amer) ml/min BUN/Creatinine Ratio (10-20) Glucose (70-99) mg/dl Lactate 1.6 (0.4-2.0) mmol/L Calcium (8.5-10.1) mg/dl Magnesium (1.8-2.4) mg/dl Total Bilirubin (0.2-1) mg/dl AST (15-37) U/L ALT (12-78) U/L Alkaline Phosphatase (45-117) U/L Total Protein (6.4-8.2) gm/dl Albumin (3.4-5.0) gm/dl Globulin (2.5-4.0) gm/dl Albumin/Globulin Ratio (0.9-2) Procalcitonin (0-0.5) ng/ml Urine Color Dark Yellow Urine Appearance Cloudy A (Clear) Urine pH 5.5 (4.5-7.5) Ur Specific [place] 1.018 (1.000-1.030) Urine Protein Trace H (Negative) Urine Glucose (UA) Negative (Negative) Urine Ketones Trace H (Negative) Urine Blood Trace H (Negative) Urine Nitrite Negative (Negative) Urine Bilirubin Negative (Negative) Urine Urobilinogen Negative (Negative) Ur Leukocyte Esterase 2+ H (Negative) Urine WBC (Auto) >30 H (0-5) /hpf Urine RBC (Auto) 5-10 H (0-4) /hpf U Hyaline Cast (Auto) 10-30 H (0-5) /lpf U Epithel Cells (Auto) 5-10 H (0-5) /lpf Urine Bacteria (Auto) Negative (Negative) COVID-19 Eval Order Covid19 at [facility] SARS-CoV-2 (PCR) (Negative) 03/10/21 Range/Units 16:10 WBC (4.8-10.8) K/uL RBC (4.2-5.4) M/uL Hgb (12.0-16.0) g/dL Hct (37-47) % MCV (80-100) fL MCH (25-34) pg MCHC (32-36) g/dL RDW Std Deviation (36.4-46.3) fL RDW Coeff of Cristel (11.5-14.5) % Plt Count (130-400) K/uL MPV (7.4-10.4) fL Immature Gran % (Auto) % Neut % (Auto) % Lymph % (Auto) % [place] % (Auto) % Eos % (Auto) % Baso % (Auto) % Neut # (Auto) (1.4-6.5) K/uL Lymph # (Auto) (1.2-3.4) K/uL [place] # (Auto) (0.11-0.59) K/uL Eos # (Auto) (0-0.5) K/uL Baso # (Auto) (0-0.2) K/uL Immature Gran # (Auto) (0.00-0.02) K/uL Sodium (136-145) mmol/L Potassium (3.5-5.1) mmol/L Chloride (98-107) mmol/L Carbon Dioxide (21-32) mmol/L Anion Gap (3-11) BUN (7-18) mg/dl Creatinine (0.6-1.2) mg/dl Est Cr Clr Drug Dosing Est GFR ( Amer) ml/min Est GFR (Non-Af Amer) ml/min BUN/Creatinine Ratio (10-20) Glucose (70-99) mg/dl Lactate (0.4-2.0) mmol/L Calcium (8.5-10.1) mg/dl Magnesium (1.8-2.4) mg/dl Total Bilirubin (0.2-1) mg/dl AST (15-37) U/L ALT (12-78) U/L Alkaline Phosphatase (45-117) U/L Total Protein (6.4-8.2) gm/dl Albumin (3.4-5.0) gm/dl Globulin (2.5-4.0) gm/dl Albumin/Globulin Ratio (0.9-2) Procalcitonin (0-0.5) ng/ml Urine Color Urine Appearance (Clear) Urine pH (4.5-7.5) Ur Specific [place] (1.000-1.030) Urine Protein (Negative) Urine Glucose (UA) (Negative) Urine Ketones (Negative) Urine Blood (Negative) Urine Nitrite (Negative) Urine Bilirubin (Negative) Urine Urobilinogen (Negative) Ur Leukocyte Esterase (Negative) Urine WBC (Auto) (0-5) /hpf Urine RBC (Auto) (0-4) /hpf U Hyaline Cast (Auto) (0-5) /lpf U Epithel Cells (Auto) (0-5) /lpf Urine Bacteria (Auto) (Negative) COVID-19 Eval Order SARS-CoV-2 (PCR) NEGATIVE (Negative) Administered Medications Atorvastatin Calcium (Atorvastatin 40 Mg Tab) 40 mg PO HS DELORIS Stop: 04/09/21 20:59 Last Admin: 03/10/21 21:03 Dose: 40 mg Documented by: [id number] Bupropion HCl (Bupropion Sr 150 Mg Tabcr) 150 mg PO BID DELORIS Stop: 04/09/21 20:59 Last Admin: 03/10/21 21:03 Dose: 150 mg Documented by: [id number] Heparin Sodium (Porcine) (Heparin Sod 5,000 Unit/0.5 Ml Vial) 5,000 units SQ Q8 DELORIS Stop: 04/09/21 21:59 Last Admin: 03/10/21 21:04 Dose: Not Given Documented by: [id number] Sodium Chloride (Nss 1000ml) 1,000 mls @ 80 mls/hr IV .[id number] DELORIS Stop: 03/11/21 07:26 Last Admin: 03/10/21 19:30 Dose: 80 mls/hr Documented by: [id number] Aztreonam 2,000 mg/ Dextrose 110 mls @ 100 mls/hr IV Q8H DELORIS; Protocol Stop: 03/24/21 20:29 Last Infusion: 03/10/21 22:24 Dose: 0 mls/hr Documented by: [id number] Admin: 03/10/21 21:04 Dose: 100 mls/hr Documented by: [id number] Nortriptyline HCl (Nortriptyline Hcl 25 Mg Cap) 50 mg PO DELORIS Stop: 04/09/21 20:59 Last Admin: 03/10/21 21:03 Dose: 50 mg Documented by: [id number] Trazodone HCl (Trazodone Hcl 100 Mg Tab) 100 mg PO HS DELORIS Stop: 04/09/21 20:59 Last Admin: 03/10/21 21:04 Dose: 100 mg Documented by: [id number] Discontinued Medications Diphenhydramine HCl (Diphenhydramine Capsule 25 Mg Cap) 25 mg PO NOW ONE Stop: 03/10/21 20:23 Last Admin: 03/10/21 21:02 Dose: 25 mg Documented by: [id number] Sodium Chloride (Nss 1000ml) 1,000 mls @ 999 mls/hr IV .[id number] DELORIS Stop: 03/10/21 17:00 Last Infusion: 03/10/21 19:00 Dose: 0 mls/hr Documented by: [id number] Admin: 03/10/21 16:34 Dose: 999 mls/hr Documented by: [id number] Cefepime HCl (Maxipime) 2,000 mg in 20 mls @ 5 mls/min IV NOW STA; Protocol Stop: 03/10/21 15:56 Last Admin: 03/10/21 16:33 Dose: 5 mls/min Documented by: [id number] Discharge Plan Visit Data Chief Complaint: Infection Stated Complaint: UTI, SEPTIC ED Provider: Barry Peralta Discharge Problem: Bacteremia, Acute UTI, Chills, Positive blood culture Patient Disposition: Admitted As Inpatient Condition: Fair Discharge Instructions Interventions: ED Discharge Assessment Last Done: 03/10/21 18:24
[2021-03-10 16:15] LABS: Basophils # (auto) 0.02 K/uL (0-0.2); Basophils % (auto) 0.2 %; Eosinophils # (auto) 0.23 K/uL (0-0.5); Hematocrit (blood only) 34.7 % (37-47); Hemoglobin 10.9 g/dL (12.0-16.0); Immature Granulocytes # (auto) 0.04 K/uL (0.00-0.02); Immature Granulocytes % (auto) 0.3 %; Lymphocytes # (auto) 1.52 K/uL (1.2-3.4); Lymphocytes % (auto) 13.2 %; Mean Corpuscular Hemoglobin 27.3 pg (25-34); Mean Corpuscular Hgb Conc 31.4 g/dL (32-36); Mean Platelet Volume 10.2 fL (7.4-10.4); Monocytes # (auto) 1.04 K/uL (0.11-0.59); Neutrophils # (auto) 8.68 K/uL (1.4-6.5); Neutrophils % (auto) 75.3 %; Platelet Count 170 K/uL (130-400); RDW Coefficient of Variation 13.8 % (11.5-14.5); RDW Standard Deviation 43.8 fL (36.4-46.3); Red Blood Count 3.99 M/uL (4.2-5.4); White Blood Count 11.53 K/uL (4.8-10.8)
--- NOTE | 2021-03-10 16:29 | History & Physical Report ---
Date of Service March 10, 2021 Assessment & Plan (1) Bacteremia: (2) UTI (urinary tract infection): Plan: Patient is 75-year-old female with PMH recurrent UTI, urinary incontinence, DM II, HTN, dyslipidemia, CKD III, chronic anemia, anxiety, depression and others below returned to ER for positive blood cultures from yesterday. Patient was seen in ER yesterday for chills, nausea. Was found to have WBC of 14, UA suggestive of UTI. Patient was given Rocephin, IV fluids and was discharged on cefdinir. Today preliminary blood cultures positive for gram-negative bacilli, preliminary urine culture positive for gram-negative bacilli. In ER patient afebrile, vitals stable. WBC: 11, lactate: WNL. In ER given 1L NSS, cefepime Repeat blood cultures pending Urine culture pending Gentle IVF Continue cefepime Urology consult Obtain renal ultrasound secondary to UTI and renal insufficiency CBC, BMP in a.m. (3) CKD (chronic kidney disease), stage III: Plan: Cr: 1.4. Baseline Cr: 1-1.2 Monitor renal functions, avoid nephrotoxic agents when possible (4) HTN (hypertension): Plan: Continue losartan, verapamil (5) Dyslipidemia: Plan: Continue atorvastatin (6) Depression with anxiety: Plan: Continue Wellbutrin DVT Prophylaxis -Heparin SQ Full code as per discussion with pt Follows with Dr Josseline Sosa for routine care Pt was seen and care coordinated with Dr Castillo. See addendum History of Present Illness Chief Complaint: Call to return to ER for positive blood cultures Primary Care Provider: Josseline Sosa, Patient is 75-year-old female with PMH recurrent UTI, urinary incontinence, DM II, HTN, dyslipidemia, CKD III, chronic anemia, anxiety, depression and others below returned to ER for positive blood cultures from yesterday. Patient was seen in ER yesterday for chills, nausea. Was found to have WBC of 14, UA suggestive of UTI. Patient was given Rocephin, IV fluids and was discharged on cefdinir. Today preliminary blood cultures positive for gram-negative bacilli, preliminary urine culture positive for gram-negative bacilli. Today patient states still with chills and general malaise. Denies vomiting, known fever. Patient follows with urology-Dr. Valdez. Denies fever/chills, diaphoresis, N/V /D/C, CRAIN, dizziness, syncope, vision changes, neck pain, CP, SOB, orthopnea, palpitations, cough, sore throat, choking, otalgia, rhinorrhea, abdominal pain, paresthesias, weakness, extremity weakness, extremity edema, rashes, urinary symptoms. In ER patient afebrile, vitals stable. WBC: 11, lactate: WNL. Was given 1L NSS, cefepime. Patient being admitted for further treatment and evaluation. Allergies Allergy/AdvReac Type Severity Reaction Status Date / Time duloxetine [From Cymbalta] Allergy Unknown Unknown Verified 03/10/21 15:58 pregabalin AdvReac Intermediate EDEMA FROM Verified 03/10/21 15:58 KNEES TO FEET fluticasone [From Flonase] AdvReac Mild Nausea Verified 03/10/21 15:58 Home Medications Medication Instructions Recorded Confirmed Type atorvastatin 40 mg tablet (Lipitor) 40 mg PO HS 09/01/18 03/10/21 History bupropion HCl 150 mg tablet,12 hr 150 mg PO BID 09/01/18 03/10/21 History sustained-release (Wellbutrin SR) meloxicam 15 mg tablet (Mobic) 15 mg PO QAM 09/01/18 03/10/21 History nortriptyline 25 mg capsule 50 mg PO HS 09/01/18 03/10/21 History (Pamelor) omeprazole 20 mg capsule,delayed 20 mg PO QAM 09/01/18 03/10/21 History release sumatriptan succinate 50 mg tablet 50 mg PO DIRECTED PRN 09/01/18 03/10/21 History (Imitrex) trazodone 100 mg tablet 100 mg PO HS 09/01/18 03/10/21 History verapamil 240 mg tablet,extended 240 mg PO QAM 09/01/18 03/10/21 History release (Calan SR) losartan 25 mg tablet (Cozaar) 25 mg PO QAM 03/23/19 03/10/21 History olaeqje-dlmdbckcxpzld-gmfuyrwx 250 1 tab PO UD PRN 07/25/20 03/10/21 History mg-250 mg-65 mg tablet (Excedrin Extra Strength) acetaminophen 500 mg tablet 500 mg PO Q6H PRN 03/09/21 03/10/21 History (Tylenol Extra Strength) cefdinir 300 mg capsule 300 mg PO BID 10 Days #20 cap 03/09/21 03/10/21 Rx Past Med/Surg History Medical History Arm fracture, left LEFT FOREARM - SURGERY PLANNED FOR 01/02/21, CURRENTLY SPLINTED Chronic back pain Chronic kidney disease, stage 4 (severe) PT REPORTS KIDNEY DISEASE STAGE 4 - MONITORS...NO CURRENT OR HX DIALYSIS CKD (chronic kidney disease), stage III Depression Depression with anxiety Diabetes mellitus type 2, diet-controlled Glucose well controlled per patient > NO MEDS Dyslipidemia Esophageal stricture HX ESOPHAGEAL DILATION YRS AGO - NO ISSUES AT PRESENT Frequent UTI HX OF FREQUENT UTI'S - HX SEPSIS X 2 - NO KNOWN UTI CURRENTLY GERD (gastroesophageal reflux disease) Well controlled and stable History of kidney stones HTN (hypertension) Migraine Urinary incontinence REASON FOR UPCOMING PROCEDURE Surgical History H/O bladder repair surgery H/O repair of left rotator cuff H/O: hysterectomy History of back surgery LUMBAR X2 History of back surgery JUL 2020 , SI JOINT FUSION RIGHT History of cataract surgery BILAT History of colonoscopy History of cystoscopy bilat stents , NO STENTS CURRENT - TOTAL OF 2 (ONE UNDER ANESTHESIA AND ONE IN THE OFFICE) - MOST RECENT JUN 2020 History of esophagogastroduodenoscopy (EGD) History of hip replacement left and right History of nasal surgery History of tooth extraction Hx of fusion of cervical spine ROM IS GOOD PER PT Family History Brother Myocardial infarction, Onset Age: 46 Fatal Diabetes 4 BROTHERS WITH THIS Mother Parkinson's disease Father Multiple sclerosis Social History Smoking Status: Never smoker Second Hand Exposure: No; Hx Alcohol Use: No Hx Substance Use: No Preferred Language: Puerto Rican Communication Ability: Effective 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 Beliefs That Will Affect Care: None marital status: Current Living Situation: Spouse Current Living Situation Comment: Home with spouse Other Information That Helps Us Care for You: No Feels Safe at Home: Yes Safety Concerns: Feels Safe At This Time Assistive Devices: None Review of Systems Review of Systems: All systems reviewed & are unremarkable except as noted in HPI & below Physical Exam Physical Exam: General: no distress, WDWN Head: normocephalic, atraumatic Eyes: PERRL, EOM's intact, conjunctiva non-injected, anicteric ENT: normal inspection external ears, nose, mucous membranes moist Neck: supple, trachea midline Lungs: clear, no respiratory distress, no wheezing/rhonchi/rales CV: RRR, no murmur, no pretibial edema Abd: normal BS, soft, non-tender, no CVA tenderness to palpation Ext: no cyanosis, no calf tenderness Neuro: A&O x 3, no focal deficits noted, normal affect Skin: warm, dry Results & Data Results & Data ([facility]) Vital Signs (Past 12 Hours) Vital Signs Temp Pulse Pulse Resp BP BP Pulse Ox 03/10/21 16:17 77 16 125/80 95 03/10/21 16:14 77 16 125/80 98 03/10/21 14:40 36.6 C 60 18 100/51 L 95 Laboratory Results Short CBC 03/10/21 Range/Units 16:00 WBC 11.53 H (4.8-10.8) K/uL Hgb 10.9 L (12.0-16.0) g/dL Hct 34.7 L (37-47) % Plt Count 170 (130-400) K/uL BMP 03/10/21 03/10/21 16:00 17:02 Sodium 137 Potassium 4.5 Chloride 107 Carbon Dioxide 27 BUN 20 H Creatinine 1.42 H Glucose 105 H Calcium 8.7 Liver Function 03/10/21 03/10/21 Range/Units 16:00 17:02 Total Bilirubin 0.5 (0.2-1) mg/dl AST 12 L (15-37) U/L ALT 19 (12-78) U/L Alkaline Phosphatase 123 H (45-117) U/L Albumin 3.3 L (3.4-5.0) gm/dl Supervising Physician Co-Signing Physician Notes Attending addendum: The patient was seen and examined in emergency room in presence of the She was in the ER on fourth of this month with UTI and was sent home on antibiotic She was called in with positive blood culture She has urinary incontinence with infection Denies any other significant symptoms On examination Lying in bed without any distress Hemodynamically stable Chestclear to auscultate bilaterally HeartS1-S2 regular Abdomenbenign, nontender hypogastrium and renal angles Extremities trace edema bilaterally Her admission labs and imaging studies reviewed Has recurrent UTI with urinary incontinence We will continue cefepime for now and await culture and sensitivity We will get urology evaluation while she is in the hospital as there is a scheduled for tomorrow 03/12/2021 Agree with assessment and plan as outlined above by KAYE Hodge DR (1) UTI (urinary tract infection) Hematuria presence: without hematuria Urinary tract infection type: acute cystitis Qualified Code(s): N30.00 - Acute cystitis without hematuria
[2021-03-10 16:42] LABS: Alanine Aminotransferase 19 U/L (12-78); Albumin Globulin Ratio 0.9 (0.9-2); Albumin Level 3.3 gm/dl (3.4-5.0); Alkaline Phosphatase 123 U/L (45-117); BUN Creatinine Ratio 14.3 (10-20); Bilirubin,Total 0.5 mg/dl (0.2-1); Blood Urea Nitrogen 20 mg/dl (7-18); Calcium 8.7 mg/dl (8.5-10.1); Carbon Dioxide 27 mmol/L (21-32); Chloride 107 mmol/L (98-107); Est GFR (African American) 41.8 ml/min; Globulin 3.7 gm/dl (2.5-4.0); Glucose 105 mg/dl (70-99)
[2021-03-10 16:49] LABS: Sodium 137 mmol/L (136-145)
[2021-03-10 17:35] LABS: Potassium 4.5 mmol/L (3.5-5.1)
[2021-03-10 17:41] LABS: Magnesium 2.4 mg/dl (1.8-2.4)
[2021-03-10] MEDS ORDERED: POLYETHYLENE (MIRALAX) 17 GM PACK PO PRN (18:57)
[2021-03-10] MEDS ORDERED: ACETAMINOPHEN 325 MG TAB PO PRN (18:57)
[2021-03-10] MEDS ORDERED: ONDANSETRON INJ 2 MG/ML 2 ML VIAL IV PRN (18:57)
[2021-03-10 19:37] LABS: Appearance Urine Cloudy (Clear); Bacteria Urine Automated Negative (Negative); Bilirubin Urine Negative (Negative); Blood Urine Trace (Negative); Color Urine Dark Yellow; Glucose Urine UA Negative (Negative); Ketones Urine Trace (Negative); Leukocyte Esterase Urine 2+ (Negative); Nitrite Urine Negative (Negative); Protein Urine Trace (Negative); Specific Gravity Urine 1.018 (1.000-1.030); Urobilinogen Urine Negative (Negative); WBC Urine Automated >30 /hpf (0-5); pH Urine 5.5 (4.5-7.5)
[2021-03-10] MEDS ORDERED: diphenhydrAMINE Capsule 25 MG CAP PO ONE (20:22)
[2021-03-10] MEDS ORDERED: AZTREONAM CONSULT ACTIVE PRN (20:26)
[2021-03-10] MEDS: ATORVASTATIN 40 MG TAB PO SCH (21:03)
[2021-03-10] MEDS: buPROPion SR 150 MG TABCR PO SCH (21:03)
[2021-03-10] MEDS: NORTRIPTYLINE HCL 25 MG CAP PO SCH (21:03)
[2021-03-10] MEDS: HEPARIN SOD 5,000 UNIT/0.5 ML VIAL SQ SCH (21:04)
[2021-03-10] MEDS: AZTREONAM 2,000 MG in DEXTROSE 5% 100 ML IV SCH (21:04)
[2021-03-10] MEDS: traZODone HCL 100 MG TAB PO SCH (21:04)
[2021-03-11] MEDS ORDERED: IBUPROFEN 200 MG TAB PO STA (00:51)
[2021-03-11] MEDS ORDERED: CEFEPIME 2,000 MG in SYRINGE 0 ML IV SCH (04:00)
[2021-03-11] MEDS: AZTREONAM 2,000 MG in DEXTROSE 5% 100 ML IV SCH ×3 (05:01→19:43)
[2021-03-11] MEDS: HEPARIN SOD 5,000 UNIT/0.5 ML VIAL SQ SCH ×3 (05:34→20:00)
[2021-03-11] MEDS: VERAPAMIL HCL 240 MG TABCR PO SCH (07:29)
[2021-03-11] MEDS: LOSARTAN POTASSIUM 25 MG TAB PO SCH (07:29)
[2021-03-11] MEDS: buPROPion SR 150 MG TABCR PO SCH ×2 (07:30→20:00)
[2021-03-11] MEDS: PANTOprazole 40 MG TAB PO SCH (07:30)
[2021-03-11 07:34] LABS: Basophils # (auto) 0.01 K/uL (0-0.2); Basophils % (auto) 0.2 %; Eosinophils # (auto) 0.17 K/uL (0-0.5); Eosinophils % (auto) 2.6 %; Hematocrit (blood only) 30.2 % (37-47); Hemoglobin 9.4 g/dL (12.0-16.0); Immature Granulocytes # (auto) 0.01 K/uL (0.00-0.02); Immature Granulocytes % (auto) 0.2 %; Lymphocytes # (auto) 0.95 K/uL (1.2-3.4); Lymphocytes % (auto) 14.3 %; Mean Corpuscular Hemoglobin 26.8 pg (25-34); Mean Corpuscular Hgb Conc 31.1 g/dL (32-36); Mean Platelet Volume 9.9 fL (7.4-10.4); Monocytes # (auto) 0.67 K/uL (0.11-0.59); Monocytes % (auto) 10.1 %; Neutrophils # (auto) 4.85 K/uL (1.4-6.5); Neutrophils % (auto) 72.6 %; Platelet Count 118 K/uL (130-400); RDW Coefficient of Variation 13.9 % (11.5-14.5); RDW Standard Deviation 43.9 fL (36.4-46.3); Red Blood Count 3.51 M/uL (4.2-5.4); White Blood Count 6.66 K/uL (4.8-10.8)
[2021-03-11 07:52] LABS: BUN Creatinine Ratio 14.4 (10-20); Creatinine Clr Calc Pharmacy 42.8 ml/min; Est GFR (African American) 55.6 ml/min
--- NOTE | 2021-03-11 08:49 | Electrocardiogram Report ---
Test Reason : Blood Pressure : / mmHG Vent. Rate : 052 BPM Atrial Rate : 144 BPM P-R Int : 000 ms QRS Dur : 134 ms QT Int : 468 ms P-R-T Axes : 000 029 008 degrees QTc Int : 435 ms Junctional bradycardia Right bundle branch block Abnormal ECG When compared with ECG of 15-SEP-2020 19:33, Junctional bradycardia has replaced Sinus rhythm Vent. rate has decreased BY 32 BPM Confirmed by Lyle Diaz ([id number]) on 03/11/2021 8:49:23 AM Referred By: REFERRED SELF Confirmed By:Lyle Diaz
--- NOTE | 2021-03-11 09:59 | Ultrasound Report ---
ULTRASOUND KIDNEYS AND BLADDER CLINICAL HISTORY: Urinary tract infection. Renal insufficiency. COMPARISON STUDY: Abdominal CT dated 06/03/2020. Renal ultrasound dated 08/11/2020. TECHNIQUE: Real-time, grayscale, and color flow sonography of the kidneys and bladder is performed. I mages are reviewed in the transverse and longitudinal planes. FINDINGS: Kidneys: The kidneys demonstrate cortical atrophy. Echotexture is normal. The right kidney measures 9 .9 cm in length and the left kidney measures 10.2 cm. There is an external pelvis and mild right-side d hydronephrosis. No left-sided hydronephrosis is identified. No shadowing renal calculi are identifi ed. There is no sonographic evidence of contour deforming renal mass lesion. No perinephric fluid is identified. Bladder: The partially distended bladder is normal in appearance. Bilateral ureteral jets were seen. IMPRESSION: 1. The kidneys demonstrate cortical atrophy. 2. There is an external pelvis on the right with mild right-sided hydronephrosis. This is similar to the 06/03/[address] scan. Correlate with clinical findings and urinalysis. 3. There is no left-sided hydronephrosis. 4. The bladder is normal as visualized with bilateral ureteral jets identified. ACT 112: Negative or not required by law. Electronically signed by: Barry Bailon M.D. 03/11/2021 9:58 AM
--- NOTE | 2021-03-11 10:35 | Urology Consultation ---
Date of Consultation March 11, 2021 Assessment & Plan (1) Bacteremia: (2) Incontinence: (3) Hematuria: Well-known patient to the urology service. Admitted with bacteremia. Being treated with broad-spectrum antibiotics and supportive care. Agree with plans for continued hydration and supportive care. Patient has a complicated set of urologic concerns and issues. Had initially presented with severe obstruction due to severe urethral strictures. Was subsequently dilated and had improved for period time. Then developed a severe decrease in capacity with poor overall volume and control. Patient has now severe incontinence issues and bother. Was being trialed on a combination of medications. Has not completely resolved. Had discussed previously with patient possible referral to a reconstruction urologist to further assess due to severity of the patient's issues. Vitals are stable. Patient has not been febrile. Blood pressure and pulse are all within normal limits. Patient is being monitored through with labs. Are waiting the full culture results with sensitivities. Patient has noticed some improvement on the anticholinergic and Gemtesa dual therapy. Is interested in continuing this therapy. We will send note to our office to set up follow-up as well as we will also set up referral to [facility] for female incontinence/reconstruction urologist Patient complicated medical and surgical history is reviewed and summarized above. All previous imaging has been reviewed. Patient's recent cultures were assessed and found to be a largely pansensitive E. coli species. Would recommend transitioning to oral antibiotics likely a fluoroquinolone for outpatient management of pyelonephritis/bacteremia once patient is stable to be discharged History of Present Illness Attending Physician: María Castillo MD History of Present Illness New consultation for patient with UTI/Pyelo, discomfort, and ill feelings. Patient developed sudden onset of pain into flank going down and radiating into groin and back in waves comes and goes. Can be severe at times. Well-known patient with the urology service. Patient had been dealing with considerable issues from urethral stricture. Had considerable obstructive problems and concerns leading to major incontinence. Since patient had undergone dilation and had improved from an emptying standpoint. Over the subsequent months, patient has developed significant decrease in capacity and volume for bladder. Has worsening now with incontinence and poor control. Has had major issues and concerns. Was trialed on medication and was currently trialing a course of anticholinergic and beta 3 agonist. Patient is being treated with antibiotics and supportive care. Has not undergone repeat imaging or assessment. Had initially been seen in the ER the day prior. Had undergone culture and found to have positive blood cultures which prompted the admission to the hospital. Awaiting culture results Discussed and reviewed patient's family history for any history of issues, infections, and disease. Also, discussed patient's medical/surgery history especially related to any history of urinary issues or stone disease. Patient was admitted and is undergoing observation with broad spectrum IV antibiotics. Allergies Allergy/AdvReac Type Severity Reaction Status Date / Time duloxetine [From Cymbalta] Allergy Unknown Unknown Verified 03/10/21 15:58 pregabalin AdvReac Intermediate EDEMA FROM Verified 03/10/21 15:58 KNEES TO FEET fluticasone [From Flonase] AdvReac Mild Nausea Verified 03/10/21 15:58 Home Medications Medication Instructions Recorded Confirmed Type atorvastatin 40 mg tablet (Lipitor) 40 mg PO HS 09/01/18 03/10/21 History bupropion HCl 150 mg tablet,12 hr 150 mg PO BID 09/01/18 03/10/21 History sustained-release (Wellbutrin SR) meloxicam 15 mg tablet (Mobic) 15 mg PO QAM 09/01/18 03/10/21 History nortriptyline 25 mg capsule 50 mg PO HS 09/01/18 03/10/21 History (Pamelor) omeprazole 20 mg capsule,delayed 20 mg PO QAM 09/01/18 03/10/21 History release sumatriptan succinate 50 mg tablet 50 mg PO DIRECTED PRN 09/01/18 03/10/21 History (Imitrex) trazodone 100 mg tablet 100 mg PO HS 09/01/18 03/10/21 History verapamil 240 mg tablet,extended 240 mg PO QAM 09/01/18 03/10/21 History release (Calan SR) losartan 25 mg tablet (Cozaar) 25 mg PO QAM 03/23/19 03/10/21 History ghocrtj-zslvhqqtmvqlk-gjtekuir 250 1 tab PO UD PRN 07/25/20 03/10/21 History mg-250 mg-65 mg tablet (Excedrin Extra Strength) acetaminophen 500 mg tablet 500 mg PO Q6H PRN 03/09/21 03/10/21 History (Tylenol Extra Strength) cefdinir 300 mg capsule 300 mg PO BID 10 Days #20 cap 03/09/21 03/10/21 Rx Patient History Medical History Arm fracture, left LEFT FOREARM - SURGERY PLANNED FOR 01/02/21, CURRENTLY SPLINTED Chronic back pain Chronic kidney disease, stage 4 (severe) PT REPORTS KIDNEY DISEASE STAGE 4 - MONITORS...NO CURRENT OR HX DIALYSIS CKD (chronic kidney disease), stage III Depression Depression with anxiety Diabetes mellitus type 2, diet-controlled Glucose well controlled per patient > NO MEDS Dyslipidemia Esophageal stricture HX ESOPHAGEAL DILATION YRS AGO - NO ISSUES AT PRESENT Frequent UTI HX OF FREQUENT UTI'S - HX SEPSIS X 2 - NO KNOWN UTI CURRENTLY GERD (gastroesophageal reflux disease) Well controlled and stable History of kidney stones HTN (hypertension) Migraine Urinary incontinence REASON FOR UPCOMING PROCEDURE Surgical History H/O bladder repair surgery H/O repair of left rotator cuff H/O: hysterectomy History of back surgery LUMBAR X2 History of back surgery JUL 2020 , SI JOINT FUSION RIGHT History of cataract surgery BILAT History of colonoscopy History of cystoscopy bilat stents , NO STENTS CURRENT - TOTAL OF 2 (ONE UNDER ANESTHESIA AND ONE IN THE OFFICE) - MOST RECENT JUN 2020 History of esophagogastroduodenoscopy (EGD) History of hip replacement left and right History of nasal surgery History of tooth extraction Hx of fusion of cervical spine ROM IS GOOD PER PT Family History Brother Myocardial infarction, Onset Age: 46 Fatal Diabetes 4 BROTHERS WITH THIS Mother Parkinson's disease Father Multiple sclerosis Social History Smoking Status: Never smoker Second Hand Exposure: No; Hx Alcohol Use: No Hx Substance Use: No Preferred Language: Argentine Communication Ability: Effective 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 Advanced age HEENT: Normocephalic Atraumatic. Inspection normal. Cranial Nerves 2-12 Grossly intact. Nares are clear. Neck is supple. Normal inspection of face. Normal inspection of neck. Neurologic: No deficits on inspection. Baseline for motor function and sensory. Psychologic: Normal affect. Respiratory: Nonlabored. No use of accessory muscles. No tachypnea or dyspnea. Cardiovascular: No tachycardia Skin: [place] and Dry. No rashes or visible lesions. Extremities: Moving without issues. No motor deficits on inspection Lymphatics: No edema Abdomen: Soft Non-distended. No rebound or guarding. Results & Data ([facility]) Vital Signs (Past 12 Hours) Vital Signs Temp Pulse Pulse Resp BP BP Pulse Ox 03/11/21 07:39 36.5 C 72 16 136/69 95 03/11/21 03:30 36.9 C 76 20 112/54 L 94 03/11/21 00:22 70 03/10/21 23:26 37.6 C H 03/10/21 22:46 37.8 C H 68 20 133/55 L 93 03/10/21 22:45 65 PG Care Time/CCT Total # of Minutes Spent Total Time Spent with Patient: Total time spent is greater than 50% in coordination of care (as documented) at patient's floor/unit and/or counseling patient: Coding Level of Care Code 56906 Inpt Consult Level 5 Diagnoses Bacteremia R78.81 Incontinence R32 Hematuria R31.9 Hematuria type: unspecified type (1) Hematuria Hematuria type: unspecified type Qualified Code(s): R31.9 - Hematuria, unspecified
--- NOTE | 2021-03-11 13:39 | Hospitalist Progress Note ---
Date of Service March 11, 2021 Assessment & Plan (1) Bacteremia: Plan: E. coli bacteremia secondary to E. coli UTI Pansensitive Await repeat blood culture (2) UTI (urinary tract infection): Plan: Patient is 75-year-old female with PMH recurrent UTI, urinary incontinence, DM II, HTN, dyslipidemia, CKD III, chronic anemia, anxiety, depression and others below returned to ER for positive blood cultures from yesterday. Patient was seen in ER yesterday for chills, nausea. Was found to have WBC of 14, UA suggestive of UTI. Patient was given Rocephin, IV fluids and was discharged on cefdinir. Today preliminary blood cultures positive for gram-negative bacilli, preliminary urine culture positive for gram-negative bacilli. In ER patient afebrile, vitals stable. WBC: 11, lactate: WNL. In ER given 1L NSS, cefepime Repeat blood cultures pending Urine culture pending-so far negative Gentle IVF Continue cefepime Appreciate urology input and recommendation Obtain renal ultrasound secondary to UTI and renal insufficiency Clinically much better Plan to start oral ciprofloxacin on discharge to finish the course of 14 days Urinary incontinence Has been going on since cystoscopy done sometime last year Awaiting further evaluation by a specialist in [facility] which will be recommended by the urologist (3) CKD (chronic kidney disease), stage III: Plan: Cr: 1.4. Baseline Cr: 1-1.2 Monitor renal functions, avoid nephrotoxic agents when possible Creatinine remains normal (4) HTN (hypertension): Plan: Continue losartan, verapamil (5) Dyslipidemia: Plan: Continue atorvastatin (6) Depression with anxiety: Plan: Continue Wellbutrin DVT Prophylaxis -Heparin SQ Full code as per discussion with pt Follows with Dr Josseline Sosa for routine care Admission and Anticipated Discharge Date Admission Date: March 10, 2021 Subjective 03/11/2021 The patient was seen and examined in medical telemetry unit She has been stable and denies any symptoms No urinary symptoms and no fever and no chills Review of Systems Review of Systems: All systems reviewed and are unremarkable except as noted below Physical Exam Physical Exam: Lying in bed comfortably Constitutional: well developed, well nourished and + obese; not ill appearing Eyes: PERRL, conjunctivae normal, anicteric sclerae ENMT: external ear and nose normal, oropharynx normal Neck: trachea midline, no thyromegaly Respiratory: normal respiratory effort, lungs clear to auscultation Cardiovascular: Rate/Rhythm: regular rate and regular rhythm; not tachycardic Heart Sounds: normal S1 and normal S2; no murmur Extremities: + edema (Trace edema bilaterally) Gastrointestinal (Abdomen): normal bowel sounds, soft, nontender, no he patosplenomegaly Musculoskeletal: No acute arthritis in any joint Neurologic: Alert, awake and oriented x3. No focal sensory and motor deficit appreciated Lymphatic: no cervical or axillary lymphadenopathy Results & Data Results & Data ([facility]) Vital Signs (Past 12 Hours) Vital Signs Temp Pulse Resp BP Pulse Ox 03/11/21 11:18 36.6 C 65 16 114/57 L 97 03/11/21 07:39 36.5 C 72 16 136/69 95 03/11/21 03:30 36.9 C 76 20 112/54 L 94 Laboratory Results Short CBC 03/10/21 03/11/21 Range/Units 16:00 07:02 WBC 11.53 H 6.66 (4.8-10.8) K/uL Hgb 10.9 L 9.4 L (12.0-16.0) g/dL Hct 34.7 L 30.2 L (37-47) % Plt Count 170 118 L (130-400) K/uL BMP 03/10/21 03/10/21 03/11/21 16:00 17:02 07:02 Sodium 137 140 Potassium 4.5 4.0 Chloride 107 113 H Carbon Dioxide 27 22 BUN 20 H 16 Creatinine 1.42 H 1.12 D Glucose 105 H 115 H Calcium 8.7 8.0 L Liver Function 03/10/21 03/10/21 Range/Units 16:00 17:02 Total Bilirubin 0.5 (0.2-1) mg/dl AST 12 L (15-37) U/L ALT 19 (12-78) U/L Alkaline Phosphatase 123 H (45-117) U/L Albumin 3.3 L (3.4-5.0) gm/dl Urine 03/10/21 Range/Units 16:00 Urine Color Dark Yellow Urine Appearance Cloudy A (Clear) Urine pH 5.5 (4.5-7.5) Ur Specific [place] 1.018 (1.000-1.030) Urine Protein Trace H (Negative) Urine Glucose (UA) Negative (Negative) Medications Administered Current Inpatient Medications Acetaminophen (Acetaminophen 325 Mg Tab) 650 mg PO Q4H PRN PRN Reason: Pain or Fever Stop: 04/09/21 18:56 Last Admin: 03/10/21 22:26 Dose: 650 mg Documented by: Atorvastatin Calcium (Atorvastatin 40 Mg Tab) 40 mg PO HS [facility] Stop: 04/09/21 20:59 Last Admin: 03/10/21 21:03 Dose: 40 mg Documented by: Aztreonam (Aztreonam Consult Active) 1 ea N/A UD PRN PRN Reason: Consult Stop: 04/09/21 20:25 Bupropion HCl (Bupropion Sr 150 Mg Tabcr) 150 mg PO BID [facility] Stop: 04/09/21 20:59 Last Admin: 03/11/21 07:30 Dose: 150 mg Documented by: Heparin Sodium (Porcine) (Heparin Sod 5,000 Unit/0.5 Ml Vial) 5,000 units SQ Q8 [facility] Stop: 04/09/21 21:59 Last Admin: 03/11/21 13:26 Dose: 5,000 units Documented by: Aztreonam 2,000 mg/ Dextrose 110 mls @ 100 mls/hr IV Q8H [facility]; Protocol Stop: 03/24/21 20:29 Last Admin: 03/11/21 12:26 Dose: 100 mls/hr Documented by: Losartan Potassium (Losartan Potassium 25 Mg Tab) 25 mg PO QAM [facility] Stop: 04/10/21 08:59 Last Admin: 03/11/21 07:29 Dose: 25 mg Documented by: Nortriptyline HCl (Nortriptyline Hcl 25 Mg Cap) [address] [facility] Stop: 04/09/21 20:59 Last Admin: 03/10/21 21:03 Dose: 50 mg Documented by: Ondansetron HCl (Ondansetron Inj 2 Mg/Ml 2 Ml Vial) 4 mg IV Q6H PRN PRN Reason: Nausea Stop: 04/09/21 18:56 Pantoprazole Sodium (Pantoprazole 40 Mg Tab) 40 mg PO QAM [facility] Stop: 04/10/21 08:59 Last Admin: 03/11/21 07:30 Dose: 40 mg Documented by: Polyethylene Glycol (Polyethylene (Miralax) 17 Gm Pack) 17 gm PO DAILY PRN PRN Reason: Constipation Stop: 04/09/21 18:56 Trazodone HCl (Trazodone Hcl 100 Mg Tab) 100 mg PO HS [facility] Stop: 04/09/21 20:59 Last Admin: 03/10/21 21:04 Dose: 100 mg Documented by: Verapamil HCl (Verapamil Hcl 240 Mg Tabcr) 240 mg PO QAM [facility] Stop: 04/10/21 08:59 Last Admin: 03/11/21 07:29 Dose: 240 mg Documented by: (1) UTI (urinary tract infection) Hematuria presence: without hematuria Urinary tract infection type: acute cystitis Qualified Code(s): N30.00 - Acute cystitis without hematuria
[2021-03-11] MEDS: traZODone HCL 100 MG TAB PO SCH (19:59)
[2021-03-11] MEDS: NORTRIPTYLINE HCL 25 MG CAP PO SCH (19:59)
[2021-03-11] MEDS: ATORVASTATIN 40 MG TAB PO SCH (20:00)
[2021-03-12] MEDS: AZTREONAM 2,000 MG in DEXTROSE 5% 100 ML IV SCH (05:16)
[2021-03-12] MEDS: HEPARIN SOD 5,000 UNIT/0.5 ML VIAL SQ SCH ×2 (05:17→14:49)
[2021-03-12 06:15] LABS: Basophils # (auto) 0.02 K/uL (0-0.2); Basophils % (auto) 0.3 %; Eosinophils # (auto) 0.17 K/uL (0-0.5); Eosinophils % (auto) 2.7 %; Hematocrit (blood only) 29.9 % (37-47); Hemoglobin 9.5 g/dL (12.0-16.0); Immature Granulocytes # (auto) 0.03 K/uL (0.00-0.02); Immature Granulocytes % (auto) 0.5 %; Lymphocytes # (auto) 1.19 K/uL (1.2-3.4); Lymphocytes % (auto) 19.1 %; Mean Corpuscular Hemoglobin 27.3 pg (25-34); Mean Corpuscular Hgb Conc 31.8 g/dL (32-36); Mean Corpuscular Volume 85.9 fL (80-100); Mean Platelet Volume 9.7 fL (7.4-10.4); Monocytes # (auto) 0.57 K/uL (0.11-0.59); Monocytes % (auto) 9.1 %; Neutrophils # (auto) 4.26 K/uL (1.4-6.5); Neutrophils % (auto) 68.3 %; Platelet Count 150 K/uL (130-400); RDW Coefficient of Variation 13.8 % (11.5-14.5); RDW Standard Deviation 43.1 fL (36.4-46.3); Red Blood Count 3.48 M/uL (4.2-5.4); White Blood Count 6.24 K/uL (4.8-10.8)
[2021-03-12 06:56] LABS: BUN Creatinine Ratio 16.8 (10-20); Calcium 8.3 mg/dl (8.5-10.1); Creatinine Clr Calc Pharmacy 45.5 ml/min; Est GFR (African American) 59.5 ml/min; Est GFR (Non-African American) 51.3 ml/min; Potassium 4.1 mmol/L (3.5-5.1)
[2021-03-12] MEDS: VERAPAMIL HCL 240 MG TABCR PO SCH (08:12)
[2021-03-12] MEDS: buPROPion SR 150 MG TABCR PO SCH (08:12)
[2021-03-12] MEDS: LOSARTAN POTASSIUM 25 MG TAB PO SCH (08:13)
[2021-03-12] MEDS: PANTOprazole 40 MG TAB PO SCH (08:17)
[2021-03-12] MEDS ORDERED: CIPROFLOXACIN 500 MG TAB PO SCH (09:00)
--- NOTE | 2021-03-12 10:47 | Hospitalist Progress Note ---
Date of Service March 12, 2021 Assessment & Plan (1) Bacteremia: Plan: Early sepsis POA E. coli bacteremia secondary to E. coli UTI-culture from 03/09/2021 Pansensitive Await repeat blood culture-growing E. coli and is pansensitive-culture from 03/09/2021 We will discharge the patient on oral ciprofloxacin to finish the course of 14 days (2) UTI (urinary tract infection): Plan: Patient is 75-year-old female with PMH recurrent UTI, urinary incontinence, DM II, HTN, dyslipidemia, CKD III, chronic anemia, anxiety, depression and others below returned to ER for positive blood cultures from yesterday. Patient was seen in ER yesterday for chills, nausea. Was found to have WBC of 14, UA suggestive of UTI. Patient was given Rocephin, IV fluids and was discharged on cefdinir. Today preliminary blood cultures positive for gram-negative bacilli, preliminary urine culture positive for gram-negative bacilli. In ER patient afebrile, vitals stable. WBC: 11, lactate: WNL. Early sepsis POA In ER given 1L NSS, cefepime Gentle IVF Continue cefepime Appreciate urology input and recommendation Obtain renal ultrasound secondary to UTI and renal insufficiency-mild right hydronephrosis unchanged Clinically much better Plan to start oral ciprofloxacin on discharge to finish the course of 14 days Repeat blood and urine cultures have been negative Urinary incontinence Has been going on since cystoscopy done sometime last year Awaiting further evaluation by a specialist in which will be recommended by the urologist Should be referred from urologist office to for definitive treatment of her incontinence (3) CKD (chronic kidney disease), stage III: Plan: Cr: 1.4. Baseline Cr: 1-1.2 Monitor renal functions, avoid nephrotoxic agents when possible Creatinine remains normal Acute kidney injury with chronic kidney disease Resolved (4) HTN (hypertension): Plan: Continue losartan, verapamil (5) Dyslipidemia: Plan: Continue atorvastatin (6) Depression with anxiety: Plan: Continue Wellbutrin DVT Prophylaxis -Heparin SQ Full code as per discussion with pt Follows with Dr Josseline Sosa for routine care Will be discharged home this afternoon Admission and Anticipated Discharge Date Admission Date: March 10, 2021 Subjective 03/11/2021 The patient was seen and examined in medical telemetry unit She has been stable and denies any symptoms No urinary symptoms and no fever and no chills 03/12/2021 The patient was seen and examined in medical telemetry unit She has been feeling much better and denies any symptoms Denies any urinary symptoms except incontinence which has been ongoing Denies any fever and/or chills Review of Systems Review of Systems: All systems reviewed and are unremarkable except as noted below Physical Exam Physical Exam: Lying in bed comfortably Constitutional: well developed, well nourished and + obese; not ill appearing Eyes: PERRL, conjunctivae normal, anicteric sclerae ENMT: external ear and nose normal, oropharynx normal Neck: trachea midline, no thyromegaly Respiratory: normal respiratory effort, lungs clear to auscultation Cardiovascular: Rate/Rhythm: regular rate and regular rhythm; not tachycardic Heart Sounds: normal S1 and normal S2; no murmur Extremities: + edema (Trace edema bilaterally) Gastrointestinal (Abdomen): normal bowel sounds, soft, nontender, no hepatosplenomegaly Musculoskeletal: No acute arthritis in any joint and has been moving around in the room without any problem Neurologic: Alert, awake and oriented x3. No focal sensory and motor deficit appreciated Lymphatic: no cervical or axillary lymphadenopathy Results & Data Results & Data ([facility]) Vital Signs (Past 12 Hours) Vital Signs Temp Pulse Pulse Resp BP Pulse Ox 03/12/21 07:44 86 03/12/21 07:21 36.9 C 77 18 135/71 93 03/12/21 03:00 37.1 C 72 18 131/53 L 92 03/11/21 23:58 74 Laboratory Results Short CBC 03/12/21 Range/Units 05:35 WBC 6.24 (4.8-10.8) K/uL Hgb 9.5 L (12.0-16.0) g/dL Hct 29.9 L (37-47) % Plt Count 150 (130-400) K/uL BMP 03/12/21 05:35 Sodium 139 Potassium 4.1 Chloride 113 H Carbon Dioxide 21 BUN 18 Creatinine 1.06 Glucose 95 Calcium 8.3 L Medications Administered Current Inpatient Medications Acetaminophen (Acetaminophen 325 Mg Tab) 650 mg PO Q4H PRN PRN Reason: Pain or Fever Stop: 04/09/21 18:56 Last Admin: 03/10/21 22:26 Dose: 650 mg Documented by: Atorvastatin Calcium (Atorvastatin 40 Mg Tab) 40 mg PO [facility] Stop: 04/09/21 20:59 Last Admin: 03/11/21 20:00 Dose: 40 mg Documented by: Bupropion HCl (Bupropion Sr 150 Mg Tabcr) 150 mg PO BID [facility] Stop: 04/09/21 20:59 Last Admin: 03/12/21 08:12 Dose: 150 mg Documented by: Ciprofloxacin (Ciprofloxacin 500 Mg Tab) 500 mg PO BID [facility]; Protocol Stop: 03/22/21 08:59 Last Admin: 03/12/21 10:05 Dose: 500 mg Documented by: Heparin Sodium (Porcine) (Heparin Sod 5,000 Unit/0.5 Ml Vial) 5,000 units SQ Q8 [facility] Stop: 04/09/21 21:59 Last Admin: 03/12/21 05:17 Dose: 5,000 units Documented by: Losartan Potassium (Losartan Potassium 25 Mg Tab) 25 mg PO [facility] Stop: 04/10/21 08:59 Last Admin: 03/12/21 08:13 Dose: 25 mg Documented by: Nortriptyline HCl (Nortriptyline Hcl 25 Mg Cap) 50 mg PO [facility] Stop: 04/09/21 20:59 Last Admin: 03/11/21 19:59 Dose: 50 mg Documented by: Ondansetron HCl (Ondansetron Inj 2 Mg/Ml 2 Ml Vial) 4 mg IV Q6H PRN PRN Reason: Nausea Stop: 04/09/21 18:56 Pantoprazole Sodium (Pantoprazole 40 Mg Tab) 40 mg PO [facility] Stop: 04/10/21 08:59 Last Admin: 03/12/21 08:17 Dose: 40 mg Documented by: Polyethylene Glycol (Polyethylene (Miralax) 17 Gm Pack) 17 gm PO DAILY PRN PRN Reason: Constipation Stop: 04/09/21 18:56 Trazodone HCl (Trazodone Hcl 100 Mg Tab) 100 mg PO [facility] Stop: 04/09/21 20:59 Last Admin: 03/11/21 19:59 Dose: 100 mg Documented by: Verapamil HCl (Verapamil Hcl 240 Mg Tabcr) 240 mg PO [facility] Stop: 04/10/21 08:59 Last Admin: 03/12/21 08:12 Dose: 240 mg Documented by: (1) UTI (urinary tract infection) Hematuria presence: without hematuria Urinary tract infection type: acute cystitis Qualified Code(s): N30.00 - Acute cystitis without hematuria
--- NOTE | 2021-03-12 17:53 | Discharge Summary ---
Date of Service March 12, 2021 Admission HPI Per Admitting Provider Patient is 75-year-old female with PMH recurrent UTI, urinary incontinence, DM II, HTN, dyslipidemia, CKD III, chronic anemia, anxiety, depression and others below returned to ER for positive blood cultures from yesterday. Patient was seen in ER yesterday for chills, nausea. Was found to have WBC of 14, UA suggestive of UTI. Patient was given Rocephin, IV fluids and was discharged on cefdinir. Today preliminary blood cultures positive for gram-negative bacilli, preliminary urine culture positive for gram-negative bacilli. Today patient states still with chills and general malaise. Denies vomiting, known fever. Patient follows with urology-Dr. Valdez. Denies fever/chills, diaphoresis, N/V/D/C, CRAIN, dizziness, syncope, vision changes, neck pain, CP, SOB, orthopnea, palpitations, cough, sore throat, choking, otalgia, rhinorrhea, abdominal pain, paresthesias, weakness, extremity weakness, extremity edema, rashes, urinary symptoms. In ER patient afebrile, vitals stable. WBC: 11, lactate: WNL. Was given 1L NSS, cefepime. Patient being admitted for further treatment and evaluation. Admission Exam Per Admitting Provider Physical Exam: General: no distress, WDWN Head: normocephalic, atraumatic Eyes: PERRL, EOM's intact, conjunctiva non-injected, anicteric ENT: normal inspection external ears, nose, mucous membranes moist Neck: supple, trachea midline Lungs: clear, no respiratory distress, no wheezing/rhonchi/rales CV: RRR, no murmur, no pretibial edema Abd: normal BS, soft, non-tender, no CVA tenderness to palpation Ext: no cyanosis, no calf tenderness Neuro: A&O x 3, no focal deficits noted, normal affect Skin: warm, dry Principal Diagnosis E. coli bacteremia, E. coli UTI, urinary incontinence Discharge Exam Constitutional well developed, well nourished and + obese; not ill appearing Eyes PERRL, conjunctivae normal, anicteric sclerae ENMT external ear and nose normal, oropharynx normal Neck trachea midline, no thyromegaly Respiratory normal respiratory effort, lungs clear to auscultation Cardiovascular Rate/Rhythm: regular rate and regular rhythm; not tachycardic Heart Sounds: normal S1 and normal S2; no murmur Extremities: + edema (Trace edema bilaterally) Gastrointestinal (Abdomen) normal bowel sounds, soft, nontender, no hepatosplenomegaly Lymphatic no cervical or axillary lymphadenopathy Discharge Data Allergies Allergy/AdvReac Type Severity Reaction Status Date / Time duloxetine [From Cymbalta] Allergy Unknown Unknown Verified 03/10/21 15:58 pregabalin AdvReac Intermediate EDEMA FROM Verified 03/10/21 15:58 KNEES TO FEET fluticasone [From Flonase] AdvReac Mild Nausea Verified 03/10/21 15:58 Consultations 03/10/21 16:19 ED Decision to Admit Stat 03/10/21 17:30 Consult Urology Routine Ordered Studies 03/11/21 17:25 US renal/blad retro comp Routine Hospital Course (1) Bacteremia: Early sepsis POA E. coli bacteremia secondary to E. coli UTI-culture from 03/09/2021 Pansensitive Await repeat blood culture-growing E. coli and is pansensitive-culture from 03/09/2021 We will discharge the patient on oral ciprofloxacin to finish the course of 14 days (2) UTI (urinary tract infection): Patient is 75-year-old female with PMH recurrent UTI, urinary incontinence, DM II, HTN, dyslipidemia, CKD III, chronic anemia, anxiety, depression and others below returned to ER for positive blood cultures from yesterday. Patient was seen in ER yesterday for chills, nausea. Was found to have WBC of 14, UA suggestive of UTI. Patient was given Rocephin, IV fluids and was discharged on cefdinir. Today preliminary blood cultures positive for gram-negative bacilli, preliminary urine culture positive for gram-negative bacilli. In ER patient afebrile, vitals stable. WBC: 11, lactate: WNL. Early sepsis POA In ER given 1L NSS, cefepime Gentle IVF Continue cefepime Appreciate urology input and recommendation Obtain renal ultrasound secondary to UTI and renal insufficiency-mild right hydronephrosis unchanged Clinically much better Plan to start oral ciprofloxacin on discharge to finish the course of 14 days Repeat blood and urine cultures have been negative Urinary incontinence Has been going on since cystoscopy done sometime last year Awaiting further evaluation by a specialist in [facility] which will be recommended by the urologist Should be referred from urologist office to [facility] for definitive treatment of her incontinence (3) CKD (chronic kidney disease), stage III: Cr: 1.4. Baseline Cr: 1-1.2 Monitor renal functions, avoid nephrotoxic agents when possible Creatinine remains normal Acute kidney injury with chronic kidney disease Resolved (4) HTN (hypertension): Continue losartan, verapamil (5) Dyslipidemia: Continue atorvastatin (6) Depression with anxiety: Continue Wellbutrin DVT Prophylaxis -Heparin SQ Full code as per discussion with pt Follows with Dr Josseline Sosa for routine care Will be discharged home this afternoon Total Time Total Time Spent Total Time Spent (In Minutes): 35 minutes Discharge Plan Discharge Items Patient Disposition: Home - Self-Care Reason For Visit: UTI, SEPTIC Discharge Diagnosis: E. coli bacteremia, E. coli UTI, urinary incontinence Condition on Discharge: Good Activity: Resume your previous activity Non-emergency contact: Primary Care Provider Call non-emergency contact if: you have any medication questions and your symptoms worsen Follow-up/Referrals: Josseline Sosa DO [Primary Care Provider] - (Date & Time 03/18/2021 10:40 AM Provider Josseline Sosa DO Department Family Practice [facility], [place] ) Diet: Regular Fluids: 1800ml (7 cups) Addtl Attending Provider Instructions: Take precautions to avoid fall Please finish the course of antibiotic Keep appointment with urologist to get the referral to see urologist in [facility] for your incontinence Pending Studies at Discharge: No Stand-Alone Forms: [employer], Smoking Cessation Medications and DC Order Prescriptions: New ciprofloxacin HCl 500 mg Tablet 500 mg PO BID Qty: 24 RF: 0 Lactinex 1 million cell tablet,chewable 1 tab PO BID Qty: 30 RF: 0 Continued atorvastatin [Lipitor] 40 mg tablet 40 mg PO HS RF: 0 bupropion HCl [Wellbutrin SR] 150 mg tablet sustained-release 12 hr 150 mg PO BID RF: 0 meloxicam [Mobic] 15 mg tablet 15 mg PO QAM RF: 0 sumatriptan succinate [Imitrex] 50 mg Tablet 50 mg PO DIRECTED PRN (Reason: Migraine Headache) RF: 0 nortriptyline [Pamelor] 25 mg capsule 50 mg PO HS RF: 0 trazodone 100 mg tablet 100 mg PO HS RF: 0 omeprazole 20 mg capsule,delayed release(DR/EC) 20 mg PO QAM RF: 0 verapamil [Calan SR] 240 mg tablet extended release 240 mg PO QAM RF: 0 losartan [Cozaar] 25 mg tablet 25 mg PO QAM RF: 0 Excedrin Extra Strength 250-250-65 mg Tablet 1 tab PO UD PRN (Reason: Pain) RF: 0 acetaminophen [Tylenol Extra Strength] 500 mg Tablet 500 mg PO Q6H PRN (Reason: Pain) RF: 0 Discontinued cefdinir 300 mg capsule 300 mg PO BID 10 Days Qty: 20 RF: 0 Discharge Orders: Discharge Order (Routine); Ordered 03/12/21 Ordered By: María Castillo Admission Data Admit Date/Time: 03/10/21 16:50 Attending Provider: María Castillo Admit Provider: María Castillo Primary Care Provider: Josseline Sosa Other Providers: María Castillo ; Hernandez Valdez Other Interventions: Discharge Summary Assessment (RN) Last Done: 03/12/21 15:10
--- NOTE | 2021-03-12 18:45 | Electrocardiogram Report ---
Test Reason : Blood Pressure : / mmHG Vent. Rate : 062 BPM Atrial Rate : 062 BPM P-R Int : 138 ms QRS Dur : 140 ms QT Int : 448 ms P-R-T Axes : 015 -10 008 degrees QTc Int : 454 ms Normal sinus rhythm Right bundle branch block Abnormal ECG When compared with ECG of 10-MAR-2021 16:23, Sinus rhythm has replaced Junctional rhythm Confirmed by Israel Moura ([id number] on 03/12/2021 6:44:29 PM Referred By: REFERRED SELF Confirmed By:Wes Moura
== END 2021-03-12 15:44 | disposition home or self-care (01) | DRG 872 ==
LOC: ED 14:38 → 2W 16:50

== ENCOUNTER 2023-02-03 10:16 | Inpatient (IN) ==
--- NOTE | 2023-01-28 08:30 | Anesthesiology Consultation ---
Date of Service January 28, 2023 Assessment & Plan (1) Encounter for pre-operative examination: - Covid screening: Per manager treasury on 01/28/23: No known infectious disease contacts or current infectious disease symptoms in past 10 days. No COVID positive test result in the past 90 days noted. - Update EKG DOS: Poor data quality > Patient has spinal cord stimulator. MARSHA RN advised patient to bring remote DOS. Will update EKG DOS. Chart Review Chart Review: Acceptable Risk for Surgery and Patient NOT seen in Pre Admission Testing History Surgery Operation Date: 02/03/23 07:45 Proposed Procedures p L1-L2 Decompression, T11-L2 Fusion (Connecting to the existing Hardware) - Gr nehemiah Oconnell, DO Height/Weight Height: 5 ft 7 in Weight: 82.554 kg Allergies Allergy/AdvReac Type Severity Reaction Status Date / Time duloxetine [From Cymbalta] Allergy Unknown Unknown Verified 01/27/23 15:49 pregabalin AdvReac Intermediate Edema Verified 01/28/23 12:11 (knees to feet) fluticasone [From Flonase] AdvReac Mild Nausea Verified 01/27/23 15:49 Medications Home Medications Medication Instructions Recorded Confirmed Last Taken atorvastatin 40 mg tablet (Lipitor) 40 mg PO HS 09/01/18 01/27/23 03/09/21 bupropion HCl 150 mg tablet,12 hr 150 mg PO BID 09/01/18 01/27/23 03/10/21 08:00 sustained-release (Wellbutrin SR) meloxicam 15 mg tablet (Mobic) 15 mg PO QAM 09/01/18 01/27/23 03/10/21 omeprazole 20 mg capsule,delayed 20 mg PO QAM 09/01/18 01/27/23 03/10/21 release sumatriptan succinate 50 mg tablet 50 mg PO DIRECTED PRN Migraine 09/01/18 01/27/23 12/17/20 (Imitrex) Headache trazodone 100 mg tablet 100 mg PO HS 09/01/18 01/27/23 03/09/21 verapamil 240 mg tablet,extended 240 mg PO QAM 09/01/18 01/27/23 03/10/21 release (Calan SR) losartan 25 mg tablet (Cozaar) 25 mg PO QAM 03/23/19 01/27/23 03/10/21 acetaminophen 500 mg tablet 500 mg PO Q6H PRN Pain 03/09/21 01/27/23 03/09/21 05:15 (Tylenol Extra Strength) 1000 mg buprenorphine 7.5 mcg/hour weekly 1 patch transdermal Q7D 01/27/23 01/27/23 Unknown transdermal patch memantine 10 mg tablet 10 mg PO BID 01/27/23 01/27/23 Unknown oxybutynin chloride 10 mg 10 mg PO QAM 01/27/23 01/27/23 Unknown tablet,extended release 24 hr Past Medical History Medical History Chronic back pain CKD (chronic kidney disease), stage III Depression Depression with anxiety Diabetes mellitus type 2, diet-controlled Diet controlled Dyslipidemia Esophageal stricture s/p esophageal dilation years ago, no recent issues Frequent UTI Hx frequent UTIs > sepsis x2, no current/recent UTI/urinary issues GERD (gastroesophageal reflux disease) Well controlled, stable History of kidney stones History of skin cancer s/p excision HTN (hypertension) Migraine Past Family History Family History Brother Myocardial infarction, Onset Age: 46 Fatal Diabetes 4 BROTHERS WITH THIS Mother Parkinson's disease Father Multiple sclerosis Past Surgical History Surgical History H/O bladder repair surgery H/O repair of left rotator cuff H/O: hysterectomy History of back surgery Lumbar x2 History of back surgery 07/2020, Right SI joint fusion History of cataract surgery R/L History of colonoscopy History of cystoscopy B/L stents (since removed) History of esophagogastroduodenoscopy (EGD) History of hip replacement R/L History of nasal surgery History of surgery on left wrist History of tooth extraction Hx of fusion of cervical spine "Good ROM" per patient S/P insertion of spinal cord stimulator PAT RN advised patient to bring remote DOS Social History Smoking Status: Never smoker Do You Dip or Chew Tobacco: No Hx Alcohol Use: No Hx Substance Use: No substance use type: does not use Lab Results Anesthesia Preop Results Results Anesthesia Widget: WBC 7.71 K/ul (4.8-10.8) 01/09/23 Hgb 12.5 g/dl (12.0-16.0) 01/09/23 Hct 37.9 % (37.0-47.0) 01/09/23 Plt 167 K/uL (130-400) 01/09/23 Na 140 mmol/L (136-145) 01/09/23 K 4.1 mmol/L (3.5-5.1) 01/09/23 Cl 108 mmol/L (98-107) H 01/09/23 CO2 24 mmol/L (21-32) 01/09/23 BUN 23 mg/dl (6-23) 01/09/23 Creat 0.86 mg/dl (0.6-1.2) 01/09/23 Glucose Level 121 mg/dl (70-99(Fasting)) H 01/09/23 PT 10.8 Seconds (9.0-12.0) 01/09/23 PTT 25.5 Seconds (21.0-31.0) 01/09/23 INR 1.0 (0.9-1.1) 01/09/23 Urine Color Yellow 01/09/23 Urine Appearance Cloudy (Clear) A 01/09/23 Urine pH 5.5 (4.5-7.5) 01/09/23 Urine Specific [place] 1.019 (1.000-1.030) 01/09/23 Urine Protein Negative (Negative) 01/09/23 Urine Glucose (UA) Negative (Negative) 01/09/23 Urine Ketones Negative (Negative) 01/09/23 Urine Blood Trace (Negative) H 01/09/23 Urine Nitrite Positive (Negative) A 01/09/23 Urine Bilirubin Negative (Negative) 01/09/23 Urine Urobilinogen Negative (Negative) 01/09/23 Urine Leukocyte Esterase 1+ (Negative) H 01/09/23 Urine WBC (Auto) >30 /hpf (0-5) H 01/09/23 Urine RBC (Auto) 5-10 /hpf (0-4) H 01/09/23 Urine Hyaline Casts (Auto) 1-5 /lpf (0-5) 01/09/23 Urine Epithelial Cells (Auto) >30 /lpf (0-5) H 01/09/23 Urine Bacteria (Auto) 4+ (Negative) H 01/09/23 Blood Type A Positive 01/09/23 Antibody Screen NEGATIVE 01/09/23 Testing Laboratory Results Urine culture (7/7/23): E. coli, alpha strep non enterococcus (surgeon ordered) Electrocardiogram Date: 01/09/23 SB at 54bpm. RBBB. No significant change compared to 03/12/21 per interior design instructor comparison. Poor data quality- patient does have spinal cord stimulator* Chest X-Ray Date: 01/09/23 FINDINGS: PA and lateral chest radiographs are compared to study dated 03/09/2021. The cardiomediastinal silhouette is top normal for projection. There is chronic elevation of the left hemidiaphragm and bibasilar atelectasis. The lungs and pleural spaces are otherwise clear. There is no pneumothorax. The skeletal structures are osteopenic. The bony thorax appears intact. Degenerative change is seen throughout the spine. Fusion hardware is seen in the lower cervical spine as well as the upper lumbar spine. IMPRESSION: No active disease in the chest.
[~2023-02-03 10:16] MED LIST changes: -BACITRACIN INJ 50,000 UNIT VIAL ONE; -BUPIVACAINE/EPINEPHRINE 0.5% MPF 1:200,000 30 ML VIAL ONE; +LR 60ML/HR IV SCH
--- NOTE | 2023-02-03 12:05 | History & Physical Bridge Note ---
Date of Service February 03, 2023 History & Physical Bridge Note I have examined the patient, reviewed the History & Physical and in the interval since the performance of the History & Physical I have noted the following changes of clinical significance: no changes noted
--- NOTE | 2023-02-03 12:08 | History & Physical Report ---
Date of Service February 03, 2023 Assessment & Plan (1) Neurogenic claudication due to lumbar spinal stenosis: Plan: L1-L2 decompression, T11-L2 fusion connecting to existing hardware. History of Present Illness Chief Complaint: Chronic back and leg pain Primary Care Provider: Josseline Sosa DO This is a 77-year-old female who presents with chronic persistent back and leg pain and failing since course of nonoperative care is here for surgical invention. Allergies Allergy/AdvReac Type Severity Reaction Status Date / Time duloxetine [From Cymbalta] Allergy Unknown Unknown Verified 02/03/23 10:56 pregabalin AdvReac Intermediate Edema Verified 02/03/23 10:56 (knees to feet) fluticasone [From Flonase] AdvReac Mild Nausea Verified 02/03/23 10:56 Home Medications Medication Instructions Recorded Confirmed Type atorvastatin 40 mg tablet (Lipitor) 80 mg PO HS 09/01/18 02/03/23 History bupropion HCl 150 mg tablet,12 hr 150 mg PO BID 09/01/18 02/03/23 History sustained-release (Wellbutrin SR) meloxicam 15 mg tablet (Mobic) 15 mg PO QAM 09/01/18 02/03/23 History omeprazole 20 mg capsule,delayed 20 mg PO QAM 09/01/18 02/03/23 History release sumatriptan succinate 50 mg tablet 50 mg PO DIRECTED PRN Migraine 09/01/18 02/03/23 History (Imitrex) Headache trazodone 100 mg tablet 100 mg PO HS 09/01/18 02/03/23 History verapamil 240 mg tablet,extended 240 mg PO QAM 09/01/18 02/03/23 History release (Calan SR) losartan 25 mg tablet (Cozaar) 25 mg PO QAM 03/23/19 02/03/23 History acetaminophen 500 mg tablet 500 mg PO Q6H PRN Pain 03/09/21 02/03/23 History (Tylenol Extra Strength) buprenorphine 7.5 mcg/hour weekly 1 patch transdermal Q7D 01/27/23 02/03/23 History transdermal patch memantine 10 mg tablet (Namenda) 10 mg PO BID 01/27/23 02/03/23 History oxybutynin chloride 10 mg 10 mg PO QAM 01/27/23 02/03/23 History tablet,extended release 24 hr Past Med/Surg History Medical History Chronic back pain CKD (chronic kidney disease), stage III Depression Depression with anxiety Diabetes mellitus type 2, diet-controlled Diet controlled Dyslipidemia Esophageal stricture s/p esophageal dilation years ago, no recent issues Frequent UTI Hx frequent UTIs > sepsis x2, no current/recent UTI/urinary issues GERD (gastroesophageal reflux disease) Well controlled, stable History of kidney stones History of skin cancer s/p excision HTN (hypertension) Migraine Surgical History H/O bladder repair surgery H/O repair of left rotator cuff H/O: hysterectomy History of back surgery Lumbar x2 History of back surgery 07/2020, Right SI joint fusion History of cataract surgery R/L History of colonoscopy History of cystoscopy B/L stents (since removed) History of esophagogastroduodenoscopy (EGD) History of hip replacement R/L History of nasal surgery History of surgery on left wrist History of tooth extraction Hx of fusion of cervical spine "Good ROM" per patient S/P insertion of spinal cord stimulator PAT RN advised patient to bring remote DOS Family History Brother Myocardial infarction, Onset Age: 46 Fatal Diabetes 4 BROTHERS WITH THIS Mother Parkinson's disease Father Multiple sclerosis Social History Smoking Status: Never smoker Second Hand Exposure: No; Do You Dip or Chew Tobacco: No; Hx Alcohol Use: No Hx Substance Use: No Preferred Language: Polish Communication Ability: Effective Therapeutic Mentor Required: No Beliefs That Will Affect Care: None marital status: Current Living Situation: Spouse Current Living Situation Comment: Home with spouse Feels Safe at Home: Yes Safety Concerns: Feels Safe At This Time Assistive Devices: Glasses and Hearing Aid - Bilateral Physical Exam Physical Exam: Patient is alert and oriented Heart regular rhythm Lungs clear Results & Data Results & Data Vital Signs (Past 12 Hours) Vital Signs Temp Pulse Resp BP Pulse Ox O2 Del Method 02/03/23 11:07 36.6 C 73 20 176/89 H 94 Room Air
[2023-02-03] MEDS ORDERED: fentaNYL citrate PF 100 MCG/2 ML VIAL ONE (12:16)
[2023-02-03] MEDS ORDERED: BUPIVACAINE/EPINEPHRINE 0.25% 1:200,000 30 ML VIAL ONE (12:24)
[2023-02-03] MEDS ORDERED: ceFAZolin 330 MG/ML 1 GM VIAL ONE (12:24)
[2023-02-03] MEDS ORDERED: KETAMINE 50 MG/5 ML SYRINGE ONE (12:56)
[2023-02-03] MEDS ORDERED: DEXAMETHASONE SOD INJ 4 MG/ML VIAL ONE (13:08)
[2023-02-03] MEDS ORDERED: ROCURONIUM BROMIDE 10 MG/ML 5 ML VIAL IV ONE (13:08)
[2023-02-03] MEDS ORDERED: ONDANSETRON INJ 2 MG/ML 2 ML VIAL ONE (13:08)
[2023-02-03] MEDS ORDERED: PROPOFOL IV EMULSION 10 MG/ML 20 ML VIAL IV ONE (13:08)
[2023-02-03] MEDS ORDERED: LIDOCAINE 2% 2 ML VIAL/AMP(20MG/ML) INFIL ONE (13:08)
[2023-02-03] MEDS ORDERED: PROMETHAZINE HCL 12.5 MG in SODIUM CHLORIDE 0.9% 50 ML IV PRN ×2 (14:01→16:15)
[2023-02-03] MEDS ORDERED: FLUMAZENIL 0.1 MG/1 ML 10 ML VIAL IV PRN (14:01)
[2023-02-03] MEDS ORDERED: HYDROmorphone INJ 1 MG/ML SYRINGE IV PRN (14:01)
[2023-02-03] MEDS ORDERED: ePHEDrine sulfate 50 MG/ML AMP IV PRN (14:01)
[2023-02-03] MEDS ORDERED: ONDANSETRON INJ 2 MG/ML 2 ML VIAL IV PRN ×2 (14:01→16:15)
[2023-02-03] MEDS ORDERED: NALOXONE HCL 0.4 MG/1 ML VIAL/CARP IV PRN ×2 (14:01→16:15)
[2023-02-03] MEDS ORDERED: LABETALOL HCL IV 5 MG/ML 20ML IV PRN (14:01)
[2023-02-03] MEDS ORDERED: ATROPINE SULFATE 0.1 MG/ML 10ML SYR IV PRN (14:01)
[2023-02-03] MEDS ORDERED: fentaNYL citrate PF 100 MCG/2 ML VIAL IV PRN (14:01)
[2023-02-03] MEDS ORDERED: FLOSEAL HEMOSTATIC MATRIX 10ML TOP ONE (14:39)
[2023-02-03] MEDS ORDERED: SUGAMMADEX SODIUM 200 MG/2 ML VIAL IV ONE (14:39)
--- NOTE | 2023-02-03 14:53 | Operative Report ---
Post Operative Report Pre & Post Diagnosis Operation Date: 02/03/23 11:25 Pre-Op Diagnosis: Neurogenic claudication due to lumbar spinal stenosis Post-Op Diagnosis: Neurogenic claudication due to lumbar spinal stenosis I identified the patient and participated in the time-out.: Yes Procedure Operation Date: 02/03/23 11:25 Actual Procedures #1 removal of posterior instrumentation L2-L4. #2 exploration of fusion L2-L4. #3 lumbar decompression bilaterally facetectomies and foraminotomies T12-L1 L1- L2. #4 posterior spinal fusion T11-L2. #5 placement posterior segmental instrumentation T11-L4. #6 interbody fusion L1 1 L2. #7 placement of Spira 8 x 22 mm at L1-L2. #8 placement locally harvested morselized autograft and posterior gutters. #9 placement of I factor in the interbody space and infuse collagen sponge combined with V toss in the posterior gutters. Surgeon Diogo Oconnell, DO Separator Operator [employer] Aditi Longo Estimated Blood Loss 200 Findings Consistent with Post-Op Diagnosis Specimens None Indications This is a 77-year-old female presents above-mentioned diagnosis and failing since course of nonoperative care is here for surgical invention. Description of Procedure Patient was met with identified informed consent obtained. Patient was then taken to the operative suite underwent patient placed in a prone position on the Roc table top of the Pancho frame. All bony promises well-padded eyes inspected to ensure no external pressure placed upon the. This point the thoracolumbar spine was prepped and draped in a sterile fashion. Sharp dissection with assistance of Bovie cautery form down to and exposing the lamina and transverse processes of T11-T12 L1 and instrumentation at L2-L3-L4 bilaterally. Then proceeded move the hardware bilaterally explore the fusion mass noting it to be mature and intact. Informed complete laminectomy of L1 partial laminectomy of T12 including bilateral medial facetectomies and foraminotomies addressing severe spinal stenosis. Pedicle screws then placed in T11-T12 L1-L2 and L4 bilaterally with assistance of fluoroscopy and by way of a transforaminal approach on the right complete discectomy of L1-L2 was performed endplates guided to subcortically bone and 8 x 22 mm Spira cage with I factor tapped in position. Proper size rods were then contoured and locked in position bilaterally. Transverse processes of T11-T12 L1 and L2 burred to subcortical bleeding bone. Infuse collagen sponge, and V toss placed in the posterior gutters combined with locally harvested morselized autograft. 15 round TAE drain inserted. The incision was then closed with 1 Vicryl to fascia 2-0 Vicryl subcutaneously and 4 Monocryl for final skin closure. Steri-Strips sterile dressings placed. Patient awakened taken to PACU in stable condition. Please note spinal cord monitoring visualized at the procedure no changes noted. Elizabeth Longo was present at the entire surgery involved the patient positioning complex portions of the surgery and final skin closure. I attest to the content of the Intraoperative Record and any orders documented therein. Any exceptions are noted below.
--- NOTE | 2023-02-03 16:00 | Anesthesiology Progress Note ---
Date of Service February 03, 2023 Anesthesia Post Procedure Vital Signs Vital Signs: Temp Pulse Pulse Resp BP Pulse Ox O2 Del Method 02/03/23 15:40 47 L 11 L 117/54 L 100 Oxymask 02/03/23 15:30 50 L 11 L 111/43 L 100 Oxymask 02/03/23 15:20 45 L 13 111/46 L 99 Oxymask 02/03/23 15:14 37.0 C 99 H 15 139/69 99 Oxymask 02/03/23 11:07 36.6 C 73 20 176/89 H 94 Room Air O2 Flow Rate 02/03/23 15:40 9 02/03/23 15:30 9 02/03/23 15:20 9 02/03/23 15:14 9 02/03/23 11:07 Pain Intensity Back: Pain Intensity: 4 Transfer of Care Handoff Completed per policy Notes Mental Status: alert / awake / arousable Patient Amnestic to Procedure: Yes Nausea / Vomiting: adequately controlled Pain: adequately controlled Airway Patency, RR, SpO2: stable & adequate BP & HR: stable & adequate Hydration State: stable & adequate Anesthetic Complications: no major complications apparent
[2023-02-03] MEDS ORDERED: ACETAMINOPHEN 1,000 MG/100 ML VIAL IV PRN (16:15)
[2023-02-03] MEDS ORDERED: DO NOT ADMINISTER FLU VACCINE PRN (16:15)
[2023-02-03] MEDS ORDERED: ALUMINUM/MAGNESIUM SUSP 30 ML UDC PO PRN (16:15)
[2023-02-03] MEDS ORDERED: LORazepam 2 MG/1 ML VIAL IV PRN (16:15)
[2023-02-03] MEDS ORDERED: LORazepam 0.5 MG TAB PO PRN (16:15)
[2023-02-03] MEDS ORDERED: FAMOTIDINE 20 MG TAB PO PRN (16:15)
[2023-02-03] MEDS ORDERED: ONDANSETRON 4 MG OD TAB PO PRN (16:15)
[2023-02-03] MEDS ORDERED: diphenhydrAMINE Capsule 25 MG CAP PO PRN (16:15)
[2023-02-03] MEDS ORDERED: DO NOT ADMINISTER PNEUMOCOCCAL VACCINE PRN (16:15)
[2023-02-03] MEDS ORDERED: hydrOXYzine HCl 25 MG TAB PO PRN (16:15)
[2023-02-03] MEDS ORDERED: ACETAMINOPHEN 500 MG TAB PO PRN (16:15)
[2023-02-03] MEDS ORDERED: traMADol HCL 50 MG TABLET PO PRN (16:15)
[2023-02-03] MEDS ORDERED: MAGNESIUM HYDROXIDE SUSP 30 ML UDC PO PRN (16:15)
[2023-02-03] MEDS ORDERED: SOD PHOSPHATE/SOD BIPHOSPHATE ENEMA 132 ML BTL PR PRN (16:15)
[2023-02-03] MEDS ORDERED: SUMAtriptan succinate 50 MG TAB PO PRN (16:15)
[2023-02-03] MEDS ORDERED: HYDROmorphone INJ 0.5 MG/0.5 ML SYR IV PRN (16:15)
[2023-02-03] MEDS ORDERED: METOCLOPRAMIDE HCL INJ 5 MG/ML 2 ML VIAL IV PRN (16:15)
[2023-02-03] MEDS ORDERED: bisacodyL 10 MG SUPP PR PRN (16:15)
[2023-02-03] MEDS: SODIUM CHLORIDE 0.9% 1000ML 1,000 ML IV SCH (16:29)
--- NOTE | 2023-02-03 17:04 | Fluoroscopy Report ---
INTRAOPERATIVE RADIOGRAPHS CLINICAL HISTORY: Lumbar spinal fusion surgery. Fluoro time: 38 seconds. Ka,r: 22.71 mGy FINDINGS: 2 spot fluoroscopic views of the thoracolumbar spine are presented. There is evidence of mu ltilevel laminectomy and posterior fusion throughout the thoracolumbar spine. The exact levels cannot be delineated on these fluoroscopic views. Discectomy change is noted at 2 levels, likely in the upp er lumbar region. Interpedicular screws are present at several levels. The orthopedic hardware appear s intact. IMPRESSION: Intraoperative images from multilevel thoracolumbar spinal fusion surgery as above. Electronically signed by: Barry Bailon M.D. 02/03/2023 5:03 PM
--- NOTE | 2023-02-03 17:35 | Consultation ---
Date of Consultation February 03, 2023 Assessment & Plan (1) Neurogenic claudication due to lumbar spinal stenosis: (2) HTN (hypertension): (3) Dyslipidemia: (4) Diabetes mellitus type 2, diet-controlled: (5) CKD (chronic kidney disease), stage III: (6) Depression with anxiety: Plan 77 year old that presents to the [facility] for a planned elective L1-L2 decompression surgery with T11-T12 fusion under the care of Dr. Oconnell. Additional PMH includes: Diet controlled diabetes mellitus type 2, CKD stage III, HLD, HTN, anxiety and depression. Frequent UTI in her past; obtain UA as patient suspects she has one with tremulous hands. Neurogenic claudication d/t lumbar spinal stenosis: POD#0 s/p L1-L2 Decompression and T11-T12 fusion under the care of Dr. Oconnell. Per ortho for pain control, wound care, anticoagulation and activities. Monitor H&H, pre op Hgb from 01/09 12.5; will trend in AM Continue incentive spirometry, demonstrated appropriate use PT/OT when appropriate HTN: Takes losartan and verapamil; continue HLD: Takes atorvastatin; continue H/O frequent UTI: Just completed course of abx preoperatively having slight tremors that she states is her symptom when she gets UTI urine cloudy in hahn; will obtain UA Otherwise hemodynamically stable DM2, diet-controlled: Most recent A1c 11/21/2022: 6.7 Depression and anxiety: Takes Wellbutrin; continue GERD: Takes Omeprazole; continue Disposition: PCP: Dr. Sosa Code Status: Full Code VTE Prophylaxis: per admitting team I spent a total of minutes coordinating, documenting, and providing care for this patient excluding time spent in the performance of separately billed services. All of the aforementioned completed while collaborating with the assigned attending physician for a full treatment plan. Please see their addendum for further details. Supervising Physician Co-Signing Physician Notes I have seen and examined the patient and have discussed the case with the provider above. I agree with the assessment and plan as stated. 77 yo F s/p back surgery today. Reports having taken a tramadol and feels this is working for her pain. She denies any other symptoms or issues at this time. She is comfortably resting in bed. TAE drain in place. Hahn catheter in place draining clear yellow urine. Lower extremities are NVI. Labs and medications reviewed. Cont management as noted above. DO Grabiel History of Present Illness Requesting Physician: Dr. Oconnell Reason for Consultation: post op medical management Attending Physician: Diogo Oconnell DO History of Present Illness Ms. Berry is a 77 year old that presents to the [facility] for a planned elective L1-L2 decompression surgery with T11-T12 fusion under the care of Dr. Oconnell. Additional PMH includes: Diet controlled diabetes mellitus type 2, CKD stage III, HLD, HTN, anxiety and depression.Patient also has frequent UTI's. EBL 200 mL. She has had 4 back surgeries previously. On exam, patient laying on her right side awake alert oriented and able to have full conversation. Patient on 2 L oxygen postop with SPO2 98%. Patient with minimal tremors in her hands and indicates that she has frequent UTIs; preoperatively completed antibiotics a few weeks ago for UTI. She states that this is her normal presentation for UTI and noted cloudy urine in her Hahn bag. We will obtain a UA and address as necessary. Otherwise hemodynamically stable without any other symptoms. [facility] hospitalist service consulted for postoperative medical management. Please see A/P for further details. Please contact our service via [facility] text 26/01 for any questions or concerns. Allergies Allergy/AdvReac Type Severity Reaction Status Date / Time duloxetine [From Cymbalta] Allergy Unknown Unknown Verified 02/03/23 10:56 pregabalin AdvReac Intermediate Edema Verified 02/03/23 10:56 (knees to feet) fluticasone [From Flonase] AdvReac Mild Nausea Verified 02/03/23 10:56 Home Medications Medication Instructions Recorded Confirmed Type atorvastatin 40 mg tablet (Lipitor) 80 mg PO HS 09/01/18 02/03/23 History bupropion HCl 150 mg tablet,12 hr 150 mg PO BID 09/01/18 02/03/23 History sustained-release (Wellbutrin SR) meloxicam 15 mg tablet (Mobic) 15 mg PO QAM 09/01/18 02/03/23 History omeprazole 20 mg capsule,delayed 20 mg PO QAM 09/01/18 02/03/23 History release sumatriptan succinate 50 mg tablet 50 mg PO DIRECTED PRN Migraine 09/01/18 02/03/23 History (Imitrex) Headache trazodone 100 mg tablet 100 mg PO HS 09/01/18 02/03/23 History verapamil 240 mg tablet,extended 240 mg PO QAM 09/01/18 02/03/23 History release (Calan SR) losartan 25 mg tablet (Cozaar) 25 mg PO QAM 03/23/19 02/03/23 History acetaminophen 500 mg tablet 500 mg PO Q6H PRN Pain 03/09/21 02/03/23 History (Tylenol Extra Strength) buprenorphine 7.5 mcg/hour weekly 1 patch transdermal Q7D 01/27/23 02/03/23 History transdermal patch memantine 10 mg tablet (Namenda) 10 mg PO BID 01/27/23 02/03/23 History oxybutynin chloride 10 mg 10 mg PO QAM 01/27/23 02/03/23 History tablet,extended release 24 hr Patient History Medical History (Updated 02/03/23 @ 17:34 by GIDEON Epperson) Chronic back pain CKD (chronic kidney disease), stage III Depression Depression with anxiety Diabetes mellitus type 2, diet-controlled Diet controlled Dyslipidemia Esophageal stricture s/p esophageal dilation years ago, no recent issues Frequent UTI Hx frequent UTIs > sepsis x2, no current/recent UTI/urinary issues GERD (gastroesophageal reflux disease) Well controlled, stable History of kidney stones History of skin cancer s/p excision HTN (hypertension) Migraine Surgical History H/O bladder repair surgery H/O repair of left rotator cuff H/O: hysterectomy History of back surgery Lumbar x2 History of back surgery 07/2020, Right SI joint fusion History of cataract surgery R/L History of colonoscopy History of cystoscopy B/L stents (since removed) History of esophagogastroduodenoscopy (EGD) History of hip replacement R/L History of nasal surgery History of surgery on left wrist History of tooth extraction Hx of fusion of cervical spine "Good ROM" per patient S/P insertion of spinal cord stimulator PAT RN advised patient to bring remote DOS Family History Brother Myocardial infarction, Onset Age: 46 Fatal Diabetes 4 BROTHERS WITH THIS Mother Parkinson's disease Father Multiple sclerosis Social History Smoking Status: Never smoker Second Hand Exposure: No; Do You Dip or Chew Tobacco: No; Hx Alcohol Use: No Hx Substance Use: No Preferred Language: Maltese Communication Ability: Effective Carcass Washer Required: No Beliefs That Will Affect Care: None marital status: Current Living Situation: Spouse Current Living Situation Comment: Home with spouse Feels Safe at Home: Yes Safety Concerns: Feels Safe At This Time Assistive Devices: Glasses and Hearing Aid - Bilateral Review of Systems Review of Systems: Neuro: (-) Falls, trauma, slurred speech HEENT: (-) CRAIN, dizziness, dysphagia, visual or auditory changes CV: (-) CP, palpitations, swelling Resp: (-) SOB GI: (-) appetite changes, N/V/D, bowel changes : (-) urinary changes Skin: (-) rashes Psych: (-) anxiety, depression Physical Exam Physical Exam: Neuro: AAOx4, PERRLA, no aphagia, memory changes, CNII-XII grossly intact HEENT: head normocephalic, moist mucus membranes CV: S1/S2, (-) M/G/R, (-) edema, cap refill < 3 seconds . TAE x1 draining bhavesh red blood. Resp: Lungs CTA in all car. On RA GI: Abdomen S/NT/ND, Ax4 bowel sounds, (-) CVA tenderness Musculoskeletal: 5/5 B/L UE strength, 5/5 B/L LE strength. No gait disturbance Skin: (-) rashes , (-) erythema. Incision dressing C/D/I. Psych: euthymic mood Results & Data Vital Signs (Past 12 Hours) Vital Signs Temp Pulse Pulse Resp BP Pulse Ox O2 Del Method 02/03/23 17:07 36.6 C 51 L 14 127/68 100 Nasal Cannula 02/03/23 16:30 Nasal Cannula 02/03/23 16:30 36.5 C 58 L 14 147/73 H 98 Nasal Cannula 02/03/23 16:00 37.0 C 56 L 15 132/58 L 99 Nasal Cannula 02/03/23 15:40 47 L 11 L 117/54 L 100 Oxymask 02/03/23 15:30 50 L 11 L 111/43 L 100 Oxymask 02/03/23 15:50 37.0 C 50 L 9 L 125/57 L 98 Nasal Cannula 02/03/23 15:20 45 L 13 111/46 L 99 Oxymask 02/03/23 15:14 37.0 C 99 H 15 139/69 99 Oxymask 02/03/23 11:07 36.6 C 73 20 176/89 H 94 Room Air O2 Flow Rate 02/03/23 17:07 2 02/03/23 16:30 2 02/03/23 16:30 2 02/03/23 16:00 2 02/03/23 15:40 9 02/03/23 15:30 9 02/03/23 15:50 2 02/03/23 15:20 9 02/03/23 15:14 9 02/03/23 11:07 Diagnostic Findings Lumbar Spine X-Ray 02/03/23 11:25 INTRAOPERATIVE RADIOGRAPHS CLINICAL HISTORY: Lumbar spinal fusion surgery. Fluoro time: 38 seconds. Ka,r: 22.71 mGy FINDINGS: 2 spot fluoroscopic views of the thoracolumbar spine are presented. There is evidence of multilevel laminectomy and posterior fusion throughout the thoracolumbar spine. The exact levels cannot be delineated on these fluoroscopic views. Discectomy change is noted at 2 levels, likely in the upper lumbar region. Interpedicular screws are present at several levels. The orthopedic hardware appears intact. IMPRESSION: Intraoperative images from multilevel thoracolumbar spinal fusion surgery as above. Electronically signed by: Barry Bailon M.D. 02/03/2023 5:03 PM
[2023-02-03 18:37] LABS: Appearance Urine Clear (Clear); Bacteria Urine Automated 1+ (Negative); Bilirubin Urine Negative (Negative); Blood Urine Negative (Negative); Color Urine Yellow; Epithelial Cell Urine Auto >30 /lpf (0-5); Glucose Urine UA 1+ (Negative); Ketones Urine Negative (Negative); Leukocyte Esterase Urine 1+ (Negative); Nitrite Urine Negative (Negative); Protein Urine Negative (Negative); RBC Urine Automated 0-4 /hpf (0-4); Specific Gravity Urine 1.015 (1.000-1.030); Urobilinogen Urine Negative (Negative); pH Urine 6.5 (4.5-7.5)
[2023-02-03] MEDS: ceFAZolin 2000MG 2,000 MG/15 ML SYR IV SCH (20:55)
[2023-02-03] MEDS: HYDROmorphone INJ 1 MG/ML SYRINGE IV PRN (20:57)
[2023-02-03] MEDS: MEMANTINE HCL 10 MG TAB PO SCH (21:02)
[2023-02-03] MEDS: traZODone HCL 100 MG TAB PO SCH (21:02)
[2023-02-03] MEDS: ATORVASTATIN 40 MG TAB PO SCH (21:02)
[2023-02-03] MEDS: DOCUSATE SODIUM/SENNA 50/8.6MG TAB PO SCH (21:03)
[2023-02-03] MEDS: buPROPion SR 150 MG TABCR PO SCH (21:03)
[2023-02-04] MEDS: [UNRECOGNIZED DRUG - REMARK] SCH ×3 (00:22→15:45)
[2023-02-04] MEDS: SODIUM CHLORIDE 0.9% 1000ML 1,000 ML IV SCH (02:16)
[2023-02-04] MEDS: ceFAZolin 2000MG 2,000 MG/15 ML SYR IV SCH (05:05)
[2023-02-04] MEDS: POLYETHYLENE (MIRALAX) 17 GM PACK PO SCH ×3 (05:05→17:21)
[2023-02-04] MEDS: HYDROmorphone INJ 1 MG/ML SYRINGE IV PRN ×2 (05:11→21:45)
[2023-02-04 06:47] LABS: Basophils # (auto) 0.02 K/uL (0-0.2); Basophils % (auto) 0.2 %; Hematocrit (blood only) 34.3 % (37.0-47.0); Hemoglobin 11.2 g/dl (12.0-16.0); Immature Granulocytes # (auto) 0.07 K/uL (0.01-0.20); Immature Granulocytes % (auto) 0.6 %; Lymphocytes # (auto) 1.33 K/uL (1.2-3.4); Mean Corpuscular Hgb Conc 32.7 g/dL (32.0-36.0); Mean Corpuscular Volume 88.9 fL (80.0-100.0); Monocytes # (auto) 0.61 K/uL (0.11-0.59); Neutrophils # (auto) 10.05 K/uL (1.40-6.50); Neutrophils % (auto) 83.2 %; Platelet Count 153 K/uL (130-400); RDW Coefficient of Variation 12.5 % (11.5-14.5); RDW Standard Deviation 40.2 fL (36.4-46.3); Red Blood Count 3.86 M/uL (4.20-5.40); White Blood Count 12.08 K/ul (4.8-10.8)
[2023-02-04 07:03] LABS: BUN Creatinine Ratio 18.7 (10-20); Calcium 8.3 mg/dl (8.6-10.3); Creatinine Clr Calc Pharmacy 57.5 ml/min; Est GFR (African American) 70.5 ml/min; Est GFR (Non-African American) 60.9 ml/min; Potassium 4.6 mmol/L (3.5-5.1)
[2023-02-04] MEDS: VERAPAMIL HCL 240 MG TABCR PO SCH (08:49)
[2023-02-04] MEDS: buPROPion SR 150 MG TABCR PO SCH ×2 (08:49→22:04)
[2023-02-04] MEDS: PANTOprazole 40 MG TAB PO SCH (08:49)
[2023-02-04] MEDS: OXYBUTYNIN CHLORIDE XL 5 MG TABCR PO SCH (08:49)
[2023-02-04] MEDS: LOSARTAN POTASSIUM 25 MG TAB PO SCH (08:49)
[2023-02-04] MEDS: MEMANTINE HCL 10 MG TAB PO SCH ×2 (08:49→22:04)
[2023-02-04] MEDS: dexAMETHasone 6 MG in SYRINGE 0 ML IV SCH (08:50)
--- NOTE | 2023-02-04 09:59 | Orthopedic Progress Note ---
Date of Service February 04, 2023 Assessment & Plan (1) Neurogenic claudication due to lumbar spinal stenosis: Plan: This time continue physical therapy monitor TAE output anticipate discharge home in the next few days. Admission and Anticipated Discharge Date Admission Date: February 03, 2023 Subjective Back pain controlled leg pain improved Physical Exam Physical Exam: Patient is currently in bed. She is comfortable. Skin strength testing. Results & Data Vital Signs (Past 12 Hours) Vital Signs Temp Pulse Resp BP Pulse Ox O2 Del Method O2 Flow Rate 02/04/23 09:24 88 L Room Air 02/04/23 08:56 99 Nasal Cannula 2 02/04/23 08:00 Nasal Cannula 2 02/04/23 07:07 36.6 C 70 20 119/66 97 Nasal Cannula 1 02/04/23 02:13 37.2 C 74 16 125/63 94 Nasal Cannula 2.0 02/03/23 23:03 37.2 C 76 18 150/72 H 94 Nasal Cannula 2
--- NOTE | 2023-02-04 12:44 | Hospitalist Progress Note ---
Date of Service February 04, 2023 Assessment & Plan (1) Neurogenic claudication due to lumbar spinal stenosis: (2) HTN (hypertension): (3) Dyslipidemia: (4) Diabetes mellitus type 2, diet-controlled: (5) CKD (chronic kidney disease), stage III: (6) Depression with anxiety: Plan 77 year old that presents to the [facility] for a planned elective L1-L2 decompression surgery with T11-T12 fusion under the care of Dr. Oconnell. Additional PMH includes: Diet controlled diabetes mellitus type 2, CKD stage III, HLD, HTN, anxiety and depression. Frequent UTI in her past Neurogenic claudication d/t lumbar spinal stenosis: POD#1 s/p L1-L2 Decompression and T11-T12 fusion under the care of Dr. Oconnell. Pain controlled Hb is 11.2 Preop was 12 last month Will monitor PT/OT eval Activity per Ortho Hypertension Continue losartan and verapamil Stable HLD: Continue atorvastatin H/O frequent UTI: Urine culture from 02/03/23 negative so far DM2, diet-controlled: Most recent A1c 11/21/2022: 6.7 Depression and anxiety: Continue Wellbutrin GERD: Continue Omeprazole Disposition: PCP: Dr. Sosa Code Status: Full Code VTE Prophylaxis: SCD. Ambulate I spent a total of 40 minutes coordinating, documenting and providing care for this patient excluding time spent in performance of separately billed services Admission and Anticipated Discharge Date Admission Date: February 03, 2023 Subjective Patient seen and examined. Reports surgical site pain is controlled. Stated that pain is better than prior to surgery Denies any headache, dizziness, nausea, vomiting, abdominal pain Denies dysuria, frequency, urgency or hematuria Physical Exam Constitutional: + well hydrated; no acute distress Eyes: PERRL, conjunctivae normal, anicteric sclerae ENMT: external ear and nose normal, oropharynx normal Respiratory: normal respiratory effort, lungs clear to auscultation Cardiovascular: Rate/Rhythm: regular rate and regular rhythm S1 S2 Gastrointestinal (Abdomen): normal bowel sounds, soft, nontender, no hepatosplenomegaly Musculoskeletal: Clean dressing over surgical site. Drain in situ Neurologic: PERRL, EOMI, accommodation nl, no face palsy, no dysarthria Psychiatric: A+Ox3, euthymic affect Results & Data Results & Data Vital Signs (Past 12 Hours) Vital Signs Temp Pulse Resp BP Pulse Ox O2 Del Method O2 Flow Rate 02/04/23 11:16 37.0 C 92 H 18 128/73 94 Room Air 02/04/23 09:24 88 L Room Air 02/04/23 08:56 99 Nasal Cannula 2 02/04/23 08:00 Nasal Cannula 2 02/04/23 07:07 36.6 C 70 20 119/66 97 Nasal Cannula 1 02/04/23 02:13 37.2 C 74 16 125/63 94 Nasal Cannula 2.0 Laboratory Results Abnormal lab results 02/03/23 02/03/23 02/03/23 Range/Units 15:19 16:39 18:29 WBC (4.8-10.8) K/ul RBC (4.20-5.40) M/uL Hgb (12.0-16.0) g/dl Hct (37.0-47.0) % Neut # (Auto) (1.40-6.50) K/uL Pender # (Auto) (0.11-0.59) K/uL Glucose (70-99(Fasting)) mg/dl POC Glucose 233 H 193 H (70-99) mg/dl Calcium (8.6-10.3) mg/dl Urine Glucose (UA) 1+ H (Negative) Ur Leukocyte Esterase 1+ H (Negative) Urine WBC (Auto) 10-30 H (0-5) /hpf U Epithel Cells (Auto) >30 H (0-5) /lpf Urine Bacteria (Auto) 1+ H (Negative) 02/04/23 02/04/23 Range/Units 06:20 06:20 WBC 12.08 H (4.8-10.8) K/ul RBC 3.86 L (4.20-5.40) M/uL Hgb 11.2 L (12.0-16.0) g/dl Hct 34.3 L (37.0-47.0) % Neut # (Auto) 10.05 H (1.40-6.50) K/uL Pender # (Auto) 0.61 H (0.11-0.59) K/uL Glucose 114 H (70-99(Fasting)) mg/dl POC Glucose (70-99) mg/dl Calcium 8.3 L (8.6-10.3) mg/dl Urine Glucose (UA) (Negative) Ur Leukocyte Esterase (Negative) Urine WBC (Auto) (0-5) /hpf U Epithel Cells (Auto) (0-5) /lpf Urine Bacteria (Auto) (Negative)
[2023-02-04] MEDS: oxyCODONE HCL IR 5 MG TAB (IMMEDIATE RELEASE) PO PRN ×2 (13:05→18:17)
[2023-02-04] MEDS: CHECK BUPRENORPHINE PATCH SCH (15:45)
[2023-02-04] MEDS ORDERED: cefTRIAXone SODIUM 1,000 MG in DEXTROSE 5% AD-VAN 50 ML IV SCH (20:45)
[2023-02-04] MEDS: cefTRIAXone SODIUM 2,000 MG in DEXTROSE 5% 50 ML IV SCH (21:45)
[2023-02-04] MEDS: ATORVASTATIN 40 MG TAB PO SCH (22:03)
[2023-02-04] MEDS: DOCUSATE SODIUM/SENNA 50/8.6MG TAB PO SCH (22:04)
[2023-02-04] MEDS: traZODone HCL 100 MG TAB PO SCH (22:04)
[2023-02-05] MEDS: CHECK BUPRENORPHINE PATCH SCH ×3 (00:10→18:05)
[2023-02-05] MEDS: [UNRECOGNIZED DRUG - REMARK] SCH ×3 (00:10→15:51)
[2023-02-05] MEDS: POLYETHYLENE (MIRALAX) 17 GM PACK PO SCH ×4 (01:15→18:05)
--- NOTE | 2023-02-05 06:08 | Electrocardiogram Report ---
Test Reason : Blood Pressure : / mmHG Vent. Rate : 073 BPM Atrial Rate : 071 BPM P-R Int : 126 ms QRS Dur : 132 ms QT Int : 430 ms P-R-T Axes : 002 -16 018 degrees QTc Int : 473 ms Poor data quality, interpretation may be adversely affected Probable Sinus rhythm When compared with ECG of 09-JAN-2023 13:19, current ECG has more extensive artifact Confirmed by Abhijit Granger ([id number]) on 02/05/2023 6:07:47 AM Referred By: Diogo Oconnell Confirmed By:Abhijit Granger
[2023-02-05 07:03] LABS: Hematocrit (blood only) 29.2 % (37.0-47.0); Hemoglobin 9.5 g/dl (12.0-16.0); Mean Corpuscular Hemoglobin 28.8 pg (25.0-34.0); Mean Corpuscular Hgb Conc 32.5 g/dL (32.0-36.0); Mean Corpuscular Volume 88.5 fL (80.0-100.0); Mean Platelet Volume 10.1 fL (9.4-12.4); Platelet Count 142 K/uL (130-400); RDW Coefficient of Variation 12.9 % (11.5-14.5); RDW Standard Deviation 41.4 fL (36.4-46.3); White Blood Count 11.99 K/ul (4.8-10.8)
[2023-02-05 07:18] LABS: Calcium 8.5 mg/dl (8.6-10.3); Creatinine Clr Calc Pharmacy 52.4 ml/min; Est GFR (African American) 62.9 ml/min; Est GFR (Non-African American) 54.3 ml/min; Potassium 4.7 mmol/L (3.5-5.1)
--- NOTE | 2023-02-05 08:52 | Orthopedic Progress Note ---
Date of Service February 05, 2023 Assessment & Plan (1) Neurogenic claudication due to lumbar spinal stenosis: Plan: At this time we will continue physical therapy monitor TAE output anticipate discharge tomorrow. Admission and Anticipated Discharge Date Admission Date: February 03, 2023 Subjective Back pain is controlled leg pain markedly improved Physical Exam Physical Exam: Patient is sitting up at the bedside. Is good strength testing. Patient comfortable. Results & Data Vital Signs (Past 12 Hours) Vital Signs Temp Pulse Resp BP Pulse Ox O2 Del Method 02/05/23 07:23 36.6 C 65 18 105/62 98 Room Air 02/04/23 22:05 Room Air 02/04/23 20:57 37.1 C 73 16 167/78 H 99 Room Air
[2023-02-05] MEDS: PANTOprazole 40 MG TAB PO SCH (08:59)
[2023-02-05] MEDS: VERAPAMIL HCL 240 MG TABCR PO SCH (08:59)
[2023-02-05] MEDS: LOSARTAN POTASSIUM 25 MG TAB PO SCH (08:59)
[2023-02-05] MEDS: OXYBUTYNIN CHLORIDE XL 5 MG TABCR PO SCH (09:00)
[2023-02-05] MEDS: buPROPion SR 150 MG TABCR PO SCH ×2 (09:00→22:41)
[2023-02-05] MEDS: dexAMETHasone 6 MG in SYRINGE 0 ML IV SCH (09:00)
[2023-02-05] MEDS: MEMANTINE HCL 10 MG TAB PO SCH ×2 (09:00→22:43)
--- NOTE | 2023-02-05 12:54 | Hospitalist Progress Note ---
Date of Service February 05, 2023 Assessment & Plan (1) Neurogenic claudication due to lumbar spinal stenosis: (2) HTN (hypertension): (3) Dyslipidemia: (4) Diabetes mellitus type 2, diet-controlled: (5) CKD (chronic kidney disease), stage III: (6) Depression with anxiety: Plan 77 year old that presents to the [facility] for a planned elective L1-L2 decompression surgery with T11-T12 fusion under the care of Dr. Oconnell. Additional PMH includes: Diet controlled diabetes mellitus type 2, CKD stage III, HLD, HTN, anxiety and depression. Frequent UTI in her past Neurogenic claudication d/t lumbar spinal stenosis: POD#2 s/p L1-L2 Decompression and T11-T12 fusion under the care of Dr. Oconnell. Pain controlled Hb is 9.5 Preop was 12 last month Has Post operative anemia likely due to blood loss Will monitor PT/OT eval Activity per Ortho Hypertension Continue losartan and verapamil Stable HLD: Continue atorvastatin H/O frequent UTI: Urine culture from 02/03/23 negative so far DM2, diet-controlled: Most recent A1c 11/21/2022: 6.7 Depression and anxiety: Continue Wellbutrin GERD: Continue Omeprazole Disposition: PCP: Dr. Sosa Code Status: Full Code VTE Prophylaxis: SCD. Ambulate I spent a total of 40 minutes coordinating, documenting and providing care for this patient excluding time spent in performance of separately billed services Admission and Anticipated Discharge Date Admission Date: February 03, 2023 Subjective Patient seen and examined Reports surgical site pain is well controlled Has not had a BM yet Passing flatus Denied cough, chest pain, SOB, dysuria, freq, urgency, hematuria Physical Exam Constitutional: + well hydrated; no acute distress Eyes: PERRL, conjunctivae normal, anicteric sclerae ENMT: external ear and nose normal, oropharynx normal Respiratory: normal respiratory effort, lungs clear to auscultation Cardiovascular: Rate/Rhythm: regular rate and regular rhythm S1 S2 Gastrointestinal (Abdomen): normal bowel sounds, soft, nontender, no hepatosplenomegaly Musculoskeletal: Clean dressing voer surgical site with drain in situ Neurologic: PERRL, EOMI, accommodation nl, no face palsy, no dysarthria Psychiatric: A+Ox3, euthymic affect Results & Data Results & Data Vital Signs (Past 12 Hours) Vital Signs Temp Pulse Resp BP Pulse Ox O2 Del Method 02/05/23 07:23 36.6 C 65 18 105/62 98 Room Air Laboratory Results Abnormal lab results 02/05/23 02/05/23 Range/Units 06:32 06:32 WBC 11.99 H (4.8-10.8) K/ul RBC 3.30 L (4.20-5.40) M/uL Hgb 9.5 L (12.0-16.0) g/dl Hct 29.2 L (37.0-47.0) % BUN 27 H (6-23) mg/dl BUN/Creatinine Ratio 27.0 H (10-20) Glucose 139 H (70-99(Fasting)) mg/dl Calcium 8.5 L (8.6-10.3) mg/dl
[2023-02-05] MEDS: oxyCODONE HCL IR 5 MG TAB (IMMEDIATE RELEASE) PO PRN ×2 (13:23→22:13)
[2023-02-05] MEDS: cefTRIAXone SODIUM 2,000 MG in DEXTROSE 5% 50 ML IV SCH ×2 (22:16→23:58)
[2023-02-05] MEDS: ATORVASTATIN 40 MG TAB PO SCH (22:40)
[2023-02-05] MEDS: DOCUSATE SODIUM/SENNA 50/8.6MG TAB PO SCH (22:42)
[2023-02-05] MEDS: traZODone HCL 100 MG TAB PO SCH (22:42)
[2023-02-06] MEDS: POLYETHYLENE (MIRALAX) 17 GM PACK PO SCH ×3 (00:30→11:53)
[2023-02-06] MEDS: [UNRECOGNIZED DRUG - REMARK] SCH ×2 (03:35→08:15)
[2023-02-06] MEDS: CHECK BUPRENORPHINE PATCH SCH ×2 (03:35→08:15)
[2023-02-06] MEDS: oxyCODONE HCL IR 5 MG TAB (IMMEDIATE RELEASE) PO PRN ×2 (06:03→12:10)
[2023-02-06 07:26] LABS: Hematocrit (blood only) 28.6 % (37.0-47.0); Hemoglobin 9.1 g/dl (12.0-16.0); Mean Corpuscular Hemoglobin 28.7 pg (25.0-34.0); Mean Corpuscular Hgb Conc 31.8 g/dL (32.0-36.0); Mean Corpuscular Volume 90.2 fL (80.0-100.0); Mean Platelet Volume 10.1 fL (9.4-12.4); Platelet Count 138 K/uL (130-400); RDW Standard Deviation 42.6 fL (36.4-46.3); Red Blood Count 3.17 M/uL (4.20-5.40); White Blood Count 12.03 K/ul (4.8-10.8)
[2023-02-06] MEDS: MEMANTINE HCL 10 MG TAB PO SCH (08:15)
[2023-02-06] MEDS: OXYBUTYNIN CHLORIDE XL 5 MG TABCR PO SCH (08:16)
[2023-02-06] MEDS: buPROPion SR 150 MG TABCR PO SCH (08:16)
[2023-02-06] MEDS: LOSARTAN POTASSIUM 25 MG TAB PO SCH (08:16)
[2023-02-06] MEDS: PANTOprazole 40 MG TAB PO SCH (08:16)
[2023-02-06] MEDS: dexAMETHasone 6 MG in SYRINGE 0 ML IV SCH (08:18)
[2023-02-06] MEDS: VERAPAMIL HCL 240 MG TABCR PO SCH (08:22)
[2023-02-06] MEDS ORDERED: BUPRENORPHINE 7.5 MCG/HR TD SCH (09:00)
--- NOTE | 2023-02-06 09:33 | Discharge Summary ---
Date of Service February 06, 2023 Admission HPI Per Admitting Provider This is a 77-year-old female who presents with chronic persistent back and leg pain and failing since course of nonoperative care is here for surgical invention. Principal Diagnosis Lumbar spinal stenosis with neurogenic claudication Discharge Data Allergies Allergy/AdvReac Type Severity Reaction Status Date / Time duloxetine [From Cymbalta] Allergy Unknown Unknown Verified 02/03/23 10:56 pregabalin AdvReac Intermediate Edema Verified 02/03/23 10:56 (knees to feet) fluticasone [From Flonase] AdvReac Mild Nausea Verified 02/03/23 10:56 Consultations 02/03/23 16:15 Consult Hospitalist Routine Procedures Performed Operation Date: 02/03/23 11:25 Actual Procedures p L1-L2 Decompression, T11-L2 Fusion (Connecting to the Existing Hardware), Spinal Cord Monitoring(Not Applicable) - Diogo Oconnell DO Ordered Studies 02/03/23 11:25 [place] lumbar spine 2-3V Routine Hospital Course (1) Neurogenic claudication due to lumbar spinal stenosis: Patient 1 lumbar depression patient tolerated this well was taken to orthopedic for postop labor postop and when she was up and ambulating progress postop day #2 and postoperative day #3 pain was well controlled. Excellent strength testing. Subsequently discharged home. Discharge orders instructions from the chart for further review. Total Time Total Time Spent Total Time Spent (In Minutes): 20 minutes Discharge Plan Discharge Items Patient Disposition: Home - Self-Care Reason For Visit: POSTOP Discharge Diagnosis: Lumbar spinal stenosis with neurogenic claudication Activity: As commented below Non-emergency contact: Primary Care Provider Call non-emergency contact if: you have any medication questions Follow-up/Referrals: Josseline Sosa DO [Primary Care Provider] - Diet: Regular Addtl Attending Provider Instructions: ACTIVITY RECOMMENDATIONS: SELF CARE INSTRUCTIONS AFTER THORACIC/LUMBAR FUSIONS 1. You may walk to your tolerance. It is good exercise for your legs and back. Expect some back and intermittent leg aches and pains. 2. You may perform "counter-top" level activities (make a sandwich, loretta with a project, etc.). 3. No bending or lifting of more than 10 pounds or back twisting of any nature (roll like a log when turning in bed). 4. You may ride in a car for 20-30 minutes at a time. No driving until after your first visit with your doctor. 5. Frequent changes of position and restricting sitting to 30 minutes at a time will help limit the amount of back spasms and stiffness you may experience. 6. You may discontinue the use of ambulatory aids (cane, crutches, etc.) once your strength and confidence allow. 7. You may mainspring former the shower and let water strike your incision when you arrive home at least once daily. Do not take a tub bath, sit in a hot tub or go into a swimming pool until after your first recheck in the office. SPECIAL CARE INSTRUCTIONS: VERY IMPORTANT TO READ AND REVIEW A. Your surgical incision has been closed with a cosmetic suture under the skin that will dissolve in about 6 weeks. In 14 days, you can use a pair of clean scissors and cut the suture that is left outside of the skin at the ends of your incision. 1. The small skin tapes can be removed 7 days after surgery if they have not fallen off by that point. 2. You may keep the wound open to air as much as possible to promote healing after post-op day number 5 unless told otherwise by your doctor. 3. If you think the wound looks like it is becoming infected (redness or worsening drainage) and/or you are experiencing fever, chill or worsening back pain and muscle spasms, contact the office so that we may evaluate you as soon as possible. B. Complications are uncommon, but please contact us if you have any signs or symptoms of: 1. wound infection (fever higher than 102.5 degrees F, redness, separation of wound, drainage, or increasing pain from the incision) 2. blood clots in legs (pain, swelling, redness and warmth in legs) 3. urinary tract infection (fever higher than 102.5 degrees F, burning upon urination or increased frequency of urination) 4. nerve problems (inability to walk on your toes or heels, numbness, loss of bowel or bladder control) 5. any other symptoms that concern you C. Please call the office at if you have any concerns or questions about your operation or recovery. D. No smoking! Smoking drastically decreases the chance of a solid fusion. E. Do not take any anti-inflammatory medications (Indocin, Advil, Motrin, Aspirin, Naprosyn, etc.) as these may inhibit the chance of a solid fusion. Tylenol is okay to take for pain. MANAGING PAIN AFTER SPINAL SURGERY 1. Narcotic medication is intended for short-term use and will be provided for surgical pain. Surgical pain usually lasts for a period of 4-6 weeks. Narcotic medication includes Percocet, Vicodin, Darvocet, Tylenol #3 or Lortab. 2. Longer-term pain is more appropriately treated with non-narcotic medication such as Tylenol ES. 3. Muscle spasm is not appropriately treated with narcotics. Muscle relaxers such as Soma, Flexeril or Skelaxin can be used along with Tylenol ES. 4. Remember that we all live with some "aches and pains". This is not unusual or uncommon after an injury or as we get older. a. Back pain is expected and may include muscle spasms for 4 to 6 weeks after surgery. The pain should gradually improve. If the pain worsens for no apparent reason, please contact the office. b. Intermittent leg pain may also be experienced and should not be concerned about unless it worsens for no apparent reason. If so, please contact the office. 5. We will provide appropriate medication within the normal guidelines of their prescribed use. We will also be very cautious and aware of potential abuse and extended duration of patients' medication needs. a. Pain medications are for your comfort and to assist with sleep and rest so that the tissue can heal. They are not provided in order to return to normal activity and should not be used through the day. To do so or worsening pain at night can result from ongoing tissue damage and development of tolerance to the prescribed medicine. 6. Please allow 2-3 days to process refills. Prescriptions will not be mailed but must be picked up at the office. FOLLOW UP VISIT: Keep your scheduled follow-up appointment. Any questions, please call the office at . Pending Studies at Discharge: No Stand-Alone Forms: My [employer], Smoking Cessation Medications and [place] Order Prescriptions: New tramadol 50 mg tablet 50 mg PO Q6H PRN (Reason: pain, moderate) Qty: 30 0RF oxycodone 5 mg tablet 5 mg PO Q6H PRN (Reason: pain) Qty: 30 0RF Continued atorvastatin [Lipitor] 40 mg tablet 80 mg PO HS bupropion HCl [Wellbutrin SR] 150 mg tablet sustained-release 12 hr 150 mg PO BID meloxicam [Mobic] 15 mg tablet 15 mg PO QAM sumatriptan succinate [Imitrex] 50 mg Tablet 50 mg PO DIRECTED PRN (Reason: Migraine Headache) trazodone 100 mg tablet 100 mg PO HS omeprazole 20 mg capsule,delayed release(DR/EC) 20 mg PO QAM verapamil [Calan SR] 240 mg tablet extended release 240 mg PO QAM losartan [Cozaar] 25 mg tablet 25 mg PO QAM acetaminophen [Tylenol Extra Strength] 500 mg Tablet 500 mg PO Q6H PRN (Reason: Pain) oxybutynin chloride 10 mg Tablet Extended Release 24hr 10 mg PO QAM buprenorphine 7.5 mcg/hour Patch Weekly 1 patch TRANSDERMAL Q7D Rx Instructions: change on thursday night memantine [Namenda] 10 mg Tablet 10 mg PO BID Discharge Orders: Discharge Order (Routine); Ordered 02/06/23 Ordered By: Diogo Oconnell Admission Data Admit Date/Time: 02/03/23 14:56 Attending Provider: Diogo Oconnell Admit Provider: Diogo Oconnell Primary Care Provider: Josseline Sosa Other Providers: Lesvia Spain ; Sara Abreu I.
== END 2023-02-06 12:37 | disposition home or self-care (01) | DRG 454 ==
LOC: ASU 10:16 → 3E 14:56

== ENCOUNTER 2024-11-23 08:56 | Inpatient (IN) ==
--- NOTE | 2024-11-10 08:50 | PAT Medication Instructions ---
Medication Instructions Date of Service November 10, 2024 Home Medications atorvastatin 40 mg tablet (Lipitor) 80 mg PO HS meloxicam 15 mg tablet (Mobic) 15 mg PO QAM omeprazole 20 mg capsule,delayed release 20 mg PO QAM sumatriptan succinate 50 mg tablet (Imitrex) 50 mg PO DIRECTED PRN Migraine Headache trazodone 100 mg tablet 100 mg PO HS verapamil 240 mg tablet,extended release (Calan SR) 240 mg PO QAM losartan 25 mg tablet (Cozaar) 25 mg PO QAM acetaminophen 500 mg tablet (Tylenol Extra Strength) 500 mg PO Q6H PRN Pain buprenorphine 7.5 mcg/hour weekly transdermal patch 1 patch transdermal Q7D oxybutynin chloride 10 mg tablet,extended release 24 hr 10 mg PO QAM Vitamin D3 1 tab PO QAM iron 1 tab PO QAM Continue as directed buprenorphine 7.5 mcg/hour weekly transdermal patch 1 patch transdermal Q7D (Avoid placement near surgery site prior to surgery) ASK your surgeon for instructions meloxicam 15 mg tablet (Mobic) 15 mg PO QAM DO NOT take the morning of surgery losartan 25 mg tablet (Cozaar) 25 mg PO QAM oxybutynin chloride 10 mg tablet,extended release 24 hr 10 mg PO QAM Vitamin D3 1 tab PO QAM iron 1 tab PO QAM Take morning of surgery With a small sip of water, OTHERWISE NOTHING TO EAT OR DRINK AFTER MIDNIGHT: omeprazole 20 mg capsule,delayed release 20 mg PO QAM sumatriptan succinate 50 mg tablet (Imitrex) 50 mg PO DIRECTED PRN Migraine Headache (if needed) verapamil 240 mg tablet,extended release (Calan SR) 240 mg PO QAM acetaminophen 500 mg tablet (Tylenol Extra Strength) 500 mg PO Q6H PRN Pain (if needed) Take evening before surgery atorvastatin 40 mg tablet (Lipitor) 80 mg PO HS sumatriptan succinate 50 mg tablet (Imitrex) 50 mg PO DIRECTED PRN Migraine Headache (if needed) trazodone 100 mg tablet 100 mg PO HS acetaminophen 500 mg tablet (Tylenol Extra Strength) 500 mg PO Q6H PRN Pain (if needed) Other Notes If you have any questions please call us at [phone] or [phone] or [phone] or [phone]
--- NOTE | 2024-11-11 14:13 | Anesthesiology Consultation ---
Date of Service November 11, 2024 Assessment & Plan (1) Encounter for pre-operative examination: - check BSG am DOS. - awaiting surgeon ordered medical clearance, Murali Rico 11/14/24. Chart Review Chart Review: Pending: Refer to Additional Notes / Consult section and Patient seen in Pre Admission Testing Teaching & Discussion Pre-Anesthesia Teaching/Discussion Notes: Instructed NPO after midnight before surgery, except medications with 15 cc of water. Medication instructions provided according to the PAT guidelines. History Surgery Operation Date: 11/23/24 10:25 Proposed Procedures p T10-T11 Decompression and Fusion Connecting to Hardware T11 with Spinal Cord Monitoring - Diogo Oconnell, Height/Weight Height: 5 ft 4.5 in Weight: 80.8 kg Allergies Allergy/AdvReac Type Severity Reaction Status Date / Time duloxetine [From Cymbalta] Allergy Unknown Unknown Verified 11/10/24 07:41 pregabalin AdvReac Intermediate Edema Verified 11/10/24 07:41 (knees to feet) fluticasone [From Flonase] AdvReac Mild Nausea Verified 11/10/24 07:41 Medications Home Medications Medication Instructions Recorded Confirmed Last Taken atorvastatin 40 mg tablet (Lipitor) 80 mg PO HS 09/01/18 11/10/24 02/02/23 20:00 meloxicam 15 mg tablet (Mobic) 15 mg PO QAM 09/01/18 11/10/24 01/28/23 09:00 omeprazole 20 mg capsule,delayed 20 mg PO QAM 09/01/18 11/10/24 02/03/23 09:00 release sumatriptan succinate 50 mg tablet 50 mg PO DIRECTED PRN Migraine 09/01/18 11/10/24 12/17/20 (Imitrex) Headache trazodone 100 mg tablet 100 mg PO HS 09/01/18 11/10/24 02/02/23 21:00 verapamil 240 mg tablet,extended 240 mg PO QAM 09/01/18 11/10/24 02/03/23 09:00 release (Calan SR) losartan 25 mg tablet (Cozaar) 25 mg PO QAM 03/23/19 11/10/24 02/02/23 09:00 acetaminophen 500 mg tablet 500 mg PO Q6H PRN Pain 03/09/21 11/10/24 02/02/23 13:00 (Tylenol Extra Strength) oxybutynin chloride 10 mg 10 mg PO QAM 01/27/23 11/10/24 02/02/23 09:00 tablet,extended release 24 hr Vitamin D3 1 tab PO QAM 11/10/24 11/10/24 Unknown iron 1 tab PO QAM 11/10/24 11/10/24 Unknown buprenorphine 20 mcg/hour weekly 1 patch transdermal Q7D 11/11/24 11/11/24 Unknown transdermal patch ondansetron HCl 8 mg tablet 8 mg PO Q8H migraine 11/11/24 11/11/24 Unknown venlafaxine 75 mg tablet 75 mg PO QAM 11/11/24 11/11/24 Unknown Additional Notes: Patient was instructed and it was written on provided medication instructions she can continue prn zofran and regular venlafaxine. She verbalized understanding and denied questions, concerns or additional medications. Past Medical History Medical History Anemia Anxiety Chronic back pain CKD (chronic kidney disease), stage III Depression Diabetes diet controlled Dyslipidemia Esophageal stricture s/p esophageal dilation years ago, no recent issues Frequent UTI Hx frequent UTIs > sepsis x2, no current/recent UTI/urinary issues GERD (gastroesophageal reflux disease) Well controlled, stable History of COVID-19 (~07/2024) 07/2024- covid pneumonia; no hosp; resolved History of kidney stones History of skin cancer s/p excision HTN (hypertension) controlled, stable per pt Hx of hydronephrosis Migraine Neurogenic claudication due to lumbar spinal stenosis Patient denies h/o stroke, seizures, heart attack, heart failure, blood clots/DVTs or blood transfusions. Exercise / Class Metabolic Activity II 4-5 Yardwork/Stairs/Walk up hill (denies chest discomfort or shortness of breath with one flight of stairs) Past Family History Family History Brother Myocardial infarction, Onset Age: 46 Fatal Diabetes 4 BROTHERS WITH THIS Mother Parkinson's disease Father Multiple sclerosis Past Surgical History Surgical History H/O bladder repair surgery H/O repair of left rotator cuff H/O: hysterectomy History of back surgery 3 lumbar surgeries-2 fusions; SI joint fusion History of blepharoplasty bilat History of cataract surgery R/L History of colonoscopy History of cystoscopy B/L stents (since removed) History of esophagogastroduodenoscopy (EGD) History of hip replacement R/L History of nasal surgery History of surgery bladder stimulator-embedded in right buttocks-PAT RN advised patient to bring remote DOS History of surgery on left wrist History of tooth extraction Hx of fusion of cervical spine "Good ROM" per patient Past Anesthesia History No Hx of Anesthesia Complications and No Family Hx of Anesthesia Complications History of PONV No Hx of PONV and No Hx of Motion Sickness Social History Smoking Status: Never smoker Do You Dip or Chew Tobacco: No Hx Alcohol Use: No Hx Substance Use: No substance use type: does not use Review of Systems Patient denies chest pain, shortness of breath, dyspnea on exertion, snoring, witnessed apneas, fever, chills, cough, wheezing, or palpitations. Physical Exam Vital Signs Vitals BP 103/66 P 65 TEMP 97.7 SP02 95% on RA RESP 18 Physical Patient resting comfortably in chair in no acute distress, alert and oriented, responding appropriately throughout visit Limited cervical extension range of motion without pain TMD 3.5 finger breadths Mallampati Score 3 Dentition: several caps and permanent bridge right upper front, denies chipped or loose teeth, crowns, implants Lungs: normal respiratory effort. Good air movement, clear throughout to auscultation, no adventitious breath sounds Cardiac: regular rate and rhythm, no murmurs noted Carotid arteries: negative bruit bilat Lab Results Anesthesia Preop Results Results Anesthesia Widget: WBC 9.48 K/ul (4.8-10.8) 11/11/24 Hgb 13.1 g/dl (12.0-16.0) 11/11/24 Hct 40.3 % (37.0-47.0) 11/11/24 Plt 159 K/uL (130-400) 11/11/24 Na 141 mmol/L (136-145) 11/11/24 K 4.7 mmol/L (3.5-5.1) 11/11/24 Cl 107 mmol/L (98-107) 11/11/24 CO2 31 mmol/L (21-32) 11/11/24 BUN 26 mg/dl (6-23) H 11/11/24 Creat 1.17 mg/dl (0.6-1.2) 11/11/24 Glucose Level 180 mg/dl (70-99(Fasting)) H 11/11/24 PT 10.9 Seconds (9.0-12.0) 11/11/24 PTT 25 Seconds (21-31) 11/11/24 INR 1.0 (0.9-1.1) 11/11/24 HA1c 6.8 % (4.5-5.6) H 11/11/24 Urine Color Yellow 11/11/24 Urine Appearance Turbid (Clear) A 11/11/24 Urine pH 5.5 (4.5-7.5) 11/11/24 Urine Specific [place] 1.029 (1.000-1.030) 11/11/24 Urine Protein Trace (Negative) H 11/11/24 Urine Glucose (UA) Negative (Negative) 11/11/24 Urine Ketones Trace (Negative) H 11/11/24 Urine Blood Trace (Negative) H 11/11/24 Urine Nitrite Positive (Negative) A 11/11/24 Urine Bilirubin Negative (Negative) 11/11/24 Urine Urobilinogen Negative (Negative) 11/11/24 Urine Leukocyte Esterase 2+ (Negative) H 11/11/24 Urine WBC (Auto) >50 /hpf (0-5) H 11/11/24 Urine RBC (Auto) >20 /hpf (0-2) H 11/11/24 Urine Hyaline Casts (Auto) 11-20 /lpf (0-2) H 11/11/24 Urine Epithelial Cells (Auto) >20 /hpf (0-2) H 11/11/24 Urine Bacteria (Auto) 4+ (None Seen) H 11/11/24 Blood Type A Positive 11/11/24 Antibody Screen NEGATIVE 11/11/24 Testing Laboratory Results Surgeon's office made aware of abnormal UA. I also contacted her PCP and relayed abnormal UA results-they will follow-up with patient for further management. Electrocardiogram Date: 11/11/24 NSR, rate 66 bpm Left axis deviation RBBB Inferior infarct, age undetermined When compared with 02/03/23 EKG, less artifact is now present Chest X-Ray Date: 11/11/24 Stable mild cardiomegaly without pulmonary vascular congestion. Stable mild elevation of the left hemidiaphragm. No consolidation or pleural effusion. Stable lower cervical and lower thoracic metallic spinal fusion. IMPRESSION: No acute findings.
[~2024-11-23 08:56] MED LIST changes: -ACETAMINOPHEN 500 MG TAB PO SCH; +ALLERGY Noted to ORDERED Medication SCH; -CeleBREX 200 MG CAP PO SCH; +DEXAMETHASONE SOD INJ 4 MG/ML VIAL ONE; -GABAPENTIN 300 MG CAP PO SCH; +GLYCOPYRROLATE 0.2 MG/ML VIAL ONE; +LIDOCAINE 2% 2 ML VIAL/AMP(20MG/ML) INFIL ONE; -LR 15ML/HR IV SCH; -LR 60ML/HR IV SCH; +MIDAZOLAM HCL 1 MG/ML 2ML VIAL ONE; +ONDANSETRON INJ 2 MG/ML 2 ML VIAL ONE; +PROPOFOL IV EMULSION 10 MG/ML 20 ML VIAL IV ONE; +ROCURONIUM BROMIDE 10 MG/ML 5 ML VIAL IV ONE; +SUGAMMADEX SODIUM 200 MG/2 ML VIAL IV ONE; -ceFAZolin 2000MG 2,000 MG/15 ML SYR IV SCH; +fentaNYL citrate PF 100 MCG/2 ML VIAL ONE
[2024-11-23] MEDS: ACETAMINOPHEN 500 MG TAB PO SCH (09:43)
[2024-11-23] MEDS: LR 15ML/HR IV SCH (09:43)
[2024-11-23] MEDS: CeleBREX 200 MG CAP PO SCH (09:43)
[2024-11-23] MEDS: LR 60ML/HR IV SCH (09:44)
[2024-11-23] MEDS ORDERED: PROMETHAZINE HCL 6.25 MG in SODIUM CHLORIDE 0.9% 50 ML IV PRN (10:02)
[2024-11-23] MEDS ORDERED: ePHEDrine sulfate 50 MG/ML AMP IV PRN (10:02)
[2024-11-23] MEDS ORDERED: ATROPINE SULFATE 0.1 MG/ML 10ML SYR IV PRN (10:02)
--- NOTE | 2024-11-23 10:32 | History & Physical Bridge Note ---
Date of Service November 23, 2024 History & Physical Bridge Note I have examined the patient, reviewed the History & Physical and in the interval since the performance of the History & Physical I have noted the following changes of clinical significance: no changes noted
--- NOTE | 2024-11-23 10:34 | History & Physical Report ---
Date of Service November 23, 2024 Assessment & Plan (1) Myelopathy concurrent with and due to spinal stenosis of thoracic region: Plan: T10-T11 decompression fusion, connecting to hardware at T11 History of Present Illness Chief Complaint: Back and leg pain Primary Care Provider: Sebastian Buckley MD 79-year-old female with chronic persistent back and leg pain after failing course of nonoperative care is here for surgical management. Allergies Allergy/AdvReac Type Severity Reaction Status Date / Time duloxetine [From Cymbalta] Allergy Unknown Unknown Verified 11/23/24 09:16 pregabalin AdvReac Intermediate Edema Verified 11/23/24 09:16 (knees to feet) fluticasone [From Flonase] AdvReac Mild Nausea Verified 11/23/24 09:16 Home Medications Medication Instructions Recorded Confirmed Type atorvastatin 40 mg tablet (Lipitor) 80 mg PO HS 09/01/18 11/23/24 History meloxicam 15 mg tablet (Mobic) 15 mg PO QAM 09/01/18 11/23/24 History omeprazole 20 mg capsule,delayed 20 mg PO QAM 09/01/18 11/23/24 History release sumatriptan succinate 50 mg tablet 50 mg PO DIRECTED PRN Migraine 09/01/18 11/23/24 History (Imitrex) Headache trazodone 100 mg tablet 100 mg PO HS 09/01/18 11/23/24 History verapamil 240 mg tablet,extended 240 mg PO QAM 09/01/18 11/23/24 History release (Calan SR) losartan 25 mg tablet (Cozaar) 25 mg PO QAM 03/23/19 11/23/24 History acetaminophen 500 mg tablet 500 mg PO Q6H PRN Pain 03/09/21 11/23/24 History (Tylenol Extra Strength) oxybutynin chloride 10 mg 10 mg PO QAM 01/27/23 11/23/24 History tablet,extended release 24 hr Vitamin D3 1 tab PO QAM 11/10/24 11/23/24 History iron 1 tab PO QAM 11/10/24 11/23/24 History buprenorphine 20 mcg/hour weekly 1 patch transdermal Q7D 11/11/24 11/23/24 History transdermal patch (Butrans) ondansetron HCl 8 mg tablet 8 mg PO Q8H PRN migraine 11/11/24 11/23/24 History venlafaxine 75 mg tablet 75 mg PO QAM 11/11/24 11/23/24 History Past Med/Surg History Problem List (Updated 11/23/24 @ 10:34 by Diogo Oconnell, ) Myelopathy concurrent with and due to spinal stenosis of thoracic region Neurogenic claudication due to lumbar spinal stenosis Depression with anxiety CKD (chronic kidney disease), stage III Incontinence Anemia Encounter for pre-operative examination Anxiety (Chronic) HTN (hypertension) Dyslipidemia Diabetes mellitus type 2, diet-controlled Diet controlled Medical History Anemia Anxiety Chronic back pain CKD (chronic kidney disease), stage III Depression Diabetes diet controlled Dyslipidemia Esophageal stricture s/p esophageal dilation years ago, no recent issues Frequent UTI Hx frequent UTIs > sepsis x2, no current/recent UTI/urinary issues GERD (gastroesophageal reflux disease) Well controlled, stable History of COVID-19 (~07/2024) 07/2024- covid pneumonia; no hosp; resolved History of kidney stones History of skin cancer s/p excision HTN (hypertension) controlled, stable per pt Hx of hydronephrosis Migraine Neurogenic claudication due to lumbar spinal stenosis Surgical History H/O bladder repair surgery H/O repair of left rotator cuff H/O: hysterectomy History of back surgery 3 lumbar surgeries-2 fusions; SI joint fusion History of blepharoplasty bilat History of cataract surgery R/L History of colonoscopy History of cystoscopy B/L stents (since removed) History of esophagogastroduodenoscopy (EGD) History of hip replacement R/L History of nasal surgery History of surgery bladder stimulator-embedded in right buttocks-PAT RN advised patient to bring remote DOS History of surgery on left wrist History of tooth extraction Hx of fusion of cervical spine "Good ROM" per patient Family History Brother Myocardial infarction, Onset Age: 46 Fatal Diabetes 4 BROTHERS WITH THIS Mother Parkinson's disease Father Multiple sclerosis Social History Smoking Status: Never smoker Second Hand Exposure: No; Do You Dip or Chew Tobacco: No; Tobacco Cessation Education Requested by Patient: No Hx Alcohol Use: No Hx Substance Use: No Preferred Language: Cameroonian Communication Ability: Effective Student Services Director Required: No Beliefs That Will Affect Care: None marital status: Current Living Situation: Spouse Current Living Situation Comment: Home with spouse Other Information That Helps Us Care for You: No Feels Safe at Home: Yes Safety Concerns: Feels Safe At This Time Assistive Devices: Cane, Glasses and Hearing Aid - Bilateral Physical Exam Physical Exam: Patient is alert and oriented heart regular rhythm Lungs clear Results & Data Results & Data Vital Signs (Past 12 Hours) Vital Signs Temp Pulse Resp BP Pulse Ox O2 Del Method 11/23/24 09:17 36.4 C L 70 18 181/82 H 97 Room Air
[2024-11-23] MEDS: ceFAZolin 2000MG 2,000 MG/15 ML SYR IV SCH ×2 (11:28→18:21)
[2024-11-23] MEDS: BUPIVACAINE/EPINEPHRINE 0.25% 1:200,000 30 ML VIAL ONE (11:28)
[2024-11-23] MEDS ORDERED: fentaNYL citrate PF 100 MCG/2 ML VIAL ONE (11:30)
[2024-11-23] MEDS ORDERED: TRANEXAMIC ACID / 0.7% NACL 1000MG/100ML BAG IV ONE (11:38)
[2024-11-23] MEDS: FLOSEAL HEMOSTATIC MATRIX 10ML TOP ONE (12:32)
[2024-11-23] MEDS: ceFAZolin 330 MG/ML 1 GM VIAL ONE (12:32)
--- NOTE | 2024-11-23 12:50 | Operative Report ---
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 #2 exploration of fusion T11-T12. #3 excision of extradural mass T10-T11. #4 decompression with bilateral medial facetectomies foraminotomies T10-T11. #5 posterior spinal fusion T10-T11. #6 placement of posterior instrumentation using Buckley screws of T10 and connectors at T11-T12. #7 interbody fusion T10-T11. #8 placement Spira 8 x 22 mm at T10-T11. #9 placement of his collagen sponge, with Koros in the posterior lateral gutters. #10 application of versa wrap over the exposed dura. Surgeon Diogo Oconnell, Predatory Animal Exterminator Aditi Longo Estimated Blood Loss 250 Findings Consistent with Post-Op Diagnosis Specimens None Indications This is a 79-year-old female presents with severe thoracic spinal stenosis and mildly radicular complaints. Subsequent here for surgery. Description of Procedure Patient is met with identified informed consent obtained. Patient was then taken to the operative suite underwent the patient placed in prone position on the Roc table the chest pad and hip bolsters. All bony prominences well- padded eyes inspected to ensure no external precipice spinal. This point the third lumbar spine was prepped and draped in sterile fashion. Sharp dissection with the assistance of Bovie cautery from down to and exposing the lamina transverse processes of T10, instrumentation and rods of T11-T12. Then proce eded to remove the pedicle screws and connectors at T11. Explored the fusion mass between T11-12 noting it to be mature and intact. Then formed a complete laminectomy of T10 with bilateral medial facetectomies and foraminotomies followed by removal of the extradural facet cyst at T10-T11 on the left that was directly adhered to the dura. After complete decompression pedicle screws were placed in T10 bilaterally with assistance of fluoroscopy and connectors attached to the proximal kirsten between T11 and T12. By way of a transforaminal approach on the left a complete discectomy of T10-T11 was performed endplates guided to subcortical and bone and 8 x 22 mm spiral cage filled with Oxyzyme bone graft tapped in position. Proper size rods were then placed and locked in position bilaterally. Transverse processes of T10-T11. Use of cortical and bone. Infuse collagen sponge bath Koros was placed in the posterior gutters. Versa wrap placed of exposed dura. 15 round TAE drain inserted. Incision was then closed with 1 Vicryl the fascia 2-0 Vicryl subcutaneously and 4 Monocryl for final skin closure. Steri-Strips sterile dressing placed. Patient waken taken PACU stable condition. Please note spinal cord monitoring was utilized at the procedure no changes noted. Aditi Longo was present at the entire surgery while the patient positioning complex portion of the surgery and fashion closure. Im ordering 10 grams of Collagen Powder ([facility] A6010 Primary Dressing) and 10 bordered super absorbent ([facility] A6196 Secondary Dressing) to treat an incision wound that was caused by a spine procedure. The incision is approximately 2 cm(W) x 2 cm(L) down to the spinal column and epidural space 2 cm (D) in size and is a full thickness wound showing no signs of infection. Collagen comes in 1 gram packets so 10 packets were ordered. Given the size of the wound, with moderate exudate I chose to order a 10 day supply. The patient will be provided instructions for proper application of the collagen wound kit. The patient will be asked to apply the collagen powder daily and then cover it with sterile dressings dispensed. Collagen was selected as I expect the collagen to attract monocytes and fibroblasts, act as a sacrificial substrate for MMPs, and ultimately proved a matrix for tissue and vessel growth. The collagen will act as a primary dressing in this scenario. It is medically necessary for proper healing of these wounds to improve bioavailability and contact with each wound surface, this is also to help prevent infection of wounds and promote healing ultimately leading to a better healing outcome and limit the risk of infection. I attest to the content of the Intraoperative Record and any orders documented therein. Any exceptions are noted below.
[2024-11-23] MEDS ORDERED: BUPRENORPHINE TD SCH (13:05)
[2024-11-23] MEDS ORDERED: MAGNESIUM HYDROXIDE SUSP 30 ML UDC PO PRN (13:05)
[2024-11-23] MEDS ORDERED: bisacodyL 10 MG SUPP PR PRN (13:05)
[2024-11-23] MEDS ORDERED: SOD PHOSPHATE/SOD BIPHOSPHATE ENEMA 132 ML BTL PR PRN (13:05)
[2024-11-23] MEDS ORDERED: ALUMINUM/MAGNESIUM SUSP 30 ML UDC PO PRN (13:05)
[2024-11-23] MEDS ORDERED: METOCLOPRAMIDE HCL INJ 5 MG/ML 2 ML VIAL IV PRN (13:05)
[2024-11-23] MEDS ORDERED: LORazepam 2 MG/1 ML VIAL IV PRN (13:05)
[2024-11-23] MEDS ORDERED: LORazepam 0.5 MG TAB PO PRN (13:05)
[2024-11-23] MEDS ORDERED: hydrOXYzine HCl 25 MG TAB PO PRN (13:05)
[2024-11-23] MEDS ORDERED: HYDROmorphone INJ 0.5 MG/0.5 ML SYR IV PRN (13:05)
[2024-11-23] MEDS ORDERED: FAMOTIDINE 20 MG TAB PO PRN (13:05)
[2024-11-23] MEDS ORDERED: PROMETHAZINE 12.5 MG/50.5 ML BAG IV PRN (13:05)
[2024-11-23] MEDS ORDERED: ONDANSETRON 4 MG OD TAB PO PRN ×2 (13:05→14:29)
[2024-11-23] MEDS ORDERED: ACETAMINOPHEN 1,000 MG/100 ML VIAL IV PRN (13:05)
[2024-11-23] MEDS ORDERED: DO NOT ADMINISTER PNEUMOCOCCAL VACCINE PRN (13:05)
[2024-11-23] MEDS ORDERED: SUMAtriptan succinate 50 MG TAB PO PRN (13:05)
[2024-11-23] MEDS ORDERED: ONDANSETRON INJ 2 MG/ML 2 ML VIAL IV PRN (13:05)
[2024-11-23] MEDS ORDERED: NALOXONE HCL 0.4 MG/1 ML VIAL/CARP IV PRN (13:05)
[2024-11-23] MEDS ORDERED: DO NOT ADMINISTER FLU VACCINE PRN (13:05)
[2024-11-23] MEDS ORDERED: HYDROmorphone INJ 1 MG/ML SYRINGE IV PRN (13:05)
[2024-11-23] MEDS ORDERED: diphenhydrAMINE Capsule 25 MG CAP PO PRN (13:05)
[2024-11-23] MEDS: HYDROmorphone INJ 2 MG/ML SYR/VIAL IV PRN (13:28)
--- NOTE | 2024-11-23 14:26 | Fluoroscopy Report ---
FL thoracic spine 2V CLINICAL HISTORY: T10-T11 DECOMPRESSION AND FUSION COMPARISON STUDY: None FLUOROSCOPY TIME: 16 seconds FLUOROSCOPY IMAGES: 3 EXPOSURE DOSE: 4 mGy FINDINGS: Fluoroscopy was provided for spinal surgery. IMPRESSION: Intraoperative fluoroscopy. ACT 112: Negative or not required by law. Electronically signed by: Kai Dias M.D. 11/23/2024 2:25 PM
--- NOTE | 2024-11-23 14:46 | Anesthesiology Progress Note ---
Date of Service November 23, 2024 Anesthesia Post Procedure Vital Signs Vital Signs: Temp Pulse Pulse Resp BP BP Pulse Ox 11/23/24 14:30 36.3 C L 69 17 143/62 H 96 11/23/24 14:10 67 13 151/68 H 100 11/23/24 14:00 68 12 161/61 H 100 11/23/24 13:50 36.4 C L 67 12 171/69 H 99 11/23/24 13:40 65 14 162/87 H 99 11/23/24 13:30 66 15 181/71 H 100 11/23/24 13:20 67 14 181/75 H 100 11/23/24 13:10 68 12 174/70 H 100 11/23/24 13:00 65 16 160/65 H 99 11/23/24 12:58 36.5 C 68 14 169/75 H 96 11/23/24 09:17 36.4 C L 70 18 181/82 H 97 O2 Del Method O2 Flow Rate 11/23/24 14:30 Room Air 11/23/24 14:10 Nasal Cannula 2 11/23/24 14:00 Nasal Cannula 2 11/23/24 13:50 Nasal Cannula 2 11/23/24 13:40 Nasal Cannula 2 11/23/24 13:30 Oxymask 2 11/23/24 13:20 Oxymask 3 11/23/24 13:10 Oxymask 3 11/23/24 13:00 Oxymask 6 11/23/24 12:58 Oxymask 6 11/23/24 09:17 Room Air Pain Intensity Back: Pain Intensity: 4 Transfer of Care Handoff Completed per policy Notes Mental Status: alert / awake / arousable and participated in evaluation Nausea / Vomiting: adequately controlled Pain: adequately controlled Airway Patency, RR, SpO2: stable & adequate BP & HR: stable & adequate Hydration State: stable & adequate Anesthetic Complications: no major complications apparent and Pt Satisfied with anesthetic care
--- NOTE | 2024-11-23 15:04 | Consultation ---
Date of Consultation November 23, 2024 Assessment & Plan (1) Myelopathy concurrent with and due to spinal stenosis of thoracic region: (2) Depression with anxiety: (3) CKD (chronic kidney disease), stage III: (4) HTN (hypertension): (5) Dyslipidemia: (6) Diabetes mellitus type 2, diet-controlled: (7) GERD (gastroesophageal reflux disease): (8) Migraine: Plan 79 year old female with PMH significant for HTN, HLD, DMII (diet controlled), CKD III, RENATA, depression/anxiety, insomnia, GERD, lumbar spinal stenosis s/p L1- L2 decompression and T11-T12 fusion by Dr Oconnell in February 2023 with subsequent thoracic facet cyst and thoracic spinal stenosis with myelopathy who underwent T10-T11 decompression fusion connecting to hardware at T11 on 11/23/2024. She was cleared for surgery on 11/11/[address] Win. We have been consulted for post op medical management. Thoracic facet cyst Thoracic spinal stenosis with myelopathy POD#0 T10-T11 decompression fusion by Dr Oconnell Pain control, DVT prophylaxis, bowel regimen, activity per primary team Encourage incentive spirometry Hypertension Continue losartan and verapamil per home dosing Monitor BPs Hyperlipidemia Continue atorvastatin per home dosing DMII A1C 6.8 on 11/11/2024 Diet controlled CKD III Monitor labs (preop creat 1.17 on 11/11/2024) RENATA Monitor am labs for post op anemia (preop Hgb 13.1 on 11/11/2024) Continue ferrous sulfate per home dosing Depression/anxiety Continue venlafaxine per home dosing Insomnia Continue trazodone per home dosing GERD Continue PPI Migraines Continue sumatriptan PRN Patient seen in collaboration with Dr Garcia. Please see addendum. Thank you for this consultation. We will continue to follow this patient with you. [facility] via the role in [employer] - please don't hesitate to reach out with questions. Supervising Physician Co-Signing Physician Notes I have seen and discussed the case with the collaborating advanced practitioner. I agree with the above H&P. I have reviewed and confirmed the patients medical history, the findings on physical examination, and the patients diagnosis and treatment plan with Rajani MENESES and agree with the information documented. 79 year old female with thoracic spinal stenosis with myelopathy who underwent T10-T11 decompression fusion connecting to hardware at T11 on 11/23/2024. Patient is doing well post operatively and reports some postop discomfort but no other acute concerns. monitor post op labs. Analgesia, dvt ppx per primary . PT/OT. Agree with LATHE MACHINIST plan I spent a total of 15 minutes coordinating, documenting, and providing care for this patient excluding time spent in the performance of separately billed services. All of the aforementioned completed outside of collaborating with the assigned advanced practitioner for a full treatment plan. I have reviewed the advanced practitioner's documentation, and I agree with, and take responsibility for the plan of care History of Present Illness Requesting Physician: Diogo Oconnell DO Reason for Consultation: Post op medical management Attending Physician: Diogo Oconnell DO History of Present Illness 79 year old female with PMH significant for HTN, HLD, DMII (diet controlled), CKD III, depression/anxiety, insomnia, GERD, lumbar spinal stenosis s/p L1-L2 decompression and T11-T12 fusion [address] Dr Oconnell in February 2023 with subsequent thoracic facet cyst and thoracic spinal stenosis with myelopathy who underwent T10-T11 decompression fusion connecting to hardware at T11 on 11/23/2024. She was cleared for surgery on 11/11/[address] Win. We have been consulted for post op medical management. Patient was seen in her room after being assisted to the bedside commode and then the bedside chair. She reports back pain with the activity and movement but denies any pain in her legs or numbness/tingling. Denies headaches, dizziness, lightheadedness, chest pain, SOB, abdominal pain, N/V, dysuria. She is not passing gas yet but is hungry and excited to eat. Allergies Allergy/AdvReac Type Severity Reaction Status Date / Time duloxetine [From Cymbalta] Allergy Unknown Unknown Verified 11/23/24 09:16 pregabalin AdvReac Intermediate Edema Verified 11/23/24 09:16 (knees to feet) fluticasone [From Flonase] AdvReac Mild Nausea Verified 11/23/24 09:16 Home Medications Medication Instructions Recorded Confirmed Type atorvastatin 40 mg tablet (Lipitor) 80 mg PO HS 09/01/18 11/23/24 History meloxicam 15 mg tablet (Mobic) 15 mg PO QAM 09/01/18 11/23/24 History omeprazole 20 mg capsule,delayed 20 mg PO QAM 09/01/18 11/23/24 History release sumatriptan succinate 50 mg tablet 50 mg PO DIRECTED PRN Migraine 09/01/18 11/23/24 History (Imitrex) Headache trazodone 100 mg tablet 100 mg PO HS 09/01/18 11/23/24 History verapamil 240 mg tablet,extended 240 mg PO QAM 09/01/18 11/23/24 History release (Calan SR) losartan 25 mg tablet (Cozaar) 25 mg PO QAM 03/23/19 11/23/24 History acetaminophen 500 mg tablet 500 mg PO Q6H PRN Pain 03/09/21 11/23/24 History (Tylenol Extra Strength) oxybutynin chloride 10 mg 10 mg PO QAM 01/27/23 11/23/24 History tablet,extended release 24 hr Vitamin D3 1 tab PO QAM 11/10/24 11/23/24 History iron 1 tab PO QAM 11/10/24 11/23/24 History buprenorphine 20 mcg/hour weekly 1 patch transdermal Q7D 11/11/24 11/23/24 History transdermal patch (Butrans) ondansetron HCl 8 mg tablet 8 mg PO Q8H PRN migraine 11/11/24 11/23/24 History venlafaxine 75 mg tablet 75 mg PO QAM 11/11/24 11/23/24 History oxycodone 5 mg tablet 5 mg PO Q6H PRN pain #30 tabs 11/23/24 Rx tramadol 50 mg tablet 50 mg PO Q6H PRN pain, moderate 11/23/24 Rx #30 tabs Patient History Medical History (Updated 11/23/24 @ 16:10 by GIDEON Galvan) Neurogenic claudication due to lumbar spinal stenosis Encounter for pre-operative examination Neurogenic claudication due to lumbar spinal stenosis Hx of hydronephrosis Diabetes diet controlled Dyslipidemia HTN (hypertension) controlled, stable per pt CKD (chronic kidney disease), stage III Anxiety Anemia History of COVID-19 (~07/2024) 07/2024- covid pneumonia; no hosp; resolved History of skin cancer s/p excision History of kidney stones Frequent UTI Hx frequent UTIs > sepsis x2, no current/recent UTI/urinary issues Chronic back pain Depression Esophageal stricture s/p esophageal dilation years ago, no recent issues Surgical History History of blepharoplasty bilat History of surgery bladder stimulator-embedded in right buttocks-PAT RN advised patient to bring remote DOS History of surgery on left wrist History of cystoscopy B/L stents (since removed) History of colonoscopy History of esophagogastroduodenoscopy (EGD) History of tooth extraction Hx of fusion of cervical spine "Good ROM" per patient History of nasal surgery H/O repair of left rotator cuff History of cataract surgery R/L History of hip replacement R/L H/O: hysterectomy H/O bladder repair surgery History of back surgery 3 lumbar surgeries-2 fusions; SI joint fusion Family History Brother Myocardial infarction, Onset Age: 46 Fatal Diabetes 4 BROTHERS WITH THIS Mother Parkinson's disease Father Multiple sclerosis Social History Smoking Status: Never smoker Second Hand Exposure: No; Do You Dip or Chew Tobacco: No; Tobacco Cessation Education Requested by Patient: No Hx Alcohol Use: No Hx Substance Use: No Preferred Language: Yi Communication Ability: Effective Bench Assembler Required: No Beliefs That Will Affect Care: None marital status: Current Living Situation: Spouse Current Living Situation Comment: Home with spouse Other Information That Helps Us Care for You: No Feels Safe at Home: Yes Safety Concerns: Feels Safe At This Time Assistive Devices: Cane, Glasses and Hearing Aid - Bilateral Review of Systems Review of Systems: All systems reviewed & are unremarkable except as noted in HPI & below Physical Exam Physical Exam: General/Psych: WD/WN, sitting up in chair, NAD, conversing easily, euthymic affect Head: normocephalic, atraumatic Eyes: normal inspection, PERRL, conjunctivae pink ENT: external ear and nose normal, oropharynx normal Neck: normal visual inspection, trachea midline Respiratory: normal respiratory effort, lungs clear to auscultation, no whe akilah/rales/rhonchi, no accessory muscle use Cardiovascular: regular rate and rhythm, no murmur/rub/gallop, no JVD Extremities: no cyanosis or clubbing, normal peripheral pulses, no BLE edema, TEDs in place Abdomen/GI: +bowel sounds, soft, nontender Neurologic/MSK: A+Ox3, motor strength 5/5, moves all extremities Skin: no rashes, normal color, warm and dry, TAE drain in place, island dressing c/d/i Results & Data Vital Signs (Past 12 Hours) Vital Signs Temp Pulse Pulse Resp BP BP Pulse Ox 11/23/24 14:30 36.3 C L 69 17 143/62 H 96 11/23/24 14:10 67 13 151/68 H 100 11/23/24 14:00 68 12 161/61 H 100 11/23/24 13:50 36.4 C L 67 12 171/69 H 99 11/23/24 13:40 65 14 162/87 H 99 11/23/24 13:30 66 15 181/71 H 100 11/23/24 13:20 67 14 181/75 H 100 11/23/24 13:10 68 12 174/70 H 100 11/23/24 13:00 65 16 160/65 H 99 11/23/24 12:58 36.5 C 68 14 169/75 H 96 11/23/24 09:17 36.4 C L 70 18 181/82 H 97 O2 Del Method O2 Flow Rate 11/23/24 14:30 Room Air 11/23/24 14:10 Nasal Cannula 2 11/23/24 14:00 Nasal Cannula 2 11/23/24 13:50 Nasal Cannula 2 11/23/24 13:40 Nasal Cannula 2 11/23/24 13:30 Oxymask 2 11/23/24 13:20 Oxymask 3 11/23/24 13:10 Oxymask 3 11/23/24 13:00 Oxymask 6 11/23/24 12:58 Oxymask 6 11/23/24 09:17 Room Air Medications Administered Current Inpatient Medications Acetaminophen (Acetaminophen 500 Mg Tab) 1,000 mg PO PREOP DELORIS Stop: 11/23/24 18:00 Last Admin: 11/23/24 09:43 Dose: 1,000 mg Acetaminophen (Acetaminophen 500 Mg Tab) 1,000 mg PO Q8H PRN PRN Reason: MILD Pain Scale 1,2,3 & Pre PT Stop: 12/23/24 13:04 Al Hydrox/Mg Hydrox/Simethicone (Aluminum/Magnesium Susp 30 Ml Udc) 30 ml PO Q6H PRN PRN Reason: Dyspepsia Stop: 12/23/24 13:04 Atorvastatin Calcium (Atorvastatin 40 Mg Tab) 80 mg PO HS DELORIS Stop: 12/23/24 20:59 Atropine Sulfate (Atropine Sulfate 0.1 Mg/Ml 10ml Syr) 0.5 mg IV Q1M PRN PRN Reason: PACU Use-HR<40 &/or Bradycardi Stop: 11/23/24 18:02 Bisacodyl (Bisacodyl 10 Mg Supp) 10 mg DE DAILY PRN PRN Reason: Constipation Stop: 12/23/24 13:04 Buprenorphine HCl (Buprenorphine 10 Mcg/Hr Tdsy) 2 patch TD Q7D DELORIS Stop: 12/23/24 14:44 Celecoxib (Celebrex 200 Mg Cap) 200 mg PO PREOP DELORIS Stop: 11/23/24 18:00 Last Admin: 11/23/24 09:43 Dose: 200 mg Diphenhydramine HCl (Diphenhydramine Capsule 25 Mg Cap) 25 mg PO Q6H PRN PRN Reason: Allergic Rhinitis/Insomnia Stop: 12/23/24 13:04 Ephedrine Sulfate (Ephedrine Sulfate 50 Mg/Ml Amp) 5 mg IV Q5M PRN PRN Reason: PACU Use Only-SBP<90 mmHg Stop: 11/23/24 18:02 Famotidine (Famotidine 20 Mg Tab) 20 mg PO Q12H PRN PRN Reason: Dyspepsia Stop: 12/23/24 13:04 Ferrous Sulfate (Ferrous Sulfate 325 Mg Tab) 325 mg PO QAM DELORIS Stop: 12/24/24 08:59 Hydromorphone HCl (Hydromorphone Inj 2 Mg/Ml Syr/Vial) 0.5 mg IV Q5M PRN PRN Reason: PACU Use Only-Pain Stop: 11/23/24 18:02 Last Admin: 11/23/24 13:50 Dose: 0.5 mg Hydromorphone HCl (Hydromorphone Inj 0.5 Mg/0.5 Ml Syr) 0.5 mg IV Q3H PRN PRN Reason: MODERATE Pain (Scale 4,5,6) & Pre PT Stop: 12/07/24 13:04 Hydromorphone HCl (Hydromorphone Inj 1 Mg/Ml Syringe) 1 mg IV Q3H PRN PRN Reason: SEVERE Pain (Scale 7,8,9,10) Stop: 12/07/24 13:04 Hydroxyzine HCl (Hydroxyzine Hcl 25 Mg Tab) 25 mg PO Q8H PRN PRN Reason: Anxiety Stop: 12/23/24 13:04 Lactated Ringer's (Lr) 1,000 mls @ 15 mls/hr IV .Q24H DELORIS Stop: 11/24/24 05:59 Last Infusion: 11/23/24 10:58 Dose: Infused Lactated Ringer's (Lr) 1,000 mls @ 60 mls/hr IV .[id number] DELORIS Stop: 11/23/24 22:39 Last Admin: 11/23/24 09:44 Dose: Not Given Cefazolin Sodium (Ancef 2000mg) 2,000 mg in 15 mls @ 3.75 mls/min IV PREOP DELORIS; Protocol Stop: 11/23/24 18:00 Last Admin: 11/23/24 11:28 Dose: 3.75 mls/min Promethazine HCl 6.25 mg/ (Sodium Chloride) 50.25 mls @ 204 mls/hr IV ONCE PRN PRN Reason: PACU Use Only-Nausea/Vomiting Stop: 11/23/24 18:02 Acetaminophen (Ofirmev) 1,000 mg in 100 mls @ 400 mls/hr IV Q8H PRN PRN Reason: Pain Rating 1-3 & Pre PT Stop: 11/24/24 13:06 Cefazolin Sodium (Ancef 2000mg) 2,000 mg in 15 mls @ 3.75 mls/min IV Q8H DELORIS; Protocol Stop: 11/24/24 03:03 Promethazine HCl (Phenergan) 12.5 mg in 50.5 mls @ 202 mls/hr IV Q6H PRN PRN Reason: Nausea And Vomiting Stop: 12/23/24 13:04 Dexamethasone 6 mg/ Syringe 1.5 mls @ 1 mls/min IV DAILY DELORIS Stop: 11/26/24 09:02 Influenza Virus Vaccine Quadrival (Do Not Administer Flu Vaccine) 1 each N/A PRN PRN PRN Reason: Notification Stop: 12/23/24 13:04 Lorazepam (Lorazepam 0.5 Mg Tab) 0.5 mg PO Q8H PRN PRN Reason: Sedation/Anxiety Stop: 12/23/24 13:04 Lorazepam (Lorazepam 2 Mg/1 Ml Vial) 0.5 mg IV Q8H PRN PRN Reason: Sedation/Anxiety Stop: 12/23/24 13:04 Losartan Potassium (Losartan Potassium 25 Mg Tab) 25 mg PO QAM DELORIS Stop: 12/24/24 08:59 Magnesium Hydroxide (Magnesium Hydroxide Susp 30 Ml Udc) 30 ml PO Q24H PRN PRN Reason: Constipation Stop: 12/23/24 13:04 Metoclopramide HCl (Metoclopramide Hcl Inj 5 Mg/Ml 2 Ml Vial) 10 mg IV Q6H PRN PRN Reason: Nausea &/or Vomiting Stop: 12/23/24 13:04 Miscellaneous (Check Buprenorphine Patch) 1 each N/A QS DELORIS Stop: 12/23/24 15:59 Naloxone HCl (Naloxone Hcl 0.4 Mg/1 Ml Vial/Carp) 0.1 mg IV Q5M PRN PRN Reason: Oversedation/Resp depression Stop: 12/23/24 13:04 Ondansetron HCl (Ondansetron 4 Mg Od Tab) 8 mg PO Q8H PRN PRN Reason: migraine Stop: 12/23/24 14:28 Ondansetron HCl (Ondansetron Inj 2 Mg/Ml 2 Ml Vial) 4 mg IV Q6H PRN PRN Reason: Nausea &/or Vomiting Stop: 12/23/24 13:04 Ondansetron HCl (Ondansetron 4 Mg Od Tab) 4 mg PO Q6H PRN PRN Reason: Nausea Stop: 12/23/24 13:04 Oxybutynin Chloride (Oxybutynin Chloride Xl 5 Mg Tabcr) 10 mg PO QAM DELORIS Stop: 12/24/24 08:59 Oxycodone HCl (Oxycodone Hcl Ir 5 Mg Tab (Immediate Release)) 5 - 10 mg PO Q4H PRN PRN Reason: Pain & Pre PT Stop: 12/07/24 13:04 Pantoprazole Sodium (Pantoprazole 40 Mg Tab) 40 mg PO QAM DELORIS Stop: 12/24/24 08:59 Pneumococcal Polyvalent Vaccine (Do Not Administer Pneumococcal Vaccine) 1 each N/A PRN PRN PRN Reason: Notification Stop: 12/23/24 13:04 Polyethylene Glycol (Polyethylene (Miralax) 17 Gm Pack) 17 gm PO Q6 DELORIS Stop: 12/24/24 05:59 Senna/Docusate Sodium (Docusate Sodium/Senna 50/8.6mg Tab) 2 tab PO HS DELORIS Stop: 12/23/24 20:59 Sodium Biphosphate/Sodium Phosphate (Sod Phosphate/Sod Biphosphate Enema 132 Ml Btl) 132 ml DE ONE PRN PRN Reason: Constipation Stop: 12/23/24 13:04 Sumatriptan Succinate (Sumatriptan Succinate 50 Mg Tab) 50 mg PO DAILY PRN PRN Reason: Migraine Headache Stop: 12/23/24 13:04 Tramadol HCl (Tramadol Hcl 50 Mg Tablet) 50 - 100 mg PO Q4H PRN PRN Reason: Moderate-Severe pain & Pre PT Stop: 12/23/24 13:04 Trazodone HCl (Trazodone Hcl 100 Mg Tab) 100 mg PO HS DELORIS Stop: 12/23/24 20:59 Venlafaxine HCl (Venlafaxine Hcl 50 Mg Tab) 75 mg PO QAM DELORIS Stop: 12/24/24 08:59 Verapamil HCl (Verapamil Hcl 240 Mg Tabcr) 240 mg PO QAM DELORIS Stop: 12/24/24 08:59 Vitamin D (Cholecalciferol 25 Mcg (1000 Units) Tab) 25 mcg PO QAM DELORIS Stop: 12/24/24 08:59
[2024-11-23] MEDS: BUPRENORPHINE 10 MCG/HR TDSY TD SCH (16:39)
[2024-11-23] MEDS: CHECK BUPRENORPHINE PATCH SCH (16:42)
[2024-11-23] MEDS: oxyCODONE HCL IR 5 MG TAB (IMMEDIATE RELEASE) PO PRN (21:06)
[2024-11-23] MEDS: DOCUSATE SODIUM/SENNA 50/8.6MG TAB PO SCH (21:06)
[2024-11-23] MEDS: ATORVASTATIN 40 MG TAB PO SCH (21:07)
[2024-11-23] MEDS: traZODone HCL 100 MG TAB PO SCH (21:28)
[2024-11-24] MEDS: POLYETHYLENE (MIRALAX) 17 GM PACK PO SCH (05:43)
[2024-11-24 06:18] LABS: Basophils # (auto) 0.04 K/uL (0.00-0.20); Basophils % (auto) 0.3 %; Eosinophils # (auto) 0.02 K/uL (0.00-0.50); Eosinophils % (auto) 0.1 %; Hematocrit (blood only) 35.4 % (37.0-47.0); Hemoglobin 11.8 g/dl (12.0-16.0); Immature Granulocytes # (auto) 0.07 K/uL (0.01-0.20); Immature Granulocytes % (auto) 0.5 %; Lymphocytes # (auto) 1.79 K/uL (1.20-3.40); Lymphocytes % (auto) 12.1 %; Mean Corpuscular Hemoglobin 30.7 pg (25.0-34.0); Mean Corpuscular Hgb Conc 33.3 g/dL (32.0-36.0); Mean Corpuscular Volume 92.2 fL (80.0-100.0); Mean Platelet Volume 10.2 fL (9.4-12.4); Monocytes # (auto) 0.76 K/uL (0.11-0.59); Monocytes % (auto) 5.1 %; Neutrophils # (auto) 12.11 K/uL (1.40-6.50); Neutrophils % (auto) 81.9 %; Platelet Count 142 K/uL (130-400); RDW Coefficient of Variation 13.1 % (11.5-14.5); RDW Standard Deviation 43.3 fL (36.4-46.3); Red Blood Count 3.84 M/uL (4.20-5.40); White Blood Count 14.79 K/ul (4.8-10.8)
[2024-11-24 06:43] LABS: BUN Creatinine Ratio 25.3 (10-20); Creatinine Clr Calc Pharmacy 47.7 ml/min; Potassium 4.8 mmol/L (3.5-5.1)
--- NOTE | 2024-11-24 07:12 | Hospitalist Progress Note ---
Date of Service November 24, 2024 Assessment & Plan (1) Myelopathy concurrent with and due to spinal stenosis of thoracic region: (2) Depression with anxiety: (3) CKD (chronic kidney disease), stage III: (4) HTN (hypertension): (5) Dyslipidemia: (6) Diabetes mellitus type 2, diet-controlled: (7) GERD (gastroesophageal reflux disease): (8) Migraine: Plan 79 year old female with PMH significant for HTN, HLD, DMII (diet controlled), CKD III, RENATA, depression/anxiety, insomnia, GERD, lumbar spinal stenosis s/p L1- L2 decompression and T11-T12 fusion by Dr Oconnell in February 2023 with subsequent thoracic facet cyst and thoracic spinal stenosis with myelopathy who underwent T10-T11 decompression fusion connecting to hardware at T11 on 11/23/2024. She was cleared for surgery on 11/11/[address] Win. We have been consulted for post op medical management. Thoracic facet cyst Thoracic spinal stenosis with myelopathy POD#1 T10-T11 decompression fusion by Dr Oconnell Pain control, DVT prophylaxis, bowel regimen, activity per primary team Encourage incentive spirometry Hypertension Continue losartan and verapamil per home dosing Monitor BPs Hyperlipidemia Continue atorvastatin per home dosing DMII A1C 6.8 on 11/11/2024 Diet controlled CKD III Monitor labs (preop creat 1.17 on 11/11/2024) RENATA Acute blood loss anemia, post-op vs. dilutional (preop Hgb 13.1 on 11/11/2024) current Hgb post-op 11.8 Continue ferrous sulfate per home dosing cont. to monitor H&H no need for blood transfusion at this time Depression/anxiety Continue home venlafaxine Insomnia Continue home trazodone GERD Continue PPI Migraines Continue sumatriptan PRN Thank you for this consultation. We will continue to follow this patient with you. [facility] available [facility]/01 via the role in [employer] - please don't hesitate to reach out with questions. Admission and Anticipated Discharge Date Admission Date: November 23, 2024 Subjective Pt seen in follow up of med consult, pt s/p spinal surgery Currently sitting up in chair in NAD Overall pt says she is feeling well, denies any significant pain No fever, chills, chest pain or shortness of breath. No abd. pain, n/v Review of Systems Review of Systems: All systems reviewed & are unremarkable except as noted in Subjective Physical Exam Physical Exam: General/Psych: WD/WN, sitting up in chair, NAD Head: normocephalic, atraumatic Eyes: normal inspection, PERRL, conjunctivae pink ENT: external ear and nose normal Neck: normal visual inspection Respiratory: normal respiratory effort, lungs clear to auscultation, no wheeze/rales/rhonchi, no accessory muscle use Cardiovascular: regular rate and rhythm, no murmur Extremities: no BLE edema, TEDs in place, moves extremities Abdomen/GI: +bowel sounds, soft, nontender Neurologic/MSK: A+Ox3, motor strength 5/5, moves all extremities Skin: no rashes, normal color, warm and dry, TAE drain in place, dressings c/d/i Results & Data Results & Data Vital Signs (Past 12 Hours) Vital Signs Temp Pulse Resp BP Pulse Ox O2 Del Method 11/24/24 03:00 36.7 C 68 16 135/83 95 Room Air 11/23/24 23:00 36.8 C 63 16 126/72 95 Room Air Laboratory Results 11/24/24 11/23/24 11/23/24 Range/Units 05:55 13:02 09:15 WBC 14.79 H (4.8-10.8) K/ul RBC 3.84 L (4.20-5.40) M/uL Hgb 11.8 L (12.0-16.0) g/dl Hct 35.4 L (37.0-47.0) % MCV 92.2 (80.0-100.0) fL MCH 30.7 (25.0-34.0) pg MCHC 33.3 (32.0-36.0) g/dL RDW Std Deviation 43.3 (36.4-46.3) fL RDW Coeff of Cristel 13.1 (11.5-14.5) % Plt Count 142 (130-400) K/uL MPV 10.2 (9.4-12.4) fL Immature Gran % (Auto) 0.5 % Neut % (Auto) 81.9 % Lymph % (Auto) 12.1 % [place] % (Auto) 5.1 % Eos % (Auto) 0.1 % Baso % (Auto) 0.3 % Neut # (Auto) 12.11 H (1.40-6.50) K/uL Lymph # (Auto) 1.79 (1.20-3.40) K/uL [place] # (Auto) 0.76 H (0.11-0.59) K/uL Eos # (Auto) 0.02 (0.00-0.50) K/uL Baso # (Auto) 0.04 (0.00-0.20) K/uL Immature Gran # (Auto) 0.07 (0.01-0.20) K/uL Sodium 140 (136-145) mmol/L Potassium 4.8 (3.5-5.1) mmol/L Chloride 106 (98-107) mmol/L Carbon Dioxide 28 (21-32) mmol/L Anion Gap 6 (3-11) BUN 25 H (6-23) mg/dl Creatinine 0.99 (0.6-1.2) mg/dl Est Cr Clr Drug Dosing 47.7 ml/min eGFR 58.00 BUN/Creatinine Ratio 25.3 H (10-20) Glucose 125 H (70-99(Fasting)) mg/dl POC Glucose 194 H 131 H (70-99) mg/dl Calcium 9.0 (8.6-10.3) mg/dl Medications Administered Current Inpatient Medications Acetaminophen (Acetaminophen 500 Mg Tab) 1,000 mg PO Q8H PRN PRN Reason: MILD Pain Scale 1,2,3 & Pre PT Stop: 12/23/24 13:04 Al Hydrox/Mg Hydrox/Simethicone (Aluminum/Magnesium Susp 30 Ml Udc) 30 ml PO Q6H PRN PRN Reason: Dyspepsia Stop: 12/23/24 13:04 Atorvastatin Calcium (Atorvastatin 40 Mg Tab) 80 mg PO HS DELORIS Stop: 12/23/24 20:59 Last Admin: 11/23/24 21:07 Dose: 80 mg Bisacodyl (Bisacodyl 10 Mg Supp) 10 mg VT DAILY PRN PRN Reason: Constipation Stop: 12/23/24 13:04 Buprenorphine HCl (Buprenorphine 10 Mcg/Hr Tdsy) 2 patch TD Q7D DELORIS Stop: 12/23/24 14:44 Last Admin: 11/23/24 16:39 Dose: 2 patch Diphenhydramine HCl (Diphenhydramine Capsule 25 Mg Cap) 25 mg PO Q6H PRN PRN Reason: Allergic Rhinitis/Insomnia Stop: 12/23/24 13:04 Famotidine (Famotidine 20 Mg Tab) 20 mg PO Q12H PRN PRN Reason: Dyspepsia Stop: 12/23/24 13:04 Ferrous Sulfate (Ferrous Sulfate 325 Mg Tab) 325 mg PO QAM [facility] Stop: 12/24/24 08:59 Hydromorphone HCl (Hydromorphone Inj 0.5 Mg/0.5 Ml Syr) 0.5 mg IV Q3H PRN PRN Reason: MODERATE Pain (Scale 4,5,6) & Pre PT Stop: 12/07/24 13:04 Hydromorphone HCl (Hydromorphone Inj 1 Mg/Ml Syringe) 1 mg IV Q3H PRN PRN Reason: SEVERE Pain (Scale 7,8,9,10) Stop: 12/07/24 13:04 Hydroxyzine HCl (Hydroxyzine Hcl 25 Mg Tab) 25 mg PO Q8H PRN PRN Reason: Anxiety Stop: 12/23/24 13:04 Acetaminophen (Ofirmev) 1,000 mg in 100 mls @ 400 mls/hr IV Q8H PRN PRN Reason: Pain Rating 1-3 & Pre PT Stop: 11/24/24 13:06 Promethazine HCl (Phenergan) 12.5 mg in 50.5 mls @ 202 mls/hr IV Q6H PRN PRN Reason: Nausea And Vomiting Stop: 12/23/24 13:04 Dexamethasone 6 mg/ Syringe 1.5 mls @ 1 mls/min IV DAILY [facility] Stop: 11/26/24 09:02 Influenza Virus Vaccine Quadrival (Do Not Administer Flu Vaccine) 1 each N/A PRN PRN PRN Reason: Notification Stop: 12/23/24 13:04 Lorazepam (Lorazepam 0.5 Mg Tab) 0.5 mg PO Q8H PRN PRN Reason: Sedation/Anxiety Stop: 12/23/24 13:04 Lorazepam (Lorazepam 2 Mg/1 Ml Vial) 0.5 mg IV Q8H PRN PRN Reason: Sedation/Anxiety Stop: 12/23/24 13:04 Losartan Potassium (Losartan Potassium 25 Mg Tab) [facility]: 12/24/24 08:59 Magnesium Hydroxide (Magnesium Hydroxide Susp 30 Ml Udc) 30 ml PO Q24H PRN PRN Reason: Constipation Stop: 12/23/24 13:04 Metoclopramide HCl (Metoclopramide Hcl Inj 5 Mg/Ml 2 Ml Vial) 10 mg IV Q6H PRN PRN Reason: Nausea &/or Vomiting Stop: 12/23/24 13:04 Miscellaneous (Check Buprenorphine Patch) 1 each N/A QS [facility] Stop: 12/23/24 15:59 Last Admin: 11/24/24 00:41 Dose: 1 each Naloxone HCl (Naloxone Hcl 0.4 Mg/1 Ml Vial/Carp) 0.1 mg IV Q5M PRN PRN Reason: Oversedation/Resp depression Stop: 12/23/24 13:04 Ondansetron HCl (Ondansetron 4 Mg Od Tab) 8 mg PO Q8H PRN PRN Reason: migraine Stop: 12/23/24 14:28 Ondansetron HCl (Ondansetron Inj 2 Mg/Ml 2 Ml Vial) 4 mg IV Q6H PRN PRN Reason: Nausea &/or Vomiting Stop: 12/23/24 13:04 Ondansetron HCl (Ondansetron 4 Mg Od Tab) 4 mg PO Q6H PRN PRN Reason: Nausea Stop: 12/23/24 13:04 Oxybutynin Chloride (Oxybutynin Chloride Xl 5 Mg Tabcr) 10 mg PO [facility] Stop: 12/24/24 08:59 Oxycodone HCl (Oxycodone Hcl Ir 5 Mg Tab (Immediate Release)) 5 - 10 mg PO Q4H PRN PRN Reason: Pain & Pre PT Stop: 12/07/24 13:04 Last Admin: 11/23/24 21:06 Dose: 10 mg Pantoprazole Sodium (Pantoprazole 40 Mg Tab) 40 [facility] [place] Stop: 12/24/24 08:59 Pneumococcal Polyvalent Vaccine (Do Not Administer Pneumococcal Vaccine) 1 each N/A PRN PRN PRN Reason: Notification Stop: 12/23/24 13:04 Polyethylene Glycol (Polyethylene (Miralax) 17 Gm Pack) 17 gm PO Q6 [facility] Stop: 12/24/24 05:59 Last Admin: 11/24/24 05:43 Dose: 17 gm Senna/Docusate Sodium (Docusate Sodium/Senna 50/8.6mg Tab) 2 tab PO HS DELORIS Stop: 12/23/24 20:59 Last Admin: 11/23/24 21:06 Dose: 2 tab Sodium Biphosphate/Sodium Phosphate (Sod Phosphate/Sod Biphosphate Enema 132 Ml Btl) 132 ml VT ONE PRN PRN Reason: Constipation Stop: 12/23/24 13:04 Sumatriptan Succinate (Sumatriptan Succinate 50 Mg Tab) 50 mg PO DAILY PRN PRN Reason: Migraine Headache Stop: 12/23/24 13:04 Tramadol HCl (Tramadol Hcl 50 Mg Tablet) 50 - 100 mg PO Q4H PRN PRN Reason: Moderate-Severe pain & Pre PT Stop: 12/23/24 13:04 Trazodone HCl (Trazodone Hcl 100 Mg Tab) 100 mg PO HS DELORIS Stop: 12/23/24 20:59 Last Admin: 11/23/24 21:28 Dose: 100 mg Venlafaxine HCl (Venlafaxine Hcl 50 Mg Tab) 75 mg PO QAM [facility] Stop: 12/24/24 08:59 Verapamil HCl (Verapamil Hcl 240 Mg Tabcr) 240 mg PO QAM [facility] Stop: 12/24/24 08:59 Vitamin D (Cholecalciferol 25 Mcg (1000 Units) Tab) 25 mcg PO QAM [facility] Stop: 12/24/24 08:59
[2024-11-24] MEDS: dexAMETHasone 6 MG in SYRINGE 0 ML IV SCH (08:27)
[2024-11-24] MEDS: FERROUS SULFATE 325 MG TAB PO SCH (08:27)
[2024-11-24] MEDS: PANTOprazole 40 MG TAB PO SCH (08:27)
[2024-11-24] MEDS: LOSARTAN POTASSIUM 25 MG TAB PO SCH (08:27)
[2024-11-24] MEDS: traMADol HCL 50 MG TABLET PO PRN (08:27)
[2024-11-24] MEDS: OXYBUTYNIN CHLORIDE XL 5 MG TABCR PO SCH (08:28)
[2024-11-24] MEDS: CHOLECALCIFEROL 25 MCG (1000 UNITS) TAB PO SCH (08:28)
[2024-11-24] MEDS: VERAPAMIL HCL 240 MG TABCR PO SCH (08:28)
[2024-11-24] MEDS: VENLAFAXINE HCL 50 MG TAB PO SCH (08:28)
--- NOTE | 2024-11-24 08:29 | Orthopedic Progress Note ---
Date of Service November 24, 2024 Assessment & Plan (1) Myelopathy concurrent with and due to spinal stenosis of thoracic region: Plan: Li is postoperative day 1 status post T10 -T11 decompression and fusion. She will start physical therapy today. Maintain TAE drain. DVT prophylaxis is in the form of teds and SCDs. Continue with pain control. Anticipate discharge home within the next day or 2. Admission and Anticipated Discharge Date Admission Date: November 23, 2024 Subjective Li is postoperative day 1 status post T10-T11 decompression and fusion. She had an uneventful evening. Pain is controlled. TAE drain output last shift is 10 cc. H&H this morning are 11.8 and 35.4 respectively. No other complaints. Review of Systems Review of Systems: All systems reviewed & are unremarkable except as noted in HPI & below Physical Exam Physical Exam: She is laying in bed on her side in no acute distress alert and oriented x 3 strength is intact bilateral lower extremities Dressing is clean dry intact with functioning TAE drain Results & Data Vital Signs (Past 12 Hours) Vital Signs Temp Pulse Resp BP Pulse Ox O2 Del Method 11/24/24 08:22 36.8 C 79 16 135/57 L 99 Room Air 11/24/24 03:00 36.7 C 68 16 135/83 95 Room Air 11/23/24 23:00 36.8 C 63 16 126/72 95 Room Air
[2024-11-24] MEDS: ACETAMINOPHEN 500 MG TAB PO PRN (17:08)
[2024-11-24 19:41] VITALS: RESP 16
[2024-11-25 06:12] LABS: Hematocrit (blood only) 35.2 % (37.0-47.0); Hemoglobin 11.6 g/dl (12.0-16.0); Mean Corpuscular Hemoglobin 29.9 pg (25.0-34.0); Mean Corpuscular Volume 90.7 fL (80.0-100.0); Mean Platelet Volume 10.3 fL (9.4-12.4); Platelet Count 129 K/uL (130-400); RDW Coefficient of Variation 13.2 % (11.5-14.5); RDW Standard Deviation 43.3 fL (36.4-46.3); Red Blood Count 3.88 M/uL (4.20-5.40)
[2024-11-25 06:29] LABS: BUN Creatinine Ratio 25.6 (10-20); Calcium 9.3 mg/dl (8.6-10.3); Creatinine Clr Calc Pharmacy 52.5 ml/min; Magnesium 1.8 mg/dl (1.7-2.4); Phosphorus 2.7 mg/dl (2.5-4.9); Potassium 4.1 mmol/L (3.5-5.1)
[2024-11-25 08:03] VITALS: PULSE 72; TEMP 97.5; O2SAT 97
--- NOTE | 2024-11-25 08:58 | Discharge Summary ---
Date of Service November 25, 2024 Admission HPI Per Admitting Provider 79-year-old female with chronic persistent back and leg pain after failing course of nonoperative care is here for surgical management. Admission Exam (Per Admitting) Constitutional WD/WN, vitals as above Eyes normal visual car by confrontation ENMT external ear and nose normal, oropharynx normal Neck normal visual inspection Respiratory normal respiratory effort Cardiovascular Extremities: normal capillary refill Gastrointestinal (Abdomen) Inspection/Auscultation: abdomen normal to inspection Musculoskeletal Spine: + pain with thoraco-lumbar ROM Extremities: extremities normal to inspection Gait: normal gait Skin no rashes, warm and dry Neurologic normal touch/pain/proprioception and moves all extremities Psychiatric A+Ox3, euthymic affect Eye Contact: good eye contact Discharge Data Consultations 11/23/24 13:05 Consult Hospitalist Routine Procedures Performed Operation Date: 11/23/24 10:25 Actual Procedures p T10-T11 Decompression and Fusion, Connecting to Hardware T11, Spinal Cord Monitoring(Not Applicable) - Diogo Oconnell, Hospital Course (1) Myelopathy concurrent with and due to spinal stenosis of thoracic region: Li is being discharged home on postoperative day 2 status post T10-T11 decompression and instrumented fusion. She has had an uneventful postoperative hospital course. Pain is controlled. Leg symptoms improved parents. H&H is morning are 11.6 and 35.2 respectively. TAE drain output last shift is 20 cc. Yesterday in physical therapy ambulating 290 feet plus the hallways. Discharge Instructions ACTIVITY RECOMMENDATIONS: SELF CARE INSTRUCTIONS AFTER THORACIC/LUMBAR FUSIONS 1. You may walk to your tolerance. It is good exercise for your legs and back. Expect some back and intermittent leg aches and pains. 2. You may perform "counter-top" level activities (make a sandwich, loretta with a project, etc.). 3. No bending or lifting of more than 10 pounds or back twisting of any nature (roll like a log when turning in bed). 4. You may ride in a car for 20-30 minutes at a time. No driving until after your first visit with your doctor. 5. Frequent changes of position and restricting sitting to 30 minutes at a time will help limit the amount of back spasms and stiffness you may experience. 6. You may discontinue the use of ambulatory aids (cane, crutches, etc.) once your strength and confidence allow. 7. You may precise winder the shower and let water strike your incision when you arrive home at least once daily. Do not take a tub bath, sit in a hot tub or go into a swimming pool until after your first recheck in the office. 8. You may resume previous diet. SPECIAL CARE INSTRUCTIONS: VERY IMPORTANT TO READ AND REVIEW A. Your surgical incision has been closed with a cosmetic suture under the skin that will dissolve in about 6 weeks. In 14 days, you can use a pair of clean scissors and cut the suture that is left outside of the skin at the ends of your incision. 1. The small skin tapes can be removed 7 days after surgery if they have not fallen off by that point. 2. You may keep the wound open to air as much as possible to promote healing after post-op day number 5 unless told otherwise by your doctor. 3. If you think the wound looks like it is becoming infected (redness or worsening drainage) and/or you are experiencing fever, chill or worsening back pain and muscle spasms, contact the office so that we may evaluate you as soon as possible. B. Complications are uncommon, but please contact us if you have any signs or symptoms of: 1. wound infection (fever higher than 102.5 degrees F, redness, separation of wound, drainage, or increasing pain from the incision) 2. blood clots in legs (pain, swelling, redness and warmth in legs) 3. urinary tract infection (fever higher than 102.5 degrees F, burning upon urination or increased frequency of urination) 4. nerve problems (inability to walk on your toes or heels, numbness, loss of bowel or bladder control) 5. any other symptoms that concern you C. Please call the office at if you have any concerns or questions about your operation or recovery. D. No smoking! Smoking drastically decreases the chance of a solid fusion. E. Do not take any anti-inflammatory medications (Indocin, Advil, Motrin, Aspirin, Naprosyn, etc.) as these may inhibit the chance of a solid fusion. Tylenol is okay to take for pain. MANAGING PAIN AFTER SPINAL SURGERY 1. Narcotic medication is intended for short-term use and will be provided for surgical pain. Surgical pain usually lasts for a period of 4-6 weeks. Narcotic medication includes Percocet, Vicodin, Darvocet, Tylenol #3 or Lortab. 2. Longer-term pain is more appropriately treated with non-narcotic medication such as Tylenol ES. 3. Muscle spasm is not appropriately treated with narcotics. Muscle relaxers such as Soma, Flexeril or Skelaxin can be used along with Tylenol ES. 4. Remember that we all live with some "aches and pains". This is not unusual or uncommon after an injury or as we get older. a. Back pain is expected and may include muscle spasms for 4 to 6 weeks after surgery. The pain should gradually improve. If the pain worsens for no apparent reason, please contact the office. b. Intermittent leg pain may also be experienced and should not be concerned about unless it worsens for no apparent reason. If so, please contact the office. 5. We will provide appropriate medication within the normal guidelines of their prescribed use. We will also be very cautious and aware of potential abuse and extended duration of patients' medication needs. a. Pain medications are for your comfort and to assist with sleep and rest so that the tissue can heal. They are not provided in order to return to normal activity and should not be used through the day. To do so or worsening pain at night can result from ongoing tissue damage and development of tolerance to the prescribed medicine. 6. Please allow 2-3 days to process refills. Prescriptions will not be mailed but must be picked up at the office. FOLLOW UP VISIT: Keep your scheduled follow-up appointment. Any questions, please call the office at .
--- NOTE | 2024-11-25 10:54 | Hospitalist Progress Note ---
Date of Service November 25, 2024 Assessment & Plan (1) Myelopathy concurrent with and due to spinal stenosis of thoracic region: (2) Depression with anxiety: (3) CKD (chronic kidney disease), stage III: (4) HTN (hypertension): (5) Dyslipidemia: (6) Diabetes mellitus type 2, diet-controlled: (7) GERD (gastroesophageal reflux disease): (8) Migraine: Plan 79 year old female with PMH significant for HTN, HLD, DMII (diet controlled), CKD III, RENATA, depression/anxiety, insomnia, GERD, lumbar spinal stenosis s/p L1- L2 decompression and T11-T12 fusion by Dr Oconnell in February 2023 with subsequent thoracic facet cyst and thoracic spinal stenosis with myelopathy who underwent T10-T11 decompression fusion connecting to hardware at T11 on 11/23/2024. She was cleared for surgery on 11/11/[address] Win. We have been consulted for post op medical management. Thoracic facet cyst Thoracic spinal stenosis with myelopathy POD#2 T10-T11 decompression fusion by Dr Oconnell Pain control, DVT prophylaxis, bowel regimen, activity per primary team Encourage incentive spirometry Hypertension Continue losartan and verapamil per home dosing Monitor BPs Hyperlipidemia Continue atorvastatin per home dosing DMII A1C 6.8 on 11/11/2024 Diet controlled CKD III Monitor labs (preop creat 1.17 on 11/11/2024) RENATA Acute blood loss anemia, post-op vs. dilutional (preop Hgb 13.1 on 11/11/2024) current Hgb post-op 11.6 (stable from yesterday) Continue ferrous sulfate per home dosing cont. to monitor H&H no need for blood transfusion at this time Depression/anxiety Continue home venlafaxine Insomnia Continue home trazodone GERD Continue PPI Migraines Continue sumatriptan PRN Thank you for this consultation. We will continue to follow this patient with you. A member of the [facility] Hospitalist team is available 26/01 via the role in [employer] - please don't hesitate to reach out with questions. Admission and Anticipated Discharge Date Admission Date: November 23, 2024 Subjective Pt seen in follow up of med consult, pt s/p spinal surgery Currently dressed up, in bathroom, says she will be discharged today. Reports feeling well overall denies any significant pain No fever, chills, chest pain or shortness of breath. No abd. pain, n/v Review of Systems Review of Systems: All systems reviewed & are unremarkable except as noted in Subjective Physical Exam Physical Exam: General/Psych: WD/WN, in NAD Head: normocephalic, atraumatic Eyes: normal inspection, PERRL, conjunctivae pink ENT: external ear and nose normal Neck: normal visual inspection Respiratory: normal respiratory effort, lungs clear to auscultation, no wheeze/rales/rhonchi, no accessory muscle use Cardiovascular: regular rate and rhythm, no murmur Extremities: no BLE edema, TEDs in place, moves extremities Abdomen/GI: +bowel sounds, soft, nontender Neurologic/MSK: A+Ox3, motor strength 5/5, moves all extremities Skin: no rashes, normal color, warm and dry, TAE drain in place, dressings c/d/i Results & Data Results & Data Vital Signs (Past 12 Hours) Vital Signs Temp Pulse Resp BP BP Pulse Ox O2 Del Method 11/25/24 08:01 36.4 C L 72 16 198/80 H 179/82 H 97 Room Air Laboratory Results 11/25/24 Range/Units 05:47 WBC 13.00 H (4.8-10.8) K/ul RBC 3.88 L (4.20-5.40) M/uL Hgb 11.6 L (12.0-16.0) g/dl Hct 35.2 L (37.0-47.0) % MCV 90.7 (80.0-100.0) fL MCH 29.9 (25.0-34.0) pg MCHC 33.0 (32.0-36.0) g/dL RDW Std Deviation 43.3 (36.4-46.3) fL RDW Coeff of Cristel 13.2 (11.5-14.5) % Plt Count 129 L (130-400) K/uL MPV 10.3 (9.4-12.4) fL Sodium 139 (136-145) mmol/L Potassium 4.1 (3.5-5.1) mmol/L Chloride 104 (98-107) mmol/L Carbon Dioxide 27 (21-32) mmol/L Anion Gap 8 (3-11) BUN 23 (6-23) mg/dl Creatinine 0.90 (0.6-1.2) mg/dl Est Cr Clr Drug Dosing 52.5 ml/min eGFR 65.03 BUN/Creatinine Ratio 25.6 H (10-20) Glucose 153 H (70-99(Fasting)) mg/dl Calcium 9.3 (8.6-10.3) mg/dl Phosphorus 2.7 (2.5-4.9) mg/dl Magnesium 1.8 (1.7-2.4) mg/dl Medications Administered Current Inpatient Medications Acetaminophen (Acetaminophen 500 Mg Tab) 1,000 mg PO Q8H PRN PRN Reason: MILD Pain Scale 1,2,3 & Pre PT Stop: 12/23/24 13:04 Last Admin: 11/24/24 17:08 Dose: 1,000 mg Al Hydrox/Mg Hydrox/Simethicone (Aluminum/Magnesium Susp 30 Ml Udc) 30 ml PO Q6H PRN PRN Reason: Dyspepsia Stop: 12/23/24 13:04 Atorvastatin Calcium (Atorvastatin 40 Mg Tab) 80 mg PO HS [facility] Stop: 12/23/24 20:59 Last Admin: 11/24/24 20:40 Dose: 80 mg Bisacodyl (Bisacodyl 10 Mg Supp) 10 mg CA DAILY PRN PRN Reason: Constipation Stop: 12/23/24 13:04 Buprenorphine HCl (Buprenorphine 10 Mcg/Hr Tdsy) 2 patch TD Q7D [facility] Stop: 12/23/24 14:44 Last Admin: 11/23/24 16:39 Dose: 2 patch Diphenhydramine HCl (Diphenhydramine Capsule 25 Mg Cap) 25 mg PO Q6H PRN PRN Reason: Allergic Rhinitis/Insomnia Stop: 12/23/24 13:04 Famotidine (Famotidine 20 Mg Tab) 20 mg PO Q12H PRN PRN Reason: Dyspepsia Stop: 12/23/24 13:04 Ferrous Sulfate (Ferrous Sulfate 325 Mg Tab) 325 mg PO QAM [facility] Stop: 12/24/24 08:59 Last Admin: 11/25/24 08:00 Dose: 325 mg Hydromorphone HCl (Hydromorphone Inj 0.5 Mg/0.5 Ml Syr) 0.5 mg IV Q3H PRN PRN Reason: MODERATE Pain (Scale 4,5,6) & Pre PT Stop: 12/07/24 13:04 Hydromorphone HCl (Hydromorphone Inj 1 Mg/Ml Syringe) 1 mg IV Q3H PRN PRN Reason: SEVERE Pain (Scale 7,8,9,10) Stop: 12/07/24 13:04 Hydroxyzine HCl (Hydroxyzine Hcl 25 Mg Tab) 25 mg PO Q8H PRN PRN Reason: Anxiety Stop: 12/23/24 13:04 Promethazine HCl (Phenergan) 12.5 mg in 50.5 mls @ 202 mls/hr IV Q6H PRN PRN Reason: Nausea And Vomiting Stop: 12/23/24 13:04 Dexamethasone 6 mg/ Syringe 1.5 mls @ 1 mls/min IV DAILY [facility] Stop: 11/26/24 09:02 Last Admin: 11/25/24 07:59 Dose: 1 mls/min Influenza Virus Vaccine Quadrival (Do Not Administer Flu Vaccine) 1 each N/A PRN PRN PRN Reason: Notification Stop: 12/23/24 13:04 Lorazepam (Lorazepam 0.5 Mg Tab) 0.5 mg PO Q8H PRN PRN Reason: Sedation/Anxiety Stop: 12/23/24 13:04 Lorazepam (Lorazepam 2 Mg/1 Ml Vial) 0.5 mg IV Q8H PRN PRN Reason: Sedation/Anxiety Stop: 12/23/24 13:04 Losartan Potassium (Losartan Potassium 25 Mg Tab) 25 mg PO QAM [facility] Stop: 12/24/24 08:59 Last Admin: 11/25/24 08:00 Dose: 25 mg Magnesium Hydroxide (Magnesium Hydroxide Susp 30 Ml Udc) 30 ml PO Q24H PRN PRN Reason: Constipation Stop: 12/23/24 13:04 Metoclopramide HCl (Metoclopramide Hcl Inj 5 Mg/Ml 2 Ml Vial) 10 mg IV Q6H PRN PRN Reason: Nausea &/or Vomiting Stop: 12/23/24 13:04 Miscellaneous (Check Buprenorphine Patch) 1 each N/A QS [facility] Stop: 12/23/24 15:59 Last Admin: 11/25/24 07:59 Dose: 1 each Naloxone HCl (Naloxone Hcl 0.4 Mg/1 Ml Vial/Carp) 0.1 mg IV Q5M PRN PRN Reason: Oversedation/Resp depression Stop: 12/23/24 13:04 Ondansetron HCl (Ondansetron 4 Mg Od Tab) 8 mg PO Q8H PRN PRN Reason: migraine Stop: 12/23/24 14:28 Ondansetron HCl (Ondansetron Inj 2 Mg/Ml 2 Ml Vial) 4 mg IV Q6H PRN PRN Reason: Nausea &/or Vomiting Stop: 12/23/24 13:04 Ondansetron HCl (Ondansetron 4 Mg Od Tab) 4 mg PO Q6H PRN PRN Reason: Nausea Stop: 12/23/24 13:04 Oxybutynin Chloride (Oxybutynin Chloride Xl 5 Mg Tabcr) 10 mg PO QAM [facility] Stop: 12/24/24 08:59 Last Admin: 11/25/24 08:00 Dose: 10 mg Oxycodone HCl (Oxycodone Hcl Ir 5 Mg Tab (Immediate Release)) 5 - 10 mg PO Q4H PRN PRN Reason: Pain & Pre PT Stop: 12/07/24 13:04 Last Admin: 11/23/24 21:06 Dose: 10 mg Pantoprazole Sodium (Pantoprazole 40 Mg Tab) 40 mg PO QAM [facility] Stop: 12/24/24 08:59 Last Admin: 11/25/24 08:00 Dose: 40 mg Pneumococcal Polyvalent Vaccine (Do Not Administer Pneumococcal Vaccine) 1 each N/A PRN PRN PRN Reason: Notification Stop: 12/23/24 13:04 Polyethylene Glycol (Polyethylene (Miralax) 17 Gm Pack) 17 gm PO Q6 [facility] Stop: 12/24/24 05:59 Last Admin: 11/25/24 05:51 Dose: 17 gm Senna/Docusate Sodium (Docusate Sodium/Senna 50/8.6mg Tab) 2 tab PO HS [facility] Stop: 12/23/24 20:59 Last Admin: 11/24/24 20:45 Dose: 2 tab Sodium Biphosphate/Sodium Phosphate (Sod Phosphate/Sod Biphosphate Enema 132 Ml Btl) 132 ml CA ONE PRN PRN Reason: Constipation Stop: 12/23/24 13:04 Sumatriptan Succinate (Sumatriptan Succinate 50 Mg Tab) 50 mg PO DAILY PRN PRN Reason: Migraine Headache Stop: 12/23/24 13:04 Tramadol HCl (Tramadol Hcl 50 Mg Tablet) 50 - 100 mg PO Q4H PRN PRN Reason: Moderate-Severe pain & Pre PT Stop: 12/23/24 13:04 Last Admin: 11/25/24 00:34 Dose: 100 mg Trazodone HCl (Trazodone Hcl 100 Mg Tab) 100 mg PO [facility] Stop: 12/23/24 20:59 Last Admin: 11/24/24 20:43 Dose: 100 mg Venlafaxine HCl ([facility]axine Hcl 50 Mg Tab) [facility] [place]: 12/24/24 08:59 Last Admin: 11/25/24 08:00 Dose: 75 mg Verapamil HCl (Verapamil Hcl 240 Mg Tabcr) [facility] [place]: 12/24/24 08:59 Last Admin: 11/25/24 07:59 Dose: 240 mg Vitamin D (Cholecalciferol 25 Mcg (1000 Units) Tab) 25 [facility]cg [facility] [place]: 12/24/24 08:59 Last Admin: 11/25/24 08:00 Dose: 25 mcg
[2024-11-25 11:27] VITALS: BP 171/71
== END 2024-11-25 13:00 | disposition home or self-care (01) | DRG 402 ==
LOC: ASU 08:56 → 3E 12:56